=== PATIENT | male | born 1970 | race Two or more races ===

== ENCOUNTER 2020-08-19 10:55 | Outpatient (REF) | payer MEDICAID, SELFPAY ==
--- NOTE | 2020-08-19 | US_ITS ---
EXAMINATION: US VENOUS ULTRASOUND WITH DOPPLER LOWER EXTREMITY, LEFT CLINICAL INFORMATION: Edema and pain left lower extremity COMPARISON: None TECHNIQUE: Ultrasound of the deep veins is performed from the hip to the calf with compression sonography and color and pulse Doppler assessment. Spectral analysis with color-flow imaging is performed. FINDINGS: There is normal venous compression and respiratory variation and augmented flow. The visualized common femoral vein, superficial femoral vein, profunda femoral vein, popliteal vein, and the trifurcation region shows no evidence of deep venous thrombosis. There is no significant popliteal fossa cyst. No popliteal artery aneurysm. Patent varicosities are seen about the level of the knee and proximal calf. If the patient's symptoms persist, followup ultrasound in 5 days 7 days might be of value to exclude proximal propagation from a non-visualized calf vein. IMPRESSION: No acute DVT demonstrated in the left lower extremity. Varicose veins without evidence of thrombophlebitis.
== END 2020-08-19 10:56 | disposition home or self-care (01) ==
LOC: HO.US 10:55
PROVIDERS: Visit Provider Family Medicine
DX: R60.0 Localized edema (principal); M79.89 Other specified soft tissue disorders
CPT/HCPCS: 93971

== ENCOUNTER 2020-09-28 10:18 | Outpatient (REF) | payer MEDICAID, SELFPAY ==
[2020-09-28 11:58] LABS: MANUAL DIFF FLAG NO
[2020-09-28 12:01] LABS: Basophils Percent Auto 0.4 % (0-2); Eosinophils Absolute Auto 0.1 X10*3/uL (0.0-0.4); Eosinophils Percent Auto 1.4 % (0-4); Hematocrit 44.9 % (42-52); Hemoglobin 15.5 g/dl (14.0-18.0); Imm Gran Abs Auto 0.01 X10*3/uL (0.00-0.03); Imm Gran Pct Auto 0.2 % (0.0-0.4); Lymphocytes Absolute Auto 0.8 X10*3/uL (1.2-4.9); Lymphocytes Percent Auto 14.7 % (20-40); Mean Corpuscular HGB Conc 34.5 g/dl (31.0-36.0); Mean Corpuscular Hemoglobin 29.9 pg (27.0-33.0); Mean Corpuscular Volume 86.5 fL (80-98); Mean Platelet Volume 10.2 fL (9.4-12.4); Monocytes Absolute Auto 0.5 X10*3/uL (0.1-1.2); Neutrophils Absolute Auto 4.3 X10*3/uL (2.0-8.3); Neutrophils Percent Auto 75.3 % (45-73); Platelet Count 231 X10*3/uL (160-400); Red Blood Count 5.19 X10*6/uL (4.60-5.80); White Blood Count 5.7 X10*3/uL (4.8-10.8)
[2020-09-28 12:24] LABS: Alanine Aminotransferase 16 U/L (0-40); Albumin Level 4.9 g/dL (3.5-5.0); Alkaline Phosphatase 71 U/L (39-117); Anion Gap 14 (12-20); Aspartate Amino Transferase 12 U/L (5-37); Bilirubin Total 0.9 mg/dL (0.0-1.0); Blood Urea Nitrogen 15 mg/dL (9-16); C Reactive Protein 0.07 mg/dL (< or = 0.50); Calcium 10.1 mg/dL (8.4-10.2); Carbon Dioxide 33 mmol/L (22-29); Chloride 101 mmol/L (96-108); Estimated Glomerular Filt Rate > 60; Glucose Random 62 mg/dL (60-115); Potassium 4.2 mmol/l (3.3-5.1); Sodium 144 mmol/L (135-145); Total Protein 7.6 g/dL (6.5-8.0)
[2020-09-28 12:56] LABS: Erythrocyte Sedimentation Rate 3 MM/HR (0-15)
== END 2020-09-28 10:19 | disposition home or self-care (01) ==
LOC: HO.LAB 10:18
PROVIDERS: Visit Provider Student in an Organized Health Care Education/Training Program
DX: L40.50 Arthropathic psoriasis, unspecified (principal); L40.9 Psoriasis, unspecified; Z79.899 Other long term (current) drug therapy
CPT/HCPCS: 36415; 80053; 85025; 85652; 86140

== ENCOUNTER → 2020-09-29 10:03 | Outpatient (BNVA) | payer MEDICAID, SELFPAY | PROVIDERS: PCP Emergency Medicine; Referring Provider Emergency Medicine; Visit Provider Student in an Organized Health Care Education/Training Program | DX: Z76.89 Persons encountering health services in other specified circumstances (principal) ==

== ENCOUNTER 2020-10-16 16:43 | Outpatient (REF) | payer MEDICAID, SELFPAY | END 2020-10-16 16:44 | disposition home or self-care (01) | LOC: HO.LAB 16:43 | PROVIDERS: Visit Provider Internal Medicine | DX: Z20.828 Contact with and (suspected) exposure to other viral communicable diseases (principal) | CPT/HCPCS: C9803; U0003 ==

== ENCOUNTER 2021-02-04 14:37 | Outpatient (REF) | payer MEDICAID, SELFPAY ==
[2021-02-04 15:49] LABS: MANUAL DIFF FLAG NO
[2021-02-04 15:58] LABS: Basophils Percent Auto 0.4 % (0-2); Eosinophils Absolute Auto 0.1 X10*3/uL (0.0-0.4); Eosinophils Percent Auto 0.9 % (0-4); Hematocrit 44.3 % (42-52); Hemoglobin 15.7 g/dl (14.0-18.0); Imm Gran Abs Auto 0.02 X10*3/uL (0.00-0.03); Imm Gran Pct Auto 0.3 % (0.0-0.4); Lymphocytes Absolute Auto 0.9 X10*3/uL (1.2-4.9); Lymphocytes Percent Auto 11.6 % (20-40); Mean Corpuscular HGB Conc 35.4 g/dl (31.0-36.0); Mean Corpuscular Hemoglobin 30.2 pg (27.0-33.0); Mean Corpuscular Volume 85.2 fL (80-98); Mean Platelet Volume 9.8 fL (9.4-12.4); Monocytes Absolute Auto 0.6 X10*3/uL (0.1-1.2); Monocytes Percent Auto 8.5 % (2-11); Neutrophils Absolute Auto 5.8 X10*3/uL (2.0-8.3); Neutrophils Percent Auto 78.3 % (45-73); Platelet Count 241 X10*3/uL (160-400); White Blood Count 7.4 X10*3/uL (4.8-10.8)
[2021-02-04 16:24] LABS: Alanine Aminotransferase 24 U/L (0-40); Albumin Level 4.8 g/dL (3.5-5.0); Alkaline Phosphatase 69 U/L (39-117); Anion Gap 12 (12-20); Aspartate Amino Transferase 15 U/L (5-37); Blood Urea Nitrogen 14 mg/dL (9-16); C Reactive Protein 0.05 mg/dL (< or = 0.50); Calcium 9.9 mg/dL (8.4-10.2); Carbon Dioxide 33 mmol/L (22-29); Chloride 101 mmol/L (96-108); Estimated Glomerular Filt Rate > 60; Glucose Random 192 mg/dL (60-115); Potassium 4.6 mmol/L (3.3-5.1); Sodium 141 mmol/L (135-145); Total Protein 7.5 g/dL (6.5-8.0)
[2021-02-04 16:43] LABS: Erythrocyte Sedimentation Rate 4 MM/HR (0-15)
[2021-02-05 04:31] LABS: Hepatitis B Core Antibody Nonreactive (Nonreactive); ~HepC Num1 0.09 S/CO (0.00-0.79); ~Hepatitis A Antibody IgM Nonreactive (Nonreactive); ~Hepatitis C Antibody Nonreactive (Nonreactive)
[2021-02-05 04:57] LABS: HBS Num1 2.56 mIU/mL (0-7.99); HBsAGNum1 0.35 S/CO (0.00-0.99); Hepatitis B Surface Antigen Negative (Negative); ~Hepatitis B Surface Antibody NONREACTIVE (Nonreactive)
[2021-02-08 10:52] LABS: TS Negative Control Passed; TS Panel A 0; TS Panel B 0; TS Positive Control Passed; TSpotTB Negative (SeeBelow)
== END 2021-02-04 14:38 | disposition home or self-care (01) ==
LOC: HO.LAB 14:37
PROVIDERS: PCP Internal Medicine; Visit Provider Student in an Organized Health Care Education/Training Program
DX: L40.50 Arthropathic psoriasis, unspecified (principal); L40.9 Psoriasis, unspecified; Z79.899 Other long term (current) drug therapy
CPT/HCPCS: 36415; 80053; 85025; 85652; 86140; 86481; 86704; 86706; 86709; 86803; 87340; 99212

== ENCOUNTER 2021-11-16 09:00 | Outpatient (REF) | payer MEDICAID, SELFPAY ==
[2021-11-16 09:39] LABS: COVID-19 Test Negative (Negative)
== END 2021-11-16 09:01 | disposition home or self-care (01) ==
LOC: HO.LAB 09:00
PROVIDERS: Visit Provider Internal Medicine
DX: Z20.822 Contact with and (suspected) exposure to COVID-19 (principal)
CPT/HCPCS: 87635; C9803

== ENCOUNTER 2022-02-21 09:10 | Outpatient (REF) | payer MEDICAID, SELFPAY ==
--- NOTE | ~2022-02-21 | XR_ITS ---
EXAMINATION: XR SHOULDER, RIGHT CLINICAL INFORMATION: Pain COMPARISON: None TECHNIQUE: AP external rotation, Grashey, scapular Y, and axillary views of the right shoulder. FINDINGS: Bone alignment is normal. No fracture or dislocation is seen. The joint spaces are normal. There are small acromial osteophytes. Soft tissues are unremarkable. XR/XR shoulder RT min 2V IMPRESSION: Small acromial osteophyte otherwise unremarkable exam.
== END 2022-02-21 09:11 | disposition home or self-care (01) ==
LOC: HO.XRAY 09:10
PROVIDERS: PCP Nurse Practitioner; Visit Provider Nurse Practitioner
DX: M25.511 Pain in right shoulder (principal)
CPT/HCPCS: 73030

== ENCOUNTER 2022-05-21 08:12 | Emergency (ER) | payer MEDICAID, SELFPAY ==
[2022-05-21 08:14] VITALS: BP 147/71; PULSE 73; RESP 16; TEMP 36.3; O2SAT 98; BMI 32.3
--- NOTE | 2022-05-21 11:41 | ED.LOWEXIN ---
HPI - Extremity Injury (Lower) General Chief Complaint: Extremity Injury, Lower Stated Complaint: Abscess on bottom of R/L foot Time Seen by Provider: 05/21/22 10:43 Source: patient and family History of Present Illness HPI Narrative: 52-year-old male who is diabetic states that he when outside 2 days ago and stepped onto hot pavement and then noted that he developed blistering to the bottoms of bilateral feet and denies any fevers or chills. Related Data Home Medications Medication Instructions Recorded Confirmed aspirin 81 mg tablet,delayed 81 mg PO DAILY 02/04/21 02/04/21 release dulaglutide 3 mg/0.5 mL 3 mg subcut QWEEK 02/04/21 02/04/21 subcutaneous pen injector (Trulicity) furosemide 40 mg tablet (Lasix) 40 mg PO DAILY 02/04/21 02/04/21 lisinopril 20 1 tab PO DAILY 02/04/21 02/04/21 mg-hydrochlorothiazide 25 mg tablet Previous Rx's Medication Instructions Recorded folic acid 1 mg tablet 1 mg PO DAILY #30 tabs 02/04/21 methotrexate sodium 2.5 mg tablet 15 mg PO QWEEK #24 tabs 02/04/21 etanercept 50 mg/mL (1 mL) 50 mg subcut QWEEK #4 mL 02/09/21 subcutaneous pen injector (Enbrel SureClick) cephalexin 500 mg capsule 500 mg PO Q12H 5 days #10 caps 05/21/22 Allergies Allergy/AdvReac Type Severity Reaction Status Date / Time No Known Allergies Allergy Verified 05/21/22 08:20 Review of Systems Review of Systems: Pertinent positives and negatives as stated in HPI 10 point review of systems is otherwise negative. [facility] Past Medical History Source: nursing notes reviewed Medical History Diabetes Elev transaminase/LDH Hypercholesteremia Lumbago with sciatica, right side Neuropathy Psoriasis Psoriasis Psoriatic arthritis Family History Family History Father Diabetes HTN (hypertension) Mother Diabetes Social History Social History Alcohol intake: former Advance Directives: No Advance Directives Information Provided: Yes Physical Exam Vital Signs: Vital Signs: Last Vital Signs Temp 97.4 F 05/21/22 08:14 Pulse 73 05/21/22 08:14 Resp 16 05/21/22 08:14 BP 147/71 H 05/21/22 08:14 Pulse Ox 98 05/21/22 08:14 O2 Del Method 05/21/22 08:14 BMI result Body Mass Index 32.3 VITAL SIGNS: Reviewed. GENERAL: Well developed, well nourished, in no acute distress. HEAD: Normocephalic/atraumatic EYES: PERRLA, EOMI EARS: Ext canals without abnormality OROPHARYNX: no oral lesions noted, posterior pharynx clear LUNGS: Normal breath sounds. No adventitious sounds or accessory muscle use. SpO2<98> CARDIOVASCULAR: Regular rate and rhythm without noted murmurs ABDOMEN: Soft, non-tender, non-distended with bowel sounds. MUSCULOSKELETAL: No tenderness, deformities, or effusions noted on gross inspection. EXTREMITIES: No cyanosis, clubbing or edema, 1st degree yee to the plantar surface of bilateral feet along the MTP without surrounding erythema or induration.. SKIN: Inspection of the skin reveals no rashes NEUROLOGIC: Alert and oriented x 4. Strength and sensation to light touch were grossly intact x 4. Course Course Course Narrative: 52-year-old male with history and clinical presentation consistent with first-degree yee to the plantar surface of bilateral feet without evidence of infection, the overlying blister skin was extensively debrided the area was irrigated, dried, application of bacitracin ointment and a nonstick gauze pad with Kerlix and Kain wraps applied. Patient was provided with with a referral to wound care and instructed follow-up with his primary care provider. Discharge Plan Discharge Clinical Impression: Burn of left foot, Burn of right foot Patient Disposition: Home, Self-Care Instructions: High Protein Diet (ED) Additional Instructions: 1. Reanudar todos los medicamentos caseros. 2. Mantenga aleksandra vendaje en chris pies cassandra las pr?ximas 24 horas, no moje el vendaje, luego ret?relo y limpie suavemente el ?geetha con agua y jab?n, s?quese leelee los pies, aplique garcia pomada antibi?lopez y vuelva a aplicar vendajes. 3. Se le perera proporcionado garcia remisi?n para laina la cl?aida de cuidado de heridas y debe llamarlos el lunes por la ma?lilibeth. 4. Llame a louis proveedor de atenci?n primaria el lunes por la ma?lilibeth. Regrese a la perlita de emergencias por cualquier empeoramiento eric de chris s?ntomas. Prescriptions: New cephalexin 500 mg capsule 500 mg PO Q12H 5 Days Qty: 10 0RF No Action Enbrel SureClick 50 mg/mL (1 mL) pen injector 50 mg subcut QWEEK Qty: 4 3RF Trulicity 3 mg/0.5 mL pen injector 3 mg subcut QWEEK lisinopril-hydrochlorothiazide 20-25 mg tablet 1 tab PO DAILY aspirin 81 mg tablet,delayed release (DR/EC) 81 mg PO DAILY furosemide [Lasix] 40 mg tablet 40 mg PO DAILY methotrexate sodium 2.5 mg tablet 15 mg PO QWEEK Qty: 24 3RF folic acid 1 mg tablet 1 mg PO DAILY Qty: 30 2RF Referrals: [facility] [place] W[facility] [Outside] (Patient has bilateral yee to the bottom of his feet, they were debrided and antibiotic ointment was applied.) Reva Pierce [Primary Care Provider] - Print Language: Kinyarwanda
[2022-05-21] MEDS: Bacitracin Oint 14 GM TUBE 1 APPL TOPICAL (11:50)
== END 2022-05-21 12:33 | disposition home or self-care (01) ==
PROVIDERS: Emergency Provider Student in an Organized Health Care Education/Training Program; PCP Nurse Practitioner
DX: T25.121A Burn of first degree of right foot, initial encounter (principal); T25.122A Burn of first degree of left foot, initial encounter; T31.0 Burns involving less than 10% of body surface; X19.XXXA Contact with other heat and hot substances, initial encounter; E11.9 Type 2 diabetes mellitus without complications; E78.00 Pure hypercholesterolemia, unspecified; Y93.01 Activity, walking, marching and hiking; Y92.480 Sidewalk as the place of occurrence of the external cause; Y99.8 Other external cause status; Z79.82 Long term (current) use of aspirin; Z79.899 Other long term (current) drug therapy; Z79.4 Long term (current) use of insulin
CPT/HCPCS: 99282; 99283

== ENCOUNTER 2022-06-02 12:51 | Outpatient (RCR) | payer MEDICAID, SELFPAY | END 2022-08-25 14:08 | disposition home or self-care (01) | LOC: HO.WCC 12:51 | PROVIDERS: PCP Nurse Practitioner; Visit Provider Surgery | DX: E11.621 Type 2 diabetes mellitus with foot ulcer (principal); L97.522 Non-pressure chronic ulcer of other part of left foot with fat layer exposed; L97.512 Non-pressure chronic ulcer of other part of right foot with fat layer exposed; E11.40 Type 2 diabetes mellitus with diabetic neuropathy, unspecified; L84 Corns and callosities; Z91.14 Patient's other noncompliance with medication regimen; Z87.891 Personal history of nicotine dependence | CPT/HCPCS: 11042; 16020; 97597; 99212 ==

== ENCOUNTER 2022-09-15 08:00 | Outpatient (RCR) | payer MEDICAID, SELFPAY | END 2022-10-18 12:02 | disposition home or self-care (01) | LOC: HO.WCC 08:00 | PROVIDERS: PCP Registered Nurse; Visit Provider Surgery | DX: Z09 Encounter for follow-up examination after completed treatment for conditions other than malignant neoplasm (principal); E11.40 Type 2 diabetes mellitus with diabetic neuropathy, unspecified; I10 Essential (primary) hypertension; Z87.891 Personal history of nicotine dependence; Z86.31 Personal history of diabetic foot ulcer | CPT/HCPCS: 11042; 99212 ==

== ENCOUNTER 2022-12-01 07:55 | Outpatient (REF) | payer MEDICAID, SELFPAY ==
--- NOTE | ~2022-12-01 | XR_ITS ---
EXAMINATION: XR SACROILIAC JOINTS CLINICAL INFORMATION: Low back pain COMPARISON: None TECHNIQUE: 3 views of the sacroiliac joints FINDINGS: Bones and soft tissues are normal. No fracture. Alignment is anatomic. Sacroiliac joint spaces are well-maintained without erosions or surrounding sclerosis. XR/XR sacroiliac joint min 3V IMPRESSION: Normal sacroiliac joints.
[2022-12-01 09:34] LABS: MANUAL DIFF FLAG NO
[2022-12-01 10:02] LABS: Basophils Percent Auto 0.5 % (0-2); Eosinophils Absolute Auto 0.1 X10*3/uL (0.0-0.4); Eosinophils Percent Auto 1.7 % (0-4); Hematocrit 40.4 % (42.0-52.0); Hemoglobin 13.6 g/dl (14.0-18.0); Imm Gran Abs Auto 0.02 X10*3/uL (0.00-0.03); Imm Gran Pct Auto 0.3 % (0.0-0.4); Lymphocytes Absolute Auto 0.8 X10*3/uL (1.2-4.9); Lymphocytes Percent Auto 12.4 % (20-40); Mean Corpuscular HGB Conc 33.7 g/dl (31.0-36.0); Mean Corpuscular Hemoglobin 28.9 pg (27.0-33.0); Mean Corpuscular Volume 85.8 fL (80.0-98.0); Mean Platelet Volume 10.3 fL (9.4-12.4); Monocytes Absolute Auto 0.6 X10*3/uL (0.1-1.2); Monocytes Percent Auto 8.6 % (2-11); Neutrophils Absolute Auto 4.9 x10*3/uL (2.0-8.3); Neutrophils Percent Auto 76.5 % (45-73); Platelet Count 243 X10*3/uL (160-400); Red Blood Count 4.71 X10*6/uL (4.60-5.80); Red Cell Distribution Width 12.4 % (11.0-16.0); White Blood Count 6.4 X10*3/uL (4.8-10.8)
[2022-12-01 10:39] LABS: Alanine Aminotransferase 17 U/L (0-40); Albumin Level 4.5 g/dL (3.5-5.0); Alkaline Phosphatase 98 U/L (39-117); Anion Gap 12 (12-20); Aspartate Amino Transferase 10 U/L (5-37); Bilirubin Total 1.2 mg/dL (0.0-1.0); Blood Urea Nitrogen 15 mg/dL (9-16); C Reactive Protein < 0.10 mg/dL (< or = 0.50); Calcium 10.1 mg/dL (8.4-10.2); Carbon Dioxide 32 mmol/L (22-29); Chloride 98 mmol/L (96-108); Estimated Glomerular Filt Rate > 60; Glucose Random 490 mg/dL (60-115); Potassium 4.5 mmol/L (3.3-5.1); Sodium 137 mmol/L (135-145); Total Protein 6.9 g/dL (6.5-8.0); Uric Acid 5.1 mg/dL (3.4-7.0)
[2022-12-01 10:40] LABS: Erythrocyte Sedimentation Rate 7 MM/HR (0-15)
[2022-12-02 09:11] LABS: HBc Num1 0.07 S/CO (0.00-0.79); HBsAGNum1 0.38 S/CO (0.00-0.99); Hepatitis A Antibody IgM 0.12 Index (0-0.79); Hepatitis B Core Antibody Nonreactive (Nonreactive); Hepatitis B Surface Antigen Negative (Negative); ~HepC Num1 0.06 S/CO (0.00-0.79); ~Hepatitis A Antibody IgM Nonreactive (Nonreactive); ~Hepatitis C Antibody Nonreactive (Nonreactive)
[2022-12-02 10:35] LABS: HBS Num1 2.35 mIU/mL (0-7.99); ~Hepatitis B Surface Antibody NONREACTIVE (Nonreactive)
[2022-12-03 19:49] LABS: TS Negative Control Passed; TS Panel A 0; TS Panel B 0; TS Positive Control Passed; TSpotTB Negative (Negative)
[2022-12-07 16:42] LABS: HLA B27 Negative (Negative)
== END 2022-12-01 07:56 | disposition home or self-care (01) ==
LOC: HO.XRAY 07:55
PROVIDERS: PCP Registered Nurse; Visit Provider Student in an Organized Health Care Education/Training Program
DX: Z11.7 Encounter for testing for latent tuberculosis infection (principal); Z11.59 Encounter for screening for other viral diseases; M54.50 Low back pain, unspecified; L40.50 Arthropathic psoriasis, unspecified
CPT/HCPCS: 36415; 72202; 80053; 84550; 85025; 85652; 86140; 86481; 86704; 86706; 86709; 86803; 86812; 87340; 99202

== ENCOUNTER → 2023-02-22 07:13 | Outpatient (BNVA) | payer MEDICAID, SELFPAY | PROVIDERS: PCP Registered Nurse; Visit Provider Student in an Organized Health Care Education/Training Program | DX: L40.50 Arthropathic psoriasis, unspecified (principal); M54.41 Lumbago with sciatica, right side; G89.29 Other chronic pain; Z79.899 Other long term (current) drug therapy | CPT/HCPCS: 99212 ==

== ENCOUNTER → 2023-03-17 11:08 | Outpatient (BNVA) | payer MEDICAID, SELFPAY | PROVIDERS: PCP Registered Nurse; Visit Provider Nurse Practitioner Family | DX: M54.16 Radiculopathy, lumbar region (principal); M47.816 Spondylosis without myelopathy or radiculopathy, lumbar region; M47.817 Spondylosis without myelopathy or radiculopathy, lumbosacral region | CPT/HCPCS: 99202 ==

== ENCOUNTER 2023-03-29 09:34 | Outpatient (REF) | payer OTHER, SELFPAY ==
--- NOTE | ~2023-03-29 | XR_ITS ---
EXAMINATION: XR CHEST CLINICAL INFORMATION: Left pleural effusion COMPARISON: Previous chest x-ray January 2010 TECHNIQUE: 2 views of the chest were obtained. FINDINGS: The cardiac silhouette is upper normal in size. Hilar and mediastinal contours are otherwise unremarkable. The lungs are clear. No pleural effusion or pneumothorax. Degenerative changes of the spine. XR/XR chest 2V IMPRESSION: Upper normal-size cardiac silhouette. No pleural effusion.
--- NOTE | ~2023-03-29 | XR_ITS ---
EXAMINATION: XR LUMBOSACRAL SPINE WITH OBLIQUES CLINICAL INFORMATION: Spondylosis without myelopathy COMPARISON: Previous x-ray from 2012 TECHNIQUE: 7 views of the spine including flexion-extension and bilateral oblique views FINDINGS: Bone alignment is normal. No fracture or dislocation. Mild degenerative spondylosis at L3-L4. Normal disc spaces. No instability on flexion-extension views. No pars defect. Normal paraspinal soft tissues. XR/XR lumbar spine 6V w bending IMPRESSION: Mild spondylosis at L3
== END 2023-03-29 09:35 | disposition home or self-care (01) ==
LOC: HO.XRAY 09:34
PROVIDERS: Absent Provider Registered Nurse; PCP Registered Nurse; Visit Provider Nurse Practitioner Family
DX: M47.816 Spondylosis without myelopathy or radiculopathy, lumbar region (principal); M47.817 Spondylosis without myelopathy or radiculopathy, lumbosacral region; J90 Pleural effusion, not elsewhere classified
CPT/HCPCS: 71046; 72114

== ENCOUNTER 2023-05-08 14:16 | Outpatient (REF) | payer OTHER, SELFPAY | END 2023-05-08 14:17 | disposition home or self-care (01) | LOC: HO.MRI 14:16 | PROVIDERS: PCP Registered Nurse; Visit Provider Nurse Practitioner Family | DX: M47.816 Spondylosis without myelopathy or radiculopathy, lumbar region (principal); M54.16 Radiculopathy, lumbar region | CPT/HCPCS: 72148 ==

== ENCOUNTER 2023-05-22 08:23 | Outpatient (REF) | payer OTHER, SELFPAY ==
[2023-05-22 09:07] LABS: Basophils Percent Auto 0.5 % (0-2); Hemoglobin 13.5 g/dl (14.0-18.0); Mean Corpuscular Hemoglobin 28.7 pg (27.0-33.0); PLT CLUMP 1; Red Blood Count 4.71 X10*6/uL (4.60-5.80); Red Cell Distribution Width 13.2 % (11.0-16.0); SCAN SMEAR FLAG 1
[2023-05-22 09:08] LABS: Eosinophils Absolute Auto 0.1 X10*3/uL (0.0-0.4); Eosinophils Percent Auto 1.9 % (0-4); Hematocrit 39.1 % (42.0-52.0); Imm Gran Abs Auto 0.02 X10*3/uL (0.00-0.03); Imm Gran Pct Auto 0.3 % (0.0-0.4); Lymphocytes Absolute Auto 0.9 X10*3/uL (1.2-4.9); MANUAL DIFF FLAG SCAN; Mean Corpuscular HGB Conc 34.5 g/dl (31.0-36.0); Mean Platelet Volume 10.7 fL (9.4-12.4); Monocytes Absolute Auto 0.4 X10*3/uL (0.1-1.2); Monocytes Percent Auto 7.5 % (2-11); Neutrophils Absolute Auto 4.3 x10*3/uL (2.0-8.3); Neutrophils Percent Auto 74.8 % (45-73)
[2023-05-22 09:23] LABS: Platelet Count 197 X10*3/uL (160-400); SLIDE REVIEW VERIFIED; White Blood Count 5.7 X10*3/uL (4.8-10.8)
[2023-05-22 09:28] LABS: Alanine Aminotransferase 12 U/L (0-40); Albumin Level 4.2 g/dL (3.5-5.0); Alkaline Phosphatase 78 U/L (39-117); Anion Gap 13 (12-20); Aspartate Amino Transferase 10 U/L (5-37); Bilirubin Total 0.9 mg/dL (0.0-1.0); Blood Urea Nitrogen 14 mg/dL (9-16); C Reactive Protein < 0.10 mg/dL (< or = 0.50); Calcium 9.6 mg/dL (8.4-10.2); Carbon Dioxide 30 mmol/L (22-29); Chloride 102 mmol/L (96-108); Estimated Glomerular Filt Rate > 60; Sodium 140 mmol/L (135-145)
[2023-05-22 09:31] LABS: Glucose Random 392 mg/dL (60-115)
[2023-05-22 09:49] LABS: Erythrocyte Sedimentation Rate 9 MM/HR (0-15)
== END 2023-05-22 08:24 | disposition home or self-care (01) ==
LOC: HO.LAB 08:23
PROVIDERS: Visit Provider Student in an Organized Health Care Education/Training Program
DX: Z79.899 Other long term (current) drug therapy (principal)
CPT/HCPCS: 36415; 80053; 85025; 85652; 86140

== ENCOUNTER 2023-05-24 07:13 | Outpatient (AMB) | payer OTHER, SELFPAY ==
[2023-05-24 07:36] VITALS: BP 142/76; PULSE 74; TEMP 36.4; BMI 31.1
--- NOTE | 2023-05-24 07:36 | MHC.OFFVIS ---
Intake Vital Signs 05/24/23 07:36 Height 6 ft Weight 229 lb 4.492 oz BMI 31.1 BP 142/76 H Blood Pressure Location Rt brachial Position Sitting Pulse 74 Pulse Source Palpation Temp 97.5 F Temp Source Temporal Artery Scan Intake Visit Reasons: PsA Airline Pilot Required: Yes Airline Pilot Name: Peyman [id number] Allergies No Known Allergies Allergy (Verified 03/17/23 11:13) Medication List - Last Reconciled 05/24/23 by Berkley Garcia MD acetaminophen 650 mg PO TID PRN amlodipine 10 mg PO QPM aspirin 81 mg PO DAILY atorvastatin 40 mg PO QPM benzonatate 100 mg PO TID PRN dulaglutide (Trulicity) 3 mg subcut QWEEK folic acid 1 mg PO DAILY furosemide (Lasix) 40 mg PO DAILY gabapentin 100 mg PO QPM lidocaine 5% 1 patch topically; 30 days lisinopril-hydrochlorothiazide 20-25 mg 1 tab PO DAILY meloxicam 7.5 mg PO DAILY PRN metformin ER 500 mg PO methotrexate sodium 20 mg (8 x 2.5 mg) PO QWEEK sulfamethoxazole-trimethoprim 800-160 mg 1 tab PO BID tamsulosin mg PO QPM HPI HPI Comments History of Present Illness Details 53-year-old male with psoriasis and psoriatic arthritis returns for follow-up. He has been on Enbrel for 3 months now. Compliant with methotrexate 20 mg once weekly. States that his joint pain in his hand wrist is improved. Today is complaining of pain in his right knee and right ankle. His psoriasis is a little bit improved but continues to have diffuse psoriasis on his abdomen, back, elbows, knees, legs. Initial history: This is a 52-year-old male with past medical history of hypertension, diabetes, dyslipidemia, psoriasis, psoriatic arthritis who presents for evaluation of psoriatic arthritis. Patient was on methotrexate and Enbrel and his psoriasis and psoriatic arthritis were relatively well controlled. He has not received Enbrel for 3 years. He previously failed Humira. His last dose of methotrexate was 8 months ago. He states that his psoriasis has come back over his body and is quite itchy. He also has chronic low back pain, mentions history of sciatica. He states that his back pain is almost all day. Is not always worse in the morning. He also has diffuse pain in his hands, wrists, ankles. He was admitted 2 months ago for a diabetic foot infection. 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 Review of Systems Musc Reports back pain, Reports arthralgias, Reports joint swelling, Reports stiffness and Reports tingling Skin/Breast Details: Diffuse psoriatic rash Neuro Reports tingling Aller/Immun Reports no additional complaints Physical Exam Const General: cooperative and healthy appearing Nutritional Appearance: obese Limitations: no limitations HEENT Head: Yes normocephalic and Yes atraumatic Resp Effort & Inspection: normal respiratory effort and able to speak in complete sentences Skin Other: Diffuse silvery psoriatic patches on the back of his scalp, behind his ears, on back & abdomen, chest, extensor surface of his hands, elbows, knees, legs Extrem Other: No wrist swelling. No pain with full flexion and full extension No swelling or tenderness of his hands or fingers Bilateral ankle swelling and tenderness Mild Right knee tenderness Patient has reduced sensation of his feet and toes. Diffuse nail pitting Assessment & Plan Assessment & Plan (1) Psoriatic arthritis: Code(s): L40.50 - Arthropathic psoriasis, unspecified Plan: This is a 53-year-old male with psoriasis & psoriatic arthritis returns for follow-up. Patient has been on Enbrel for 3 months with some improvement in his joint pain but no improvement in his psoriasis rash. Will need to change DMARDs. Will need to change mode of action. An IL 17 inhibitor should be helpful for his skin and joints. Patient denies any known family history of inflammatory bowel disease. Discussed risks and benefits of Cosentyx. , patient agreed to proceed. Will start prior authorization for Cosentyx. Taltz will also be a good option if covered by insurance Continue methotrexate to 20 mg once weekly split dose plus folic acid daily. Labs 3 months before next visit Infectious screening hepatitis panel and T spot -ve 2022 (2) USP methotrexate user: Code(s): Z79.899 - Other long wall mining machine tender (current) drug therapy Plan: Side effects of methotrexate were discussed with the patient in detail including oral ulcers, elevated LFTs, abdominal discomfort, and possible pancytopenia is. Will monitor patient for side effects with frequent lab work. Advised patient to take folic acid daily to prevent complications of methotrexate. (3) Low back pain, unspecified: Code(s): M54.50 - Low back pain, unspecified Qualifiers: Chronicity: chronic Back pain laterality: right Sciatica presence: with sciatica Sciatica laterality: sciatica of right side Qualified Code(s): M54.41 - Lumbago with sciatica, right side; G89.29 - Other chronic pain Plan: MRI L-spine shows multiple degenerative changes. Patient was evaluated by Pain Management and deemed not to be a candidate for procedures due to uncontrolled diabetes. Advised patient on the importance of controlling his diabetes. Plan I spent 29 minutes reviewing patient's chart, evaluating patient, ordering diagnostic workup, counseling patient and documenting in the chart Orders: Orders Comprehensive Met. Panel 3 Months L40.50 - Arthropathic psoriasis, unspecified C Reactive Protein 3 Months L40.50 - Arthropathic psoriasis, unspecified Complete Blood Count Auto Diff 3 Months L40.50 - Arthropathic psoriasis, unspecified Erythrocyte Sedimentation Rate 3 Months L40.50 - Arthropathic psoriasis, unspecified Medications: Refilled methotrexate sodium 20 mg (8 x 2.5 mg) PO QWEEK 96 tabs 1RF folic acid 1 mg PO DAILY 90 tabs 1RF Coding Level of Care Code Est Pt Level 4 (66990) Diagnoses Psoriatic arthritis L40.50 USP methotrexate user Z79.899 Low back pain, unspecified M54.41; G89.29 Chronicity: chronic Back pain laterality: right Sciatica presence: with sciatica Sciatica laterality: sciatica of right side
== END 2023-05-24 07:57 | disposition home or self-care (01) ==
PROVIDERS: PCP Registered Nurse; Visit Provider Student in an Organized Health Care Education/Training Program
DX: L40.50 Arthropathic psoriasis, unspecified (principal); Z79.899 Other long term (current) drug therapy; M54.41 Lumbago with sciatica, right side; G89.29 Other chronic pain
CPT/HCPCS: 99214

== ENCOUNTER → 2023-05-24 07:13 | Outpatient (BNVA) | payer SELFPAY | PROVIDERS: Visit Provider Student in an Organized Health Care Education/Training Program | DX: L40.50 Arthropathic psoriasis, unspecified (principal); Z79.899 Other long term (current) drug therapy; M54.41 Lumbago with sciatica, right side; G89.29 Other chronic pain | CPT/HCPCS: 99212 ==

== ENCOUNTER 2023-09-13 07:32 | Outpatient (REF) | payer OTHER, SELFPAY ==
[2023-09-13 07:54] LABS: MANUAL DIFF FLAG NO
[2023-09-13 08:40] LABS: Basophils Percent Auto 0.3 % (0-2); Eosinophils Absolute Auto 0.1 X10*3/uL (0.0-0.4); Eosinophils Percent Auto 1.7 % (0-4); Hematocrit 36.9 % (42.0-52.0); Hemoglobin 12.8 g/dl (14.0-18.0); Imm Gran Abs Auto 0.03 X10*3/uL (0.00-0.03); Imm Gran Pct Auto 0.5 % (0.0-0.4); Lymphocytes Absolute Auto 0.9 X10*3/uL (1.2-4.9); Lymphocytes Percent Auto 14.4 % (20-40); Mean Corpuscular HGB Conc 34.7 g/dl (31.0-36.0); Mean Corpuscular Hemoglobin 28.7 pg (27.0-33.0); Mean Corpuscular Volume 82.7 fL (80.0-98.0); Mean Platelet Volume 9.5 fL (9.4-12.4); Monocytes Absolute Auto 0.6 X10*3/uL (0.1-1.2); Monocytes Percent Auto 9.1 % (2-11); Neutrophils Absolute Auto 4.7 x10*3/uL (2.0-8.3); Platelet Count 202 X10*3/uL (160-400); Red Blood Count 4.46 X10*6/uL (4.60-5.80); Red Cell Distribution Width 12.3 % (11.0-16.0); White Blood Count 6.4 X10*3/uL (4.8-10.8)
[2023-09-13 09:31] LABS: Alanine Aminotransferase 12 U/L (0-40); Albumin Level 3.7 g/dL (3.5-5.0); Alkaline Phosphatase 69 U/L (39-117); Anion Gap 11 (12-20); Aspartate Amino Transferase 10 U/L (5-37); Bilirubin Total 0.5 mg/dL (0.0-1.0); Blood Urea Nitrogen 16 mg/dL (9-16); Calcium 9.5 mg/dL (8.4-10.2); Carbon Dioxide 32 mmol/L (22-29); Chloride 103 mmol/L (96-108); Cholesterol 149 mg/dL (<200); Estimated Glomerular Filt Rate > 60; Glucose Random 274 mg/dL (60-115); HDL Cholesterol 28 mg/dL (>40); LDL Cholesterol Calculated 97 mg/dL (<100); Sodium 142 mmol/L (135-145); Total Protein 6.5 g/dL (6.5-8.0); Triglycerides 122 mg/dL (<150)
[2023-09-13 09:48] LABS: Syphilis Screen Nonreactive (Nonreactive)
[2023-09-13 09:49] LABS: HIV AB/AG Nonreactive (Nonreactive); HIV Num 1 0.06 S/CO (0.00-0.99)
[2023-09-13 15:16] LABS: Creatinine Urine 168.66 mg/dL; Microalbum/Creatinine Ratio Ur 1185.8 ug/mg cr (<30); Microalbumin Urine > 2000.0 mg/L
[2023-09-13 15:39] LABS: CT PCR NOT DETECTED (Not Detect.); NG PCR NOT DETECTED (Not Detect.)
[2023-09-15 17:24] LABS: HCV Log PCR <1.18 NOT DETECTED Log IU/mL (NOT DETECTED); HepC Viral Load <15 NOT DETECTED IU/mL (NOT DETECTED)
== END 2023-09-13 07:33 | disposition home or self-care (01) ==
LOC: HO.LAB 07:32
PROVIDERS: PCP Registered Nurse; Visit Provider Registered Nurse
DX: Z00.00 Encounter for general adult medical examination without abnormal findings (principal)
CPT/HCPCS: 0353U; 80053; 80061; 82043; 82570; 85025; 86780; 87389; 87522

== ENCOUNTER 2023-12-25 09:46 | Outpatient (REF) | payer OTHER, SELFPAY ==
[2023-12-25 14:48] LABS: MANUAL DIFF FLAG NO
[2023-12-25 14:49] LABS: Basophils Percent Auto 0.3 % (0-2); Eosinophils Absolute Auto 0.1 X10*3/uL (0.0-0.4); Hematocrit 37.7 % (42.0-52.0); Hemoglobin 12.1 g/dl (14.0-18.0); Imm Gran Abs Auto 0.01 X10*3/uL (0.00-0.03); Imm Gran Pct Auto 0.2 % (0.0-0.4); Lymphocytes Absolute Auto 0.6 X10*3/uL (1.2-4.9); Lymphocytes Percent Auto 9.4 % (20-40); Mean Corpuscular HGB Conc 32.1 g/dl (31.0-36.0); Mean Corpuscular Hemoglobin 28.3 pg (27.0-33.0); Mean Corpuscular Volume 88.3 fL (80.0-98.0); Mean Platelet Volume 9.9 fL (9.4-12.4); Monocytes Absolute Auto 0.8 X10*3/uL (0.1-1.2); Monocytes Percent Auto 12.5 % (2-11); Neutrophils Absolute Auto 4.6 x10*3/uL (2.0-8.3); Neutrophils Percent Auto 75.6 % (45-73); Platelet Count 194 X10*3/uL (160-400); Red Blood Count 4.27 X10*6/uL (4.60-5.80); Red Cell Distribution Width 14.3 % (11.0-16.0); White Blood Count 6.1 X10*3/uL (4.8-10.8)
[2023-12-25 15:08] LABS: Alanine Aminotransferase 24 U/L (0-40); Alkaline Phosphatase 60 U/L (39-117); Anion Gap 11 (12-20); Aspartate Amino Transferase 16 U/L (5-37); Bilirubin Total 1.6 mg/dL (0.0-1.0); Blood Urea Nitrogen 21 mg/dL (9-16); Carbon Dioxide 30 mmol/L (22-29); Chloride 103 mmol/L (96-108); Estimated Glomerular Filt Rate > 60; Glucose Random 106 mg/dL (60-115); Sodium 140 mmol/L (135-145); Total Protein 6.6 g/dL (6.5-8.0)
[2023-12-25 15:47] LABS: Microalbum/Creatinine Ratio Ur 1233.8 ug/mg cr (<30); Microalbumin Urine > 2000.0 mg/L
[2023-12-25 16:08] LABS: Influenza A PCR NEGATIVE (Negative); Influenza B PCR NEGATIVE (Negative); Resp Syncy Virus RNA Qual PCR NEGATIVE (Negative); SARS COV2 PCR INHOUSE NEGATIVE (Negative)
== END 2023-12-25 09:47 | disposition home or self-care (01) ==
LOC: HO.CHCLDS 09:46
PROVIDERS: Visit Provider Registered Nurse
DX: Z11.52 Encounter for screening for COVID-19 (principal); Z20.822 Contact with and (suspected) exposure to COVID-19; E11.65 Type 2 diabetes mellitus with hyperglycemia; R68.83 Chills (without fever); Z79.4 Long term (current) use of insulin
CPT/HCPCS: 0241U; 36415; 80053; 82043; 82570; 85025

== ENCOUNTER 2024-01-12 08:36 | Outpatient (REF) | payer OTHER, SELFPAY ==
[2024-01-12 08:52] LABS: MANUAL DIFF FLAG NO
[2024-01-12 09:38] LABS: Basophils Percent Auto 0.2 % (0-2); Eosinophils Absolute Auto 0.1 X10*3/uL (0.0-0.4); Eosinophils Percent Auto 2.3 % (0-4); Hematocrit 38.5 % (42.0-52.0); Hemoglobin 12.3 g/dl (14.0-18.0); Imm Gran Abs Auto 0.02 X10*3/uL (0.00-0.03); Imm Gran Pct Auto 0.4 % (0.0-0.4); Lymphocytes Absolute Auto 0.4 X10*3/uL (1.2-4.9); Lymphocytes Percent Auto 9.1 % (20-40); Mean Corpuscular HGB Conc 31.9 g/dl (31.0-36.0); Mean Corpuscular Hemoglobin 28.1 pg (27.0-33.0); Mean Corpuscular Volume 87.9 fL (80.0-98.0); Mean Platelet Volume 9.6 fL (9.4-12.4); Monocytes Absolute Auto 0.4 X10*3/uL (0.1-1.2); Monocytes Percent Auto 8.1 % (2-11); Neutrophils Absolute Auto 3.9 x10*3/uL (2.0-8.3); Neutrophils Percent Auto 79.9 % (45-73); Platelet Count 207 X10*3/uL (160-400); Red Blood Count 4.38 X10*6/uL (4.60-5.80); Red Cell Distribution Width 14.2 % (11.0-16.0); White Blood Count 4.8 X10*3/uL (4.8-10.8)
[2024-01-12 10:11] LABS: Alanine Aminotransferase 22 U/L (0-40); Albumin Level 4.1 g/dL (3.5-5.0); Alkaline Phosphatase 77 U/L (39-117); Anion Gap 12 (12-20); Aspartate Amino Transferase 15 U/L (5-37); Bilirubin Total 1.3 mg/dL (0.0-1.0); Blood Urea Nitrogen 20 mg/dL (9-16); C Reactive Protein < 0.04 mg/dL (< or = 0.50); Calcium 9.7 mg/dL (8.4-10.2); Carbon Dioxide 31 mmol/L (22-29); Chloride 107 mmol/L (96-108); Estimated Glomerular Filt Rate > 60; Glucose Random 122 mg/dL (60-115); Potassium 4.5 mmol/L (3.3-5.1); Sodium 145 mmol/L (135-145); Total Protein 6.8 g/dL (6.5-8.0)
[2024-01-12 10:52] LABS: Erythrocyte Sedimentation Rate 7 MM/HR (0-15)
== END 2024-01-12 08:37 | disposition home or self-care (01) ==
LOC: HO.LAB 08:36
PROVIDERS: PCP Registered Nurse; Visit Provider Student in an Organized Health Care Education/Training Program
DX: L40.50 Arthropathic psoriasis, unspecified (principal)
CPT/HCPCS: 36415; 80053; 85025; 85652; 86140

== ENCOUNTER 2024-01-16 08:07 | Outpatient (AMB) | payer OTHER, SELFPAY ==
[2024-01-16 08:09] VITALS: BP 142/78; PULSE 83; O2SAT 93; BMI 32.6
--- NOTE | 2024-01-16 08:09 | MHC.OFFVIS ---
Intake Vital Signs 01/16/24 08:09 Height 6 ft Weight 240 lb 4.862 oz BMI 32.6 BP 142/78 H Blood Pressure Location Rt brachial Position Sitting Pulse 83 Pulse Source Pulse Oximeter Pulse Oximetry (%) 93 Oxygen Delivery Method Room Air Intake Visit Reasons: Follow Up Intake Note: Patient last seen 05/24/23 presents today for follow up and test results. Reports he was seen at [facility] a few months ago, he was retaining fluid Crochet Beader Required: Yes Crochet Beader Language: Hair Blender Name: [id number] Information Interpreted: clinical only Accompanied by: Spouse Allergies No Known Allergies Allergy (Verified 01/16/24 08:14) Medication List - Last Reconciled 01/16/24 by Berkley Garcia MD acetaminophen 650 mg PO TID PRN amlodipine 5 mg PO DAILY aspirin 81 mg PO DAILY atorvastatin 40 mg PO QPM benzonatate 100 mg PO TID PRN dulaglutide (Trulicity) mg subcut folic acid 1 mg PO DAILY furosemide (Lasix) 40 mg PO DAILY gabapentin 100 mg PO QPM insulin glargine (Lantus Solostar U-100 Insulin) 10 units subcut BEDTIME ixekizumab (Taltz Autoinjector) Inject 2 pens (160 mg) at weeks 0 then 1 pen at week 4 Then inject 1 pen every 4 weeks lidocaine 5% 1 patch topically; 30 days lisinopril-hydrochlorothiazide 20-25 mg 1 tab PO DAILY meloxicam 7.5 mg PO DAILY PRN metformin ER 500 mg PO methotrexate sodium 20 mg (8 x 2.5 mg) PO QWEEK tamsulosin mg PO QPM HPI HPI Comments History of Present Illness Details 53-year-old male with psoriasis and psoriatic arthritis returns for follow-up. He states that he never got Taltz. Stated that he was admitted to [facility] 2 months ago and was told that he was retaining fluid, his believes it was his heart he was advised to stay off the methotrexate. He continues to have psoriasis patches all over. Initial history: This is a 52-year-old male with past medical history of hypertension, diabetes, dyslipidemia, psoriasis, psoriatic arthritis who presents for evaluation of psoriatic arthritis. Patient was on methotrexate and Enbrel and his psoriasis and psoriatic arthritis were relatively well controlled. He has not received Enbrel for 3 years. He previously failed Humira. His last dose of methotrexate was 8 months ago. He states that his psoriasis has come back over his body and is quite itchy. He also has chronic low back pain, mentions history of sciatica. He states that his back pain is almost all day. Is not always worse in the morning. He also has diffuse pain in his hands, wrists, ankles. He was admitted 2 months ago for a diabetic foot infection. 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 Review of Systems [facility] [place] Reports back pain, Reports arthralgias and Reports stiffness Skin/Breast Details: Diffuse psoriatic rash Aller/Immun Reports no additional complaints Physical Exam Vital Signs: Last Vital Signs Pulse 83 01/16/24 08:09 BP 142/78 H 01/16/24 08:09 Pulse Ox 93 01/16/24 08:09 Oxygen Delivery Method Room Air 01/16/24 08:09 BMI result Body Mass Index 32.6 Const General: cooperative and healthy appearing Nutritional Appearance: obese Limitations: no limitations HEENT Head: Yes normocephalic and Yes atraumatic Resp Effort & Inspection: normal respiratory effort and able to speak in complete sentences Skin Other: Diffuse silvery psoriatic patches on the back of his scalp, behind his ears, on back & abdomen, chest, extensor surface of his hands, elbows, knees, legs Extrem Other: No wrist swelling. No pain with full flexion and full extension No swelling or tenderness of his hands or fingers Mild Right knee tenderness Patient has reduced sensation of his feet and toes. Diffuse nail pitting Results Reviewed Results Reviewed: XR SACROILIAC JOINTS 12/01/22 FINDINGS: Bones and soft tissues are normal. No fracture. Alignment is anatomic. Sacroiliac joint spaces are well-maintained without erosions or surrounding sclerosis. IMPRESSION: Normal sacroiliac joints. LUMBOSACRAL SPINE, THREE VIEWS 12/12/2011 HISTORY: BACK PAIN FINDINGS: There is normal alignment of the lumbosacral spine. No fractures are seen. There is L5-S1 facet arthropathy. IMPRESSION: No acute abnormality. Mild spondylosis. Assessment & Plan Assessment & Plan (1) Psoriatic arthritis: Code(s): L40.50 - Arthropathic psoriasis, unspecified Plan: This is a 53-year-old male with psoriasis & psoriatic arthritis returns for follow-up. After last visit, Taltz was apparently approved but patient did not receive it. He states that he was admitted to [facility] 2 months ago, his believes it was a problem with his heart he was advised to stay off methotrexate. Currently patient is not taking any DMARDs. Any has diffuse psoriasis patches all over. I will request records from [facility], in the meantime patient can hold methotrexate for now. 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
== END 2024-01-16 08:42 | disposition home or self-care (01) ==
PROVIDERS: PCP Registered Nurse; Visit Provider Student in an Organized Health Care Education/Training Program
DX: L40.50 Arthropathic psoriasis, unspecified (principal); Z79.899 Other long term (current) drug therapy
CPT/HCPCS: 99214

== ENCOUNTER → 2024-01-16 08:07 | Outpatient (BNVA) | payer OTHER, SELFPAY | PROVIDERS: PCP Registered Nurse; Visit Provider Student in an Organized Health Care Education/Training Program | DX: L40.9 Psoriasis, unspecified (principal); L40.50 Arthropathic psoriasis, unspecified; Z79.899 Other long term (current) drug therapy | CPT/HCPCS: 99212 ==

== ENCOUNTER 2024-04-16 08:01 | Outpatient (AMB) | payer OTHER, SELFPAY ==
[2024-04-16 08:05] VITALS: BP 156/82; PULSE 76; O2SAT 87; BMI 32.3
--- NOTE | 2024-04-16 08:05 | A.OFFVIS_ITS ---
Vital Signs 04/16/24 08:05 Height 6 ft Weight 238 lb 1.588 oz BMI 32.3 BP 156/82 H Blood Pressure Location Rt brachial Position Sitting Pulse 76 Pulse Source Pulse Oximeter Pulse Oximetry (%) 87 L Oxygen Delivery Method Room Air Intake Visit Reasons: PsA Intake Note: Pt reports feeling tired, dizzy Has not received Taltz Switchboard Operator Helper Required: Yes Switchboard Operator Helper Name: Ceasar [id number] Accompanied by: Allergies No Known Allergies Allergy (Verified 04/16/24 08:18) Medication List - Last Reconciled 04/16/24 by Berkley Garcia MD acetaminophen 650 mg PO TID PRN aspirin 81 mg PO DAILY atorvastatin 40 mg PO QPM benzonatate 100 mg PO TID PRN dulaglutide (Trulicity) mg subcut folic acid 1 mg PO DAILY furosemide (Lasix) 80 mg PO BID gabapentin 100 mg PO QPM insulin glargine (Lantus Solostar U-100 Insulin) 10 units subcut BEDTIME ixekizumab (Taltz Autoinjector) Inject 2 pens (160 mg) at weeks 0 then 1 pen at week 4 Then inject 1 pen every 4 weeks lidocaine 5% 1 patch topically; 30 days lisinopril-hydrochlorothiazide 20-25 mg 1 tab PO DAILY meloxicam 7.5 mg PO DAILY PRN metformin ER 500 mg PO tamsulosin mg PO QPM HPI Comments Details: 53-year-old male with psoriasis and psoriatic arthritis returns for follow-up. He states that he never got Taltz. States that he does not have any joint pain or swelling today. States that his psoriasis is about the same. He has not on any DMARDs. 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 Initial history: This is a 52-year-old male with past medical history of hypertension, diabetes, dyslipidemia, psoriasis, psoriatic arthritis who presents for evaluation of psoriatic arthritis. Patient was on methotrexate and Enbrel and his psoriasis and psoriatic arthritis were relatively well controlled. He has not received Enbrel for 3 years. He previously failed Humira. His last dose of methotrexate was 8 months ago. He states that his psoriasis has come back over his body and is quite itchy. He also has chronic low back pain, mentions history of sciatica. He states that his back pain is almost all day. Is not always worse in the morning. He also has diffuse pain in his hands, wrists, ankles. He was admitted 2 months ago for a diabetic foot infection. 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 Review of Systems Musc Denies arthralgias Skin/Breast Details: Diffuse psoriatic rash Reports rash Aller/Immun Reports no additional complaints Physical Exam Const General: cooperative and healthy appearing Nutritional Appearance: obese Limitations: no limitations HEENT Head: Yes normocephalic and Yes atraumatic Resp Effort & Inspection: normal respiratory effort and able to speak in complete sentences Auscultation: clear to auscultation bilaterally Cardio Rate: regular rate Skin Other: Diffuse silvery psoriatic patches on back & abdomen, extensor surface of his hands, elbows, knees, legs Extrem Other: No wrist swelling. No pain with full flexion and full extension No swelling or tenderness of his hands or fingers Mild Right knee tenderness Patient has reduced sensation of his feet and toes. Diffuse nail pitting Results Reviewed Results Reviewed: XR SACROILIAC JOINTS 12/01/22 FINDINGS: Bones and soft tissues are normal. No fracture. Alignment is anatomic. Sacroiliac joint spaces are well-maintained without erosions or surrounding sclerosis. IMPRESSION: Normal sacroiliac joints. LUMBOSACRAL SPINE, THREE VIEWS 12/12/2011 HISTORY: BACK PAIN FINDINGS: There is normal alignment of the lumbosacral spine. No fractures are seen. There is L5-S1 facet arthropathy. IMPRESSION: No acute abnormality. Mild spondylosis. Assessment & Plan Assessment & Plan (1) Psoriatic arthritis: Code(s): L40.50 - Arthropathic psoriasis, unspecified Category: Medical Plan: This is a 53-year-old male with psoriasis & psoriatic arthritis returns for follow-up. After last visit, Taltz was apparently approved but patient did not receive it. Since patient was admitted at [facility] for heart failure in early 2023 he was advised to stop methotrexate. He has not currently on any DMARDs. His psoriatic arthritis seems to be well controlled today but has diffuse psoriasis rash and needs to be started on a DMARD. We will check on Taltz authorization. Advised patient to start it as soon as possible Labs before next visit in 3 months Plan I spent 20 minutes reviewing patient's chart, evaluating patient, ordering diagnostic workup, counseling patient and documenting in the chart Orders: Orders Comprehensive Met. Panel 3 Months L40.50 - Arthropathic psoriasis, unspecified C Reactive Protein 3 Months L40.50 - Arthropathic psoriasis, unspecified Complete Blood Count Auto Diff 3 Months L40.50 - Arthropathic psoriasis, unspecified Erythrocyte Sedimentation Rate 3 Months L40.50 - Arthropathic psoriasis, unspecified Coding Level of Care Code Est Pt Level 3 (58098) Diagnoses Psoriatic arthritis L40.50
== END 2024-04-16 08:26 | disposition home or self-care (01) ==
PROVIDERS: PCP Registered Nurse; Visit Provider Student in an Organized Health Care Education/Training Program
DX: L40.50 Arthropathic psoriasis, unspecified (principal)
CPT/HCPCS: 99213

== ENCOUNTER → 2024-04-16 08:01 | Outpatient (BNVA) | payer OTHER, SELFPAY | PROVIDERS: PCP Registered Nurse; Visit Provider Student in an Organized Health Care Education/Training Program | DX: L40.50 Arthropathic psoriasis, unspecified (principal) | CPT/HCPCS: 99212 ==

== ENCOUNTER 2024-04-25 08:15 | Outpatient (REF) | payer OTHER, SELFPAY ==
[2024-04-25 08:26] LABS: MANUAL DIFF FLAG NO
[2024-04-25 08:57] LABS: Basophils Percent Auto 0.5 % (0-2); Eosinophils Absolute Auto 0.2 X10*3/uL (0.0-0.4); Eosinophils Percent Auto 3.1 % (0-4); Hematocrit 37.6 % (42.0-52.0); Hemoglobin 11.9 g/dl (14.0-18.0); Imm Gran Abs Auto 0.01 X10*3/uL (0.00-0.03); Imm Gran Pct Auto 0.2 % (0.0-0.4); Lymphocytes Absolute Auto 0.5 X10*3/uL (1.2-4.9); Lymphocytes Percent Auto 8.7 % (20-40); Mean Corpuscular HGB Conc 31.6 g/dl (31.0-36.0); Mean Corpuscular Hemoglobin 27.4 pg (27.0-33.0); Mean Corpuscular Volume 86.4 fL (80.0-98.0); Mean Platelet Volume 9.6 fL (9.4-12.4); Monocytes Absolute Auto 0.5 X10*3/uL (0.1-1.2); Monocytes Percent Auto 8.9 % (2-11); Neutrophils Absolute Auto 4.6 x10*3/uL (2.0-8.3); Neutrophils Percent Auto 78.6 % (45-73); Platelet Count 235 X10*3/uL (160-400); Red Blood Count 4.35 X10*6/uL (4.60-5.80); Red Cell Distribution Width 14.4 % (11.0-16.0); White Blood Count 5.9 X10*3/uL (4.8-10.8)
[2024-04-25 09:28] LABS: Alanine Aminotransferase 14 U/L (0-40); Albumin Level 3.6 g/dL (3.5-5.0); Alkaline Phosphatase 148 U/L (39-117); Anion Gap 13 (12-20); Aspartate Amino Transferase 13 U/L (5-37); Bilirubin Total 1.1 mg/dL (0.0-1.0); Blood Urea Nitrogen 23 mg/dL (9-16); C Reactive Protein 0.34 mg/dL (< or = 0.50); Calcium 9.7 mg/dL (8.4-10.2); Carbon Dioxide 30 mmol/L (22-29); Chloride 103 mmol/L (96-108); Estimated Glomerular Filt Rate > 60; Glucose Random 122 mg/dL (60-115); Sodium 142 mmol/L (135-145); Total Protein 6.7 g/dL (6.5-8.0)
[2024-04-25 09:37] LABS: Erythrocyte Sedimentation Rate 28 MM/HR (0-15)
== END 2024-04-25 08:16 | disposition home or self-care (01) ==
LOC: HO.LAB 08:15
PROVIDERS: PCP Registered Nurse; Visit Provider Student in an Organized Health Care Education/Training Program
DX: L40.50 Arthropathic psoriasis, unspecified (principal)
CPT/HCPCS: 36415; 80053; 85025; 85652; 86140

== ENCOUNTER 2024-06-25 07:33 | Outpatient (REF) | payer OTHER, SELFPAY ==
[2024-06-25 08:05] LABS: MANUAL DIFF FLAG NO
[2024-06-25 08:12] LABS: Basophils Percent Auto 0.4 % (0-2); Eosinophils Absolute Auto 0.1 X10*3/uL (0.0-0.4); Eosinophils Percent Auto 2.3 % (0-4); Hemoglobin 14.6 g/dl (14.0-18.0); Imm Gran Abs Auto 0.01 X10*3/uL (0.00-0.03); Imm Gran Pct Auto 0.2 % (0.0-0.4); Lymphocytes Absolute Auto 0.5 X10*3/uL (1.2-4.9); Lymphocytes Percent Auto 9.7 % (20-40); Mean Corpuscular Hemoglobin 27.8 pg (27.0-33.0); Mean Corpuscular Volume 81.9 fL (80.0-98.0); Mean Platelet Volume 9.2 fL (9.4-12.4); Monocytes Absolute Auto 0.4 X10*3/uL (0.1-1.2); Monocytes Percent Auto 7.2 % (2-11); Neutrophils Absolute Auto 4.5 x10*3/uL (2.0-8.3); Neutrophils Percent Auto 80.2 % (45-73); Platelet Count 151 X10*3/uL (160-400); Red Blood Count 5.25 X10*6/uL (4.60-5.80); Red Cell Distribution Width 14.2 % (11.0-16.0); White Blood Count 5.6 X10*3/uL (4.8-10.8)
[2024-06-25 08:38] LABS: Alanine Aminotransferase 33 U/L (0-40); Alkaline Phosphatase 86 U/L (39-117); Anion Gap 12 (12-20); Aspartate Amino Transferase 15 U/L (5-37); B Type Natriuretic Peptide 411 pg/mL (<100); Bilirubin Total 0.9 mg/dL (0.0-1.0); Blood Urea Nitrogen 17 mg/dL (9-16); C Reactive Protein < 0.10 mg/dL (< or = 0.50); Carbon Dioxide 32 mmol/L (22-29); Chloride 99 mmol/L (96-108); Cholesterol 138 mg/dL (<200); Estimated Glomerular Filt Rate > 60; Glucose Random 345 mg/dL (60-115); HDL Cholesterol 33 mg/dL (>40); LDL Cholesterol Calculated 83 mg/dL (<100); Potassium 4.1 mmol/L (3.3-5.1); Sodium 139 mmol/L (135-145); Total Protein 6.8 g/dL (6.5-8.0); Triglycerides 112 mg/dL (<150)
[2024-06-25 08:39] LABS: Anion Gap 13 (12-20); Blood Urea Nitrogen 17 mg/dL (9-16); Calcium 9.9 mg/dL (8.4-10.2); Carbon Dioxide 32 mmol/L (22-29); Chloride 99 mmol/L (96-108); Estimated Glomerular Filt Rate > 60; Glucose Random 344 mg/dL (60-115); Potassium 4.2 mmol/L (3.3-5.1); Sodium 140 mmol/L (135-145)
[2024-06-25 08:50] LABS: Appearance Urine Clear; Color Urine Yellow; Glucose Urine UA >=1000 mg/dL (Negative); Leukocyte Esterase Urine Negative (Negative); Nitrite Urine Negative (Negative); UMIC TRIGGER UA YES; Urine Blood Small (1+) (Negative); Urine Ketones Negative (Negative); Urine Protein 300 (3+) mg/dL (Neg-Trace)
[2024-06-25 09:18] LABS: Creatinine Urine 41.46 mg/dL; Total Protein Urine Random 199 mg/dL (<12)
[2024-06-25 09:35] LABS: Erythrocyte Sedimentation Rate 7 MM/HR (0-15)
[2024-06-25 09:53] LABS: Bacteria Urine None Seen (None Seen); RBC Urine 0-2 /HPF (0-2); Squamous Epithelial Cell Urine 0-2 /HPF (0-2); WBC Urine 0-5 /HPF (0-5)
[2024-06-26 22:54] LABS: Complement C3 67 mg/dL (82-185)
[2024-06-27 13:58] LABS: Kappa Light Chain, Free Serum 31.1 mg/L (3.3-19.4); Kappa/Lambda Lt Ch Free Ratio 2.53 (0.26-1.65); Lambda Light Chain, Free Serum 12.3 mg/L (5.7-26.3)
[2024-06-27 22:13] LABS: Prot Elec - Alpha1 0.2 g/dL (0.2-0.3); Prot Elec - Alpha2 0.7 g/dL (0.5-0.9); Prot Elec - Beta 1 0.4 g/dL (0.4-0.6); Prot Elec - Beta 2 0.4 g/dL (0.2-0.5); Prot Elec - Gamma 0.8 g/dL (0.8-1.7); Prot Elec - Total Protein 6.6 g/dL (6.1-8.1)
[2024-07-04 23:33] LABS: Phospholipase A2 IgG ELISA <4 RU/mL; Phospholipase A2 IgG IFA NEGATIVE (NEGATIVE)
== END 2024-06-25 07:34 | disposition home or self-care (01) ==
LOC: HO.LAB 07:33
PROVIDERS: Absent Provider Student in an Organized Health Care Education/Training Program; PCP Registered Nurse; Referring Provider Internal Medicine Cardiovascular Disease; Visit Provider Student in an Organized Health Care Education/Training Program
DX: R80.1 Persistent proteinuria, unspecified (principal); L40.50 Arthropathic psoriasis, unspecified
CPT/HCPCS: 36415; 80048; 80053; 80061; 81001; 82043; 82570; 83520; 83521; 83880; 84156; 84165; 85025; 85652; 86140; 86160; 86255

== ENCOUNTER 2025-01-27 11:30 | Outpatient (REF) | payer OTHER, SELFPAY ==
--- OUTSIDE RECORDS SUMMARY | 2025-01-27 13:09 | XMS_ITS | Encounter Summary ---
Author Organization [employer] Address [address] [facility] [address] [place] [address] Care Team Providers Care Battery Hand Name Role Phone Marilee Cordero COCONUT JELLY ROLLER Primary Care Provider [phone] Cristo Garcia MD Unavailable Doris Candelario Unavailable [phone] Yoselyn Lyons Unavailable Unavailable Balbir Don Unavailable Encounter Details Date Type Department Care Team (Late st Contact Info) Description 08/11/2023 Abstract [facility] [address] [place] [address] Gavino Lacey, DMD [address] [place] [address] Social History Tobacco Use Types Packs/Day Years Used Date Smoking Tobacco: Never Smokeless Tobacco: Never Alcohol Use Standard Drinks/Week Comments Never 0 (1 standard drink = 0.6 oz pur e alcohol) Depression Answer Date Recorded Patient Health Questionnaire-9 Score 1 10/17/2022 Housing Stability Answer Date Recorded What is your housing situation today? I have clayton sanchez 08/10/[address] you li ve. Do you have problems with any of the following? None of the above 08/10/2023 Food Insecurity Answer Date Recorded Within the past 12 months, y ou worried that your food would run out before you got money to buy more: Never True 08/10/2023 Within the past 12 months,th e food you bought just didn't last and you didn't have enough money to get more: Never True 09/2023 Transportation Answer Date Recorded In the past 12 months, has l ack of transportation kept you from medical appts, meetings, work or from getting things needed for daily living? No 08/10/2023 Utilities Answer Date Recorded In the past 12 months, has t he electric, gas, oil or water company threatened to shut off services in your home? No 08/10/2023 Depression Answer Date Recorded Patient Health Questionnaire-2 Score 0 10/17/2022 Sex and Gender Information Value Date Recorded Sex Assigned at Male 08/29/2022 10:18 AM EDT Legal Sex Male 10:18 AM EDT Gender Identity Male 08/29/2022 10:18 AM EDT Sexual Orientation Don't know 08/29/2022 10 :18 AM EDT documented as of this encounter Plan of Treatment Upcoming Encounters Date Type Department Care Team (Late st Contact Info) Description 04/28/2025 9:00 AM EDT Office Visit [facility] [address] [place] [address] Marilee Cordero FNP [address] [place] [address] documented as of this encounter Visit Diagnoses Not on filedocumented in this encounter Additional Health Concerns Assessment Noted Time PHQ-9 Depression Total Score: 1 10/17/20 22 10:05 AM EST documented as of this encounter Care Teams Battery Hand Relationship Specialty Start Date End Date Marilee Cordero FNP [address] [place] [address] PCP - General Family Medicine 03/23/23 Cristo Garcia MD [address] [place] [id number] Rheumatology 09/01/24 Doris Candelario [address] [place] [address] Cardiology 09/01/24 Yoselyn Lyons [address] [place] [address] Ophthalmology 09/01/24 Balbir Don [address] [facility] [address] [place] [address] Sleep Medicine 09/01/24 Dr. Ramirez [address] [place] [address] [address] [place] [address] Nephrology 09/01/24 documented as of this encounter
--- OUTSIDE RECORDS SUMMARY | 2025-01-27 13:09 | XMS_ITS | Encounter Summary ---
Author Organization [employer] Address [address] [facility] [address] [place] [address] Care Team Providers Care Speech And Drama Teacher Name Role Phone Marilee Cordero EMBEDDED SOFTWARE ENGINEER Primary Care Provider [phone] Cristo Garcia MD Unavailable Doris Candelario Unavailable [phone] Yoselyn Lyons Unavailable Unavailable Balbir Don Unavailable Encounter Details Date Type Department Care Team (Latest Contact Info) Description 01/27/2025 Travel Social History Tobacco Use Types Packs/Day Years Used Date Smoking Tobacco: Never Smokeless Tobacco: Never Alcohol Use Standard Drinks/Week Comments Never 0 (1 standard drink = 0.6 oz pur e alcohol) Depression Answer Date Recorded Patient Health Questionnaire-9 Score 13 01/27/2025 Patient Health Questionnaire-9 Score 13 01/27/2025 Last PHQ-9: Questionnaire Data Not on file 0 01/27/2025 Housing Stability Answer Date Recorded What is your housing situation today? I have clayton sanchez 08/30/[address] you li ve. Do you have problems with any of the following? None of the above 08/30/2024 Food Insecurity Answer Date Recorded Within the past 12 months, y ou worried that your food would run out before you got money to buy more: Never True 08/30/2024 Within the past 12 months,th e food you bought just didn't last and you didn't have enough money to get more: Never True 10/2023 Transportation Answer Date Recorded In the past 12 months, has l ack of transportation kept you from medical appts, meetings, work or from getting things needed for daily living? No 08/30/2024 Utilities Answer Date Recorded In the past 12 months, has t he electric, gas, oil or water company threatened to shut off services in your home? No 08/30/2024 Depression Answer Date Recorded Patient Health Questionnaire-2 Score 4 01/27/2025 Internet Access Answer Date Recorded Internet Access Q1 Yes 08/30/2024 Internet Access Q2 Not on file 08/30/2024 Sex and Gender Information Value Date Recorded Sex Assigned at Male 08/29/2022 10:18 AM EDT Legal Sex Male 10:18 AM EDT Gender Identity Male 08/29/2022 10:18 AM EDT Sexual Orientation Don't know 08/29/2022 10 :18 AM EDT documented as of this encounter Plan of Treatment Upcoming Encounters Date Type Department Care Team (Late st Contact Info) Description 04/28/2025 9:00 AM EDT Office Visit [facility] [address] [place] [address] Marilee Cordero FNP [address] [place] [address] documented as of this encounter Visit Diagnoses Not on filedocumented in this encounter Additional Health Concerns Assessment Noted Time PHQ-9 Depression Total Score: 13 025 8:59 AM EDT documented as of this encounter Care Teams Speech And Drama Teacher Relationship Specialty Start Date End Date Marilee Cordero FNP [address] [place] [address] PCP - General Family Medicine 03/23/23 Cristo Garcia MD [address] [place] [id number] Rheumatology 09/01/24 Doris Candelario [address] [place] [address] Cardiology 09/01/24 Yoselyn Lyons [address] [place] [address] Ophthalmology 09/01/24 Balbir Don [address] [facility] [address] [place] [address] Sleep Medicine 09/01/24 Dr. Ramirez [address] [place] [address] [address] [place] [address] Nephrology 09/01/24 documented as of this encounter
--- OUTSIDE RECORDS SUMMARY | 2025-01-27 13:10 | XMS_ITS | Clinical Summary ---
Author Organization [employer] Address [address] [place] [address] Care Team Providers Care Compressor Station Chief Engineer Name Role Phone Marilee Cordero BRANDEN Primary Care Provider [phone] Cristo Garcia MD Unavailable Doris Candelario Unavailable [phone] Yoselyn Lyons Unavailable Unavailable Balbir Don Unavailable Allergies No known active allergies Medications Blood Pressure kit Use daily Active Blood Glucose Monitoring Suppl (FreeStyle Pax Lite) w/Device kit 1 each by Other route in the morning and at bedtime. 09/19/20 22 Active TRUEplus Lancets 33G misc TEST BLOOD SUGAR THREE TIMES DAILY 100 each 6 02/25/20 23 Active Additional Information Patient not taking.Reported on 03/18/2024 FREESTYLE LITE test strip TEST BLOOD SUGAR THREE TIMES DAILY 100 strip 6 02/25/20 23 Active folic acid (Folvite) 1 MG tablet Take 1 tablet by mouth in the morning. 12/01/19 23 Active insulin pen needle 32G x 5 mm miscIndications :Type 2 diabetes mellitus with hyperglycemia, with long-term current use of insulin (CMS/[facility]) Subcutaneous once daily use with lantus pen 100 each 3 03/23/20 23 Active gabapentin (Neurontin) 100 MG capsuleIndicati ons:Peripheral nerve disease TAKE 1 CAPSULE BY MOUTH EVERY EVENING (for nerve pain) 90 capsule 1 04/26/20 23 Active Continuous Blood Gluc Ride Mechanic (FreeStyle Osmani 2 Cordova) deviceIndicatio ns:Type 2 diabetes mellitus with hyperglycemia, with long-term current use of insulin (CMS/HCC) Scan sensor every 8 hours 1 each 11/26/19 24 Active Continuous Blood Gluc Sensor (FreeStyle Osmani 2 Sensor) miscIndications :Type 2 diabetes mellitus with hyperglycemia, with long-term current use of insulin (CMS/[facility]) Apply 1 sensor every 14 days 2 each 3 11/26/19 24 Active aspirin (Aspirin Low Dose) 81 MG EC tabletIndicatio ns:Congestive heart failure, unspecified HF chronicity, unspecified heart failure type (CMS/HCC) Take 1 tablet (81 mg) by mouth in the morning. 90 tablet 1 02/09/20 24 Active metFORMIN XR (Glucophage-XR) 500 MG 24 hr tabletIndicatio ns:Type 2 diabetes mellitus with hyperglycemia, with long-term current use of insulin (CMS/[facility]) TAKE 1 TABLET BY MOUTH TWICE DAILY IN THE MORNING AND IN THE EVENING WITH MEALS 180 tablet 1 02/09/20 24 Active Lantus SoloStar 100 UNIT/ML penIndications: Type 2 diabetes mellitus with hyperglycemia, with long-term current use of insulin ([facility]) Inject 10 Units under the skin at bedtime. 15 mL 3 02/09/20 24 Active atorvastatin (Lipitor) 40 MG tabletIndicatio ns:Congestive heart failure, unspecified HF chronicity, unspecified heart failure type (CMS/HCC) Take 1 tablet (40 mg) by mouth at bedtime. 90 tablet 1 02/09/20 24 Active acetaminophen (Tylenol) 500 MG tablet Take 1 tablet (500 mg) by mouth every 6 (six) hours if needed for mild pain for up to 20 doses. 20 tablet 03/18/20 24 Active carvedilol (Coreg) 6.25 MG tablet Take 6.25 mg by mouth with breakfast and with evening meal. 05/21/20 24 Active Jardiance 10 MG Take 10 mg by mouth Once per day. Active Taltz 80 MG/ML injection 05/09/20 24 Active Entresto 24-26 MG tablet Take 1 tablet by mouth 2 times daily. 06/11/20 24 Active furosemide (Lasix) 40 MG tablet Take 40 mg by mouth 2 times daily. Renal: GILMAR BAZAN MD Active tamsulosin (Flomax) 0.4 MG 24 hr capsuleIndicati ons:Benign prostatic hyperplasia, unspecified whether lower urinary tract symptoms present TAKE 1 CAPSULE BY MOUTH EVERY EVENING (1/2 HOUR AFTER MEALS) 90 capsule 1 10/22/20 24 Active spironolactone (Aldactone) 25 MG tabletIndicatio ns:Hypertension Take 25 mg by mouth Once per day. Cards Active lisinopril-hydr oCHLOROthiazide 20-25 MG tabletIndicatio ns:Congestive heart failure, unspecified HF chronicity, unspecified heart failure type (CMS/HCC) Take 1 tablet by mouth in the morning. 90 tablet 1 02/09/20 24 025 Discontin ued(Thera py completed ) Active Problems Problem Noted Date Diagnosed Date Proteinuria 09/01/2024 Overview (09/01/2024): Followed by [facility] - Dr. James Roydiance 10mg daily Psoriatic arthritis 08/30/2024 Overview (08/30/2024): Followed by [facility] Rheum - Dr. Garcia Med therapy: DMARD, Taltz Previous tx: methotrexate and Enbrel (hx of failed Humira tx in Rheum note 02/04/21). Plan to hold methotrexate with hx cardiac conditions Assessment & Plan (09/01/2024 1:13 PM EST): Plan to start first dose on 09/01/24 Impacted third molar tooth 03/18/2024 Severe dental caries 03/18/2024 Non-restorable tooth 03/18/2024 Congestive heart failure 11/26/2023 Overview (01/27/2025): Following with [facility] Jul 2023: Nuclear stress test: Negative ECG portion of the stress test. Myocardial perfusion imaging is normal with no evidence or fixed or reversible perfusion defects. Moderately reduced global LV function? ? with resting left ventricular EF of 33%, and post stress LVEF 36%. LV size moderately dilated. No evidence of transient ischemic dilation. March 2024: EF 35-40% Hospitalization for CHF exacerbation: Oct 2023 at [facility] - Reviewed condition and concerning signs/symptoms - Cont med regimen below: Aspirin 81mg daily Atorvastatin 40mg nightly Furosemide 40mg BID (RX nephrology) Jardiance 10mg daily Carvedilol 6.25mg BID Entresto 24-26mg BID Spironolactone 25mg daily Assessment & Plan (01/27/2025 9:50 AM EDT): Cont current therapy, symptomatic SOB/BELL Referral to [facility] for further eval Assessment & Plan (09/01/2024 1:28 PM EST): Cont current therapy Assessment & Plan (03/03/2024 2:47 PM EDT): - Reviewed condition and concerning signs/symptoms - Cont med regimen below: Aspirin 81mg daily Atorvastatin 40mg nightly Lisinopril-hydrochlorothiazide 20-25mg daily Furosemide 40mg BID Assessment & Plan (02/12/2024 4:49 PM EDT): - Reviewed condition and concerning signs/symptoms - Suspect exacerbation of symptoms 2/2 lack of medications, however restarted furosemide x 2 days ago and notes feeling improvement. No increase in diuretic today. - Plan to re-start following cards meds: Aspirin 81mg daily Atorvastatin 40mg nightly Lisinopril-hydrochlorothiazide 20-25mg daily -Follow up 1-2 weeks, ED precautions reviewed Assessment & Plan (11/26/2023 3:43 PM EST): Basic education and handouts provided today, reviewed med changes. Discussed importance of following up with Cards and monitoring for any concerning signs/symptoms at home Repeat BMP ordered Mitral regurgitation 08/13/2023 Overview (08/13/2023): ? ? 08/03/23: DEV by Dr. Alvarez. Left ventricular size is normal. Moderate concentric left ventricular hypertrophy. LVSF low-normal with EF 50-55%. Grade 1 diastolic dysfunction with an impaired relaxation filling pattern. Left atrium moderately dilated. Mild-mod mitral regurgitation is present. Varicose veins of both lower extremities with pa in 11/21/2022 Overview (11/21/2022): Bilateral vein scan on 10/27/22 showed incompetent veins on left and right LE Type 2 diabetes mellitus wit h hyperglycemia, with long-term current use of insulin 10/17/2022 Overview (01/27/2025): Lab Results Component Value Date HGBA1C 10.9 (A) 01/27/2025 HGBA1C 12.7 (A) 08/30/2024 HGBA1C 6.8 (A) 02/26/2024 HGBA1C 10.2 (A) 11/24/2023 HGBA1C 13.5 (A) 08/11/2023 HGBA1C 7.4 (H) 04/27/2022 HGBA1C 12.0 (H) 01/26/2022 -CGM denied by insurance 2023 d/t not injecting insulin multiple times per day Med regimen: Continue Lantus 10 units at bedtime Continue metformin 500mg BID Jardiance 10mg daily (rx through [employer]) - Trulicity on hold at this time due to high cost. May consider SGLT2 as additional agent if needed -Denies red flag symptoms, ED precautions reviewed - Microalbumin: above normal limits, following with renal for proteinuria Assessment & Plan (01/27/2025 9:45 AM EDT): Declines adjustments in med regimen or CDTM referral today despite being above goal. Pt planning to make nutrition and lifestyle interventions. Reviewed risks/concerns of persistent hyperglycemia. Assessment & Plan (09/01/2024 1:27 PM EST): Declines adjustments in med regimen today despite being significantly over goal. Pt planning to make nutrition and lifestyle interventions. Reviewed risks/concerns of persistent hyperglycemia. Assessment & Plan (02/12/2024 4:52 PM EDT): Lab Results Component Value Date HGBA1C 10.2 (A) 11/24/2023 HGBA1C 13.5 (A) 08/11/2023 HGBA1C 12.5 (A) 03/23/2023 HGBA1C 7.4 (H) 04/27/2022 HGBA1C 12.0 (H) 01/26/2022 -CGM denied by insurance 2023 d/t not injecting insulin multiple times per day Med regimen: Continue Lantus 10 units at bedtime Continue metformin 500mg BID - Trulicity on hold at this time due to high cost. May consider SGLT2 as additional agent if needed -Denies red flag symptoms, ED precautions reviewed Assessment & Plan (12/25/2023 6:38 PM EST): Lab Results Component Value Date HGBA1C 10.2 (A) 11/24/2023 HGBA1C 13.5 (A) 08/11/2023 HGBA1C 12.5 (A) 03/23/2023 HGBA1C 7.4 (H) 04/27/2022 HGBA1C 12.0 (H) 01/26/2022 -Improvement noted from last visit, although continues to be poorly controlled. Pt declines any med changes at this time, but would be interested in CGM. Med regimen: Continue Lantus 20 units at bedtime Continue metformin 500mg BID Continue Trulicity 4.5mg subcutaneous weekly -Denies red flag symptoms, ED precautions reviewed -CGM ordered 11/26/23 for PA approval -Plan: reports improvement in BG readings with dietary changes and adherence to med regimen above. Cont with same regimen. Will check on status of CGM PA. Assessment & Plan (11/26/2023 3:15 PM EST): Lab Results Component Value Date HGBA1C 10.2 (A) 11/24/2023 HGBA1C 13.5 (A) 08/11/2023 HGBA1C 12.5 (A) 03/23/2023 HGBA1C 7.4 (H) 04/27/2022 HGBA1C 12.0 (H) 01/26/2022 -Improvement noted from last visit, although continues to be poorly controlled. Pt declines any med changes at this time, but would be interested in CGM. Med regimen: ?? Continue Lantus 20 units at bedtime ?? Continue metformin 500mg BID ?? Continue Trulicity 4.5mg subcutaneous weekly -Denies red flag symptoms, ED precautions reviewed -CGM ordered 11/26/23 for PA approval Assessment & Plan (08/28/2023 9:27 AM EDT): Lab Results Component Value Date HGBA1C 13.5 (A) 08/11/2023 -BG 391 in office, reports FBG 140s this AM -Improvement noted from last visit, although continues to not be well controlled. Pt declines any med changes at this time, would like to prioritize lifestyle interventions. Med regimen: ?? Continue Lantus 20 units at bedtime ?? Continue metformin 500mg BID ?? Continue Trulicity 4.5mg subcutaneous weekly -Denies red flag symptoms, ED precautions reviewed Assessment & Plan (08/13/2023 9:11 AM EDT): Lab Results Component Value Date HGBA1C 13.5 (A) 08/11/2023 -BG initially [facility] in office, continued to be [facility] s/p 10 units lispro subcutaneous. After 2nd admin of 10 units lispro, BG 437. UA neg for ketones -Not well controlled, although pt declines addition of new medication at this time. In agreement to increase lantus Med regimen: ?? Increase Lantus to 20 units at bedtime, reviewed med safety and SE ?? Continue metformin 500mg BID ?? Continue Trulicity 4.5mg subcutaneous weekly -Denies red flag symptoms, ED precautions reviewed Follow up in 2 weeks with medications from home and home BG log Assessment & Plan (04/12/2023 1:53 PM EDT): Lab Results Component Value Date HGBA1C 12.5 (A) 03/23/2023 -Reports improvement in BG values following re-start of lantus. Would like to continue with same regimen for now and work on lifestyle interventions. Continue with current med regimen: ?? Lantus 10 units at bedtime, reviewed med safety and SE ?? Continue metformin 500mg BID ?? Continue Trulicity 4.5mg subcutaneous weekly -Denies red flag symptoms, ED precautions reviewed Assessment & Plan (10/20/2022 9:22 AM EST): -A1c 11.3 on 09/06/22 -Pt reports improvement in BG values at home, now maximum post prandial value low 200s, denies episodes of hypoglycemia -As noting continued improvements in BG readings s/p infection, lifestyle modifications, and med adherence, shared decision making not to make med adjustments at this time -Continue lantus 15 units at bedtime, reviewed med safety and SE -Continue metformin 500mg BID -Continue Trulicity 3mg subcutaneous weekly -Denies red flag symptoms, ED precautions reviewed Routine health maintenance 10/17/2022 Overview (09/01/2024): Colon CA screening: no previous screening. Declines colonoscopy referral, but agrees to Cologuard. Order sent 08/11/23. Re-sent 08/30/24 Last PE: 08/11/23 Assessment & Plan (08/13/2023 9:01 AM EDT): Routine lab work including asymptomatic STI screening ordered today Diabetic foot ulcer 08/24/2022 Assessment & Plan (10/20/2022 9:12 AM EST): -Skin appears well healed, no further pus, drainage, or erythema -Foot X-ray previously ordered, pending Peripheral nerve disease 08/24/2022 Overview (05/02/2023): Sciatica Pain mgmt 03/17/23: Patient is not able to walk and stand on heels and tip toes due to bilateral foot pain due to chronic diabetic foot ulcers, numbness and psoriatic arthritis poor candidate for therapeutic injections given significantly elevated A1C >11. Diabetic macular edema 06/30/2022 Overview (09/01/2024): Followed by Manjula Lyons Proliferative diabetic retin opathy associated with type 2 diabetes mellitus 06/30/2022 Overview (09/01/2024): Followed by Manjula Lyons April 2024: eval for sudden vision loss and pain OS Plan: Avastin injections Benign prostatic hyperplasia 02/26/2015 Overview (08/13/2023): ?? Continues with tamsulosin 0.4mg daily ?? Reports symptoms well controlled Mixed anxiety and depressive disorder 03/13/2013 Hyperlipidemia 01/25/2013 Allergic rhinitis 08/14/2012 Asthma 08/14/2012 Gastroesophageal reflux disease 08/14/2012 Psoriasis 08/14/2012 Assessment & Plan (01/27/2025 9:46 AM EDT): -Previous tx with methotrexate and Enbrel (hx of failed Humira tx in Rheum note 02/04/21) -Re-established with [facility] Nov 2021, last consult appt December 2023 Plan to hold methotrexate with hx cardiac conditions Taltz injections through Rheum with notable improvement Assessment & Plan (03/03/2024 2:42 PM EDT): -Previous tx with methotrexate and Enbrel (hx of failed Humira tx in Rheum note 02/04/21) -Re-established with [facility] Rheum Nov 2021, last consult appt December 2023 Plan to hold methotrexate with hx cardiac conditions Authorization for Taltz is pending Assessment & Plan (08/11/2023 1:16 PM EDT): -Previous tx with methotrexate and Enbrel (hx of failed Humira tx in Rheum note 02/04/21) -Re-established with [facility] Rheum Nov 2021 ?? Says may have re-started on methotrexate but unsure. Will bring med list to next appt. -Pt was also referred to [facility] Derm Team, appt pending Assessment & Plan (04/12/2023 1:37 PM EDT): -Previous tx with methotrexate and Enbrel (hx of failed Humira tx in Rheum note 02/04/21) -Re-established with [facility] Rheum Nov 2021 ?? Says may have re-started on methotrexate but unsure. Will bring med list to next appt. -Pt was also referred to [facility] Derm Team, appt pending Assessment & Plan (10/20/2022 9:18 AM EST): -Previous tx with methotrexate and Enbrel (hx of failed Humira tx in Rheum note 02/04/21) -Reports has not been taking any meddications for psoriasis in > 6 month, interested in re-establishing with specialists -Upcoming appt with [facility] Rheum Nov 2021 -Pt was also referred to [facility] Derm Team, appt pending Hypertension 06/13/2012 Assessment & Plan (01/27/2025 9:45 AM EDT): -Reports home BP readings well controlled, f.up if above goal Assessment & Plan (03/03/2024 2:47 PM EDT): -Reports home BP readings well controlled, f.up if above goal Assessment & Plan (11/26/2023 3:45 PM EST): -Initial and repeat BP elevated in office, reports readings well controlled at home -Continue with amlodipine 5mg daily -Continue with lisinopril/HCTZ 20-25mg daily -Cont furosemide 40mg BID -Encourage lifestyle modifications such as low salt diet, fluid restriction, physical activity as able -Monitor home BP readings -ED precautions Assessment & Plan (08/28/2023 9:25 AM EDT): -Initial and repeat BP elevated in office, reports readings well controlled at home -Continue with amlodipine 10mg daily -Continue with lisinopril/HCTZ 20-25mg daily -Encourage lifestyle modifications such as low salt diet, maintaining healthy weight, and increasing activity with goal of 150 mins of aerobic exercise weekly -Bring in home readings next appt -ED precautions Assessment & Plan (08/13/2023 8:51 AM EDT): -Continue with amlodipine 10mg daily -Continue with lisinopril/HCTZ 20-25mg daily -Encourage lifestyle modifications such as low salt diet, maintaining healthy weight, and increasing activity with goal of 150 mins of aerobic exercise weekly -Bring in home readings next appt -ED precautions Assessment & Plan (04/10/2023 10:41 PM EDT): -Continue with amlodipine 10mg daily -Continue with lisinopril/HCTZ 20-25mg daily -Encourage lifestyle modifications such as low salt diet, maintaining healthy weight, and increasing activity with goal of 150 mins of aerobic exercise weekly Assessment & Plan (10/20/2022 9:17 AM EST): -Continue with amlodipine 10mg daily -Continue with lisinopril/HCTZ 20-25mg daily -Encourage lifestyle modifications such as low salt diet, maintaining healthy weight, and increasing activity with goal of 150 mins of aerobic exercise weekly Obstructive sleep apnea syndrome 06/13/2012 Overview (09/01/2024): [facility] - Dr. Balbir Don Cont w/ CPAP, need updated titration report (home sleep study ordered Jul 2024 per specialist) Assessment & Plan (08/13/2023 8:36 AM EDT): ?? Continues with CPAP nightly ?? Due for settings adjustment, and also reporting intermittent discomfort with mask ?? Referral to [facility] Sleep Medicine for further eval and management Resolved Problems Problem Noted Date Diagnosed Date Resolved Date Retention of urine 02/26/2015 3 Elevated levels of transamin ase & lactic acid dehydrogenase 08/14/2012 10/20/2022 Encounters Date Type Department Care Team Description 01/27/2025 9:00 AM EDT Office Visit [facility] [address] [place] [address] Marilee Cordero FNP Congestive heart failure, unspecified HF chronicity, unspecified heart failure type (CMS/HCC) (Primary Dx); Primary hypertension; Type 2 diabetes mellitus with hyperglycemia, with long-term current use of insulin (CMS/HCC); Routine health maintenance; Psoriatic arthritis (CMS/HCC); Hematuria, unspecified type; Psoriasis 01/27/2025 Travel 01/23/2025 Telephone [facility] [address] [place], [place] [phone] Marilee Cordero FNP Chart Prep 12/23/2024 Refill [facility] MEDICINE [address] [place], [place] [phone] Marilee Cordero FNP 11/26/[address] [facility] MED [facility] PED[facility] [address] [place], [place] [phone] Lindsay Nur, MorenitaD 11/19/2024 Telephone [facility] [address] [place], [place] [phone] Marilee Cordero FNP October recall from Last 3 Months Immunizations Name Administration Dates Next Due Hep A, ped/adol, 2 dose 09/27/2005,03/24/2005 Hep B, Adolescent or Pediatric 09/27/2005,2004,03/24/2005 Influenza injectable quadriv alent IIV4 with preservative 09/28/2016 Influenza injectable quadriv alent preservative free 08/11/2023,10/17/2022,09/17/2019 Influenza, IIV3, injectable 08/12/2014, 1 Influenza, Split (incl. shawna fied surface antigen) 07/09/2013,08/14/2012 Influenza, seasonal, injecta ble, preservative free 08/30/2024 Moderna Covid-19 Vaccine 12+ 01/14/2022,03/03/20 21,02/03/2021 Pneumococcal Conjugate PCV 13 06/28/2018 Pneumococcal Polysaccharide PPSV23 09/30/2008 TD (adult), 2 Lf tetanus tox oid, preservative free, adsorbed 05/26/2022,02/25/2005 Tdap 08/12/2014 Zoster, Recombinant 05/26/2022,03/25/2022 Family History Medical History Relation Name Comments Coronary artery disease Father Diabetes Father Hypertension Mother Asthma Sister Relation Name Status Comments Father Mother Sister Social History Tobacco Use Types Packs/Day Years Used Date Smoking Tobacco: Never Smokeless Tobacco: Never Tobacco Cessation:Counseling Given: Not Answered Alcohol Use Standard Drinks/Week Comments Never 0 (1 standard drink = 0.6 oz pur e alcohol) Depression Answer Date Recorded Patient Health Questionnaire-9 Score 13 01/27/2025 Patient Health Questionnaire-9 Score 13 01/27/2025 Last PHQ-9: Questionnaire Data Not on file 0 01/27/2025 Housing Stability Answer Date Recorded What is your housing situation today? I have claytonivan sanchez 08/30/[address] you [...] Don't know 08/29/2022 10 :18 AM EDT Last Filed Vital Signs Vital Sign Reading Time Taken Comments Blood Pressure 144/76 01/27/2025 8:59 AM EDT Pulse 68 01/27/2025 8:58 AM EDT Temperature 36.6 ??C (97.8 ??F) 01/27/2025 8:58 AM ED T Respiratory Rate 22 01/27/2025 8:58 AM EDT Oxygen Saturation 93% 01/27/2025 8:58 AM EDT Inhaled Oxygen Concentration - - Weight 108 kg (238 lb 6 oz) 01/27/2025 8:58 AM E DT Height 182.9 cm (6') 01/27/2025 8:58 AM EDT Body Mass Index 32.33 01/27/2025 8:58 AM EDT Plan of Treatment Upcoming Encounters Date Type Department Care Team (Late st Contact Info) Description 04/28/2025 9:00 AM EDT Office Visit [facility] MED [facility]EDS [address] [place] [address] Marilee Cordero FNP [address] [place] [address] Health Maintenance Due Date Last Done Comments CT Colonography 1970 Colonoscopy 1970 Colorectal Cancer Screening 1970 FIT DNA/Cologuard 1970 FIT 1970 FOBT 1970 Sigmoidoscopy 1970 Eye Exam 1980 Alcohol/Substance Use Screening 1982 Hepatitis B Vaccines (1 of 3 - 19+ 3-dose series) 1989 09/27/2005, 05/31/2005, 03/24/2005 Dental Prophylaxis 11/10/2012 05/09/2012, 0 12/13/2011, 07/22/2009 Dental Oral Exam 07/11/2014 01/07/2014 Pneumococcal Vaccine: 50+ Years (3 of 3 - PCV20 or PCV21) 06/28/2023 06/28/2018, 09/30/2008 Diabetes: Foot Exam 10/17/2023 10/17/2022, 10/17/2022, 10/17/2022, Additional history exists COVID-19 Vaccine (2023- season) 2024 01/14/2022, 03/03/2021, 02/03/2021 Dental X-Ray: Bitewings 08/12/2024 08/11/20 23, 01/07/2014, 10/01/2010, Additional history exists Lipid Panel 09/13/2024 09/13/2023, 03/31, 01/26/2022 Diabetes: Urine Protein Screening 12/25/2024 12/25/2023, 09/13/2023, 01/26/2022, Additional history exists Diabetes: Hemoglobin A1C 04/28/2025 025, 08/30/2024, 02/26/2024, Additional history exists Depression Monitoring (PHQ-9) 07/29/2025 01/27/2025, 01/27/2025 SDOH Screening 08/30/2025 08/30/2024 Depression Screening 01/27/2026 01/27/2025, 01/28/20 Tobacco Screening 01/27/2026 01/27/2025 Dental X-Ray: Full Mouth 03/19/2027 03/18/2024, 07/01 DTaP/Tdap/Td Vaccines (3 - Td or Tdap) 05/26/2032 05/26/2022, 08/12/2014, 02/25/2005 RSV Patients and Patients Aged 60 years or older (1 - 1-dose 75+ series) 2045 Hepatitis A Vaccines Aged Out 09/27/2005, 03/24/20 05 No longer eligible based on patient's age to complete this topic Zoster Vaccines Completed 05/26/2022, 03/25/2022 HIV Screening Completed 09/13/2023 Hepatitis C Screening Completed 09/13/2023, 023 Influenza Vaccine Completed 08/30/2024, , 10/17/2022, Additional history exists HIB Vaccines Aged Out No longer eligi ble based on patient's age to complete this topic HPV Vaccines Aged Out No longer eligi ble based on patient's age to complete this topic IPV Vaccines Aged Out No longer eligi ble based on patient's age to complete this topic Meningococcal Vaccine Aged Out No teresa ramon eligible based on patient's age to complete this topic RSV under 20 months Aged Out No longe r eligible based on patient's age to complete this topic Rotavirus Vaccines Aged Out No longer eligible based on patient's age to complete this topic Procedures Procedure Name Priority Date/Time Associated Diagnosis Comments POCT URINALYSIS DIPSTICK Routine 01/27/2025 9:17 AM EDT Type 2 diabetes mellitus with hyperglycemia, with long-term current use of insulin ([facility]) POCT GLYCATED HEMOGLOBIN, TOTAL Routine 01/27/2025 9:16 AM EDT Type 2 diabetes mellitus with hyperglycemia, with long-term current use of insulin ([facility]) POCT GLUCOSE Routine 01/27/2025 9:16 AM EDT Type 2 diabetes mellitus with hyperglycemia, with long-term current use of insulin ([facility]) PANORAMIC RADIOGRAPHIC IMAGE Routine 03/18/2024 9:00 AM EDT ALBUMIN, RANDOM URINE W/CREATININE Routine 12/25/2023 9:50 AM EST Type 2 diabetes mellitus with hyperglycemia, with long-term current use of insulin ([facility]) HEPATITIS C VIRAL RNA, QUANTITATIVE, REAL-TIME PCR Routine 09/13/2023 7:53 AM EST Physical exam HIV 1/2 ANTIGEN/ANTIBODY, FOURTH GENERATION W/RFL Routine 09/13/2023 7:53 AM EST Physical exam LIPID PANEL, STANDARD Routine 09/13/2023 7:53 AM EST Physical exam BITEWING - SINGLE RADIOGRAPHIC IMAGE Routine 08/11/2023 11:30 AM EDT PERIODIC ORAL EVALUATION - ESTABLISHED PATIENT Routine 01/07/2014 12:00 AM EDT PROPHYLAXIS - ADULT Routine 05/09/2012 1 2:00 AM EDT from Last 3 Months or Most Recently Relevant to Health Maintenance Results * (ABNORMAL) POCT Urinalysis (01/27/2025 9:17 AM EDT) Color, UA Light Yellow Clarity, UA Clear Glucose, UA 2+ 125++ Bilirubin, UA Negative Ketones, UA Negative Spec Grav, UA 1.020 Blood, UA Positive(A) Negative, None Detected Comment:trace-lysed pH, UA 6.0 Protein, UA 3+ 500+++ Urobilinogen, UA 0.2 Leukocytes, UA Negative Negative, Rare, Trace Nitrite, UA Negative Negative, None Detected Appearance, UA clear QC Media Lot # [id number] Lot# Expiration Date ,203,565 Urine 01/27/2025 9:17 AM EDT [employer] [facility] POINT OF CARE TEST ENTER/EDIT ORDERABLES Final Result * (ABNORMAL) POCT HGB A1C (01/27/2025 9:16 AM EDT) Hemoglobin A1C 10.9(A) 4.0 - 6.0 % QC Media Lot # [id number] Lot# Expiration Date ,994,657 Blood 01/27/2025 9:16 AM EDT [employer] [facility] POINT OF CARE TEST ENTER/EDIT ORDERABLES Final Result * (ABNORMAL) POCT Glucose (01/27/2025 9:16 AM EDT) Glucose Blood, POC 385(A) 60 - 200 mg/dL QC Media Lot # [id number] Lot# Expiration Date 026,192 Blood Capillary blood specimen / Unknown 01/27/2025 9:16 AM EDT us Marilee Cordero [employer] OPERATOR POINT OF CARE TEST ENTER/EDIT ORDERABLES Final Result * (ABNORMAL) Albumin, Random Urine W/Creatinine (12/25/2023 9:50 AM EST) Creatinine, Urine 162.10 mg/dL [facility] Microalbumin Urine >2,000.0 mg/L [facility] Microalbum Creatinine Ratio Ur 1,233.8(H ) <30 ug/mg cr [facility] Comment:Albumin/Creatinine R atio Reference Ranges: Normal: < 30 ug/mg creatinine Microalbuminuria: 30 - 300 ug/mg creatinineClinical Albuminuria: > 300 ug/mg creatinine Urine 12/25/2023 9:50 AM EST 12/25/2023 2:38 PM EST Marilee Cordero [facility] URINE ORDERABLES Final Res ult [facility] [address] [place] [phone] * Hepatitis C Viral RNA, Quantitative, Real-Time PCR (09/13/2023 7:53 AM EST) Hepatitis C Viral Load <15 NOT DETECTED NOT DETECTED IU/mL [facility] HCV Log PCR <1.18 NOT DETECTED NOT DETECTED Log IU/mL [facility] Comment:This test was perfor med using Real-Time Polymerase ChainReaction.Reportable Range: 15 IU/mL to 100,000,000 IU/mL(1.18 Log IU/mL to 8.00 Log IU/mL).The analytical performance characteristics of thisassay have been determined by [employer].The modifications have not been cleared or approved bythe FDA. This assay has been validated pursuant to theCLIA regulations and is used for clinical purposes.For more information on this test, go to:http://education.TickPick/faq/ILM64p4(This link is being provided for informational/educational purposes only.)THIS TEST WAS PERFORMED AT:[facility] [place] [phone] MCINTOSH MD Blood 09/13/2023 7:53 AM EST 09/13/2023 7:53 AM EST Marilee Cordero [facility] BLOOD ORDERABLES Final Res ult Performing Organization Address [facility]/ZIP Co de Phone Number [facility] [address] [place] [phone] * HIV-1/2 Antigen and Antibodies, Fourth Generation, with Reflexes (09/13/2023 7:53 AM EST) Pathologist [facility] HIV AB/AG Nonreactive Nonreactive [facility] Comment:HIV-1 p24 Ag and/or HIV-1/HIV-2 Ab not detected.A test result that is nonreactive does not exclude thepossibility of exposure to or infection with HIV-1 and/orHIV-2. Nonreactive results in this assay for individualswith prior exposure to HIV-1 and/or HIV-2 may be due toantigen and antibody levels that are below the limit ofdetection of this assay.The [employer] ([employer] HIV Ag/Ab Combo assay result andsupplemental assay results should be interpreted inconjunction with the patient's clinical presentation,history and other laboratory results. If the results areinconsistent with clinical evidence, additional testing issuggested to confirm the result. Blood Venous blood specimen / Unknown 09/13/2023 7:53 AM EST 09/13/2023 7:53 AM EST Marilee Cordero [facility] BLOOD ORDERABLES Final Res ult Performing Organization Address [facility]/ZIP Co de Phone Number [facility] [address] [place] [phone] [phone] * (ABNORMAL) Lipid Panel, Standard (09/13/2023 7:53 AM EST) Triglycerides 122 <150 mg/dL [facility] Comment:Desirable Triglyceri de: less than 150 mg/dLBorderline High Triglyceride 150-199 mg/dLHigh Triglyceride: 200-499 mg/dLVery High Triglyceride: greater than or equal to 5OO mg/dL Cholesterol 149 <200 mg/dL [facility] Comment:Desirable Cholestero l: less than 200 mg/dLBorderline High Cholesterol: 200-239 mg/dLHigh Cholesterol: greater than 239 mg/dL LDL Cholesterol Calculated 97 <100 mg/dL [facility] Comment:Desirable LDL: less than 100 mg/dLNear Optimal/Above Optimal LDL: 110- 129 mg/dLBorderline High LDL: 130-159 mg/dLHigh LDL: 160-189 mg/dLVery High LDL: greater than or equal to 190 mg/dL HDL Cholesterol 28(L) >40 mg/dL [facility] Comment:Desirable HDL: great er than 40 mg/dL Note: This HDL assay may give artificially low results in patients with liver disease. Blood Venous blood specimen / Unknown 09/13/2023 7:53 AM EST 09/13/2023 7:53 AM EST us Marilee Cordero [facility] BLOOD ORDERABLES Final Res ult [facility] [address] [place] [address] [phone] from Last 3 Months or Most Recently Relevant to Health Maintenance Insurance [facility] DENT[facility] - HSN PARTIAL (MEDICAID) Care Teams Compressor Station Chief Engineer Relationship Specialty Start Date End Date Marilee Cordero FNP [address] [place] [address] PCP - General Family Medicine 03/23/23 Cristo Garcia MD [address] [place] [address] [place] [phone] Rheumatology 09/01/24 Doris Candelario [address] [place] [address] Cardiology 09/01/24 Yoselyn Lyons [address] [place] [phone] Ophthalmology 09/01/24 Balbir Don [address] [facility] [address] [place] [address] Sleep Medicine 09/01/[address] Dr. B[address]an [address] [place] [address] [address] [place] [address] Nephrology 09/01/24
--- OUTSIDE RECORDS SUMMARY | 2025-01-27 13:11 | XMS_ITS | Encounter Summary ---
Author Organization [employer] Address [address] [facility] [address] [place] [address] Care Team Providers Care Roving Machine Operator Name Role Phone Marilee Cordero PARAOPTOMETRIC Primary Care Provider [phone] Cristo Garcia MD Unavailable Doris Candelario Unavailable [phone] Yoselyn Lyons Unavailable Unavailable Balbir Don Unavailable Reason for Visit * Reason Onset Date Comments Chart Prep 01/23/2025 Encounter Details Date Type Department Care Team ([facility] st Contact Info) Description 01/23/2025 Telephone [facility] [address] [place], [place] [phone] Marilee Cordero FNP [address] [place], [place] [phone] Chart Prep Social History Tobacco Use Types Packs/Day Years Used Date Smoking Tobacco: Never Smokeless Tobacco: Never Alcohol Use Standard Drinks/Week Comments Never 0 (1 standard drink = 0.6 oz pur e alcohol) Depression Answer Date Recorded Patient Health Questionnaire-9 Score 10 09/01/2024 Patient Health Questionnaire-9 Score 10 09/01/2024 Last PHQ-9: Questionnaire Data Not on file 1 11/01/2023 Housing Stability Answer Date Recorded What is [...] Answer Date Recorded Patient Health Questionnaire-2 Score 2 09/01/2024 Internet Access Answer Date Recorded Internet Access Q1 Yes 08/30/2024 Internet Access Q2 Not on file 08/30/2024 Sex and Gender Information Value Date Recorded Sex Assigned at Male 08/29/2022 10:18 AM EDT Legal Sex Male 10:18 AM EDT Gender Identity Male 08/29/2022 10:18 AM EDT Sexual Orientation Don't know 08/29/2022 10 :18 AM EDT documented as of this encounter Miscellaneous Notes * Telephone Encounter - Barak Duncan [place] - 01/23/2025 2:11 PM EDT Chart Prep Labs: done Images: done Vaccines due: yes Referrals: complete Screenings: Foot Exam, Urine Protein Overdue care gaps: A1C, Glucose, Sbirt, SDOH, PHQ-9 documented in this encounter Plan of Treatment Upcoming Encounters Date Type Department Care Team ([facility] st Contact Info) Description 04/28/2025 9:00 AM EDT Office Visit [facility] [address] [place] [address] Marilee Cordero FNP [address] [place] [address] documented as of this encounter Visit Diagnoses Not on filedocumented in this encounter Additional Health Concerns Assessment Noted Time PHQ-9 Depression Total Score: 10 024 1:06 PM EST documented as of this encounter Care Teams Roving Machine Operator Relationship Specialty Start Date End Date Marilee Cordero FNP [address] [place] [address] PCP - General Family Medicine 03/23/23 Cristo Garcia MD [address] [place] [address] Rheumatology 09/01/24 Doris Candelario [address] [place] [address] Cardiology 09/01/24 Yoselyn Lyons [address] [place] [address] Ophthalmology 09/01/24 Balbir Don 22 [facility] [address] [place] [address] Sleep Medicine 09/01/24 Dr. Ramirez [address] [facility] [address] [place] [address] Nephrology 09/01/24 documented as of this encounter
--- OUTSIDE RECORDS SUMMARY | 2025-01-27 13:11 | XMS_ITS | Continuity of Care Document ---
Author Organization [facility] Address [address] [place] [address] Phone Care Team Providers Care Transportation Specialist Name Role Phone Unavailable Unavailable Unavailable Procedures Procedure Date Psychotherapy, 30 Minutes With Patient S Psych Dx Eval Psychotherapy, 30 Minutes With Patient A Advance Directives Directive Yes / No Effective Date File Name No Information Encounters Encounter Description Practice Location Reason(s) For Visit Diagnoses Date Provider Providers Copied on Encounter Psychotherap y, 30 Minutes With Patient [facility], [address] [place] [address], tel:[phone] [facility] Behavioral Health Individual Therapy (chief complaint) Cannabis use, unspecified, uncomplicatedC ocaine use, unspecified, uncomplicatedM ajor depressive disorder, recurrent, mildPost-traum atic stress disorder, unspecified Sep-0 8 No Information Psych Dx Eval [facility], [address] [place] [address], [facility], tel:[phone] [facility] Behavioral Health Initial Assessment (chief complaint) Major depressive disorder, recurrent, mildPost-traum atic stress disorder, unspecifiedCoc norman use, unspecified, uncomplicatedC annabis use, unspecified, uncomplicated May- 8 No Information Psychotherap y, 30 Minutes With Patient [facility], [address] [place] [address], tel:[phone] [facility] Behavioral Health depression (chief complaint) Major depressive disorder, recurrent, mildPost-traum atic stress disorder, unspecified May-2 8 No Information Family History Family Member Type Diagnosis Age At Onset No Information Payers Payer name Insurance type Covered democrat ID Authoriza tiluiz(s) BRII Alonso [id number] Social History Type Description Quantity Date Captured [...]
--- OUTSIDE RECORDS SUMMARY | 2025-01-27 13:11 | XMS_ITS | Encounter Summary ---
Author Organization [employer] [facility] Address [address] [place] [address] 7[address] [place] [address] Care Team Providers Care Blankbook Forwarder Name Role Phone Marilee Cordero Primary Care Provider [phone] Cristo Garcia MD Unavailable Doris Candelario Unavailable [phone] Yoselyn Lyons Unavailable Unavailable Balbir Don Unavailable Reason for Referral * Consultation (Routine) - Pending Review Specialty Diagnoses / Procedures Referred By Jovanny t Referred To Contact Cardiology Diagnoses Primary hypertension Congestive heart failure, unspecified HF chronicity, unspecified heart failure type (CMS/HCC) Mairlee Cordero FNP [address] [place] [address] Phone: tel: fax: [facility] Referral ID Status Reason Start Date Expiration Date Visits Requested Visits Authorized [id number] Pending Review Specialty Services Required 01/27/2025 01/27/2026 1 1 * Consultation (Routine) - Pending Review Specialty Diagnoses / Procedures Referred By Jovanny orr Referred To Contact Urology Diagnoses Hematuria, unspecified type Marilee Cordero FNP [address] [place] [address] Phone: tel: fax: Referral ID Status Reason Start Date Expiration Date Visits Requested Visits Authorized [id number] Pending Review Specialty Services Required 01/27/2025 01/27/2026 1 1 Encounter Details Date Type Department Care Team (Late st Contact Info) Description 01/27/2025 9:00 AM EDT Office Visit [facility] CHC MED & PEDS [address] [place] [address] Marilee Cordero FNP [address] [place] [address] Congestive heart failure, unspecified HF chronicity, unspecified heart failure type (CMS/HCC) (Primary Dx); Primary hypertension; Type 2 diabetes mellitus with hyperglycemia, with long-term current use of insulin (CMS/HCC); Routine health maintenance; Psoriatic arthritis (CMS/[facility]); Hematuria, unspecified type; Psoriasis Social History Tobacco Use Types Packs/Day Years [...] AM EDT documented as of this encounter Last Filed Vital Signs Vital Sign Reading [...] Mass Index 32.33 01/27/2025 8:58 AM EDT documented in this encounter Patient Instructions * Patient Instructions* BRANDEN Patel - 01/27/2025 9:00 AM EDT Last Nephrology (Kidney Doctor) Visit was March 2024 from our records. Please call to schedule a follow up visit. Seg??n nuestros registros, louis ??ltima consulta de nefrolog??a (m??dico especialista en ri??ones) fue en 2023. Por favor llame para programar garcia kimmie de seguimiento. [facility] [address] [place] [address] documented in this encounter Progress Notes * BRANDEN Patel - 01/27/2025 9:00 AM EDT Subjective: Joesph Saldana is a 54 y.o. male with a history of T2DM w/ peripheral neuropathy, diabetic foot ulcers, HTN, CHF, sleep apnea, psoriasis, and psoriatic arthritis who presents to the office with hiswife for a follow up visit - chronic conditions Interim History: Last PCP visit: 08/30/24 10/14/24: [facility] - Dr. Damian Zheng. F/up cardiomyopathy. Plan: start spironolactone 25mg daily. Cardiac MRI w/ and w/o contrast ordered. Cont Entresto BID, Jardiance 10mg daily, carvedilol 6.25mg BID,furosemide 40mg BID. May consider referral to heart failure team at [facility]. RTC 3 mo. HPI: Psoriatic arthritis-initiated Taltz injection following last appointment. Reports significant improvement in psoriasis patches. Continues following with Rheum. CHF-continues with dyspnea on exertion. Only able to walk less than 100 feet before starts to experience shortness of breath. Reviewed med updates from cards. Would be interested in seeing [facility] cardiology CHF team. Referred today. [id number] with med adherence metformin, Jardiance, and Lantus. Has not been checking blood sugars consistently, but reports recent FBG reading in the 140s. Has made changes in nutrition and portion sizes to decrease carb intake. A1c has improved from 12.7 last appointment to 10.9% today. Declines any med adjustments at this time, would prefer to continue with nutrition and lifestyle interven tions. Did discuss referral to CDTM. Patient declines today, but may consider in the future. Deniesany polydipsia, polyuria, or polyphasia. Hematuria-has noted blood in the urine over the past month. Trace blood on UA today. Will refer to urology for further eval. Social History Living: lives with Substance use: no tobacco Mental health: denies SI/HI/thoughts of self harm No Known Allergies Review of Systems Constitutional: Negative for activity change, appetite change and fever. Eyes: Negative for visual disturbance. Respiratory: Positive for shortness of breath. Negative for cough and wheezing. Cardiovascular: Negative for chest pain and palpitations. Gastrointestinal: Negative for constipation, diarrhea and vomiting. Endocrine: Negative for polyuria. Genitourinary: Positive for hematuria. Negative for decreased urine volume and difficulty urinating. Visit Vitals BP (!) 144/76 (BP Location: Right arm, Patient Position: Sitting, BP Cuff Size: Large adult) Pulse 68 Temp 97.8 ??F (36.6 ??C) (Oral) Resp 22 Ht 6' (1.829 m) Wt 238 lb 6 oz (108 kg) SpO2 93% BMI 32.33 kg/m?? Smoking Status Never BSA 2.34 m?? Physical Exam Vitals reviewed. Constitutional: Appearance: Normal appearance. HENT: Head: Atraumatic. Cardiovascular: Rate and Rhythm: Normal rate and regular rhythm. Pulmonary: Effort: Pulmonary effort is normal. Breath sounds: Normal breath sounds. Neurological: Mental Status: He is alert and oriented to person, place, and time. Psychiatric: Mood and Affect: Mood normal. Behavior: Behavior normal. Problem List Items Addressed This Visit Circulatory Hypertension Current Assessment & Plan -Reports home BP readings well controlled, f.up if above goal Relevant Orders Referral to Cardiology Congestive heart failure ([facility]) - Primary Overview [facility]: Nuclear stress test: Negative ECG portion of the stress test. Myocardial perfusion imaging is normal with no evidence or fixed or reversible perfusion defects. Moderately reduced global LV function??? with resting left ventricular EF of 33%, and post stress LVEF 36%. LV size moderately dilated. No evidence of transient ischemic dilation. March 2024: EF 35-40% Hospitalization for CHF exacerbation: Oct 2023 at [facility] - Reviewed condition and concerning signs/symptoms - Cont med regimen below: Aspirin 81mg daily Atorvastatin 40mg nightly Furosemide 40mg BID (RX nephrology) Jardiance 10mg daily Carvedilol 6.25mg BID Entresto 24-26mg BID Spironolactone 25mg daily Current Assessment & Plan Cont current therapy, symptomatic SOB/BELL Referral to [facility] for further eval Relevant Orders Referral to Cardiology Musculoskeletal Psoriatic arthritis ([facility]) Overview Followed by [facility] Rheum - Dr. Garcia Med therapy: DMARD, Taltz Previous tx: methotrexate and Enbrel (hx of failed Humira tx in Rheum note 02/04/21). Plan to hold methotrexate with hx cardiac conditions Endocrine/Metabolic Type 2 diabetes mellitus with hyperglycemia, with long-term current use of insulin ([facility]) Overview Lab Results Component Value Date HGBA1C 10.9 [...] 500mg BID Jardiance 10mg daily (rx through Computed Tomography Technologist) - Trulicity on hold at this time due to high cost. May consider SGLT2 as additional agent if needed -Denies red flag symptoms, ED precautions reviewed - Microalbumin: above normal limits, following with renal for proteinuria Current Assessment & Plan Declines adjustments in med regimen or CDTM referral today despite being above goal. Pt planning tomake nutrition and lifestyle interventions. Reviewed risks/concerns of persistent hyperglycemia. Relevant Orders POCT Glucose (Completed) POCT HGB A1C (Completed) POCT Urinalysis (Completed) Other Psoriasis Current Assessment & Plan -Previous tx with methotrexate and Enbrel (hx of failed Humira tx in Rheum note 02/04/21) -Re-established with [facility] Nov 2021, last consult appt December 2023 Plan to hold methotrexate with hx cardiac conditions Taltz injections through Rheum with notable improvement Routine health maintenance Overview Colon CA screening: no previous screening. Declines colonoscopy referral, but agrees to Cologuard. Order sent 08/11/23. Re-sent 08/30/24 Last PE: 08/11/23 Other Visit Diagnoses Hematuria, unspecified type - Hx BPH, gross hematuria x 1 month - Referral to Urology for further eval Relevant Orders Referral to Urology Follow up: 3 months, sooner PRN documented in this encounter Miscellaneous Notes * Assessment & Plan Note - BRANDEN Patel - 01/27/2025 9:50 AM EDTAssociated Problem(s): Congestive heart failure (CMS/HCC) Cont current therapy, symptomatic SOB/BELL Referral to [facility] for further eval * Assessment & Plan Note - BRANDEN Patel - 01/27/2025 9:46 AM EDTAssociated Problem(s): Psoriasis -Previous tx with methotrexate and Enbrel (hx of failed Humira tx in Rheum note 02/04/21) -Re-established with [facility] Rheum Nov 2021, last consult appt December 2023 Plan to hold methotrexate with hx cardiac conditions Taltz injections through Rheum with notable improvement * Assessment & Plan Note - BRANDEN Patel - 01/27/2025 9:45 AM EDTAssociated Problem(s): Type 2 diabetes mellitus with hyperglycemia, with long-term current use of insulin ([facility]) Declines adjustments in med regimen or CDTM referral today despite being above goal. Pt planning tomake nutrition and lifestyle interventions. Reviewed risks/concerns of persistent hyperglycemia. * Assessment & Plan Note - BRANDEN Patel - 01/27/2025 9:45 AM EDTAssociated Problem(s): Hypertension -Reports home BP readings well controlled, f.up if above goal * Addendum Note - Jeni Duncan MA - 01/27/2025 9:00 AM EDTAddended by: JENI NAIK on: 01/27/2025 10:23 AM Modules accepted: Orders documented in this encounter Plan of Treatment Upcoming Encounters Date Type Department Care Team (Late st Contact Info) Description 04/28/2025 9:00 AM EDT Office Visit [facility] MED & PEDS [address] [place] [address] Marilee Cordero, BRIGADIER [address] [place] [address] Scheduled Orders Name Type Priority Associated Diagnoses Orde r Schedule Urinalysis, Complete, with Reflex to Culture Lab Routine Type 2 diabetes mellitus with hyperglycemia, with long-term current use of insulin ([facility]) Expected: 01/27/2025 (Approximate), Expires: 01/27/2026 Scheduled Referrals Name Type Priority Associated Diagnoses Orde r Schedule Referral to Urology Outpatient Referral Routine Hematuria, unspecified type Expected: 01/27/2025 (Approximate), Expires: 01/27/2026 Referral to Cardiology Outpatient Referral Routine Primary hypertension Congestive heart failure, unspecified HF chronicity, unspecified heart failure type ([facility]) Expected: 01/27/2025 (Approximate), Expires: 01/27/2026 documented as of this encounter Procedures Procedure Name Priority Date/Time Associated Diagnosis Comments POCT URINALYSIS DIPSTICK Routine 01/27/2025 9:17 AM EDT Type 2 diabetes mellitus with hyperglycemia, with long-term current use of insulin ([facility]) POCT GLYCATED HEMOGLOBIN, TOTAL Routine 01/27/2025 9:16 AM EDT Type 2 diabetes mellitus with hyperglycemia, with long-term current use of insulin ([facility]) POCT GLUCOSE Routine 01/27/2025 9:16 AM EDT Type 2 diabetes mellitus with hyperglycemia, with long-term current use of insulin ([facility]) documented in this encounter Results * (ABNORMAL) POCT Urinalysis (01/27/2025 9:17 [...] Media Lot # [id number] Lot# Expiration Date Urine 01/27/2025 9:17 AM EDT us Marilee OTERO POINT OF CARE TEST ENTER/EDIT ORDERABLES Final Result * (ABNORMAL) POCT HGB A1C (01/27/2025 9:16 AM EDT) Hemoglobin A1C 10.9(A) 4.0 - 6.0 % QC Media Lot # [id number] Lot# Expiration Date ,026 Blood 01/27/2025 9:16 AM EDT us Marilee LISAP POINT OF CARE TEST ENTER/EDIT ORDERABLES Final Result * (ABNORMAL) POCT Glucose (01/27/2025 9:16 AM EDT) Glucose Blood, POC 385(A) 60 - 200 mg/dL QC Media Lot # [id number] Lot# Expiration Date 73, Blood Capillary blood specimen / Unknown 01/27/2025 9:16 AM EDT us Marilee Cordero [facility] POINT OF CARE TEST ENTER/EDIT ORDERABLES Final Result documented in this encounter Visit Diagnoses Diagnosis Congestive heart failure, unspecified HF chronicity, unspecified heart failure type ([facility])- Primary Primary hypertension Unspecified essential hypertension Type 2 diabetes mellitus with hyperglycemia, with long-term current use of insulin ([facility]) Routine health maintenance Unspecified examination Psoriatic arthritis ([facility]) Psoriatic arthropathy Hematuria, unspecified type Psoriasis Other psoriasis documented in this encounter Additional Health Concerns Assessment Noted Time PHQ-9 Depression Total Score: 13 025 8:59 AM EDT documented as of this encounter Care Teams Blankbook Forwarder Relationship Specialty Start Date End Date Marilee Cordero FNP [address] [place] [address] PCP - General Family Medicine 03/23/23 Cristo Garcia MD [address] [place] [address] Rheumatology 09/01/24 Doris Candelario [address] [place], [place] Cardiology 09/01/24 Yoselyn Lyons [address] [place] [address] Ophthalmology 09/01/24 Balbir Don 22 [facility] [address] [place] [address] Sleep Medicine 09/01/24 Dr. Ramirez 100 [facility] [address] [place] [address] Nephrology 09/01/24 documented as of this encounter
--- OUTSIDE RECORDS SUMMARY | 2025-01-27 13:11 | XMS_ITS | Clinical Summary ---
Author Organization [facility] Address [address] [facility] [address] [place] [address] Phone Care Team Providers Care X Ray Equipment Tester Name Role Phone Marilee Cordero BRANDEN Primary Care Provider [phone] Allergies No known active allergies Medications amLODIPine (NORVASC) 5 MG tablet Take 5 mg by mouth at bed time Active atorvastatin (LIPITOR) 40 MG tablet Take 40 mg by mouth 1 (one) time each day 07/24/2023 Active gabapentin (NEURONTIN) 100 MG capsule Take 100 mg by mouth 1 (one) time each day Active metFORMIN XR (GLUCOPHAGE-XR) 500 MG 24 hr tablet Take 500 mg by mouth in the morning and 500 mg in the evening. 06/28/2023 Active tamsulosin (FLOMAX) 0.4 MG 24 hr capsule Take 0.4 mg by mouth 1 (one) time each day 03/13/2023 Active aspirin (ST JESS) 81 MG EC tablet Take 81 mg by mouth every morning 07/24/2023 Active Lantus SoloStar 100 UNIT/ML injection Inject 10 Units under the skin at bed time 03/23/2023 Active Empagliflozin (Jardiance) 10 MG tablet Take 10 mg by mouth 1 (one) time each day in the morning 30 tablet 3 04/03/2024 04/03/20 25 Active furosemide (LASIX) 40 MG tablet Take 1 tablet (40 mg total) by mouth in the morning and 1 tablet (40 mg total) in the evening. Take 80 mg oral BID until swelling goes down, then continue 40 mg oral BID. 180 tablet 3 04/03/2024 04/03/20 25 Active Active Problems Problem Noted Date Diagnosed Date Congestive heart failure 11/26/2023 Overview (04/03/2024): ?? Following with [facility] ?? Jul 2023: Nuclear stress test: Negative ECG portion of the stress test. Myocardial perfusion imaging is normal with no evidence or fixed or reversible perfusion defects. Moderately reduced global LV function? with resting left ventricular EF of 33%, and post stress LVEF 36%. LV size moderately dilated. No evidence of transient ischemic dilation. ?? Hospitalization for CHF exacerbation: Oct 2023 at [facility] Last Assessment & Plan: - Reviewed condition and concerning signs/symptoms - Cont med regimen below: Aspirin 81mg daily Atorvastatin 40mg nightly Lisinopril-hydrochlorothiazide 20-25mg daily Furosemide 40mg BID Benign prostatic hyperplasia 02/26/2015 Overview (04/03/2024): ?? Continues with tamsulosin 0.4mg daily ?? Reports symptoms well controlled Hyperlipidemia 01/25/2013 Allergic rhinitis 08/14/2012 Asthma 08/14/2012 Gastroesophageal reflux disease 08/14/2012 Immunizations Name Administration Dates Next Due Hep A, 2 Dose 09/27/2005,03/24/2005 Hep B, Adolescent or Pediatric 09/27/2005,2004,03/24/2005 Influenza Split 07/09/2013,08/14/2012 Influenza, Quadrivalent, Preservative Free 08/11,10/17/2022,09/17/2019 Influenza, Quadrivalent, With Preservative 09/28 Moderna SARS-COV-2 01/14/2022,03/03/2021, 021 Pneumococcal Conjugate 13-Valent 06/28/2018 Pneumococcal Polysaccharide 09/30/2008 Shingrix 05/26/2022,03/25/2022 Td 05/26/2022,02/25/2005 Tdap 08/12/2014 Family History Medical History Relation Comments Heart failure Father Throat cancer Maternal Grandmother Diabetes Mother Cancer Sister Diabetes Sister Relation Status Comments Father Maternal Grandmother Mother Sister Social History Tobacco Use Types Packs/Day Years Used Date Smoking Tobacco: Never Smokeless Tobacco: Never Tobacco Cessation:Counseling Given: No Alcohol Use Standard Drinks/Week Comments Never 0 (1 standard drink = 0.6 oz pur e alcohol) Sex and Gender Information Value Date Recorded Sex Assigned at Not on file Legal Sex Male 3:07 PM EDT Gender Identity Not on file Sexual Orientation Not on file Last Filed Vital Signs Vital Sign Reading Time Taken Comments Blood Pressure 138/80 04/03/2024 2:03 PM EDT Pulse 69 04/03/2024 2:03 PM EDT Temperature - - Respiratory Rate - - Oxygen Saturation 95% 04/03/2024 2:03 PM EDT Inhaled Oxygen Concentration - - Weight 110 kg (243 lb) 04/03/2024 2:03 PM EDT Height - - Body Mass Index - - Plan of Treatment Health Maintenance Due Date Last Done Comments Hepatitis B Vaccine (1 of 3 - 19+ 3-dose series) 1989 09/27/2005, 05/31/2005, 03/24/2005 Pneumococcal Vaccine: Pediat rics (0 to 5 Years) and At-Risk Patients (6 to 64 Years) (3 of 3 - PPSV23 or PCV20) 08/23/2018 06/28/2018, 09/30/2008 Colorectal Cancer Screening: Annual FOBT 2019 Colorectal Cancer Screening: Colonoscopy 2019 Colorectal Cancer Screening: Sigmoidoscopy 2019 Diabetes: Ophthalmology Exam 01/10/2024 Diabetes: Pedal Pulse Checked 01/10/2024 Diabetes: Sensory Foot Exam 01/10/2024 Diabetes: Visual Foot Exam 01/10/2024 Diabetes: Hemoglobin A1C 11/30/2024 024, 02/26/2024, 11/24/2023 Influenza Vaccine Completed 08/30/2024, , 10/17/2022, Additional history exists Insurance [employer] [facility] ([id number]) [place] [address] PLAN ([id number]) Care Teams X Ray Equipment Tester Relationship Specialty Start Date End Date Marilee Cordero FNP [address] [place] [address] PCP - General 01/08/24
--- OUTSIDE RECORDS SUMMARY | 2025-01-27 13:11 | XMS_ITS | Encounter Summary ---
Author Organization [facility] Address [address] [place] [address] [address] [place] [address] Care Team Providers Care Human Relations Manager Name Role Phone Marilee Cordero Primary Care Provider [phone] Cristo Garcia MD Unavailable Doris Candelario Unavailable [phone] Yoselyn Lyons Unavailable Unavailable Balbir Don Unavailable Reason for Visit * Reason Comments Med Refill Encounter Details Date Type Department Care Team (Late st Contact Info) Description 07/23/2023 Refill [facility] MEDICINE [address] [place] [address] Donavan Mcgee AGNP Social History Tobacco Use Types Packs/Day Years Used Date Smoking Tobacco: Never Smokeless Tobacco: Never Alcohol Use Standard Drinks/Week Comments Never 0 (1 standard drink = 0.6 oz pur e alcohol) Depression Answer Date Recorded Patient Health Questionnaire-9 Score 1 10/17/2022 Depression Answer Date Recorded Patient Health Questionnaire-2 Score 0 10/17/2022 Sex and Gender Information Value Date Recorded Sex Assigned at Male 08/29/2022 10:18 AM EDT Legal Sex Male 10:18 AM EDT Gender Identity Male 08/29/2022 10:18 AM EDT Sexual Orientation Don't know 08/29/2022 10 :18 AM EDT documented as of this encounter Plan of Treatment Upcoming Encounters Date Type Department Care Team (Late Contact Info) Description 04/28/2025 9:00 AM EDT Office Visit [facility] CHC MED & PEDS [address] [place], [place] [id number] Marilee Cordero FNP [address] [place], [place] [phone] documented as of this encounter Visit Diagnoses Not on filedocumented in this encounter Additional Health Concerns Assessment Noted Time PHQ-9 Depression Total Score: 1 10/17/20 22 10:05 AM EST documented as of this encounter Care Teams Human Relations Manager Relationship Specialty Start Date End Date Marilee Cordero FNP [address] [place] [address] PCP - General Family Medicine 03/23/23 Cristo Garcia MD [address] [place] [address] [address] [place] [address] Rheumatology 09/01/24 Doris Candelario [address] [place] [address] Cardiology 09/01/24 Yoselyn Lyons [address] [place] [address] Ophthalmology 09/01/24 Balbir Don 22 [facility] [address] [place] [address] Sleep Medicine 09/01/24 Dr. Ramirez 100 [facility] [address] [place] [address] Nephrology 09/01/24 documented as of this encounter
--- OUTSIDE RECORDS SUMMARY | 2025-01-27 13:11 | XMS_ITS | Clinical Summary ---
Author Organization [facility] Address [address] [place] [address] Phone Care Team Providers Care Supervisor Bakery Sanitation Name Role Phone Christin Leslie COBBLER MCKAY Primary Care Provider [phone] Allergies No known active allergies Surgical History Surgery Date Site/Laterality Comments OTHER SURGICAL HISTORY 07/03/2002 PROCEDURE: HISTORY OTHER; COMMENT: nasal septal reconstruction with laser turbinectomy Medical History Medical History Date Comments HTN (hypertension) 06/04/2012 DX:HTN (hyper tension) DM2 (diabetes mellitus, type 2) ([facility]) 06/04/2012 DX:DM2 (diabetes mellitus, t ype 2) ([facility]) Obstructive sleep apnea 06/04/2012 DX:Obstr uctive sleep apnea Psoriatic arthritis ([facility]) 06/04/2012 DX :Psoriatic arthritis ([facility]) Hyperlipidemia 06/04/2012 DX:Hyperlipidemi a; COMMENT: IMO update Anxiety and depression 06/20/2017 DX:Anxiet y and depression Allergic rhinitis 06/20/2017 DX:Allergic rh initis GERD (gastroesophageal reflux disease) 06/20/2017 DX:GERD (gastroesophageal reflux disease) Asthma 06/20/2017 DX:Asthma BPH (benign prostatic hypertrophy) 06/20/2017 DX:BPH (benign prostatic hypertrophy) Transaminitis 06/20/2017 DX:Transaminitis Family History Medical History Relation Name Comments Heart attack Aunt fatal CABG Father DM Other cancer Grandparent site not specif ied Hypertension Mother Heart attack Other cousins with fa [place]'s 40's Asthma Sister Relation Name Status Comments Aunt Father Grandparent Mother Other Sister Social History Tobacco Use Types Packs/Day Years Used Date Smoking Tobacco: Never Smokeless Tobacco: Never Alcohol Use Standard Drinks/Week Comments Not Asked 0 (1 standard drink = 0.6 oz pur e alcohol) Sex and Gender Information Value Date Recorded Sex Assigned at Not on file Legal Sex Male 6:15 PM EST Gender Identity Not on file Sexual Orientation Not on file Obstetrics History Last Filed Vital Signs Vital Sign Reading Time Taken Comments Blood Pressure 118/69 09/02/2024 5:19 PM EST Pulse 65 09/02/2024 5:19 PM EST Temperature 36.8 ??C (98.2 ??F) 09/02/2024 5:19 PM ES T Respiratory Rate 18 09/02/2024 5:19 PM EST Oxygen Saturation 95% 09/02/2024 5:19 PM EST Inhaled Oxygen Concentration - - Weight 108 kg (238 lb) 09/02/2024 12:28 PM EST Height 182.9 cm (6') 09/02/2024 12:28 PM EST Body Mass Index 32.28 09/02/2024 12:28 PM EST Plan of Treatment Health Maintenance Due Date Last Done Comments Diabetes: Annual Foot Exam 1980 Diabetes: Annual Retina Eye Exam 1980 Hepatitis B Vaccines (1 of 3 - 19+ 3-dose series) 1989 09/27/2005, 05/31/2005, 03/24/2005 Colorectal Cancer Screening: Colonoscopy 10/12/2022 Diabetes: Annual Urine Albumin-Creatinine Ratio (uACR) 10/12/2022 Hepatitis C Screening 10/12/2022 Social Influencers of Health Screening 10/12/2022 Pneumococcal Vaccine: 50+ Years (3 of 3 - PCV20 or PCV21) 06/28/2023 06/28/2018, 09/30/2008 Pneumococcal Vaccine: Pediatrics (0 to 5 Years) and At-Risk Patients (6 to 64 Years) (3 of 3 - PCV20 or PCV21) 06/28/2023 06/28/2018, 09/30/2008 COVID-19 Vaccine ( season) 2024 01/14/2022, 03/03/2021, 02/03/2021 Diabetes: Blood Sugar Control Test (HGBA1C) 02/27/2025 08/30/2024 Depression Screening 09/01/2025 09/01/2024 Diabetes: Annual GFR (Glomerular Filtration Rate) 09/02/2025 09/02/2024 Hypertension/CHF/CAD Annual BMP Blood Test 09/02/2025 09/02/2024 Cholesterol Screening (Lipid Panel) 09/13/2028 09/13/2023 DTaP,Tdap,and Td Vaccines (4 - Td or Tdap) 05/26/2032 05/26/2022, 08/12/2014, 02/25/2005 Hepatitis A Vaccines Aged Out 09/27/2005, 03/24/20 05 No longer eligible based on patient's age to complete this topic Zoster Vaccines Completed 05/26/2022, 03/25/2022 HIV Screening Completed 09/13/2023 Influenza Vaccine Completed 08/30/2024, , 10/17/2022, Additional history exists HIB Vaccines Aged Out No longer eligi ble based on patient's age to complete this topic HPV Vaccines Aged Out No longer eligi ble based on patient's age to complete this topic IPV Vaccines Aged Out No longer eligi ble based on patient's age to complete this topic MMR Vaccines Aged Out No longer eligi ble based on patient's age to complete this topic Meningococcal ACWY Vaccine Aged Out N o longer eligible based on patient's age to complete this topic Meningococcal B Vacine Aged Out No lo nger eligible based on patient's age to complete this topic RSV Immunization Patients Under 20 months Aged Out No longer eligible based on patient's age to complete this topic Varicella Vaccines Aged Out No longer eligible based on patient's age to complete this topic Procedures Procedure Name Priority Date/Time Associated Diagnosis Comments COMPREHENSIVE METABOLIC PANEL STAT 09/02/2024 12:59 PM EST from Last 3 Months or Most Recently Relevant to Health Maintenance Results * (ABNORMAL) Comprehensive metabolic panel (09/02/2024 12:59 PM EST) Sodium 134 133 - 145 mmol/L LAB CHEMISTRY METHOD 09/02/2024 2:00 PM EST [facility] Potassium 4.9 3.5 - 5.5 mmol/L LAB CHEMISTRY METHOD 09/02/2024 2:00 PM EST [facility] Chloride 97 96 - 110 mmol/L LAB CHEMISTRY METHOD 09/02/2024 2:00 PM EST [facility] CO2 34(H) 21 - 32 mmol/L LAB CHEMISTRY METHOD 09/02/2024 2:00 PM [facility] Anion Gap 3 3 - 11 LAB CHEMISTRY METHOD 09/02/2024 2:00 PM [facility] Glucose 441(HH) 70 - 100 mg/dL LAB CHEMISTRY METHOD 09/02/2024 2:00 PM [facility] BUN 14 5 - 25 mg/dL LAB CHEMISTRY METHOD 09/02/2024 2:00 PM [facility] Creatinine 1.11 0.70 - 1.30 mg/dL LAB CHEMISTRY METHOD 09/02/2024 2:00 PM [facility] eGFR 79 >=60 mL/min/1. 73m2 LAB CHEMISTRY METHOD 09/02/2024 2:00 PM [facility] Comment:Calculation based on the??Chronic Kidney Disease Epidemiology Collaboration (CKD-EPI) equation refit??without adjustment for race. BUN/Creatinine Ratio 12.6 LAB CHEMISTRY METHOD 09/02/2024 2:00 PM [facility] Calcium 9.6 8.5 - 10.5 mg/dL LAB CHEMISTRY METHOD 09/02/2024 2:00 PM [facility] AST (SGOT) 16 10 - 42 unit/L LAB CHEMISTRY METHOD 09/02/2024 2:00 PM [facility] ALT (SGPT) 20 10 - 60 unit/L LAB CHEMISTRY METHOD 09/02/2024 2:00 PM [facility] Alkaline Phosphatase 144(H) 42 - 121 unit/L LAB CHEMISTRY METHOD 09/02/2024 2:00 PM [facility] Total Protein 7.0 6.0 - 8.0 g/dL LAB CHEMISTRY METHOD 09/02/2024 2:00 PM [facility] Albumin 3.6 3.2 - 5.0 g/dL LAB CHEMISTRY METHOD 09/02/2024 2:00 PM [facility] Total Bilirubin 1.0 0.0 - 1.4 mg/dL LAB CHEMISTRY METHOD 09/02/2024 2:00 PM EST [facility] Blood Venous blood specimen / Unknown Venipuncture / Unknown 09/02/2024 12:59 PM EST 09/02/2024 1:03 PM EST us Michael Xavier MD LAB BLOOD ORDERABLES Final Re sult [facility] [address] [place] [address], [place] [phone] from Last 3 Months or Most Recently Relevant to Health Maintenance Insurance [facility] PUBLIC [employer] Care Teams Supervisor Bakery Sanitation Relationship Specialty Start Date End Date Christin Leslie FNP PCP - General 07/29/11
--- OUTSIDE RECORDS SUMMARY | 2025-01-27 13:11 | XMS_ITS | Encounter Summary ---
Author Organization [employer] Address [address] [place] [address] Care Team Providers Care Blasting Entryman Name Role Phone Marilee Cordero Primary Care Provider Cristo Garcia MD Unavailable Doris Candelario Unavailable [phone] Yoselyn Lyons Unavailable Unavailable Balbir Don Unavailable Reason for Referral * Consultation (Routine) - Closed Specialty Diagnoses / Procedures Referred By Contzena t Referred To Contact Nephrology Diagnoses Albuminuria Marilee Cordero FNP [address] [place] [address] Phone: tel: fax: Bayron Marshall MD [address] [facility] [address] [place] [address] Phone: tel: fax: Referral ID Status Reason Start Date Expiration Date V isits Requested Visits Authorized [id number] Closed Specialty Services Required 12/29/2023 12/28/2024 1 1 Encounter Details Date Type Department Care Team (Late st Contact Info) Description 12/29/2023 Orders Only [facility] [address] [place], [place] [id number] Marilee Cordero FNP [address] [place], [place] [id number] Albuminuria (Primary Dx) Social History Tobacco Use Types Packs/Day Years Used Date Smoking Tobacco: Never Smokeless Tobacco: Never Alcohol Use Standard Drinks/Week Comments Never 0 (1 standard drink = 0.6 oz pur e alcohol) Depression Answer Date Recorded Patient Health Questionnaire-9 Score 1 10/17/2022 Housing Stability Answer Date Recorded What is your housing situation today? I have clayton sanchez 08/16/[address] you li ve. Do you have problems with any of the following? None of the above 08/16/2023 Food Insecurity Answer Date Recorded Within the past 12 months, y ou worried that your food would run out before you got money to buy more: Never True 08/16/2023 Within the past 12 months,th e food you bought just didn't last and you didn't have enough money to get more: Never True Transportation Answer Date Recorded In the past 12 months, has l ack of transportation kept you from medical appts, meetings, work or from getting things needed for daily living? No 08/16/2023 Utilities Answer Date Recorded In the past 12 months, has t he electric, gas, oil or water company threatened to shut off services in your home? No 08/16/2023 Depression Answer Date Recorded Patient Health Questionnaire-2 Score 0 10/17/2022 Sex and Gender Information Value Date Recorded Sex Assigned at Male 08/29/2022 10:18 AM EDT Legal Sex Male 10:18 AM EDT Gender Identity Male 08/29/2022 10:18 AM EDT Sexual Orientation Don't know 08/29/2022 10 :18 AM EDT documented as of this encounter Plan of Treatment Upcoming Encounters Date Type Department Care Team ([facility] Contact Info) Description 04/28/2025 9:00 AM EDT Office Visit [facility] MED & PEDS [address] [place] [address] Marilee Cordero FNP [address] [place] [address] documented as of this encounter Procedures Procedure Name Priority Date/Time Associated Diagnosis Comments AMB REFERRAL TO NEPHROLOGY Routine 04/03/2004 Albuminuria documented in this encounter Results * Referral to Nephrology (04/03/2004) us Marilee OTERO OUTPATIENT REFERRAL ORDERABLES Final Result documented in this encounter Visit Diagnoses Diagnosis Albuminuria- Primary Proteinuria documented in this encounter Additional Health Concerns Assessment Noted Time PHQ-9 Depression Total Score: 1 10/17/20 22 10:05 AM EST documented as of this encounter Care Teams Blasting Entryman Relationship Specialty Start Date End Date Marilee Cordero FNP [address] [place] [address] PCP - General Family Medicine 03/23/23 Cristo Garcia MD [address] [place] [address] [address] [place] [address] Rheumatology 09/01/24 Doris Candelario [address] [place] [address] Cardiology 09/01/24 Yoselyn Lyons [address] [place] [address] Ophthalmology 09/01/24 Balbir Don [address] [facility] [address] [place] [address] Sleep Medicine 09/01/24 Dr. Ramirez [address] [facility] [address] [place] [address] Nephrology 09/01/24 documented as of this encounter
[2025-01-27 15:12] LABS: Appearance Urine Clear; Color Urine Yellow; Glucose Urine UA >=1000 mg/dL (Negative); Leukocyte Esterase Urine Negative (Negative); Nitrite Urine Negative (Negative); UMIC TRIGGER UACC YES; Urine Blood Trace (Negative); Urine Ketones Negative (Negative); Urine Protein 300 (3+) mg/dL (Neg-Trace)
[2025-01-27 15:15] LABS: Bacteria Urine None Seen (None Seen); Hyaline Casts Urine 0-2 /LPF (0-2); RBC Urine 0-2 /HPF (0-2); Squamous Epithelial Cell Urine 0-2 /HPF (0-2); WBC Urine 0-5 /HPF (0-5)
== END 2025-01-27 11:31 | disposition home or self-care (01) ==
LOC: HO.CHCLNP 11:30
PROVIDERS: Visit Provider Registered Nurse
DX: E11.65 Type 2 diabetes mellitus with hyperglycemia (principal); Z79.4 Long term (current) use of insulin
CPT/HCPCS: 81001

== ENCOUNTER 2025-02-26 07:10 | Outpatient (REF) | payer OTHER, SELFPAY ==
--- OUTSIDE RECORDS SUMMARY | 2025-02-26 07:14 | XMS_ITS | Clinical Summary ---
Author Organization [facility] Address [address] [place] [phone] Phone Care Team Providers Care Fitness Teacher Name Role Phone Unavailable Primary Care Provider Unavailabl e Allergies No known active allergies Medications aspirin 81 mg EC tablet Take 1 tablet (81 mg total) by mouth 1 (one) time each day. 07/24/2023 Active atorvastatin (LIPITOR) 40 mg tablet Take 1 tablet (40 mg total) by mouth at bedtime. 02/09/2024 Active carvediloL (COREG) 6.25 mg tablet Take 1 tablet (6.25 mg total) by mouth 2 (two) times a day with meals. 05/21/2024 Active Jardiance 10 mg tablet Take 1 tablet (10 mg total) by mouth daily. 04/03/2024 Active furosemide (LASIX) 40 mg tablet 2 tablets (80 mg total) 2 (two) times a day. Active metFORMIN (GLUCOPHAGE) 500 mg tablet Take 1 tablet (500 mg total) by mouth 2 (two) times a day with meals. 05/01/2024 Active Entresto 24-26 mg per tablet Take 1 tablet by mouth 2 times daily. 06/11/2024 Active tamsulosin (FLOMAX) 0.4 mg 24 hr capsule Take 1 capsule (0.4 mg total) by mouth 1 (one) time each day with dinner. 03/13/2023 Active Active Problems Problem Noted Date Diagnosed Date Hypoxia 02/15/2025 Encounters Date Type Department Care Team Description 02/15/2025 12:00 PM EDT - 02/19/2025 5:05 PM EDT Hospital Encounter [facility] [address] [place] [address] Saavedra, TinDO Yasmin Chang Carlos M, MD Kokosadze, Estate, MD Rasul, Yar M, MD Edema, unspecified type (Primary Dx); Acute midline low back pain with right-sided sciatica; Proteinuria, unspecified type; Respiratory failure, unspecified chronicity, unspecified whether with hypoxia or hypercapnia ([facility] V24, [facility] V28); Acute pulmonary edema ([facility] V24, [facility] V28); Hypoxia Discharge Disposition: Home or Self Care from Last 3 Months Surgical History Surgery Date Site/Laterality Comments OTHER SURGICAL HISTORY 07/03/2002 PROCEDURE: HISTORY OTHER; COMMENT: nasal septal reconstruction with laser turbinectomy Medical History Medical History Date Comments HTN (hypertension) 06/04/2012 DX:HTN (hyper tension) DM2 (diabetes mellitus, type 2) ([facility] V24, [facility] V28) 06/04/2012 DX:DM2 (diabetes mellitus, t ype 2) ([facility]) Obstructive sleep apnea 06/04/2012 DX:Obstr uctive sleep apnea Psoriatic arthritis ([facility] V24, [facility] V28) 06/04/2012 DX:Psoriatic arthritis ([facility]) Hyperlipidemia 06/04/2012 DX:Hyperlipidemi a; COMMENT: IMO update [...] Heart attack Other cousins with fa charlotte ID's 40's Asthma Sister Relation Name Status Comments Aunt Father Grandparent Mother Other Sister Social History Tobacco Use Types Packs/Day Years Used Date Smoking Tobacco: Never Smokeless Tobacco: Never Alcohol Use Standard Drinks/Week Comments Not Asked 0 (1 standard drink = 0.6 oz pur e alcohol) Interpersonal Safety Answer Date Record ed Physical Abuse 02/15/2025 Verbal Abuse 02/15/2025 Sex and Gender Information Value Date Recorded Sex Assigned at Not on file Legal Sex Male 6:15 PM EST Gender Identity Not on file Sexual Orientation Not on file Obstetrics History Last Filed Vital Signs Vital Sign Reading Time Taken Comments Blood Pressure 131/62 02/19/2025 11:21 AM EDT Pulse 58 02/19/2025 11:21 AM EDT Temperature 36.3 ??C (97.4 ??F) 02/19/2025 11:21 AM E DT Respiratory Rate 16 02/19/2025 11:21 AM EDT Oxygen Saturation 92% 02/19/2025 11:21 AM EDT Inhaled Oxygen Concentration - - Weight 109 kg (241 lb) 02/19/2025 6:00 AM EDT Height 182.9 cm (6') 02/18/2025 8:10 AM EDT Body Mass Index 32.69 02/18/2025 8:10 AM EDT Plan of Treatment Health Maintenance Due Date Last Done Comments Diabetes: Annual Foot Exam 1980 Diabetes: Annual Retina Eye Exam 1980 Hepatitis B Vaccines (1 of 3 - 19+ 3-dose series) 1989 09/27/2005, 05/31/2005, 03/24/2005 Pneumococcal Vaccine: 50+ Years (3 of 3 - PPSV23, PCV20 or PCV21) 08/23/2018 06/28/2018, 09/30/2008 Pneumococcal Vaccine: Pediatrics (0 to 5 Years) and At-Risk Patients (6 to 64 Years) (3 of 3 - PPSV23, PCV20 or PCV21) 08/23/2018 06/28/2018, 09/30/2008 Colorectal Cancer Screening: Colonoscopy 10/12/2022 Diabetes: Annual Urine Albumin-Creatinine Ratio (uACR) 10/12/2022 Social Influencers of Health Screening 10/12/2022 COVID-19 Vaccine ( season) 2024 01/14/2022, 03/03/2021, 02/03/2021 Diabetes: Blood Sugar Control Test (HGBA1C) 07/29/2025 01/27/2025, 08/30/2024 Depression Screening 01/27/2026 01/27/2025 Diabetes: Annual GFR (Glomerular Filtration Rate) 02/19/2026 02/19/2025, 02/18/2025, 02/17/2025, Additional history exists Hypertension/CHF/CAD Annual BMP Blood Test 02/19/2026 02/19/2025, 02/18/2025, 02/17/2025, Additional history exists Cholesterol Screening (Lipid Panel) 09/13/2028 09/13/2023 DTaP,Tdap,and Td Vaccines (4 - Td or Tdap) 05/26/2032 05/26/2022, 08/12/2014, 02/25/2005 Hepatitis A Vaccines Aged Out 09/27/2005, 03/24/20 05 No longer eligible based on patient's age to complete this topic Zoster Vaccines Completed 05/26/2022, 03/25/2022 HIV Screening Completed 09/13/2023 Influenza Vaccine Completed 08/30/2024, , 10/17/2022, Additional history exists Hepatitis C Screening Completed 02/16/2025 HIB Vaccines Aged Out No longer eligi [...] age to complete this topic Meningococcal B Vaccine Aged Out No l onger eligible based on patient's age to complete this topic RSV Immunization Patients Under 20 months Aged Out No longer eligible based on patient's age to complete this topic Varicella Vaccines Aged Out No longer eligible based on patient's age to complete this topic Procedures Procedure Name Priority Date/Time Associated Diagnosis Comments ECG ANNOTATED 02/20/2025 POCT GLUCOSE BLOOD Routine 02/19/2025 3: 18 PM EDT POCT GLUCOSE BLOOD Routine 02/19/2025 11 :21 AM EDT OXYGEN THERAPY, ADULT Routine 02/19/2025 10:05 AM EDT POCT GLUCOSE BLOOD Routine 02/19/2025 8: 00 AM EDT CBC WITH AUTO DIFFERENTIAL Timed 02/19/2025 6:01 AM EDT BASIC METABOLIC PANEL Timed 02/19/2025 6:01 AM EDT CBC AND DIFFERENTIAL Timed 02/19/2025 6:01 AM EDT POCT GLUCOSE BLOOD Routine 02/18/2025 7: 38 PM EDT POCT GLUCOSE BLOOD Routine 02/18/2025 3: 23 PM EDT POCT GLUCOSE BLOOD Routine 02/18/2025 11 :18 AM EDT MRSA PCR Routine 02/18/2025 10:18 AM EDT TRANSTHORACIC ECHOCARDIOGRAM (TTE) COMPLETE W/ CONTRAST Routine 02/18/2025 8:38 AM EDT Edema, unspecified type POCT GLUCOSE BLOOD Routine 02/18/2025 7: 43 AM EDT BASIC METABOLIC PANEL Timed 02/18/2025 6:01 AM EDT CBC WITH AUTO DIFFERENTIAL Timed 02/18/2025 6:00 AM EDT CBC AND DIFFERENTIAL Timed 02/18/2025 6:[address] LOWER EXTREMITY W CONTRAST BILAT STAT 02/18/2025 1:05 AM EDT POCT GLUCOSE BLOOD Routine 02/17/2025 8: 25 PM EDT PROTHROMBIN TIME WITH INR Routine 02/17/2025 5:45 PM EDT HEMOGLOBIN AND HEMATOCRIT Routine 02/17/2025 5:45 PM EDT POCT GLUCOSE BLOOD Routine 02/17/2025 3: 26 PM EDT PROTEIN AND CREATININE WITH RATIO, URINE Routine 02/17/2025 12:45 PM EDT PROTEIN, URINE, RANDOM Routine 12:45 PM EDT YELLOW URINE NO ADDITIVE Routine 02/17/2025 12:42 PM EDT EXTRA TUBES Routine 02/17/2025 12:42 PM EDT POCT GLUCOSE BLOOD Routine 02/17/2025 11 :53 AM EDT HEPARIN ANTI XA Timed 02/17/2025 9:57 AM EDT B-TYPE NATRIURETIC PEPTIDE Routine 02/17/2025 9:56 AM EDT POCT GLUCOSE BLOOD Routine 02/17/2025 7: 42 AM EDT HEPARIN ANTI XA Timed 02/17/2025 4:07 AM EDT CBC WITH AUTO DIFFERENTIAL Routine 02/17/2025 4:07 AM EDT CBC AND DIFFERENTIAL Routine 02/17/2025 4:07 AM EDT BASIC METABOLIC PANEL Routine 02/17/2025 4:07 AM EDT HEPARIN ANTI XA Timed 02/17/2025 2:01 AM EDT HEPARIN ANTI XA Timed 02/16/2025 8:13 PM EDT POCT GLUCOSE BLOOD Routine 02/16/2025 7: 44 PM EDT POCT GLUCOSE BLOOD Routine 02/16/2025 3: 49 PM EDT KAPPA-LAMBDA QUANTITATIVE FREE LIGHT CHAINS Routine 02/16/2025 2:01 PM EDT MI PROTEIN ELECTROPHORETIC FRACTIONATION & QUANTITATION SERUM Routine 02/16/2025 2:00 PM EDT PROTEIN, TOTAL Routine 02/16/2025 2:00 PM EDT PROTEIN ELECTROPHORESIS, SERUM Routine 02/16/2025 2:00 PM EDT HEPATITIS C ANTIBODY Routine 02/16/2025 2:00 PM EDT HEPATITIS B SURFACE ANTIGEN WITH CONFIRMATION Routine 02/16/2025 2:00 PM EDT C4 COMPLEMENT Routine 02/16/2025 2:00 PM EDT C3 COMPLEMENT Routine 02/16/2025 2:00 PM EDT ANTI-NEUTROPHILIC CYTOPLASMIC ANTIBODY Routine 02/16/2025 2:00 PM EDT MR ANGIO ABDOMEN WO AND W CONTRAST Routine 02/16/2025 1:37 PM EDT POCT GLUCOSE BLOOD Routine 02/16/2025 12 :16 PM EDT HEPARIN ANTI XA Timed 02/16/2025 8:53 AM EDT POCT GLUCOSE BLOOD Routine 02/16/2025 8: 37 AM EDT CBC WITH AUTO DIFFERENTIAL Routine 02/16/2025 3:05 AM EDT COMPLETE BLOOD COUNT Timed 02/16/2025 3:05 AM EDT CBC AND DIFFERENTIAL Routine 02/16/2025 3:05 AM EDT MAGNESIUM Routine 02/16/2025 3:05 AM EDT BASIC METABOLIC PANEL Routine 02/16/2025 3:05 AM EDT HEPARIN ANTI XA Timed 02/16/2025 3:05 AM EDT POCT GLUCOSE BLOOD Routine 02/15/2025 9: 43 PM EDT HEPARIN ANTI XA STAT Add-on 02/15/2025 7:48 PM EDT ACTIVATED PARTIAL THROMBOPLASTIN TIME STAT Add-on 02/15/2025 7:48 PM EDT PROTHROMBIN TIME WITH INR STAT Add-on 02/15/2025 7:48 PM EDT D-DIMER Routine 02/15/2025 7:48 PM EDT POCT GLUCOSE BLOOD Routine 02/15/2025 5: [address] ANGIO CHEST/ABDOMEN/PELVIS WO AND/OR W CONTRAST STAT 02/15/2025 2:13 PM EDT Acute midline low back pain with right-sided sciatica POCT GLUCOSE BLOOD Routine 02/15/2025 2: 01 PM EDT XR CHEST 2 VIEWS STAT 02/15/2025 1:53 PM EDT XR LUMBAR SPINE 2-3 VIEWS STAT 02/15/2025 1:53 PM EDT VAS US DUPLEX LOWER EXT VENOUS RIGHT STAT 02/15/2025 1:39 PM EDT Edema, unspecified type LACTATE STAT 02/15/2025 1:00 PM EDT CULTURE BLOOD STAT 02/15/2025 12:59 PM EDT CULTURE BLOOD STAT 02/15/2025 12:59 PM EDT TROPONIN I HIGH SENSITIVITY STAT 02/15/2025 12:51 PM EDT ECG 12-LEAD STAT 02/15/2025 12:38 PM EDT MORENO URINE CULTURE TUBE STAT 02/15/2025 12:35 PM EDT URINALYSIS WITH REFLEX MICROSCOPIC AND CULTURE STAT 02/15/2025 12:35 PM EDT URINALYSIS WITH REFLEX MICROSCOPIC AND CULTURE STAT 02/15/2025 12:35 PM EDT RESPIRATORY VIRUS PANEL MOLECULAR STUDY STAT 02/15/2025 12:35 PM EDT CREATINE KINASE Add-On 02/15/2025 12:23 PM EDT HEPATIC FUNCTION PANEL STAT Add-on 12:23 PM EDT CBC WITH AUTO DIFFERENTIAL STAT 02/15/2025 12:23 PM EDT TROPONIN I HIGH SENSITIVITY STAT 02/15/2025 12:23 PM EDT MAGNESIUM STAT 02/15/2025 12:23 PM EDT BASIC METABOLIC PANEL STAT 02/15/2025 12:23 PM EDT CBC AND DIFFERENTIAL STAT 02/15/2025 12:23 PM EDT from Last 3 Months Results * ECG-Annotated (02/20/2025) us Provider Onbase MD ECG ORDERABLES Final Result * (ABNORMAL) POCT Glucose, blood (02/19/2025 3:18 PM EDT) Only the most recent of18 resultswithin the time period is included. [facility] Signature Glucose POCT 260(H) 70 - 100 mg/dL 02/19/2025 3:18 PM EDT [facility] ([facility]) [facility] Blood Capillary blood specimen / Unknown 02/19/2025 3:18 PM EDT 02/19/2025 3:19 PM EDT us Torres Sanchez MD LAB POINT OF CARE TE ST DOCKED DEVICE UNSOLICITED RESULTS Final Result [facility] [address] [place] [address], * (ABNORMAL) CBC auto differential (02/19/2025 6:01 AM EDT) Only the most recent of5 resultswithin the time period is included. WBC 8.8 4.8 - 10.8 K/mcL LAB HEMETOLOGY METHOD 02/19/2025 6:48 AM EDT [facility] RBC 4.00(L) 4.50 - 5.50 M/mcL LAB HEMETOLOGY METHOD 02/19/2025 6:48 AM EDT [facility] Hemoglobin 11.2(L) 13.5 - 17.5 g/dL LAB HEMETOLOGY METHOD 02/19/2025 6:48 AM EDT [facility] Hematocrit 34.1(L) 42.0 - 54.0 % LAB HEMETOLOGY METHOD 02/19/2025 6:48 AM EDT [facility] MCV 85.0 79.0 - 98.0 FL LAB HEMETOLOGY METHOD 02/19/2025 6:48 AM EDT [facility] MCH 27.9 27.0 - 32.0 pcg LAB HEMETOLOGY METHOD 02/19/2025 6:48 AM EDT [facility] MCHC 32.8 32.0 - 37.0 g/dL LAB HEMETOLOGY METHOD 02/19/2025 6:48 AM EDT [facility] RDW 12.8 11.0 - 15.0 % LAB HEMETOLOGY METHOD 02/19/2025 6:48 AM EDT [facility] Platelets 281 130 - 400 K/mcL LAB HEMETOLOGY METHOD 02/19/2025 6:48 AM EDT [facility] MPV 9.6 7.0 - 11.0 FL LAB HEMETOLOGY METHOD 02/19/2025 6:48 AM [facility] NRBC 0.0 <1.0 % LAB HEMETOLOGY METHOD 02/19/2025 6:48 AM [facility] NRBC Absolute 0.00 <0.10 K/mcL LAB HEMETOLOGY METHOD 02/19/2025 6:48 AM [facility] Neutrophils Relative 79.4 % LAB HEMETOLOGY METHOD 02/19/2025 6:48 AM [facility] Lymphocytes Relative 7.8 % LAB HEMETOLOGY METHOD 02/19/2025 6:48 AM [facility] Monocytes Relative 9.1 % LAB HEMETOLOGY METHOD 02/19/2025 6:48 AM [facility] Eosinophils Relative 2.9 % LAB HEMETOLOGY METHOD 02/19/2025 6:48 AM [facility] Basophils Relative 0.2 % LAB HEMETOLOGY METHOD 02/19/2025 6:48 AM [facility] Immature Granulocytes Relative 0.6 % LAB HEMETOLOGY METHOD 02/19/2025 6:48 AM [facility] Neutrophils Absolute 6.96 1.50 - 7.00 K/mcL LAB HEMETOLOGY METHOD 02/19/2025 6:48 AM [facility] Lymphocytes Absolute 0.68(L) 1.00 - 5.00 K/mcL LAB HEMETOLOGY METHOD 02/19/2025 6:48 AM [facility] Monocytes Absolute 0.80 0.20 - 1.00 K/mcL LAB HEMETOLOGY METHOD 02/19/2025 6:48 AM [facility] Eosinophils Absolute 0.25 0.00 - 0.50 K/mcL LAB HEMETOLOGY METHOD 02/19/2025 6:48 AM [facility] Basophils Absolute 0.02 0.00 - 0.20 K/mcL LAB HEMETOLOGY METHOD 02/19/2025 6:48 AM EDT [facility] Immature Granulocytes Absolute 0.05(H) 0.00 - 0.03 K/mcL LAB HEMETOLOGY METHOD 02/19/2025 6:48 AM EDT [facility] Blood Venous blood specimen / Unknown Venipuncture / Unknown 02/19/2025 6:01 AM EDT 02/19/2025 6:18 AM EDT us Torres Sanchez MD LAB BLOOD ORDERABLES Final Resul t [facility] [address] [place] [address], [place] [phone] * (ABNORMAL) Basic metabolic panel (02/19/2025 6:01 AM EDT) Only the most recent of5 resultswithin the time period is included. Sodium 136 133 - 145 mmol/L LAB CHEMISTRY METHOD 02/19/2025 7:13 AM [facility] Potassium 3.6 3.5 - 5.5 mmol/L LAB CHEMISTRY METHOD 02/19/2025 7:13 AM [facility] Chloride 98 96 - 110 mmol/L LAB CHEMISTRY METHOD 02/19/2025 7:13 AM [facility] CO2 35(H) 21 - 32 mmol/L LAB CHEMISTRY METHOD 02/19/2025 7:13 AM [facility] Anion Gap 3 3 - 11 LAB CHEMISTRY METHOD 02/19/2025 7:13 AM [facility] Glucose 258(H) 70 - 100 mg/dL LAB CHEMISTRY METHOD 02/19/2025 7:13 AM [facility] BUN 19 5 - 25 mg/dL LAB CHEMISTRY METHOD 02/19/2025 7:13 AM EDT [facility] Creatinine 1.08 0.70 - 1.30 mg/dL LAB CHEMISTRY METHOD 02/19/2025 7:13 AM EDT [facility] eGFR 82 >=60 mL/min/1. 73m2 LAB CHEMISTRY METHOD 02/19/2025 7:13 AM EDT [facility] Comment:Calculation based on the??Chronic Kidney Disease Epidemiology Collaboration (CKD-EPI) equation refit??without adjustment for race. BUN/Creatinine Ratio 17.6 LAB CHEMISTRY METHOD 02/19/2025 7:13 AM EDT [facility] Calcium 8.2(L) 8.5 - 10.5 mg/dL LAB CHEMISTRY METHOD 02/19/2025 7:13 AM EDT [facility] Blood Venous blood specimen / Unknown Venipuncture / Unknown 02/19/2025 6:01 AM EDT 02/19/2025 6:17 AM EDT us Torres Sanchez MD LAB BLOOD ORDERABLES Final Resul t Performing Organization Address City/[facility]/ZIP Co de Phone Number [facility] [address] [place] [address], [place] [phone] * (ABNORMAL) MRSA molecular study (02/18/2025 10:18 AM EDT) MRSA Screen PCR Detected (A) Not Detected LAB MICROBIOLOGY METHOD 02/18/2025 11:35 AM EDT [facility] Swab Both anterior nares / Unknown Non-blood Collection / Unknown 02/18/2025 10:18 AM EDT 02/18/2025 10:22 AM EDT us Torres Sanchez MD LAB MICROBIOLOGY - GENERAL ORDER HAN Final Result Performing Organization Address [facility]/ZIP Co de Phone Number [facility] [address] [place] [address], [place] [phone] * (ABNORMAL) TRANSTHORACIC ECHOCARDIOGRAM (TTE) COMPLETE W/ CONTRAST (02/18/2025 8:38 AM EDT) LV EDV (A2C) 218 mL CV PACS LV EDV (A4C) 202 mL CV PACS LV Diastolic Volume (BP) 210(A) 62 - 150 mL CV PACS LV ESV (A2C) 90 mL CV PACS LV ESV (A4C) 99 mL CV PACS LV Systolic Volume (BP) 95(A) 21 - 61 mL CV PACS IVSD 1.4(A) 0.6 - 1.0 cm CV PACS LVIDD 5.7 4.2 - 5.8 cm CV PACS LVIDS 4.7(A) 2.5 - 4.0 cm CV PACS LVOT Diameter 2.2 cm CV PACS LVPWD 1.4(A) 0.6 - 1.0 cm CV PACS MV E' Tissue Velocity Lateral 8 cm/s CV PACS MV E' Tissue Velocity Septal 6 cm/s CV PACS Ejection Fraction (A2C) 59 % CV PACS Ejection Fraction (A4C) 51 % CV PACS Ejection Fraction (BP) 55 % CV PACS LVOT Area 3.8 cm2 CV PACS Left Atrium Minor Boone 5.8 cm CV PACS Left Atrium Major Boone 6.3 cm CV PACS LA Area Sys (A2C) 25 cm2 CV PACS LA Area Sys (A4C) 30 cm2 CV PACS LA Volume (BP) 103 mL CV PACS RA Area 18.8 cm2 CV PACS RA 2D Volume 51 mL CV PACS Aortic Sinus Valsalva 3.5 cm CV PACS Ascending Aorta 3.6 cm CV PACS E Wave Deceleration Time 155 119 - 242 ms CV PACS MV Peak A Charles 0.41 m/s CV PACS MV Peak E Charles 0.79 m/s CV PACS RV Diastolic Basal Dimension 4.7(A) 2.5 - 4.1 cm CV PACS RV S' 13 cm/s CV PACS TAPSE 28 mm CV PACS TR Peak Velocity 2.95 m/s CV PACS TR Peak Gradient 35 mmHg CV PACS LV ESV Index (A4C) 43 mL/m2 CV PACS LV EDV Index (A4C) 87 mL/m2 CV PACS E/E' Ratio Septal 13 CV PACS E/E' Ratio Averaged 12 CV PACS Relative Wall Thickness ratio 0.49 CV PACS FS 18 % CV PACS LV Mass 2D 357 g CV PACS Ascending Aorta Index 1.56 cm/m2 CV PACS RA 2D Volume Index 22 mL/m2 CV PACS LVIDD Index 2.47 cm/m2 CV PACS LVIDS Index 2.03 cm/m2 CV PACS E/A Ratio 1.9 CV PACS E/E' Ratio Lateral 10 CV PACS LV Systolic Volume Index (BP) 41 mL/m2 CV PACS LV Diastolic Volume Index (BP) 91 mL/m2 CV PACS LA Volume Index (BP) 45 mL/m2 CV PACS LV Mass Index 2D 155 g/m2 CV PACS LV EDV Index (A2C) 94 mL/m2 CV PACS LV ESV Index (A2C) 39 mL/m2 CV PACS BSA 2.36 m2 CV PACS Right Ventricular Peak Systolic Pressure 43 mmHg CV PACS Est. RA Pressure 8 mmHg CV PACS GLS -13.7 % CV PACS GLS -13.6 % CV PACS GLS -20.0 % CV PACS GLS -15.8 % CV PACS Anatomical Region Laterality Modality Ultrasound Narrative 02/18/2025 10:19 AM EDT ?Left ventricle cavity size is normal. Left ventricle mild hypertrophy.No regional LV wall motion abnormalities noted.Left ventricular systolic function is low normal with an ejection fraction of 50-55%.Left??Ventricle: There is Grade II (moderate) diastolic dysfunction. Abnormal strain with relatively preserved strain pattern at apex. ?Left ventricle moderate concentric hypertrophy. ?Right ventricle cavity is mildly enlarged. Right ventricular systolic function is normal. ?Tricuspid??Valve: Estimated RA pressure is 8 mmHg. The RVSP is estimated at 43 mmHg. ?The left atrium is moderately dilated. ?No hemodynamically significant valve disease. ?Given the LVH, and relatively low voltage for the degree of hypertrophy and relative apical sparring on strain imaging would consider outpatient amyloid evaluation. Left Ventricle Left ventricle cavity size is normal. There is moderate concentric hypertrophy. Systolic function is low normal with an ejection fraction of 50-55%. There are no regional LV wall motion abnormalities. There is Grade II (moderate) diastolic dysfunction. Right Ventricle Right ventricle cavity is mildly dilated. Systolic function is normal. Left Atrium Left atrium cavity is moderately dilated. Right Atrium Right atrium cavity is normal. IVC/SVC Inferior vena cava is dilated. Mitral Valve The leaflets are mildly thickened. There is trace regurgitation. There is no evidence of mitral valve stenosis. Tricuspid Valve The leaflets exhibit normal excursion. There is trace regurgitation. There is no evidence of tricuspid valve stenosis. Estimated RA pressure is 8 mmHg. The RVSP is estimated at 43 mmHg. Aortic Valve The aortic valve is trileaflet. There is no regurgitation or stenosis. Pulmonic Valve Visualized portions of the pulmonic valve appear normal. There is no regurgitation or stenosis. Ascending Aorta The aorta appears normal in size. Pericardium Pericardium appears normal. There is no pericardial effusion. Study Details Overall the study quality was technically difficult. Definity contrast was given to enhance imaging. us Torres Sanchez MD CV ECHO PROCEDURES Final Result * CT Lower Extremity w Contrast bilat (02/18/2025 1:05 AM EDT) Anatomical Region Laterality Modality Lower Extremities Bilateral Computed Tomog gosia 02/18/2025 1:35 AM EDT Impressions 02/18/2025 1:35 AM EDT Impression: Subcutaneous edema throughout both lower extremities, right greater than left. No abscess, soft tissue gas or evidence of osteomyelitis. This document has been electronically signed by: Essence Balbuena MD on 02/18/2025 01:35:32 Narrative 02/18/2025 1:35 AM EDT INDICATION: Soft tissue infection suspected, lower leg, no prior imaging CT bilateral lower extremities with intravenous contrast Comparison: None Findings: Images were obtained from the knees through the feet. Partially visualized small bilateral suprapatellar effusions. Subcutaneous edema throughout both lower extremities, right greater than left. No abscess or soft tissue gas. No acute fracture or dislocation. No evidence of osteomyelitis. Vascular calcifications. Procedure Note Essence Balbuena MD - 02/18/2025 INDICATION: Soft tissue infection suspected, lower leg, no prior imaging CT bilateral lower extremities with intravenous contrast Comparison: None Findings: Images were obtained from the knees through the feet. Partially visualized small bilateral suprapatellar effusions. Subcutaneous edema throughout both lower extremities, right greater than left. No abscess or soft tissue gas. No acute fracture or dislocation. No evidence of osteomyelitis. Vascular calcifications. IMPRESSION: Impression: Subcutaneous edema throughout both lower extremities, right greater than left. No abscess, soft tissue gas or evidence of osteomyelitis. This document has been electronically signed by: Essence Balbuena MD on 02/18/2025 01:35:32 Torres Sanchez MD IMG CT PROCEDURES Final Result * (ABNORMAL) Hemoglobin and hematocrit (02/17/2025 5:45 PM EDT) Hemoglobin 12.1(L) 13.5 - 17.5 g/dL LAB HEMETOLOGY METHOD 02/17/2025 6:15 PM EDT [facility] Hematocrit 36.9(L) 42.0 - 54.0 % LAB HEMETOLOGY METHOD 02/17/2025 6:15 PM EDT [facility] Blood Venous blood specimen / Unknown Venipuncture / Unknown 02/17/2025 5:45 PM EDT 02/17/2025 5:56 PM EDT Torres Sanchez MD LAB BLOOD ORDERABLES Final Resul t [facility] [address] [place] [address], [place] [phone] * (ABNORMAL) Prothrombin time with INR (02/17/2025 5:45 PM EDT) Only the most recent of2 resultswithin the time period is included. Protime 16.7(H) 10.6 - 13.9 sec LAB COAGULATION METHOD 02/17/2025 6:05 PM EDT [facility] INR 1.3 LAB COAGULATION METHOD 02/17/2025 6:05 PM EDT [facility] Blood Venous blood specimen / Unknown Venipuncture / Unknown 02/17/2025 5:45 PM EDT 02/17/2025 5:56 PM EDT Torres Sanchez MD LAB BLOOD ORDERABLES Final Resul t [facility] [address] [place] [address], [place] [phone] * (ABNORMAL) Protein and creatinine with ratio, urine (02/17/2025 12:45 PM EDT) Protein, Urine 141 mg/dL LAB CHEMISTRY METHOD 02/18/2025 7:21 AM EDT [facility] Prot/Creat, Ur 6.41(H) <=0.20 mg/mg creat LAB CHEMISTRY METHOD 02/18/2025 7:21 AM EDT [facility] Creatinine, Urine 22.0 mg/dL LAB CHEMISTRY METHOD 02/18/2025 7:21 AM EDT [facility] Urine Urine specimen from urethra / Unknown Non-blood Collection / Unknown 02/17/2025 12:45 PM EDT 02/18/2025 7:02 AM EDT Ish David MD LAB URINE ORDERABLES Final Res ult Performing Organization Address City/[facility]/ZIP Co de Phone Number [facility] [address] [place] [address], [place] [phone] * Protein, urine, random (02/17/2025 12:45 PM EDT) Protein, Urine 144 mg/dL LAB CHEMISTRY METHOD 02/17/2025 2:48 PM EDT [facility] Urine Urine specimen obtained by clean catch procedure / Unknown Non-blood Collection / Unknown 02/17/2025 12:45 PM EDT 02/17/2025 1:36 PM EDT Felicia Morrell NP LAB URINE ORDERABLES Final Res ult Performing Organization Address City/[facility]/ZIP Co de Phone Number [facility] [address] [place] [address], [place] [phone] * Yellow urine no additive (02/17/2025 12:42 PM EDT) Extra Tube Hold for add-ons. 02/17/2025 3:01 PM EDT [facility] Comment:Auto resulted. Urine Urine specimen obtained by clean catch procedure / Unknown 02/17/2025 12:42 PM EDT 02/17/2025 1:38 PM EDT Torres Sanchez MD LAB URINE ORDERABLES Final Resul t Performing Organization Address [facility] Co de Phone Number [facility] [address] [place] [address], [place] [phone] * (ABNORMAL) Anti-Xa - Every 6 Hours (02/17/2025 9:57 AM EDT) Only the most recent of7 resultswithin the time period is included. Heparin Anti-Xa <0.04(L) 0.30 - 0.70 I Unit/mL LAB COAGULATION METHOD 02/17/2025 10:28 AM EDT [facility] Blood Venous blood specimen / Unknown Venipuncture / Unknown 02/17/2025 9:57 AM EDT 02/17/2025 10:04 AM EDT Narrative [facility] - 02/17/2025 10:28 AM EDT Therapeutic range listed is for Unfractionated Heparin. LMW Heparin therapeutic range: 0.50-1.20 IU/mL Elizabeth Lora MD LAB BLOOD ORDERABLES Final R esult Performing Organization Address [facility]/ZIP Co de Phone Number [facility] [address] [place] [address], [place] [phone] * (ABNORMAL) B-type natriuretic peptide (02/17/2025 9:56 AM EDT) BNP 656(H) <=100 pcg/mL LAB CHEMISTRY METHOD 02/17/2025 10:42 AM EDT [facility] Blood Venous blood specimen / Unknown Venipuncture / Unknown 02/17/2025 9:56 AM EDT 02/17/2025 10:04 AM EDT us Torres Sanchez MD LAB BLOOD ORDERABLES Final Resul t [facility] [address] [place] [address], [place] [phone] * (ABNORMAL) [place]-lambda free light chains, quantitative (02/16/2025 2:01 PM EDT) Pathologist [facility] [place] Free Light Chain 6.10(H) 0.33 - 1.94 mg/dL 02/19/2025 10:46 AM EDT [facility] Lambda Free Light Chain 3.64(H) 0.57 - 2.63 mg/dL 02/19/2025 10:46 AM EDT [facility] [place]/Lambda FLC Ratio 1.68(H) 0.26 - 1.65 02/19/2025 10:46 AM EDT [facility] Comment: Test performed at [facility], [address] , [place], [place] ??[address] ? [phone] Sarah Gregg MD, PhD - [employer] Blood Venous blood specimen / Unknown Venipuncture / Unknown 02/16/2025 2:01 PM EDT 02/16/2025 2:05 PM EDT us Ish David MD LAB BLOOD ORDERABLES Final Res ult [facility] [address] [place] [address] * Hepatitis C antibody (02/16/2025 2:00 PM EDT) Hepatitis C Antibody Negative Negative LAB CHEMISTRY METHOD 02/16/2025 5:37 PM EDT [facility] Blood Venous blood specimen / Unknown Venipuncture / Unknown 02/16/2025 2:00 PM EDT 02/16/2025 2:05 PM EDT Ish David MD LAB BLOOD ORDERABLES Final Res ult Performing Organization Address [facility]/ZIP Co de Phone Number [facility] [address] [place] [address], [place] [phone] * Hepatitis B surface antigen with reflex to confirmation (02/16/2025 2:00 PM EDT) Pathologist [facility] Hepatitis B Surface Ag Negative Negative LAB CHEMISTRY METHOD 02/16/2025 5:34 PM EDT [facility] Blood Venous blood specimen / Unknown Venipuncture / Unknown 02/16/2025 2:00 PM EDT 02/16/2025 2:05 PM EDT Narrative [facility] - 02/16/2025 5:34 PM EDT Over the counter supplements containing high doses of biotin may interfere with this assay. ??If interference is suspected, patients shoud be retested after refraining from biotin supplements for 72 hours. us Ish David MD LAB BLOOD ORDERABLES Final Res ult [facility] [address] [place] [address], [place] [phone] * PATHOLOGIST REVIEW PROTEIN ELECTROPHORESIS (02/16/2025 2:00 PM EDT) Pathologist Interpretation 02/18/2025 5:34 PM EDT [facility] Blood Venous blood specimen / Unknown Venipuncture / Unknown 02/16/2025 2:00 PM EDT 02/16/2025 2:05 PM EDT us Ish David MD LAB BLOOD ORDERABLES Final Res ult Performing Organization Address [facility] de Phone Number [facility] [address] [place] [address], [place] [phone] * Anti-neutrophilic cytoplasmic antibody (02/16/2025 2:00 PM EDT) Pathologist [facility] Myeloperoxidase Ab Negative Negative LAB CHEMISTRY METHOD 02/19/2025 12:50 PM EDT [facility] Myeloperoxidase Ab, Quant 2 <=20 units LAB CHEMISTRY METHOD 02/19/2025 12:50 PM EDT [facility] Proteinase-3 Ab Negative Negative LAB CHEMISTRY METHOD 02/19/2025 12:50 PM EDT [facility] Proteinase-3 Ab Quant 3 <=20 units LAB CHEMISTRY METHOD 02/19/2025 12:50 PM EDT [facility] Blood Venous blood specimen / Unknown Venipuncture / Unknown 02/16/2025 2:00 PM EDT 02/16/2025 2:05 PM EDT us Ish David MD LAB BLOOD ORDERABLES Final Res ult Performing Organization Address [facility]/ZIP Co de Phone Number [facility] [address] [place] [address], [place] [phone] * C3 complement (02/16/2025 2:00 PM EDT) C3 Complement 158 88 - 201 mg/dL LAB CHEMISTRY METHOD 02/16/2025 2:36 PM EDT [facility] Blood Venous blood specimen / Unknown Venipuncture / Unknown 02/16/2025 2:00 PM EDT 02/16/2025 2:05 PM EDT sIh David MD LAB BLOOD ORDERABLES Final Res ult Performing Organization Address [facility]/ZIP Co de Phone Number [facility] [address] [place] [address], [place] [phone] * C4 complement (02/16/2025 2:00 PM EDT) [facility] C4 Complement 28 16 - 47 mg/dL LAB CHEMISTRY METHOD 02/16/2025 2:36 PM EDT [facility] Blood Venous blood specimen / Unknown Venipuncture / Unknown 02/16/2025 2:00 PM EDT 02/16/2025 2:05 PM EDT Ish David MD LAB BLOOD ORDERABLES Final Res ult Performing Organization Address [facility]/ZIP Co de Phone Number [facility] [address] [place] [address], [place] [phone] * (ABNORMAL) Protein electrophoresis, serum (02/16/2025 2:00 PM EDT) [facility] Total Protein 5.8(L) 6.0 - 8.0 g/dL LAB CHEMISTRY METHOD 02/18/2025 5:34 PM EDT [facility] Albumin, Serum 2.4(L) 2.9 - 4.1 g/dL LAB CHEMISTRY METHOD 02/18/2025 5:34 PM EDT [facility] Alpha 1 Globulin (g/dL) 0.5 0.1 - 0.5 g/dL LAB CHEMISTRY METHOD 02/18/2025 5:34 PM EDT [facility] Alpha 2 Globulin (g/dL) 1.1 0.7 - 1.5 g/dL LAB CHEMISTRY METHOD 02/18/2025 5:34 PM EDT [facility] Beta (g/dL) 1.0 0.7 - 1.5 g/dL LAB CHEMISTRY METHOD 02/18/2025 5:34 PM EDT [facility] Gamma Globulin (g/dL) 0.7 0.7 - 1.9 g/dL LAB CHEMISTRY METHOD 02/18/2025 5:34 PM EDT [facility] SPEP Interpretation No M-Abdiaziz seen. Hypoalbuminem ia, suggestive of malnutrition, decreased hepatic synthesis or renal/GI loss ? LAB CHEMISTRY METHOD 02/18/2025 5:34 PM EDT [facility] Blood Venous blood specimen / Unknown Venipuncture / Unknown 02/16/2025 2:00 PM EDT 02/16/2025 2:05 PM EDT us Ish David MD LAB BLOOD ORDERABLES Final Res ult Performing Organization Address [facility]/ZIP Co de Phone Number [facility] [address] [place] [address], [place] [phone] * (ABNORMAL) Protein, total (02/16/2025 2:00 PM EDT) Total Protein 5.8(L) 6.0 - 8.0 g/dL LAB CHEMISTRY METHOD 02/16/2025 2:37 PM EDT [facility] Blood Venous blood specimen / Unknown Venipuncture / Unknown 02/16/2025 2:00 PM EDT 02/16/2025 2:05 PM EDT us Ish David MD LAB BLOOD ORDERABLES Final Res ult [facility] [address] [place] [address], [place] [phone] * MR Angio Abdomen wo and w Contrast (02/16/2025 1:37 PM EDT) Anatomical Region Laterality Modality Abdomen, Body Magnetic Resonan ce 02/16/2025 3:27 PM EDT Impressions 02/16/2025 3:27 PM EDT Impression: No vascular pathology. No renal artery thrombus. This document has been electronically signed by: Poppy Felix MD on 02/16/2025 15:27:47 Narrative 02/16/2025 3:27 PM EDT INDICATION: pain. concern R renal thrombosis. MR angio abdomen with and without contrast Comparison: None Findings: No filling defect, aneurysm, significant stenosis or occlusion. Attention to the renal artery; patent vessels. Unremarkable gallbladder. No intrahepatic or extrahepatic biliary ductal dilatation. Hepatomegaly, measuring 21.6 cm in craniocaudal dimension. Splenomegaly, measuring 14.1 cm in craniocaudal dimension. No hydronephrosis. There is bilateral perinephric stranding, nonspecific. Unremarkable limited evaluation of the bowel. Procedure Note Poppy Driver MD - 02/16/2025 INDICATION: pain. concern R renal thrombosis. MR angio abdomen with and without contrast Comparison: None Findings: No filling defect, aneurysm, significant stenosis or occlusion.Attention to the renal artery; patent vessels. Unremarkable gallbladder. No intrahepatic or extrahepatic biliary ductal dilatation. Hepatomegaly, measuring 21.6 cm in craniocaudal dimension. Splenomegaly, measuring 14.1 cm in craniocaudal dimension. No hydronephrosis. There is bilateral perinephric stranding, nonspecific. Unremarkable limited evaluation of the bowel. IMPRESSION: Impression: No vascular pathology. No renal artery thrombus. This document has been electronically signed by: Poppy Felix MD on 02/16/2025 15:27:47 [facility] [place] PROCEDURES Final Res ult * (ABNORMAL) CBC - Every 3 Days (02/16/2025 3:05 AM EDT) WBC 12.3(H) 4.8 - 10.8 K/mcL LAB HEMETOLOGY METHOD 02/16/2025 3:15 AM EDT [facility] RBC 3.80(L) 4.50 - 5.50 M/mcL LAB HEMETOLOGY METHOD 02/16/2025 3:15 AM EDT [facility] Hemoglobin 11.0(L) 13.5 - 17.5 g/dL LAB HEMETOLOGY METHOD 02/16/2025 3:15 AM EDT [facility] Hematocrit 32.3(L) 42.0 - 54.0 % LAB HEMETOLOGY METHOD 02/16/2025 3:15 AM EDT [facility] MCV 84.1 79.0 - 98.0 FL LAB HEMETOLOGY METHOD 02/16/2025 3:15 AM EDT [facility] MCH 28.6 27.0 - 32.0 pcg LAB HEMETOLOGY METHOD 02/16/2025 3:15 AM EDT [facility] MCHC 34.1 32.0 - 37.0 g/dL LAB HEMETOLOGY METHOD 02/16/2025 3:15 AM T [facility] RDW 12.8 11.0 - 15.0 % LAB HEMETOLOGY METHOD 02/16/2025 3:15 AM EDT [facility] Platelets 239 130 - 400 K/mcL LAB HEMETOLOGY METHOD 02/16/2025 3:15 AM EDT [facility] MPV 9.6 7.0 - 11.0 FL LAB HEMETOLOGY METHOD 02/16/2025 3:15 AM EDT [facility] NRBC 0.0 <1.0 % LAB HEMETOLOGY METHOD 02/16/2025 3:15 AM EDT [facility] NRBC Absolute 0.00 <0.10 K/mcL LAB HEMETOLOGY METHOD 02/16/2025 3:15 AM EDT [facility] Blood Venous blood specimen / Unknown Venipuncture / Unknown 02/16/2025 3:05 AM EDT 02/16/2025 3:11 AM EDT us Sunitha DORSEY LAB BLOOD ORDERABLES Final Resul t [facility] [address] [place] [address], [place] [phone] * Magnesium (02/16/2025 3:05 AM EDT) Only the most recent of2 resultswithin the time period is included. Pathologist [facility] Magnesium 2.2 1.9 - 2.6 mg/dL LAB CHEMISTRY METHOD 02/16/2025 3:46 AM EDT [facility] Blood Venous blood specimen / Unknown Venipuncture / Unknown 02/16/2025 3:05 AM EDT 02/16/2025 3:11 AM EDT Neo Hoffman MD LAB BLOOD ORDERABLES Final Re sult [facility] [address] [place] [address], * Activated Partial Thromboplastin Time - STAT (02/15/2025 7:48 PM EDT) [facility] aPTT 30.4 24.1 - 39.3 sec LAB COAGULATION METHOD 02/15/2025 9:32 PM EDT [facility] Blood Venous blood specimen / Unknown Venipuncture / Unknown 02/15/2025 7:48 PM EDT 02/15/2025 8:05 PM EDT Sunitha DORSEY LAB BLOOD ORDERABLES Final Resul t [facility] [address] [place] [address], * (ABNORMAL) D-Dimer (02/15/2025 7:48 PM EDT) [facility] D-Dimer, Quant (D-DU) 525(H) <=230 ng/mL DDU LAB COAGULATION METHOD 02/15/2025 8:23 PM EDT [facility] Blood Venous blood specimen / Unknown Venipuncture / Unknown 02/15/2025 7:48 PM EDT 02/15/2025 8:05 PM EDT Narrative [facility] - 02/15/2025 8:23 PM EDT D-Dimer <230 ng/mL (D-Dimer units) is the threshold for exclusion of DVT/PE. D-Dimer may be elevated in: Critically ill, severely infected, trauma patients, DIC, acute CVA, acute ID, unstable angina, AF, old age, , and smoking. D-Dimer may be decreased with: Initiation of heparin therapy and oral anticoagulants. us Felicia Morrell ENV[employer]ONMENTAL CONFLICT MANAGER LAB BLOOD ORDERABLES Final Res ult [facility] [address] [place] [address], [place] [phone] * CT Angio Chest/Abdomen/Pelvis wo and/or w Contrast (02/15/2025 2:13 PM EDT) Anatomical Region Laterality Modality Body Computed Tomogra phy 02/15/2025 2:47 PM EDT Impressions 02/15/2025 3:01 PM EDT Impression: 1. No evidence of aortic aneurysm or dissection. 2. No evidence of pulmonary thromboembolism to the segmental level. 3. Congestive heart failure with small bilateral pleural effusions and mild interstitial alveolar pulmonary edema. 4. Trace ascites. 5. Mild splenomegaly. 6. Mild mediastinal, pelvic retroperitoneal and bilateral inguinal lymphadenopathy, nonspecific. Telerad WILLIAN ([id number]) -------- FINAL REPORT -------- Dictated By: Parris Gardner Dictated Date: 02/15/2025 14:47 ET Assigned Physician: Parris Gardner Reviewed and Electronically Signed By: Parris Gardner Signed Date: 02/15/2025 15:01 ET Workstation ID: [id number] Transcribed By: Self Edit Transcribed Date: 02/15/2025 14:47 ET Narrative 02/15/2025 3:01 PM EDT History: Acute midline abdominal pain. Low back pain. Clinical concern for aortic dissection. Comparison: Thoracic CTA 11/10/23 Technique: Helical volumetric imaging of the chest, abdomen, and pelvis was performed during the rapid, uneventful intravenous administration of 90 cc's Isovue-370, using the CT angiography protocol tailored for evaluation of the aorta. Coronal and sagittal reformatted images and maximum intensity pixel images were reviewed. Precontrast images through the thorax were obtained. DLP: 2436.00 mGy/cm [employer] VCT Iterative reconstruction technique Findings: Precontrast images through the thorax show no evidence of an acute mediastinal hematoma. The aorta is normal in caliber throughout its course, with minimal mural calcification noted at the level of the arch and at the bifurcation. No aortic dissection is identified. A four-vessel aortic arch branching pattern is demonstrated, with the left vertebral artery representing the additional vessel, an anatomic variant. The celiac, superior mesenteric and inferior mesenteric arteries are widely patent. The bilateral renal arteries are widely patent. The central pulmonary arteries are well-opacified to the segmental level. No intraluminal filling defects are seen to suggest pulmonary thromboembolism. Moderate cardiomegaly is seen. Ancillary findings: Chest: Small bilateral pleural effusions layer dependently. There are borderline enlarged mediastinal and right hilar lymph nodes, not a significant change from the previous study. The trachea and central bronchial tree are patent. Smooth bronchial wall thickening is noted bilaterally. There is smooth intralobular septal thickening bilaterally and confluent areas of groundglass opacity are present in both lungs. A 3 mm solid, noncalcified juxtapleural nodule in the right upper lobe is unchanged (image 103 series 5). A similar 4 mm juxtapleural nodule is present in the right lower lobe (image 107), not seen previously but potentially obscured by dependent atelectasis on that study. No specific follow-up is recommended in the low-risk setting. Calcified nodules in both lungs are consistent with old granulomatous disease. Abdomen/pelvis: The liver is normal in size and configuration. No masses are identified. There is mild splenomegaly, the spleen approximately 15 cm in maximum diameter. The pancreas and adrenal glands are unremarkable. The kidneys are normal in position and size, with symmetric, intact nephrograms and no evidence of hydronephrosis. No suspicious solid renal mass is seen. A trace amount of ascites is present the prostate, seminal vesicles and urinary bladder are unremarkable. No evidence of bowel obstruction is seen. The appendix is normal in caliber in the right lower quadrant. No abnormal perienteric or pericolonic fat stranding is seen. A mildly enlarged right external iliac lymph node measures 12 mm short axis and there is mild bilateral inguinal lymphadenopathy. There are small, subcentimeter periaortic and common iliac lymph nodes. No mesenteric lymphadenopathy is seen.. Musculoskeletal: No significant osseous abnormality is seen. Procedure Note Parris Gardner MD - 02/15/2025 History: Acute midline abdominal pain. Low back pain. Clinical concern foraortic dissection. Comparison: Thoracic CTA 11/10/23 Technique: Helical volumetric imaging of the chest, abdomen, and pelviswas performed during the rapid, uneventful intravenous administration of90 cc's Isovue-370, using the CT angiography protocol tailored forevaluation of the aorta. Coronal and sagittal reformatted images andmaximum intensity pixel images were reviewed. Precontrast images throughthe thorax were obtained. DLP: 2436.00 mGy/cm [employer] VCT Iterative reconstruction technique Findings: Precontrast images through the thorax show no evidence of an acutemediastinal hematoma. The aorta is normal in caliber throughout its course, with minimal muralcalcification noted at the level of the arch and at the bifurcation. Noaortic dissection is identified. A four-vessel aortic arch branching pattern is demonstrated, with the leftvertebral artery representing the additional vessel, an anatomic variant.The celiac, superior mesenteric and inferior mesenteric arteries arewidely patent. The bilateral renal arteries are widely patent. The central pulmonary arteries are well-opacified to the segmental level.No intraluminal filling defects are seen to suggest pulmonarythromboembolism. Moderate cardiomegaly is seen. Ancillary findings: Chest: Small bilateral pleural effusions layer dependently. There are borderlineenlarged mediastinal and right hilar lymph nodes, not a significant changefrom the previous study. The trachea and central bronchial tree are patent. Smooth bronchial wallthickening is noted bilaterally. There is smooth intralobular septalthickening bilaterally and confluent areas of groundglass opacity arepresent in both lungs. A 3 mm solid, noncalcified juxtapleural nodule in the right upper lobe isunchanged (image 103 series 5). A similar 4 mm juxtapleural nodule ispresent in the right lower lobe (image 107), not seen previously butpotentially obscured by dependent atelectasis on that study. No specificfollow-up is recommended in the low-risk setting. Calcified nodules inboth lungs are consistent with old granulomatous disease. Abdomen/pelvis: The liver is normal in size and configuration. No masses are identified.There is mild splenomegaly, the spleen approximately 15 cm in maximumdiameter. The pancreas and adrenal glands are unremarkable. The kidneys are normal in position and size, with symmetric, intactnephrograms and no evidence of hydronephrosis. No suspicious solid renalmass is seen. A trace amount of ascites is present the prostate, seminal vesicles andurinary bladder are unremarkable. No evidence of bowel obstruction is seen. The appendix is normal incaliber in the right lower quadrant. No abnormal perienteric orpericolonic fat stranding is seen. A mildly enlarged right external iliac lymph node measures 12 mm shortaxis and there is mild bilateral inguinal lymphadenopathy. There aresmall, subcentimeter periaortic and common iliac lymph nodes. Nomesenteric lymphadenopathy is seen.. Musculoskeletal: No significant osseous abnormality is seen. IMPRESSION: Impression: 1. No evidence of aortic aneurysm or dissection. 2. No evidence of pulmonary thromboembolism to the segmental level. 3. Congestive heart failure with small bilateral pleural effusions andmild interstitial alveolar pulmonary edema. 4. Trace ascites. 5. Mild splenomegaly. 6. Mild mediastinal, pelvic retroperitoneal and bilateral inguinallymphadenopathy, nonspecific. Telerad WILLIAN ([id number]) -------- FINAL REPORT -------- Dictated By: Parris Gardner Dictated Date: 02/15/2025 14:47 ET Assigned Physician: Parris Gardner Reviewed and Electronically Signed By: Parris Gardner Signed Date: 02/15/2025 15:01 ET Workstation ID: [id number] Transcribed By: Self Edit Transcribed Date: 02/15/2025 14:47 ET us Zaida Saavedra DO IMG CT PROCEDURES Final R esult * XR Lumbar Spine 2-3 Views (02/15/2025 1:53 PM EDT) Anatomical Region Laterality Modality Spine, L-spine Radiographic Aleida ging 02/15/2025 1:55 PM EDT Impressions 02/15/2025 1:56 PM EDT Impression: No evidence of lumbar spine fracture or subluxation. Telerad PA ([id number]) -------- FINAL REPORT -------- Dictated By: Parris Gardner Dictated Date: 02/15/2025 13:55 ET Assigned Physician: Parris Gardner Reviewed and Electronically Signed By: Parris Gardner Signed Date: 02/15/2025 13:56 ET Workstation ID: [id number] Transcribed By: Self Edit Transcribed Date: 02/15/2025 13:55 ET Narrative 02/15/2025 1:56 PM EDT History: Low back pain since fall one week ago. Comparison: No comparison imaging at this institution. Findings: AP, lateral and coned lateral views. Vertebral alignment is normal. The vertebral bodies maintain normal height and the disc spaces are preserved. Minimal anterior vertebral endplate spurring is seen. The apophyseal joints are intact. The sacroiliac joints are intact. Atherosclerotic vascular calcifications present. Procedure Note Parris Gardner MD - 02/15/2025 History: Low back pain since fall one week ago. Comparison: No comparison imaging at this institution. Findings: AP, lateral and coned lateral views. Vertebral alignment is normal. Thevertebral bodies maintain normal height and the disc spaces are preserved.Minimal anterior vertebral endplate spurring is seen. The apophysealjoints are intact. The sacroiliac joints are intact. Atherosclerotic vascular calcifications present. IMPRESSION: Impression: No evidence of lumbar spine fracture or subluxation. Telerad PA ([id number]) -------- FINAL REPORT -------- Dictated By: Parris Gardner Dictated Date: 02/15/2025 13:55 ET Assigned Physician: Parris Gardner Reviewed and Electronically Signed By: Parris Gardner Signed Date: 02/15/2025 13:56 ET Workstation ID: [id number] Transcribed By: Self Edit Transcribed Date: 02/15/2025 13:55 ET Zaida Saavedra DO IMG XR PROCEDURES Final R esult * XR Chest 2 Views (02/15/2025 1:53 PM EDT) Anatomical Region Laterality Modality Body Radiographic Aleida ging 02/15/2025 1:57 PM EDT Impressions 02/15/2025 1:58 PM EDT Impression: Congestive heart failure. Telerad WILLIAN ([id number]) -------- FINAL REPORT -------- Dictated By: Parris Gardner Dictated Date: 02/15/2025 13:57 ET Assigned Physician: Parris Gardner Reviewed and Electronically Signed By: Parris Gardner Signed Date: 02/15/2025 13:58 ET Workstation ID: [id number] Transcribed By: Self Edit Transcribed Date: 02/15/2025 13:57 ET Narrative 02/15/2025 1:58 PM EDT History: Dyspnea. Comparison: 11/10/23, 03/12/23 Findings: Upright AP and lateral views of the chest. Moderate enlargement of the cardiac silhouette is again noted. The pulmonary vessels are engorged. Smooth bronchial wall thickening is present and a mild interstitial pattern is seen. No airspace consolidations are identified. The costophrenic angles are minimally blunted posteriorly, consistent with trace pleural effusions. Procedure Note Parris Gardner MD - 02/15/2025 History: Dyspnea. Comparison: 11/10/23, 03/12/23 Findings: Upright AP and lateral views of the chest. Moderate enlargement of thecardiac silhouette is again noted. The pulmonary vessels are engorged.Smooth bronchial wall thickening is present and a mild interstitialpattern is seen. No airspace consolidations are identified. Thecostophrenic angles are minimally blunted posteriorly, consistent withtrace pleural effusions. IMPRESSION: Impression: Congestive heart failure. Teleliz DORSEY ([id number]) -------- FINAL REPORT -------- Dictated By: Parris Gardner Dictated Date: 02/15/2025 13:57 ET Assigned Physician: Parris Gardner Reviewed and Electronically Signed By: Parris Gardner Signed Date: 02/15/2025 13:58 ET Workstation ID: [id number] Transcribed By: Self Edit Transcribed Date: 02/15/2025 13:57 ET us Zaida Saavedra DO IMG XR PROCEDURES Final R esult * Vascular US Duplex Lower Extremity Venous Right (02/15/2025 1:39 PM EDT) Anatomical Region Laterality Modality Vascular, Abdomen Ultrasound 02/15/2025 1:41 PM EDT Impressions 02/15/2025 1:42 PM EDT Impression: No evidence of deep vein thrombosis in the right femoral-popliteal venous segment. Telerad WILLIAN ([id number]) -------- FINAL REPORT -------- Dictated By: Parris Gardner Dictated Date: 02/15/2025 13:41 ET Assigned Physician: Parris Gardner Reviewed and Electronically Signed By: Parris Gardner Signed Date: 02/15/2025 13:42 ET Workstation ID: [id number] Transcribed By: Self Edit Transcribed Date: 02/15/2025 13:41 ET Narrative 02/15/2025 1:42 PM EDT History: Right lower extremity swelling. Findings: Duplex and color Doppler imaging of the deep venous system of the right lower extremity was performed from the inguinal ligament to the popliteal fossa. The common femoral, femoral and popliteal veins are patent and compress completely. Normal spontaneous and phasic venous flow is demonstrated with Doppler. Normal flow augmentation with calf compression is demonstrated. The deep calf veins, as visualized, are compressible. Procedure Note Parris Gardner MD - 02/15/2025 History: Right lower extremity swelling. Findings: Duplex and color Doppler imaging of the deep venous system of the rightlower extremity was performed from the inguinal ligament to the poplitealfossa. The common femoral, femoral and popliteal veins are patent andcompress completely. Normal spontaneous and phasic venous flow isdemonstrated with Doppler. Normal flow augmentation with calf compressionis demonstrated. The deep calf veins, as visualized, are compressible. IMPRESSION: Impression: No evidence of deep vein thrombosis in the right femoral-popliteal venoussegment. Telerad WILLIAN ([id number]) -------- FINAL REPORT -------- Dictated By: Parris Gardner Dictated Date: 02/15/2025 13:41 ET Assigned Physician: Parris Gardner Reviewed and Electronically Signed By: Parris Gardner Signed Date: 02/15/2025 13:42 ET Workstation ID: [id number] Transcribed By: Self Edit Transcribed Date: 02/15/2025 13:41 ET Zaida Saavedra DO CV VASCULAR PROCEDURES Fi nal Result * Lactate (02/15/2025 1:00 PM EDT) [facility] Lactate 1.6 0.4 - 2.0 mmol/L LAB CHEMISTRY METHOD 02/15/2025 2:05 PM EDT [facility] Blood Venous blood specimen / Unknown Venipuncture / Unknown 02/15/2025 1:00 PM EDT 02/15/2025 1:24 PM EDT Zaida HerBabyShower Leonard Saavedra LAB BLOOD ORDERABLES Hillary l Result Performing Organization Address [facility]/ZIP Co de Phone Number [facility] [address] [place] [address], [place] [phone] * Blood culture (02/15/2025 12:59 PM EDT) Only the most recent of2 resultswithin the time period is included. [facility] Culture, Blood No growth at 5 days 02/20/2025 2:01 PM EDT [facility] Blood Venous blood specimen / Unknown Venipuncture / Unknown 02/15/2025 12:59 PM EDT 02/15/2025 1:24 PM EDT Zaida HerBabyShower Leonard Saavedra LAB MICROBIOLOGY - GENERA L ORDERABLES Final Result Performing Organization Address [facility]/ZIP Co de Phone Number [facility] [address] [place] [address], [place] [phone] * Troponin I high sensitivity (02/15/2025 12:51 PM EDT) Only the most recent of2 resultswithin the time period is included. [facility] High Sensitivity Troponin I 48 <=79 ng/L LAB CHEMISTRY METHOD 02/15/2025 2:59 PM EDT [facility] Blood Venous blood specimen / Unknown 02/15/2025 12:51 PM EDT 02/15/2025 2:45 PM EDT Narrative [facility] - 02/15/2025 2:59 PM EDT High levels of biotin in samples may falsely decrease hsTroponin values. ??Use caution when interpreting hsTroponin results in patients taking biotin who exhibit renal impairment (eGFR <60) or in patients taking more than 20 mg/day of biotin. Zaida Saavedra DO LAB BLOOD ORDERABLES Hillary l Result [facility] [address] [place] [address], [place] [phone] * ECG 12 lead (02/15/2025 12:38 PM EDT) [facility] Ventricular Rate ECG 87 BPM GEMUSE Atrial Rate 87 BPM GEMUSE P-R Interval 144 ms GEMUSE QRS Duration 86 ms GEMUSE Q-T Interval 382 ms GEMUSE QTc 459 ms GEMUSE P Wave [place] 48 degrees GEMUSE R [place] 24 degrees GEMUSE T [place] 66 degrees GEMUSE ECG Interpretation Normal sinus rhythm Poor R wave progression When compared with ECG of 12-MAR-2023 16:53, No significant change was found Confirmed by Kal LINK YUFENG ([id number]) on 02/15/2025 5:37:35 PM GEMUSE 02/15/2025 12:3 8 PM EDT 02/15/2025 5:37 PM EDT us Zaida Saavedra DO ECG ORDERABLES Final Res ult GEMUSE * (ABNORMAL) Urinalysis with reflex microscopic and culture (02/15/2025 12:35 PM EDT) Specific [place] Urine 1.032(H) 1.003 - 1.030 LAB URINALYSIS - AUTOMATED METHOD 02/15/2025 1:10 PM [facility] pH, Urine 5.5 5.0 - 8.0 pH LAB URINALYSIS - AUTOMATED METHOD 02/15/2025 1:10 PM [facility] Leukocytes, Urine Negative Negative LAB URINALYSIS - AUTOMATED METHOD 02/15/2025 1:10 PM [facility] Nitrite, Urine Negative Negative LAB URINALYSIS - AUTOMATED METHOD 02/15/2025 1:10 PM [facility] Protein, Urine >=1000(A) <=Trace mg/dL LAB URINALYSIS - AUTOMATED METHOD 02/15/2025 1:10 PM [facility] Glucose, Urine >=1000(A) Negative mg/dL LAB URINALYSIS - AUTOMATED METHOD 02/15/2025 1:10 PM [facility] Ketones, Urine Trace(A) Negative mg/dL LAB URINALYSIS - AUTOMATED METHOD 02/15/2025 1:10 PM [facility] Urobilinogen , Urine 1.0 0.2 - 1.0 mg/dL LAB URINALYSIS - AUTOMATED METHOD 02/15/2025 1:10 PM [facility] Bilirubin, Urine Small(A) Negative LAB URINALYSIS - AUTOMATED METHOD 02/15/2025 1:10 PM [facility] Blood, Urine Moderate(A) Negative LAB URINALYSIS - AUTOMATED METHOD 02/15/2025 1:10 PM [facility] RBC, Urine 13.2(H) 0 - 4 /HPF LAB URINALYSIS - AUTOMATED METHOD 02/15/2025 1:10 PM EDT [facility] WBC, Urine 3.2 0 - 4 /HPF LAB URINALYSIS - AUTOMATED METHOD 02/15/2025 1:10 PM EDT [facility] Squamous Epithelial, Urine 30 0 - 60 /LPF LAB URINALYSIS - AUTOMATED METHOD 02/15/2025 1:10 PM EDT [facility] Bacteria, Urine Negative Negative /HPF LAB URINALYSIS - AUTOMATED METHOD 02/15/2025 1:10 PM EDT [facility] Hyaline Casts, Urine 26.5(H) 0 - 3 /LPF LAB URINALYSIS - AUTOMATED METHOD 02/15/2025 1:10 PM EDT [facility] Urine Urine specimen obtained by clean catch procedure / Unknown Non-blood Collection / Unknown 02/15/2025 12:35 PM EDT 02/15/2025 12:53 PM EDT us [facility] Maxime Saavedra DO LAB URINE ORDERABLES Hillary l Result [facility] [address] [place] [address], * Respiratory virus panel molecular study (02/15/2025 12:35 PM EDT) Pathologist [facility] Adenovirus Detection by PCR Not Detected Not Detected LAB MICROBIOLOGY METHOD 02/15/2025 1:44 PM EDT [facility] Influenza A PCR Not Detected Not Detected LAB MICROBIOLOGY METHOD 02/15/2025 1:44 PM EDT [facility] Influenza B PCR Not Detected Not Detected LAB MICROBIOLOGY METHOD 02/15/2025 1:44 PM EDT [facility] Coronavirus 229E Not Detected Not Detected LAB MICROBIOLOGY METHOD 02/15/2025 1:44 PM EDT [facility] Coronavirus HKU1 Not Detected Not Detected LAB MICROBIOLOGY METHOD 02/15/2025 1:44 PM EDT [facility] Coronavirus OC43 Not Detected Not Detected LAB MICROBIOLOGY METHOD 02/15/2025 1:44 PM EDT [facility] Coronavirus NL63 Not Detected Not Detected LAB MICROBIOLOGY METHOD 02/15/2025 1:44 PM EDT [facility] Parainfluenza Virus 1 Not Detected Not Detected LAB MICROBIOLOGY METHOD 02/15/2025 1:44 PM EDT [facility] Parainfluenza Virus 2 Not Detected Not Detected LAB MICROBIOLOGY METHOD 02/15/2025 1:44 PM EDT [facility] Parainfluenza Virus 3 Not Detected Not Detected LAB MICROBIOLOGY METHOD 02/15/2025 1:44 PM EDT [facility] Parainfluenza Virus 4 Not Detected Not Detected LAB MICROBIOLOGY METHOD 02/15/2025 1:44 PM EDT [facility] RSV PCR Not Detected Not Detected LAB MICROBIOLOGY METHOD 02/15/2025 1:44 PM EDT [facility] Human Metapneumovirus A and B Not Detected Not Detected LAB MICROBIOLOGY METHOD 02/15/2025 1:44 PM EDT [facility] Rhinovirus/Entero virus Not Detected Not Detected LAB MICROBIOLOGY METHOD 02/15/2025 1:44 PM EDT [facility] Bordetella pertussis Not Detected Not Detected LAB MICROBIOLOGY METHOD 02/15/2025 1:44 PM EDT [facility] Bordetella parapertussis Not Detected Not Detected LAB MICROBIOLOGY METHOD 02/15/2025 1:44 PM EDT [facility] Mycoplasma pneumo by PCR Not Detected Not Detected LAB MICROBIOLOGY METHOD 02/15/2025 1:44 PM EDT [facility] Chlamydia pneumoniae Not Detected Not Detected LAB MICROBIOLOGY METHOD 02/15/2025 1:44 PM EDT [facility] SARS COV-2 Not Detected Not Detected LAB MICROBIOLOGY METHOD 02/15/2025 1:44 PM EDT [facility] Swab Nasopharyngeal structure / Unknown Non-blood Collection / Unknown 02/15/2025 12:35 PM EDT 02/15/2025 12:53 PM EDT Narrative [facility] - 02/15/2025 1:44 PM EDT Testing was performed using the [employer] Respiratory Pathogen PCR Assay. All results must be correlated with the clinical findings. Results should not be used as the sole basis for diagnosis. False Negative results may occur from the presence of sequence variants in the region targeted by the assay or the presence of inhibitors. Results may be affected by concurrent antiviral/antimicrobial therapy or levels of organisms that are below the limit of detection. [facility] LAB MICROBIOLOGY - GENERA L ORDERABLES Final Result Performing Organization Address [facility]/ZIP Co de Phone Number [facility] [address] [place] [address], [place] [phone] * Moreno urine culture tube (02/15/2025 12:35 PM EDT) Pathologist [facility] Extra Tube Hold for add-ons. 02/15/2025 2:01 PM EDT [facility] Comment:Auto resulted. Urine Urine specimen obtained by clean catch procedure / Unknown Non-blood Collection / Unknown 02/15/2025 12:35 PM EDT 02/15/2025 12:53 PM EDT [facility] Leonard Saavedra LAB URINE ORDERABLES Hillary l Result [facility] [address] [place] [address], [place] [phone] * Creatine kinase (02/15/2025 12:23 PM EDT) Total CK 169 22 - 269 unit/L LAB CHEMISTRY METHOD 02/15/2025 2:28 PM EDT [facility] Blood Venous blood specimen / Unknown Venipuncture / Unknown 02/15/2025 12:23 PM EDT 02/15/2025 12:54 PM EDT Zaida Saavedra DO LAB BLOOD ORDERABLES Hillary l Result [facility] [address] [place] [address], [place] [phone] * (ABNORMAL) Hepatic function panel (02/15/2025 12:23 PM EDT) Total Protein 5.7(L) 6.0 - 8.0 g/dL LAB CHEMISTRY METHOD 02/15/2025 1:50 PM EDT [facility] Albumin 1.9(L) 3.2 - 5.0 g/dL LAB CHEMISTRY METHOD 02/15/2025 1:50 PM EDT [facility] Total Bilirubin 1.3 0.0 - 1.4 mg/dL LAB CHEMISTRY METHOD 02/15/2025 1:50 PM EDT [facility] Bilirubin, Direct 0.2 0.0 - 0.3 mg/dL LAB CHEMISTRY METHOD 02/15/2025 1:50 PM EDT [facility] Comment:Hemolysis present Bilirubin, Indirect 1.1 0.0 - 1.1 mg/dL LAB CHEMISTRY METHOD 02/15/2025 1:50 PM EDT [facility] ALT (SGPT) 18 10 - 60 unit/L LAB CHEMISTRY METHOD 02/15/2025 1:50 PM T [facility] AST (SGOT) 33 10 - 42 unit/L LAB CHEMISTRY METHOD 02/15/2025 1:50 PM EDT [facility] Comment:Hemolysis present Alkaline Phosphatase 130(H) 42 - 121 unit/L LAB CHEMISTRY METHOD 02/15/2025 1:50 PM EDT [facility] Blood Venous blood specimen / Unknown Venipuncture / Unknown 02/15/2025 12:23 PM EDT 02/15/2025 12:54 PM EDT Zaida Saavedra DO LAB BLOOD ORDERABLES Hillary thomas Result [facility] ([facility] [address] [place] [address], [place] [phone] from Last 3 Months Additional Health Concerns Infection Onset Date Last Indicated MRSA 02/18/2025 02/18/2025 Insurance [facility] [employer] PL[employer] Advance Directives * Full Code - Default (Latest Code Status on File) Date Activated Date Inactivated Comments 02/15/2025 5:57 PM 02/19/2025 7:05 PM This is orde r is used when code status has not been discussed with the patient, or code status is otherwise unknown/unconfirmed To update the patient's code status, place a code status order. Do not modify or discontinue any currently active code status orders.
--- OUTSIDE RECORDS SUMMARY | 2025-02-26 07:14 | XMS_ITS | Clinical Summary ---
Author Organization [facility] Address [address] [address] Phone Care Team Providers Care Commercial Fisher Name Role Phone Marilee Cordero BRANDEN Primary Care Provider [phone] Allergies No known active allergies Medications amLODIPine [...] Hospitalization for CHF exacerbation: Oct 2023 at [facility] Last Assessment & Plan: - Reviewed condition and concerning signs/symptoms - Cont med regimen below: Aspirin 81mg daily Atorvastatin 40mg nightly Lisinopril-hydrochlorothiazide 20-25mg daily Furosemide 40mg BID Benign prostatic hyperplasia 02/26/2015 Overview (04/03/2024): ?? Continues with tamsulosin 0.4mg daily ?? Reports symptoms well controlled Hyperlipidemia 01/25/2013 Allergic rhinitis 08/14/2012 Asthma 08/14/2012 Gastroesophageal reflux disease 08/14/2012 Immunizations Immunization Administration Dates Next Due Hep A, 2 [...] Mass Index - - Plan of Treatment Upcoming Encounters Date Type Department Care Team (Late st Contact Info) Description 03/28/2025 9:45 AM EDT Office Visit [facility] [address] [phone] Jostin Ronquillo MD [address] [address] Health Maintenance Due Date Last Done Comments Hepatitis B Vaccine (1 of 3 - 19+ 3-dose series) 1989 09/27/2005, 05/31/2005, 03/24/2005 Pneumococcal Vaccine: 50+ Ye ars (3 of 3 - PPSV23, PCV20 or PCV21) 08/23/2018 06/28/2018, 09/30/2008 Colorectal Cancer Screening: Annual FOBT 2019 Colorectal Cancer Screening: Colonoscopy 2019 Colorectal Cancer Screening: Sigmoidoscopy 2019 Diabetes: Ophthalmology Exam 01/10/2024 Diabetes: Pedal Pulse Checked 01/10/2024 Diabetes: Sensory Foot Exam 01/10/2024 Diabetes: Visual Foot Exam 01/10/2024 Diabetes: Hemoglobin A1C 04/28/2025 025, 08/30/2024, 02/26/2024, Additional history exists Pneumococcal Vaccine: Peds ( 0 to 5 Years) and At-Risk Patients (6 to 49 Years) Discontinued 06/28/2018, 09/30/2008 Influenza Vaccine Completed 08/30/2024, , 10/17/2022, Additional history exists Insurance [employer] [facility] ([id number]) Receptor Plan ([id number]) Care Teams Commercial Fisher Relationship Specialty Start Date End Date Marilee Cordero FNP [address] [place] [id number] PCP - General 01/08/24
[2025-02-26 07:33] LABS: MANUAL DIFF FLAG NO
[2025-02-26 07:48] LABS: Basophils Percent Auto 0.5 % (0-2); Eosinophils Absolute Auto 0.2 X10*3/uL (0.0-0.4); Hematocrit 34.8 % (42.0-52.0); Hemoglobin 11.6 g/dl (14.0-18.0); Imm Gran Abs Auto 0.07 X10*3/uL (0.00-0.03); Imm Gran Pct Auto 0.9 % (0.0-0.4); Lymphocytes Absolute Auto 0.8 X10*3/uL (1.2-4.9); Lymphocytes Percent Auto 11.3 % (20-40); Mean Corpuscular HGB Conc 33.3 g/dl (31.0-36.0); Mean Corpuscular Hemoglobin 28.1 pg (27.0-33.0); Mean Corpuscular Volume 84.3 fL (80.0-98.0); Mean Platelet Volume 8.7 fL (9.4-12.4); Monocytes Absolute Auto 0.4 X10*3/uL (0.1-1.2); Monocytes Percent Auto 5.3 % (2-11); Neutrophils Absolute Auto 5.9 x10*3/uL (2.0-8.3); Platelet Count 338 X10*3/uL (160-400); Red Blood Count 4.13 X10*6/uL (4.60-5.80); Red Cell Distribution Width 13.2 % (11.0-16.0); White Blood Count 7.4 X10*3/uL (4.8-10.8)
[2025-02-26 08:18] LABS: Alanine Aminotransferase 16 U/L (0-40); Albumin Level 3.2 g/dL (3.5-5.0); Alkaline Phosphatase 102 U/L (39-117); Anion Gap 14 (12-20); Aspartate Amino Transferase 16 U/L (5-37); Bilirubin Total 0.5 mg/dL (0.0-1.0); Blood Urea Nitrogen 27 mg/dL (9-16); C Reactive Protein 0.49 mg/dL (< or = 0.50); Calcium 9.1 mg/dL (8.4-10.2); Carbon Dioxide 28 mmol/L (22-29); Chloride 103 mmol/L (96-108); Estimated Glomerular Filt Rate > 60; Glucose Random 273 mg/dL (60-115); Potassium 4.2 mmol/L (3.3-5.1); Sodium 141 mmol/L (135-145); Total Protein 6.7 g/dL (6.5-8.0)
[2025-02-26 08:24] LABS: Erythrocyte Sedimentation Rate 87 MM/HR (0-15)
[2025-02-26 08:54] LABS: HBS Num1 2.23 mIU/mL (0-7.99); HBc Num1 0.06 S/CO (0.00-0.79); HBsAGNum1 0.29 S/CO (0.00-0.99); Hepatitis B Core Antibody Nonreactive (Nonreactive); Hepatitis B Surface Antigen Negative (Negative); ~HepC Num1 0.07 S/CO (0.00-0.79); ~Hepatitis B Surface Antibody NONREACTIVE (Nonreactive); ~Hepatitis C Antibody Nonreactive (Nonreactive)
[2025-02-27 08:20] LABS: Hepatitis A Antibody IgM 0.16 Index (0-0.79); ~Hepatitis A Antibody IgM Nonreactive (Nonreactive)
[2025-03-01 11:13] LABS: TS Negative Control Passed; TS Panel A 0; TS Panel B 0; TS Positive Control Passed; TSpotTB Negative (Negative)
== END 2025-02-26 07:11 | disposition home or self-care (01) ==
LOC: HO.LAB 07:10
PROVIDERS: PCP Registered Nurse; Visit Provider Student in an Organized Health Care Education/Training Program
DX: L40.50 Arthropathic psoriasis, unspecified (principal)
CPT/HCPCS: 36415; 80053; 85025; 85652; 86140; 86481; 86704; 86706; 86709; 86803; 87340

== ENCOUNTER 2025-03-04 08:55 | Outpatient (AMB) | payer OTHER, SELFPAY ==
--- NOTE | 2025-03-04 08:58 | MHC.OFFVIS ---
Vital Signs 03/04/25 09:03 Height 6 ft Weight 226 lb 3.108 oz BMI 30.7 BP 130/70 Blood Pressure Location Rt brachial Position Sitting Pulse 94 Pulse Source Pulse Oximeter Pulse Oximetry (%) 98 Oxygen Delivery Method Room Air Intake Visit Reasons: PsA/ req sooner appt Intake Note: Patient presents for PsA. Customs Compliance Analyst Required: Yes Customs Compliance Analyst Language: Chemical Processing Laborer Services: Customs Compliance Analyst Present Customs Compliance Analyst Name: Madelyn [id number] Information Interpreted: non-clinical & clinical Allergies No Known Allergies Allergy (Verified 03/04/25 09:03) Medication List - Last Reconciled 03/04/25 by Jeanie Patel MD acetaminophen 650 mg PO TID PRN aspirin 81 mg PO DAILY atorvastatin 40 mg PO QPM benzonatate 100 mg PO TID PRN dulaglutide (Trulicity) mg subcut folic acid 1 mg PO DAILY furosemide (Lasix) 80 mg PO BID gabapentin 100 mg PO QPM insulin glargine (Lantus Solostar U-100 Insulin) 10 units subcut BEDTIME ixekizumab (Taltz Autoinjector) 80 mg subcut Q4W lidocaine 5% 1 patch topically; 30 days lisinopril-hydrochlorothiazide 20-25 mg 1 tab PO DAILY meloxicam 7.5 mg PO DAILY PRN metformin ER 500 mg PO tamsulosin mg PO QPM HPI Comments Details: Patient is a 54-year-old male with hyperlipidemia, diabetes, hypertension c/b HFrEF, 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 Garcia. At that time he was following up for his psoriasis and psoriatic arthritis. He was not on any DMARDs because he did not receive his Taltz medication. His psoriatic arthritis was controlled but his psoriasis was diffuse and he was started on Taltz. He started the dose of Taltz back in March however ran out and had not followed up with a provider. Has been having health issues including heart issues. Recently hospitalized at [facility] for HF exacerbation Patient currently not on any DMARD medications Denies prolonged AM stiffness but has significant psoriatic plaques Rheumatologic History: Methotrexate - failed Enbrel - failed Humira - failed Taltz - effective but lost to follow up Initial history: This is a 52-year-old male with past medical history of hypertension, diabetes, dyslipidemia, psoriasis, psoriatic arthritis who presents for evaluation of psoriatic arthritis. Patient was on methotrexate and Enbrel and his psoriasis and psoriatic arthritis were relatively well controlled. He has not received Enbrel for 3 years. He previously failed Humira. His last dose of methotrexate was 8 months ago. He states that his psoriasis has come back over his body and is quite itchy. He also has chronic low back pain, mentions history of sciatica. He states that his back pain is almost all day. Is not always worse in the morning. He also has diffuse pain in his hands, wrists, ankles. He was admitted 2 months ago for a diabetic foot infection. 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 Review of Systems Const Details: Review of Systems Constitutional: Denies fever, chills, weight loss ENT: Denies vision changes, eye pain or eye redness, dental caries, dry mouth GI: Denies nausea, vomiting, diarrhea, abdominal pain, change in BM Pulm: Denies SOB, BELL, hemoptysis, wheezing Cards: Denies chest pain, palpitations Skin: Denies Raynaud's, nail changes, photosensitivity, ADVERTISING DIRECTOR: Denies headaches, weakness, paresthesias, recurrent falls MSK: as per HPI All other systems reviewed and are unremarkable except noted above Physical Exam Vital Signs: Last Vital Signs Pulse 94 03/04/25 09:03 BP 130/70 03/04/25 09:03 Pulse Ox 98 03/04/25 09:03 Oxygen Delivery Method Room Air 03/04/25 09:03 BMI result Body Mass Index 30.7 Vital signs reviewed Physical Examination CONSTITUITIONAL Patient alert and cooperative. Well appearing and in no apparent painful distress HEENT Conjunctiva and sclera clear. ?Pupils equal round and reactive to light. ?No lymphadenopathy. ? CHEST/RESPIRATORY SYSTEM Normal respiratory effort and able to speak in complete sentences. ?Clear to auscultation bilaterally. ?No crackles, rales, rhonchi, wheezes heard. CARDIAC SYSTEM Regular rate and rhythm. ?S1 and S2 heard no murmurs. ?Radial pulses intact bilaterally MSK Hands: ?Able to make a fist. No synovitis noted to the MCPs, PIPs or DIPs. ?No tenderness to palpation of these joints. No deformities noted. ? Wrists: ?Full range of motion at the wrists without pain. ?No tenderness to palpation or synovitis noted to the wrists. Elbows: Full range of motion without pain. No tenderness, weakness, swelling, increased warmth or erythema. Shoulders: Full range of active range of motion without pain. No tenderness, weakness, swelling, increased warmth or erythema. Knees: ?Full range of motion. ?No tenderness, swelling, increased warmth or erythema.?No effusion or crepitations Ankles: Full range of motion. ?No tenderness, swelling, increased warmth or erythema.? Pitting edema up to mid miller bilaterally Feet: ?Negative squeeze test. ?No tenderness to palpation or swelling of the MTPs. Tender points:?No tenderness to palpation of the bilateral trapezius, supraspinatus, greater trochanters, anterior costochondral junctions, bilateral gluteal areas, bilateral suboccipital muscle insertions SKIN Patient has several areas of psoriatic plaques: bilateral extensor surface of elbows, bilateral extensor surface of knees and lower extremities, Mid back, hands, gluteal cleft and abdomen Results Reviewed Results Reviewed: Laboratory Tests 02/26/25 07:32 WBC 7.4 RBC 4.13 L D Hgb 11.6 L D Hct 34.8 L Plt Count 338 D ESR 87 H Sodium 141 Potassium 4.2 Chloride 103 Carbon Dioxide 28 BUN 27 H Creatinine 1.06 AST 16 ALT 16 Alkaline Phosphatase 102 C-Reactive Protein 0.49 Infectious serologies 02/26/25 07:32 Hepatitis A IgM Ab Nonreactive Hep Bs Antigen Negative Hep Bs Antibody NONREACTIVE Hep B Core Total Ab Nonreactive Hepatitis C Ab (EIA) Nonreactive TB Test (T-Spot) Com Negative Assessment & Plan Assessment & Plan (1) Psoriatic arthritis: Comment: Methotrexate - failed Enbrel - failed Humira - failed Taltz - effective but lost to follow up Code(s): L40.50 - Arthropathic psoriasis, unspecified Category: Medical Plan: #PsO/PsA Patient is a 54-year-old male with psoriasis complicated by psoriatic arthritis here today for follow up. Patient is having a horrible flare of his psoriasis with significant patches covering about 20% of his body surface area. Thankfully his psoriatic arthritis is stable. 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 ?Risks include infections, injection site reactions, activation of inflammatory bowel disease. Benefits include improved disease activity. Discussed with patient that if she is feeling sick or having flu-like symptoms she is to hold the medication that week and resolved the following week. Plan I spent 42 minutes reviewing the record and labs, taking a history, examining the patient, discussing the treatment plan, ordering diagnostic work up and documenting in the medical record Orders: Orders Complete Blood Count Auto Diff 4 Months L40.50 - Arthropathic psoriasis, unspecified Comprehensive Met. Panel 4 Months L40.50 - Arthropathic psoriasis, unspecified C Reactive Protein 4 Months L40.50 - Arthropathic psoriasis, unspecified Erythrocyte Sedimentation Rate 4 Months L40.50 - Arthropathic psoriasis, unspecified Medications: Changed From ixekizumab (Taltz Autoinjector) 80 mg subcut Q4W 1 mL 4RF L40.50 - Arthropathic psoriasis, unspecified, L40.9 - Psoriasis, unspecified To ixekizumab (Taltz Autoinjector) 80 mg subcutaneously; 160 mg once, followed by 80 mg at weeks 2, 4, 6, 8, 10, and 12, and then 80 mg every 4 weeks 2 mL 6RF L40.50 - Arthropathic psoriasis, unspecified, L40.9 - Psoriasis, unspecified Coding Level of Care Code Est Pt Level 5 (14373) Complex EM visit Add On G2211 Diagnoses Psoriatic arthritis L40.50 Long-term current use of ixekizumab Z79.620
[2025-03-04 09:03] VITALS: BP 130/70; PULSE 94; O2SAT 98; BMI 30.7
--- OUTSIDE RECORDS SUMMARY | 2025-03-04 09:32 | XMS_ITS | Encounter Summary ---
Author Organization [employer] Address [address] [place] [address] [address] [place] [address] Care Team Providers Care Coil Taper Name Role Phone Marilee Cordero PEST CONTROLLER Primary Care Provider [phone] Cristo Garcia MD Unavailable Doris Candelario Unavailable [phone] Yoselyn Lyons Unavailable Unavailable Balbir Don Unavailable Reason for Visit * Reason Comments Med Refill Encounter Details Date Type Department Care Team (Late Contact Info) Description 07/23/2023 Refill [facility] [address] [place] [address] Donavan Mcgee AGNP Social History Tobacco Use [...] Department Care Team (Late Contact Info) Description 03/04/2025 1:00 PM EDT Office Visit [facility] PEDS [address] [place], [place] [phone] Abi Aden MD [address] [place], [place] [phone] 04/28/2025 9:00 AM EDT Office Visit [facility] [address] [place] [address] Marilee Cordero FNP [address] [place] [address] documented as of this encounter Visit Diagnoses Not on filedocumented in this encounter Additional Health Concerns Assessment Noted Time PHQ-9 Depression Total Score: 1 10/17/20 22 10:05 AM EST documented as of this encounter Care Teams Coil Taper Relationship Specialty Start Date End Date Marilee Cordero FNP [address] [place] [address] PCP - General Family Medicine 03/23/23 Cristo Garcia MD [address] [place] [address] [address] [place] [address] Rheumatology 09/01/24 Doris Candelario [address] [place] [address] Cardiology 09/01/24 Yoselyn Lyons [address] [place] [address] Ophthalmology 09/01/24 Balbir Don 22 [facility] [address] [place] [address] Sleep Medicine 09/01/[address] Dr[address] [facility] [address] [place] [address] Nephrology 09/01/24 documented as of this encounter
--- OUTSIDE RECORDS SUMMARY | 2025-03-04 09:32 | XMS_ITS | Continuity of Care Document ---
Author Organization [employer] Address [address] [place] [address] Phone Care Team Providers Care Supply Chain Technician Name Role Phone Raul Bailey LPC Unavailable Unavailable Allergies, Adverse Reactions, Alerts Substance Reaction Status Criticality No Known Allergies Active No Inform ation Medications Medication Instructions Dosage Effective Dates (start - stop) Status Comments chlorpromazine 50 mg tablet Take one tablet daily by mouth daily in the evening. - Active clonidine HCl 0.2 mg tablet Take one tablet daily in the evening. - Active sertraline 50 mg tablet Take one tablet daily by mouth. - Active Please deliver all medications to this client amlodipine 5 mg tablet Take 1 tablet daily - Active metformin 500 mg tablet Take 1 tablet twice a day - Active pantoprazole 20 mg tablet,delayed release Take 1 tablet daily - Active diclofenac 1 % topical gel - Active Procedures Procedure Date Alcohol and/or drug services Advance Directives Directive Yes / No Effective Date File Name No Information Encounters Encounter Description Practice Location Reason(s) For Visit Diagnoses Date Provider [facility], [address] [place] [address], [address], tel:[phone] [facility] [address] Leo Carter. [address] [place] [id number], . tel:[phone] [facility], [address] [place], [address], tel:[phone] MAT [facility]Brit [address] [place]. [address] [place] [address], [id number], [place]. tel:[phone] [facility], [address] [place] [address], [address], tel:[phone] No Information Margarito Sher. [address] [place] [address], [id number], [place]. tel:[phone] [facility], [address] [place] [address], [facility], [place] tel:[phone] CM MAT [facility]Brit [address] [place]. [address] [place] [address], [address] [place] [address], [place]. tel:[phone] [employer] [facility], [address] [place] [address], [facility], tel:[phone] [address] Montez Moss. [address] [place] [address], [address] [place] [address], [place]. tel:[phone] [employer] [facility], [address] [place] [address], [facility], [place] tel:[phone] OP A [address] Anay Blair. [address] [place] [address], [address] [place] [address], [place]. tel:+[phone] [employer] [facility], [address] [place] [address], [facility], [place] tel:[phone] [address] EOC ([facility] ent of care) (chief complaint)e stablish care (chief complaint) Body mass index (BMI) 32.0-32.9, adultEssential (primary) hypertensionType 2 diabetes mellitus without complicationsGERD w/o esophagitisPerson encountering health serviceDietary counseling and surveillanceExercise counseling Grabiel Rasmussen. [address] [place] [address], [address] [place] [address], [place]. tel:[phone] [employer] [facility], [address] [place] [address], [address], [place] tel:[phone] CM MAT [facility]Brit [address] Archibald. [address] [facility], [place], [place], [id number], [place]. tel:[phone] As per patient privacy policy some of the clinical information may not be visible. Family History Family Member Type Diagnosis Age At Onset No Information Immunizations Vaccine Date Status Comments HepA/B (TWINRIX) administered Source: [place] Registry HepA/B ([place]) administered Source: [place] er Registry COVID-19 Vector-NR (JSN) administered Alaina rce: Other Registry Payers Payer name Insurance type Covered libertarian ID Authorantony rodriguez(s) Devi Alonso [id number] Social History Type Description Quantity Date Captured Comments Alcohol Use Details Unknown Caffeine Use Details Unknown Tobacco Use Status Moderate cigarette s moker (10-19 cigs/day) Smoking Status Heavy tobacco smoker Sex Male Sexual Orientation Don't Know Gender Identity Male Chief Complaint And Reason For Visit No Information Plan Of Treatment Date Type Action Status Goal ASCVD 10 year risk. Due on due Goal Hep B (2nd) due Goal Lipid panel. Due on due Goal Dilated eye exam. Due on February due Goal GFR. Due on due Goal Hep B (3rd). Due on 023 due Goal Dental exam. Due on 025 due Goal Influenza vaccine. Due on due Goal Hep B (1st) due Goal Pneumococcal vac cine. Due on due Goal Foot exam. Due on due Goal Influenza vaccine. Due on Ap due Goal Hep B (1st) due Goal Pneumococcal vac cine. Due on due Goal ASCVD 10 year risk. Due on A due Goal Foot exam. Due on due Goal Dental exam. Due on due Goal Hep B (3rd). Due on 023 due Goal GFR. Due on due Goal Dilated eye exam. Due on Jan due Goal Hep B () due Goal Lipid panel. Due on due Goal ASCVD 10 year risk. Due on due Goal Pneumococcal vac cine. Due on due Goal Foot exam. Due on due Goal GFR. Due on due Goal Dental exam. Due on due Goal Influenza vaccine. Due on due Goal Dilated eye exam. Due on Nov due Goal Hep B (1st). Due on due Goal Lipid panel. Due on due Goal Influenza vaccine. Due on due Goal Lipid panel. Due on due Goal GFR. Due on due Goal Pneumococcal vac cine. Due on due Goal Dilated eye exam. Due on Nov due Goal Dental exam. Due on 025 due Goal Foot exam. Due on due Goal Hep B (1st). Due on 025 due Goal ASCVD 10 year risk. Due on due Goal Tobacco cessation counseling completed Goal Lifestyle education regardin g diet completed Appointment Les, Joesph BOOKED Appointment Les, Joesph BOOKED Appointment Les, Joesph BOOKED Appointment Les, Joesph BOOKED Appointment Les, Joesph BOOKED Appointment Les, Joesph BOOKED Appointment Les, Joesph BOOKED Appointment Les, Joesph BOOKED Appointment Les, Joesph BOOKED Appointment Les, Joesph BOOKED Appointment Les, Joesph BOOKED Appointment Les, Joesph BOOKED Appointment Les, Joesph BOOKED Appointment Les, Joesph BOOKED Appointment Les, Joesph BOOKED Appointment Les, Joesph BOOKED Appointment Les, Joesph BOOKED Appointment Les, Joesph BOOKED Appointment Les, Joesph BOOKED Appointment Les, Joesph BOOKED Appointment Les, Joesph BOOKED Appointment Les, Joesph BOOKED Appointment Les, Joesph BOOKED Appointment Les, Joesph BOOKED Appointment Les, Joesph BOOKED Appointment Les, Joesph BOOKED Appointment Les, Joesph BOOKED Appointment Les, Joesph BOOKED Appointment Les, Joesph BOOKED Appointment Les, Joesph BOOKED Appointment Les, Joesph BOOKED Appointment Les, Joesph BOOKED Appointment Les, Joesph BOOKED Appointment Les, Joesph BOOKED Appointment Les, Joesph BOOKED Appointment Les, Joesph BOOKED Appointment Les, Joesph BOOKED Appointment Les, Joesph BOOKED Appointment Les, Joesph BOOKED Appointment Les, Joesph BOOKED Appointment Les, Joesph BOOKED Appointment Les, Joesph BOOKED Appointment Les, Joesph BOOKED Appointment Les, Joesph BOOKED Appointment Les, Joesph BOOKED Appointment Les, Joesph BOOKED Appointment Les, Joesph BOOKED Appointment Les, Joesph BOOKED Future Order: Lab Order CBC (INC LUDES DIFF/PLT) ([id number]), Sent on: Sent Future Order: Lab Order COMPREHE NSIVE METABOLIC PANEL ([id number]), Sent on: Sent Future Order: Lab Order HEMOGLOB IN A1C (496), Sent on: Sent Future Order: Lab Order CHLAMYDI A/NEISSERIA GONORRHOEAE RNA, TMA UROGENITAL ([id number]), Sent on: Sent Future Order: Lab Order HIV 1/2 ANTIGEN/ANTIBODY, FOURTH GEN W/ REFLEX ([id number]), Sent on: Sent Future Order: Lab Order HEPATITI S PANEL, ACUTE W/REFLEX ([id number]), Sent on: Sent Future Order: Lab Order LIPID PA NEHEMIAH ([id number]), Sent on: Sent Future Order: Lab Order RPR (DX) W/REFL TITER AND CONFIRMATORY TESTING ([id number]), Sent on: Sent Future Order: Lab Order MICROALB UMIN, RANDOM URINE (W/CREATININE) ([id number]), Sent on: Sent History Of Present Illness Encounter Date Complaint History Of Prese nt Illness establish care Here for establi sh of care for PCP. Last had a PCP in 2019. PMHx: HTN, GERD, T2DM, anxiety, depression, PTSDPSHx: reports laparoscopy as infantNo family history of colon cancer, prostate cancer Social: - group home house- smoking cigarettes 0.5ppd started in 20s - does not drink alcohol - used to smoking THC, also smoked crack cocaine - last purposeful use 2023- has family in area - brother, parents, has 3 daughters Had c-scope in 2023 - reports normal results EOC (establishment of care) Instructions Date Instruction Additional Infor serenity Welcomed to clinicBr benjamin discussed clinic policies and services availableReviewed medical, surgical, family and social history in detail Labs ordered Related to Person encountering health service refilled ppi Related to GERD w/o esophagitis Labs ordered for aba luation including A1c, lipids, cmp, microalbumin. Continue metformin bid for now. Last A1c: orderedEye Exam: discuss next visitFoot Exam: discuss next visit microalbumin: orderedStatin: not taking LUIS/ARB: not taking Related to Type 2 diabetes mellitus without complications At goal continue aml odipine 5mg daily labs orderedf/u 4-6 weeks Related to Essential (primary) hypertension Giving encouragement to exercise Related to Body mass index [BMI] 32.0-32.9, adult Lifestyle education regarding di et Related to Body mass index [BMI] 32.0-32.9, adult As per patient privacy policy some of the clinical information may not be visible. Assessments Type Assessment Date No Information As per patient privacy policy some of the clinical information may not be visible.
--- OUTSIDE RECORDS SUMMARY | 2025-03-04 09:32 | XMS_ITS | Encounter Summary ---
Author Organization [employer] Address [address] [facility] [address] [place] [address] Care Team Providers Care General Farm Hand Name Role Phone Marilee Cordero GOLF CLUB ASSEMBLER Primary Care Provider Cristo Garcia MD Unavailable Doris Candelario Unavailable [phone] Yoselyn Lyons Unavailable Unavailable Balbir Don Unavailable Encounter Details Date Type Department Care Team (Late st Contact Info) Description 08/11/2023 Abstract [facility] ADULT DENTAL [address] [place] [address] Gavino Lacey, DMD [address] [place] [address] Social History Tobacco Use Types Packs/Day Years [...] Care Team (Late st Contact Info) Description 03/04/2025 1:00 PM EDT Office Visit [facility] [address] [place] [address] Abi Aden MD [address] [place] [address] 04/28/2025 9:00 AM EDT Office Visit [facility] [address] [place] [address] Marilee Cordero FNP [address] [place] [address] documented as of this encounter Visit Diagnoses Not on filedocumented in this encounter Additional Health Concerns Assessment Noted Time PHQ-9 Depression Total Score: 1 10/17/20 22 10:05 AM EST documented as of this encounter Care Teams General Farm Hand Relationship Specialty Start Date End Date Marilee Cordero FNP [address] [place] [address] PCP - General Family Medicine 03/23/23 Cristo Garcia MD [address] [address] Rheumatology 09/01/24 Doris Candelario [address] [place] [address] Cardiology 09/01/24 Yoselyn Lyons [address] [place] [address] Ophthalmology 09/01/24 Balbir Don 22 [facility] [address] [place] [address] Sleep Medicine 09/01/24 Dr. Ramirez 100 [facility] [address] [place] [address] Nephrology 09/01/24 documented as of this encounter
--- OUTSIDE RECORDS SUMMARY | 2025-03-04 09:32 | XMS_ITS | Clinical Summary ---
Author Organization [employer] Address [address] [facility] [address] [place] [address] Care Team Providers Care Smt Machine Operator Name Role Phone Marilee Cordero BRANDEN Primary Care Provider [phone] Cristo Garcia MD Unavailable Doris Candelario Unavailable [phone] Yoselyn Lyons Unavailable Unavailable Balbir Don Unavailable Allergies No known active allergies Medications Blood Pressure kit Use daily Active Blood Glucose Monitoring Suppl (FreeStyle Arbon Lite) w/Device kit 1 each by Other [...] insulin pen needle 32G x 5 mm miscIndication s:Type 2 diabetes mellitus with hyperglycemia, with long-term current use of insulin (CMS/[facility]) Subcutaneous once daily use with lantus pen 100 each 3 03/23/20 23 Active gabapentin (Neurontin) 100 MG capsuleIndicat ions:Periphera l nerve disease TAKE 1 CAPSULE BY MOUTH EVERY EVENING (for nerve pain) 90 capsule 1 04/26/20 23 Active Continuous Blood Gluc [employer] Director (FreeStyle Osmani 2 Holly) deviceIndicati ons:Type 2 diabetes mellitus with hyperglycemia, with long-term current use of insulin (CMS/HCC) Scan sensor every 8 hours 1 each 11/26/19 24 Active Continuous Blood Gluc Sensor (FreeStyle Osmani 2 Sensor) miscIndication s:Type 2 diabetes mellitus with hyperglycemia, with long-term current use of insulin (CMS/[facility]) Apply 1 sensor every 14 days 2 each 3 11/26/19 24 Active metFORMIN XR (Glucophage-XR ) 500 MG 24 hr tabletIndicati ons:Type 2 diabetes mellitus with hyperglycemia, with long-term current use of insulin (CMS/HCC) TAKE 1 TABLET BY MOUTH TWICE DAILY IN THE MORNING AND IN THE EVENING WITH MEALS 180 tablet 1 02/09/20 24 Active Lantus SoloStar 100 UNIT/ML penIndications :Type 2 diabetes mellitus with hyperglycemia, with long-term current use of insulin ([facility]) Inject 10 Units under the skin at bedtime. 15 mL 3 02/09/20 24 Active atorvastatin (Lipitor) 40 MG tabletIndicati ons:Congestive heart failure, unspecified HF chronicity, unspecified heart [...] Taltz 80 MG/ML injection 05/09/20 24 Active furosemide (Lasix) 40 MG tablet Take 2 tablets by mouth 2 times daily. Active tamsulosin (Flomax) 0.4 MG 24 hr capsuleIndicat ions:Benign prostatic hyperplasia, unspecified whether lower urinary tract symptoms present TAKE 1 CAPSULE BY MOUTH EVERY EVENING (1/2 HOUR AFTER MEALS) 90 capsule 1 10/22/20 24 Active spironolactone (Aldactone) 25 MG tabletIndicati ons:Hypertensi on Take 25 mg by mouth Once per day. Cards Active Aspirin EC Adult Low Dose 81 MG EC tabletIndicati ons:Congestive heart failure, unspecified HF chronicity, unspecified heart failure type (CMS/HCC) TAKE 1 TABLET BY MOUTH EVERY MORNING 90 tablet 1 02/26/20 25 Active Entresto 49-51 MG tablet Take 1 tablet by mouth 2 times daily. 02/21/20 25 Active aspirin (Aspirin Low Dose) 81 MG EC tabletIndicati ons:Congestive heart failure, unspecified HF chronicity, unspecified heart failure type (CMS/HCC) Take 1 tablet (81 mg) by mouth in the morning. 90 tablet 1 02/09/20 24 2024 Discontinued Entresto 24-26 MG tablet Take 1 tablet by mouth 2 times daily. 06/11/20 24 2024 Discontinued(M ed list cleanup (will not trigger notification to Pharmacy)) Active Problems Problem Noted Date Diagnosed Date Proteinuria 09/01/2024 Overview (09/01/2024): Followed by [facility] - Dr. Ramirez Jardiance 10mg daily Psoriatic arthritis 08/30/2024 Overview (08/30/2024): Followed by [facility] Rheum - Dr. Garcia Med therapy: DMARD, Derik Previous tx: methotrexate and Enbrel (hx of failed Humira tx in Rheum note 02/04/21). Plan to hold methotrexate with hx cardiac conditions Assessment & Plan (09/01/2024 1:13 PM EST): Plan to start first dose on 09/01/24 Impacted third molar tooth 03/18/2024 Severe dental caries 03/18/2024 Non-restorable tooth 03/18/2024 Congestive heart failure 11/26/2023 Overview (01/27/2025): Following with [facility] Jul 2023: Nuclear stress test: Negative ECG [...] Hospitalization for CHF exacerbation: Oct 2023 at [facility] - Reviewed condition and concerning signs/symptoms - Cont med regimen below: Aspirin 81mg daily Atorvastatin 40mg nightly Furosemide 40mg BID (RX nephrology) Jardiance 10mg daily Carvedilol 6.25mg BID Entresto 24-26mg BID Spironolactone 25mg daily Assessment & Plan (01/27/2025 9:50 AM EDT): Cont current therapy, symptomatic SOB/BELL Referral to [facility] for further eval Assessment & Plan [...] 500mg BID Jardiance 10mg daily (rx through Material Control Analyst) - Trulicity on hold at this time [...] Date HGBA1C 13.5 (A) 08/11/2023 -BG initially [facility] in office, continued to be [facility] s/p 10 units lispro subcutaneous. After 2nd [...] tx in Rheum note 02/04/21) -Re-established with [facility] Rheum Nov 2021, last consult appt December 2023 Plan to hold methotrexate with hx cardiac conditions Taltz injections through Rheum with notable improvement Assessment & Plan (03/03/2024 2:42 PM EDT): -Previous tx with methotrexate and Enbrel (hx of failed Humira tx in Rheum note 02/04/21) -Re-established with [facility] Rheum Nov 2021, last consult appt December 2023 Plan to hold methotrexate with hx cardiac conditions Authorization for Taltz is pending Assessment & Plan (08/11/2023 1:16 PM EDT): -Previous tx with methotrexate and Enbrel (hx of failed Humira tx in Rheum note 02/04/21) -Re-established with [facility] Rheum Nov 2021 ?? Says may have re-started on methotrexate but unsure. Will bring med list to next appt. -Pt was also referred to [facility] Derm Team, appt pending Assessment & Plan (04/12/2023 1:37 PM EDT): -Previous tx with methotrexate and Enbrel (hx of failed Humira tx in Rheum note 02/04/21) -Re-established with [facility] Rheum Nov 2021 ?? Says may have re-started on methotrexate but unsure. Will bring med list to next appt. -Pt was also referred to [facility] Derm Team, appt pending Assessment & Plan (10/20/2022 9:18 AM EST): -Previous tx with methotrexate and Enbrel (hx of failed Humira tx in Rheum note 02/04/21) -Reports has not been taking any meddications for psoriasis in > 6 month, interested in re-establishing with specialists -Upcoming appt with [facility] Rheum Nov 2021 -Pt was also referred to [facility] Derm Team, appt pending Hypertension 06/13/2012 Assessment [...] apnea syndrome 06/13/2012 Overview (09/01/2024): Following with [facility] - Dr. Balbir Don Cont w/ CPAP, need updated titration report (home sleep study ordered Jul 2024 per specialist) Assessment & Plan (08/13/2023 8:36 AM EDT): ?? Continues with CPAP nightly ?? Due for settings adjustment, and also reporting intermittent discomfort with mask ?? Referral to [facility] Sleep Medicine for further eval and management Resolved Problems Problem Noted Date Diagnosed Date Resolved Date Retention of urine 02/26/2015 3 Elevated levels of transamin ase & lactic acid dehydrogenase 08/14/2012 10/20/2022 Encounters Date Type Department Care Team Description 02/26/2025 Orders Only GENERIC EXTERNAL DATA DEPARTMENT Provider, Generic External Data 02/21/2025 Patient Outreach [facility] [address] [place], [place] [phone] Marilee Cordero FNP Discharge request 02/20/2025 Patient Outreach [facility] [address] [place], [place] [phone] Marilee Cordero FNP Transition Of Care (Tcm) (HDF scheduled.) 02/20/2025 Telephone [facility] [address] [place] [address] [phone] Marilee Cordero FNP Hospital Follow-up 02/20/2025 Refill [facility] [address] [place], [place] [phone] Marilee Cordero FNP Congestive heart failure, unspecified HF chronicity, unspecified heart failure type (CMS/HCC) 02/13/2025 Telephone [facility] [address] [place], [place] [phone] Marilee Cordero FNP May recall 01/28/2025 Telephone [facility] [address] [place], [place] [phone] Marilee Cordero FNP 01/27/2025 9:00 AM EDT Office Visit [facility] [address] [place] [address] Marilee Cordero FNP Congestive heart failure, unspecified HF chronicity, unspecified heart failure type ([facility]) (Primary Dx); Primary hypertension; Type 2 diabetes mellitus with hyperglycemia, with long-term current use of insulin ([facility]); Routine health maintenance; Psoriatic arthritis ([facility]); Hematuria, unspecified type; Psoriasis 01/27/2025 Travel 01/23/2025 Telephone [facility] [address] [place] [address] Marilee Cordero FNP Chart Prep 12/23/2024 Refill [facility] [address] [place] [address] Marilee Cordero FNP from Last 3 Months Immunizations Name Administration [...] your housing situation today? I have clayton laura 08/30/[address] you li [...] Description 03/04/2025 1:00 PM EDT Office Visit [facility] [address] [place] [address] Abi Aden MD [address] [place] [address] 04/28/2025 9:00 AM EDT Office Visit [facility] [address] [place] [address] Marilee Cordero FNP [address] [place] [address] Health Maintenance Due Date Last Done Comments [...] 10/17/2022, 10/17/2022, Additional history exists COVID-19 Vaccine ( season) 2024 01/14/2022, 03/03/2021, 02/03/2021 Dental X-Ray: Bitewings 08/12/2024 08/11/20 23, 01/07/2014, 10/01/2010, Additional history exists Lipid Panel 09/13/2024 09/13/2023, 03/31, 01/26/2022 Diabetes: Urine Protein Screening 12/25/2024 12/25/2023, 09/13/2023, 01/26/2022, Additional history exists Diabetes: Hemoglobin A1C 04/28/2025 025, 08/30/2024, 02/26/2024, Additional history exists SDOH Screening 08/30/2025 08/30/2024 Depression Screening 01/27/2026 [...] Additional history exists Hepatitis C Screening Completed 02/26/2025 , 09/13/2023, 12/01/2022 HIB Vaccines Aged Out No longer eligi [...] Procedure Name Priority Date/Time Associated Diagnosis Comments T-SPOT(R).TB Routine 02/26/2025 7:32 AM EDT HEPATITIS PANEL, GENERAL Routine 02/26/2025 7:32 AM EDT SED RATE BY MODIFIED WESTERGREN Routine 02/26/2025 7:32 AM EDT C-REACTIVE PROTEIN Routine 02/26/2025 7: 32 AM EDT COMPREHENSIVE METABOLIC PANEL Routine 02/26/2025 7:32 AM EDT CBC WITH AUTO DIFFERENTIAL Routine 02/26/2025 7:32 AM EDT POCT URINALYSIS DIPSTICK Routine 01/27/2025 9:17 AM EDT Type 2 diabetes mellitus with hyperglycemia, with long-term current use of insulin (CMS/HCC) POCT GLYCATED HEMOGLOBIN, TOTAL Routine 01/27/2025 9:16 AM EDT Type 2 diabetes mellitus with hyperglycemia, with long-term current use of insulin (CMS/HCC) POCT GLUCOSE Routine 01/27/2025 9:16 AM EDT Type 2 diabetes mellitus with hyperglycemia, with long-term current use of insulin (CMS/HCC) URINALYSIS, COMPLETE, WITH REFLEX TO CULTURE Routine 01/27/2025 9:00 AM EDT Type 2 diabetes mellitus with hyperglycemia, with long-term current use of insulin (CMS/HCC) PANORAMIC RADIOGRAPHIC IMAGE Routine 03/18/2024 9:00 AM EDT ALBUMIN, RANDOM URINE W/CREATININE Routine 12/25/2023 9:50 AM EST Type 2 diabetes mellitus with hyperglycemia, with long-term current use of insulin (CMS/HCC) HIV 1/2 ANTIGEN/ANTIBODY, FOURTH GENERATION W/RFL Routine [...] Recently Relevant to Health Maintenance Results * T-SPOT??.TB (02/26/2025 7:32 AM EDT) [facility] T Spot TB Negative Negative [facility] Comment:A negative test resu lt does not exclude the possibilityof exposure to or infection with Mycobacteriumtuberculosis (M. tuberculosis). Patients with recentexposure to TB infected individuals exhibiting anegative T-SPOT.TB result should be considered forretesting within 6 weeks or if other relevant clinicalsymptoms indicate. Results from T-SPOT.TB testing mustbe used in conjunction with each individual'sepidemiological history, current medical status,and results of other diagnostic evaluations.The T-SPOT.TB test is qualitative and results arereported as positive, borderline, or negative, giventhat the test controls perform as expected. In linewith the Centers for Disease Control and Prevention's2010 recommendation to report quantitative measurementsalongside the qualitative result, the laboratoryprovides spot counts for informational purposes only.The T-SPOT.TB test should not be interpreted as aquantitative test. TS PANEL A 0 [facility] TS PANEL B 0 [facility] Negative Control Passed [facility] Positive Control Passed [facility] Comment:For additional infor matmary, please refer [email or web address]/[email or web address](This link is being provided for informational/educational purposes only.)REPORT COMMENT:REC IN Q/CHYTHIS TEST WAS PERFORMED AT:[employer] [id number] [place] [id number] RANDHAWA MD,PHD 02/26/2025 7:32 AM EDT 02/26/2025 7:32 AM EDT us Generic External Data Provider LAB BLOOD ORDERAB LES Final Result Performing Organization Address [facility] Co de Phone Number [facility] [address] [place] [phone] * Hepatitis Panel, General (02/26/2025 7:32 AM EDT) Pathologist [facility] Hepatitis A IgM Nonreactive Nonreactive [facility] Comment:IgM antibodies to GIBSON V not detected; does not exclude earlyacute or recovered HAV infection. ~Hepatitis B Surface Antibody NONREACTIVE Nonreactive [facility] Comment:Nonreactive: < 8.00 mIU/mL Hepatitis B Core Antibody Nonreactive Nonreactive [facility] Hepatitis C Antibody Nonreactive Nonreactive [facility] Comment:Antibodies to HCV no t detected; does not exclude early acuteHCV infection. Hepatitis B Surface Ag Negative Negative [facility] 02/26/2025 7:32 AM EDT 02/26/2025 7:32 AM EDT Generic External Data Provider LAB BLOOD ORDERAB LES Final Result Performing Organization Address [facility] Co de Phone Number [facility] [address] [place] [phone] * (ABNORMAL) CBC auto differential (02/26/2025 7:32 AM EDT) Pathologist [facility] White Blood Count 7.4 4.8 - 10.8 X10*3/uL [facility] Red Blood Count 4.13(L) 4.60 - 5.80 X10*6/uL [facility] Hemoglobin 11.6(L) 14.0 - 18.0 g/dl [facility] Hematocrit 34.8(L) 42.0 - 52.0 % [facility] Mean Corpuscular Volume 84.3 80.0 - 98.0 fL [facility] Mean Corpuscular Hemoglobin 28.1 27.0 - 33.0 pg [facility] Mean Corpuscular HGB Conc 33.3 31.0 - 36.0 g/dl [facility] Red Cell Distribution Width 13.2 11.0 - 16.0 % [facility] Platelet Count 338 160 - 400 X10*3/uL [facility] Mean Platelet Volume 8.7(L) 9.4 - 12.4 fL [facility] Neutrophils Percent Auto 80.0(H) 45 - 73 % [facility] Imm Gran Pct Auto 0.9(H) 0.0 - 0.4 % [facility] Lymphocytes Percent Auto 11.3(L) 20 - 40 % [facility] Monocytes Percent Auto 5.3 2 - 11 % [facility] Eosinophils Percent Auto 2.0 0 - 4 % [facility] Basophils Percent Auto 0.5 0 - 2 % [facility] NRBC Pct Auto 0.0 0.0 - 0.2 /100WBC [facility] Neutrophils Absolute Auto 5.9 2.0 - 8.3 x10*3/uL [facility] Imm Gran Abs Auto 0.07(H) 0.00 - 0.03 X10*3/uL [facility] Lymphocytes Absolute Auto 0.8(L) 1.2 - 4.9 X10*3/uL [facility] Monocytes Absolute Auto 0.4 0.1 - 1.2 X10*3/uL [facility] Eosinophils Absolute Auto 0.2 0.0 - 0.4 X10*3/uL [facility] Basophils Absolute Auto 0.0 0.0 - 0.2 X10*3/uL [facility] NRBC Abs Auto 0.000 0.0 - 0.012 X10*3/uL [facility] 02/26/2025 7:32 AM EDT 02/26/2025 7:32 AM EDT us Generic External Data Provider LAB BLOOD ORDERAB LES Final Result [facility] [address] [place], [place] [phone] * (ABNORMAL) Sed Rate by Modified Westergren (02/26/2025 7:32 AM EDT) Pathologist [facility] Erythrocyte Sedimentation Rate 87(H) 0 - 15 MM/HR [facility] Comment:Patients with polycy themia and many hemoglobin abnormalitiesmay have depressed sed rates whereas patients with anemiamay have elevated sed rates. 02/26/2025 7:32 AM EDT 02/26/2025 7:32 AM EDT Generic External Data Provider LAB BLOOD ORDERAB LES Final Result Performing Organization Address [facility]/ZIP Co de Phone Number [facility] [address] [place] [phone] * C-reactive Protein (02/26/2025 7:32 AM EDT) [facility] C Reactive Protein 0.49 < or = 0.50 mg/dL [facility] 02/26/2025 7:3 2 AM EDT 02/26/2025 7:32 AM EDT Generic External Data Provider LAB BLOOD ORDERAB LES Final Result Performing Organization Address [facility] Co de Phone Number [facility] [address] [place] [phone] * (ABNORMAL) Comprehensive Metabolic Panel (02/26/2025 7:32 AM EDT) Pathologist [facility] Sodium 141 135 - 145 mmol/L [facility] Potassium 4.2 3.3 - 5.1 mmol/L [facility] Chloride 103 96 - 108 mmol/L [facility] Carbon Dioxide 28 22 - 29 mmol/L [facility] Anion Gap 14 12 - 20 [facility] Urea Nitrogen (BUN) 27(H) 9 - 16 mg/dL [facility] Creatinine, Serum 1.06 0.5 - 1.4 mg/dL [facility] Estimated Glomerular Filt Rate >60 [facility] Comment:Chronic Kidney Disea se: Estimated GFR < 60 mL/min/1.08u5Cikhra Kidney Disease: Estimated GFR < 15 mL/min/1.73m2 Glucose 273(H) 60 - 115 mg/dL [facility] Calcium 9.1 8.4 - 10.2 mg/dL [facility] Bilirubin, Total 0.5 0.0 - 1.0 mg/dL [facility] Aspartate Amino Transferase 16 5 - 37 U/L [facility] Alanine Aminotransferase 16 0 - 40 U/L [facility] Total Protein 6.7 6.5 - 8.0 g/dL [facility] Albumin Level 3.2(L) 3.5 - 5.0 g/dL [facility] Alkaline Phosphatase 102 39 - 117 U/L [facility] 02/26/2025 7:32 AM EDT 02/26/2025 7:32 AM EDT us Generic External Data Provider LAB BLOOD ORDERAB LES Final Result [facility] [address] [place] [address] [phone] * (ABNORMAL) POCT Urinalysis (01/27/2025 9:17 AM [...] Urine 01/27/2025 9:17 AM EDT us Marilee Cordero [employer]NATIONAL [employer] MANAGER POINT OF CARE TEST ENTER/EDIT ORDERABLES Final Result * (ABNORMAL) POCT HGB A1C (01/27/2025 9:16 AM EDT) Hemoglobin A1C 10.9(A) 4.0 - 6.0 % QC Media Lot # [id number] Lot# Expiration Date Blood 01/27/2025 9:16 AM EDT [facility]ilee [facility] POINT OF CARE TEST ENTER/EDIT ORDERABLES Final Result * (ABNORMAL) POCT Glucose (01/27/2025 9:16 AM EDT) Glucose Blood, POC 385(A) 60 - 200 mg/dL QC Media Lot # [id number] Lot# Expiration Date Blood Capillary blood specimen / Unknown 01/27/2025 9:16 AM EDT Marilee [facility] POINT OF CARE TEST ENTER/EDIT ORDERABLES Final Result * (ABNORMAL) Urinalysis, Complete, with Reflex to Culture (01/27/2025 9:00 AM EDT) Color Urine Yellow [facility] Appearance Urine Clear [facility] PH 6.0 5.0 - 9.0 [facility] Glucose Urine UA >=1000(A) Negative mg/dL [facility] Urine Blood Trace(A) Negative [facility] Specific [place] - Urine 1.020 1.005 - 1.025 [facility] Urine Protein 300 (3+)(A) Neg-Trace mg/dL [facility] Urine Ketones Negative Negative mg/dL [facility] Nitrite Urine Negative Negative [facility] Leukocyte Esterase Urine Negative Negative [facility] RBC Urine 0-2 0 - 2 /HPF [facility] Urine WBC 0-5 0 - 5 /HPF [facility] Urine Squamous Epithelial Cell 0-2 0 - 2 /HPF [facility] Urine Bacteria None Seen None Seen [facility] Hyaline Casts, Urine 0-2 0 - 2 /LPF [facility] Urine 01/27/2025 9:00 AM EDT 01/27/2025 2:58 PM EDT Narrative [facility] - 01/27/2025 3:18 PM EDT [id number], Clean Catch Marilee Cordero [facility] URINE ORDERABLES Final Res ult Performing Organization Address [facility] Co de Phone Number [facility] [address] [place] [phone] * (ABNORMAL) Albumin, Random Urine W/Creatinine (12/25/2023 9:50 AM EST) Creatinine, Urine 162.10 mg/dL [facility] Microalbumin Urine >2,000.0 mg/L [facility] Microalbum Creatinine Ratio Ur 1,233.8(H ) <30 ug/mg cr [facility] Comment:Albumin/Creatinine R atio Reference Ranges: Normal: < 30 ug/mg creatinine Microalbuminuria: 30 - 300 ug/mg creatinineClinical Albuminuria: > 300 ug/mg creatinine Urine 12/25/2023 9:50 AM EST 12/25/2023 2:38 PM EST Marilee Cordero [facility] URINE ORDERABLES Final Res ult Performing Organization Address [facility] Phone Number [facility] [address] [place] [address] [phone] * HIV-1/2 Antigen and Antibodies, Fourth Generation, with Reflexes (09/13/2023 7:53 AM EST) HIV AB/AG Nonreactive Nonreactive [facility] Comment:HIV-1 p24 Ag and/or HIV-1/HIV-2 Ab not detected.A test result that is nonreactive does not exclude thepossibility of exposure to or infection with HIV-1 and/orHIV-2. Nonreactive results in this assay for individualswith prior exposure to HIV-1 and/or HIV-2 may be due toantigen and antibody levels that are below the limit ofdetection of this assay.[employer] HIV Ag/Ab Combo assay result andsupplemental assay results should be interpreted inconjunction with the patient's clinical presentation,history and other laboratory results. If the results areinconsistent with clinical evidence, additional testing issuggested to confirm the result. Blood Venous blood specimen / Unknown 09/13/2023 7:53 AM EST 09/13/2023 7:53 AM EST us Marilee Gil INTERNATIONAL TAX MANAGER LAB BLOOD ORDERABLES Final Res ult [facility] [address] [place] [address] [phone] * (ABNORMAL) Lipid Panel, Standard (09/13/2023 7:53 AM EST) Triglycerides 122 <150 mg/dL [facility] Comment:Desirable Triglyceri de: less than 150 mg/dLBorderline High Triglyceride 150-199 mg/dLHigh Triglyceride: 200-499 mg/dLVery High Triglyceride: greater than or equal to 5OO mg/dL Cholesterol 149 <200 mg/dL [facility] Comment:Desirable Cholestero l: less than 200 mg/dLBorderline High Cholesterol: 200-239 mg/dLHigh Cholesterol: greater than 239 mg/dL LDL Cholesterol Calculated 97 <100 mg/dL [facility] Comment:Desirable LDL: less than 100 mg/dLNear Optimal/Above Optimal LDL: 110- 129 mg/dLBorderline High LDL: 130-159 mg/dLHigh LDL: 160-189 mg/dLVery High LDL: greater than or equal to 190 mg/dL HDL Cholesterol 28(L) >40 mg/dL [facility] Comment:Desirable HDL: great er than 40 mg/dL Note: This HDL assay may give artificially low results in patients with liver disease. Blood Venous blood specimen / Unknown 09/13/2023 7:53 AM EST 09/13/2023 7:53 AM EST us Marilee Cordero INTERNATIONAL TAX MANAGER LAB BLOOD ORDERABLES Final Res ult [facility] [address] [place] [phone] from Last 3 Months or Most Recently Relevant to Health Maintenance Insurance [facility] D[facility] - HSN PARTIAL (MEDICAID) Care Teams Smt Machine Operator Relationship Specialty Start Date End Date Marilee Cordero FNP [address] [place] [address] PCP - General Family Medicine 03/23/23 Cristo Garcia MD [address] [place] [address] Rheumatology 09/01/24 Doris Candelario [address] [place] [address] Cardiology 09/01/24 Yoselyn Lyons [address] [place] [address] Ophthalmology 09/01/24 Balbir Don 22 [facility] 301 [place] [address] Sleep Medicine 09/01/24 Dr. Ramirez 100 [facility] 200 [place] [address] Nephrology 09/01/24
--- OUTSIDE RECORDS SUMMARY | 2025-03-04 09:33 | XMS_ITS | Clinical Summary ---
Author Organization [facility] Address [address] [address] Phone Care Team Providers Care Pipe Crew Foreman Name Role Phone Marilee Cordero BRANDEN Primary Care Provider [phone] Allergies No known active allergies Medications amLODIPine [...] Hospitalization for CHF exacerbation: Oct 2023 at [facility] Last Assessment & Plan: - Reviewed condition [...] Office Visit [facility] [address] [address] Jostin Ronquillo MD [address] [address] Health Maintenance Due Date Last Done Comments [...] 08/30/2024, , 10/17/2022, Additional history exists Insurance [email or web address] [place] [facility] ([id number]) [employer] Plan ([id number]) Care Teams Pipe Crew Foreman Relationship Specialty Start Date End Date Marilee Cordero FNP [address] [place] [id number] PCP - General 01/08/24
--- OUTSIDE RECORDS SUMMARY | 2025-03-04 09:33 | XMS_ITS | Encounter Summary ---
Author Organization [employer] Address [address] [facility] [address] [place] [address] Care Team Providers Care Hazardous Materials Handler Name Role Phone Marilee Cordero Primary Care Provider [phone] Cristo Garcia MD Unavailable Doris Candelario Unavailable [phone] Yoselyn Lyons Unavailable Unavailable Balbir Don Unavailable Reason for Referral * Consultation (Routine) - Closed Specialty Diagnoses / Procedures Referred By Contzena t Referred To Contact Nephrology Diagnoses Albuminuria Marilee Cordero FNP [address] [place] [address] Phone: tel: fax: Bayron Marshall MD 100 [facility] 200 [place] [address] Phone: tel: fax: Referral ID Status Reason Start Date Expiration Date V isits Requested Visits Authorized [id number] Closed Specialty Services Required 12/29/2023 12/28/2024 1 1 Encounter Details Date Type Department Care Team (Late st Contact Info) Description 12/29/[address] [facility] [address] [place], [place] [phone] Marilee Cordero FNP [address] [place], [place] [phone] Albuminuria (Primary Dx) Social History Tobacco Use [...] Description 03/04/2025 1:00 PM EDT Office Visit [facility] [address] [place] [address] Abi Aden MD [address] [place] [address] 04/28/2025 9:00 AM EDT Office Visit [facility] [address] [place] [address] Marilee Cordero FNP [address] [place] [address] documented as of this encounter Procedures Procedure Name Priority Date/Time Associated Diagnosis Comments AMB REFERRAL TO NEPHROLOGY Routine 04/03/2004 Albuminuria documented in this encounter Results * Referral to Nephrology (04/03/2004) Marilee OTERO OUTPATIENT REFERRAL ORDERABLES Final Result documented in this encounter Visit Diagnoses Diagnosis Albuminuria- Primary Proteinuria documented in this encounter Additional Health Concerns Assessment Noted Time PHQ-9 Depression Total Score: 1 10/17/20 22 10:05 AM EST documented as of this encounter Care Teams Hazardous Materials Handler Relationship Specialty Start Date End Date Marilee Cordero FNP [address] [place] [address] PCP - General Family Medicine 03/23/23 Cristo Garcia MD [address] [place] [address] [address] [place] [address] Rheumatology 09/01/24 Doris Candelario [address] [place] [address] Cardiology 09/01/24 Yoselyn Lyons [address] [place] [address] Ophthalmology 09/01/24 Balbir Don 22 [facility] [address] [place] [address] Sleep Medicine 09/01/24 Dr. Ramirez 100 [facility] 200 [place] [address] Nephrology 09/01/24 documented as of this encounter
--- OUTSIDE RECORDS SUMMARY | 2025-03-04 09:33 | XMS_ITS | Clinical Summary ---
Author Organization [facility] Address [address] [place] [id number] Phone Care Team Providers Care Reception Specialist Name Role Phone Unavailable Primary Care Provider [...] - 02/19/2025 5:05 PM EDT Hospital Encounter [facility] [address] [place] [address] Saavedra, TinDO Yasmin Chang Carlos M, MD Kokosadze, Estate, MD Rasul, Yar M, MD Edema, unspecified type (Primary Dx); Acute midline low back pain with right-sided sciatica; Proteinuria, unspecified type; Respiratory failure, unspecified chronicity, unspecified whether with hypoxia or hypercapnia ([facility] [place], [facility]28[place] Acute pulmonary edema ([facility] [place], [facility]); Hypoxia Discharge Disposition: Home or Self Care from Last 3 Months Surgical History Surgery Date Site/Laterality Comments OTHER SURGICAL HISTORY 07/03/2002 PROCEDURE: HISTORY OTHER; COMMENT: nasal septal reconstruction with laser turbinectomy Medical History Medical History Date Comments HTN (hypertension) 06/04/2012 DX:HTN (hyper tension) DM2 (diabetes mellitus, type 2) ([facility] [place], [facility] V28) 06/04/2012 DX:DM2 (diabetes mellitus, t ype 2) ([facility] Obstructive sleep apnea 06/04/2012 DX:Obstr uctive sleep apnea Psoriatic arthritis ([facility] [place]24, [facility] V28) 06/04/2012 DX:Psoriatic arthritis ([facility]) Hyperlipidemia 06/04/2012 DX:Hyperlipidemi a; COMMENT: IMO [...] Heart attack Other cousins with fa [place]'s 40's Asthma Sister Relation Name Status Comments [...] LIGHT CHAINS Routine 02/16/2025 2:01 PM EDT [place] PROTEIN ELECTROPHORETIC FRACTIONATION & QUANTITATION SERUM Routine [...] of18 resultswithin the time period is included. [facility] Signature Glucose POCT 260(H) 70 - 100 mg/dL 02/19/2025 3:18 PM EDT [facility] Blood Capillary blood specimen / Unknown 02/19/2025 3:18 PM EDT 02/19/2025 3:19 PM EDT us Torres Sanchez MD LAB POINT OF CARE TE ST DOCKED DEVICE UNSOLICITED RESULTS Final Result [facility] [address] [place] [address], * (ABNORMAL) CBC auto differential (02/19/2025 6:01 AM EDT) Only the most recent of5 resultswithin the time period is included. WBC 8.8 4.8 - 10.8 K/mcL LAB HEMETOLOGY METHOD 02/19/2025 6:48 AM EDT [facility] RBC 4.00(L) 4.50 - 5.50 M/mcL LAB HEMETOLOGY METHOD 02/19/2025 6:48 AM EDT [facility] Hemoglobin 11.2(L) 13.5 - 17.5 g/dL LAB HEMETOLOGY METHOD 02/19/2025 6:48 AM EDT [facility] Hematocrit 34.1(L) 42.0 - 54.0 % LAB HEMETOLOGY METHOD 02/19/2025 6:48 AM EDT [facility] MCV 85.0 79.0 - 98.0 FL LAB HEMETOLOGY METHOD 02/19/2025 6:48 AM EDT [facility] MCH 27.9 27.0 - 32.0 pcg LAB HEMETOLOGY METHOD 02/19/2025 6:48 AM EDT [facility] MCHC 32.8 32.0 - 37.0 g/dL LAB HEMETOLOGY METHOD 02/19/2025 6:48 AM EDT [facility] RDW 12.8 11.0 - 15.0 % LAB HEMETOLOGY METHOD 02/19/2025 6:48 AM EDT [facility] Platelets 281 130 - 400 K/mcL LAB HEMETOLOGY METHOD 02/19/2025 6:48 AM EDT [facility] MPV 9.6 7.0 - 11.0 FL LAB HEMETOLOGY METHOD 02/19/2025 6:48 AM [facility] NRBC 0.0 <1.0 % LAB HEMETOLOGY METHOD 02/19/2025 6:48 AM [facility] NRBC Absolute 0.00 <0.10 K/mcL LAB HEMETOLOGY METHOD 02/19/2025 6:48 AM [facility] Neutrophils Relative 79.4 % LAB HEMETOLOGY METHOD 02/19/2025 6:48 AM [facility] Lymphocytes Relative 7.8 % LAB HEMETOLOGY METHOD 02/19/2025 6:48 AM [facility] Monocytes Relative 9.1 % LAB HEMETOLOGY METHOD 02/19/2025 6:48 AM [facility] Eosinophils Relative 2.9 % LAB HEMETOLOGY METHOD 02/19/2025 6:48 AM [facility] Basophils Relative 0.2 % LAB HEMETOLOGY METHOD 02/19/2025 6:48 AM [facility] Immature Granulocytes Relative 0.6 % LAB HEMETOLOGY METHOD 02/19/2025 6:48 AM [facility] Neutrophils Absolute 6.96 1.50 - 7.00 K/mcL LAB HEMETOLOGY METHOD 02/19/2025 6:48 AM [facility] Lymphocytes Absolute 0.68(L) 1.00 - 5.00 K/mcL LAB HEMETOLOGY METHOD 02/19/2025 6:48 AM [facility] Monocytes Absolute 0.80 0.20 - 1.00 K/mcL LAB HEMETOLOGY METHOD 02/19/2025 6:48 AM [facility] Eosinophils Absolute 0.25 0.00 - 0.50 K/mcL LAB HEMETOLOGY METHOD 02/19/2025 6:48 AM [facility] Basophils Absolute 0.02 0.00 - 0.20 K/mcL LAB HEMETOLOGY METHOD 02/19/2025 6:48 AM EDT [facility] Immature Granulocytes Absolute 0.05(H) 0.00 - 0.03 K/mcL LAB HEMETOLOGY METHOD 02/19/2025 6:48 AM EDT [facility] Blood Venous blood specimen / Unknown Venipuncture / Unknown 02/19/2025 6:01 AM EDT 02/19/2025 6:18 AM EDT us Torres Sanchez MD LAB BLOOD ORDERABLES Final Resul t [facility] [address] [place] [address], [place] [phone] * (ABNORMAL) Basic metabolic panel (02/19/2025 6:01 AM EDT) Only the most recent of5 resultswithin the time period is included. Sodium 136 133 - 145 mmol/L LAB CHEMISTRY METHOD 02/19/2025 7:13 AM [facility] Potassium 3.6 3.5 - 5.5 mmol/L LAB CHEMISTRY METHOD 02/19/2025 7:13 AM [facility] Chloride 98 96 - 110 mmol/L LAB CHEMISTRY METHOD 02/19/2025 7:13 AM [facility] CO2 35(H) 21 - 32 mmol/L LAB CHEMISTRY METHOD 02/19/2025 7:13 AM [facility] Anion Gap 3 3 - 11 LAB CHEMISTRY METHOD 02/19/2025 7:13 AM [facility] Glucose 258(H) 70 - 100 mg/dL LAB CHEMISTRY METHOD 02/19/2025 7:13 AM [facility] BUN 19 5 - 25 mg/dL LAB CHEMISTRY METHOD 02/19/2025 7:13 AM EDT [facility] Creatinine 1.08 0.70 - 1.30 mg/dL LAB CHEMISTRY METHOD 02/19/2025 7:13 AM EDT [facility] eGFR 82 >=60 mL/min/1. 73m2 LAB CHEMISTRY METHOD 02/19/2025 7:13 AM EDT [facility] Comment:Calculation based on the??Chronic Kidney Disease Epidemiology Collaboration (CKD-EPI) equation refit??without adjustment for race. BUN/Creatinine Ratio 17.6 LAB CHEMISTRY METHOD 02/19/2025 7:13 AM EDT [facility] Calcium 8.2(L) 8.5 - 10.5 mg/dL LAB CHEMISTRY METHOD 02/19/2025 7:13 AM EDT [facility] Blood Venous blood specimen / Unknown Venipuncture / Unknown 02/19/2025 6:01 AM EDT 02/19/2025 6:17 AM EDT us Torres Sanchez MD LAB BLOOD ORDERABLES Final Resul t Performing Organization Address City/[facility]/ZIP Co de Phone Number [facility] [address] [place] [address], [place] [phone] * (ABNORMAL) MRSA molecular study (02/18/2025 10:18 AM EDT) MRSA Screen PCR Detected (A) Not Detected LAB MICROBIOLOGY METHOD 02/18/2025 11:35 AM EDT [facility] Swab Both anterior nares / Unknown Non-blood Collection / Unknown 02/18/2025 10:18 AM EDT 02/18/2025 10:22 AM EDT us Torres Sanchez MD LAB MICROBIOLOGY - GENERAL ORDER HAN Final Result Performing Organization Address [facility]/ZIP Co de Phone Number [facility] [address] [place] [address], [place] [phone] * (ABNORMAL) TRANSTHORACIC ECHOCARDIOGRAM (TTE) COMPLETE W/ [...] 3.8 cm2 CV PACS Left Atrium Minor [place] 5.8 cm CV PACS Left Atrium Major [place] 6.3 cm CV PACS LA Area Sys [...] LAB HEMETOLOGY METHOD 02/17/2025 6:15 PM EDT [facility] Hematocrit 36.9(L) 42.0 - 54.0 % LAB HEMETOLOGY METHOD 02/17/2025 6:15 PM EDT [facility] Blood Venous blood specimen / Unknown Venipuncture / Unknown 02/17/2025 5:45 PM EDT 02/17/2025 5:56 PM EDT Torres Sanchez MD LAB BLOOD ORDERABLES Final Resul t [facility] [address] [place] [address], [place] [phone] * (ABNORMAL) Prothrombin time with INR (02/17/2025 5:45 PM EDT) Only the most recent of2 resultswithin the time period is included. Protime 16.7(H) 10.6 - 13.9 sec LAB COAGULATION METHOD 02/17/2025 6:05 PM EDT [facility] INR 1.3 LAB COAGULATION METHOD 02/17/2025 6:05 PM EDT [facility] Blood Venous blood specimen / Unknown Venipuncture / Unknown 02/17/2025 5:45 PM EDT 02/17/2025 5:56 PM EDT Torres Sanchez MD LAB BLOOD ORDERABLES Final Resul t [facility] [address] [place] [address], [place] [phone] * (ABNORMAL) Protein and creatinine with ratio, urine (02/17/2025 12:45 PM EDT) Protein, Urine 141 mg/dL LAB CHEMISTRY METHOD 02/18/2025 7:21 AM EDT [facility] Prot/Creat, Ur 6.41(H) <=0.20 mg/mg creat LAB CHEMISTRY METHOD 02/18/2025 7:21 AM EDT [facility] Creatinine, Urine 22.0 mg/dL LAB CHEMISTRY METHOD 02/18/2025 7:21 AM EDT [facility] Urine Urine specimen from urethra / Unknown Non-blood Collection / Unknown 02/17/2025 12:45 PM EDT 02/18/2025 7:02 AM EDT Ish David MD LAB URINE ORDERABLES Final Res ult Performing Organization Address City/[facility]/ZIP Co de Phone Number [facility] [address] [place] [address], [place] [phone] * Protein, urine, random (02/17/2025 12:45 PM EDT) Protein, Urine 144 mg/dL LAB CHEMISTRY METHOD 02/17/2025 2:48 PM EDT [facility] Urine Urine specimen obtained by clean catch procedure / Unknown Non-blood Collection / Unknown 02/17/2025 12:45 PM EDT 02/17/2025 1:36 PM EDT Felicia Morrell NP LAB URINE ORDERABLES Final Res ult Performing Organization Address City/[facility]/ZIP Co de Phone Number [facility] [address] [place] [address], [place] [phone] * Yellow urine no additive (02/17/2025 12:42 PM EDT) Extra Tube Hold for add-ons. 02/17/2025 3:01 PM EDT [facility] Comment:Auto resulted. Urine Urine specimen obtained by clean catch procedure / Unknown 02/17/2025 12:42 PM EDT 02/17/2025 1:38 PM EDT Torres Sanchez MD LAB URINE ORDERABLES Final Resul t Performing Organization Address [facility] Co de Phone Number [facility] [address] [place] [address], [place] [phone] * (ABNORMAL) Anti-Xa - Every 6 Hours (02/17/2025 9:57 AM EDT) Only the most recent of7 resultswithin the time period is included. Heparin Anti-Xa <0.04(L) 0.30 - 0.70 I Unit/mL LAB COAGULATION METHOD 02/17/2025 10:28 AM EDT [facility] Blood Venous blood specimen / Unknown Venipuncture / Unknown 02/17/2025 9:57 AM EDT 02/17/2025 10:04 AM EDT Narrative [facility] - 02/17/2025 10:28 AM EDT Therapeutic range listed is for Unfractionated Heparin. LMW Heparin therapeutic range: 0.50-1.20 IU/mL Elizabeth Lora MD LAB BLOOD ORDERABLES Final R esult Performing Organization Address City/[facility]/ZIP Co de Phone Number [facility] [address] [place] [address], [place] [phone] * (ABNORMAL) B-type natriuretic peptide (02/17/2025 9:56 AM EDT) BNP 656(H) <=100 pcg/mL LAB CHEMISTRY METHOD 02/17/2025 10:42 AM EDT [facility] Blood Venous blood specimen / Unknown Venipuncture / Unknown 02/17/2025 9:56 AM EDT 02/17/2025 10:04 AM EDT us Torres Sanchez MD LAB BLOOD ORDERABLES Final Resul t [facility]) [facility] [address] [place] [address], [place] [phone] * (ABNORMAL) Chicken-lambda free light chains, quantitative (02/16/2025 2:01 PM EDT) Pathologist [facility] Chicken Free Light Chain 6.10(H) 0.33 - 1.94 mg/dL 02/19/2025 10:46 AM EDT [facility] Lambda Free Light Chain 3.64(H) 0.57 - 2.63 mg/dL 02/19/2025 10:46 AM EDT [facility] Chicken/Lambda FLC Ratio 1.68(H) 0.26 - 1.65 02/19/2025 10:46 AM EDT [facility] Comment: Test performed at [facility], [email or web address] , [place], [place] ??[address] ? [phone] Sarah Gregg MD, PhD - Metallurgical Or Materials Technician Blood Venous blood specimen / Unknown Venipuncture / Unknown 02/16/2025 2:01 PM EDT 02/16/2025 2:05 PM EDT us Ish David MD LAB BLOOD ORDERABLES Final Res ult [facility] [address] [email or web address] [address] * Hepatitis C antibody (02/16/2025 2:00 PM EDT) Hepatitis C Antibody Negative Negative LAB CHEMISTRY METHOD 02/16/2025 5:37 PM EDT [facility] Blood Venous blood specimen / Unknown Venipuncture / Unknown 02/16/2025 2:00 PM EDT 02/16/2025 2:05 PM EDT Ish David MD LAB BLOOD ORDERABLES Final Res ult Performing Organization Address [facility]/ZIP Co de Phone Number [facility] [address] [place] [address], [place] [phone] * Hepatitis B surface antigen with reflex to confirmation (02/16/2025 2:00 PM EDT) Pathologist [facility] Hepatitis B Surface Ag Negative Negative LAB CHEMISTRY METHOD 02/16/2025 5:34 PM EDT [facility] Blood Venous blood specimen / Unknown Venipuncture / Unknown 02/16/2025 2:00 PM EDT 02/16/2025 2:05 PM EDT Narrative [facility] - 02/16/2025 5:34 PM EDT Over the counter supplements containing high doses of biotin may interfere with this assay. ??If interference is suspected, patients shoud be retested after refraining from biotin supplements for 72 hours. us Ish David MD LAB BLOOD ORDERABLES Final Res ult [facility] [address] [place] [address], [place] [phone] * PATHOLOGIST REVIEW PROTEIN ELECTROPHORESIS (02/16/2025 2:00 PM EDT) Pathologist Interpretation 02/18/2025 5:34 PM EDT [facility] Blood Venous blood specimen / Unknown Venipuncture / Unknown 02/16/2025 2:00 PM EDT 02/16/2025 2:05 PM EDT us Ish David MD LAB BLOOD ORDERABLES Final Res ult Performing Organization Address [facility] de Phone Number [facility] [address] [place] [address], [place] [phone] * Anti-neutrophilic cytoplasmic antibody (02/16/2025 2:00 PM EDT) Pathologist [facility] Myeloperoxidase Ab Negative Negative LAB CHEMISTRY METHOD 02/19/2025 12:50 PM EDT [facility] Myeloperoxidase Ab, Quant 2 <=20 units LAB CHEMISTRY METHOD 02/19/2025 12:50 PM EDT [facility] Proteinase-3 Ab Negative Negative LAB CHEMISTRY METHOD 02/19/2025 12:50 PM EDT [facility] Proteinase-3 Ab Quant 3 <=20 units LAB CHEMISTRY METHOD 02/19/2025 12:50 PM EDT [facility] Blood Venous blood specimen / Unknown Venipuncture / Unknown 02/16/2025 2:00 PM EDT 02/16/2025 2:05 PM EDT us Ish David MD LAB BLOOD ORDERABLES Final Res ult Performing Organization Address [facility]/ZIP Co de Phone Number [facility] [address] [place] [address], [place] [phone] * C3 complement (02/16/2025 2:00 PM EDT) C3 Complement 158 88 - 201 mg/dL LAB CHEMISTRY METHOD 02/16/2025 2:36 PM EDT [facility] Blood Venous blood specimen / Unknown Venipuncture / Unknown 02/16/2025 2:00 PM EDT 02/16/2025 2:05 PM EDT Ish David MD LAB BLOOD ORDERABLES Final Res ult Performing Organization Address City/[facility]/ZIP Co de Phone Number [facility] [address] [place] [address], [place] [phone] * C4 complement (02/16/2025 2:00 PM EDT) [facility] C4 Complement 28 16 - 47 mg/dL LAB CHEMISTRY METHOD 02/16/2025 2:36 PM EDT [facility] Blood Venous blood specimen / Unknown Venipuncture / Unknown 02/16/2025 2:00 PM EDT 02/16/2025 2:05 PM EDT Ish David MD LAB BLOOD ORDERABLES Final Res ult Performing Organization Address [facility]/ZIP Co de Phone Number [facility] [address] [place] [address], [place] [phone] * (ABNORMAL) Protein electrophoresis, serum (02/16/2025 2:00 PM EDT) [facility] Total Protein 5.8(L) 6.0 - 8.0 g/dL LAB CHEMISTRY METHOD 02/18/2025 5:34 PM EDT [facility] Albumin, Serum 2.4(L) 2.9 - 4.1 g/dL LAB CHEMISTRY METHOD 02/18/2025 5:34 PM EDT [facility] Alpha 1 Globulin (g/dL) 0.5 0.1 - 0.5 g/dL LAB CHEMISTRY METHOD 02/18/2025 5:34 PM EDT [facility] Alpha 2 Globulin (g/dL) 1.1 0.7 - 1.5 g/dL LAB CHEMISTRY METHOD 02/18/2025 5:34 PM EDT [facility] Beta (g/dL) 1.0 0.7 - 1.5 g/dL LAB CHEMISTRY METHOD 02/18/2025 5:34 PM EDT [facility] Gamma Globulin (g/dL) 0.7 0.7 - 1.9 g/dL LAB CHEMISTRY METHOD 02/18/2025 5:34 PM EDT [facility] SPEP Interpretation No M-Abdiaziz seen. Hypoalbuminem ia, suggestive of malnutrition, decreased hepatic synthesis or renal/GI loss ? LAB CHEMISTRY METHOD 02/18/2025 5:34 PM EDT [facility] Blood Venous blood specimen / Unknown Venipuncture / Unknown 02/16/2025 2:00 PM EDT 02/16/2025 2:05 PM EDT us Ish David MD LAB BLOOD ORDERABLES Final Res ult Performing Organization Address [facility]/ZIP Co de Phone Number [facility] [address] [place] [address], [place] [phone] * (ABNORMAL) Protein, total (02/16/2025 2:00 PM EDT) Total Protein 5.8(L) 6.0 - 8.0 g/dL LAB CHEMISTRY METHOD 02/16/2025 2:37 PM EDT [facility] Blood Venous blood specimen / Unknown Venipuncture / Unknown 02/16/2025 2:00 PM EDT 02/16/2025 2:05 PM EDT us Ish David MD LAB BLOOD ORDERABLES Final Res ult [facility] [address] [place] [address], [place] [phone] * MR Angio Abdomen wo and w [...] by: Poppy Felix MD on 02/16/2025 15:27:47 [facility] PROCEDURES Final Res ult * (ABNORMAL) CBC - Every 3 Days (02/16/2025 3:05 AM EDT) WBC 12.3(H) 4.8 - 10.8 K/mcL LAB HEMETOLOGY METHOD 02/16/2025 3:15 AM EDT [facility] RBC 3.80(L) 4.50 - 5.50 M/mcL LAB HEMETOLOGY METHOD 02/16/2025 3:15 AM EDT [facility] Hemoglobin 11.0(L) 13.5 - 17.5 g/dL LAB HEMETOLOGY METHOD 02/16/2025 3:15 AM EDT [facility] Hematocrit 32.3(L) 42.0 - 54.0 % LAB HEMETOLOGY METHOD 02/16/2025 3:15 AM EDT [facility] MCV 84.1 79.0 - 98.0 FL LAB HEMETOLOGY METHOD 02/16/2025 3:15 AM EDT [facility] MCH 28.6 27.0 - 32.0 pcg LAB HEMETOLOGY METHOD 02/16/2025 3:15 AM EDT [facility] MCHC 34.1 32.0 - 37.0 g/dL LAB HEMETOLOGY METHOD 02/16/2025 3:15 AM T [facility] RDW 12.8 11.0 - 15.0 % LAB HEMETOLOGY METHOD 02/16/2025 3:15 AM EDT [facility] Platelets 239 130 - 400 K/mcL LAB HEMETOLOGY METHOD 02/16/2025 3:15 AM EDT [facility] MPV 9.6 7.0 - 11.0 FL LAB HEMETOLOGY METHOD 02/16/2025 3:15 AM EDT [facility] NRBC 0.0 <1.0 % LAB HEMETOLOGY METHOD 02/16/2025 3:15 AM EDT [facility] NRBC Absolute 0.00 <0.10 K/mcL LAB HEMETOLOGY METHOD 02/16/2025 3:15 AM EDT [facility] Blood Venous blood specimen / Unknown Venipuncture / Unknown 02/16/2025 3:05 AM EDT 02/16/2025 3:11 AM EDT us Sunitha DORSEY LAB BLOOD ORDERABLES Final Resul t [facility] [address] [place] [address], [place] [phone] * Magnesium (02/16/2025 3:05 AM EDT) Only the most recent of2 resultswithin the time period is included. Pathologist [facility] Magnesium 2.2 1.9 - 2.6 mg/dL LAB CHEMISTRY METHOD 02/16/2025 3:46 AM EDT [facility] Blood Venous blood specimen / Unknown Venipuncture / Unknown 02/16/2025 3:05 AM EDT 02/16/2025 3:11 AM EDT Neo Hoffman MD LAB BLOOD ORDERABLES Final Re sult [facility] [address] [place] [address], * Activated Partial Thromboplastin Time - STAT (02/15/2025 7:48 PM EDT) [facility] aPTT 30.4 24.1 - 39.3 sec LAB COAGULATION METHOD 02/15/2025 9:32 PM EDT [facility] Blood Venous blood specimen / Unknown Venipuncture / Unknown 02/15/2025 7:48 PM EDT 02/15/2025 8:05 PM EDT Sunitha DORSEY LAB BLOOD ORDERABLES Final Resul t [facility] [address] [place] [address], * (ABNORMAL) D-Dimer (02/15/2025 7:48 PM EDT) [facility] D-Dimer, Quant (D-DU) 525(H) <=230 ng/mL DDU LAB COAGULATION METHOD 02/15/2025 8:23 PM EDT [facility] Blood Venous blood specimen / Unknown Venipuncture / Unknown 02/15/2025 7:48 PM EDT 02/15/2025 8:05 PM EDT Narrative [facility] - 02/15/2025 8:23 PM EDT D-Dimer <230 ng/mL (D-Dimer units) is the threshold for exclusion of DVT/PE. D-Dimer may be elevated in: Critically ill, severely infected, trauma patients, DIC, acute CVA, acute ME, unstable angina, AF, old age, , and smoking. D-Dimer may be decreased with: Initiation of heparin therapy and oral anticoagulants. us Felicia Morrell SQE LAB BLOOD ORDERABLES Final Res ult [facility] [address] [place] [address], [place] [phone] * CT Angio Chest/Abdomen/Pelvis wo and/or w [...] and bilateral inguinal lymphadenopathy, nonspecific. Telerad WILLIAN ([id number]) -------- FINAL REPORT -------- Dictated By: Parris Gardner Dictated Date: 02/15/2025 14:47 ET Assigned Physician: Parris Gardner Reviewed and Electronically Signed By: Parris Gardner Signed Date: 02/15/2025 15:01 ET Workstation ID: [id number] Transcribed By: Self Edit Transcribed Date: 02/15/2025 [...] the thorax were obtained. DLP: 2436.00 mGy/cm [employer] VCT Iterative reconstruction technique Findings: Precontrast images [...] throughthe thorax were obtained. DLP: 2436.00 mGy/cm [employer] VCT Iterative reconstruction technique Findings: Precontrast images [...] retroperitoneal and bilateral inguinallymphadenopathy, nonspecific. Telerad WILLIAN ([id number]) -------- FINAL REPORT -------- Dictated By: Parris Gardner Dictated Date: 02/15/2025 14:47 ET Assigned Physician: Parris Gardner Reviewed and Electronically Signed By: Parris Gardner Signed Date: 02/15/2025 15:01 ET Workstation ID: [id number] Transcribed By: Self Edit Transcribed Date: 02/15/2025 14:47 ET us Zaida Saavedra DO IMG CT PROCEDURES Final R esult * XR Lumbar Spine 2-3 Views (02/15/2025 1:53 PM EDT) Anatomical Region Laterality Modality Spine, L-spine Radiographic Aleida ging 02/15/2025 1:55 PM EDT Impressions 02/15/2025 1:56 PM EDT Impression: No evidence of lumbar spine fracture or subluxation. Telerad PA ([id number]) -------- FINAL REPORT -------- Dictated By: Parris Gardner Dictated Date: 02/15/2025 13:55 ET Assigned Physician: Parris Gardner Reviewed and Electronically Signed By: Parris Gardner Signed Date: 02/15/2025 13:56 ET Workstation ID: [id number] Transcribed By: Self Edit Transcribed Date: 02/15/2025 [...] lumbar spine fracture or subluxation. Telerad PA ([id number]) -------- FINAL REPORT -------- Dictated By: Parris Gardner Dictated Date: 02/15/2025 13:55 ET Assigned Physician: Parris Gardner Reviewed and Electronically Signed By: Parris Gardner Signed Date: 02/15/2025 13:56 ET Workstation ID: [id number] Transcribed By: Self Edit Transcribed Date: 02/15/2025 13:55 ET Zaida Saavedra DO IMG XR PROCEDURES Final R esult * XR Chest 2 Views (02/15/2025 1:53 PM EDT) Anatomical Region Laterality Modality Body Radiographic Aleida ging 02/15/2025 1:57 PM EDT Impressions 02/15/2025 1:58 PM EDT Impression: Congestive heart failure. Telerad WILLIAN ([id number]) -------- FINAL REPORT -------- Dictated By: Parris Gardner Dictated Date: 02/15/2025 13:57 ET Assigned Physician: Parris Gardner Reviewed and Electronically Signed By: Parris Gardner Signed Date: 02/15/2025 13:58 ET Workstation ID: [id number] Transcribed By: Self Edit Transcribed Date: 02/15/2025 [...] IMPRESSION: Impression: Congestive heart failure. Teleliz DORSEY ([id number]) -------- FINAL REPORT -------- Dictated By: Parris Gardner Dictated Date: 02/15/2025 13:57 ET Assigned Physician: Parris Gardner Reviewed and Electronically Signed By: Parris Gardner Signed Date: 02/15/2025 13:58 ET Workstation ID: [id number] Transcribed By: Self Edit Transcribed Date: 02/15/2025 13:57 ET us Zaida Saavedra DO IMG XR PROCEDURES Final R esult * Vascular US Duplex Lower Extremity Venous Right (02/15/2025 1:39 PM EDT) Anatomical Region Laterality Modality Vascular, Abdomen Ultrasound 02/15/2025 1:41 PM EDT Impressions 02/15/2025 1:42 PM EDT Impression: No evidence of deep vein thrombosis in the right femoral-popliteal venous segment. [employer] WILLIAN ([id number]) -------- FINAL REPORT -------- Dictated By: Parris Gardner Dictated Date: 02/15/2025 13:41 ET Assigned Physician: Parris Gardner Reviewed and Electronically Signed By: Parris Gardner Signed Date: 02/15/2025 13:42 ET Workstation ID: [id number] Transcribed By: Self Edit Transcribed Date: 02/15/2025 [...] in the right femoral-popliteal venoussegment. [employer] WILLIAN ([id number]) -------- FINAL REPORT -------- Dictated By: Parris Gardner Dictated Date: 02/15/2025 13:41 ET Assigned Physician: Parris Gardner Reviewed and Electronically Signed By: Parris Gardner Signed Date: 02/15/2025 13:42 ET Workstation ID: [id number] Transcribed By: Self Edit Transcribed Date: 02/15/2025 13:41 ET Zaida Saavedra DO CV VASCULAR PROCEDURES Fi nal Result * Lactate (02/15/2025 1:00 PM EDT) [facility] Lactate 1.6 0.4 - 2.0 mmol/L LAB CHEMISTRY METHOD 02/15/2025 2:05 PM EDT [facility] Blood Venous blood specimen / Unknown Venipuncture / Unknown 02/15/2025 1:00 PM EDT 02/15/2025 1:24 PM EDT [employer] Leonard Saavedra LAB BLOOD ORDERABLES Hillary l Result Performing Organization Address [facility]/ZIP Co de Phone Number [facility] [address] [place] [id number], [place] [phone] * Blood culture (02/15/2025 12:59 PM EDT) Only the most recent of2 resultswithin the time period is included. [facility] Culture, Blood No growth at 5 days 02/20/2025 2:01 PM EDT [facility] Blood Venous blood specimen / Unknown Venipuncture / Unknown 02/15/2025 12:59 PM EDT 02/15/2025 1:24 PM EDT [employer] Leonard Saavedra LAB MICROBIOLOGY - GENERA L ORDERABLES Final Result Performing Organization Address City/[facility]/ZIP Co de Phone Number [facility] [address] [place] [address], [place] [phone] * Troponin I high sensitivity (02/15/2025 12:51 PM EDT) Only the most recent of2 resultswithin the time period is included. [facility] High Sensitivity Troponin I 48 <=79 ng/L LAB CHEMISTRY METHOD 02/15/2025 2:59 PM EDT [facility] Blood Venous blood specimen / Unknown 02/15/2025 12:51 PM EDT 02/15/2025 2:45 PM EDT Narrative [facility] - 02/15/2025 2:59 PM EDT High levels of biotin in samples may falsely decrease hsTroponin values. ??Use caution when interpreting hsTroponin results in patients taking biotin who exhibit renal impairment (eGFR <60) or in patients taking more than 20 mg/day of biotin. Zaida Saavedra DO LAB BLOOD ORDERABLES Hillary l Result [facility] [address] [place] [address], [place] [phone] * ECG 12 lead (02/15/2025 12:38 PM EDT) [facility] Ventricular Rate ECG 87 BPM GEMUSE Atrial Rate 87 BPM GEMUSE P-R Interval 144 ms GEMUSE QRS Duration 86 ms GEMUSE Q-T Interval 382 ms GEMUSE QTc 459 ms GEMUSE P Wave [place] 48 degrees GEMUSE R [place] 24 degrees GEMUSE T [place] 66 degrees GEMUSE ECG Interpretation Normal sinus [...] and culture (02/15/2025 12:35 PM EDT) Specific [place] Urine 1.032(H) 1.003 - 1.030 LAB URINALYSIS - AUTOMATED METHOD 02/15/2025 1:10 PM [facility] pH, Urine 5.5 5.0 - 8.0 pH LAB URINALYSIS - AUTOMATED METHOD 02/15/2025 1:10 PM [facility] Leukocytes, Urine Negative Negative LAB URINALYSIS - AUTOMATED METHOD 02/15/2025 1:10 PM [facility] Nitrite, Urine Negative Negative LAB URINALYSIS - AUTOMATED METHOD 02/15/2025 1:10 PM [facility] Protein, Urine >=1000(A) <=Trace mg/dL LAB URINALYSIS - AUTOMATED METHOD 02/15/2025 1:10 PM [facility] Glucose, Urine >=1000(A) Negative mg/dL LAB URINALYSIS - AUTOMATED METHOD 02/15/2025 1:10 PM [facility] Ketones, Urine Trace(A) Negative mg/dL LAB URINALYSIS - AUTOMATED METHOD 02/15/2025 1:10 PM [facility] Urobilinogen , Urine 1.0 0.2 - 1.0 mg/dL LAB URINALYSIS - AUTOMATED METHOD 02/15/2025 1:10 PM [facility] Bilirubin, Urine Small(A) Negative LAB URINALYSIS - AUTOMATED METHOD 02/15/2025 1:10 PM [facility] Blood, Urine Moderate(A) Negative LAB URINALYSIS - AUTOMATED METHOD 02/15/2025 1:10 PM [facility] RBC, Urine 13.2(H) 0 - 4 /HPF LAB URINALYSIS - AUTOMATED METHOD 02/15/2025 1:10 PM EDT [facility] WBC, Urine 3.2 0 - 4 /HPF LAB URINALYSIS - AUTOMATED METHOD 02/15/2025 1:10 PM EDT [facility] Squamous Epithelial, Urine 30 0 - 60 /LPF LAB URINALYSIS - AUTOMATED METHOD 02/15/2025 1:10 PM EDT [facility] Bacteria, Urine Negative Negative /HPF LAB URINALYSIS - AUTOMATED METHOD 02/15/2025 1:10 PM EDT [facility] Hyaline Casts, Urine 26.5(H) 0 - 3 /LPF LAB URINALYSIS - AUTOMATED METHOD 02/15/2025 1:10 PM EDT [facility] Urine Urine specimen obtained by clean catch procedure / Unknown Non-blood Collection / Unknown 02/15/2025 12:35 PM EDT 02/15/2025 12:53 PM EDT us [facility] Maxime Saavedra DO LAB URINE ORDERABLES Hillary l Result [facility] [address] [place] [address], * Respiratory virus panel molecular study (02/15/2025 12:35 PM EDT) Pathologist [facility] Adenovirus Detection by PCR Not Detected Not Detected LAB MICROBIOLOGY METHOD 02/15/2025 1:44 PM EDT [facility] Influenza A PCR Not Detected Not Detected LAB MICROBIOLOGY METHOD 02/15/2025 1:44 PM EDT [facility] Influenza B PCR Not Detected Not Detected LAB MICROBIOLOGY METHOD 02/15/2025 1:44 PM EDT [facility] Coronavirus 229E Not Detected Not Detected LAB MICROBIOLOGY METHOD 02/15/2025 1:44 PM EDT [facility] Coronavirus HKU1 Not Detected Not Detected LAB MICROBIOLOGY METHOD 02/15/2025 1:44 PM EDT [facility] Coronavirus OC43 Not Detected Not Detected LAB MICROBIOLOGY METHOD 02/15/2025 1:44 PM EDT [facility] Coronavirus NL63 Not Detected Not Detected LAB MICROBIOLOGY METHOD 02/15/2025 1:44 PM EDT [facility] Parainfluenza Virus 1 Not Detected Not Detected LAB MICROBIOLOGY METHOD 02/15/2025 1:44 PM EDT [facility] Parainfluenza Virus 2 Not Detected Not Detected LAB MICROBIOLOGY METHOD 02/15/2025 1:44 PM EDT [facility] Parainfluenza Virus 3 Not Detected Not Detected LAB MICROBIOLOGY METHOD 02/15/2025 1:44 PM EDT [facility] Parainfluenza Virus 4 Not Detected Not Detected LAB MICROBIOLOGY METHOD 02/15/2025 1:44 PM EDT [facility] RSV PCR Not Detected Not Detected LAB MICROBIOLOGY METHOD 02/15/2025 1:44 PM EDT [facility] Human Metapneumovirus A and B Not Detected Not Detected LAB MICROBIOLOGY METHOD 02/15/2025 1:44 PM EDT [facility] Rhinovirus/Entero virus Not Detected Not Detected LAB MICROBIOLOGY METHOD 02/15/2025 1:44 PM EDT [facility] Bordetella pertussis Not Detected Not Detected LAB MICROBIOLOGY METHOD 02/15/2025 1:44 PM EDT [facility] Bordetella parapertussis Not Detected Not Detected LAB MICROBIOLOGY METHOD 02/15/2025 1:44 PM EDT [facility] Mycoplasma pneumo by PCR Not Detected Not Detected LAB MICROBIOLOGY METHOD 02/15/2025 1:44 PM EDT [facility] Chlamydia pneumoniae Not Detected Not Detected LAB MICROBIOLOGY METHOD 02/15/2025 1:44 PM EDT [facility] SARS COV-2 Not Detected Not Detected LAB MICROBIOLOGY METHOD 02/15/2025 1:44 PM EDT [facility] Swab Nasopharyngeal structure / Unknown Non-blood Collection / Unknown 02/15/2025 12:35 PM EDT 02/15/2025 12:53 PM EDT Narrative [facility] - 02/15/2025 1:44 PM EDT Testing was performed using the [employer] Respiratory Pathogen PCR Assay. All results must [...] that are below the limit of detection. [facility] MICROBIOLOGY - GENERA L ORDERABLES Final Result Performing Organization Address [facility]/ZIP Co de Phone Number [facility] [address] [place] [address], [place] [phone] * Moreno urine culture tube (02/15/2025 12:35 PM EDT) Pathologist [facility] Extra Tube Hold for add-ons. 02/15/2025 2:01 PM EDT [facility] Comment:Auto resulted. Urine Urine specimen obtained by clean catch procedure / Unknown Non-blood Collection / Unknown 02/15/2025 12:35 PM EDT 02/15/2025 12:53 PM EDT [facility] Leonard Saavedra LAB URINE ORDERABLES Hillary l Result [facility] [address] [place] [address], [place] [phone] * Creatine kinase (02/15/2025 12:23 PM EDT) Total CK 169 22 - 269 unit/L LAB CHEMISTRY METHOD 02/15/2025 2:28 PM EDT [facility] Blood Venous blood specimen / Unknown Venipuncture / Unknown 02/15/2025 12:23 PM EDT 02/15/2025 12:54 PM EDT Zaida Saavedra DO LAB BLOOD ORDERABLES Hillary l Result [facility] [address] [place] [address], [place] [phone] * (ABNORMAL) Hepatic function panel (02/15/2025 12:23 PM EDT) Total Protein 5.7(L) 6.0 - 8.0 g/dL LAB CHEMISTRY METHOD 02/15/2025 1:50 PM EDT [facility] Albumin 1.9(L) 3.2 - 5.0 g/dL LAB CHEMISTRY METHOD 02/15/2025 1:50 PM EDT [facility] Total Bilirubin 1.3 0.0 - 1.4 mg/dL LAB CHEMISTRY METHOD 02/15/2025 1:50 PM EDT [facility] Bilirubin, Direct 0.2 0.0 - 0.3 mg/dL LAB CHEMISTRY METHOD 02/15/2025 1:50 PM EDT [facility] Comment:Hemolysis present Bilirubin, Indirect 1.1 0.0 - 1.1 mg/dL LAB CHEMISTRY METHOD 02/15/2025 1:50 PM EDT [facility] ALT (SGPT) 18 10 - 60 unit/L LAB CHEMISTRY METHOD 02/15/2025 1:50 PM T [facility] AST (SGOT) 33 10 - 42 unit/L LAB CHEMISTRY METHOD 02/15/2025 1:50 PM EDT [facility] Comment:Hemolysis present Alkaline Phosphatase 130(H) 42 - 121 unit/L LAB CHEMISTRY METHOD 02/15/2025 1:50 PM EDT [facility] Blood Venous blood specimen / Unknown Venipuncture / Unknown 02/15/2025 12:23 PM EDT 02/15/2025 12:54 PM EDT Zaida Saavedra DO LAB BLOOD ORDERABLES Hillary thomas Result [facility] [address] [place] [address], [place] [phone] from Last 3 Months Additional Health Concerns Infection Onset Date Last Indicated MRSA 02/18/2025 02/18/2025 Insurance [facility] [employer] PLANS Advance Directives * Full Code - [...]
--- OUTSIDE RECORDS SUMMARY | 2025-03-04 09:33 | XMS_ITS | Continuity of Care Document ---
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 Role Phone Unavailable Unavailable Unavailable Procedures Procedure Date Psychotherapy, 30 Minutes With Patient S Psych Dx Eval Psychotherapy, 30 Minutes With Patient A Advance Directives Directive Yes / No Effective Date File Name No Information Encounters Encounter Description Practice Location Reason(s) For Visit Diagnoses Date Provider Providers Copied on Encounter Psychotherap y, 30 Minutes With Patient [facility], [address] [place] [address], tel:[phone] [facility] Behavioral Health Individual Therapy (chief complaint) Cannabis use, unspecified, uncomplicatedC ocaine use, unspecified, uncomplicatedM ajor depressive disorder, recurrent, mildPost-traum atic stress disorder, unspecified Sep-0 8 No Information Psych Dx Eval [facility], [address] [place] [address], [facility], tel:[phone] [facility] Behavioral Health Initial Assessment (chief complaint) Major depressive disorder, recurrent, mildPost-traum atic stress disorder, unspecifiedCoc norman use, unspecified, uncomplicatedC annabis use, unspecified, uncomplicated May- 8 No Information Psychotherap y, 30 Minutes With Patient [facility], [address] [place] [address], tel:[phone] [facility] Behavioral Health depression (chief complaint) Major depressive disorder, recurrent, mildPost-traum atic stress disorder, unspecified May-2 2 8 No Information Family History Family Member Type Diagnosis Age At Onset No Information Payers Payer name Insurance type Covered republican ID Authoriza michael(s) BRII Alonso [id number] Social History Type Description Quantity Date Captured [...]
== END 2025-03-04 09:50 | disposition home or self-care (01) ==
LOC: HO.RHE 08:56
PROVIDERS: PCP Registered Nurse; Visit Provider Student in an Organized Health Care Education/Training Program
DX: L40.50 Arthropathic psoriasis, unspecified (principal); Z79.620 Long term (current) use of immunosuppressive biologic
CPT/HCPCS: 99215; G2211

== ENCOUNTER → 2025-03-04 08:55 | Outpatient (BNVA) | payer OTHER, SELFPAY | PROVIDERS: PCP Registered Nurse; Visit Provider Student in an Organized Health Care Education/Training Program | DX: L40.50 Arthropathic psoriasis, unspecified (principal); Z79.620 Long term (current) use of immunosuppressive biologic | CPT/HCPCS: 99212 ==

== ENCOUNTER 2025-03-11 15:43 | Inpatient (IN) | payer OTHER, SELFPAY ==
[2025-03-11] VITALS (7 sets, daily range): BP systolic 140–158; BP diastolic 63–91; PULSE 69–98; RESP 18–22; TEMP 37.1–38.1; O2SAT 85–98; BMI 32.5
--- NOTE | ~2025-03-11 | MR_ITS ---
CLINICAL HISTORY: diabetic leg infection, psoriasis, r o deep space MR right tibia/fibula with and without contrast Comparison: None Findings: No bone marrow edema or abnormal enhancement. The musculature is mildly atrophic and is edematous. Edema is seen in each compartment, most prominent distally. The tendons are intact. Unremarkable vessels and nerves. There is a rim enhancing fluid collection measuring 3.5 x 2.2 x 9.9 cm within the subcutaneous fat at the posterolateral aspect of the distal lower extremity. There is skin thickening, edema and enhancement in the subcutaneous fat. Impression: No osteomyelitis. Cellulitis with myositis. Abscess measuring 9.9 cm. This document has been electronically signed by: Poppy Felix MD on 03/12/2025 18:03:37
--- NOTE | ~2025-03-11 | XR_ITS ---
EXAMINATION: XR CHEST CLINICAL INFORMATION: dyspnea COMPARISON: Chest x-ray 03/29/2023 TECHNIQUE: 2 views of the chest were obtained. FINDINGS: The lungs are hypoexpanded but clear acute pneumonic process. Heart size is borderline enlarged. Pulmonary vascularity is increased. No gross bony abnormality seen. There is mild spondylosis dorsal spine. No aggressive lytic or sclerotic process. XR/XR chest 2V IMPRESSION: Mild increased pulmonary vascularity question congestion. Heart size is borderline enlarged. No acute pneumonic process or pleural effusion. Electronically signed by: Lorne Palm MD 03/11/2025 04:54 PM EDT
--- NOTE | ~2025-03-11 | US_ITS ---
EXAMINATION: US LOWER EXTREMITY VEINS BILATERAL HISTORY: pain RLE, swelling Bilaterally COMPARISON: Comparison is made with the prior examination dated 08/19/2020. TECHNIQUE: Duplex and color Doppler sonographic examination of the deep venous system of the bilateral lower extremities was performed. FINDINGS: The right common femoral, superficial femoral, and popliteal veins are patent demonstrating normal compressibility, spontaneous flow, and augmentation. There is a normal color and spectral Doppler waveform appearance of the visualized deep venous system above the knee. The posterior tibial and peroneal veins are patent. There is a prominent lymph node in the right groin measuring 3.7 x 1.4 x 4.4 cm. The left common femoral, superficial femoral, and popliteal veins are patent demonstrating normal compressibility, spontaneous flow, and augmentation. There is a normal color and spectral Doppler waveform appearance of the visualized deep venous system above the knee. The posterior tibial and peroneal veins are patent. US/US venous duplex LE BI IMPRESSION: No evidence of acute DVT in the bilateral lower extremities. Electronically signed by: Balbir Locke MD 03/12/2025 12:33 PM EDT
--- NOTE | 2025-03-11 16:08 | ED.GENADULT ---
HPI - General Adult General Chief complaint: Dyspnea Stated complaint: right leg pain comes up to back SOB Time Seen by Provider: 03/11/25 18:08 Source: patient Limitations: language barrier History of Present Illness ED Provider: Zabrina Doyle PA-C HPI narrative: 54-year-old male with a history of morbid obesity, psoriasis with psoriatic arthritis, hyperlipidemia, hypertension, diabetes, heart failure with no known echo here at [facility] who presents with multiple complaints. Patient states he has ulcerations over right lower extremity, he was seen at [facility] 3 weeks ago, they gave him an ointment and told him to follow up with the wound care. Patient states the wounds have become swollen and now he has purulent discharge from the site. New overlying redness of right lower extremity. Denies known fever. Patient also states he developed dyspnea on exertion since this afternoon. Denies chest pain. No recent cough or cold symptoms. Unknown if he has a unintentional weight gain. Related Data Home Medications ?Medication ?Instructions ?Recorded ?Confirmed aspirin 81 mg tablet,delayed 81 mg PO DAILY 02/04/21 03/04/25 release lisinopril 20 1 tab PO DAILY 02/04/21 03/04/25 mg-hydrochlorothiazide 25 mg tablet acetaminophen 325 mg tablet 650 mg PO TID PRN fever 03/17/23 03/04/25 atorvastatin 40 mg tablet 40 mg PO QPM 03/17/23 03/04/25 benzonatate 100 mg capsule 100 mg PO TID PRN cough 03/17/23 03/04/25 gabapentin 100 mg capsule 100 mg PO QPM neuropathic pain 03/17/23 03/04/25 metformin 500 mg tablet,extended 500 mg PO 03/17/23 03/04/25 release 24 hr tamsulosin 0.4 mg capsule mg PO QPM 03/17/23 03/04/25 dulaglutide 4.5 mg/0.5 mL mg subcut 01/16/24 03/04/25 subcutaneous pen injector (Trulicity) insulin glargine 100 unit/mL (3 10 unit subcut BEDTIME 01/16/24 03/04/25 mL) subcutaneous pen (Lantus Solostar U-100 Insulin) furosemide 40 mg tablet (Lasix) 80 mg PO BID 04/16/24 03/04/25 Previous Rx's ?Medication ?Instructions ?Recorded meloxicam 7.5 mg tablet 7.5 mg PO DAILY PRN paih #30 tabs 12/01/22 lidocaine 5 % topical patch 1 patch topical .COMPLEX pain 30 03/17/23 days #30 ea folic acid 1 mg tablet 1 mg PO DAILY #90 tabs 05/24/23 ixekizumab 80 mg/mL subcutaneous 80 mg subcut .COMPLEX #2 mL 03/04/25 auto-injector (F[employer] Autoinjector) Allergies Allergy/AdvReac Type Severity Reaction Status Date / Time No Known Allergies Allergy Verified 03/11/25 16:10 Review of Systems Review of Systems: Yes all other systems are reviewed and are negative Constitutional: Constitutional: Denies fatigue and Denies fever(s) Cardiovascular: Cardiovascular: Denies chest pain and Reports dyspnea on exertion Respiratory: Respiratory: Denies chest congestion, Denies cough and Reports dyspnea on exertion Gastrointestinal: Gastrointestinal: Denies abdominal pain Musculoskeletal: Musculoskeletal: Reports arthralgias Integumentary/Breasts: Skin/Breast: Reports erythema and Reports wounds Endocrine: Endocrine: Denies fatigue PMFSH Past Medical History Attestation statement: The following information was validated with the patient. Medical History CHF (congestive heart failure) Psoriasis Psoriatic arthritis Hypercholesteremia Lumbago with sciatica, right side Elev transaminase/LDH Neuropathy Diabetes Psoriasis Family History Family History Father Diabetes HTN (hypertension) Mother Diabetes Social History Social History Alcohol intake: never Patient Tobacco Use Status: Never used Tobacco Smoked in Last 30 Days: No e-Cigarette/Vaping Use: Never Used Use of substances other than those prescribed or required for medical reasons: No Advance Directives: No Advance Directives Information Provided: No service: No Current occupational status: employed 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 Physical Exam ED Vital Signs: Vital Signs - 24 hr 03/11/25 16:07 03/11/25 19:10 03/11/25 19:42 Temperature 98.9 F 100.5 F H Pulse Rate 81 93 98 Respiratory Rate 20 21 H 18 Blood Pressure 158/63 H 142/91 H Pulse Oximetry 93 85 L 94 Oxygen Delivery Method Room Air Room Air Nasal Cannula Oxygen Flow Rate 2 03/11/25 20:47 Temperature 98.8 F Pulse Rate 77 Respiratory Rate 19 Blood Pressure 140/70 H Pulse Oximetry 96 Oxygen Delivery Method Nasal Cannula Oxygen Flow Rate 2 BMI result Body Mass Index 32.5 Const Other: Alert, appears older than stated age Orientation/consciousness: patient oriented x3 Resp Other: Somewhat tachypneic, faint crackles noted posterior kitchen Cardio Other: Pitting edema bilaterally Skin Other: Warm dry, numerous raised plaques that are dry with the overlying scale, prominent over extensor surfaces, consistent with psoriasis Neuro General: patient oriented x3, gait normal, no focal motor deficits and CN's II-XI intact bilaterally Extrem Other: Right lower extremity is erythematous , open ulcerations with purulent drainage noted lateral right lower extremity superior to the ankle Psych Other: Hostile Course Course Course Narrative: This is a rapid medical exam performed by Lisette Herrera NP: Additional HPI, ROS, PE not included below will be deferred to primary provider. Patient is a 54-year-old male presenting with complaint of right leg pain radiating to back, dyspnea since 1pm today. Recently admitted to [facility] for this dyspnea. Weeping wound to RLE, unable to visualize in triage. Plan: EKG, labs, CXR Reevaluation(s) Reevaluation #1: This is a sepsis focused exam performed at 7:55 p.m. on March 11, we will be adding blood cultures, lactic, starting antibiotics, giving a 500 mL bolus. The patient is also in concurrent heart failure, he is normotensive, he does not require weight based IV fluid, and furthermore he can not receive it. Time: 19:55 Medications Administered Discontinued Medications Generic Name Dose Route Start Last Admin Trade Name Freq PRN Reason Stop Dose Admin Acetaminophen 975 mg 03/11/25 19:56 03/11/25 20:07 Acetaminophen 325 Mg Tablet PO 03/11/25 19:57 975 mg ONCE ONE Administration Furosemide 80 mg 03/11/25 18:09 03/11/25 19:35 Furosemide 100 Mg/10 Ml Vial IVPUSH 03/11/25 18:10 80 mg ONCE ONE Administration Protocol Piperacillin Sod/Tazobactam 50 mls @ 100 mls/hr 03/11/25 19:09 03/11/25 20:40 Sod 3.375 gm/ Sodium Chloride IV 03/11/25 19:38 Infused ONCE ONE Infusion Sodium Chloride 500 mls @ 500 mls/hr 03/11/25 19:10 03/11/25 21:11 Ns IV 03/11/25 20:09 Infused .Q1H ONE Infusion Vancomycin HCl 2,000 mg in 500 mls @ 250 mls/hr 03/11/25 19:15 03/11/25 20:46 Vancomycin/Ns IV 03/11/25 21:14 250 mls/hr ONCE ONE Administration Procedures Procedure Narrative Procedure Narrative: Ultrasound-guided IV 18 gauge 1-3/4 inch IV placed in left upper extremity, adequate blood return, flushes well secured with Tegaderm Medical Decision Making Medical Decision Making MDM Narrative: 54-year-old male with a history of morbid obesity, psoriasis with psoriatic arthritis, hyperlipidemia, hypertension, diabetes, heart failure was no known echo here at [facility] who presents with multiple complaints. Patient states he has ulcerations over right lower extremity, he was seen at [facility] 3 weeks ago, they gave him an ointment and told him to follow up with the wound care. Patient states the wounds have become swollen and now he has purulent discharge from the site. New overlying redness of right lower extremity. Denies known fever. Patient also states he developed dyspnea on exertion since this afternoon. Denies chest pain. No recent cough or cold symptoms. Unknown if he has a unintentional weight gain. Problem: Obesity diabetes, psoriasis, heart failure History: Per patient I have considered the following differential diagnoses: Cellulitis, purulent cellulitis, heart failure exacerbation, sepsis Plan: Sepsis identified, in addition to screening labs adding on blood cultures and lactic, starting antibiotic therapy, we will be giving 500 mL bolus of fluid, the patient is also in concurrent heart failure, he can not have weight based IV fluid therapy for this reason, giving Tylenol for the fever. He has evidence of purulent cellulitis of right lower extremity. Heart failure exacerbation, as I have already said, was considered from triage, screening labs including troponin BNP EKG and chest x-ray obtained. He does have vascular congestion, he is hypoxic 85% on room air, we will load him with IV Lasix, he is not overtly hypertensive, holding on nitroglycerin for further vasodilation. Adding on a delta troponin. I have independently reviewed the following tests: Labs: No overall leukocytosis but left shift noted, not anemic, no electrolyte abnormality, blood sugar 389, lactic 0.9, troponin 40.9, delta troponin 39.6, C-reactive protein 3.41, BNP 714 EKG: Normal sinus rhythm, rate of 91, nonspecific T-wave abnormalities, QTC 450 no active ischemic changes Chest x-ray:FINDINGS: The lungs are hypoexpanded but clear acute pneumonic process. Heart size is borderline enlarged. Pulmonary vascularity is increased. No gross bony abnormality seen. There is mild spondylosis dorsal spine. No aggressive lytic or sclerotic process. XR/XR chest 2V IMPRESSION: Mild increased pulmonary vascularity question congestion. Heart size is borderline enlarged. No acute pneumonic process or pleural effusion. Lab Data 03/11/25 16:31 03/11/25 16:31 Labs: Lab Results 03/11/25 03/11/25 03/11/25 Range/Units 16:31 18:22 19:31 WBC 7.1 (4.8-10.8) X10*3/uL RBC 3.97 L (4.60-5.80) X10*6/uL Hgb 11.3 L (14.0-18.0) g/dl Hct 32.5 L (42.0-52.0) % MCV 81.9 (80.0-98.0) fL MCH 28.5 (27.0-33.0) pg MCHC 34.8 (31.0-36.0) g/dl RDW 13.8 (11.0-16.0) % Plt Count 173 D (160-400) X10*3/uL MPV 9.0 L (9.4-12.4) fL Immature Gran % (Auto) 0.3 (0.0-0.4) % Neut % (Auto) 83.9 H (45-73) % Lymph % (Auto) 6.5 L (20-40) % [place] % (Auto) 7.9 (2-11) % Eos % (Auto) 1.1 (0-4) % Baso % (Auto) 0.3 (0-2) % Lymph # (Auto) 0.5 L (1.2-4.9) X10*3/uL [place] # (Auto) 0.6 (0.1-1.2) X10*3/uL Eos # (Auto) 0.1 (0.0-0.4) X10*3/uL Baso # (Auto) 0.0 (0.0-0.2) X10*3/uL Abs Immat Gran (auto) 0.02 (0.00-0.03) X10*3/uL Absolute Neuts (auto) 5.9 (2.0-8.3) x10*3/uL Absolute Nucleated RBC 0.000 (0.0-0.012) X10*3/uL Nucleated RBC % (auto) 0.0 (0.0-0.2) /100WBC ESR 94 H (0-15) MM/HR Sodium 135 (135-145) mmol/L Potassium 4.2 (3.3-5.1) mmol/L Chloride 100 (96-108) mmol/L Carbon Dioxide 27 (22-29) mmol/L Anion Gap 12 (12-20) BUN 15 (9-16) mg/dL Creatinine 0.93 (0.5-1.4) mg/dL Estim Creat Clear Calc 115.7 Estimated GFR > 60 Random Glucose 389 H* (60-115) mg/dL Lactic Acid 0.9 (0.5-2.0) mmol/L Calcium 9.0 (8.4-10.2) mg/dL Magnesium 1.9 (1.6-2.6) mg/dL Total Bilirubin 0.8 (0.0-1.0) mg/dL AST 13 (5-37) U/L ALT 8 (0-40) U/L Alkaline Phosphatase 106 (39-117) U/L Troponin I High Sens 40.9 H 39.6 H (<3.5-35.0) ng/L C-Reactive Protein 3.41 H (< or = 0.50) mg/dL B-Natriuretic Peptide 714 H (<100) pg/mL Total Protein 6.5 (6.5-8.0) g/dL Albumin 3.1 L (3.5-5.0) g/dL Urine Color Urine Appearance Urine pH (5.0-9.0) Ur Specific [place] (1.005-1.025) Urine Protein (Neg-Trace) mg/dL Urine Glucose (UA) (Negative) mg/dL Urine Ketones (Negative) mg/dL Urine Blood (Negative) Urine Nitrite (Negative) Ur Leukocyte Esterase (Negative) Urine RBC (0-2) /HPF Urine WBC (0-5) /HPF Ur Squamous Epith Cells (0-2) /HPF Urine Bacteria (None Seen) Hyaline Casts (0-2) /LPF Influenza Type A (PCR) NEGATIVE (Negative) Influenza Type B (PCR) NEGATIVE (Negative) RSV RNA Qual (PCR) NEGATIVE (Negative) SARS-CoV-2 RNA (RT-PCR) NEGATIVE (Negative) 03/11/25 Range/Units 20:12 WBC (4.8-10.8) X10*3/uL RBC (4.60-5.80) X10*6/uL Hgb (14.0-18.0) g/dl Hct (42.0-52.0) % MCV (80.0-98.0) fL MCH (27.0-33.0) pg MCHC (31.0-36.0) g/dl RDW (11.0-16.0) % Plt Count (160-400) X10*3/uL MPV (9.4-12.4) fL Immature Gran % (Auto) (0.0-0.4) % Neut % (Auto) (45-73) % Lymph % (Auto) (20-40) % [place] % (Auto) (2-11) % Eos % (Auto) (0-4) % Baso % (Auto) (0-2) % Lymph # (Auto) (1.2-4.9) X10*3/uL [place] # (Auto) (0.1-1.2) X10*3/uL Eos # (Auto) (0.0-0.4) X10*3/uL Baso # (Auto) (0.0-0.2) X10*3/uL Abs Immat Gran (auto) (0.00-0.03) X10*3/uL Absolute Neuts (auto) (2.0-8.3) x10*3/uL Absolute Nucleated RBC (0.0-0.012) X10*3/uL Nucleated RBC % (auto) (0.0-0.2) /100WBC ESR (0-15) MM/HR Sodium (135-145) mmol/L Potassium (3.3-5.1) mmol/L Chloride (96-108) mmol/L Carbon Dioxide (22-29) mmol/L Anion Gap (12-20) BUN (9-16) mg/dL Creatinine (0.5-1.4) mg/dL Estim Creat Clear Calc Estimated GFR Random Glucose (60-115) mg/dL Lactic Acid (0.5-2.0) mmol/L Calcium (8.4-10.2) mg/dL Magnesium (1.6-2.6) mg/dL Total Bilirubin (0.0-1.0) mg/dL AST (5-37) U/L ALT (0-40) U/L Alkaline Phosphatase (39-117) U/L Troponin I High Sens (<3.5-35.0) ng/L C-Reactive Protein (< or = 0.50) mg/dL B-Natriuretic Peptide (<100) pg/mL Total Protein (6.5-8.0) g/dL Albumin (3.5-5.0) g/dL Urine Color Yellow Urine Appearance Clear Urine pH 6.0 (5.0-9.0) Ur Specific [place] 1.020 (1.005-1.025) Urine Protein >=1000 (4+) H (Neg-Trace) mg/dL Urine Glucose (UA) >=1000 H (Negative) mg/dL Urine Ketones Negative (Negative) mg/dL Urine Blood Moderate (2+) H (Negative) Urine Nitrite Negative (Negative) Ur Leukocyte Esterase Negative (Negative) Urine RBC 6-10 H (0-2) /HPF Urine WBC 0-5 (0-5) /HPF Ur Squamous Epith Cells 0-2 (0-2) /HPF Urine Bacteria None Seen (None Seen) Hyaline Casts 3-5 (0-2) /LPF Influenza Type A (PCR) (Negative) Influenza Type B (PCR) (Negative) RSV RNA Qual (PCR) (Negative) SARS-CoV-2 RNA (RT-PCR) (Negative) Discharge Plan Discharge Clinical Impression: Cellulitis of right lower extremity, Acute exacerbation of CHF (congestive heart failure), Hypoxia Patient Disposition: Admitted As Inpatient Prescriptions: No Action meloxicam 7.5 mg tablet 7.5 mg PO DAILY PRN (Reason: paih) Qty: 30 1RF lisinopril-hydrochlorothiazide 20-25 mg tablet 1 tab PO DAILY aspirin 81 mg tablet,delayed release (DR/EC) 81 mg PO DAILY furosemide [Lasix] 40 mg tablet 80 mg PO BID folic acid 1 mg tablet 1 mg PO DAILY Qty: 90 1RF benzonatate 100 mg capsule 100 mg PO TID PRN (Reason: cough) acetaminophen 325 mg tablet 650 mg PO TID PRN (Reason: fever) gabapentin 100 mg capsule 100 mg PO QPM atorvastatin 40 mg tablet 40 mg PO QPM metformin 500 mg tablet extended release 24 hr 500 mg PO tamsulosin 0.4 mg capsule PO QPM lidocaine 5 % adhesive patch,medicated 1 patch topical .COMPLEX 30 Days Qty: 30 0RF Rx Instructions: 1 patch topically; Trulicity 4.5 mg/0.5 mL pen injector subcut insulin glargine [Lantus Solostar U-100 Insulin] 100 unit/mL (3 mL) insulin pen 10 unit subcut BEDTIME [employer] Autoinjector 80 mg/mL auto-injector 80 mg subcut .COMPLEX Qty: 2 6RF Rx Instructions: 80 mg subcutaneously; 160 mg once, followed by 80 mg at weeks 2, 4, 6, 8, 10, and 12, and then 80 mg every 4 weeks Print Language: Bulgarian
--- NOTE | 2025-03-11 16:16 | ECG_ITS ---
Test Reason : DYSPNEA Blood Pressure : */* mmHG Vent. Rate : 91 BPM Atrial Rate : 91 BPM P-R Int : 136 ms QRS Dur : 86 ms QT Int : 366 ms P-R-T Axes : 33 -11 70 degrees QTcB Int : 450 ms Normal sinus rhythm Nonspecific T wave abnormality Abnormal ECG When compared with ECG of 06-Oct-2011 15:23, NST is now present Referred By: Rosemary Herrera Electronically Signed By: JERMAINE BYRD MD
[2025-03-11 16:37] LABS: MANUAL DIFF FLAG NO
[2025-03-11 16:41] LABS: Basophils Percent Auto 0.3 % (0-2); Eosinophils Absolute Auto 0.1 X10*3/uL (0.0-0.4); Eosinophils Percent Auto 1.1 % (0-4); Hematocrit 32.5 % (42.0-52.0); Hemoglobin 11.3 g/dl (14.0-18.0); Imm Gran Abs Auto 0.02 X10*3/uL (0.00-0.03); Imm Gran Pct Auto 0.3 % (0.0-0.4); Lymphocytes Absolute Auto 0.5 X10*3/uL (1.2-4.9); Lymphocytes Percent Auto 6.5 % (20-40); Mean Corpuscular HGB Conc 34.8 g/dl (31.0-36.0); Mean Corpuscular Hemoglobin 28.5 pg (27.0-33.0); Mean Corpuscular Volume 81.9 fL (80.0-98.0); Monocytes Absolute Auto 0.6 X10*3/uL (0.1-1.2); Monocytes Percent Auto 7.9 % (2-11); Neutrophils Absolute Auto 5.9 x10*3/uL (2.0-8.3); Neutrophils Percent Auto 83.9 % (45-73); Platelet Count 173 X10*3/uL (160-400); Red Blood Count 3.97 X10*6/uL (4.60-5.80); Red Cell Distribution Width 13.8 % (11.0-16.0); White Blood Count 7.1 X10*3/uL (4.8-10.8)
[2025-03-11 17:05] LABS: B Type Natriuretic Peptide 714 pg/mL (<100)
[2025-03-11 17:08] LABS: Alanine Aminotransferase 8 U/L (0-40); Albumin Level 3.1 g/dL (3.5-5.0); Anion Gap 12 (12-20); Aspartate Amino Transferase 13 U/L (5-37); Bilirubin Total 0.8 mg/dL (0.0-1.0); Blood Urea Nitrogen 15 mg/dL (9-16); C Reactive Protein 3.41 mg/dL (< or = 0.50); Carbon Dioxide 27 mmol/L (22-29); Chloride 100 mmol/L (96-108); Creatinine Clr Calc Pharmacy 115.7; Estimated Glomerular Filt Rate > 60; Glucose Random 389 mg/dL (60-115); Magnesium 1.9 mg/dL (1.6-2.6); Potassium 4.2 mmol/L (3.3-5.1); Sodium 135 mmol/L (135-145); Total Protein 6.5 g/dL (6.5-8.0)
[2025-03-11 17:10] LABS: Troponin-I High Sensitivity 40.9 ng/L (<3.5-35.0)
[2025-03-11 17:15] LABS: Influenza A PCR NEGATIVE (Negative); Influenza B PCR NEGATIVE (Negative); Resp Syncy Virus RNA Qual PCR NEGATIVE (Negative); SARS COV2 PCR INHOUSE NEGATIVE (Negative)
[2025-03-11 17:18] LABS: Erythrocyte Sedimentation Rate 94 MM/HR (0-15)
[2025-03-11 17:19] LABS: Alkaline Phosphatase 106 U/L (39-117)
--- OUTSIDE RECORDS SUMMARY | 2025-03-11 18:11 | XMS_ITS | Encounter Summary ---
Author Organization [employer] Address [address] [facility] [address] [place] [address] Care Team Providers Care Dental Assistant Name Role Phone Marilee Cordero Primary Care Provider [phone] Cristo Garcia MD Unavailable Doris Candelario Unavailable [phone] Yoselyn Lyons Unavailable Unavailable Balbir Don Unavailable Reason for Visit * Reason Comments Med Refill Encounter Details Date Type Department Care Team (Late Contact Info) Description 07/23/2023 Refill [facility] MEDICINE [address] [place] [address] Donavan Mcgee AGNP Social History Tobacco Use [...] Description 04/28/2025 9:00 AM EDT Office Visit [facility] MED & PEDS [address] [place], [place] [phone] Marilee Cordero FNP [address] [place], [place] [phone] documented as of this encounter Visit Diagnoses Not on filedocumented in this encounter Additional Health Concerns Assessment Noted Time PHQ-9 Depression Total Score: 1 10/17/20 22 10:05 AM EST documented as of this encounter Care Teams Dental Assistant Relationship Specialty Start Date End Date Marilee Cordero FNP [address] [place] [address] PCP - General Family Medicine 03/23/23 Cristo Garcia MD [address] [place] [address] [address] [place] [address] Rheumatology 09/01/24 Doris Candelario [address] [place] [address] Cardiology 09/01/24 Yoselyn Lyons [address] [place] [address] Ophthalmology 09/01/24 Balbir Don [address] [facility] [address] [place] [address] Sleep Medicine 09/01/24 Dr. Ramirez [address] [facility] [address] [place] [address] Nephrology 09/01/24 documented as of this encounter
--- OUTSIDE RECORDS SUMMARY | 2025-03-11 18:11 | XMS_ITS | Encounter Summary ---
Author Organization [employer] Address [address] [facility] [address] [place] [address] Care Team Providers Care Hotel Reservation Agent Name Role Phone Marilee Cordero Primary Care Provider [phone] Cristo Garcia MD Unavailable Doris Candelario Unavailable [phone] Yoselyn Lyons Unavailable Unavailable Balbir Don Unavailable Reason for Referral * Consultation (Routine) - Closed Specialty Diagnoses / Procedures Referred By Contzena t Referred To Contact Nephrology Diagnoses Albuminuria Marilee Cordero FNP [address] [place] [address] Phone: tel: fax: Bayron Marshall MD [address] [facility] [address] [place] [address] Phone: tel: fax: Referral ID Status Reason Start Date Expiration Date V isits Requested Visits Authorized [id number] Closed Specialty Services Required 12/29/2023 12/28/2024 1 1 Encounter Details Date Type Department Care Team (Late st Contact Info) Description 12/29/2023 Orders Only [facility] MED & PEDS [address] [place], [place] [phone] Marilee Cordero FNP [address] [place], [place] [phone] Albuminuria (Primary Dx) Social History Tobacco Use [...] Upcoming Encounters Date Type Department Care Team ([facility] st Contact Info) Description 04/28/2025 9:00 AM EDT Office Visit [facility] MED & PEDS [address] [place] [address] Marilee Cordero FNP [address] [place] [address] documented as of this encounter Procedures Procedure [...] documented as of this encounter Care Teams Hotel Reservation Agent Relationship Specialty Start Date End Date Marilee Cordero FNP [address] [place] [address] PCP - General Family Medicine 03/23/23 Cristo Garcia MD [address] [place] [address] [address] [place] [address] Rheumatology 09/01/24 Doris Candelario [address] [place] [address] Cardiology 09/01/24 Yoselyn Lyons [address] [place] [address] Ophthalmology 09/01/24 Balbir Don [address] [facility] [address] [place] [address] Sleep Medicine 09/01/24 Dr. Ramirez [address] [facility] 200 [place] [address] Nephrology 09/01/24 documented as of this encounter
--- OUTSIDE RECORDS SUMMARY | 2025-03-11 18:11 | XMS_ITS | Continuity of Care Document ---
Author Organization [employer] [facility] Address [address] [place] [id number] Phone Care Team Providers Care Floating Labor Gang Supervisor Name Role Phone Prasahnt Burgos LMSW Unavailable Unavailable Allergies, Adverse Reactions, Alerts Substance [...] diclofenac 1 % topical gel - Active Advance Directives Directive Yes / No Effective Date File Name No Information Encounters Encounter Description Practice Location Reason(s) For Visit Diagnoses Date Provider [facility], [address] [place] [address], [facility], tel:[phone] IOP A [facility] [address] Aub[address] Cerda. [address] [place] [address], [id number], [place]. tel:[phone] [employer] [facility], [address] [place] [address], [facility], tel:[phone] IOP A [facility] [address] Aubrey Cerda. [address] [place] [address], [id number], [place]. tel:[phone] [facility], [address] [place] [address], [id number], tel:[phone] IOP A [facility] [address] Leo Raul. [address] [place] [address], [id number], . tel:[phone] [place] [address], [address] [place] [address], [facility], tel:[phone] IOP A [facility] [address] Cerda. [address] [place] [address], [id number], [place]. tel:[phone] [facility], [address] [place] [address], [facility], tel:[phone] IOP A [facility] [address] Leo Carter. [address] [place] [address], [address] [place] [address], . tel:[phone], [address] [place] [address], [facility], tel:[phone] CM MAT [facility] [address] [place] Sinbindu. [address] [place] [address], [address] [place] [address], . tel:[phone] [facility], [address] [place] [address], [facility], tel:[phone] [address] No Information Margarito Sher. [address] [place] [address], [address] [place] [address], [place]. tel:[phone] [facility], [address] [place] [address], [facility], tel:[phone] [facility] [employer] [address] [place]. [address] [place] [address], [address] [place] [address], . tel:[phone], [address] [place] [address], [id number], tel:[phone] OP A [facility] [address] Monte[address] Moss. [address], [place], [id number], [place]. tel:[phone] [facility], [address] [place] [address], [facility], tel:[phone] OP A [facility] [address] Anay Blair. [address], [place], [id number], . tel:[phone] [facility], [address] [place] [address], [facility], tel:[phone] [facility] [address] EOC ([facility] ent of care) (chief complaint)e stablish care (chief complaint) Body mass index (BMI) 32.0-32.9, adultEssential (primary) hypertensionType 2 diabetes mellitus without complicationsGERD w/o esophagitisPerson encountering health serviceDietary counseling and surveillanceExercise counseling Grabiel Rasmussen. [address], [place], [id number], . tel:[phone] [facility], [address] [place] [address], [facility], tel:[phone] [facility] [address] Phuc Archibald. [address] [place] [address], [id number], . tel:[phone] As per patient privacy policy some of the clinical information may not be visible. Family History Family Member Type Diagnosis Age At Onset No Information Immunizations Vaccine Date Status Comments HepA/B (TWINRIX) administered Source: [facility] er Registry HepA/B (TWINRIX) administered Source: [facility] er Registry COVID-19 Vector-NR (JSN) administered Alaina rce: Other Registry Payers Payer name Insurance type Covered green party ID Authorjamesa michael(s) Devi Alonso [id number] Social History Type Description Quantity Date Captured Comments Alcohol Use Details Unknown Caffeine Use Details Unknown Tobacco Use Status Moderate cigarette s moker (10-19 cigs/day) Smoking Status Heavy tobacco smoker Sex Male Sexual Orientation Don't Know Gender Identity Male Chief Complaint And Reason For Visit No Information Plan Of Treatment Date Type Action Status Goal Hep B (3rd). Due on due Goal Dental exam. Due on due Goal Lipid panel. Due on due Goal Hep B (1st) due Goal Foot exam. Due on due Goal Influenza vaccine. Due on due Goal GFR. Due on due Goal Pneumococcal vac cine. Due on due Goal Dilated eye exam. Due on February due Goal Hep B (2nd) due Goal ASCVD 10 year risk. Due on due Goal Hep B (1st) due Goal Hep B (2nd) due Goal ASCVD 10 year risk. Due on due Goal Dental exam. Due on due Goal Influenza vaccine. Due on due Goal Foot exam. Due on due Goal Lipid panel. Due on due Goal Dilated eye exam. Due on February due Goal GFR. Due on due Goal Pneumococcal vac cine. Due on due Goal Hep B (3rd). Due on due Goal Dental exam. Due on due Goal Hep B (1st) due Goal Pneumococcal vac cine. Due on due Goal Influenza vaccine. Due on due Goal Lipid panel. Due on due Goal Hep B (3rd). Due on due Goal GFR. Due on due Goal Foot exam. Due on due Goal Dilated eye exam. Due on February due Goal Hep B (2nd) due Goal ASCVD 10 year risk. Due on due Goal Hep B (1st) due Goal Dilated eye exam. Due on February due Goal Lipid panel. Due on due Goal Hep B (3rd). Due on due Goal Foot exam. Due on due Goal GFR. Due on due Goal Influenza vaccine. Due on due Goal Pneumococcal vac cine. Due on due Goal ASCVD 10 year risk. Due on due Goal Hep B (2nd) due Goal Dental exam. Due on due Goal GFR. Due on due Goal Hep B (3rd). Due on due Goal Dental exam. Due on due Goal Influenza vaccine. Due on due Goal Hep B (1st) due Goal Pneumococcal vac cine. Due on due Goal Foot exam. Due on due Goal ASCVD 10 year risk. Due on M due Goal Hep B (2nd) due Goal Lipid panel. Due on due Goal Dilated eye exam. Due on February due Goal Foot exam. Due on due Goal Dental exam. Due on due Goal Hep B (3rd). Due on due Goal GFR. Due on due Goal Dilated eye exam. Due on Jan due Goal Hep B (2nd) due Goal Lipid panel. Due on due Goal ASCVD 10 year risk. Due on A due Goal Pneumococcal vac cine. Due on due Goal Hep B () due Goal Influenza vaccine. Due on Ap due Goal Dental exam. Due on due Goal GFR. Due on due Goal Foot exam. Due on due Goal Pneumococcal vac cine. Due on due Goal ASCVD 10 year risk. Due on due Goal Influenza vaccine. Due on due Goal Dilated eye exam. Due on Nov due Goal Hep B (). Due on due Goal Lipid panel. Due on due Goal ASCVD 10 year risk. Due on due Goal Hep B (1st). Due on due Goal Foot exam. Due on due Goal Dental exam. Due on due Goal Dilated eye exam. Due on Nov due Goal Pneumococcal vac cine. Due on due Goal GFR. Due on due Goal Lipid panel. Due on due Goal Influenza vaccine. Due on due Goal Tobacco cessation counseling completed Goal Lifestyle education regardin g diet completed Appointment Joesph Saldana BOOKED Appointment Joesph Saldana BOOKED Appointment Joesph Saldana BOOKED Appointment Joesph Saldana BOOKED Appointment Joesph Saldana BOOKED Appointment Joesph Saldana BOOKED Appointment Joesph Saldana BOOKED Appointment Joesph Saldana BOOKED Appointment Joesph Saldana BOOKED Appointment Joesph Saldana BOOKED Appointment Joesph Saldana BOOKED Appointment Joesph Saldana BOOKED Appointment Joesph Saldana BOOKED Appointment Joesph Saldana BOOKED Appointment Joesph Saldana BOOKED Appointment Joesph Saldana BOOKED Appointment Joesph Saldana BOOKED Appointment Joesph Saldana BOOKED Appointment Joesph Saldana BOOKED Appointment Joesph Saldana BOOKED Appointment Joesph Saldana BOOKED Appointment Joesph Saldana BOOKED Appointment Joesph Saldana BOOKED Appointment Joesph Saldana BOOKED Appointment Les, Joesph BOOKED Appointment Les, [...] Order: Lab Order COMPREHE NSIVE METABOLIC PANEL (97050), Sent on: Sent Future Order: Lab Order HEMOGLOB IN A1C (496), Sent on: Sent Future Order: Lab Order CHLAMYDI A/NEISSERIA GONORRHOEAE RNA, TMA UROGENITAL ([id number]), Sent on: Sent Future Order: Lab Order HIV 1/2 ANTIGEN/ANTIBODY, FOURTH GEN W/ REFLEX ([id number]), Sent on: Sent Future Order: Lab Order HEPATITI S PANEL, ACUTE W/REFLEX ([id number]), Sent on: Sent Future Order: Lab Order LIPID PA NEHEMIAH ([id number]), Sent on: Sent Future Order: Lab Order RPR (DX) W/REFL TITER AND CONFIRMATORY TESTING ([id number]), Sent on: Sent Future Order: Lab Order MICROALB UMIN, RANDOM URINE (W/CREATININE) ([id number]), Sent on: Sent History Of Present Illness Encounter Date Complaint History Of Prese nt Illness establish care Here for establi sh of care for PCP. Last had a PCP in 2019. PMHx: HTN, GERD, T2DM, anxiety, depression, PTSDPSHx: reports laparoscopy as infantNo family history of colon cancer, prostate cancer Social: - senior living house- smoking cigarettes 0.5ppd started in 20s [...] refilled ppi Related to GERD w/o esophagitis At goal continue aml odipine 5mg daily labs orderedf/u 4-6 weeks Related to Essential (primary) hypertension Labs ordered for aba luation including A1c, lipids, cmp, microalbumin. Continue metformin bid for now. Last A1c: orderedEye Exam: discuss next visitFoot Exam: discuss next visit microalbumin: orderedStatin: not taking LUIS/ARB: not taking Related to Type 2 diabetes mellitus without complications Giving encouragement to exercise Related to Body [...]
--- OUTSIDE RECORDS SUMMARY | 2025-03-11 18:11 | XMS_ITS | Clinical Summary ---
Author Organization [employer] Address [address] [place] [address] Care Team Providers Care Bilingual Medical Receptionist Name Role Phone Marilee Cordero BRANDEN Primary Care Provider [phone] Cristo Garcia MD Unavailable Doris Candelario Unavailable [phone] Yoselyn Lyons Unavailable Unavailable Balbir Don Unavailable Allergies No known active allergies Medications Blood Pressure kit Use daily Active Blood Glucose Monitoring Suppl (FreeStyle [place] Lite) w/Device kit 1 each by Other [...] hyperglycemia, with long-term current use of insulin (CMS/[facility]) Subcutaneous once daily use with lantus pen 100 each 3 03/23/20 23 Active gabapentin (Neurontin) 100 MG capsuleIndicat ions:Periphera l nerve disease TAKE 1 CAPSULE BY MOUTH EVERY EVENING (for nerve pain) 90 capsule 1 04/26/20 23 Active Continuous Blood Gluc Electric Organ Assembler (FreeStyle Osmani 2 [place]) deviceIndicati ons:Type 2 diabetes mellitus with hyperglycemia, with long-term current use of insulin (CMS/HCC) Scan sensor every 8 hours 1 each 11/26/19 24 Active Continuous Blood Gluc Sensor (FreeStyle Osmani 2 Sensor) miscIndication s:Type 2 diabetes mellitus with hyperglycemia, with long-term current use of insulin (CMS/[facility]) Apply 1 sensor every 14 days 2 [...] hyperglycemia, with long-term current use of insulin ([facility]) Inject 10 Units under the skin at [...] Followed by [facility] - Dr. Ramirez Jardiance 10mg daily Psoriatic arthritis 08/30/2024 Overview (08/30/2024): Followed by [facility] - Dr. Garcia Med therapy: DMARD, [...] heart failure 11/26/2023 Overview (01/27/2025): Following with [facility] Jul 2023: Nuclear stress test: Negative ECG [...] Hospitalization for CHF exacerbation: Oct 2023 at [facility] - Reviewed condition and concerning signs/symptoms - Cont med regimen below: Aspirin 81mg daily Atorvastatin 40mg nightly Furosemide 40mg BID (RX nephrology) Jardiance 10mg daily Carvedilol 6.25mg BID Entresto 24-26mg BID Spironolactone 25mg daily Assessment & Plan (01/27/2025 9:50 AM EDT): Cont current therapy, symptomatic SOB/BELL Referral to [facility] for further eval Assessment & Plan (09/01/2024 [...] 500mg BID Jardiance 10mg daily (rx through Base Draw Operator) - Trulicity on hold at this time [...] tx in Rheum note 02/04/21) -Re-established with [facility] Nov 2021, last consult appt December 2023 Plan to hold methotrexate with hx cardiac conditions Taltz injections through Rheum with notable improvement Assessment & Plan (03/03/2024 2:42 PM EDT): -Previous tx with methotrexate and Enbrel (hx of failed Humira tx in Rheum note 02/04/21) -Re-established with [facility] Nov 2021, last consult appt December 2023 Plan to hold methotrexate with hx cardiac conditions Authorization for Taltz is pending Assessment & Plan (08/11/2023 1:16 PM EDT): -Previous tx with methotrexate and Enbrel (hx of failed Humira tx in Rheum note 02/04/21) -Re-established with [facility] Nov 2021 ?? Says may have re-started on methotrexate but unsure. Will bring med list to next appt. -Pt was also referred to [facility] Derm Team, appt pending Assessment & Plan (04/12/2023 1:37 PM EDT): -Previous tx with methotrexate and Enbrel (hx of failed Humira tx in Rheum note 02/04/21) -Re-established with [facility] Nov 2021 ?? Says may have re-started on methotrexate but unsure. Will bring med list to next appt. -Pt was also referred to [facility] Derm Team, appt pending Assessment & Plan (10/20/2022 9:18 AM EST): -Previous tx with methotrexate and Enbrel (hx of failed Humira tx in Rheum note 02/04/21) -Reports has not been taking any meddications for psoriasis in > 6 month, interested in re-establishing with specialists -Upcoming appt with [facility] Nov 2021 -Pt was also referred to [facility] Derm Team, appt pending Hypertension 06/13/2012 [...] apnea syndrome 06/13/2012 Overview (09/01/2024): [facility] - Dr. Balbir Don Cont w/ CPAP, need updated titration report (home sleep study ordered Jul 2024 per specialist) Assessment & Plan (08/13/2023 8:36 AM EDT): ?? Continues with CPAP nightly ?? Due for settings adjustment, and also reporting intermittent discomfort with mask ?? Referral to [facility] for further eval and management Resolved Problems Problem Noted Date Diagnosed Date Resolved Date Retention of urine 02/26/2015 3 Elevated levels of transamin ase & lactic acid dehydrogenase 08/14/2012 10/20/2022 Encounters Date Type Department Care Team Description 03/11/2025 Orders Only GENERIC EXTERNAL DATA DEPARTMENT Provider, Generic External Data 03/04/2025 1:00 PM EDT Office Visit [facility] [address] [place] [address] Abi Aden MD Mixed anxiety and depressive disorder (Primary Dx); Type 2 diabetes mellitus with hyperglycemia, with long-term current use of insulin ([facility]); Congestive heart failure, unspecified HF chronicity, unspecified heart failure type ([facility]); Psoriatic arthritis ([facility]) 03/04/2025 Travel 02/26/2025 Orders Only GENERIC EXTERNAL DATA DEPARTMENT Provider, Generic External Data 02/21/2025 Patient Outreach [facility] [address] [place] [address] Marilee Cordero FNP Discharge request 02/20/2025 Patient Outreach [facility] [address] [place] [address] Marilee Cordero FNP Transition Of Care (Tcm) (HDF scheduled.) 02/20/2025 Telephone [facility] [address] [place] [address] Marilee Cordero FNP Hospital Follow-up 02/20/2025 Refill [facility] [address] [place] [address] Marilee Cordero FNP Congestive heart failure, unspecified HF chronicity, unspecified heart failure type (CMS/HCC) 02/13/2025 Telephone [facility] [address], [place] [phone] Marilee Cordero FNP May recall 01/28/2025 Telephone [facility] [address] [place], [place] [phone] Marilee Cordero FNP 01/27/2025 9:00 AM EDT Office Visit [facility] [address], [place] [phone] Marilee Cordero FNP Congestive heart failure, unspecified HF chronicity, unspecified heart failure type (CMS/HCC) (Primary Dx); Primary hypertension; Type 2 diabetes mellitus with hyperglycemia, with long-term current use of insulin (CMS/[facility]); Routine health maintenance; Psoriatic arthritis (CMS/[facility]); Hematuria, unspecified type; Psoriasis 01/27/2025 Travel 01/23/2025 Telephone [facility] [address], [place] [phone] Marilee Cordero FNP Chart Prep 12/23/2024 Refill [facility] [address] [place], [place] [phone] Marilee Cordero FNP from Last 3 Months [...] Sign Reading Time Taken Comments Blood Pressure 114/63 03/04/2025 1:05 PM EDT Pulse 69 03/04/2025 1:05 PM EDT Temperature 36.6 ??C (97.9 ??F) 03/04/2025 1:05 PM ED T Respiratory Rate 20 03/04/2025 1:05 PM EDT Oxygen Saturation 91% 03/04/2025 1:05 PM EDT Inhaled Oxygen Concentration - - Weight 104 kg (230 lb) 03/04/2025 1:05 PM EDT Height 182.9 cm (6') 03/04/2025 1:05 PM EDT Body Mass Index 31.19 03/04/2025 1:05 PM EDT Plan of Treatment Upcoming Encounters Date Type Department Care Team (Late st Contact Info) Description 04/28/2025 9:00 AM EDT Office Visit [facility] [address] [place] [address] Marilee Cordero, SIGNAL TESTER [address] [place] [address] Health Maintenance Due Date Last Done Comments [...] Depression Screening 01/27/2026 01/27/2025, 01/28/20 Tobacco Screening 03/05/2026 03/05/2025 Dental X-Ray: Full Mouth 03/19/2027 03/18/2024, 07/01 [...] Procedure Name Priority Date/Time Associated Diagnosis Comments XR CHEST 2 VIEWS Routine 03/11/2025 4:34 PM EDT CBC WITH AUTO DIFFERENTIAL Routine 03/11/2025 4:31 PM EDT SED RATE BY MODIFIED WESTERGREN Routine 03/11/2025 4:31 PM EDT HIGH SENSITIVITY TROPONIN I Routine 03/11/2025 4:31 PM EDT C-REACTIVE PROTEIN Routine 03/11/2025 4: 31 PM EDT MAGNESIUM Routine 03/11/2025 4:31 PM EDT COMPREHENSIVE METABOLIC PANEL Routine 03/11/2025 4:31 PM EDT B TYPE NATRIURETIC PEPTIDE (BNP) Routine 03/11/2025 4:31 PM EDT SARS COV2/INFLUENZA A/B AND RSV RNA QL NAAT Routine 03/11/2025 4:31 PM EDT POCT GLUCOSE Routine 03/04/2025 3:57 PM EDT Type 2 diabetes mellitus with hyperglycemia, with long-term current use of insulin ([facility]) T-SPOT(R).TB Routine 02/26/2025 7:32 AM EDT HEPATITIS [...] hyperglycemia, with long-term current use of insulin ([facility]) POCT GLYCATED HEMOGLOBIN, TOTAL Routine 01/27/2025 9:16 AM EDT Type 2 diabetes mellitus with hyperglycemia, with long-term current use of insulin ([facility]) POCT GLUCOSE Routine 01/27/2025 9:16 AM EDT Type 2 diabetes mellitus with hyperglycemia, with long-term current use of insulin ([facility]) URINALYSIS, COMPLETE, WITH REFLEX TO CULTURE Routine 01/27/2025 9:00 AM EDT Type 2 diabetes mellitus with hyperglycemia, with long-term current use of insulin ([facility]) PANORAMIC RADIOGRAPHIC IMAGE Routine 03/18/2024 9:00 AM EDT ALBUMIN, RANDOM URINE W/CREATININE Routine 12/25/2023 9:50 AM EST Type 2 diabetes mellitus with hyperglycemia, with long-term current use of insulin ([facility]) HIV 1/2 ANTIGEN/ANTIBODY, FOURTH GENERATION W/RFL Routine [...] Recently Relevant to Health Maintenance Results * XR Chest 2 Views (03/11/2025 4:34 PM EDT) Anatomical Region Laterality Modality Chest Radiographic Aleida ging 03/11/2025 4:34 PM EDT Narrative 03/11/2025 4:57 PM EDT ? [facility] ?[address] ?[place] [address] ?XRay Report ? Signed ? Patient: Les,Joesph L ?MR#: [id number] ?? [id number] ? : 1970 ?Acct:[id number] ? Age/Sex: 54 / M ?ADM Date: 03/11/25 ? Loc: HO.ED ? Attending Dr: ? Ordering Physician: Rosemary Herrera NP ?? Date of Service: 03/11/25 ?? Procedure(s): XR chest 2V ?? Accession Number(s): [id number] ? cc: Marilee Cordero SIGNAL TESTER; Rosemary Herrera NP ? EXAMINATION: ?? XR CHEST ? CLINICAL INFORMATION: ?? dyspnea ? COMPARISON: ?? Chest x-ray 03/29/2023 ? TECHNIQUE: ?? 2 views of the chest were obtained. ? FINDINGS: ?? The lungs are hypoexpanded but clear acute pneumonic process. Heart ?? size is borderline enlarged. ??Pulmonary vascularity is increased. No ?? gross bony abnormality seen. There is mild spondylosis dorsal spine. No ?? aggressive lytic or sclerotic process. ? XR/XR chest 2V ?? IMPRESSION: ?? Mild increased pulmonary vascularity question congestion. Heart size is ?? borderline enlarged. ? No acute pneumonic process or pleural effusion. ? Electronically signed by: ??Lorne Palm MD ??03/11/2025 04:54 PM EDT RP ? Dictated By: ?Arpita,Lorne S MD ? Signed By: ?<Electronically signed by Lorne S Arpita, MD in OV> ?03/11/25 1654 ? DD/ 1634 ? TD/TT: 03/11/25 1639 ? Mender Hand: MSM ? Procedure Note Carter Downing - 03/11/2025 [facility] [address] [place] [address] XRay Report Signed Patient: Joesph Saldana LMR#: [id number] : 1970Acct:[id number] Age/Sex: 54 / MADM Date: 03/11/25 Loc: HO.ED Attending Dr: Ordering Physician: Rosemary Herrera NP Date of Service: 03/11/25 Procedure(s): XR chest 2V Accession Number(s): [id number] cc: Marilee Cordero SIGNAL TESTER; Rosemary Herrera NP EXAMINATION: XR CHEST CLINICAL INFORMATION: dyspnea COMPARISON: Chest x-ray 03/29/2023 TECHNIQUE: 2 views of the chest were obtained. FINDINGS: The lungs are hypoexpanded but clear acute pneumonic process. Heart size is borderline enlarged. Pulmonary vascularity is increased. No gross bony abnormality seen. There is mild spondylosis dorsal spine. No aggressive lytic or sclerotic process. XR/XR chest 2V IMPRESSION: Mild increased pulmonary vascularity question congestion. Heart size is borderline enlarged. No acute pneumonic process or pleural effusion. Electronically signed by: Lorne Palm MD 03/11/2025 04:54 PM EDT Dictated By: Lorne Palm MD Signed By: <Electronically signed by Lorne Palm MD in OV> 03/11/25 1654 DD/ 1634 TD/TT: 03/11/25 1639 Mender Hand: [facility] External Provider IMG XR PROCEDURES Final Result * (ABNORMAL) High Sensitivity Troponin I (03/11/2025 4:31 PM EDT) TROPONIN I HIGH SENSITIVITY 40.9(H) <3.5 - 35.0 ng/L [facility] Comment:The [place] high sens itivity Troponin-I results should beused in conjunction with other diagnostic information suchas ECG, clinical observations and information, and patientsymptoms to aid in the diagnosis of LA. 03/11/2025 4:31 PM EDT 03/11/2025 4:35 PM EDT Generic External Data Provider LAB BLOOD ORDERAB LES Final Result Performing Organization Address City/[facility] Co de Phone Number [facility] [address] [place] [phone] * SARS-CoV-2 RNA, Influenza A/B, and RSV RNA, Ql NAAT (03/11/2025 4:31 PM EDT) Pathologist [facility] Influenza A PCR NEGATIVE Negative [facility] Influenza B PCR NEGATIVE Negative [facility] Resp Syncy Virus RNA Qual PCR NEGATIVE Negative [facility] SARS COV2 PCR NEGATIVE Negative [facility] Comment:All test results mus t be correlated with clinical findings.Negative results do not preclude SARS-CoV2, influenza Avirus, influenza B virus and/or RSV infectionand should not be used as the sole basis for treatment orother patient management decisions. Negative results must becombined with clinical observations, patient history, andepidemiological information.This test has not been evaluated for monitoring treatment ofinfection.This test has been authorized by the FDA under an EmergencyUse Authorization (EUA) for use by authorized laboratories.Testing performed on the [place] [employer] GeneXpert utilizingreal-time RT-PCR.All SARS CoV2 and positive influenza A/B results arereported to [facility]. 03/11/2025 4:31 PM EDT 03/11/2025 4:35 PM EDT us Generic External Data Provider LAB MICROBIOLOGY - GENERAL ORDERABLES Final Result Performing Organization Address [facility] Co de Phone Number [facility] [address] [place] [phone] * (ABNORMAL) CBC auto differential (03/11/2025 4:31 PM EDT) Only the most recent of2 resultswithin the time period is included. Pathologist [facility] White Blood Count 7.1 4.8 - 10.8 X10*3/uL [facility] Red Blood Count 3.97(L) 4.60 - 5.80 X10*6/uL [facility] Hemoglobin 11.3(L) 14.0 - 18.0 g/dl [facility] Hematocrit 32.5(L) 42.0 - 52.0 % [facility] Mean Corpuscular Volume 81.9 80.0 - 98.[address] [facility] Mean Corpuscular Hemoglobin 28.5 27.0 - 33.[address] [facility] Mean Corpuscular HGB Conc 34.8 31.0 - 36.0 g/dl [facility] Red Cell Distribution Width 13.8 11.0 - 16.0 % [facility] Platelet Count 173 160 - 400 X10*3/uL [facility] Mean Platelet Volume 9.0(L) 9.4 - 12.[address] [facility] Neutrophils Percent Auto 83.9(H) 45 - 73 % [facility] Imm Gran Pct Auto 0.3 0.0 - 0.4 % [facility] Lymphocytes Percent Auto 6.5(L) 20 - 40 % [facility] Monocytes Percent Auto 7.9 2 - 11 % [facility] Eosinophils Percent Auto 1.1 0 - 4 % [facility] Basophils Percent Auto 0.3 0 - 2 % [facility] NRBC Pct Auto 0.0 0.0 - 0.2 /100WBC [facility] Neutrophils Absolute Auto 5.9 2.0 - 8.3 x10*3/uL [facility] Imm Gran Abs Auto 0.02 0.00 - 0.03 X10*3/uL [facility] Lymphocytes Absolute Auto 0.5(L) 1.2 - 4.9 X10*3/uL [facility] Monocytes Absolute Auto 0.6 0.1 - 1.2 X10*3/uL [facility] Eosinophils Absolute Auto 0.1 0.0 - 0.4 X10*3/uL [facility] Basophils Absolute Auto 0.0 0.0 - 0.2 X10*3/uL [facility] NRBC Abs Auto 0.000 0.0 - 0.012 X10*3/uL [facility] 03/11/2025 4:31 PM EDT 03/11/2025 4:35 PM EDT Generic External Data Provider LAB BLOOD ORDERAB LES Final Result Performing Organization Address [facility] de Phone Number [facility] [address] [place] [address] [phone] * (ABNORMAL) Sed Rate by Modified Williamergren (03/11/2025 4:31 PM EDT) Only the most recent of2 resultswithin the time period is included. Erythrocyte Sedimentation Rate 94(H) 0 - 15 MM/HR [facility] Comment:Patients with polycy themia and many hemoglobin abnormalitiesmay have depressed sed rates whereas patients with anemiamay have elevated sed rates. 03/11/2025 4:31 PM EDT 03/11/2025 4:35 PM EDT Generic External Data Provider LAB BLOOD ORDERAB LES Final Result Performing Organization Address [facility] de Phone Number [facility] [address] [place] [address] [phone] * (ABNORMAL) C-reactive Protein (03/11/2025 4:31 PM EDT) Only the most recent of2 resultswithin the time period is included. Pathologist [facility] C Reactive Protein 3.41(H) < or = 0.50 mg/dL [facility] 03/11/2025 4:31 PM EDT 03/11/2025 4:35 PM EDT Generic External Data Provider LAB BLOOD ORDERAB LES Final Result Performing Organization Address [facility] de Phone Number [facility] [address] [place] [phone] * (ABNORMAL) B Type Natriuretic Peptide (BNP) (03/11/2025 4:31 PM EDT) B Type Natriuretic Peptide 714(H) <100 pg/mL [facility] 03/11/2025 4:31 PM EDT 03/11/2025 4:35 PM EDT us Generic External Data Provider LAB BLOOD ORDERAB LES Final Result Performing Organization Address City/[facility]/ZIP Co de Phone Number [facility] [address] [place] [phone] * Magnesium (03/11/2025 4:31 PM EDT) Magnesium 1.9 1.6 - 2.6 mg/dL [facility] 03/11/2025 4:31 PM EDT 03/11/2025 4:35 PM EDT us Generic External Data Provider LAB BLOOD ORDERAB LES Final Result Performing Organization Address [facility] Co de Phone Number [facility] [address] [place] [phone] * (ABNORMAL) Comprehensive Metabolic Panel (03/11/2025 4:31 PM EDT) Only the most recent of2 resultswithin the time period is included. Pathologist [facility] Sodium 135 135 - 145 mmol/L [facility] Potassium 4.2 3.3 - 5.1 mmol/L [facility] Chloride 100 96 - 108 mmol/L [facility] Carbon Dioxide 27 22 - 29 mmol/L [facility] Anion Gap 12 12 - [address] [facility] Urea Nitrogen (BUN) 15 9 - 16 mg/dL [facility] Creatinine, Serum 0.93 0.5 - 1.4 mg/dL [facility] Creatinine Clr Calc Pharmacy 115.[address] [facility] Comment:eGFR (calculated fro m the MDRD study equation) and eCrCl(calculated from the Cockcroft-Gault equation) are based ondifferent parameters and may not yield comparable results.If eCrCl result is absurd, please check patient'sheight/weight. Estimated Glomerular Filt Rate >60 [facility] Comment:Chronic Kidney Disea se: Estimated GFR < 60 mL/min/1.57y2Anoqvb Kidney Disease: Estimated GFR < 15 mL/min/1.73m2 Glucose 389(HH) 60 - 115 mg/dL [facility] Comment:Critical value for t est(s): GLUR Results called to and readback by: EDIS Person calling: FLEMINC Date: 03/11/25Time: 1708 Calcium 9.0 8.4 - 10.2 mg/dL [facility] Bilirubin, Total 0.8 0.0 - 1.0 mg/dL [facility] Aspartate Amino Transferase 13 5 - 37 U/L [facility] Alanine Aminotransferase 8 0 - 40 U/L [facility] Total Protein 6.5 6.5 - 8.0 g/dL [facility] Albumin Level 3.1(L) 3.5 - 5.0 g/dL [facility] Alkaline Phosphatase 106 39 - 117 U/L [facility] 03/11/2025 4:31 PM EDT 03/11/2025 4:35 PM EDT us Generic External Data Provider LAB BLOOD ORDERAB LES Final Result [facility] [address] [place] [address] [phone] * (ABNORMAL) POCT Glucose (03/04/2025 3:57 PM EDT) Only the most recent of2 resultswithin the time period is included. [facility] Glucose Blood, POC 500(A) 60 - 200 mg/dL QC Media Lot # [id number] Comment:[facility] Lot# Expiration Date [id number] Comment:RANDOM Blood Capillary blood specimen / Unknown 03/04/2025 3:57 PM EDT us Abi Aden MD POINT OF CARE TEST ENTER/ED IT ORDERABLES Final Result * T-SPOT??.TB (02/26/2025 7:32 AM EDT) T Spot TB Negative Negative [facility] Comment:A negative test resu lt [...] as aquantitative test. TS PANEL A [address] [facility] TS PANEL B [address] [facility] Negative Control Passed [facility] Positive Control Passed [facility] Comment:For additional infor serenity, please refer tohttp://education.Passpack/faq/GGI850(This link is being provided for informational/educational purposes only.)REPORT COMMENT:REC IN Q/CHYTHIS TEST WAS PERFORMED AT:[employer] [id number] [place] [id number] RANDHAWA MD,PHD 02/26/2025 7:32 AM EDT 02/26/2025 7:32 AM EDT us Generic External Data Provider LAB BLOOD ORDERAB LES Final Result [facility] [address] [place] [address] [phone] * Hepatitis Panel, General (02/26/2025 7:32 AM EDT) [facility] Hepatitis A IgM Nonreactive Nonreactive [facility] Comment:IgM antibodies to GIBSON V not detected; does not exclude earlyacute or recovered HAV infection. ~Hepatitis B Surface Antibody NONREACTIVE Nonreactive [facility] Comment:Nonreactive: < 8.00 mIU/mL Hepatitis B Core Antibody Nonreactive Nonreactive [facility] Hepatitis C Antibody Nonreactive Nonreactive [facility] Comment:Antibodies to HCV no t detected; does not exclude early acuteHCV infection. Hepatitis B Surface Ag Negative Negative [facility] 02/26/2025 7:32 AM EDT 02/26/2025 7:32 AM EDT us Generic External Data Provider LAB BLOOD ORDERAB LES Final Result [facility] [address] [place] [address] [phone] * (ABNORMAL) POCT Urinalysis (01/27/2025 9:17 [...] Media Lot # [id number] Lot# Expiration Date ,025 Urine 01/27/2025 9:17 AM EDT Marilee Cordero SIGNAL TESTER POINT OF CARE TEST ENTER/EDIT ORDERABLES Final Result * (ABNORMAL) POCT HGB A1C (01/27/2025 9:16 AM EDT) Hemoglobin A1C 10.9(A) 4.0 - 6.0 % QC Media Lot # [id number] Lot# Expiration Date ,026 Blood 01/27/2025 9:16 AM EDT Marilee Cordero [facility] POINT OF CARE TEST ENTER/EDIT ORDERABLES Final Result * (ABNORMAL) Urinalysis, Complete, with Reflex to Culture (01/27/2025 9:00 AM EDT) Color Urine Yellow [facility] Appearance Urine Clear [facility] PH 6.0 5.0 - 9.[address] [facility] Glucose Urine UA >=1000(A) Negative mg/dL [facility] Urine Blood Trace(A) Negative [facility] Specific [place] - Urine 1.020 1.005 - 1.[address] [facility] Urine Protein 300 (3+)(A) Neg-Trace mg/dL [facility] Urine Ketones Negative Negative mg/dL [facility] Nitrite Urine Negative Negative [facility] Leukocyte Esterase Urine Negative Negative [facility] RBC Urine 0-2 0 - 2 /HPF [facility] Urine WBC 0-5 0 - 5 /HPF [facility] Urine Squamous Epithelial Cell 0-2 0 - 2 /HPF [facility] Urine Bacteria None Seen None Seen [facility] Hyaline Casts, Urine 0-2 0 - 2 /LPF [facility] Urine 01/27/2025 9:00 AM EDT 01/27/2025 2:58 PM EDT Narrative [facility] - 01/27/2025 3:18 PM EDT [id number], Clean Catch Marilee Cordero [facility] URINE ORDERABLES Final Res ult [facility] [address] [place], [place] [phone] * (ABNORMAL) Albumin, Random Urine W/Creatinine (12/25/2023 9:50 AM EST) Creatinine, Urine 162.10 mg/dL [facility] Microalbumin Urine >2,000.0 mg/L [facility] Microalbum Creatinine Ratio Ur 1,233.8(H ) <30 ug/mg cr [facility] Comment:Albumin/Creatinine R atio Reference Ranges: Normal: < 30 ug/mg creatinine Microalbuminuria: 30 - 300 ug/mg creatinineClinical Albuminuria: > 300 ug/mg creatinine Urine 12/25/2023 9:50 AM EST 12/25/2023 2:38 PM EST Marilee Cordero [facility] URINE ORDERABLES Final Res ult Performing Organization Address [facility]/ZIP Co de Phone Number [facility] [address] [place] [phone] * HIV-1/2 Antigen and Antibodies, Fourth Generation, with Reflexes (09/13/2023 7:53 AM EST) [facility] HIV AB/AG Nonreactive Nonreactive [facility] Comment:HIV-1 p24 Ag and/or HIV-1/HIV-2 Ab not detected.A test result that is nonreactive does not exclude thepossibility of exposure to or infection with HIV-1 and/orHIV-2. Nonreactive results in this assay for individualswith prior exposure to HIV-1 and/or HIV-2 may be due toantigen and antibody levels that are below the limit ofdetection of this assay.The natue HIV Ag/Ab Combo assay result andsupplemental assay results should be interpreted inconjunction with the patient's clinical presentation,history and other laboratory results. If the results areinconsistent with clinical evidence, additional testing issuggested to confirm the result. Blood Venous blood specimen / Unknown 09/13/2023 7:53 AM EST 09/13/2023 7:53 AM EST Marilee Cordero [facility] BLOOD ORDERABLES Final Res ult Performing Organization Address [facility] Co de Phone Number [facility] [address] [place] [address] [phone] * (ABNORMAL) Lipid Panel, Standard (09/13/2023 7:53 AM EST) Triglycerides 122 <150 mg/dL [facility] Comment:Desirable Triglyceri de: less than 150 mg/dLBorderline High Triglyceride 150-199 mg/dLHigh Triglyceride: 200-499 mg/dLVery High Triglyceride: greater than or equal to 5OO mg/dL Cholesterol 149 <200 mg/dL [facility] Comment:Desirable Cholestero l: less than 200 mg/dLBorderline High Cholesterol: 200-239 mg/dLHigh Cholesterol: greater than 239 mg/dL LDL Cholesterol Calculated 97 <100 mg/dL [facility] Comment:Desirable LDL: less than 100 mg/dLNear Optimal/Above Optimal LDL: 110- 129 mg/dLBorderline High LDL: 130-159 mg/dLHigh LDL: 160-189 mg/dLVery High LDL: greater than or equal to 190 mg/dL HDL Cholesterol 28(L) >40 mg/dL [facility] Comment:Desirable HDL: great er than 40 mg/dL Note: This HDL assay may give artificially low results in patients with liver disease. Blood Venous blood specimen / Unknown 09/13/2023 7:53 AM EST 09/13/2023 7:53 AM EST Marilee Cordero [facility] LAB BLOOD ORDERABLES Final Res ult Performing Organization Address City/State/[facility] Co de Phone Number [facility] [address] [place] [phone] from Last 3 Months or Most Recently Relevant to Health Maintenance Insurance [facility] - HSN PARTIAL (MEDICAID) Care Teams Bilingual Medical Receptionist Relationship Specialty Start Date End Date Marilee Cordero FNP [address] [place] [phone] PCP - General Family Medicine 03/23/23 Cristo Garcia MD [address] [place] [phone] Rheumatology 09/01/24 Doris Candelario [address] [place] [address] Cardiology 09/01/24 Yoselyn Lyons [address] [place] [address] Ophthalmology 09/01/24 Balbir Don 22 [facility] [address] [place] [address] Sleep Medicine 09/01/24 Dr. Ramirez [address] [place] [address] [address] [place] [address] Nephrology 09/01/24
--- OUTSIDE RECORDS SUMMARY | 2025-03-11 18:11 | XMS_ITS | Clinical Summary ---
Author Organization [facility] Address [address] [phone] Phone Care Team Providers Care Photoengraver Name Role Phone Marilee Cordero BRANDEN Primary Care Provider [phone] Allergies No known active allergies Medications amLODIPine [...] Hospitalization for CHF exacerbation: Oct 2023 at [facility] Last Assessment & Plan: - [...] Office Visit [facility] [address] [phone] Jostin Ronquillo MD [address] [phone] Health Maintenance Due Date Last Done Comments [...] 08/30/2024, , 10/17/2022, Additional history exists Insurance [employer] [facility] ([id number]) [employer] Plan ([id number]) Care Teams Photoengraver Relationship Specialty Start Date End Date Marilee Cordero FNP [address] [place] [phone] PCP - General 01/08/24
--- OUTSIDE RECORDS SUMMARY | 2025-03-11 18:11 | XMS_ITS | Continuity of Care Document ---
Author Organization [facility] Address [address] [place] [address] Phone Care Team Providers Care Wind Turbine Engineer Name Role Phone Unavailable Unavailable Unavailable Procedures Procedure Date Psychotherapy, 30 Minutes With Patient S Psych Dx Eval Psychotherapy, 30 Minutes With Patient A Advance Directives Directive Yes / No Effective Date File Name No Information Encounters Encounter Description Practice Location Reason(s) For Visit Diagnoses Date Provider Providers Copied on Encounter Psychotherap y, 30 Minutes With Patient [facility], [address] [place] [address], tel:[phone] [facility] Behavioral Health Individual Therapy (chief complaint) Cannabis use, unspecified, uncomplicatedC ocaine use, unspecified, uncomplicatedM ajor depressive disorder, recurrent, mildPost-traum atic stress disorder, unspecified Sep-0 8 No Information Psych Dx Eval [facility], [address] [place] [address], [facility], tel:[phone] [facility] Behavioral Health Initial Assessment (chief complaint) Major depressive disorder, recurrent, mildPost-traum atic stress disorder, unspecifiedCoc norman use, unspecified, uncomplicatedC annabis use, unspecified, uncomplicated May- 8 No Information Psychotherap y, 30 Minutes With Patient [facility], [address] [place] [address], tel:[phone] [facility] Behavioral Health depression (chief complaint) Major depressive disorder, recurrent, mildPost-traum atic stress disorder, unspecified May-2 2 8 No Information Family History Family Member Type Diagnosis Age At Onset No Information Payers Payer name Insurance type Covered green party ID Authoriza tiluiz(s) BRII Alonso [id number] Social History Type Description Quantity Date Captured [...]
--- OUTSIDE RECORDS SUMMARY | 2025-03-11 18:11 | XMS_ITS | Encounter Summary ---
Author Organization [email or web address] Address [address] [facility] 7[address] [place] [address] Care Team Providers Care Employment Law Attorney Name Role Phone Marilee Cordero PAVING BLOCK CUTTER Primary Care Provider [phone] Cristo Garcia MD Unavailable Doris Candelario Unavailable [phone] Yoselyn Lyons Unavailable Unavailable Balbir Don Unavailable Encounter Details Date Type Department Care Team (Late st Contact Info) Description 03/11/2025 Orders Only GENERIC EXTERNAL DATA DEPARTMENT Provider, Generic External Data Social History Tobacco Use Types Packs/Day Years [...] Description 04/28/2025 9:00 AM EDT Office Visit [facility] [address] [place] [address] Marilee Cordero, BRANDEN [address] [place] [address] documented as of this encounter Procedures Procedure Name Priority Date/Time Associated Diagnosis Comments HIGH SENSITIVITY TROPONIN I Routine 03/11/2025 4:31 PM EDT SARS COV2/INFLUENZA A/B AND RSV RNA QL NAAT Routine 03/11/2025 4:31 PM EDT CBC WITH AUTO DIFFERENTIAL Routine 03/11/2025 4:31 PM EDT SED RATE BY MODIFIED WESTERGREN Routine 03/11/2025 4:31 PM EDT C-REACTIVE PROTEIN Routine 03/11/2025 4: 31 PM EDT B TYPE NATRIURETIC PEPTIDE (BNP) Routine 03/11/2025 4:31 PM EDT MAGNESIUM Routine 03/11/2025 4:31 PM EDT COMPREHENSIVE METABOLIC PANEL Routine 03/11/2025 4:31 PM EDT documented in this encounter Results * (ABNORMAL) CBC auto differential (03/11/2025 4:31 PM EDT) White Blood Count 7.1 4.8 - 10.8 X10*3/uL [facility] Red Blood Count 3.97(L) 4.60 - 5.80 X10*6/uL [facility] Hemoglobin 11.3(L) 14.0 - 18.0 g/dl [facility] Hematocrit 32.5(L) 42.0 - 52.0 % [facility] Mean Corpuscular Volume 81.9 80.0 - 98.0 fL [facility] Mean Corpuscular Hemoglobin 28.5 27.0 - 33.0 pg [facility] Mean Corpuscular HGB Conc 34.8 31.0 - 36.0 g/dl [facility] Red Cell Distribution Width 13.8 11.0 - 16.0 % [facility] Platelet Count 173 160 - 400 X10*3/uL [facility] Mean Platelet Volume 9.0(L) 9.4 - 12.4 fL [facility] Neutrophils Percent Auto 83.9(H) 45 - 73 % [facility] Imm Gran Pct Auto 0.3 0.0 - 0.4 % [facility] Lymphocytes Percent Auto 6.5(L) 20 - 40 % [facility] Monocytes Percent Auto 7.9 2 - 11 % [facility] Eosinophils Percent Auto 1.1 0 - 4 % [facility] Basophils Percent Auto 0.3 0 - 2 % [facility] NRBC Pct Auto 0.0 0.0 - 0.2 /100WBC [facility] Neutrophils Absolute Auto 5.9 2.0 - 8.3 x10*3/uL [facility] Imm Gran Abs Auto 0.02 0.00 - 0.03 X10*3/uL [facility] Lymphocytes Absolute Auto 0.5(L) 1.2 - 4.9 X10*3/uL [facility] Monocytes Absolute Auto 0.6 0.1 - 1.2 X10*3/uL [facility] Eosinophils Absolute Auto 0.1 0.0 - 0.4 X10*3/uL [facility] Basophils Absolute Auto 0.0 0.0 - 0.2 X10*3/uL [facility] NRBC Abs Auto 0.000 0.0 - 0.012 X10*3/uL [facility] 03/11/2025 4:31 PM EDT 03/11/2025 4:35 PM EDT us Generic External Data Provider LAB BLOOD ORDERAB LES Final Result Performing Organization Address City/[facility]/ZIP Co de Phone Number [facility] [address] [place] [address] [phone] * (ABNORMAL) Sed Rate by Modified Williamergren (03/11/2025 4:31 PM EDT) Erythrocyte Sedimentation Rate 94(H) 0 - 15 MM/HR [facility] Comment:Patients with polycy themia and many hemoglobin abnormalitiesmay have depressed sed rates whereas patients with anemiamay have elevated sed rates. 03/11/2025 4:31 PM EDT 03/11/2025 4:35 PM EDT us Generic External Data Provider LAB BLOOD ORDERAB LES Final Result Performing Organization Address City/[facility]/ZIP Co de Phone Number [facility] [address] [place] [phone] * SARS-CoV-2 RNA, Influenza A/B, and RSV RNA, Ql NAAT (03/11/2025 4:31 PM EDT) Pathologist [facility] Influenza A PCR NEGATIVE Negative [facility] Influenza B PCR NEGATIVE Negative [facility] Resp Syncy Virus RNA Qual PCR NEGATIVE Negative [facility] SARS COV2 PCR NEGATIVE Negative [facility] Comment:All test results mus t be [...] use by authorized laboratories.Testing performed on the [employer] GeneXpert utilizingreal-time RT-PCR.All SARS CoV2 and positive influenza A/B results arereported to [facility]. 03/11/2025 4:31 PM EDT 03/11/2025 4:35 PM EDT Generic External Data Provider LAB MICROBIOLOGY - GENERAL ORDERABLES Final Result Performing Organization Address [facility] de Phone Number [facility] [address] [place] [phone] * (ABNORMAL) High Sensitivity Troponin I (03/11/2025 4:31 PM EDT) TROPONIN I HIGH SENSITIVITY 40.9(H) <3.5 - 35.0 ng/L [facility] Comment:The [place] high sens itivity Troponin-I results should beused in conjunction with other diagnostic information suchas ECG, clinical observations and information, and patientsymptoms to aid in the diagnosis of [place]. 03/11/2025 4:31 PM EDT 03/11/2025 4:35 PM EDT Generic External Data Provider LAB BLOOD ORDERAB LES Final Result Performing Organization Address [facility] Co de Phone Number [facility] [address] [place] [phone] * (ABNORMAL) C-reactive Protein (03/11/2025 4:31 PM EDT) C Reactive Protein 3.41(H) < or = 0.50 mg/dL [facility] 03/11/2025 4:31 PM EDT 03/11/2025 4:35 PM EDT us Generic External Data Provider LAB BLOOD ORDERAB LES Final Result Performing Organization Address City/[facility]/ZIP Co de Phone Number [facility] [address] [place] [phone] * Magnesium (03/11/2025 4:31 PM EDT) Magnesium 1.9 1.6 - 2.6 mg/dL [facility] 03/11/2025 4:31 PM EDT 03/11/2025 4:35 PM EDT Generic External Data Provider LAB BLOOD ORDERAB LES Final Result Performing Organization Address [facility] Co de Phone Number [facility] [address] [place] [phone] * (ABNORMAL) Comprehensive Metabolic Panel (03/11/2025 4:31 PM EDT) Sodium 135 135 - 145 mmol/L [facility] Potassium 4.2 3.3 - 5.1 mmol/L [facility] Chloride 100 96 - 108 mmol/L [facility] Carbon Dioxide 27 22 - 29 mmol/L [facility] Anion Gap 12 12 - 20 [facility] Urea Nitrogen (BUN) 15 9 - 16 mg/dL [facility] Creatinine, Serum 0.93 0.5 - 1.4 mg/dL [facility] Creatinine Clr Calc Pharmacy 115.7 [facility] Comment:eGFR (calculated fro m the MDRD study equation) and eCrCl(calculated from the Cockcroft-Gault equation) are based ondifferent parameters and may not yield comparable results.If eCrCl result is absurd, please check patient'sheight/weight. Estimated Glomerular Filt Rate >60 [facility] Comment:Chronic Kidney Disea se: Estimated GFR < 60 mL/min/1.75s6Ovishn Kidney Disease: Estimated GFR < 15 mL/min/1.73m2 Glucose 389(HH) 60 - 115 mg/dL [facility] Comment:Critical value for t est(s): GLUR Results called to and readback by: EDIS Person calling: ARMANDOHODAN Date: 03/11/25Time: 1708 Calcium 9.0 8.4 - 10.2 mg/dL [facility] Bilirubin, Total 0.8 0.0 - 1.0 mg/dL [facility] Aspartate Amino Transferase 13 5 - 37 U/L [facility] Alanine Aminotransferase 8 0 - 40 U/L [facility] Total Protein 6.5 6.5 - 8.0 g/dL [facility] Albumin Level 3.1(L) 3.5 - 5.0 g/dL [facility] Alkaline Phosphatase 106 39 - 117 U/L [facility] 03/11/2025 4:31 PM EDT 03/11/2025 4:35 PM EDT us Generic External Data Provider LAB BLOOD ORDERAB LES Final Result Performing Organization Address [facility]/ZIP Co de Phone Number [facility] [address] [place] [address] [phone] * (ABNORMAL) B Type Natriuretic Peptide (BNP) (03/11/2025 4:31 PM EDT) B Type Natriuretic Peptide 714(H) <100 pg/mL [facility] 03/11/2025 4:31 PM EDT 03/11/2025 4:35 PM EDT us Generic External Data Provider LAB BLOOD ORDERAB LES Final Result Performing Organization Address [facility] Co de Phone Number [facility] [address] [place] [phone] documented in this encounter Visit Diagnoses Not on filedocumented in this encounter Additional Health Concerns Assessment Noted Time PHQ-9 Depression Total Score: 13 01/27/2 025 8:59 AM EDT documented as of this encounter Care Teams Employment Law Attorney Relationship Specialty Start Date End Date Marilee Cordero FNP [address] [place] [address] PCP - General Family Medicine 03/23/23 Cristo Garcia MD [address] [place] [address] Rheumatology 09/01/24 Doris Candelario [address] [place] [address] Cardiology 09/01/24 Yoselyn Lyons [address] [place] [address] Ophthalmology 09/01/24 Balbir Don 22 [facility] [address] [place] [address] Sleep Medicine 09/01/24 Dr. Ramirez 100 [facility] [address] [place] [address] Nephrology 09/01/24 documented as of this encounter
--- OUTSIDE RECORDS SUMMARY | 2025-03-11 18:12 | XMS_ITS | Clinical Summary ---
Author Organization [facility] Address [address] [place] [phone] Phone Care Team Providers Care Ship'S Electronic Warfare Officer Name Role Phone Unavailable Primary Care Provider [...] - 02/19/2025 5:05 PM EDT Hospital Encounter [facility] [address] [place] [address] Saavedra, TinDO Yasmin Chang Carlos M, MD Kokosadze, Estate, MD Rasul, Yar M, MD Edema, unspecified type (Primary Dx); Acute midline low back pain with right-sided sciatica; Proteinuria, unspecified type; Respiratory failure, unspecified chronicity, unspecified whether with hypoxia or hypercapnia ([facility] [place], [facility] V28); Acute pulmonary edema ([facility]24, [facility] V28); Hypoxia Discharge Disposition: Home or Self Care from Last 3 Months Surgical History Surgery Date Site/Laterality Comments OTHER SURGICAL HISTORY 07/03/2002 PROCEDURE: HISTORY OTHER; COMMENT: nasal septal reconstruction with laser turbinectomy Medical History Medical History Date Comments HTN (hypertension) 06/04/2012 DX:HTN (hyper tension) DM2 (diabetes mellitus, type 2) ([facility]24, [facility] V28) 06/04/2012 DX:DM2 (diabetes mellitus, t ype 2) ([facility]) Obstructive sleep apnea 06/04/2012 DX:Obstr uctive sleep apnea Psoriatic arthritis ([facility] V24, [facility] V28) 06/04/2012 DX:Psoriatic arthritis ([facility]) Hyperlipidemia 06/04/2012 DX:Hyperlipidemi a; COMMENT: IMO update [...] Heart attack Other cousins with fa [place] 40's Asthma Sister Relation Name Status Comments [...] LIGHT CHAINS Routine 02/16/2025 2:01 PM EDT OR PROTEIN ELECTROPHORETIC FRACTIONATION & QUANTITATION SERUM Routine [...] of18 resultswithin the time period is included. [facility] Signature Glucose POCT 260(H) 70 - 100 mg/dL 02/19/2025 3:18 PM EDT [facility] Blood Capillary blood specimen / Unknown 02/19/2025 3:18 PM EDT 02/19/2025 3:19 PM EDT us Torres Sanchez MD LAB POINT OF CARE TE ST DOCKED DEVICE UNSOLICITED RESULTS Final Result [facility] [address] [place] [address], * (ABNORMAL) CBC auto differential (02/19/2025 6:01 AM EDT) Only the most recent of5 resultswithin the time period is included. WBC 8.8 4.8 - 10.8 K/mcL LAB HEMETOLOGY METHOD 02/19/2025 6:48 AM EDT [facility] RBC 4.00(L) 4.50 - 5.50 M/mcL LAB HEMETOLOGY METHOD 02/19/2025 6:48 AM EDT [facility] Hemoglobin 11.2(L) 13.5 - 17.5 g/dL LAB HEMETOLOGY METHOD 02/19/2025 6:48 AM EDT [facility] Hematocrit 34.1(L) 42.0 - 54.0 % LAB HEMETOLOGY METHOD 02/19/2025 6:48 AM EDT [facility] MCV 85.0 79.0 - 98.0 FL LAB HEMETOLOGY METHOD 02/19/2025 6:48 AM EDT [facility] MCH 27.9 27.0 - 32.0 pcg LAB HEMETOLOGY METHOD 02/19/2025 6:48 AM EDT [facility] MCHC 32.8 32.0 - 37.0 g/dL LAB HEMETOLOGY METHOD 02/19/2025 6:48 AM EDT [facility] RDW 12.8 11.0 - 15.0 % LAB HEMETOLOGY METHOD 02/19/2025 6:48 AM EDT [facility] Platelets 281 130 - 400 K/mcL LAB HEMETOLOGY METHOD 02/19/2025 6:48 AM EDT [facility] MPV 9.6 7.0 - 11.0 FL LAB HEMETOLOGY METHOD 02/19/2025 6:48 AM [facility] NRBC 0.0 <1.0 % LAB HEMETOLOGY METHOD 02/19/2025 6:48 AM [facility] NRBC Absolute 0.00 <0.10 K/mcL LAB HEMETOLOGY METHOD 02/19/2025 6:48 AM [facility] Neutrophils Relative 79.4 % LAB HEMETOLOGY METHOD 02/19/2025 6:48 AM [facility] Lymphocytes Relative 7.8 % LAB HEMETOLOGY METHOD 02/19/2025 6:48 AM [facility] Monocytes Relative 9.1 % LAB HEMETOLOGY METHOD 02/19/2025 6:48 AM [facility] Eosinophils Relative 2.9 % LAB HEMETOLOGY METHOD 02/19/2025 6:48 AM [facility] Basophils Relative 0.2 % LAB HEMETOLOGY METHOD 02/19/2025 6:48 AM [facility] Immature Granulocytes Relative 0.6 % LAB HEMETOLOGY METHOD 02/19/2025 6:48 AM [facility] Neutrophils Absolute 6.96 1.50 - 7.00 K/mcL LAB HEMETOLOGY METHOD 02/19/2025 6:48 AM [facility] Lymphocytes Absolute 0.68(L) 1.00 - 5.00 K/mcL LAB HEMETOLOGY METHOD 02/19/2025 6:48 AM [facility] Monocytes Absolute 0.80 0.20 - 1.00 K/mcL LAB HEMETOLOGY METHOD 02/19/2025 6:48 AM [facility] Eosinophils Absolute 0.25 0.00 - 0.50 K/mcL LAB HEMETOLOGY METHOD 02/19/2025 6:48 AM [facility] Basophils Absolute 0.02 0.00 - 0.20 K/mcL LAB HEMETOLOGY METHOD 02/19/2025 6:48 AM EDT [facility] Immature Granulocytes Absolute 0.05(H) 0.00 - 0.03 K/mcL LAB HEMETOLOGY METHOD 02/19/2025 6:48 AM EDT [facility] Blood Venous blood specimen / Unknown Venipuncture / Unknown 02/19/2025 6:01 AM EDT 02/19/2025 6:18 AM EDT us Torres Sanchez MD LAB BLOOD ORDERABLES Final Resul t [facility] [address] [place] [address], [place] [phone] * (ABNORMAL) Basic metabolic panel (02/19/2025 6:01 AM EDT) Only the most recent of5 resultswithin the time period is included. Sodium 136 133 - 145 mmol/L LAB CHEMISTRY METHOD 02/19/2025 7:13 AM [facility] Potassium 3.6 3.5 - 5.5 mmol/L LAB CHEMISTRY METHOD 02/19/2025 7:13 AM [facility] Chloride 98 96 - 110 mmol/L LAB CHEMISTRY METHOD 02/19/2025 7:13 AM [facility] CO2 35(H) 21 - 32 mmol/L LAB CHEMISTRY METHOD 02/19/2025 7:13 AM [facility] Anion Gap 3 3 - 11 LAB CHEMISTRY METHOD 02/19/2025 7:13 AM [facility] Glucose 258(H) 70 - 100 mg/dL LAB CHEMISTRY METHOD 02/19/2025 7:13 AM [facility] BUN 19 5 - 25 mg/dL LAB CHEMISTRY METHOD 02/19/2025 7:13 AM EDT [facility] Creatinine 1.08 0.70 - 1.30 mg/dL LAB CHEMISTRY METHOD 02/19/2025 7:13 AM EDT [facility] eGFR 82 >=60 mL/min/1. 73m2 LAB CHEMISTRY METHOD 02/19/2025 7:13 AM EDT [facility] Comment:Calculation based on the??Chronic Kidney Disease Epidemiology Collaboration (CKD-EPI) equation refit??without adjustment for race. BUN/Creatinine Ratio 17.6 LAB CHEMISTRY METHOD 02/19/2025 7:13 AM EDT [facility] Calcium 8.2(L) 8.5 - 10.5 mg/dL LAB CHEMISTRY METHOD 02/19/2025 7:13 AM EDT [facility] Blood Venous blood specimen / Unknown Venipuncture / Unknown 02/19/2025 6:01 AM EDT 02/19/2025 6:17 AM EDT us Torres Sanchez MD LAB BLOOD ORDERABLES Final Resul t Performing Organization Address City/[facility]/ZIP Co de Phone Number [facility] [address] [place] [address], [place] [phone] * (ABNORMAL) MRSA molecular study (02/18/2025 10:18 AM EDT) MRSA Screen PCR Detected (A) Not Detected LAB MICROBIOLOGY METHOD 02/18/2025 11:35 AM EDT [facility] Swab Both anterior nares / Unknown Non-blood Collection / Unknown 02/18/2025 10:18 AM EDT 02/18/2025 10:22 AM EDT us Torres Sanchez MD LAB MICROBIOLOGY - GENERAL ORDER HAN Final Result Performing Organization Address [facility]/ZIP Co de Phone Number [facility] [address] [place] [address], [place] [phone] * (ABNORMAL) TRANSTHORACIC ECHOCARDIOGRAM (TTE) COMPLETE W/ [...] 3.8 cm2 CV PACS Left Atrium Minor [place] 5.8 cm CV PACS Left Atrium Major [place] 6.3 cm CV PACS LA Area Sys [...] LAB HEMETOLOGY METHOD 02/17/2025 6:15 PM EDT [facility] Hematocrit 36.9(L) 42.0 - 54.0 % LAB HEMETOLOGY METHOD 02/17/2025 6:15 PM EDT [facility] Blood Venous blood specimen / Unknown Venipuncture / Unknown 02/17/2025 5:45 PM EDT 02/17/2025 5:56 PM EDT Torres Sanchez MD LAB BLOOD ORDERABLES Final Resul t [facility] [address] [place] [address], [place] [phone] * (ABNORMAL) Prothrombin time with INR (02/17/2025 5:45 PM EDT) Only the most recent of2 resultswithin the time period is included. Protime 16.7(H) 10.6 - 13.9 sec LAB COAGULATION METHOD 02/17/2025 6:05 PM EDT [facility] INR 1.3 LAB COAGULATION METHOD 02/17/2025 6:05 PM EDT [facility] Blood Venous blood specimen / Unknown Venipuncture / Unknown 02/17/2025 5:45 PM EDT 02/17/2025 5:56 PM EDT Torres Sanchez MD LAB BLOOD ORDERABLES Final Resul t [facility] [address] [place] [address], [place] [phone] * (ABNORMAL) Protein and creatinine with ratio, urine (02/17/2025 12:45 PM EDT) Protein, Urine 141 mg/dL LAB CHEMISTRY METHOD 02/18/2025 7:21 AM EDT [facility] Prot/Creat, Ur 6.41(H) <=0.20 mg/mg creat LAB CHEMISTRY METHOD 02/18/2025 7:21 AM EDT [facility] Creatinine, Urine 22.0 mg/dL LAB CHEMISTRY METHOD 02/18/2025 7:21 AM EDT [facility] Urine Urine specimen from urethra / Unknown Non-blood Collection / Unknown 02/17/2025 12:45 PM EDT 02/18/2025 7:02 AM EDT Ish David MD LAB URINE ORDERABLES Final Res ult Performing Organization Address City/[facility]/ZIP Co de Phone Number [facility] [address] [place] [address], [place] [phone] * Protein, urine, random (02/17/2025 12:45 PM EDT) Protein, Urine 144 mg/dL LAB CHEMISTRY METHOD 02/17/2025 2:48 PM EDT [facility] Urine Urine specimen obtained by clean catch procedure / Unknown Non-blood Collection / Unknown 02/17/2025 12:45 PM EDT 02/17/2025 1:36 PM EDT Felicia Morrell NP LAB URINE ORDERABLES Final Res ult Performing Organization Address City/[facility]/ZIP Co de Phone Number [facility] [address] [place] [address], [place] [phone] * Yellow urine no additive (02/17/2025 12:42 PM EDT) Extra Tube Hold for add-ons. 02/17/2025 3:01 PM EDT [facility] Comment:Auto resulted. Urine Urine specimen obtained by clean catch procedure / Unknown 02/17/2025 12:42 PM EDT 02/17/2025 1:38 PM EDT Torres Sanchez MD LAB URINE ORDERABLES Final Resul t Performing Organization Address [facility] Co de Phone Number [facility] [address] [place] [address], [place] [phone] * (ABNORMAL) Anti-Xa - Every 6 Hours (02/17/2025 9:57 AM EDT) Only the most recent of7 resultswithin the time period is included. Heparin Anti-Xa <0.04(L) 0.30 - 0.70 I Unit/mL LAB COAGULATION METHOD 02/17/2025 10:28 AM EDT [facility] Blood Venous blood specimen / Unknown Venipuncture / Unknown 02/17/2025 9:57 AM EDT 02/17/2025 10:04 AM EDT Narrative [facility] - 02/17/2025 10:28 AM EDT Therapeutic range listed is for Unfractionated Heparin. LMW Heparin therapeutic range: 0.50-1.20 IU/mL Elizabeth Lora MD LAB BLOOD ORDERABLES Final R esult Performing Organization Address City/[facility]/ZIP Co de Phone Number [facility] [address] [place] [address], [place] [phone] * (ABNORMAL) B-type natriuretic peptide (02/17/2025 9:56 AM EDT) BNP 656(H) <=100 pcg/mL LAB CHEMISTRY METHOD 02/17/2025 10:42 AM EDT [facility] Blood Venous blood specimen / Unknown Venipuncture / Unknown 02/17/2025 9:56 AM EDT 02/17/2025 10:04 AM EDT us Torres Sanchez MD LAB BLOOD ORDERABLES Final Resul t [facility]) [facility] [address] [place] [address], [place] [phone] * (ABNORMAL) Whitney-lambda free light chains, quantitative (02/16/2025 2:01 PM EDT) Pathologist [facility] Whitney Free Light Chain 6.10(H) 0.33 - 1.94 mg/dL 02/19/2025 10:46 AM EDT [facility] Lambda Free Light Chain 3.64(H) 0.57 - 2.63 mg/dL 02/19/2025 10:46 AM EDT [facility] Whitney/Lambda FLC Ratio 1.68(H) 0.26 - 1.65 02/19/2025 10:46 AM EDT [facility] Comment: Test performed at [facility], [address] , [place], [place] ??[address] ? [phone] Sarah Gregg MD, PhD - Violin Tutor Blood Venous blood specimen / Unknown Venipuncture / Unknown 02/16/2025 2:01 PM EDT 02/16/2025 2:05 PM EDT us Ish David MD LAB BLOOD ORDERABLES Final Res ult [facility] [address] [place] [address] * Hepatitis C antibody (02/16/2025 2:00 PM EDT) Hepatitis C Antibody Negative Negative LAB CHEMISTRY METHOD 02/16/2025 5:37 PM EDT [facility] Blood Venous blood specimen / Unknown Venipuncture / Unknown 02/16/2025 2:00 PM EDT 02/16/2025 2:05 PM EDT Ish David MD LAB BLOOD ORDERABLES Final Res ult Performing Organization Address [facility]/ZIP Co de Phone Number [facility] [address] [place] [address], [place] [phone] * Hepatitis B surface antigen with reflex to confirmation (02/16/2025 2:00 PM EDT) Pathologist [facility] Hepatitis B Surface Ag Negative Negative LAB CHEMISTRY METHOD 02/16/2025 5:34 PM EDT [facility] Blood Venous blood specimen / Unknown Venipuncture / Unknown 02/16/2025 2:00 PM EDT 02/16/2025 2:05 PM EDT Narrative [facility] - 02/16/2025 5:34 PM EDT Over the counter supplements containing high doses of biotin may interfere with this assay. ??If interference is suspected, patients shoud be retested after refraining from biotin supplements for 72 hours. us Ish David MD LAB BLOOD ORDERABLES Final Res ult [facility] [address] [place] [address], [place] [phone] * PATHOLOGIST REVIEW PROTEIN ELECTROPHORESIS (02/16/2025 2:00 PM EDT) Pathologist Interpretation 02/18/2025 5:34 PM EDT [facility] Blood Venous blood specimen / Unknown Venipuncture / Unknown 02/16/2025 2:00 PM EDT 02/16/2025 2:05 PM EDT us Ish David MD LAB BLOOD ORDERABLES Final Res ult Performing Organization Address [facility] de Phone Number [facility] [address] [place] [address], [place] [phone] * Anti-neutrophilic cytoplasmic antibody (02/16/2025 2:00 PM EDT) Pathologist [facility] Myeloperoxidase Ab Negative Negative LAB CHEMISTRY METHOD 02/19/2025 12:50 PM EDT [facility] Myeloperoxidase Ab, Quant 2 <=20 units LAB CHEMISTRY METHOD 02/19/2025 12:50 PM EDT [facility] Proteinase-3 Ab Negative Negative LAB CHEMISTRY METHOD 02/19/2025 12:50 PM EDT [facility] Proteinase-3 Ab Quant 3 <=20 units LAB CHEMISTRY METHOD 02/19/2025 12:50 PM EDT [facility] Blood Venous blood specimen / Unknown Venipuncture / Unknown 02/16/2025 2:00 PM EDT 02/16/2025 2:05 PM EDT us Ish David MD LAB BLOOD ORDERABLES Final Res ult Performing Organization Address [facility]/ZIP Co de Phone Number [facility] [address] [place] [address], [place] [phone] * C3 complement (02/16/2025 2:00 PM EDT) C3 Complement 158 88 - 201 mg/dL LAB CHEMISTRY METHOD 02/16/2025 2:36 PM EDT [facility] Blood Venous blood specimen / Unknown Venipuncture / Unknown 02/16/2025 2:00 PM EDT 02/16/2025 2:05 PM EDT Ish David MD LAB BLOOD ORDERABLES Final Res ult Performing Organization Address City/[facility]/ZIP Co de Phone Number [facility] [address] [place] [address], [place] [phone] * C4 complement (02/16/2025 2:00 PM EDT) [facility] C4 Complement 28 16 - 47 mg/dL LAB CHEMISTRY METHOD 02/16/2025 2:36 PM EDT [facility] Blood Venous blood specimen / Unknown Venipuncture / Unknown 02/16/2025 2:00 PM EDT 02/16/2025 2:05 PM EDT Ish David MD LAB BLOOD ORDERABLES Final Res ult Performing Organization Address [facility]/ZIP Co de Phone Number [facility] [address] [place] [address], [place] [phone] * (ABNORMAL) Protein electrophoresis, serum (02/16/2025 2:00 PM EDT) [facility] Total Protein 5.8(L) 6.0 - 8.0 g/dL LAB CHEMISTRY METHOD 02/18/2025 5:34 PM EDT [facility] Albumin, Serum 2.4(L) 2.9 - 4.1 g/dL LAB CHEMISTRY METHOD 02/18/2025 5:34 PM EDT [facility] Alpha 1 Globulin (g/dL) 0.5 0.1 - 0.5 g/dL LAB CHEMISTRY METHOD 02/18/2025 5:34 PM EDT [facility] Alpha 2 Globulin (g/dL) 1.1 0.7 - 1.5 g/dL LAB CHEMISTRY METHOD 02/18/2025 5:34 PM EDT [facility] Beta (g/dL) 1.0 0.7 - 1.5 g/dL LAB CHEMISTRY METHOD 02/18/2025 5:34 PM EDT [facility] Gamma Globulin (g/dL) 0.7 0.7 - 1.9 g/dL LAB CHEMISTRY METHOD 02/18/2025 5:34 PM EDT [facility] SPEP Interpretation No M-Abdiaziz seen. Hypoalbuminem ia, suggestive of malnutrition, decreased hepatic synthesis or renal/GI loss ? LAB CHEMISTRY METHOD 02/18/2025 5:34 PM EDT [facility] Blood Venous blood specimen / Unknown Venipuncture / Unknown 02/16/2025 2:00 PM EDT 02/16/2025 2:05 PM EDT us Ish David MD LAB BLOOD ORDERABLES Final Res ult Performing Organization Address [facility]/ZIP Co de Phone Number [facility] [address] [place] [address], [place] [phone] * (ABNORMAL) Protein, total (02/16/2025 2:00 PM EDT) Total Protein 5.8(L) 6.0 - 8.0 g/dL LAB CHEMISTRY METHOD 02/16/2025 2:37 PM EDT [facility] Blood Venous blood specimen / Unknown Venipuncture / Unknown 02/16/2025 2:00 PM EDT 02/16/2025 2:05 PM EDT us Ish David MD LAB BLOOD ORDERABLES Final Res ult [facility] [address] [place] [address], [place] [phone] * MR Angio Abdomen wo and w [...] by: Poppy Felix MD on 02/16/2025 15:27:47 [facility] MRI PROCEDURES Final Res ult * (ABNORMAL) CBC - Every 3 Days (02/16/2025 3:05 AM EDT) WBC 12.3(H) 4.8 - 10.8 K/mcL LAB HEMETOLOGY METHOD 02/16/2025 3:15 AM EDT [facility] RBC 3.80(L) 4.50 - 5.50 M/mcL LAB HEMETOLOGY METHOD 02/16/2025 3:15 AM EDT [facility] Hemoglobin 11.0(L) 13.5 - 17.5 g/dL LAB HEMETOLOGY METHOD 02/16/2025 3:15 AM EDT [facility] Hematocrit 32.3(L) 42.0 - 54.0 % LAB HEMETOLOGY METHOD 02/16/2025 3:15 AM EDT [facility] MCV 84.1 79.0 - 98.0 FL LAB HEMETOLOGY METHOD 02/16/2025 3:15 AM EDT [facility] MCH 28.6 27.0 - 32.0 pcg LAB HEMETOLOGY METHOD 02/16/2025 3:15 AM EDT [facility] MCHC 34.1 32.0 - 37.0 g/dL LAB HEMETOLOGY METHOD 02/16/2025 3:15 AM T [facility] RDW 12.8 11.0 - 15.0 % LAB HEMETOLOGY METHOD 02/16/2025 3:15 AM EDT [facility] Platelets 239 130 - 400 K/mcL LAB HEMETOLOGY METHOD 02/16/2025 3:15 AM EDT [facility] MPV 9.6 7.0 - 11.0 FL LAB HEMETOLOGY METHOD 02/16/2025 3:15 AM EDT [facility] NRBC 0.0 <1.0 % LAB HEMETOLOGY METHOD 02/16/2025 3:15 AM EDT [facility] NRBC Absolute 0.00 <0.10 K/mcL LAB HEMETOLOGY METHOD 02/16/2025 3:15 AM EDT [facility] Blood Venous blood specimen / Unknown Venipuncture / Unknown 02/16/2025 3:05 AM EDT 02/16/2025 3:11 AM EDT us Sunitha DORSEY LAB BLOOD ORDERABLES Final Resul t [facility] [address] [place] [address], [place] [phone] * Magnesium (02/16/2025 3:05 AM EDT) Only the most recent of2 resultswithin the time period is included. Pathologist [facility] Magnesium 2.2 1.9 - 2.6 mg/dL LAB CHEMISTRY METHOD 02/16/2025 3:46 AM EDT [facility] Blood Venous blood specimen / Unknown Venipuncture / Unknown 02/16/2025 3:05 AM EDT 02/16/2025 3:11 AM EDT Neo Hoffman MD LAB BLOOD ORDERABLES Final Re sult [facility] [address] [place] [address], * Activated Partial Thromboplastin Time - STAT (02/15/2025 7:48 PM EDT) [facility] aPTT 30.4 24.1 - 39.3 sec LAB COAGULATION METHOD 02/15/2025 9:32 PM EDT [facility] Blood Venous blood specimen / Unknown Venipuncture / Unknown 02/15/2025 7:48 PM EDT 02/15/2025 8:05 PM EDT Sunitha DORSEY LAB BLOOD ORDERABLES Final Resul t [facility] [address] [place] [address], * (ABNORMAL) D-Dimer (02/15/2025 7:48 PM EDT) [facility] D-Dimer, Quant (D-DU) 525(H) <=230 ng/mL DDU LAB COAGULATION METHOD 02/15/2025 8:23 PM EDT [facility] Blood Venous blood specimen / Unknown Venipuncture / Unknown 02/15/2025 7:48 PM EDT 02/15/2025 8:05 PM EDT Narrative [facility] - 02/15/2025 8:23 PM EDT D-Dimer <230 ng/mL (D-Dimer units) is the threshold for exclusion of DVT/PE. D-Dimer may be elevated in: Critically ill, severely infected, trauma patients, DIC, acute CVA, acute [place], unstable angina, AF, old age, , and smoking. D-Dimer may be decreased with: Initiation of heparin therapy and oral anticoagulants. us Felicia Morrell DIRECTOR [employer]ERIN[employer] LAB BLOOD ORDERABLES Final Res ult [facility] [address] [place] [address], [place] [phone] * CT Angio Chest/Abdomen/Pelvis wo and/or w [...] and bilateral inguinal lymphadenopathy, nonspecific. Telerad WILLIAN ([id number]) -------- FINAL REPORT -------- Dictated By: Parris Gardner Dictated Date: 02/15/2025 14:47 ET Assigned Physician: Parris Gardner Reviewed and Electronically Signed By: Parris Gardner Signed Date: 02/15/2025 15:01 ET Workstation ID: [id number] Transcribed By: Self Edit Transcribed Date: 02/15/2025 [...] the thorax were obtained. DLP: 2436.00 mGy/cm [employer] VCT Iterative reconstruction technique Findings: Precontrast images [...] throughthe thorax were obtained. DLP: 2436.00 mGy/cm [employer] Wild[employer]PP[employer]ai VCT Iterative reconstruction technique Findings: Precontrast images [...] retroperitoneal and bilateral inguinallymphadenopathy, nonspecific. Telerad WILLIAN ([id number]) -------- FINAL REPORT -------- Dictated By: Parris Gardner Dictated Date: 02/15/2025 14:47 ET Assigned Physician: Parris Gardner Reviewed and Electronically Signed By: Parris Gardner Signed Date: 02/15/2025 15:01 ET Workstation ID: [id number] Transcribed By: Self Edit Transcribed Date: 02/15/2025 14:47 ET us Zaida Saavedra DO IMG CT PROCEDURES Final R esult * XR Lumbar Spine 2-3 Views (02/15/2025 1:53 PM EDT) Anatomical Region Laterality Modality Spine, L-spine Radiographic Aleida ging 02/15/2025 1:55 PM EDT Impressions 02/15/2025 1:56 PM EDT Impression: No evidence of lumbar spine fracture or subluxation. Telerad PA ([id number]) -------- FINAL REPORT -------- Dictated By: Parris Gardner Dictated Date: 02/15/2025 13:55 ET Assigned Physician: Parris aGrdner Reviewed and Electronically Signed By: Parris Gardner Signed Date: 02/15/2025 13:56 ET Workstation ID: [id number] Transcribed By: Self Edit Transcribed Date: 02/15/2025 [...] lumbar spine fracture or subluxation. Telerad PA ([id number]) -------- FINAL REPORT -------- Dictated By: Parris Gardner Dictated Date: 02/15/2025 13:55 ET Assigned Physician: Parris Gardner Reviewed and Electronically Signed By: Parris Gardner Signed Date: 02/15/2025 13:56 ET Workstation ID: [id number] Transcribed By: Self Edit Transcribed Date: 02/15/2025 13:55 ET Zaida Saavedra DO IMG XR PROCEDURES Final R esult * XR Chest 2 Views (02/15/2025 1:53 PM EDT) Anatomical Region Laterality Modality Body Radiographic Aleida ging 02/15/2025 1:57 PM EDT Impressions 02/15/2025 1:58 PM EDT Impression: Congestive heart failure. Telerad WILLIAN ([id number]) -------- FINAL REPORT -------- Dictated By: Parris Gardner Dictated Date: 02/15/2025 13:57 ET Assigned Physician: Parris Gardner Reviewed and Electronically Signed By: Parris Gardner Signed Date: 02/15/2025 13:58 ET Workstation ID: [id number] Transcribed By: Self Edit Transcribed Date: 02/15/2025 [...] IMPRESSION: Impression: Congestive heart failure. Teleliz DORSEY ([id number]) -------- FINAL REPORT -------- Dictated By: Parris Gardner Dictated Date: 02/15/2025 13:57 ET Assigned Physician: Parris Gardner Reviewed and Electronically Signed By: Parris Gardner Signed Date: 02/15/2025 13:58 ET Workstation ID: [id number] Transcribed By: Self Edit Transcribed Date: 02/15/2025 13:57 ET us Zaida Saavedra DO IMG XR PROCEDURES Final R esult * Vascular US Duplex Lower Extremity Venous Right (02/15/2025 1:39 PM EDT) Anatomical Region Laterality Modality Vascular, Abdomen Ultrasound 02/15/2025 1:41 PM EDT Impressions 02/15/2025 1:42 PM EDT Impression: No evidence of deep vein thrombosis in the right femoral-popliteal venous segment. Telerad WILLIAN ([id number]) -------- FINAL REPORT -------- Dictated By: Parris Gardner Dictated Date: 02/15/2025 13:41 ET Assigned Physician: Parris Gardner Reviewed and Electronically Signed By: Parris Gardner Signed Date: 02/15/2025 13:42 ET Workstation ID: [id number] Transcribed By: Self Edit Transcribed Date: 02/15/2025 [...] in the right femoral-popliteal venoussegment. Telerad WILLIAN ([id number]) -------- FINAL REPORT -------- Dictated By: Parris Gardner Dictated Date: 02/15/2025 13:41 ET Assigned Physician: Parris Gardner Reviewed and Electronically Signed By: Parris Gardner Signed Date: 02/15/2025 13:42 ET Workstation ID: [id number] Transcribed By: Self Edit Transcribed Date: 02/15/2025 13:41 ET Zaida Saavedra DO CV VASCULAR PROCEDURES Fi nal Result * Lactate (02/15/2025 1:00 PM EDT) [facility] Lactate 1.6 0.4 - 2.0 mmol/L LAB CHEMISTRY METHOD 02/15/2025 2:05 PM EDT [facility] Blood Venous blood specimen / Unknown Venipuncture / Unknown 02/15/2025 1:00 PM EDT 02/15/2025 1:24 PM EDT [facility] [employer] Leonard Saavedra LAB BLOOD ORDERABLES Hillary l Result Performing Organization Address [facility]/ZIP Co de Phone Number [facility] [address] [place] [address], [place] [phone] * Blood culture (02/15/2025 12:59 PM EDT) Only the most recent of2 resultswithin the time period is included. [facility] Culture, Blood No growth at 5 days 02/20/2025 2:01 PM EDT [facility] Blood Venous blood specimen / Unknown Venipuncture / Unknown 02/15/2025 12:59 PM EDT 02/15/2025 1:24 PM EDT [facility] [employer] Leonard Saavedra LAB MICROBIOLOGY - GENERA L ORDERABLES Final Result Performing Organization Address City/[facility]/ZIP Co de Phone Number [facility] [address] [place] [address], [place] [phone] * Troponin I high sensitivity (02/15/2025 12:51 PM EDT) Only the most recent of2 resultswithin the time period is included. [facility] High Sensitivity Troponin I 48 <=79 ng/L LAB CHEMISTRY METHOD 02/15/2025 2:59 PM EDT [facility] Blood Venous blood specimen / Unknown 02/15/2025 12:51 PM EDT 02/15/2025 2:45 PM EDT Narrative [facility] - 02/15/2025 2:59 PM EDT High levels of biotin in samples may falsely decrease hsTroponin values. ??Use caution when interpreting hsTroponin results in patients taking biotin who exhibit renal impairment (eGFR <60) or in patients taking more than 20 mg/day of biotin. Zaida Saavedra DO LAB BLOOD ORDERABLES Hillary l Result [facility] [address] [place] [address], [place] [phone] * ECG 12 lead (02/15/2025 12:38 PM EDT) [facility] Ventricular Rate ECG 87 BPM GEMUSE Atrial Rate 87 BPM GEMUSE P-R Interval 144 ms GEMUSE QRS Duration 86 ms GEMUSE Q-T Interval 382 ms GEMUSE QTc 459 ms GEMUSE P Wave [place] 48 degrees GEMUSE R [place] 24 degrees GEMUSE T [place] 66 degrees GEMUSE ECG Interpretation Normal sinus [...] and culture (02/15/2025 12:35 PM EDT) Specific [place] Urine 1.032(H) 1.003 - 1.030 LAB URINALYSIS - AUTOMATED METHOD 02/15/2025 1:10 PM [facility] pH, Urine 5.5 5.0 - 8.0 pH LAB URINALYSIS - AUTOMATED METHOD 02/15/2025 1:10 PM [facility] Leukocytes, Urine Negative Negative LAB URINALYSIS - AUTOMATED METHOD 02/15/2025 1:10 PM [facility] Nitrite, Urine Negative Negative LAB URINALYSIS - AUTOMATED METHOD 02/15/2025 1:10 PM [facility] Protein, Urine >=1000(A) <=Trace mg/dL LAB URINALYSIS - AUTOMATED METHOD 02/15/2025 1:10 PM [facility] Glucose, Urine >=1000(A) Negative mg/dL LAB URINALYSIS - AUTOMATED METHOD 02/15/2025 1:10 PM [facility] Ketones, Urine Trace(A) Negative mg/dL LAB URINALYSIS - AUTOMATED METHOD 02/15/2025 1:10 PM [facility] Urobilinogen , Urine 1.0 0.2 - 1.0 mg/dL LAB URINALYSIS - AUTOMATED METHOD 02/15/2025 1:10 PM [facility] Bilirubin, Urine Small(A) Negative LAB URINALYSIS - AUTOMATED METHOD 02/15/2025 1:10 PM [facility] Blood, Urine Moderate(A) Negative LAB URINALYSIS - AUTOMATED METHOD 02/15/2025 1:10 PM [facility] RBC, Urine 13.2(H) 0 - 4 /HPF LAB URINALYSIS - AUTOMATED METHOD 02/15/2025 1:10 PM EDT [facility] WBC, Urine 3.2 0 - 4 /HPF LAB URINALYSIS - AUTOMATED METHOD 02/15/2025 1:10 PM EDT [facility] Squamous Epithelial, Urine 30 0 - 60 /LPF LAB URINALYSIS - AUTOMATED METHOD 02/15/2025 1:10 PM EDT [facility] Bacteria, Urine Negative Negative /HPF LAB URINALYSIS - AUTOMATED METHOD 02/15/2025 1:10 PM EDT [facility] Hyaline Casts, Urine 26.5(H) 0 - 3 /LPF LAB URINALYSIS - AUTOMATED METHOD 02/15/2025 1:10 PM EDT [facility] Urine Urine specimen obtained by clean catch procedure / Unknown Non-blood Collection / Unknown 02/15/2025 12:35 PM EDT 02/15/2025 12:53 PM EDT us [facility] Maxime Saavedra DO LAB URINE ORDERABLES Hillary l Result [facility] [address] [place] [address], * Respiratory virus panel molecular study (02/15/2025 12:35 PM EDT) Pathologist [facility] Adenovirus Detection by PCR Not Detected Not Detected LAB MICROBIOLOGY METHOD 02/15/2025 1:44 PM EDT [facility] Influenza A PCR Not Detected Not Detected LAB MICROBIOLOGY METHOD 02/15/2025 1:44 PM EDT [facility] Influenza B PCR Not Detected Not Detected LAB MICROBIOLOGY METHOD 02/15/2025 1:44 PM EDT [facility] Coronavirus 229E Not Detected Not Detected LAB MICROBIOLOGY METHOD 02/15/2025 1:44 PM EDT [facility] Coronavirus HKU1 Not Detected Not Detected LAB MICROBIOLOGY METHOD 02/15/2025 1:44 PM EDT [facility] Coronavirus OC43 Not Detected Not Detected LAB MICROBIOLOGY METHOD 02/15/2025 1:44 PM EDT [facility] Coronavirus NL63 Not Detected Not Detected LAB MICROBIOLOGY METHOD 02/15/2025 1:44 PM EDT [facility] Parainfluenza Virus 1 Not Detected Not Detected LAB MICROBIOLOGY METHOD 02/15/2025 1:44 PM EDT [facility] Parainfluenza Virus 2 Not Detected Not Detected LAB MICROBIOLOGY METHOD 02/15/2025 1:44 PM EDT [facility] Parainfluenza Virus 3 Not Detected Not Detected LAB MICROBIOLOGY METHOD 02/15/2025 1:44 PM EDT [facility] Parainfluenza Virus 4 Not Detected Not Detected LAB MICROBIOLOGY METHOD 02/15/2025 1:44 PM EDT [facility] RSV PCR Not Detected Not Detected LAB MICROBIOLOGY METHOD 02/15/2025 1:44 PM EDT [facility] Human Metapneumovirus A and B Not Detected Not Detected LAB MICROBIOLOGY METHOD 02/15/2025 1:44 PM EDT [facility] Rhinovirus/Entero virus Not Detected Not Detected LAB MICROBIOLOGY METHOD 02/15/2025 1:44 PM EDT [facility] Bordetella pertussis Not Detected Not Detected LAB MICROBIOLOGY METHOD 02/15/2025 1:44 PM EDT [facility] Bordetella parapertussis Not Detected Not Detected LAB MICROBIOLOGY METHOD 02/15/2025 1:44 PM EDT [facility] Mycoplasma pneumo by PCR Not Detected Not Detected LAB MICROBIOLOGY METHOD 02/15/2025 1:44 PM EDT [facility] Chlamydia pneumoniae Not Detected Not Detected LAB MICROBIOLOGY METHOD 02/15/2025 1:44 PM EDT [facility] SARS COV-2 Not Detected Not Detected LAB MICROBIOLOGY METHOD 02/15/2025 1:44 PM EDT [facility] Swab Nasopharyngeal structure / Unknown Non-blood Collection / Unknown 02/15/2025 12:35 PM EDT 02/15/2025 12:53 PM EDT Narrative [facility] - 02/15/2025 1:44 PM EDT Testing was performed using the [employer] Respiratory Pathogen PCR Assay. All results must [...] that are below the limit of detection. [facility] MICROBIOLOGY - GENERA L ORDERABLES Final Result Performing Organization Address [facility]/ZIP Co de Phone Number [facility] [address] [place] [address], [place] [phone] * [place] urine culture tube (02/15/2025 12:35 PM EDT) Pathologist [facility] Extra Tube Hold for add-ons. 02/15/2025 2:01 PM EDT [facility] Comment:Auto resulted. Urine Urine specimen obtained by clean catch procedure / Unknown Non-blood Collection / Unknown 02/15/2025 12:35 PM EDT 02/15/2025 12:53 PM EDT [facility] Leonard Saavedra LAB URINE ORDERABLES Hillary l Result [facility] [address] [place] [address], [place] [phone] * Creatine kinase (02/15/2025 12:23 PM EDT) Total CK 169 22 - 269 unit/L LAB CHEMISTRY METHOD 02/15/2025 2:28 PM EDT [facility] Blood Venous blood specimen / Unknown Venipuncture / Unknown 02/15/2025 12:23 PM EDT 02/15/2025 12:54 PM EDT Zaida Saavedra DO LAB BLOOD ORDERABLES Hillary l Result [facility] [address] [place] [address], [place] [phone] * (ABNORMAL) Hepatic function panel (02/15/2025 12:23 PM EDT) Total Protein 5.7(L) 6.0 - 8.0 g/dL LAB CHEMISTRY METHOD 02/15/2025 1:50 PM EDT [facility] Albumin 1.9(L) 3.2 - 5.0 g/dL LAB CHEMISTRY METHOD 02/15/2025 1:50 PM EDT [facility] Total Bilirubin 1.3 0.0 - 1.4 mg/dL LAB CHEMISTRY METHOD 02/15/2025 1:50 PM EDT [facility] Bilirubin, Direct 0.2 0.0 - 0.3 mg/dL LAB CHEMISTRY METHOD 02/15/2025 1:50 PM EDT [facility] Comment:Hemolysis present Bilirubin, Indirect 1.1 0.0 - 1.1 mg/dL LAB CHEMISTRY METHOD 02/15/2025 1:50 PM EDT [facility] ALT (SGPT) 18 10 - 60 unit/L LAB CHEMISTRY METHOD 02/15/2025 1:50 PM T [facility] AST (SGOT) 33 10 - 42 unit/L LAB CHEMISTRY METHOD 02/15/2025 1:50 PM EDT [facility] Comment:Hemolysis present Alkaline Phosphatase 130(H) 42 - 121 unit/L LAB CHEMISTRY METHOD 02/15/2025 1:50 PM EDT [facility] Blood Venous blood specimen / Unknown Venipuncture / Unknown 02/15/2025 12:23 PM EDT 02/15/2025 12:54 PM EDT Zaida Saavedra DO LAB BLOOD ORDERABLES Hillary thomas Result [facility] [address] [place] [address], [place] [phone] from Last 3 Months Additional Health Concerns Infection Onset Date Last Indicated MRSA 02/18/2025 02/18/2025 Insurance [facility] [employer] Advance Directives * Full Code - [...]
[2025-03-11 18:48] LABS: Troponin-I High Sensitivity 39.6 ng/L (<3.5-35.0)
--- NOTE | 2025-03-11 19:11 | PC.NURSE ---
PA at bedside for U/S IV, 18g L upper arm
--- NOTE | 2025-03-11 19:18 | PC.NURSE ---
85 on RA, provider placed on 2L NC
[2025-03-11] MEDS: Furosemide 100 MG/10 ML VIAL 80 MG IVPUSH (19:35)
[2025-03-11] MEDS: 0.9 % Sodium Chloride 500 ML IV (19:44)
[2025-03-11] MEDS: Piperacillin Sodium/Tazobactam 3.375 GM in 0.9 % Sodium Chloride 50 ML IV (19:44)
[2025-03-11 19:50] LABS: Lactic Acid 0.9 mmol/L (0.5-2.0)
--- NOTE | 2025-03-11 19:57 | PC.NURSE ---
informed PA of pt's rectal temp. sepsis alert called at this time
[2025-03-11] MEDS: Acetaminophen 325 MG TABLET 975 MG PO (20:07)
[2025-03-11 20:36] LABS: Appearance Urine Clear; Color Urine Yellow; Glucose Urine UA >=1000 mg/dL (Negative); Leukocyte Esterase Urine Negative (Negative); Nitrite Urine Negative (Negative); UMIC TRIGGER UACC YES; Urine Blood Moderate (2+) (Negative); Urine Ketones Negative (Negative); Urine Protein >=1000 (4+) mg/dL (Neg-Trace)
[2025-03-11] MEDS: vancomycin/NS 2,000 MG/500 ML PLAST..BAG 250 MG IV (20:46)
[2025-03-11 21:04] LABS: Bacteria Urine None Seen (None Seen); Squamous Epithelial Cell Urine 0-2 /HPF (0-2); WBC Urine 0-5 /HPF (0-5)
--- NOTE | 2025-03-11 23:24 | PM.IMHP ---
History of Present Illness Date of Service: 03/11/25 <[facility] - Last Filed: 03/11/25 23:52> Attending physician on admission: Armando Jamison <[facility] - Last Filed: 03/11/25 23:52> Chief Complaint: Dyspnea <[facility] - Last Filed: 03/11/25 23:52> Patient is a 54-year-old Citizen Of The [place]-speaking male (preanalytics team lead was used) with past medical history hypertension, hyperlipidemia, insulin-dependent diabetes mellitus type 2, RAKAN not on CPAP, obesity, psoriasis, psoriatic arthritis, CHF, neuropathy, retinopathy with significant loss of vision but patient is not legally blind, BPH presents to the emergency department with complaints of dyspnea and increased fatigue over the last 12 hours. Patient states he was recently at [facility] with the same symptoms but in addition patient is now reporting some oozing and drainage from the right ankle area. ESR 94, CRP 3.4. Patient has chronic psoriatic plaques on both legs and on both elbows. Patient has been doing dressing care with his spouse as prescribed at [facility] and is not currently following with the Wound Care Clinic for these chronic psoriatic areas. Patient is reporting increasing pain in the right leg only. Patient currently does have full range of motion and denies any recent falls or injury involving the right lower extremity. 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 Patient does follow with a asphalt heater tender for his psoriasis but does not follow with the wound care clinic at this time. Patient follows with a civil drafter but there is no documentation that is through [facility]. Patient has no record of echocardiogram in the past here at [facility].. BNP 714. Patient initially hypoxic and now on 2 L and after 80 mg of IV Lasix, patient has stabilized. Patient does not use oxygen at home. Patient was also febrile and blood cultures are pending. Patient was started on vanco and Zosyn in the emergency department. UA negative for UTI. Chest x-ray noted for increased pulmonary congestion with borderline cardiomegaly. No evidence of pneumonia. Patient being admitted for acute hypoxic respiratory failure, CHF exacerbation and wound care issues with possible skin infection. <[facility] - Last Filed: 03/11/25 23:52> Review of Systems Review of Systems: Patient reports right lower extremity pain nonspecific, 3/10 with burning sensation. Patient denies any current chest pain, shortness of breath at rest or with exertion, abdominal pain, nausea or vomiting. Patient states appetite has been healthy. Patient denies any recent fever, chills or night sweats at home. Patient does follow with a asphalt heater tender for his psoriasis <JESSICA Serrano - Last Filed: 03/11/25 23:52> Yes all other systems are reviewed and are negative <[facility] Last Filed: 03/11/25 23:52> [facility] Medical History: Medical History CHF (congestive heart failure) Psoriasis Psoriatic arthritis Hypercholesteremia Lumbago with sciatica, right side Elev transaminase/LDH Neuropathy Diabetes Psoriasis <[place] JESSICA Uriarte - Last Filed: 03/11/25 23:52> Cognitive capacity: Alert and orientated x3 <[place] JESSICA Uriarte - Last Filed: 03/11/25 23:52> Functional capacity: uses cane/walker <[place] [facility] - Last Filed: 03/11/25 23:52> Family History: Family History Father Diabetes HTN (hypertension) Mother Diabetes <[facility] JESSICA Uriarte - Last Filed: 03/11/25 23:52> Social History: Social History Alcohol intake: never Patient Tobacco Use Status: Never used Tobacco Smoked in Last 30 Days: No e-Cigarette/Vaping Use: Never Used Use of substances other than those prescribed or required for medical reasons: No Advance Directives: No Advance Directives Information Provided: No service: No Current occupational status: employed 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 <[place] JESSICA Uriarte - Last Filed: 03/11/25 23:52> Ebola Risk: Travel/Contact With Anyone From Affected Area/s: No <JESSICA Serrano - Last Filed: 03/11/25 23:52> Has Patient Experienced Ebola Symptoms: No <[facility] - Last Filed: 03/11/25 23:52> Meds Allergies/Adverse reactions: Allergies Allergy/AdvReac Type Severity Reaction Status Date / Time No Known Allergies Allergy Verified 03/11/25 16:10 <[facility] - Last Filed: 03/11/25 23:52> Active Medications: Current Medications Acetaminophen (Acetaminophen 325 Mg Tablet) 650 mg PO Q6H PRN PRN Reason: Pain, Mild 1-3,fever,headache Albuterol/Ipratropium (Albuterol/Iprat 2.5/0.5mg 3 Ml Ampul.Neb) 3 ml INHALE Q4H PRN PRN Reason: Shortness of Breath/Wheezing Calcium Carbonate (Calcium Carbonate 750 Mg Tab.Chew) 750 mg PO Q4H PRN PRN Reason: Heartburn Dextrose (Dextrose 50 % 25 Gm/50 Ml Syringe) 25 gm IVPUSH Q15M PRN; Protocol PRN Reason: per Hypoglycemia Standing Ord. Enoxaparin Sodium (Enoxaparin Sodium 40 Mg/0.4 Ml Syringe) 40 mg SUBCUT Q24H DARIO Glucose (Glucose Gel 15 Gm Gel..Gram.) 15 gm PO Q15M PRN; Protocol PRN Reason: per Hypoglycemia Standing Ord. Piperacillin Sod/Tazobactam (Sod 4.5 gm/ Sodium Chloride) 100 mls @ 200 mls/hr IV Q6H DARIO Vancomycin HCl 1,250 mg/ (Sodium Chloride) 250 mls @ 166.667 mls/hr IV Q12H [facility] Insulin Human Lispro (Insulin Lispro 100 Unit/Ml 3 Ml Vial) 0 unit SUBCUT QIDACHS [facility]; Protocol Magnesium Hydroxide (Milk Of Magnesia 30 Ml Oral.Susp) 30 ml PO DAILY PRN PRN Reason: Constipation Melatonin (Melatonin 3 Mg Tablet) 6 mg PO BEDTIME PRN PRN Reason: Insomnia Pharmacy Consult (Consult Rx Vancomycin Dosing) 1 each MISCELLANE DAILY PRN PRN Reason: Consult order Senna (Sennosides 8.6 Mg Tablet) 17.2 mg PO BEDTIME DARIO Sodium Chloride (0.9 % Sodium Chloride Flush 3 Ml Syringe) 3 ml IVFLUSH QSHIFT DARIO <[facility] - Last Filed: 03/11/25 23:52> Home medications: Home Medications ?Medication ?Instructions ?Recorded ?Confirmed ?Last Taken ?Type aspirin 81 mg tablet,delayed 81 mg PO DAILY 02/04/21 03/04/25 Unknown History release lisinopril 20 1 tab PO DAILY 02/04/21 03/04/25 Unknown History mg-hydrochlorothiazide 25 mg tablet acetaminophen 325 mg tablet 650 mg PO TID PRN fever 03/17/23 03/04/25 Unknown History atorvastatin 40 mg tablet 40 mg PO QPM 03/17/23 03/04/25 Unknown History benzonatate 100 mg capsule 100 mg PO TID PRN cough 03/17/23 03/04/25 Unknown History gabapentin 100 mg capsule 100 mg PO QPM neuropathic pain 03/17/23 03/04/25 Unknown History metformin 500 mg tablet,extended 500 mg PO 03/17/23 03/04/25 Unknown History release 24 hr tamsulosin 0.4 mg capsule mg PO QPM 03/17/23 03/04/25 Unknown History dulaglutide 4.5 mg/0.5 mL mg subcut 01/16/24 03/04/25 Unknown History subcutaneous pen injector (Trulicity) insulin glargine 100 unit/mL (3 10 unit subcut BEDTIME 01/16/24 03/04/25 Unknown History mL) subcutaneous pen (Lantus Solostar U-100 Insulin) furosemide 40 mg tablet (Lasix) 80 mg PO BID 04/16/24 03/04/25 Unknown History <[facility] - Last Filed: 03/11/25 23:52> Physical Exam Vital Signs and Narrative: Vital Signs: Last Vital Signs Temp 98.7 F 03/11/25 21:54 Pulse 71 03/11/25 21:54 Resp 22 H 03/11/25 21:54 BP 154/73 H 03/11/25 21:54 Pulse Ox 97 03/11/25 21:54 O2 Del Method Nasal Cannula 03/11/25 21:54 O2 Flow Rate 2 03/11/25 21:54 BMI result Body Mass Index 32.5 <[facility] - Last Filed: 03/11/25 23:52> Alert and orientated X3, able to give good history. [employer] Supervisor used Neuro: CN II-X11 intact, no deficits, visual acuity intact EYES: PERRLA, EOM intact ENT: hearing intact, no issues with swallowing, uvula midline, lips moist, nares patent no epistaxis Cardiac: S1 S2 RRR, no murmur, no JVD, bilateral lower extremity edema moderate Pulmonary: lungs diminished bilaterally, no wheeze or rhonchi heard Abdominal: BS active in all 4 quadrants, no guarding, tenderness, rebounding, obese MSK: strength 4/5 upper and lower extremities : no CVA tenderness no bladder distension Extremities: Moderate edema in lower extremities, PT and DP pulses palpable +2 Psych: mood stable, judgement and insight good Skin: Multiple psoriatic silvery patches on both lower extremities and elbows. Right lower extremity with evidence of crusting and mild bloody drainage. No blisters, eschar or necrosis seen. Sensation intact. <[facility] - Last Filed: 03/11/25 23:52> Results Labs CBC and Chem 7: 03/11/25 16:31 03/11/25 16:31 <[facility] - Last Filed: 03/11/25 23:52> Labs: Laboratory Results - last 24 hr 03/11/25 03/11/25 03/11/25 16:31 19:31 20:12 MCV 81.9 MCH 28.5 MCHC 34.8 RDW 13.8 Plt Count 173 D MPV 9.0 L Immature Gran % (Auto) 0.3 Neut % (Auto) 83.9 H Lymph % (Auto) 6.5 L Coos % (Auto) 7.9 Eos % (Auto) 1.1 Baso % (Auto) 0.3 Lymph # (Auto) 0.5 L Coos # (Auto) 0.6 Eos # (Auto) 0.1 Baso # (Auto) 0.0 Abs Immat Gran (auto) 0.02 Absolute Neuts (auto) 5.9 Absolute Nucleated RBC 0.000 Nucleated RBC % (auto) 0.0 ESR 94 H Anion Gap 12 Estim Creat Clear Calc 115.7 Estimated GFR > 60 Random Glucose 389 H* Lactic Acid 0.9 Calcium 9.0 Magnesium 1.9 Total Bilirubin 0.8 AST 13 ALT 8 Alkaline Phosphatase 106 C-Reactive Protein 3.41 H B-Natriuretic Peptide 714 H Total Protein 6.5 Albumin 3.1 L Urine Color Yellow Urine Appearance Clear Urine pH 6.0 Ur Specific Walton 1.020 Urine Protein >=1000 (4+) H Urine Glucose (UA) >=1000 H Urine Ketones Negative Urine Blood Moderate (2+) H Urine Nitrite Negative Ur Leukocyte Esterase Negative Urine RBC 6-10 H Urine WBC 0-5 Ur Squamous Epith Cells 0-2 Urine Bacteria None Seen Hyaline Casts 3-5 Influenza Type A (PCR) NEGATIVE Influenza Type B (PCR) NEGATIVE RSV RNA Qual (PCR) NEGATIVE SARS-CoV-2 RNA (RT-PCR) NEGATIVE <[facility] Last Filed: 03/11/25 23:52> ECG Attestation: I personally reviewed and interpreted this ECG as follows: (Normal sinus rhythm, QTC 450) <[facility] Last Filed: 03/11/25 23:52> Prior ECG tracings: available for review <[facility] - Last Filed: 03/11/25 23:52> Imaging Radiologist's Impressions: Impressions Chest X-Ray 03/11/25 16:34 IMPRESSION: Mild increased pulmonary vascularity question congestion. Heart size is borderline enlarged. No acute pneumonic process or pleural effusion. Electronically signed by: Lorne Palm MD 03/11/2025 04:54 PM EDT RP <[facility] Last Filed: 03/11/25 23:52> Assessment and Plan (1) Acute hypoxic respiratory failure: Status: Acute <[facility] - Last Filed: 03/11/25 23:52> Patient is a 54-year-old Citizen [place]-speaking male (preanalytics team lead was used) with past medical history hypertension, hyperlipidemia, insulin-dependent diabetes mellitus type 2, RAKAN not on CPAP, obesity, psoriasis, psoriatic arthritis, CHF, neuropathy, retinopathy with significant loss of vision but patient is not legally blind, BPH is being admitted for the following: Acute hypoxic respiratory failure -after 80 mg of Lasix IV and 2 L nasal cannula, hypoxia is resolved -patient did not meet the criteria for sepsis at this time -duo nebs p.r.n. -steroids not indicated at this time -telemetry and continuous pulse ox -diurese Acute CHF exacerbation -patient received 80 mg of Lasix IV, we will continue 40 IV b.i.d., K stable -echo pending -Cardiology consult if indicated -BNP was 714, troponin flat -EKG without ischemic changes -daily weights -low-sodium diet, fluid allowance 1500 -oxygen via nasal cannula, supportive care Bilateral lower extremity cellulitis/ psoriatic plaques present -patient currently on vanco and Zosyn noting low-grade temp that is now resolved -wound cultures were not collected prior to antibiotics starting in the emergency department -wound care consult ordered -ID consult if indicated -blood cultures pending, fever has resolved -likely source are the psoriatic plaques along with increased edema from CHF exacerbation -patient recently at [facility] and was prescribed specific wound care but is not following with the Wound Care Clinic -patient does follow with Dermatology as an outpatient -Venous dopplers pending, noted pain RLE, edema -pain mgmt tylenol, one dose of toradol Hyperglycemia/ IDDM II -sliding scale insulin -diabetic diet -Lantus ordered Hypertension -blood pressure stable -await med rec completion and initiate patient's lisinopril/hydrochlorothiazide -low-sodium diet RAKAN -patient does not currently use CPAP, is scheduled for a repeat sleep study in the next month -patient deferred use of in-house CPAP for this admission Hyperlipidemia -continue statin BPH -continue tamsulosin -UA negative for UTI DVT prophylaxis: Lovenox PPI prophylaxis: Omeprazole Med rec pending Full code status <Shelli Uriarte [facility]- - Last Filed: 03/11/25 23:52> Patient is a 54-year-old Citizen [place]-speaking male (preanalytics team lead was used) with past medical history hypertension, hyperlipidemia, insulin-dependent diabetes mellitus type 2, RAKAN not on CPAP, obesity, psoriasis, psoriatic arthritis, CHF, neuropathy, retinopathy with significant loss of vision but patient is not legally blind, BPH is being admitted for the following: Acute hypoxic respiratory failure -after 80 mg of Lasix IV and 2 L nasal cannula, hypoxia is resolved -patient did not meet the criteria for sepsis at this time -duo nebs p.r.n. -steroids not indicated at this time -telemetry and continuous pulse ox -diurese Acute CHF exacerbation -patient received 80 mg of Lasix IV, we will continue 80 IV b.i.d., K stable -echo pending -Cardiology consult if indicated -BNP was 714, troponin flat -EKG without ischemic changes -daily weights -low-sodium diet, fluid allowance 1500 -oxygen via nasal cannula, supportive care Bilateral lower extremity cellulitis/ psoriatic plaques present -patient currently on vanco and Zosyn noting low-grade temp that is now resolved -wound cultures were not collected prior to antibiotics starting in the emergency department -wound care consult ordered -ID consult if indicated -blood cultures pending, fever has resolved -likely source are the psoriatic plaques along with increased edema from CHF exacerbation -patient recently at [facility] and was prescribed specific wound care but is not following with the Wound Care Clinic -patient does follow with Dermatology as an outpatient -Venous dopplers pending, noted pain RLE, edema -pain mgmt tylenol, one dose of toradol Hyperglycemia/ IDDM II -sliding scale insulin -diabetic diet -Lantus ordered Hypertension -blood pressure stable -await med rec completion and initiate patient's lisinopril/hydrochlorothiazide -low-sodium diet RAKAN -patient does not currently use CPAP, is scheduled for a repeat sleep study in the next month -patient deferred use of in-house CPAP for this admission Hyperlipidemia -continue statin BPH -continue tamsulosin -UA negative for UTI DVT prophylaxis: Lovenox PPI prophylaxis: Omeprazole Med rec pending Full code status <Armando Jamison MD - Last Filed: 03/12/25 00:43> Quality Stroke Does the patient have a stroke diagnosis?: No <JESSICA Serrano - Last Filed: 03/11/25 23:52> Reason for No Anti-thrombotic by Day Two: N/A - Med Ordered <JESSICA Serrano - Last Filed: 03/11/25 23:52> VTE Prior VTE?: No <JESSICA Serrano - Last Filed: 03/11/25 23:52> VTE Risk Level:: Medical - moderate - high <JESSICA Serrano - Last Filed: 03/11/25 23:52> VTE Device Contraindication: Treatment Not Tolerated <JESSICA Serrano - Last Filed: 03/11/25 23:52> VTE Drug Contraindication: N/A - Med Ordered <JESSICA Serrano - Last Filed: 03/11/25 23:52>
[2025-03-11] MEDS: Enoxaparin Sodium 40 MG/0.4 ML SYRINGE SUBCUT (23:38)
[2025-03-12] VITALS (8 sets, daily range): BP systolic 145–176; BP diastolic 69–85; PULSE 69–92; RESP 16–22; TEMP 36.2–37.4; O2SAT 94–99; BMI 33.3
--- NOTE | 2025-03-12 00:24 | MHC.EDTECH ---
This pct assumed care of Patient at 2300 ,vitals taken ,Patient awake ,Alert and Oriented ,no apparent distress noted ,Patient has a bed assignment on med surge ,waiting for report to be given ,Call hammonds within Pt reach .
[2025-03-12] MEDS: Insulin Glargine,Hum.rec.anlog 100 UNIT/ML 10 ML VIAL 10 UNIT SUBCUT (01:01)
[2025-03-12] MEDS: 0.9 % Sodium Chloride Flush 3 ML SYRINGE IVFLUSH ×4 (01:01→21:41)
[2025-03-12 01:06] LABS: Glucose, Whole Blood 303 mg/dL (60-115)
[2025-03-12] MEDS: Piperacillin Sodium/Tazobactam 4.5 GM in 0.9 % Sodium Chloride 100 ML IV ×4 (01:56→18:20)
[2025-03-12 05:26] LABS: MANUAL DIFF FLAG NO
[2025-03-12 05:28] LABS: Basophils Percent Auto 0.3 % (0-2); Eosinophils Absolute Auto 0.1 X10*3/uL (0.0-0.4); Eosinophils Percent Auto 1.9 % (0-4); Hematocrit 30.4 % (42.0-52.0); Hemoglobin 10.3 g/dl (14.0-18.0); Imm Gran Abs Auto 0.02 X10*3/uL (0.00-0.03); Imm Gran Pct Auto 0.3 % (0.0-0.4); Lymphocytes Absolute Auto 0.6 X10*3/uL (1.2-4.9); Lymphocytes Percent Auto 8.9 % (20-40); Mean Corpuscular HGB Conc 33.9 g/dl (31.0-36.0); Mean Corpuscular Hemoglobin 27.8 pg (27.0-33.0); Mean Corpuscular Volume 81.9 fL (80.0-98.0); Mean Platelet Volume 9.7 fL (9.4-12.4); Monocytes Absolute Auto 0.6 X10*3/uL (0.1-1.2); Monocytes Percent Auto 9.9 % (2-11); Neutrophils Percent Auto 78.7 % (45-73); Platelet Count 160 X10*3/uL (160-400); Red Blood Count 3.71 X10*6/uL (4.60-5.80); Red Cell Distribution Width 13.9 % (11.0-16.0); White Blood Count 6.4 X10*3/uL (4.8-10.8)
[2025-03-12 05:58] LABS: Calcium 8.5 mg/dL (8.4-10.2)
[2025-03-12 05:59] LABS: Alanine Aminotransferase < 6 U/L (0-40); Albumin Level 2.7 g/dL (3.5-5.0); Alkaline Phosphatase 92 U/L (39-117); Anion Gap 11 (12-20); Aspartate Amino Transferase 13 U/L (5-37); Blood Urea Nitrogen 14 mg/dL (9-16); Carbon Dioxide 27 mmol/L (22-29); Chloride 102 mmol/L (96-108); Estimated Glomerular Filt Rate > 60; Glucose Random 386 mg/dL (60-115); Potassium 3.7 mmol/L (3.3-5.1); Sodium 136 mmol/L (135-145); Total Protein 5.8 g/dL (6.5-8.0)
[2025-03-12] MEDS: Omeprazole 20 MG CAPSULE.DR PO (06:05)
--- NOTE | 2025-03-12 07:00 | CA_ITS ---
Transthoracic Echocardiogram Patient (Last, First, Middle): Joesph Saldana L Gender: Male Date of : 1970 Age: 54 Procedure Date: 03/12/2025 Procedure Type: Transthoracic Echocardiogram Location: S3E Height: 182.88 cm Weight: 111.13 kg BSA: 2.32 m2 Heart Rate: 83 bpm BP: 176 / 84 mmHg World Language Teacher: ABRIL Referring MD: Shelli Uriarte [facility] Senior Ui Ux Designer: Manan Wilkerson MD Symptoms: CHF exacerbation Study Quality: Adequate w contrast ECG Rhythm: Sinus Conclusions: - 1. Mildly reduced LV ejection fraction 45-50% with moderate LVH with pseudonormal filling pattern 2. Mildly dilated left atrium 3. Cardiac valvular Dopplers within normal limits 4. Mildly to moderately elevated right ventricular systolic pressure with mildly elevated right atrial pressures 5. No gross pericardial effusion Findings Procedure Information Contrast agent, definity, is being given per protocol without apparent complications. Left Ventricle Normal left ventricular cavity size. There is moderately increased left ventricular wall thickness. The left ventricular systolic function is mildly decreased. The visually estimated ejection fraction is between 45-50%. There is mild global hypokinesis. Spectral Doppler is indicative of a pseudonormal filling pattern. Right Ventricle The right ventricle was not well visualized. Atria The left atrium is mildly dilated. Interatrial shunt cannot be excluded. The right atrium is normal in size. Aortic Valve Normal aortic valve structure and function. There is no aortic valve stenosis. There is no aortic valve regurgitation. Mitral Valve Normal mitral valve structure and function. There is trace mitral valve regurgitation. There is no mitral valve stenosis. Pulmonic Valve The pulmonic valve was not well visualized. Tricuspid Valve Likely normal tricuspid valve structure and function. There is mild tricuspid valve regurgitation. Mildly elevated right atrial pressure. Mild to moderate pulmonary hypertension is present. Great Vessels All visible segments of the aorta are normal in size. The pulmonary artery was not well visualized. Venous The inferior vena cava is normal in size and collapses less than 50% with inspiration. Pericardium/Pleural There is no evidence of pericardial effusion. Prior Study Comparison no previous study in the last 5 years for comparison Measurements 2D Linear Measurements IVSd: 1.58 0.6-0.9/0.6-1.0 cm LVIDd: 5.60 3.9-5.3/4.2-5.9 cm LVIDd Index: 2.41 2.4-3.2/2.2-3.1 cm/m2 LVIDs: 4.11 2.0-3.6 cm LVPWd: 1.42 0.7-1.1 cm LA Diam: 4.30 2.7-3.8/3.0-4.0 cm LAIDs Index: 1.85 1.5-2.3 cm/m2 LV Mass: 478.86 67-162/88-224 g LV Mass Index: 206.40 43-95/49-115 g/m2 LVOT Diam: 2.50 3.0+(-)1.3 cm 2D Systolic Function EF 4C: 50.60 >55% EF 2C: 50.40 >55% EF BiP: 48.70 >55% Mitral Valve MV Pk E: 0.64 MV PK A: 0.50 MV Decel Time: 180.00 E/A: 1.30 E'Lateral: 6.20 E'Medial: 3.59 E/E' Med: 17.80 E/E' Lat: 10.30 PHT: 53.00 MVA PHT: 4.15 Decel [place]: 3.56 Aortic Valve AoV Pk Charles: 0.98 AoV Pk Grad: 4.00 SCARLETT: 3.50 LVOT LVOT Pk Charles: 0.70 LVOT Mn Charles: 0.49 LVOT VTI: 0.13 LVOT Pk Grad: 2.00 LVOT Mn Grad: 1.00 LVOT Diam: 2.50 LVOT Area: 4.91 Diastolic Function MV Pk E: 0.64 MV Pk A: 0.50 E/A: 1.30 E'Medial: 3.59 E/E' Med: 17.80 E' Laterial: 6.20 E/E' Lat: 10.30 Right Ventricle TAPSE (mm): 18.60 TVS' Charles: 9.36 Tricuspid Valve TR Pk Charles: 3.22 TR Pk Grad: 41.00 RA Press: 8.00 RVSP: 49.00 Great Vessels Aorta Sinus of Valsalva: 3.40 2.0-3.5 cm Ao Asc: 3.30 2.1-3.4 cm Pulmonary Veins Pulm Vein S/D 1.20 Pulmonary Valve PV Pk Charles: 0.79 Peak PV Grad: 3.00 Updated in Other Vendor System with Status of Final Manan Wilkerson MD electronically signed on 03/12/2025 1:37:50 PM with status of Final
[2025-03-12 07:25] LABS: Glucose, Whole Blood 358 mg/dL (60-115)
[2025-03-12] MEDS: Furosemide 40 MG/4 ML VIAL 80 MG IVPUSH ×2 (07:32→16:42)
[2025-03-12] MEDS: Insulin Lispro 100 UNIT/ML 3 ML VIAL SUBCUT ×4 (07:32→21:32)
[2025-03-12] MEDS: vancomycin HCL 1,250 MG in 0.9 % Sodium Chloride 250 ML 166.67 MG IV ×2 (08:09→21:43)
[2025-03-12 08:31] LABS: Glucose, Whole Blood 362 mg/dL (60-115)
--- NOTE | 2025-03-12 08:54 | PHA.MEDREC ---
Addendum entered by James Lopez 03/12/25 14:18: removed lisinopril-hctz as it hadn't been filled recently and they have been filling Entresto instead. Original Note: Pharmacy Consult ? Medication Reconciliation Pharmacy has completed the medication reconciliation. Spoke to patient and spouse over the phone with help from rag cutting machine tender services. He doesn't really know his medications and his knew most of them. States that he no longer takes trulicity, folic acid, gabapentin, lidocaine patches, or the meloxicam. He hasn't been able to get the Taltz (ixekizumab) injection for ~6 months. Also they aren't sure that he is taking his lantus anymore as neither of them recognized it. They are both unsure when he last took his medications, he says ~1 week.
[2025-03-12 09:38] LABS: Glucose, Whole Blood 321 mg/dL (60-115)
[2025-03-12 11:38] LABS: Glucose, Whole Blood 318 mg/dL (60-115)
--- NOTE | 2025-03-12 12:44 | MHC.CM.PN ---
PT LIVES AT [facility] WITH HIS HE HAD NO PREVIOUS SERVICES PT HAS TRANSPORT HOME AND DC PLAN IS FOR PT TO COME TO [facility]
--- NOTE | 2025-03-12 13:35 | HO.PM.IMPN ---
Subjective Subjective Date of Service: 03/12/25 Interval History: This history was taken in [place] from the patient. Febrile to 100.5 @ 1942 overnight R leg swollen Less short of breath Review of Systems Review of Systems: Yes all other systems are reviewed and are negative Physical Exam Vital Signs: Vital Signs: Last Vital Signs Temp 97.1 F 03/12/25 11:45 Pulse 80 03/12/25 11:45 Resp 16 03/12/25 11:45 BP 172/83 H 03/12/25 11:45 Pulse Ox 97 03/12/25 11:45 O2 Del Method Nasal Cannula 03/12/25 11:45 O2 Flow Rate 2 03/12/25 11:45 BMI result Body Mass Index 33.3 Gen: in no acute distress HEENT: sclera anicteric, moist mucus membranes Neck: supple Lungs: diminished air entry Heart: regular rate and rhythm, no murmurs Abd: soft, non-tender, non-distended Ext: bilateral leg edema Skin: warm/well-perfused, extensive psoriatic plaques on legs, R leg with crust and serosanguinous drainage Neuro: alert and oriented x3, no focal findings Psych: appropriate affect Objective Data Active Medications Acetaminophen (Acetaminophen 325 Mg Tablet) 650 mg PO Q6H PRN PRN Reason: Pain, Mild 1-3,fever,headache Albuterol/Ipratropium (Albuterol/Iprat 2.5/0.5mg 3 Ml Ampul.Neb) 3 ml INHALE Q4H PRN PRN Reason: Shortness of Breath/Wheezing Calcium Carbonate (Calcium Carbonate 750 Mg Tab.Chew) 750 mg PO Q4H PRN PRN Reason: Heartburn Dextrose (Dextrose 50 % 25 Gm/50 Ml Syringe) 25 gm IVPUSH Q15M PRN; Protocol PRN Reason: per Hypoglycemia Standing Ord. Enoxaparin Sodium (Enoxaparin Sodium 40 Mg/0.4 Ml Syringe) 40 mg SUBCUT Q24H COUNTS INCLUDE 234 BEDS AT THE [facility] Last Admin: 03/11/25 23:38 Dose: 40 mg Documented By: OTILIO Furosemide (Furosemide 40 Mg/4 Ml Vial) 80 mg IVPUSH BID@0800,1700 COUNTS INCLUDE 234 BEDS AT THE [facility]; Protocol Last Admin: 03/12/25 07:32 Dose: 80 mg Documented By: DELFINO Glucose (Glucose Gel 15 Gm Gel..Gram.) 15 gm PO Q15M PRN; Protocol PRN Reason: per Hypoglycemia Standing Ord. Piperacillin Sod/Tazobactam (Sod 4.5 gm/ Sodium Chloride) 100 mls @ 200 mls/hr IV Q6H COUNTS INCLUDE 234 BEDS AT THE [facility] Last Infusion: 03/12/25 13:24 Dose: Infused Documented By: DELFINO Vancomycin HCl 1,250 mg/ (Sodium Chloride) 250 mls @ 166.667 mls/hr IV Q12H COUNTS INCLUDE 234 BEDS AT THE [facility] Last Infusion: 03/12/25 09:41 Dose: Infused Documented By: DELFINO Insulin Glargine (Insulin Glargine,Hum.Rec.Anlog 100 Unit/Ml 10 Ml Vial) 12 unit SUBCUT BEDTIME COUNTS INCLUDE 234 BEDS AT THE [facility] Insulin Human Lispro (Insulin Lispro 100 Unit/Ml 3 Ml Vial) 0 unit SUBCUT QIDACHS COUNTS INCLUDE 234 BEDS AT THE [facility]; Protocol Last Admin: 03/12/25 11:55 Dose: 10 unit Documented By: DELFINO Ketorolac Tromethamine (Ketorolac Tromethamine 15 Mg/Ml Vial) 15 mg IVPUSH Q6H PRN PRN Reason: Pain, Severe (Pain Scale 7-10) Stop: 03/12/25 23:50 Magnesium Hydroxide (Milk Of Magnesia 30 Ml Oral.Susp) 30 ml PO DAILY PRN PRN Reason: Constipation Melatonin (Melatonin 3 Mg Tablet) 6 mg PO BEDTIME PRN PRN Reason: Insomnia Omeprazole (Omeprazole 20 Mg Capsule.Dr) 20 mg PO DAILY@0630 COUNTS INCLUDE 234 BEDS AT THE [facility] Last Admin: 03/12/25 06:05 Dose: 20 mg Documented By: POLINA Pharmacy Consult (Consult Rx Vancomycin Dosing) 1 each MISCELLANE DAILY PRN PRN Reason: Consult order Senna (Sennosides 8.6 Mg Tablet) 17.2 mg PO BEDTIME COUNTS INCLUDE 234 BEDS AT THE [facility] Sodium Chloride (0.9 % Sodium Chloride Flush 3 Ml Syringe) 3 ml IVFLUSH QSHIFT COUNTS INCLUDE 234 BEDS AT THE [facility] Last Admin: 03/12/25 07:38 Dose: 3 ml Documented By: DELFINO Labs 03/12/25 05:05 03/12/25 05:05 Labs: Laboratory Results - last 24 hr 03/11/25 03/11/25 03/11/25 16:31 19:31 20:12 MCV 81.9 MCH 28.5 MCHC 34.8 RDW 13.8 Plt Count 173 D MPV 9.0 L Immature Gran % (Auto) 0.3 Neut % (Auto) 83.9 H Lymph % (Auto) 6.5 L Towner % (Auto) 7.9 Eos % (Auto) 1.1 Baso % (Auto) 0.3 Lymph # (Auto) 0.5 L Towner # (Auto) 0.6 Eos # (Auto) 0.1 Baso # (Auto) 0.0 Abs Immat Gran (auto) 0.02 Absolute Neuts (auto) 5.9 Absolute Nucleated RBC 0.000 Nucleated RBC % (auto) 0.0 ESR 94 H Anion Gap 12 Estim Creat Clear Calc 115.7 Estimated GFR > 60 POC Glucose Random Glucose 389 H* Lactic Acid 0.9 Calcium 9.0 Magnesium 1.9 Total Bilirubin 0.8 AST 13 ALT 8 Alkaline Phosphatase 106 C-Reactive Protein 3.41 H B-Natriuretic Peptide 714 H Total Protein 6.5 Albumin 3.1 L Urine Color Yellow Urine Appearance Clear Urine pH 6.0 Ur Specific [place] 1.020 Urine Protein >=1000 (4+) H Urine Glucose (UA) >=1000 H Urine Ketones Negative Urine Blood Moderate (2+) H Urine Nitrite Negative Ur Leukocyte Esterase Negative Urine RBC 6-10 H Urine WBC 0-5 Ur Squamous Epith Cells 0-2 Urine Bacteria None Seen Hyaline Casts 3-5 Influenza Type A (PCR) NEGATIVE Influenza Type B (PCR) NEGATIVE RSV RNA Qual (PCR) NEGATIVE SARS-CoV-2 RNA (RT-PCR) NEGATIVE 03/12/25 03/12/25 03/12/25 01:01 05:05 07:20 MCV 81.9 MCH 27.8 MCHC 33.9 RDW 13.9 Plt Count 160 MPV 9.7 Immature Gran % (Auto) 0.3 Neut % (Auto) 78.7 H Lymph % (Auto) 8.9 L Towner % (Auto) 9.9 Eos % (Auto) 1.9 Baso % (Auto) 0.3 Lymph # (Auto) 0.6 L Towner # (Auto) 0.6 Eos # (Auto) 0.1 Baso # (Auto) 0.0 Abs Immat Gran (auto) 0.02 Absolute Neuts (auto) 5.0 Absolute Nucleated RBC 0.000 Nucleated RBC % (auto) 0.0 ESR Anion Gap 11 L Estim Creat Clear Calc 117.0 Estimated GFR > 60 POC Glucose 303 H 358 H* Random Glucose 386 H* Lactic Acid Calcium 8.5 Magnesium Total Bilirubin 1.0 AST 13 ALT < 6 Alkaline Phosphatase 92 C-Reactive Protein B-Natriuretic Peptide Total Protein 5.8 L Albumin 2.7 L Urine Color Urine Appearance Urine pH Ur Specific [place] Urine Protein Urine Glucose (UA) Urine Ketones Urine Blood Urine Nitrite Ur Leukocyte Esterase Urine RBC Urine WBC Ur Squamous Epith Cells Urine Bacteria Hyaline Casts Influenza Type A (PCR) Influenza Type B (PCR) RSV RNA Qual (PCR) SARS-CoV-2 RNA (RT-PCR) 03/12/25 03/12/25 03/12/25 08:28 09:32 11:30 MCV MCH MCHC RDW Plt Count MPV Immature Gran % (Auto) Neut % (Auto) Lymph % (Auto) Towner % (Auto) Eos % (Auto) Baso % (Auto) Lymph # (Auto) Towner # (Auto) Eos # (Auto) Baso # (Auto) Abs Immat Gran (auto) Absolute Neuts (auto) Absolute Nucleated RBC Nucleated RBC % (auto) ESR Anion Gap Estim Creat Clear Calc Estimated GFR POC Glucose 362 H* 321 H 318 H Random Glucose Lactic Acid Calcium Magnesium Total Bilirubin AST ALT Alkaline Phosphatase C-Reactive Protein B-Natriuretic Peptide Total Protein Albumin Urine Color Urine Appearance Urine pH Ur Specific [place] Urine Protein Urine Glucose (UA) Urine Ketones Urine Blood Urine Nitrite Ur Leukocyte Esterase Urine RBC Urine WBC Ur Squamous Epith Cells Urine Bacteria Hyaline Casts Influenza Type A (PCR) Influenza Type B (PCR) RSV RNA Qual (PCR) SARS-CoV-2 RNA (RT-PCR) Assessment and Plan (1) Acute exacerbation of CHF (congestive heart failure): Status: Acute (2) Cellulitis of right lower extremity: Status: Acute Plan d2 for 54yo M with HTN, HLD, DM2, RAKAN not on CPAP, obesity, psoriasis with arthritis, CHF, neuropathy, retinopathy, and BPH presenting with dyspnea + fatigue as well as drainage from R ankle acute-chronic HF unknown EF - continue IV furosemide, check TTE, montior lytes/BNP/I+O/weights - continue Entresto + empagliflozin acute hypoxic respiratory failure - due to CHF; wean O2 as tolerated RLE cellulitis - 03/11- vanco + piperacillin-tazobactam; follow BCx; Wound Care consult DM2 with hyperglycemia - increase basal-bolus insulin, continue empagliflozin HTN - continue Entresto; pt should NOT be on both lisinopril and Entresto; will d/c lisinopril RAKAN - scheduled for outpatient sleep study HLD - statin BPH - tamsulosin VTE ppx - enoxaparin dispo - TBD In my clinical judgment, the patient requires continued inpatient hospitalization for the following reasons: IV ABX, IV diuresis Total time managing care of this patient today: 35 minutes. Quality Stroke Does the patient have a stroke diagnosis?: No Reason for No Anti-thrombotic by Day Two: N/A - Med Ordered VTE Prior VTE?: No VTE Risk Level:: Medical - moderate - high VTE Device Contraindication: Treatment Not Tolerated VTE Drug Contraindication: N/A - Med Ordered
[2025-03-12] MEDS: Sacubitril/Valsartan 49/51 1 TAB TABLET PO ×2 (14:44→21:35)
[2025-03-12] MEDS: Empagliflozin 10 MG TABLET PO (14:44)
[2025-03-12] MEDS: Tamsulosin HCL 0.4 MG CAPSULE PO ×2 (14:44→21:35)
--- NOTE | 2025-03-12 14:54 | HO.WOUND ---
Wound Consult: Initial 54yr old? admitted to [facility] on 03/11/25- See progress notes and H&P for detailed history.? Uzbek Speaking patient - Accounts Specialist used throughout visit. Wound consult placed for Right Lower Leg wound.? Patient agreeable to assessment and photo documentation.? Patient reports he did not make it to wound clinic prior to wound worsening - he is agreeable to follow up outpt at time of d/c. Patient educated to contact wound clinic for outpt follow up. Patient reports he has Dermatology appt next month for new infusion to treat his psoriasis as his previous treatment was not working. He reports the sites at the current moment are not symptomatic. Bilateral lower legs, elbows, knees noted for thicken silvery, white flaking psoriatic sites. Left Leg Right Leg Right Lateral Leg / ankle Right Lower Lateral Leg / ankle Etiology: ?Cellulitits site ulceration ? Wound Bed: various sized wound bed 3 open areas Drainage / Odor: sanginous drainage noted on dressing Edges: ? irregular Rosa wound: Maceration, redness, swelling and central fluctuance and some warmth noted Pain: pain reported - report neuropathy to bilateral feet Goals of Treatment: ? Durafiber for moisture management and defer to provider to consult surgery and imaging. There is a central fluctance noted -given this area is open and draining likely not surgical intervention needed but will defer to provider to assess given the fluctuance. Recommendations: Right Lower Leg - Elevate on pillows - Cleanse with Ns moist gauze pat dry. Apply barrier cream to periwound. Cover wound bed with Durafiber Ag, dry gauze, ABD pad and gauze wrap. Complete with Kain Wrap. Recommend follow up out patient Wound Clinic at [address] [place] [id number] and to call for an appointment at time of discharge. [phone].? When applicable maintain blood glucose levels per Providers order. Patient should continue follow up with his Steel Manager for Psoriasis treatment. Re-consult wound care Nurse for wound deterioration or wound changes.
[2025-03-12 16:09] LABS: Glucose, Whole Blood 225 mg/dL (60-115)
[2025-03-12] MEDS: gadobutroL 10 ML VIAL IVPUSH (17:47)
[2025-03-12 19:27] LABS: Vancomycin Random 11.8 mcg/mL (15-20)
[2025-03-12 19:58] LABS: Glucose, Whole Blood 259 mg/dL (60-115)
[2025-03-12] MEDS: Insulin Glargine,Hum.rec.anlog 100 UNIT/ML 10 ML VIAL 12 UNIT SUBCUT (21:32)
[2025-03-12] MEDS: Sennosides 8.6 MG TABLET 17.2 MG PO (21:34)
[2025-03-12] MEDS: Enoxaparin Sodium 40 MG/0.4 ML SYRINGE SUBCUT (21:36)
[2025-03-13] VITALS (10 sets, daily range): BP systolic 106–166; BP diastolic 61–87; PULSE 70–84; RESP 16–18; TEMP 36.1–36.3; O2SAT 84–99
[2025-03-13] MEDS: Piperacillin Sodium/Tazobactam 4.5 GM in 0.9 % Sodium Chloride 100 ML IV ×4 (01:04→18:15)
[2025-03-13] MEDS: Omeprazole 20 MG CAPSULE.DR PO (06:27)
[2025-03-13 06:29] LABS: Anion Gap 14 (12-20); Blood Urea Nitrogen 17 mg/dL (9-16); Calcium 8.9 mg/dL (8.4-10.2); Carbon Dioxide 28 mmol/L (22-29); Chloride 102 mmol/L (96-108); Creatinine Clr Calc Pharmacy 104.6; Estimated Glomerular Filt Rate > 60; Glucose Random 239 mg/dL (60-115); Magnesium 1.8 mg/dL (1.6-2.6); Potassium 3.3 mmol/L (3.3-5.1); Sodium 141 mmol/L (135-145)
[2025-03-13 06:33] LABS: B Type Natriuretic Peptide 359 pg/mL (<100)
[2025-03-13 07:21] LABS: Glucose, Whole Blood 299 mg/dL (60-115)
[2025-03-13] MEDS: Insulin Lispro 100 UNIT/ML 3 ML VIAL SUBCUT ×4 (07:32→21:32)
--- NOTE | 2025-03-13 08:06 | PM.CNGS ---
History of Present Illness Consult details Consult date: 03/13/25 Reason for consult: wound care (right lower leg cellulitis ) Narrative: 54-year-old Mexican-speaking male with PMH of hypertension, hyperlipidemia, insulin-dependent diabetes mellitus type 2, RAKAN, psoriasis, psoriatic arthritis, CHF, neuropathy who initially presented to the ED with multiple complaints including shortness of breath, increased fatigue, and worsening of his right lower leg wound. Patient was found to be hypoxic in the ED and was admitted to the hospitalist service for further treatment of the acute hypoxic respiratory failure, CHF exacerbation and right lower leg cellulitis. He was started on IV zosyn and vancomycin. MRI of RLE yesterday was performed which showed cellulitis with myositis and abscess measuring 3.5 x 2.2 x 9.9 cm within the subcutaneous fat at the posterolateral aspect of the distal lower extremity with associated skin thickening, edema and enhancement in the subcutaneous fat. No osteomyelitis. Patient states he was seen at [facility] 3 weeks ago with the same symptoms. He reports he developed his RLE wound around that time. He denies trauma to the area. He has history of psoriasis of b/l lower legs. He reports they debrided the wound and prescribed antibiotics and he was told to follow up at wound care. His has been caring for the wounds in the mean time. He reports worsening of the right leg swelling and redness along with purulent drainage of the wound over the last few days. He denies fever or chills. He reports the pain, redness and swelling has been worsening over the past several months. Review of Systems Constitutional: Constitutional: Denies chills and Denies fever(s) Cardiovascular: Cardiovascular: Denies chest pain Respiratory: Respiratory: Reports as per HPI Gastrointestinal: Gastrointestinal: Denies nausea and Denies vomiting Integumentary/Breasts: Skin/Breast: Reports as per HPI [facility] Past Medical History Medical History CHF (congestive heart failure) Psoriasis Psoriatic arthritis Hypercholesteremia Lumbago with sciatica, right side Elev transaminase/LDH Neuropathy Diabetes Psoriasis Family History Family History Father Diabetes HTN (hypertension) Mother Diabetes Social History Social History (Reviewed 03/11/25 @ 23:37 by [facility]lli Uriarte [facility] Members: Spouse Housing: House Do you presently have visiting nurse or other home services: No Alcohol intake: never Patient Tobacco Use Status: Never used Tobacco e-Cigarette/Vaping Use: Never Used service: No Current occupational status: employed Current occupation: [employer] Travel History Ebola Risk: Travel/Contact With Anyone From Affected Area/s: No Has Patient Experienced Ebola Symptoms: No Meds Allergies Allergy/AdvReac Type Severity Reaction Status Date / Time No Known Allergies Allergy Verified 03/11/25 16:10 Active Medications: Current Medications Acetaminophen (Acetaminophen 325 Mg Tablet) 650 mg PO Q6H PRN PRN Reason: Pain, Mild 1-3,fever,headache Albuterol/Ipratropium (Albuterol/Iprat 2.5/0.5mg 3 Ml Ampul.Neb) 3 ml INHALE Q4H PRN PRN Reason: Shortness of Breath/Wheezing Aspirin (Aspirin Enteric Coated 81 Mg Tablet.Dr) 81 mg PO DAILY [facility] Calcium Carbonate (Calcium Carbonate 750 Mg Tab.Chew) 750 mg PO Q4H PRN PRN Reason: Heartburn Dextrose (Dextrose 50 % 25 Gm/50 Ml Syringe) 25 gm IVPUSH Q15M PRN; Protocol PRN Reason: per Hypoglycemia Standing Ord. Empagliflozin (Empagliflozin 10 Mg Tablet) 10 mg PO DAILY [facility] Last Admin: 03/12/25 14:44 Dose: 10 mg Enoxaparin Sodium (Enoxaparin Sodium 40 Mg/0.4 Ml Syringe) 40 mg SUBCUT Q24H [facility] Last Admin: 03/12/25 21:36 Dose: 40 mg Furosemide (Furosemide 40 Mg Tablet) 80 mg PO BID@0900,1800 [facility]; Protocol Glucose (Glucose Gel 15 Gm Gel..Gram.) 15 gm PO Q15M PRN; Protocol PRN Reason: per Hypoglycemia Standing Ord. Piperacillin Sod/Tazobactam (Sod 4.5 gm/ Sodium Chloride) 100 mls @ 200 mls/hr IV Q6H [facility] Last Infusion: 03/13/25 07:18 Dose: Infused Vancomycin HCl 1,250 mg/ (Sodium Chloride) 250 mls @ 166.667 mls/hr IV Q12H [facility] Last Infusion: 03/12/25 23:15 Dose: Infused Insulin Glargine (Insulin Glargine,Hum.Rec.Anlog 100 Unit/Ml 10 Ml Vial) 15 unit SUBCUT BEDTIME [facility] Insulin Human Lispro (Insulin Lispro 100 Unit/Ml 3 Ml Vial) 0 unit SUBCUT QIDACHS [facility]; Protocol Last Admin: 03/13/25 07:32 Dose: 8 unit Magnesium Hydroxide (Milk Of Magnesia 30 Ml Oral.Susp) 30 ml PO DAILY PRN PRN Reason: Constipation Melatonin (Melatonin 3 Mg Tablet) 6 mg PO BEDTIME PRN PRN Reason: Insomnia Omeprazole (Omeprazole 20 Mg Capsule.Dr) 20 mg PO DAILY@0630 [facility] Last Admin: 03/13/25 06:27 Dose: 20 mg Pharmacy Consult (Consult Rx Vancomycin Dosing) 1 each MISCELLANE DAILY PRN PRN Reason: Consult order Sacubitril/Valsartan (Sacubitril/Valsartan 49/51 1 Tab Tablet) 1 tab PO BID [facility]; Protocol Last Admin: 03/12/25 21:35 Dose: 1 tab Senna (Sennosides 8.6 Mg Tablet) 17.2 mg PO BEDTIME [facility] Last Admin: 03/12/25 21:34 Dose: 17.2 mg Sodium Chloride (0.9 % Sodium Chloride Flush 3 Ml Syringe) 3 ml IVFLUSH QSHIFT [facility] Last Admin: 03/12/25 21:41 Dose: 3 ml Tamsulosin HCl (Tamsulosin Hcl 0.4 Mg Capsule) 0.4 mg PO BEDTIME [facility] Last Admin: 03/12/25 21:35 Dose: 0.4 mg Home Medications ?Medication ?Instructions ?Recorded ?Confirmed ?Last Taken ?Type aspirin 81 mg tablet,delayed 81 mg PO DAILY 02/04/21 03/12/25 Unknown History release acetaminophen 325 mg tablet 650 mg PO TID PRN fever 03/17/23 03/12/25 Unknown History atorvastatin 40 mg tablet 40 mg PO BEDTIME 03/17/23 03/12/25 Unknown History benzonatate 100 mg capsule 100 mg PO TID PRN cough 03/17/23 03/12/25 Unknown History metformin 500 mg tablet,extended 500 mg PO BID 03/17/23 03/12/25 Unknown History release 24 hr tamsulosin 0.4 mg capsule 0.4 mg PO QPM 03/17/23 03/12/25 Unknown History furosemide 40 mg tablet (Lasix) 80 mg PO BID 04/16/24 03/12/25 Unknown History empagliflozin 10 mg tablet 10 mg PO DAILY 03/12/25 03/12/25 Unknown History (Jardiance) sacubitril 49 mg-valsartan 51 mg 1 tab PO BID 03/12/25 03/12/25 Unknown History tablet (Entresto) Physical Exam Vital Signs: Vital Signs: Last Vital Signs Temp 97.2 F 03/13/25 07:44 Pulse 84 03/13/25 07:44 Resp 18 03/13/25 07:44 BP 156/87 H 03/13/25 07:44 Pulse Ox 90 L 03/13/25 07:44 O2 Del Method Room Air 03/13/25 07:44 O2 Flow Rate 2 03/13/25 03:32 BMI result Body Mass Index 33.3 Const: General: comfortable, no acute distress and alert Orientation/consciousness: patient oriented x3 Resp: Effort & Inspection: normal respiratory effort Skin: Other: scaly patches throughout b/l lower extremities Neuro: General: patient oriented x3 and moves all extremities Extrem: Other: right lower leg- skin covered in scaly patches, erythema and edema extending from proximal fibula down to right foot, two circular open wounds measuring about 1cm each of posterior lateral lower leg, large amount of old clots, sanguineous output and purulence expressed, wounds probed with surrounding pocket identified circumferentially of distal wound and also extending towards each other, no further fluctuance palpated; palpable dorsalis pedis, good ROM of foot and knee Results Labs 03/12/25 05:05 03/13/25 05:27 Labs: Abnormal lab results 03/12/25 03/12/25 03/12/25 Range/Units 08:28 09:32 11:30 BUN (9-16) mg/dL POC Glucose 362 H* 321 H 318 H (60-115) mg/dL Random Glucose (60-115) mg/dL B-Natriuretic Peptide (<100) pg/mL Random Vancomycin (15-20) mcg/mL 03/12/25 03/12/25 03/12/25 Range/Units 16:06 19:01 19:54 BUN (9-16) mg/dL POC Glucose 225 H 259 H (60-115) mg/dL Random Glucose (60-115) mg/dL B-Natriuretic Peptide (<100) pg/mL Random Vancomycin 11.8 L (15-20) mcg/mL 03/13/25 03/13/25 Range/Units 05:27 07:16 BUN 17 H (9-16) mg/dL POC Glucose 299 H (60-115) mg/dL Random Glucose 239 H (60-115) mg/dL B-Natriuretic Peptide 359 H (<100) pg/mL Random Vancomycin (15-20) mcg/mL BMP 03/13/25 05:27 Sodium 141 Potassium 3.3 Chloride 102 Carbon Dioxide 28 BUN 17 H Creatinine 1.04 Calcium 8.9 Cardiac Enzymes 03/13/25 Range/Units 05:27 Total Creatine Kinase 45 (38-174) U/L Urine 03/11/25 Range/Units 20:12 Urine Color Yellow Urine Appearance Clear Urine pH 6.0 (5.0-9.0) Ur Specific [place] 1.020 (1.005-1.025) Urine Protein >=1000 (4+) H (Neg-Trace) mg/dL Urine Glucose (UA) >=1000 H (Negative) mg/dL All other labs normal. Imaging Additional studies: MRI right tib/fib image and report reviewed Assessment and Plan (1) Cellulitis of right lower extremity: Status: Acute Plan 54-year-old male with PMH of hypertension, hyperlipidemia, insulin-dependent diabetes mellitus type 2, RAKAN, psoriasis, psoriatic arthritis, CHF, neuropathy who presented with hypoxia and worsening of his RLE wound admitted for acute hypoxic respiratory failure, CHF exacerbation and right lower leg cellulitis. He is on IV vanco and zosyn. MRI was performed which showed cellulitis, abscess of posterolateral aspect of the distal lower extremity of subq tissue without evidence of osteomyelitis. He has two open wound overlying the area of abscess and large amount of old clots and purulent drainage expressed today without further significant collection identified. Culture obtained and sent. No further opening of the abscess is needed as it appears adequately draining at this time. The wounds were packed with 1/2in iodoform packing followed by fluffs, abd dressing, kerlix and shirley wrap. Right leg elevation encouraged to reduce edema. Cont IV abx. Patient comfortable with plan. Procedures Date of Service Date of Service: 03/13/25
[2025-03-13] MEDS: Aspirin Enteric Coated 81 MG TABLET.DR PO (08:07)
[2025-03-13] MEDS: Furosemide 40 MG TABLET 80 MG PO ×2 (08:07→18:15)
[2025-03-13] MEDS: Sacubitril/Valsartan 49/51 1 TAB TABLET PO ×2 (08:07→21:30)
[2025-03-13] MEDS: Empagliflozin 10 MG TABLET PO (08:07)
[2025-03-13] MEDS: vancomycin HCL 1,250 MG in 0.9 % Sodium Chloride 250 ML 166.67 MG IV (08:08)
[2025-03-13] MEDS: 0.9 % Sodium Chloride Flush 3 ML SYRINGE IVFLUSH ×3 (08:08→21:35)
--- NOTE | 2025-03-13 11:16 | P.PNIM_ITS ---
Subjective Subjective Date of Service: 03/13/25 Interval History: breathing improved no fever leg swelling improved purulence expressed at bedside from surgery team This history was taken in Arabic from the patient. Review of Systems Review of Systems: Yes all other systems are reviewed and are negative Physical Exam 2 Vital Signs: Vital Signs: Last Vital Signs Temp 97.2 F 03/13/25 07:44 Pulse 84 03/13/25 07:44 Resp 18 03/13/25 07:44 BP 156/87 H 03/13/25 07:44 Pulse Ox 95 03/13/25 11:03 O2 Del Method Nasal Cannula 03/13/25 11:03 O2 Flow Rate 1 03/13/25 11:03 BMI result Body Mass Index 33.3 Gen: in no acute distress HEENT: sclera anicteric, moist mucus membranes Neck: supple Lungs: clear Heart: regular rate and rhythm, no murmurs Abd: soft, non-tender, non-distended Ext: bilateral leg edema Skin: warm/well-perfused, extensive psoriatic plaques on legs, R leg with crust and serosanguinous drainage from open wounds on posterior aspect Neuro: alert and oriented x3, no focal findings Psych: appropriate affect Objective Data Active Medications Acetaminophen (Acetaminophen 325 Mg Tablet) 650 mg PO Q6H PRN PRN Reason: Pain, Mild 1-3,fever,headache Albuterol/Ipratropium (Albuterol/Iprat 2.5/0.5mg 3 Ml Ampul.Neb) 3 ml INHALE Q4H PRN PRN Reason: Shortness of Breath/Wheezing Aspirin (Aspirin Enteric Coated 81 Mg Tablet.) 81 mg PO DAILY [facility] Last Admin: 03/13/25 08:07 Dose: 81 mg Documented By: GOLDY Calcium Carbonate (Calcium Carbonate 750 Mg Tab.Chew) 750 mg PO Q4H PRN PRN Reason: Heartburn Dextrose (Dextrose 50 % 25 Gm/50 Ml Syringe) 25 gm IVPUSH Q15M PRN; Protocol PRN Reason: per Hypoglycemia Standing Ord. Empagliflozin (Empagliflozin 10 Mg Tablet) 10 mg PO DAILY [facility] Last Admin: 03/13/25 08:07 Dose: 10 mg Documented By: GOLDY Enoxaparin Sodium (Enoxaparin Sodium 40 Mg/0.4 Ml Syringe) 40 mg SUBCUT Q24H [facility] Last Admin: 03/12/25 21:36 Dose: 40 mg Documented By: IRMA Furosemide (Furosemide 40 Mg Tablet) 80 mg PO BID@0900,1800 [facility]; Protocol Last Admin: 03/13/25 08:07 Dose: 80 mg Documented By: GOLDY Glucose (Glucose Gel 15 Gm Gel..Gram.) 15 gm PO Q15M PRN; Protocol PRN Reason: per Hypoglycemia Standing Ord. Piperacillin Sod/Tazobactam (Sod 4.5 gm/ Sodium Chloride) 100 mls @ 200 mls/hr IV Q6H [facility] Last Infusion: 03/13/25 07:18 Dose: Infused Documented By: GOLDY Vancomycin HCl 1,250 mg/ (Sodium Chloride) 250 mls @ 166.667 mls/hr IV Q12H [facility] Last Infusion: 03/13/25 09:53 Dose: Infused Documented By: GOLDY Insulin Glargine (Insulin Glargine,Hum.Rec.Anlog 100 Unit/Ml 10 Ml Vial) 15 unit SUBCUT BEDTIME [facility] Insulin Human Lispro (Insulin Lispro 100 Unit/Ml 3 Ml Vial) 0 unit SUBCUT QIDACHS [facility]; Protocol Last Admin: 03/13/25 07:32 Dose: 8 unit Documented By: GOLDY Magnesium Hydroxide (Milk Of Magnesia 30 Ml Oral.Susp) 30 ml PO DAILY PRN PRN Reason: Constipation Melatonin (Melatonin 3 Mg Tablet) 6 mg PO BEDTIME PRN PRN Reason: Insomnia Omeprazole (Omeprazole 20 Mg Capsule.Dr) 20 mg PO DAILY@0630 [facility] Last Admin: 03/13/25 06:27 Dose: 20 mg Documented By: IRMA Pharmacy Consult (Consult Rx Vancomycin Dosing) 1 each MISCELLANE DAILY PRN PRN Reason: Consult order Sacubitril/Valsartan (Sacubitril/Valsartan 49/51 1 Tab Tablet) 1 tab PO BID [facility]; Protocol Last Admin: 03/13/25 08:07 Dose: 1 tab Documented By: GOLDY Senna (Sennosides 8.6 Mg Tablet) 17.2 mg PO BEDTIME [facility] Last Admin: 03/12/25 21:34 Dose: 17.2 mg Documented By: IRMA Sodium Chloride (0.9 % Sodium Chloride Flush 3 Ml Syringe) 3 ml IVFLUSH QSHIFT [facility] Last Admin: 03/13/25 08:08 Dose: 3 ml Documented By: GOLDY Tamsulosin HCl (Tamsulosin Hcl 0.4 Mg Capsule) 0.4 mg PO BEDTIME [facility] Last Admin: 03/12/25 21:35 Dose: 0.4 mg Documented By: IRMA Labs 03/12/25 05:05 03/13/25 05:27 Labs: Laboratory Results - last 24 hr 03/12/25 03/12/25 03/12/25 11:30 16:06 19:01 Anion Gap Estim Creat Clear Calc Estimated GFR POC Glucose 318 H 225 H Random Glucose Calcium Magnesium Total Creatine Kinase B-Natriuretic Peptide Random Vancomycin 11.8 L 03/12/25 03/13/25 03/13/25 19:54 05:27 07:16 Anion Gap 14 Estim Creat Clear Calc 104.6 Estimated GFR > 60 POC Glucose 259 H 299 H Random Glucose 239 H Calcium 8.9 Magnesium 1.8 Total Creatine Kinase 45 B-Natriuretic Peptide 359 H Random Vancomycin ITS Impressions Chest X-Ray 03/11/25 16:34 IMPRESSION: Mild increased pulmonary vascularity question congestion. Heart size is borderline enlarged. No acute pneumonic process or pleural effusion. Electronically signed by: Lorne Palm MD 03/11/2025 04:54 PM EDT RP Venous Duplex 03/12/25 11:31 IMPRESSION: No evidence of acute DVT in the bilateral lower extremities. Electronically signed by: Balbir Locke MD 03/12/2025 12:33 PM EDT RP MRI tib/fib 03/12/25 No osteomyelitis. Cellulitis with myositis. Abscess measuring 9.9 cm. Microbiology Microbiology Results: Microbiology 03/11/25 19:30 Blood Culture - Preliminary Blood - Venous No growth after 24 hours. 03/11/25 19:17 Blood Culture - Preliminary Blood - Venous No growth after 24 hours. Assessment and Plan (1) Acute exacerbation of CHF (congestive heart failure): Status: Acute (2) Cellulitis of right lower extremity: Status: Acute Plan d3 for 54yo M with HTN, HLD, DM2, RAKAN not on CPAP, obesity, psoriasis with arthritis, CHF, neuropathy, retinopathy, and BPH presenting with dyspnea + fatigue as well as drainage from R ankle acute-chronic HF with mildly reduced EF - TTE 03/12/25: 1. Mildly reduced LV ejection fraction 45-50% with moderate LVH with pseudonormal filling pattern 2. Mildly dilated left atrium 3. Cardiac valvular Dopplers within normal limits 4. Mildly to moderately elevated right ventricular systolic pressure with mildly elevated right atrial pressures 5. No gross pericardial effusion - appears euvolemic; change IV to PO furosemide - CHF education - continue Entresto + empagliflozin acute hypoxic respiratory failure - due to CHF; wean O2 as tolerated RLE cellulitis with abscess/myositis - 03/11- vanco + piperacillin-tazobactam; follow BCx; Wound Care + Gen Surg consulted;abscess adequately draining at this point and wound culture sent DM2 with hyperglycemia - increase basal-bolus insulin, continue empagliflozin HTN - continue Entresto; pt should NOT be on both lisinopril and Entresto; d/c'ed lisinopril RAKAN - scheduled for outpatient sleep study HLD - statin BPH - tamsulosin VTE ppx - enoxaparin dispo - TBD; PT consult In my clinical judgment, the patient requires continued inpatient hospitalization for the following reasons: IV ABX Total time managing care of this patient today: 35 minutes. Quality Stroke Does the patient have a stroke diagnosis?: No Reason for No Anti-thrombotic by Day Two: N/A - Med Ordered VTE Prior VTE?: No VTE Risk Level:: Medical - moderate - high VTE Device Contraindication: Treatment Not Tolerated VTE Drug Contraindication: N/A - Med Ordered
[2025-03-13 11:20] LABS: Glucose, Whole Blood 307 mg/dL (60-115)
[2025-03-13 16:17] LABS: Glucose, Whole Blood 162 mg/dL (60-115)
[2025-03-13 19:36] LABS: Vancomycin Trough 17.4 mcg/mL (10.0-20.0)
--- NOTE | 2025-03-13 19:47 | HE.PHANOTE ---
RE: VANCO DOSING Trough came back as 17.4 mg/L. Dose is decreased to 1000 mg q12h, next trough is scheduled for 03/14/25@1900.
[2025-03-13 20:13] LABS: Glucose, Whole Blood 286 mg/dL (60-115)
[2025-03-13] MEDS: Tamsulosin HCL 0.4 MG CAPSULE PO (21:30)
[2025-03-13] MEDS: Sennosides 8.6 MG TABLET 17.2 MG PO (21:30)
[2025-03-13] MEDS: Insulin Glargine,Hum.rec.anlog 100 UNIT/ML 10 ML VIAL 15 UNIT SUBCUT (21:32)
[2025-03-13] MEDS: Enoxaparin Sodium 40 MG/0.4 ML SYRINGE SUBCUT (21:33)
[2025-03-13] MEDS: vancomycin HCL 1,000 MG in 0.9 % Sodium Chloride 250 ML 270 MG IV (21:40)
[2025-03-14] VITALS (7 sets, daily range): BP systolic 121–174; BP diastolic 63–84; PULSE 64–77; RESP 16–20; TEMP 36–36.5; O2SAT 96–98
[2025-03-14] MEDS: Piperacillin Sodium/Tazobactam 4.5 GM in 0.9 % Sodium Chloride 100 ML IV ×2 (00:12→06:38)
--- NOTE | 2025-03-14 03:50 | PC.NURSE ---
BP elevated 173/84, hr 68. Checked manual bp 162/80, hr 66. Patient denying any pain or discomfort at this time. Dr. Jamison notified of elevated bp.
[2025-03-14] MEDS: Omeprazole 20 MG CAPSULE.DR PO (06:37)
[2025-03-14] MEDS: 0.9 % Sodium Chloride Flush 3 ML SYRINGE IVFLUSH ×2 (06:38→17:21)
[2025-03-14 07:12] LABS: Glucose, Whole Blood 190 mg/dL (60-115)
[2025-03-14] MEDS: Sacubitril/Valsartan 49/51 1 TAB TABLET PO ×2 (07:33→20:55)
[2025-03-14] MEDS: Empagliflozin 10 MG TABLET PO (07:33)
[2025-03-14] MEDS: Furosemide 40 MG TABLET 80 MG PO ×2 (07:33→17:20)
[2025-03-14] MEDS: Aspirin Enteric Coated 81 MG TABLET.DR PO (07:33)
[2025-03-14] MEDS: Insulin Lispro 100 UNIT/ML 3 ML VIAL SUBCUT ×4 (07:33→20:55)
--- NOTE | 2025-03-14 08:07 | PM.PNGS ---
Subjective Subjective Date of Service: 03/14/25 <Michael Tavarez PA-C - Last Filed: 03/14/25 08:46> 03/14/25 <Joshua Osman MD - Last Filed: 03/14/25 13:35> Interval history: Interpretation services used for encounter. Patient reports he is doing well today. He rates pain at the wound site as 1/10. Denies fever, chills. Denies warmth or swelling <Michael Tavarez PA-C - Last Filed: 03/14/25 08:46> Physical Exam Vital Signs: Vital Signs: Last Vital Signs Temp 97.2 F 03/14/25 07:49 Pulse 69 03/14/25 07:49 Resp 18 03/14/25 07:49 BP 174/81 H 03/14/25 07:49 Pulse Ox 97 03/14/25 07:49 O2 Del Method Room Air 03/14/25 07:49 O2 Flow Rate 1 03/14/25 03:23 BMI result Body Mass Index 33.3 <BENITO Villanueva Last Filed: 03/14/25 08:46> Const: General: comfortable and no acute distress <BENITO Villanueva Last Filed: 03/14/25 08:46> Orientation/consciousness: patient oriented x3 <BENITO Villanueva Last Filed: 03/14/25 08:46> Resp: Effort & Inspection: normal respiratory effort and able to speak in complete sentences <Michael Tavarez PA-C - Last Filed: 03/14/25 08:46> Neuro: General: patient oriented x3 <BENITO Villanueva Last Filed: 03/14/25 08:46> Extrem: Other: Edema improved, no palpable area of fluctuance. Inferior wound tracked about 2.5 cm inferiorly. Superior wound tracked about 1.5 cm inferiorly. Unable to appreciate surrounding erythema due to psoriatic changes in the area <BENITO Villanueva Last Filed: 03/14/25 08:46> Objective Data Active Medications Acetaminophen (Acetaminophen 325 Mg Tablet) 650 mg PO Q6H PRN PRN Reason: Pain, Mild 1-3,fever,headache Albuterol/Ipratropium (Albuterol/Iprat 2.5/0.5mg 3 Ml Ampul.Neb) 3 ml INHALE Q4H PRN PRN Reason: Shortness of Breath/Wheezing Aspirin (Aspirin Enteric Coated 81 Mg Tablet.Dr) 81 mg PO DAILY [facility] Last Admin: 03/14/25 07:33 Dose: 81 mg Documented By: FLORENCE Calcium Carbonate (Calcium Carbonate 750 Mg Tab.Chew) 750 mg PO Q4H PRN PRN Reason: Heartburn Dextrose (Dextrose 50 % 25 Gm/50 Ml Syringe) 25 gm IVPUSH Q15M PRN; Protocol PRN Reason: per Hypoglycemia Standing Ord. Empagliflozin (Empagliflozin 10 Mg Tablet) 10 mg PO DAILY [facility] Last Admin: 03/14/25 07:33 Dose: 10 mg Documented By: FLORENCE Enoxaparin Sodium (Enoxaparin Sodium 40 Mg/0.4 Ml Syringe) 40 mg SUBCUT Q24H [facility] Last Admin: 03/13/25 21:33 Dose: 40 mg Documented By: IRMA Furosemide (Furosemide 40 Mg Tablet) 80 mg PO BID@0900,1800 [facility]; Protocol Last Admin: 03/14/25 07:33 Dose: 80 mg Documented By: FLORENCE Glucose (Glucose Gel 15 Gm Gel..Gram.) 15 gm PO Q15M PRN; Protocol PRN Reason: per Hypoglycemia Standing Ord. Piperacillin Sod/Tazobactam (Sod 4.5 gm/ Sodium Chloride) 100 mls @ 200 mls/hr IV Q6H [facility] Last Infusion: 03/14/25 07:13 Dose: Infused Documented By: FLORENCE Vancomycin HCl 1,000 mg/ (Sodium Chloride) 270 mls @ 270 mls/hr IV Q12H [facility] Last Infusion: 03/13/25 22:48 Dose: Infused Documented By: IRMA Insulin Glargine (Insulin Glargine,Hum.Rec.Anlog 100 Unit/Ml 10 Ml Vial) 15 unit SUBCUT BEDTIME [facility] Last Admin: 03/13/25 21:32 Dose: 15 unit Documented By: IRMA Insulin Human Lispro (Insulin Lispro 100 Unit/Ml 3 Ml Vial) 0 unit SUBCUT QIDACHS [facility]; Protocol Last Admin: 03/14/25 07:33 Dose: 2 unit Documented By: FLORENCE Magnesium Hydroxide (Milk Of Magnesia 30 Ml Oral.Susp) 30 ml PO DAILY PRN PRN Reason: Constipation Melatonin (Melatonin 3 Mg Tablet) 6 mg PO BEDTIME PRN PRN Reason: Insomnia Omeprazole (Omeprazole 20 Mg Capsule.Dr) 20 mg PO DAILY@0630 [facility] Last Admin: 03/14/25 06:37 Dose: 20 mg Documented By: FLORENCE Pharmacy Consult (Consult Rx Vancomycin Dosing) 1 each MISCELLANE DAILY PRN PRN Reason: Consult order Sacubitril/Valsartan (Sacubitril/Valsartan 49/51 1 Tab Tablet) 1 tab PO BID [facility]; Protocol Last Admin: 03/14/25 07:33 Dose: 1 tab Documented By: FLORENCE Senna (Sennosides 8.6 Mg Tablet) 17.2 mg PO BEDTIME [facility] Last Admin: 03/13/25 21:30 Dose: 17.2 mg Documented By: IRMA Sodium Chloride (0.9 % Sodium Chloride Flush 3 Ml Syringe) [facility] Last Admin: 03/14/25 06:38 Dose: 3 ml Documented By: FLORENCE Tamsulosin HCl (Tamsulosin Hcl 0.4 Mg Capsule) 0.4 mg PO BEDTIME [facility] Last Admin: 03/13/25 21:30 Dose: 0.4 mg Documented By: IRMA <Michael Tavarez PA-C - Last Filed: 03/14/25 08:46> Labs CBC & Chem 7: 03/12/25 05:05 03/14/25 10:07 <Michael Tavarez PA-C - Last Filed: 03/14/25 08:46> Labs: Laboratory Results - last 24 hr 03/13/25 03/13/25 03/13/25 11:16 16:13 19:11 POC Glucose 307 H 162 H Vancomycin Trough 17.4 03/13/25 03/14/25 20:09 07:03 POC Glucose 286 H 190 H Vancomycin Trough <Michael Tavarez PA-C - Last Filed: 03/14/25 08:46> Microbiology Microbiology Results: Microbiology 03/11/25 19:30 Blood Culture - Preliminary Blood - Venous No growth after 48 hours. 03/11/25 19:17 Blood Culture - Preliminary Blood - Venous No growth after 48 hours. 03/13/25 09:00 Gram Stain - Final Leg Right <Michael Tavarez PA-C - Last Filed: 03/14/25 08:46> Procedures Date of Service Date of Service: 03/14/25 <Michael Tavarez PA-C - Last Filed: 03/14/25 08:46> 03/14/25 <Joshua Osman MD - Last Filed: 03/14/25 13:35> Progress Note: A&P Assessment and plan (1) Cellulitis of right lower extremity: Status: Acute <Michael Tavarez PA-C - Last Filed: 03/14/25 08:46> Assessment and Plan: 54-year-old male being followed for RLE cellulitis with open wounds. Patient improving today. pain is controlled. He is afebrile. Dressing was removed, image of wound above. Small amount of sanguenous fluid expressed. Noted improvement in edema. The wounds were repacked with 1/2 packing and redressed with gauze and wrapped. Gram stain of culture results significant for 3+ gram pos cocci. Culture remains pending. Continue IV ABX recommend elevation of extremity Recommend daily dressing changes <Michael Tavarez PA-C - Last Filed: 03/14/25 08:46> 54-year-old male being followed for RLE cellulitis with open wounds. Patient improving today. pain is controlled. He is afebrile. Dressing was removed, image of wound above. Small amount of sanguenous fluid expressed. Noted improvement in edema. The wounds were repacked with 1/2 packing and redressed with gauze and wrapped. Gram stain of culture results significant for 3+ gram pos cocci. Culture remains pending. Continue IV ABX recommend elevation of extremity Recommend daily dressing changes Patient seen and wounds examined. Agree with the above assessment and plan. Continue antibiotics, local wound care. <Joshua Osman MD - Last Filed: 03/14/25 13:35> Time Spent With Patient Time: Total time managing care of this patient today ____ minutes. <Michael Tavarez PA-C - Last Filed: 03/14/25 08:46> Quality Stroke Does the patient have a stroke diagnosis?: No <Michael Tavarez PA-C - Last Filed: 03/14/25 08:46> Reason for No Anti-thrombotic by Day Two: N/A - Med Ordered <Michael Tavarez PA-C - Last Filed: 03/14/25 08:46> VTE Prior VTE?: No <BENITO Villanueva Last Filed: 03/14/25 08:46> VTE Risk Level:: Medical - moderate - high <BENITO Villanueva Last Filed: 03/14/25 08:46> VTE Device Contraindication: Treatment Not Tolerated <Michael Tavarez PA-C - Last Filed: 03/14/25 08:46> VTE Drug Contraindication: N/A - Med Ordered <BENITO Villanueva Last Filed: 03/14/25 08:46>
[2025-03-14] MEDS: vancomycin HCL 1,000 MG in 0.9 % Sodium Chloride 250 ML 270 MG IV (08:42)
[2025-03-14 10:26] LABS: Creatinine Clr Calc Pharmacy 101.7; Estimated Glomerular Filt Rate > 60
--- NOTE | 2025-03-14 10:50 | HO.PM.IMPN ---
Subjective Subjective Date of Service: 03/14/25 Interval History: RLE less swollen no fever no dyspnea off O2 This history was taken in [place] from the patient. Review of Systems Review of Systems: Yes all other systems are reviewed and are negative Physical Exam Vital Signs: Vital Signs: Last Vital Signs Temp 97.2 F 03/14/25 07:49 Pulse 69 03/14/25 07:49 Resp 18 03/14/25 07:49 BP 174/81 H 03/14/25 07:49 Pulse Ox 97 03/14/25 07:49 O2 Del Method Room Air 03/14/25 07:49 O2 Flow Rate 1 03/14/25 03:23 BMI result Body Mass Index 33.3 Gen: in no acute distress HEENT: sclera anicteric, moist mucus membranes Neck: supple Lungs: clear Heart: regular rate and rhythm, no murmurs Abd: soft, non-tender, non-distended Ext: bilateral leg edema Skin: warm/well-perfused, extensive psoriatic plaques on legs, R leg 2 packed wounds with minimal erythema, no purulence or fluctuance Neuro: alert and oriented x3, no focal findings Psych: appropriate affect Objective Data Active Medications Acetaminophen (Acetaminophen 325 Mg Tablet) 650 mg PO Q6H PRN PRN Reason: Pain, Mild 1-3,fever,headache Albuterol/Ipratropium (Albuterol/Iprat 2.5/0.5mg 3 Ml Ampul.Neb) 3 ml INHALE Q4H PRN PRN Reason: Shortness of Breath/Wheezing Aspirin (Aspirin Enteric Coated 81 Mg Tablet.) 81 mg PO DAILY [facility] Last Admin: 03/14/25 07:33 Dose: 81 mg Documented By: FLORENCE Calcium Carbonate (Calcium Carbonate 750 Mg Tab.Chew) 750 mg PO Q4H PRN PRN Reason: Heartburn Dextrose (Dextrose 50 % 25 Gm/50 Ml Syringe) 25 gm IVPUSH Q15M PRN; Protocol PRN Reason: per Hypoglycemia Standing Ord. Empagliflozin (Empagliflozin 10 Mg Tablet) 10 mg PO DAILY [facility] Last Admin: 03/14/25 07:33 Dose: 10 mg Documented By: FLORENCE Enoxaparin Sodium (Enoxaparin Sodium 40 Mg/0.4 Ml Syringe) 40 mg SUBCUT Q24H [facility] Last Admin: 03/13/25 21:33 Dose: 40 mg Documented By: IRMA Furosemide (Furosemide 40 Mg Tablet) 80 mg PO BID@0900,1800 [facility]; Protocol Last Admin: 03/14/25 07:33 Dose: 80 mg Documented By: FLORENCE Glucose (Glucose Gel 15 Gm Gel..Gram.) 15 gm PO Q15M PRN; Protocol PRN Reason: per Hypoglycemia Standing Ord. Piperacillin Sod/Tazobactam (Sod 4.5 gm/ Sodium Chloride) 100 mls @ 200 mls/hr IV Q6H [facility] Last Infusion: 03/14/25 07:13 Dose: Infused Documented By: FLORENCE Vancomycin HCl 1,000 mg/ (Sodium Chloride) 270 mls @ 270 mls/hr IV Q12H [facility] Last Infusion: 03/14/25 09:45 Dose: Infused Documented By: FLORENCE Insulin Glargine (Insulin Glargine,Hum.Rec.Anlog 100 Unit/Ml 10 Ml Vial) 15 unit SUBCUT BEDTIME [facility] Last Admin: 03/13/25 21:32 Dose: 15 unit Documented By: IRMA Insulin Human Lispro (Insulin Lispro 100 Unit/Ml 3 Ml Vial) 0 unit SUBCUT QIDACHS [facility]; Protocol Last Admin: 03/14/25 07:33 Dose: 2 unit Documented By: FLORENCE Magnesium Hydroxide (Milk Of Magnesia 30 Ml Oral.Susp) 30 ml PO DAILY PRN PRN Reason: Constipation Melatonin (Melatonin 3 Mg Tablet) 6 mg PO BEDTIME PRN PRN Reason: Insomnia Omeprazole (Omeprazole 20 Mg Capsule.Dr) 20 mg PO DAILY@0630 [facility] Last Admin: 03/14/25 06:37 Dose: 20 mg Documented By: FLORENCE Pharmacy Consult (Consult Rx Vancomycin Dosing) 1 each MISCELLANE DAILY PRN PRN Reason: Consult order Sacubitril/Valsartan (Sacubitril/Valsartan 49/51 1 Tab Tablet) 1 tab PO BID [facility]; Protocol Last Admin: 03/14/25 07:33 Dose: 1 tab Documented By: FLORENCE Senna (Sennosides 8.6 Mg Tablet) 17.2 mg PO BEDTIME [facility] Last Admin: 03/13/25 21:30 Dose: 17.2 mg Documented By: IRMA Sodium Chloride (0.9 % Sodium Chloride Flush 3 Ml Syringe) 3 ml IVFLUSH QSHIFT [facility] Last Admin: 03/14/25 06:38 Dose: 3 ml Documented By: FLORENCE Tamsulosin HCl (Tamsulosin Hcl 0.4 Mg Capsule) 0.4 mg PO BEDTIME [facility] Last Admin: 03/13/25 21:30 Dose: 0.4 mg Documented By: IRMA Labs 03/12/25 05:05 03/14/25 10:07 Labs: Laboratory Results - last 24 hr 03/13/25 03/13/25 03/13/25 11:16 16:13 19:11 Estim Creat Clear Calc Estimated GFR POC Glucose 307 H 162 H Vancomycin Trough 17.4 03/13/25 03/14/25 03/14/25 20:09 07:03 10:07 Estim Creat Clear Calc 101.7 Estimated GFR > 60 POC Glucose 286 H 190 H Vancomycin Trough Microbiology Microbiology Results: Microbiology 03/13/25 09:00 Gram Stain - Final Leg Right Routine Culture - Preliminary Staphylococcus aureus 03/11/25 19:30 Blood Culture - Preliminary Blood - Venous No growth after 48 hours. 03/11/25 19:17 Blood Culture - Preliminary Blood - Venous No growth after 48 hours. Assessment and Plan (1) Acute exacerbation of CHF (congestive heart failure): Status: Acute (2) Cellulitis of right lower extremity: Status: Acute Plan d4 for 54yo M with HTN, HLD, DM2, RAKAN not on CPAP, obesity, psoriasis with arthritis, CHF, neuropathy, retinopathy, and BPH presenting with dyspnea + fatigue as well as drainage from R ankle acute-chronic HF with mildly reduced EF - TTE 03/12/25: 1. Mildly reduced LV ejection fraction 45-50% with moderate LVH with pseudonormal filling pattern 2. Mildly dilated left atrium 3. Cardiac valvular Dopplers within normal limits 4. Mildly to moderately elevated right ventricular systolic pressure with mildly elevated right atrial pressures 5. No gross pericardial effusion - changed IV to PO furosemide 03/13 - CHF education - continue Entresto + empagliflozin acute hypoxic respiratory failure - due to CHF; resolved RLE cellulitis with abscess/myositis - BCx negative; Wound Care + Gen Surg consulted; abscess adequately draining at this point and wound culture sent and growing Staphylococcus aureus, susceptibilities pending; continue vancomycin 03/11-, d/c piperacillin-tazobactam 03/11-03/14 DM2 with hyperglycemia - increase basal-bolus insulin, continue empagliflozin HTN - continue Entresto; pt should NOT be on both lisinopril and Entresto; d/c'ed lisinopril RAKAN - scheduled for outpatient sleep study HLD - statin BPH - tamsulosin VTE ppx - enoxaparin dispo - home with VNA In my clinical judgment, the patient requires continued inpatient hospitalization for the following reasons: IV ABX, wound culture pending Total time managing care of this patient today: 35 minutes. Quality Stroke Does the patient have a stroke diagnosis?: No Reason for No Anti-thrombotic by Day Two: N/A - Med Ordered VTE Prior VTE?: No VTE Risk Level:: Medical - moderate - high VTE Device Contraindication: Treatment Not Tolerated VTE Drug Contraindication: N/A - Med Ordered
[2025-03-14 11:16] LABS: Glucose, Whole Blood 231 mg/dL (60-115)
--- NOTE | 2025-03-14 15:59 | MHC.CM.PN ---
perrounds pt expected to dc tomorrow vna notified
[2025-03-14 17:14] LABS: Glucose, Whole Blood 177 mg/dL (60-115)
[2025-03-14 19:19] LABS: Vancomycin Random 16.3 mcg/mL (15-20)
[2025-03-14 19:27] LABS: Glucose, Whole Blood 209 mg/dL (60-115)
--- NOTE | 2025-03-14 19:27 | HE.PHANOTE ---
RE: VANCO DOSING Trough came back as 16.3 mg/L which is supratherapeutic for indication (skin infection). Dose is decreased to 750 mg q12h, next trough is scheduled for 03/15/25 @1900.
[2025-03-14] MEDS: Sennosides 8.6 MG TABLET 17.2 MG PO (20:55)
[2025-03-14] MEDS: Tamsulosin HCL 0.4 MG CAPSULE PO (20:55)
[2025-03-14] MEDS: Insulin Glargine,Hum.rec.anlog 100 UNIT/ML 10 ML VIAL 18 UNIT SUBCUT (20:56)
[2025-03-14] MEDS: vancomycin HCL 750 MG in 0.9 % Sodium Chloride 250 ML 265 MG IV (20:56)
[2025-03-14] MEDS: Enoxaparin Sodium 40 MG/0.4 ML SYRINGE SUBCUT (21:03)
[2025-03-15] MEDS: Acetaminophen 325 MG TABLET 650 MG PO
[2025-03-15 03:18] VITALS: BP 135/64; PULSE 64; RESP 16; TEMP 36.4; O2SAT 98
[2025-03-15] MEDS: Omeprazole 20 MG CAPSULE.DR PO (05:40)
[2025-03-15 06:50] LABS: Creatinine Clr Calc Pharmacy 119.6; Estimated Glomerular Filt Rate > 60
[2025-03-15 07:25] VITALS: BP 157/72; PULSE 64; RESP 16; TEMP 36.3; O2SAT 94
[2025-03-15 07:32] LABS: Glucose, Whole Blood 180 mg/dL (60-115)
[2025-03-15] MEDS: Furosemide 40 MG TABLET 80 MG PO (07:48)
[2025-03-15] MEDS: Empagliflozin 10 MG TABLET PO (07:49)
[2025-03-15] MEDS: Sacubitril/Valsartan 49/51 1 TAB TABLET PO (07:49)
[2025-03-15] MEDS: Aspirin Enteric Coated 81 MG TABLET.DR PO (07:49)
[2025-03-15] MEDS: Insulin Lispro 100 UNIT/ML 3 ML VIAL SUBCUT ×2 (07:49→12:12)
[2025-03-15] MEDS: 0.9 % Sodium Chloride Flush 3 ML SYRINGE IVFLUSH ×2 (07:52)
[2025-03-15] MEDS: vancomycin HCL 750 MG in 0.9 % Sodium Chloride 250 ML 265 MG IV (09:23)
--- NOTE | 2025-03-15 11:11 | P.F2F_ITS ---
Service Date Service Date: 03/15/25 Encounter Date of encounter: 03/15/25 Reasons for Services Signs and symptoms assessed: CHF, wound care Reason for long term: wound care, medication management, medication treatment and teach disease management Reason for physical therapy: home safety and mobility, therapeutic exercises, gait/transfer training, assess need for DME, ADL training and energy conservation MD Overseeing Care: Marilee Cordero Homebound: Leaving the home is medically contraindicated at this time without the asist of a device and/or another person due th the listed conditions above and below. Reason homebound: immunosuppression / infection risk and weakness related to hospital stay Homebound supporting statement: Topical Wound Care Recommendations: Right Lower Leg - Elevate on pillows - Cleanse with NS moist gauze pat dry. Apply barrier cream to periwound. Cover wound bed with Durafiber Ag, dry gauze, ABD pad and gauze wrap. Complete with Kain Wrap. Change every 2-3 days. May use compression stockings over dressing in place of kain wrap when available. Recommend follow up out patient Wound Clinic at [address] [place] [address] and to call for an appointment at time of discharge. [phone].? When applicable maintain blood glucose levels per Providers order. Patient should continue follow up with his [employer] for Psoriasis treatment. Certification: Based on the above findings, I certify that this patient is confined to the home and needs intermittent long term care, physical therapy and/or speech therapy, or continues to need occupational therapy. The patient is under my care, and I have initiated the establishment of the plan of care. The patient will be followed by a physician who will periodically review the plan of care. Time Spent With Patient Time: Total time managing care of this patient today ____ minutes.
--- NOTE | 2025-03-15 11:12 | PM.DS ---
DS: Providers Provider Date of Service: 03/15/25 Date of admission: 03/11/25 21:47 Date of discharge: 03/15/25 Primary care physician: BRANDEN Patel Consults: 03/11/25 23:44 Consult to Wound Care Routine Reason for consultation: Cellulitis/psoriatic plaques 03/12/25 14:56 Consult to General Surgery Routine Consulting Provider: [facility] Reason for consultation: cellulitis R leg with ?purlence DS: Diagnosis Discharge Diagnosis (1) Cellulitis of right lower extremity: Status: Acute (2) Cellulitis and abscess of right leg: Status: Acute (3) Acute on chronic heart failure with mildly reduced ejection fraction (HFmrEF, 41-49%): Status: Acute (4) Acute hypoxic respiratory failure: Status: Acute (5) Psoriasis: Status: Acute DS: Summary Hospital Course Hospital Course: From the history and physical by the admitting hospitalist, GALINDO Uriarte, 03/11/25: Patient is a 54-year-old Thai-speaking male (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 Patient states he was recently at [facility] with the same symptoms but in addition patient is now reporting some oozing and drainage from the right ankle area. ESR 94, CRP 3.4. Patient has chronic psoriatic plaques on both legs and on both elbows. Patient has been doing dressing care with his spouse as prescribed at [facility] and is not currently following with the Wound Care Clinic for these chronic psoriatic areas. Patient is reporting increasing pain in the right leg only. Patient currently does have full range of motion and denies any recent falls or injury involving the right lower extremity. 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 Patient does follow with a material mover for his psoriasis but does not follow with the wound care clinic at this time. Patient follows with a air route traffic controller but there is no documentation that is through [facility]. Patient has no record of echocardiogram in the past here at [facility].. BNP 714. Patient initially hypoxic and now on 2 L and after 80 mg of IV Lasix, patient has stabilized. Patient does not use oxygen at home. Patient was also febrile and blood cultures are pending. Patient was started on vanco and Zosyn in the emergency department. UA negative for UTI. Chest x-ray noted for increased pulmonary congestion with borderline cardiomegaly. No evidence of pneumonia. Patient being admitted for acute hypoxic respiratory failure, CHF exacerbation and wound care issues with possible skin infection. 54yo M with HTN, HLD, DM2, RAKAN not on CPAP, obesity, psoriasis with arthritis, CHF, neuropathy, retinopathy, and BPH presenting with dyspnea + fatigue as well as drainage from R leg. He was admitted to the medical-surgical unit. Hospital course by problem: acute-chronic HF with mildly reduced EF - TTE 03/12/25: 1. Mildly reduced LV ejection fraction 45-50% with moderate LVH with pseudonormal filling pattern 2. Mildly dilated left atrium 3. Cardiac valvular Dopplers within normal limits 4. Mildly to moderately elevated right ventricular systolic pressure with mildly elevated right atrial pressures 5. No gross pericardial effusion - diuresed briefly with IV furosemide and once euvolemic, changed back to usual PO furosemide dosing. Entresto and empagliflozin continued. Should follow up with his air route traffic controller within 2 weeks. acute hypoxic respiratory failure - due to CHF; resolved RLE cellulitis with abscess/myositis - on MRI, found to have abscess. Wound Care + Gen Surg consulted; abscess adequately draining spontaneously. Wound culture sent and grew MRSA. He was treated with IV piperacillin-tazobactam 03/11-03/14 and IV vancomycin 03/11-03/15, then discharged on clindamycin for 5 days. Outpatient wound care orders for visiting nurse: Right Lower Leg - Elevate on pillows - Cleanse with NS moist gauze pat dry. Apply barrier cream to periwound. Cover wound bed with Durafiber Ag, dry gauze, ABD pad and gauze wrap. Complete with Kain Wrap. Change every 2-3 days. May use compression stockings over dressing in place of kain wrap when available. Recommend follow up out patient Wound Clinic at [address] [place] [id number] and to call for an appointment at time of discharge. [phone].? When applicable maintain blood glucose levels per Providers order. Patient should continue follow up with his [employer] for Psoriasis treatment. He was discharged home with [facility] services for home PT, CHF teaching/monitoring, and wound care. Time Attestation Discharge Coordination Time (in mins): 45 Quality: Safe Use of Opioids Does Pt have an Active Cancer Diagnosis on the Problem List?: No Quality: Stroke Does the patient have a stroke diagnosis?: No Physical Exam Vital Signs: Vital Signs: Last Vital Signs Temp 97.3 F 03/15/25 07:25 Pulse 64 03/15/25 07:25 Resp 16 03/15/25 07:25 BP 157/72 H 03/15/25 07:25 Pulse Ox 94 03/15/25 07:25 O2 Del Method Room Air 03/15/25 07:25 O2 Flow Rate 1 03/15/25 03:18 BMI result Body Mass Index 33.3 Gen: in no acute distress HEENT: sclera anicteric, moist mucus membranes Neck: supple Lungs: clear Heart: regular rate and rhythm, no murmurs Abd: soft, non-tender, non-distended Ext: bilateral leg edema Skin: warm/well-perfused, extensive psoriatic plaques on legs, R leg drained wounds with minimal erythema, no purulence or fluctuance Neuro: alert and oriented x3, no focal findings Psych: appropriate affect DS: Data Data Completed and Pending Completed studies during hospitalization [Text1]: Laboratory Results WBC 6.4 X10*3/uL (4.8-10.8) 03/12/25 05:05 RBC 3.71 X10*6/uL (4.60-5.80) L 03/12/25 05:05 Hgb 10.3 g/dl (14.0-18.0) L 03/12/25 05:05 Hct 30.4 % (42.0-52.0) L 03/12/25 05:05 MCV 81.9 fL (80.0-98.0) 03/12/25 05:05 MCH 27.8 pg (27.0-33.0) 03/12/25 05:05 MCHC 33.9 g/dl (31.0-36.0) 03/12/25 05:05 RDW 13.9 % (11.0-16.0) 03/12/25 05:05 Plt Count 160 X10*3/uL (160-400) 03/12/25 05:05 MPV 9.7 fL (9.4-12.4) 03/12/25 05:05 Immature Gran % (Auto) 0.3 % (0.0-0.4) 03/12/25 05:05 Neut % (Auto) 78.7 % (45-73) H 03/12/25 05:05 Lymph % (Auto) 8.9 % (20-40) L 03/12/25 05:05 [place] % (Auto) 9.9 % (2-11) 03/12/25 05:05 Eos % (Auto) 1.9 % (0-4) 03/12/25 05:05 Baso % (Auto) 0.3 % (0-2) 03/12/25 05:05 Lymph # (Auto) 0.6 X10*3/uL (1.2-4.9) L 03/12/25 05:05 [place] # (Auto) 0.6 X10*3/uL (0.1-1.2) 03/12/25 05:05 Eos # (Auto) 0.1 X10*3/uL (0.0-0.4) 03/12/25 05:05 Baso # (Auto) 0.0 X10*3/uL (0.0-0.2) 03/12/25 05:05 Abs Immat Gran (auto) 0.02 X10*3/uL (0.00-0.03) 03/12/25 05:05 Absolute Neuts (auto) 5.0 x10*3/uL (2.0-8.3) 03/12/25 05:05 Absolute Nucleated RBC 0.000 X10*3/uL (0.0-0.012) 03/12/25 05:05 Nucleated RBC % (auto) 0.0 /100WBC (0.0-0.2) 03/12/25 05:05 ESR 94 MM/HR (0-15) H 03/11/25 16:31 Hold Purple Top SEE NOTE 03/15/25 06:06 Sodium 141 mmol/L (135-145) 03/13/25 05:27 Potassium 3.3 mmol/L (3.3-5.1) 03/13/25 05:27 Chloride 102 mmol/L (96-108) 05/15/25 05:27 Carbon Dioxide 28 mmol/L (22-29) 03/13/25 05:27 Anion Gap 14 (12-20) 03/13/25 05:27 BUN 17 mg/dL (9-16) H 03/13/25 05:27 Creatinine 0.91 mg/dL (0.5-1.4) 03/15/25 06:06 Estim Creat Clear Calc 119.6 03/15/25 06:06 Estimated GFR > 60 03/15/25 06:06 POC Glucose 180 mg/dL (60-115) H 03/15/25 07:28 Random Glucose 239 mg/dL (60-115) H 03/13/25 05:27 Lactic Acid 0.9 mmol/L (0.5-2.0) 03/11/25 19:31 Calcium 8.9 mg/dL (8.4-10.2) 03/13/25 05:27 Magnesium 1.8 mg/dL (1.6-2.6) 03/13/25 05:27 Total Bilirubin 1.0 mg/dL (0.0-1.0) 03/12/25 05:05 AST 13 U/L (5-37) 03/12/25 05:05 ALT < 6 U/L (0-40) 03/12/25 05:05 Alkaline Phosphatase 92 U/L (39-117) 03/12/25 05:05 Total Creatine Kinase 45 U/L (38-174) 03/13/25 05:27 Troponin I High Sens 39.6 ng/L (<3.5-35.0) H 03/11/25 18:22 C-Reactive Protein 3.41 mg/dL (< or = 0.50) H 03/11/25 16:31 B-Natriuretic Peptide 359 pg/mL (<100) H 03/13/25 05:27 Total Protein 5.8 g/dL (6.5-8.0) L 03/12/25 05:05 Albumin 2.7 g/dL (3.5-5.0) L 03/12/25 05:05 Hold Yellow Top See Note 03/15/25 06:06 Urine Color Yellow 03/11/25 20:12 Urine Appearance Clear 03/11/25 20:12 Urine pH 6.0 (5.0-9.0) 03/11/25 20:12 Ur Specific [place] 1.020 (1.005-1.025) 03/11/25 20:12 Urine Protein >=1000 (4+) mg/dL (Neg-Trace) H 03/11/25 20:12 Urine Glucose (UA) >=1000 mg/dL (Negative) H 03/11/25 20:12 Urine Ketones Negative mg/dL (Negative) 03/11/25 20:12 Urine Blood Moderate (2+) (Negative) H 03/11/25 20:12 Urine Nitrite Negative (Negative) 03/11/25 20:12 Ur Leukocyte Esterase Negative (Negative) 03/11/25 20:12 Urine RBC 6-10 /HPF (0-2) H 03/11/25 20:12 Urine WBC 0-5 /HPF (0-5) 03/11/25 20:12 Ur Squamous Epith Cells 0-2 /HPF (0-2) 03/11/25 20:12 Urine Bacteria None Seen (None Seen) 03/11/25 20:12 Hyaline Casts 3-5 /LPF (0-2) 03/11/25 20:12 Vancomycin Trough 17.4 mcg/mL (10.0-20.0) 03/13/25 19:11 Random Vancomycin 16.3 mcg/mL (15-20) 03/14/25 18:58 Influenza Type A (PCR) NEGATIVE (Negative) 03/11/25 16:31 Influenza Type B (PCR) NEGATIVE (Negative) 03/11/25 16:31 RSV RNA Qual (PCR) NEGATIVE (Negative) 03/11/25 16:31 SARS-CoV-2 RNA (RT-PCR) NEGATIVE (Negative) 03/11/25 16:31 Impressions Chest X-Ray 03/11/25 16:34 IMPRESSION: Mild increased pulmonary vascularity question congestion. Heart size is borderline enlarged. No acute pneumonic process or pleural effusion. Electronically signed by: Lorne Palm MD 03/11/2025 04:54 PM EDT RP Venous Duplex 03/12/25 11:31 IMPRESSION: No evidence of acute DVT in the bilateral lower extremities. Electronically signed by: Balbir Locke MD 03/12/2025 12:33 PM EDT RP Discharge Plan Discharge Anticipated Discharge Date/Time: 03/15/25 16:06 Patient Disposition: Home Health Service Discharge Diagnosis: right leg abscess/cellulitis CHF exacerbation Referrals: [facility] [Provider Group] - 1 Week Marilee Cordero FNP [Primary Care Provider] - 1 Week Discharge Medications: New clindamycin HCl 300 mg capsule 300 mg PO TID Qty: 15 0RF Continued Jardiance 10 mg tablet 10 mg PO DAILY Entresto 49-51 mg tablet 1 tab PO BID aspirin 81 mg tablet,delayed release (DR/EC) 81 mg PO DAILY furosemide [Lasix] 40 mg tablet 80 mg PO BID benzonatate 100 mg capsule 100 mg PO TID PRN (Reason: cough) acetaminophen 325 mg tablet 650 mg PO TID PRN (Reason: fever) atorvastatin 40 mg tablet 40 mg PO BEDTIME metformin 500 mg tablet extended release 24 hr 500 mg PO BID tamsulosin 0.4 mg capsule 0.4 mg PO QPM Discharge Orders: Discharge Order (Routine); Ordered 03/15/25 Ordered By: Sena Neff Diet: Diabetic diet Activity on Discharge: As tolerated Stand Alone Forms: Patient Portal Discharge page Print Language: Thai Activity Restrictions/Additional Instructions: Topical Wound Care Recommendations: Right Lower Leg - Elevate on pillows - Cleanse with NS moist gauze pat dry. Apply barrier cream to periwound. Cover wound bed with Durafiber Ag, dry gauze, ABD pad and gauze wrap. Complete with Kain Wrap. Change every 2-3 days. May use compression stockings over dressing in place of kain wrap when available. Recommend follow up out patient Wound Clinic at [address] [place] [id number] and to call for an appointment at time of discharge. [phone].? When applicable maintain blood glucose levels per Providers order. Patient should continue follow up with his [employer] for Psoriasis treatment. Care Plan Goals: cure of wounds Health Concerns: right leg abscess/cellulitis CHF exacerbation Plan of Treatment: take clindamycin 300 mg 3x a day for 5 days wound care as above follow up with [facility] in 1 week follow up with your material mover as well Low-sodium diet: less than 2000 mg of sodium daily. Weigh yourself daily and call your doctor if your weight goes up by more than 3 lb/day or 5 lb/week. Continue furosemide [Lasix] and Entresto; follow up with your air route traffic controller in 2 weeks Please follow up with your primary care doctor within 1 week. Return to the hospital if you experience recurrent or worsening symptoms. Assessment: See Discharge Summary.
[2025-03-15 11:34] LABS: Glucose, Whole Blood 257 mg/dL (60-115)
--- NOTE | 2025-03-15 11:40 | MHC.CM.PN ---
PT WILL DC HOME TODAY WITH [facility] FOLLOW UP FAMILY TO TRANSPORT
[2025-03-15 11:54] VITALS: BP 146/68; PULSE 64; RESP 16; TEMP 36.2; O2SAT 93
[2025-03-15 14:58] VITALS: BP 106/54; PULSE 69; RESP 16; TEMP 36.3; O2SAT 93
== END 2025-03-15 15:48 | disposition home health service (06) | DRG 383 ==
LOC: HO.ED 21:56 → HO.EDOVER 22:37 → HO.S3 23:52
PROVIDERS: Nurse Practitioner Family; Physician Assistant Medical; Registered Nurse Emergency; Admitting Provider Student in an Organized Health Care Education/Training Program; Emergency Provider Emergency Medicine; PCP Registered Nurse; Visit Provider Family Medicine
DX: L03.115 Cellulitis of right lower limb (principal); J96.01 Acute respiratory failure with hypoxia; I50.23 Acute on chronic systolic (congestive) heart failure; L40.50 Arthropathic psoriasis, unspecified; E11.40 Type 2 diabetes mellitus with diabetic neuropathy, unspecified; E11.65 Type 2 diabetes mellitus with hyperglycemia; B95.62 Methicillin resistant Staphylococcus aureus infection as the cause of diseases classified elsewhere; G47.33 Obstructive sleep apnea (adult) (pediatric); M60.9 Myositis, unspecified; L02.415 Cutaneous abscess of right lower limb; E78.5 Hyperlipidemia, unspecified; N40.0 Benign prostatic hyperplasia without lower urinary tract symptoms; E66.9 Obesity, unspecified; Z68.33 Body mass index [BMI] 33.0-33.9, adult; I11.0 Hypertensive heart disease with heart failure; Z20.822 Contact with and (suspected) exposure to COVID-19; Z79.82 Long term (current) use of aspirin; Z79.84 Long term (current) use of oral hypoglycemic drugs; Z79.899 Other long term (current) drug therapy
CPT/HCPCS: 0241U; 36415; 71046; 73720; 80048; 80053; 80202; 81001; 82550; 82565; 82947; 83605; 83735; 83880; 84484; 85025; 85652; 86140; 87040; 87070; 87077; 87186; 87205; 93005; 93306; 93970; 97162; 99285; A9585; J1650; J1938; J2543; J3370; J3371; Q9957

== ENCOUNTER → 2025-03-11 16:16 | Outpatient (BNV) | payer OTHER, SELFPAY | PROVIDERS: PCP Registered Nurse; Visit Provider Radiology Diagnostic Radiology | DX: R06.00 Dyspnea, unspecified (principal) | CPT/HCPCS: 71046 ==

== ENCOUNTER → 2025-03-11 16:16 | Outpatient (BNV) | payer OTHER, SELFPAY | PROVIDERS: Admitting Provider Student in an Organized Health Care Education/Training Program; Emergency Provider Emergency Medicine; PCP Registered Nurse; Visit Provider Internal Medicine Cardiovascular Disease | DX: R94.31 Abnormal electrocardiogram [ECG] [EKG] (principal); R06.00 Dyspnea, unspecified | CPT/HCPCS: 93010 ==

== ENCOUNTER 2025-03-11 21:47 | Outpatient (BNV) | payer OTHER, SELFPAY | END 2025-03-12 11:31 | PROVIDERS: Admitting Provider Student in an Organized Health Care Education/Training Program; Emergency Provider Emergency Medicine; PCP Registered Nurse; Visit Provider Radiology Diagnostic Radiology | DX: M60.061 Infective myositis, right lower leg (principal); R59.0 Localized enlarged lymph nodes | CPT/HCPCS: 73720; 93970 ==

== ENCOUNTER 2025-03-11 21:47 | Outpatient (BNV) | payer OTHER, SELFPAY | END 2025-03-12 07:00 | PROVIDERS: Admitting Provider Student in an Organized Health Care Education/Training Program; Emergency Provider Emergency Medicine; PCP Registered Nurse; Visit Provider Internal Medicine Cardiovascular Disease | DX: I34.0 Nonrheumatic mitral (valve) insufficiency (principal) | CPT/HCPCS: 93306 ==

== ENCOUNTER → 2025-03-11 21:47 | Outpatient (BNV) | payer OTHER, SELFPAY | PROVIDERS: Admitting Provider Student in an Organized Health Care Education/Training Program; Emergency Provider Emergency Medicine; PCP Registered Nurse; Visit Provider Physician Assistant Surgical | DX: L03.115 Cellulitis of right lower limb (principal) | CPT/HCPCS: 99222 ==

== ENCOUNTER → 2025-03-11 21:47 | Outpatient (BNV) | payer OTHER, SELFPAY | PROVIDERS: Admitting Provider Student in an Organized Health Care Education/Training Program; Emergency Provider Emergency Medicine; PCP Registered Nurse; Visit Provider Nurse Practitioner Family | DX: I50.9 Heart failure, unspecified (principal); L03.115 Cellulitis of right lower limb; J96.01 Acute respiratory failure with hypoxia | CPT/HCPCS: 99223; 99232 ==

== ENCOUNTER 2025-04-28 14:36 | Outpatient (AMB) | payer OTHER, SELFPAY ==
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
--- NOTE | 2025-04-28 14:50 | A.OFFVIS_ITS ---
Intake Visit Reasons: hematuria/hx BPH Intake Note: New patient presents today for initial visit for hematuria Urology Medication:Tamsulosin Blood Thinner:Aspirin Antibiotic Allergies:None PVR:0ml District Superintendent Required: Yes District Superintendent Name: jessy Information Interpreted: non-clinical & clinical Allergies No Known Allergies Allergy (Verified 04/28/25 15:06) HPI Comments Details: 04/28/25 History of Present Illness - The patient is a 54-year-old male presenting with hematuria. - Hematuria was first noted two months ago and persisted for an entire day. - The episode resolved spontaneously without medical intervention. - The patient denies any associated dysuria during the episode. - There is a history of nephrolithiasis, with the last occurrence approximately ten years ago. - The patient is currently on metformin for diabetes mellitus and denies any history of tobacco use. Results - Urinalysis: 3+ protein, 1+ blood Discussion Notes I discussed with the patient the potential causes of hematuria, including nephrolithiasis and benign prostatic hyperplasia, urinary tract cancer. We also reviewed the need for further evaluation of the urinary tract, including imaging and a PSA test. I explained the procedure of cystoscopy and its role in evaluating the bladder. 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 Review of Systems Const All systems reviewed & are unremarkable except as noted in HPI and below Reports no additional complaints Eyes Reports no additional complaints ENT Reports no additional complaints Card Reports no additional complaints Resp Reports no additional complaints GI Reports no additional complaints Reports as per HPI Musc Reports no additional complaints Skin/Breast Reports system reviewed and no additional complaints, except as documented Neuro Reports no additional complaints Psych Reports no additional complaints Endo Reports no additional complaints Faustino/Lymph Reports no additional complaints Aller/Immun Reports no additional complaints Physical Exam Const General: healthy appearing, no acute distress and well developed Orientation/consciousness: patient oriented x3 HEENT Head: Yes normocephalic and Yes atraumatic Eyes Conjunctivae: conjunctivae normal Neck Neck: Yes normal visual inspection Chest Chest palpation & inspection: normal inspection of the chest Resp Effort & Inspection: normal respiratory effort GI Inspection: Yes normal to inspection Neuro General: patient oriented x3 Psych Appearance: grossly normal Affect: normal affect Assessment & Plan Assessment & Plan (1) BPH loc w urin obs/LUTS: Code(s): N40.1 - Benign prostatic hyperplasia with lower urinary tract symptoms Category: Medical Plan Plan - Order PSA testing. - Schedule a CT Urogram - Plan for cystoscopy to directly visualize the bladder and urethra. Orders: Orders CT urogram Today R31.0 - Gross hematuria Creatinine Today R31.0 - Gross hematuria PSA,Total (Free>4and<10) Today Z12.5 - Encounter for screening for malignant neoplasm of prostate Blood Urea Nitrogen Today R31.0 - Gross hematuria Patient Instructions: The patient had an opportunity to ask questions regarding treatment plan. The patient expressed understanding and agreement with the above treatment plan. The patient is aware they should contact our office by phone for worsening of their current condition or the appearance of new symptoms. Compliance is encouraged with any medications and followup testing that is ordered. It is a privilege to be allowed the opportunity to participate in the urologic care of your patient. If you have any questions or concerns regarding treatment for the above conditions please do not hesitate to contact me. The office telephone contact is [phone]. This note is constructed in part using voice recognition software. While every effort has been made to ensure accuracy purchasing associate errors may have been included. Yours sincerely, Malvin Cramer MD Scribe Plan - Not visible on output: Patient was informed and verbally consented to the use of an ambient scribe for clinic note documentation during this visit. Coding Level of Care Code New Pt Level 4 (68273) Diagnoses BPH loc w urin obs/LUTS N40.1
--- OUTSIDE RECORDS SUMMARY | 2025-04-28 15:07 | XMS_ITS | Clinical Summary ---
Author Organization [facility] Address [address] [address] Phone Care Team Providers Care Community Organizer Name Role Phone Marilee Cordero BRANDEN Primary Care Provider [phone] Allergies No known active allergies Medications amLODIPine (NORVASC) 5 MG tablet Take 5 mg by mouth at bed time Active atorvastatin (LIPITOR) 40 MG tablet Take 40 mg by mouth 1 (one) time each day 3 Active gabapentin (NEURONTIN) 100 MG capsule Take 100 mg by mouth 1 (one) time each day Active metFORMIN XR (GLUCOPHAGE-XR) 500 MG 24 hr tablet Take 500 mg by mouth in the morning and 500 mg in the evening. 3 Active tamsulosin (FLOMAX) 0.4 MG 24 hr capsule Take 0.4 mg by mouth 1 (one) time each day 3 Active aspirin (ST JESS) 81 MG EC tablet Take 81 mg by mouth every morning 3 Active Lantus SoloStar 100 UNIT/ML injection Inject 10 Units under the skin at bed time 3 Active furosemide (LASIX) 40 MG tablet Take 1 tablet (40 mg total) by mouth in the morning and 1 tablet (40 mg total) in the evening. Take 80 mg oral BID until swelling goes down, then continue 40 mg oral BID. 180 tablet 3 4 Active Empagliflozin (Jardiance) 10 MG tablet Take 10 mg by mouth 1 (one) time each day in the morning 30 tablet 3 4 04/03/20 25 Active Problems Problem Noted Date Diagnosed Date Obese class I 03/26/2025 Proteinuria 09/01/2024 Overview (03/26/2025): Followed by [facility] - Dr. James Hogan 10mg daily Congestive heart failure 11/26/2023 Overview (04/03/2024): [facility]: Nuclear stress test: Negative ECG portion of the stress test. Myocardial perfusion imaging is normal with no evidence or fixed or reversible perfusion defects. Moderately reduced global LV function? with resting left ventricular EF of 33%, and post stress LVEF 36%. LV size moderately dilated. No evidence of transient ischemic dilation. Hospitalization for CHF exacerbation: Oct 2023 at [facility] Last Assessment & Plan: - Reviewed condition and concerning signs/symptoms - Cont med regimen below: Aspirin 81mg daily Atorvastatin 40mg nightly Lisinopril-hydrochlorothiazide 20-25mg daily Furosemide 40mg BID Peripheral neuropathy 08/24/2022 Overview (03/26/2025): Sciatica Pain mgmt 03/17/23: Patient is not able to walk and stand on heels and tip toes due to bilateral foot pain due to chronic diabetic foot ulcers, numbness and psoriatic arthritis poor candidate for therapeutic injections given significantly elevated A1C >11. Benign prostatic hyperplasia 02/26/2015 Overview (04/03/2024): Continues with tamsulosin 0.4mg daily Reports symptoms well controlled Mixed anxiety and depressive disorder 03/13/2013 Hyperlipidemia 01/25/2013 Allergic rhinitis 08/14/2012 Asthma 08/14/2012 Gastroesophageal reflux disease 08/14/2012 Type 2 diabetes mellitus 06/04/2012 Psoriatic arthritis 06/04/2012 Overview (03/26/2025): Followed by [facility] Rheum - Dr. Garcia Med therapy: DMARD, Taltz Previous tx: methotrexate and Enbrel (hx of failed Humira tx in Rheum note 02/04/21). Plan to hold methotrexate with hx cardiac conditions Obstructive sleep apnea syndrome 06/04/2012 Overview (03/26/2025): Following with [facility] - Dr. Balbir Don Cont w/ CPAP, need updated titration report (home sleep study ordered Jul 2024 per specialist) Immunizations Immunization Administration Dates Next Due Hep A, 2 Dose 09/27/2005,03/24/2005 Hep B, Adolescent or Pediatric 09/27/2005,2004,03/24/2005 Influenza (IM) Preservative Free 08/30/2024 Influenza Split 07/09/2013,08/14/2012 Influenza, Quadrivalent, Preservative Free [...] 50+ Ye ars (3 of 3 - PCV20 or PCV21) 08/23/2018 06/28/2018, 09/30/2008 Colorectal [...] 08/30/2024, , 10/17/2022, Additional history exists Insurance [facility] ([id number]) [facility] ([id number]) Care Teams Community Organizer Relationship Specialty Start Date End Date Marilee Cordero FNP [address] [place] [id number] PCP - General 01/08/24
--- OUTSIDE RECORDS SUMMARY | 2025-04-28 15:07 | XMS_ITS | Encounter Summary ---
Author Organization [employer] Address [address] [facility] 7t [place] [address] Care Team Providers Care Truckload Owner Operator Name Role Phone Marilee Cordero BRANDEN Primary Care Provider [phone] Cristo Garcia MD Unavailable Doris Canedlario Unavailable [phone] Yoselyn Lyons Unavailable Unavailable Balbir Don Unavailable Encounter Details Date Type Department Care Team (Late st Contact Info) Description 08/11/[address] [facility] [address] [place] [address] Gavino Lacey, DMD [address] [place] [address] Social History Tobacco Use Types Packs/Day Years [...] Care Team (Late st Contact Info) Description 07/04/2025 8:30 AM EDT Office Visit [facility] [address] [place] [address] Marilee Cordero FNP [address] [place] [address] documented as of this encounter Visit Diagnoses Not on filedocumented in this encounter Additional Health Concerns Assessment Noted Time PHQ-9 Depression Total Score: 1 10/17/20 22 10:05 AM EST documented as of this encounter Care Teams Truckload Owner Operator Relationship Specialty Start Date End Date Marilee Cordero FNP [address] [place] [address] PCP - General Family Medicine 03/23/23 Cristo Garcia MD [address] [place] [address] [place] [address] Rheumatology 09/01/24 Doris Candelario [address] [place] [address] Cardiology 09/01/24 Yoselyn Lyons [address] [place] [address] Ophthalmology 09/01/[address] [facility] [address] [place] [address] Sleep Medicine 09/01/24 Dr. Ramirez 100 [facility] [address] [place] [address] Nephrology 09/01/24 Noman LEWISA 03/18/25 documented as of this encounter
--- OUTSIDE RECORDS SUMMARY | 2025-04-28 15:07 | XMS_ITS | Clinical Summary ---
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 Phone Unavailable Primary Care Provider [...] - 02/19/2025 5:05 PM EDT Hospital Encounter [facility] [address] [place] [address] Saavedra, TinDO Yasmin Chang Carlos M, MD Kokosadze, Estate, MD Rasul, Yar M, MD Edema, unspecified type (Primary Dx); Acute midline low back pain with right-sided sciatica; Proteinuria, unspecified type; Respiratory failure, unspecified chronicity, unspecified whether with hypoxia or hypercapnia ([facility] V24, [facility] V28); Acute pulmonary edema ([facility] V24, [facility] V28); Hypoxia Discharge Disposition: Home or Self Care from Last 3 Months Surgical History Surgery Date Site/Laterality Comments OTHER SURGICAL HISTORY 07/03/2002 PROCEDURE: HISTORY OTHER; COMMENT: nasal septal reconstruction with laser turbinectomy Medical History Medical History Date Comments HTN (hypertension) 06/04/2012 DX:HTN (hyper tension) DM2 (diabetes mellitus, type 2) ([facility] V24, [facility] V28) 06/04/2012 DX:DM2 (diabetes mellitus, t ype 2) ([facility]) Obstructive sleep apnea 06/04/2012 DX:Obstr uctive sleep apnea Psoriatic arthritis ([facility] V24, [facility] V28) 06/04/2012 DX:Psoriatic arthritis ([facility]) Hyperlipidemia 06/04/2012 DX:Hyperlipidemi a; COMMENT: IMO update [...] Heart attack Other cousins with fa [place] CA's 40's Asthma Sister Relation Name Status Comments [...] 58 02/19/2025 11:21 AM EDT Temperature 36.3 C (97.4 F) 02/19/2025 11:21 AM EDT Respiratory Rate 16 02/19/2025 11:21 AM EDT [...] Routine 02/17/2025 11 :53 AM EDT HEPARIN AND LOW MOLECULAR WEIGHT ANTI XA LEVEL Timed 02/17/2025 9:57 AM EDT B-TYPE NATRIURETIC PEPTIDE Routine 02/17/2025 9:56 AM EDT POCT GLUCOSE BLOOD Routine 02/17/2025 7: 42 AM EDT HEPARIN AND LOW MOLECULAR WEIGHT ANTI XA LEVEL Timed 02/17/2025 4:07 AM EDT CBC WITH AUTO DIFFERENTIAL Routine 02/17/2025 4:07 AM EDT CBC AND DIFFERENTIAL Routine 02/17/2025 4:07 AM EDT BASIC METABOLIC PANEL Routine 02/17/2025 4:07 AM EDT HEPARIN AND LOW MOLECULAR WEIGHT ANTI XA LEVEL Timed 02/17/2025 2:01 AM EDT HEPARIN AND LOW MOLECULAR WEIGHT ANTI XA LEVEL Timed 02/16/2025 8:13 PM EDT POCT GLUCOSE BLOOD Routine 02/16/2025 7: 44 PM EDT POCT GLUCOSE BLOOD Routine 02/16/2025 3: 49 PM EDT [place] QUANTITATIVE FREE LIGHT CHAINS Routine 02/16/2025 2:01 PM EDT [place] PROTEIN ELECTROPHORETIC FRACTIONATION & QUANTITATION SERUM Routine [...] Routine 02/16/2025 12 :16 PM EDT HEPARIN AND LOW MOLECULAR WEIGHT ANTI XA LEVEL Timed 02/16/2025 8:53 AM EDT POCT GLUCOSE BLOOD Routine 02/16/2025 8: 37 AM EDT CBC WITH AUTO DIFFERENTIAL Routine 02/16/2025 3:05 AM EDT COMPLETE BLOOD COUNT Timed 02/16/2025 3:05 AM EDT CBC AND DIFFERENTIAL Routine 02/16/2025 3:05 AM EDT MAGNESIUM Routine 02/16/2025 3:05 AM EDT BASIC METABOLIC PANEL Routine 02/16/2025 3:05 AM EDT HEPARIN AND LOW MOLECULAR WEIGHT ANTI XA LEVEL Timed 02/16/2025 3:05 AM EDT POCT GLUCOSE BLOOD Routine 02/15/2025 9: 43 PM EDT HEPARIN AND LOW MOLECULAR WEIGHT ANTI XA LEVEL STAT Add-on 02/15/2025 7:48 PM EDT ACTIVATED [...] of18 resultswithin the time period is included. Glucose POCT 260(H) 70 - 100 mg/dL 02/19/2025 3:18 PM EDT [facility] Blood Capillary blood specimen / Unknown 02/19/2025 3:18 PM EDT 02/19/2025 3:19 PM EDT us Torres Sanchez MD LAB POINT OF CARE TE ST DOCKED DEVICE UNSOLICITED RESULTS Final Result [facility] [address] [place] [address], [place] [phone] * (ABNORMAL) CBC auto differential (02/19/2025 6:01 AM EDT) Only the most recent of5 resultswithin the time period is included. [facility] WBC 8.8 4.8 - 10.8 K/mcL LAB HEMETOLOGY METHOD 02/19/2025 6:48 AM EDT [facility] RBC 4.00(L) 4.50 - 5.50 M/mcL LAB HEMETOLOGY METHOD 02/19/2025 6:[facility] Hemoglobin 11.2(L) 13.5 - 17.5 g/dL LAB HEMETOLOGY METHOD 02/19/2025 6:48 AM EDT [facility] Hematocrit 34.1(L) 42.0 - 54.0 % LAB HEMETOLOGY METHOD 02/19/2025 6:48 AM EDT [facility] MCV 85.0 79.0 - 98.0 FL LAB HEMETOLOGY METHOD 02/19/2025 6:48 AM EDT [facility] MCH 27.9 27.0 - 32.0 pcg LAB HEMETOLOGY METHOD 02/19/2025 6:48 AM EDT [facility] MCHC 32.8 32.0 - 37.0 g/dL LAB HEMETOLOGY METHOD 02/19/2025 6:48 [facility] RDW 12.8 11.0 - 15.0 % LAB HEMETOLOGY METHOD 02/19/2025 6:48 AM [facility] Platelets 281 130 - 400 K/mcL LAB HEMETOLOGY METHOD 02/19/2025 6:48 AM [facility] MPV 9.6 7.0 - 11.0 FL LAB HEMETOLOGY METHOD 02/19/2025 6:48 AM [facility] NRBC 0.0 <1.0 % LAB HEMETOLOGY METHOD 02/19/2025 6:48 AM [facility] NRBC Absolute 0.00 <0.10 K/mcL LAB HEMETOLOGY METHOD 02/19/2025 6:48 AM [facility] Neutrophils Relative 79.4 % LAB HEMETOLOGY METHOD 02/19/2025 6:48 AM [facility] Lymphocytes Relative 7.8 % LAB HEMETOLOGY METHOD 02/19/2025 6:48 AM [facility] Monocytes Relative 9.1 % LAB HEMETOLOGY METHOD 02/19/2025 6:48 AM [facility] Eosinophils Relative 2.9 % LAB HEMETOLOGY METHOD 02/19/2025 6:48 AM [facility] Basophils Relative 0.2 % LAB HEMETOLOGY METHOD 02/19/2025 6:48 AM [facility] Immature Granulocytes Relative 0.6 % LAB HEMETOLOGY METHOD 02/19/2025 6:48 AM [facility] Neutrophils Absolute 6.96 1.50 - 7.00 K/mcL LAB HEMETOLOGY METHOD 02/19/2025 6:48 AM [facility] Lymphocytes Absolute 0.68(L) 1.00 - 5.00 K/mcL LAB HEMETOLOGY METHOD 02/19/2025 6:48 AM [facility] Monocytes Absolute 0.80 0.20 - 1.00 K/mcL LAB HEMETOLOGY METHOD 02/19/2025 6:48 AM [facility] Eosinophils Absolute 0.25 0.00 - 0.50 K/[facility] LAB HEMETOLOGY METHOD 02/19/2025 6:48 AM EDT [facility] Basophils Absolute 0.02 0.00 - 0.20 K/[facility] LAB HEMETOLOGY METHOD 02/19/2025 6:48 AM EDT [facility] Immature Granulocytes Absolute 0.05(H) 0.00 - 0.03 K/[facility] LAB HEMETOLOGY METHOD 02/19/2025 6:48 AM EDT [facility] Blood Venous blood specimen / Unknown Venipuncture / Unknown 02/19/2025 6:01 AM EDT 02/19/2025 6:18 AM EDT us Torres Sanchez MD LAB BLOOD ORDERABLES Final Resul t [facility] [address] [place] [address], [place] [phone] * (ABNORMAL) Basic metabolic panel (02/19/2025 6:01 AM EDT) Only the most recent of5 resultswithin the time period is included. Sodium 136 133 - 145 mmol/L LAB CHEMISTRY METHOD 02/19/2025 7:13 AM [facility] Potassium 3.6 3.5 - 5.5 mmol/L LAB CHEMISTRY METHOD 02/19/2025 7:13 AM [facility] Chloride 98 96 - 110 mmol/L LAB CHEMISTRY METHOD 02/19/2025 7:13 AM [facility] CO2 35(H) 21 - 32 mmol/L LAB CHEMISTRY METHOD 02/19/2025 7:13 AM [facility] Anion Gap 3 3 - 11 LAB CHEMISTRY METHOD 02/19/2025 7:13 AM [facility] Glucose 258(H) 70 - 100 mg/dL LAB CHEMISTRY METHOD 02/19/2025 7:13 AM EDT [facility] BUN 19 5 - 25 mg/dL LAB CHEMISTRY METHOD 02/19/2025 7:13 AM EDT [facility] Creatinine 1.08 0.70 - 1.30 mg/dL LAB CHEMISTRY METHOD 02/19/2025 7:13 AM EDT [facility] eGFR 82 >=60 mL/min/1. 73m2 LAB CHEMISTRY METHOD 02/19/2025 7:13 AM EDT [facility] Comment:Calculation based on the Chronic Kidney Disease Epidemiology Collaboration (CKD-EPI) equation refit without adjustment for race. BUN/Creatinine Ratio 17.6 LAB CHEMISTRY METHOD 02/19/2025 7:13 AM EDT [facility] Calcium 8.2(L) 8.5 - 10.5 mg/dL LAB CHEMISTRY METHOD 02/19/2025 7:13 AM [facility] Blood Venous blood specimen / Unknown Venipuncture / Unknown 02/19/2025 6:01 AM EDT 02/19/2025 6:17 AM EDT us Torres Sanchez MD LAB BLOOD ORDERABLES Final Resul t Performing Organization Address City/[facility]/ZIP Co de Phone Number [facility] [address] [place] [address], * (ABNORMAL) MRSA molecular study (02/18/2025 10:18 AM EDT) MRSA Screen PCR Detected (A) Not Detected LAB MICROBIOLOGY METHOD 02/18/2025 11:35 AM EDT [facility] Swab Both anterior nares / Unknown Non-blood Collection / Unknown 02/18/2025 10:18 AM EDT 02/18/2025 10:22 AM EDT us Torres Sanchez MD LAB MICROBIOLOGY - GENERAL ORDER HAN Final Result [facility] [address] [place] [address], [place] [phone] * (ABNORMAL) TRANSTHORACIC ECHOCARDIOGRAM (TTE) COMPLETE W/ [...] 3.8 cm2 CV PACS Left Atrium Minor [place] 5.8 cm CV PACS Left Atrium Major [place] 6.3 cm CV PACS LA Area Sys [...] Modality Ultrasound Narrative 02/18/2025 10:19 AM EDT Left ventricle cavity size is normal. Left ventricle mild hypertrophy.No regional LV wall motion abnormalities noted.Left ventricular systolic function is low normal with an ejection fraction of 50-55%.Left Ventricle: There is Grade II (moderate) diastolic dysfunction. Abnormal strain with relatively preserved strain pattern at apex. Left ventricle moderate concentric hypertrophy. Right ventricle cavity is mildly enlarged. Right ventricular systolic function is normal. Tricuspid Valve: Estimated RA pressure is 8 mmHg. The RVSP is estimated at 43 mmHg. The left atrium is moderately dilated. No hemodynamically significant valve disease. Given the LVH, and relatively low voltage for [...] by: Essence Balbuena MD on 02/18/2025 01:35:32 us Torres Sanchez MD IMG CT PROCEDURES Final Result * (ABNORMAL) Hemoglobin and hematocrit (02/17/2025 5:45 PM EDT) Hemoglobin 12.1(L) 13.5 - 17.5 g/dL LAB HEMETOLOGY METHOD 02/17/2025 6:15 PM EDT [facility] Hematocrit 36.9(L) 42.0 - 54.0 % LAB HEMETOLOGY METHOD 02/17/2025 6:15 PM EDT [facility] Blood Venous blood specimen / Unknown Venipuncture / Unknown 02/17/2025 5:45 PM EDT 02/17/2025 5:56 PM EDT us Torres Sanchez MD LAB BLOOD ORDERABLES Final Resul t [facility] [address] [place] [address], [place] [phone] * (ABNORMAL) Prothrombin time with INR (02/17/2025 5:45 PM EDT) Only the most recent of2 resultswithin the time period is included. Protime 16.7(H) 10.6 - 13.9 sec LAB COAGULATION METHOD 02/17/2025 6:05 PM EDT [facility] INR 1.3 LAB COAGULATION METHOD 02/17/2025 6:05 PM EDT [facility] Blood Venous blood specimen / Unknown Venipuncture / Unknown 02/17/2025 5:45 PM EDT 02/17/2025 5:56 PM EDT Torres Sanchez MD LAB BLOOD ORDERABLES Final Resul t [facility] [address] [place] [address], [place] [phone] * (ABNORMAL) Protein and creatinine with ratio, urine (02/17/2025 12:45 PM EDT) Protein, Urine 141 mg/dL LAB CHEMISTRY METHOD 02/18/2025 7:21 AM EDT [facility] Prot/Creat, Ur 6.41(H) <=0.20 mg/mg creat LAB CHEMISTRY METHOD 02/18/2025 7:21 AM EDT [facility] Creatinine, Urine 22.0 mg/dL LAB CHEMISTRY METHOD 02/18/2025 7:21 AM EDT [facility] Urine Urine specimen from urethra / Unknown Non-blood Collection / Unknown 02/17/2025 12:45 PM EDT 02/18/2025 7:02 AM EDT Ish David MD LAB URINE ORDERABLES Final Res ult Performing Organization Address City/[facility]/ZIP Co de Phone Number [facility] [address] [place] [address], [place] [phone] * Protein, urine, random (02/17/2025 12:45 PM EDT) Protein, Urine 144 mg/dL LAB CHEMISTRY METHOD 02/17/2025 2:48 PM EDT [facility] Urine Urine specimen obtained by clean catch procedure / Unknown Non-blood Collection / Unknown 02/17/2025 12:45 PM EDT 02/17/2025 1:36 PM EDT Felicia Morrell NP LAB URINE ORDERABLES Final Res ult Performing Organization Address [facility]/ZIP Co de Phone Number [facility] [address] [place] [address], [place] [phone] * Yellow urine no additive (02/17/2025 12:42 PM EDT) Extra Tube Hold for add-ons. 02/17/2025 3:01 PM EDT [facility] Comment:Auto resulted. Urine Urine specimen obtained by clean catch procedure / Unknown 02/17/2025 12:42 PM EDT 02/17/2025 1:38 PM EDT Torres Sanchez MD LAB URINE ORDERABLES Final Resul t Performing Organization Address [facility] de Phone Number [facility] [address] [place] [address], [place] [phone] * (ABNORMAL) Anti-Xa - Every 6 Hours (02/17/2025 9:57 AM EDT) Only the most recent of7 resultswithin the time period is included. Heparin Anti-Xa <0.04(L) 0.30 - 0.70 I Unit/mL LAB COAGULATION METHOD 02/17/2025 10:28 AM EDT [facility] Blood Venous blood specimen / Unknown Venipuncture / Unknown 02/17/2025 9:57 AM EDT 02/17/2025 10:04 AM EDT Narrative [facility] - 02/17/2025 10:28 AM EDT Therapeutic range listed is for Unfractionated Heparin. LMW Heparin therapeutic range: 0.50-1.20 IU/mL Elizabeth Lora MD LAB BLOOD ORDERABLES Final R esult Performing Organization Address [facility]/ZIP Co de Phone Number [facility] [address] [place] [address], [place] [phone] * (ABNORMAL) B-type natriuretic peptide (02/17/2025 9:56 AM EDT) BNP 656(H) <=100 pcg/mL LAB CHEMISTRY METHOD 02/17/2025 10:42 AM EDT [facility] Blood Venous blood specimen / Unknown Venipuncture / Unknown 02/17/2025 9:56 AM EDT 02/17/2025 10:04 AM EDT us Torres Sanchez MD LAB BLOOD ORDERABLES Final Resul t [facility] [address] [place] [address], [place] [phone] * (ABNORMAL) [place]-lambda free light chains, quantitative (02/16/2025 2:01 PM EDT) [place] Free Light Chain 6.10(H) 0.33 - 1.94 mg/dL 02/19/2025 10:46 AM EDT [facility] Lambda Free Light Chain 3.64(H) 0.57 - 2.63 mg/dL 02/19/2025 10:46 AM EDT [facility] [place]/Lambda FLC Ratio 1.68(H) 0.26 - 1.65 02/19/2025 10:46 AM EDT [facility] Comment: Test performed at [facility], [address], [place] [address] Sarah Gregg MD, PhD - User Interface Artist Blood Venous blood specimen / Unknown Venipuncture / Unknown 02/16/2025 2:01 PM EDT 02/16/2025 2:05 PM EDT us Ish David MD LAB BLOOD ORDERABLES Final Res ult [facility] [address] [place] [address] * Hepatitis C antibody (02/16/2025 2:00 PM EDT) Hepatitis C Antibody Negative Negative LAB CHEMISTRY METHOD 02/16/2025 5:37 PM EDT [facility] Blood Venous blood specimen / Unknown Venipuncture / Unknown 02/16/2025 2:00 PM EDT 02/16/2025 2:05 PM EDT Ish David MD LAB BLOOD ORDERABLES Final Res ult [facility] [address] [place] [address], [place] [phone] * Hepatitis B surface antigen with reflex to confirmation (02/16/2025 2:00 PM EDT) Pathologist [facility] Hepatitis B Surface Ag Negative Negative LAB CHEMISTRY METHOD 02/16/2025 5:34 PM EDT [facility] Blood Venous blood specimen / Unknown Venipuncture / Unknown 02/16/2025 2:00 PM EDT 02/16/2025 2:05 PM EDT Narrative [facility] - 02/16/2025 5:34 PM EDT Over the counter supplements containing high doses of biotin may interfere with this assay. If interference is suspected, patients shoud be retested after refraining from biotin supplements for 72 hours. Ish David MD LAB BLOOD ORDERABLES Final Res ult [facility] [address] [place] [address], [place] [phone] * PATHOLOGIST REVIEW PROTEIN ELECTROPHORESIS (02/16/2025 2:00 PM EDT) Pathologist Interpretation 02/18/2025 5:34 PM EDT [facility] Blood Venous blood specimen / Unknown Venipuncture / Unknown 02/16/2025 2:00 PM EDT 02/16/2025 2:05 PM EDT us Ish David MD LAB BLOOD ORDERABLES Final Res ult Performing Organization Address [facility]/ZIP Co de Phone Number [facility] [address] [place] [address], [place] [phone] * Anti-neutrophilic cytoplasmic antibody (02/16/2025 2:00 PM EDT) Myeloperoxidase Ab Negative Negative LAB CHEMISTRY METHOD 02/19/2025 12:50 PM EDT [facility] Myeloperoxidase Ab, Quant 2 <=20 units LAB CHEMISTRY METHOD 02/19/2025 12:50 PM EDT [facility] Proteinase-3 Ab Negative Negative LAB CHEMISTRY METHOD 02/19/2025 12:50 PM EDT [facility] Proteinase-3 Ab Quant 3 <=20 units LAB CHEMISTRY METHOD 02/19/2025 12:50 PM EDT [facility] Blood Venous blood specimen / Unknown Venipuncture / Unknown 02/16/2025 2:00 PM EDT 02/16/2025 2:05 PM EDT us Ish David MD LAB BLOOD ORDERABLES Final Res ult Performing Organization Address [facility]/ZIP Co de Phone Number [facility] [address] [place] [address], [place] [phone] * C3 complement (02/16/2025 2:00 PM EDT) C3 Complement 158 88 - 201 mg/dL LAB CHEMISTRY METHOD 02/16/2025 2:36 PM EDT [facility] Blood Venous blood specimen / Unknown Venipuncture / Unknown 02/16/2025 2:00 PM EDT 02/16/2025 2:05 PM EDT Ish David MD LAB BLOOD ORDERABLES Final Res ult [facility] [address] [place] [address], [place] [phone] * C4 complement (02/16/2025 2:00 PM EDT) C4 Complement 28 16 - 47 mg/dL LAB CHEMISTRY METHOD 02/16/2025 2:36 PM EDT [facility] Blood Venous blood specimen / Unknown Venipuncture / Unknown 02/16/2025 2:00 PM EDT 02/16/2025 2:05 PM EDT us Ish David MD LAB BLOOD ORDERABLES Final Res ult Performing Organization Address [facility]/ZIP Co de Phone Number [facility] [address] [place] [address], [place] [phone] * (ABNORMAL) Protein electrophoresis, serum (02/16/2025 2:00 PM EDT) Pathologist [facility] Total Protein 5.8(L) 6.0 - 8.0 g/dL LAB CHEMISTRY METHOD 02/18/2025 5:34 PM EDT [facility] Albumin, Serum 2.4(L) 2.9 - 4.1 g/dL LAB CHEMISTRY METHOD 02/18/2025 5:34 PM EDT [facility] Alpha 1 Globulin (g/dL) 0.5 0.1 - 0.5 g/dL LAB CHEMISTRY METHOD 02/18/2025 5:34 PM EDT [facility] Alpha 2 Globulin (g/dL) 1.1 0.7 - 1.5 g/dL LAB CHEMISTRY METHOD 02/18/2025 5:34 PM EDT [facility] Beta (g/dL) 1.0 0.7 - 1.5 g/dL LAB CHEMISTRY METHOD 02/18/2025 5:34 PM EDT [facility] Gamma Globulin (g/dL) 0.7 0.7 - 1.9 g/dL LAB CHEMISTRY METHOD 02/18/2025 5:34 PM EDT [facility] SPEP Interpretation No M-Abdiaziz seen. Hypoalbuminem ia, suggestive of malnutrition, decreased hepatic synthesis or renal/GI loss LAB CHEMISTRY METHOD 02/18/2025 5:34 PM EDT [facility] Blood Venous blood specimen / Unknown Venipuncture / Unknown 02/16/2025 2:00 PM EDT 02/16/2025 2:05 PM EDT us Ish David MD LAB BLOOD ORDERABLES Final Res ult Performing Organization Address [facility]/ZIP Co de Phone Number [facility] [address] [place] [address], [place] [phone] * (ABNORMAL) Protein, total (02/16/2025 2:00 PM EDT) Total Protein 5.8(L) 6.0 - 8.0 g/dL LAB CHEMISTRY METHOD 02/16/2025 2:37 PM EDT [facility] Blood Venous blood specimen / Unknown Venipuncture / Unknown 02/16/2025 2:00 PM EDT 02/16/2025 2:05 PM EDT us Ish David MD LAB BLOOD ORDERABLES Final Res ult Performing Organization Address [facility]/ZIP Co de Phone Number [facility] [address] [place] [address], [place] [phone] * MR Angio Abdomen wo and w [...] by: Poppy Felix MD on 02/16/2025 15:27:47 [facility] VEE IMG MRI PROCEDURES Final Res ult * (ABNORMAL) CBC - Every 3 Days (02/16/2025 3:05 AM EDT) WBC 12.3(H) 4.8 - 10.8 K/mcL LAB HEMETOLOGY METHOD 02/16/2025 3:15 AM EDT [facility] RBC 3.80(L) 4.50 - 5.50 M/mcL LAB HEMETOLOGY METHOD 02/16/2025 3:15 AM EDT [facility] Hemoglobin 11.0(L) 13.5 - 17.5 g/dL LAB HEMETOLOGY METHOD 02/16/2025 3:15 AM EDT [facility] Hematocrit 32.3(L) 42.0 - 54.0 % LAB HEMETOLOGY METHOD 02/16/2025 3:15 AM EDT [facility] MCV 84.1 79.0 - 98.0 FL LAB HEMETOLOGY METHOD 02/16/2025 3:15 AM EDT [facility] MCH 28.6 27.0 - 32.0 pcg LAB HEMETOLOGY METHOD 02/16/2025 3:15 AM EDT [facility] MCHC 34.1 32.0 - 37.0 g/dL LAB HEMETOLOGY METHOD 02/16/2025 3:15 AM EDT [facility] RDW 12.8 11.0 - 15.0 % LAB HEMETOLOGY METHOD 02/16/2025 3:15 AM EDT [facility] Platelets 239 130 - 400 K/mcL LAB HEMETOLOGY METHOD 02/16/2025 3:15 AM EDT [facility] MPV 9.6 7.0 - 11.0 FL LAB HEMETOLOGY METHOD 02/16/2025 3:15 AM T [facility] NRBC 0.0 <1.0 % LAB HEMETOLOGY METHOD 02/16/2025 3:15 AM EDT [facility] NRBC Absolute 0.00 <0.10 K/mcL LAB HEMETOLOGY METHOD 02/16/2025 3:15 AM T [facility] Blood Venous blood specimen / Unknown Venipuncture / Unknown 02/16/2025 3:05 AM EDT 02/16/2025 3:11 AM EDT us Sunitha DORSEY LAB BLOOD ORDERABLES Final Resul t [facility] [address] [place] [address], * Magnesium (02/16/2025 3:05 AM EDT) Only the most recent of2 resultswithin the time period is included. [facility] Magnesium 2.2 1.9 - 2.6 mg/dL LAB CHEMISTRY METHOD 02/16/2025 3:46 AM EDT [facility] Blood Venous blood specimen / Unknown Venipuncture / Unknown 02/16/2025 3:05 AM EDT 02/16/2025 3:11 AM EDT Neo Hoffman MD LAB BLOOD ORDERABLES Final Re sult Performing Organization Address [facility]/ZIP Co de Phone Number [facility] [address] [place] [address], * Activated Partial Thromboplastin Time - STAT (02/15/2025 7:48 PM EDT) [facility] aPTT 30.4 24.1 - 39.3 sec LAB COAGULATION METHOD 02/15/2025 9:32 PM EDT [facility] Blood Venous blood specimen / Unknown Venipuncture / Unknown 02/15/2025 7:48 PM EDT 02/15/2025 8:05 PM EDT Sunitha DORSEY LAB BLOOD ORDERABLES Final Resul t [facility] [address] [place] [address], [place] [phone] * (ABNORMAL) D-Dimer (02/15/2025 7:48 PM EDT) [facility] D-Dimer, Quant (D-DU) 525(H) <=230 ng/mL DDU LAB COAGULATION METHOD 02/15/2025 8:23 PM EDT [facility] Blood Venous blood specimen / Unknown Venipuncture / Unknown 02/15/2025 7:48 PM EDT 02/15/2025 8:05 PM EDT Narrative [facility] - 02/15/2025 8:23 PM EDT D-Dimer <230 ng/mL (D-Dimer units) is the threshold for exclusion of DVT/PE. D-Dimer may be elevated in: Critically ill, severely infected, trauma patients, DIC, acute CVA, acute CA, unstable angina, AF, old age, , and smoking. D-Dimer may be decreased with: Initiation of heparin therapy and oral anticoagulants. us Felicia Morrell [facility] BLOOD ORDERABLES Final Res ult [facility] [address] [place] [address], [place] [phone] * CT Angio Chest/Abdomen/Pelvis wo and/or w [...] retroperitoneal and bilateral inguinal lymphadenopathy, [place]pecific[place] ([id number]) -------- FINAL REPORT -------- Dictated By: Parris Gardner Dictated Date: 02/15/2025 14:47 ET Assigned Physician: Parris Gardner Reviewed and Electronically Signed By: Parris Gardner Signed Date: 02/15/2025 15:01 ET Workstation ID: [id number] Transcribed By: Self Edit Transcribed Date: 02/15/2025 [...] the thorax were obtained. DLP: 2436.00 mGy/cm [email or web address] VCT Iterative reconstruction technique Findings: Precontrast images [...] throughthe thorax were obtained. DLP: 2436.00 mGy/cm [email or web address] VCT Iterative reconstruction technique Findings: Precontrast images [...] mediastinal, pelvic retroperitoneal and bilateral inguinallymphadenopathy, nonspecific. Digital Lifeboatliz DORSEY ([id number]) -------- FINAL REPORT -------- Dictated By: Parris Gardner Dictated Date: 02/15/2025 14:47 ET Assigned Physician: Parris Gardner Reviewed and Electronically Signed By: Parris Gardner Signed Date: 02/15/2025 15:01 ET Workstation ID: [id number] Transcribed By: Self Edit Transcribed Date: 02/15/2025 14:47 ET us Zaida Saavedra DO IMG CT PROCEDURES Final R esult * XR Lumbar Spine 2-3 Views (02/15/2025 1:53 PM EDT) Anatomical Region Laterality Modality Spine, L-spine Radiographic Aleida ging 02/15/2025 1:55 PM EDT Impressions 02/15/2025 1:56 PM EDT Impression: No evidence of lumbar spine fracture or subluxation. Telerad PA ([id number]) -------- FINAL REPORT -------- Dictated By: Parris Gardner Dictated Date: 02/15/2025 13:55 ET Assigned Physician: Parris Gardner Reviewed and Electronically Signed By: Parris Gardner Signed Date: 02/15/2025 13:56 ET Workstation ID: [id number] Transcribed By: Self Edit Transcribed Date: 02/15/2025 [...] lumbar spine fracture or subluxation. Telerad PA ([id number]) -------- FINAL REPORT -------- Dictated By: Parris Gardner Dictated Date: 02/15/2025 13:55 ET Assigned Physician: Parris Gardner Reviewed and Electronically Signed By: Parris Gardner Signed Date: 02/15/2025 13:56 ET Workstation ID: [id number] Transcribed By: Self Edit Transcribed Date: 02/15/2025 13:55 ET us Zaida Saavedra DO IMG XR PROCEDURES Final R esult * XR Chest 2 Views (02/15/2025 1:53 PM EDT) Anatomical Region Laterality Modality Body Radiographic Aleida ging 02/15/2025 1:57 PM EDT Impressions 02/15/2025 1:58 PM EDT Impression: Congestive heart failure. Telerad WILLIAN ([id number]) -------- FINAL REPORT -------- Dictated By: Parris Gardner Dictated Date: 02/15/2025 13:57 ET Assigned Physician: Parris Gardner Reviewed and Electronically Signed By: Parris Gardner Signed Date: 02/15/2025 13:58 ET Workstation ID: [id number] Transcribed By: Self Edit Transcribed Date: 02/15/2025 [...] IMPRESSION: Impression: Congestive heart failure. Teleliz DORSEY ([id number]) -------- FINAL REPORT -------- Dictated By: Parris Gardner Dictated Date: 02/15/2025 13:57 ET Assigned Physician: Parris Gardner Reviewed and Electronically Signed By: Parris Gardner Signed Date: 02/15/2025 13:58 ET Workstation ID: [id number] Transcribed By: Self Edit Transcribed Date: 02/15/2025 13:57 ET us Zaida Saavedra DO IMG XR PROCEDURES Final R esult * Vascular US Duplex Lower Extremity Venous Right (02/15/2025 1:39 PM EDT) Anatomical Region Laterality Modality Vascular, Abdomen Ultrasound 02/15/2025 1:41 PM EDT Impressions 02/15/2025 1:42 PM EDT Impression: No evidence of deep vein thrombosis in the right femoral-popliteal venous segment. Telerad PA ([id number]) -------- FINAL REPORT -------- Dictated By: Parris Gardner Dictated Date: 02/15/2025 13:41 ET Assigned Physician: Parris Gardner Reviewed and Electronically Signed By: Parris Gardner Signed Date: 02/15/2025 13:42 ET Workstation ID: [id number] Transcribed By: Self Edit Transcribed Date: 02/15/2025 [...] thrombosis in the right femoral-popliteal venoussegment. Telerad PA ([id number]) -------- FINAL REPORT -------- Dictated By: Parris Gardner Dictated Date: 02/15/2025 13:41 ET Assigned Physician: Parris Gardner Reviewed and Electronically Signed By: Parris Gardner Signed Date: 02/15/2025 13:42 ET Workstation ID: [id number] Transcribed By: Self Edit Transcribed Date: 02/15/2025 13:41 ET us Zaida griddig Leonard Saavedra DO CV VASCULAR PROCEDURES Fi nal Result * Lactate (02/15/2025 1:00 PM EDT) Lactate 1.6 0.4 - 2.0 mmol/L LAB CHEMISTRY METHOD 02/15/2025 2:05 PM EDT [facility] Blood Venous blood specimen / Unknown Venipuncture / Unknown 02/15/2025 1:00 PM EDT 02/15/2025 1:24 PM EDT 9SLIDESsoy griddig Leonard Saavedra LAB BLOOD ORDERABLES Hillray l Result Performing Organization Address City/[facility]/ZIP Co de Phone Number [facility] [address] [place] [address], [place] [phone] * Blood culture (02/15/2025 12:59 PM EDT) Only the most recent of2 resultswithin the time period is included. Culture, Blood No growth at 5 days 02/20/2025 2:01 PM EDT [facility] Blood Venous blood specimen / Unknown Venipuncture / Unknown 02/15/2025 12:59 PM EDT 02/15/2025 1:24 PM EDT 9SLIDES griddig LeonardVdolg LAB MICROBIOLOGY - GENERA L ORDERABLES Final Result [facility] [address] [place] [address], [place] [phone] * Troponin I high sensitivity (02/15/2025 12:51 PM EDT) Only the most recent of2 resultswithin the time period is included. [facility] High Sensitivity Troponin I 48 <=79 ng/L LAB CHEMISTRY METHOD 02/15/2025 2:59 PM EDT [facility] Blood Venous blood specimen / Unknown 02/15/2025 12:51 PM EDT 02/15/2025 2:45 PM EDT Narrative [facility] - 02/15/2025 2:59 PM EDT High levels of biotin in samples may falsely decrease hsTroponin values. Use caution when interpreting hsTroponin results in patients taking biotin who exhibit renal impairment (eGFR <60) or in patients taking more than 20 mg/day of biotin. Fantom Zaida Saavedra DO LAB BLOOD ORDERABLES Hillary l Result [facility] [address] [place] [address], [place] [phone] * ECG 12 lead (02/15/2025 12:38 PM EDT) [facility] Ventricular Rate ECG 87 BPM GEMUSE Atrial Rate 87 BPM GEMUSE P-R Interval 144 ms GEMUSE QRS Duration 86 ms GEMUSE Q-T Interval 382 ms GEMUSE QTc 459 ms GEMUSE P Wave [place] 48 degrees GEMUSE R [place] 24 degrees GEMUSE T [place] 66 degrees GEMUSE ECG Interpretation Normal sinus rhythm Poor R wave progression When compared with ECG of 12-MAR-2023 16:53, No significant change was found Confirmed by Kal LINK, YEISON ([id number]) on 02/15/2025 5:37:35 PM GEMUSE 02/15/2025 12:3 8 PM EDT 02/15/2025 5:37 PM EDT Digicompanionsoy griddig Leonard Saavedra DO ECG ORDERABLES Final Res ult GEMUSE * (ABNORMAL) Urinalysis with reflex microscopic and culture (02/15/2025 12:35 PM EDT) Specific [place] Urine 1.032(H) 1.003 - 1.030 LAB URINALYSIS - AUTOMATED METHOD 02/15/2025 1:10 PM [facility] pH, Urine 5.5 5.0 - 8.0 pH LAB URINALYSIS - AUTOMATED METHOD 02/15/2025 1:10 PM [facility] Leukocytes, Urine Negative Negative LAB URINALYSIS - AUTOMATED METHOD 02/15/2025 1:10 PM [facility] Nitrite, Urine Negative Negative LAB URINALYSIS - AUTOMATED METHOD 02/15/2025 1:10 PM [facility] Protein, Urine >=1000(A) <=Trace mg/dL LAB URINALYSIS - AUTOMATED METHOD 02/15/2025 1:10 PM [facility] Glucose, Urine >=1000(A) Negative mg/dL LAB URINALYSIS - AUTOMATED METHOD 02/15/2025 1:10 PM [facility] Ketones, Urine Trace(A) Negative mg/dL LAB URINALYSIS - AUTOMATED METHOD 02/15/2025 1:10 PM [facility] Urobilinogen , Urine 1.0 0.2 - 1.0 mg/dL LAB URINALYSIS - AUTOMATED METHOD 02/15/2025 1:10 PM [facility] Bilirubin, Urine Small(A) Negative LAB URINALYSIS - AUTOMATED METHOD 02/15/2025 1:10 PM [facility] Blood, Urine Moderate(A) Negative LAB URINALYSIS - AUTOMATED METHOD 02/15/2025 1:10 PM [facility] RBC, Urine 13.2(H) 0 - 4 /HPF LAB URINALYSIS - AUTOMATED METHOD 02/15/2025 1:10 PM EDT [facility] WBC, Urine 3.2 0 - 4 /HPF LAB URINALYSIS - AUTOMATED METHOD 02/15/2025 1:10 PM EDT [facility] Squamous Epithelial, Urine 30 0 - 60 /LPF LAB URINALYSIS - AUTOMATED METHOD 02/15/2025 1:10 PM EDT [facility] Bacteria, Urine Negative Negative /HPF LAB URINALYSIS - AUTOMATED METHOD 02/15/2025 1:10 PM EDT [facility] Hyaline Casts, Urine 26.5(H) 0 - 3 /LPF LAB URINALYSIS - AUTOMATED METHOD 02/15/2025 1:10 PM EDT [facility] Urine Urine specimen obtained by clean catch procedure / Unknown Non-blood Collection / Unknown 02/15/2025 12:35 PM EDT 02/15/2025 12:53 PM EDT [facility] Leonard Saavedra DO LAB URINE ORDERABLES Hillary l Result [facility] [address] [place] [address], * Respiratory virus panel molecular study (02/15/2025 12:35 PM EDT) Adenovirus Detection by PCR Not Detected Not Detected LAB MICROBIOLOGY METHOD 02/15/2025 1:44 PM EDT [facility] Influenza A PCR Not Detected Not Detected LAB MICROBIOLOGY METHOD 02/15/2025 1:44 PM EDT [facility] Influenza B PCR Not Detected Not Detected LAB MICROBIOLOGY METHOD 02/15/2025 1:44 PM EDT [facility] Coronavirus 229E Not Detected Not Detected LAB MICROBIOLOGY METHOD 02/15/2025 1:44 PM EDT [facility] Coronavirus HKU1 Not Detected Not Detected LAB MICROBIOLOGY METHOD 02/15/2025 1:44 PM EDT [facility] Coronavirus OC43 Not Detected Not Detected LAB MICROBIOLOGY METHOD 02/15/2025 1:44 PM EDT [facility] Coronavirus NL63 Not Detected Not Detected LAB MICROBIOLOGY METHOD 02/15/2025 1:44 PM EDT [facility] Parainfluenza Virus 1 Not Detected Not Detected LAB MICROBIOLOGY METHOD 02/15/2025 1:44 PM EDT [facility] Parainfluenza Virus 2 Not Detected Not Detected LAB MICROBIOLOGY METHOD 02/15/2025 1:44 PM EDT [facility] Parainfluenza Virus 3 Not Detected Not Detected LAB MICROBIOLOGY METHOD 02/15/2025 1:44 PM EDT [facility] Parainfluenza Virus 4 Not Detected Not Detected LAB MICROBIOLOGY METHOD 02/15/2025 1:44 PM EDT [facility] RSV PCR Not Detected Not Detected LAB MICROBIOLOGY METHOD 02/15/2025 1:44 PM EDT [facility] Human Metapneumovirus A and B Not Detected Not Detected LAB MICROBIOLOGY METHOD 02/15/2025 1:44 PM EDT [facility] Rhinovirus/Entero virus Not Detected Not Detected LAB MICROBIOLOGY METHOD 02/15/2025 1:44 PM EDT [facility] Bordetella pertussis Not Detected Not Detected LAB MICROBIOLOGY METHOD 02/15/2025 1:44 PM EDT [facility] Bordetella parapertussis Not Detected Not Detected LAB MICROBIOLOGY METHOD 02/15/2025 1:44 PM EDT [facility] Mycoplasma pneumo by PCR Not Detected Not Detected LAB MICROBIOLOGY METHOD 02/15/2025 1:44 PM EDT [facility] Chlamydia pneumoniae Not Detected Not Detected LAB MICROBIOLOGY METHOD 02/15/2025 1:44 PM EDT [facility] SARS COV-2 Not Detected Not Detected LAB MICROBIOLOGY METHOD 02/15/2025 1:44 PM EDT [facility] Swab Nasopharyngeal structure / Unknown Non-blood Collection / Unknown 02/15/2025 12:35 PM EDT 02/15/2025 12:53 PM EDT Narrative [facility] - 02/15/2025 1:44 PM EDT Testing was performed using the tu.nr Respiratory Pathogen PCR Assay. All results must [...] that are below the limit of detection. Zaida griddig Leonard Saavedra LAB MICROBIOLOGY - GENERA L ORDERABLES Final Result Performing Organization Address [facility]/ZIP Co de Phone Number [facility] [address] [place] [address], [place] [phone] * Moreno urine culture tube (02/15/2025 12:35 PM EDT) Pathologist [facility] Extra Tube Hold for add-ons. 02/15/2025 2:01 PM EDT [facility] Comment:Auto resulted. Urine Urine specimen obtained by clean catch procedure / Unknown Non-blood Collection / Unknown 02/15/2025 12:35 PM EDT 02/15/2025 12:53 PM EDT [facility] Leonard Saavedra LAB URINE ORDERABLES Hillary l Result [facility] [address] [place] [address], [place] [phone] * Creatine kinase (02/15/2025 12:23 PM EDT) Pathologist [facility] Total CK 169 22 - 269 unit/L LAB CHEMISTRY METHOD 02/15/2025 2:28 PM EDT [facility] Blood Venous blood specimen / Unknown Venipuncture / Unknown 02/15/2025 12:23 PM EDT 02/15/2025 12:54 PM EDT us Zaida Saavedra DO LAB BLOOD ORDERABLES Hillary l Result [facility] [address] [place] [address], [place] [phone] * (ABNORMAL) Hepatic function panel (02/15/2025 12:23 PM EDT) Total Protein 5.7(L) 6.0 - 8.0 g/dL LAB CHEMISTRY METHOD 02/15/2025 1:50 PM EDT [facility] Albumin 1.9(L) 3.2 - 5.0 g/dL LAB CHEMISTRY METHOD 02/15/2025 1:50 PM EDT [facility] Total Bilirubin 1.3 0.0 - 1.4 mg/dL LAB CHEMISTRY METHOD 02/15/2025 1:50 PM EDT [facility] Bilirubin, Direct 0.2 0.0 - 0.3 mg/dL LAB CHEMISTRY METHOD 02/15/2025 1:50 PM EDT [facility] Comment:Hemolysis present Bilirubin, Indirect 1.1 0.0 - 1.1 mg/dL LAB CHEMISTRY METHOD 02/15/2025 1:50 PM EDT [facility] ALT (SGPT) 18 10 - 60 unit/L LAB CHEMISTRY METHOD 02/15/2025 1:50 PM EDT [facility] AST (SGOT) 33 10 - 42 unit/L LAB CHEMISTRY METHOD 02/15/2025 1:50 PM EDT [facility] Comment:Hemolysis present Alkaline Phosphatase 130(H) 42 - 121 unit/L LAB CHEMISTRY METHOD 02/15/2025 1:50 PM EDT [facility] Blood Venous blood specimen / Unknown Venipuncture / Unknown 02/15/2025 12:23 PM EDT 02/15/2025 12:54 PM EDT us Zaida Saavedra DO LAB BLOOD ORDERABLES Hillary thomas Result [facility] [address] [place] [address], [place] [phone] from Last 3 Months Additional Health Concerns Infection Onset Date Last Indicated MRSA 02/18/2025 02/18/2025 Insurance [facility] PUBLIC PLANS Advance Directives * Full Code - [...]
== END 2025-04-28 15:29 | disposition home or self-care (01) ==
LOC: HO.HUSH 14:36
PROVIDERS: PCP Registered Nurse; Visit Provider Urology
DX: Z13.9 Encounter for screening, unspecified (principal); N40.1 Benign prostatic hyperplasia with lower urinary tract symptoms
CPT/HCPCS: 99204

== ENCOUNTER 2025-04-28 14:36 | Outpatient (REF) | payer OTHER, SELFPAY ==
[2025-04-28 16:23] LABS: Urine Cytology See Pathology rpt
[2025-04-28 18:06] LABS: Appearance Urine Clear; Color Urine Yellow; Glucose Urine UA >=1000 mg/dL (Negative); Leukocyte Esterase Urine Negative (Negative); Nitrite Urine Negative (Negative); PH 5.5 (5.0-9.0); UMIC TRIGGER UA YES; Urine Blood Small (1+) (Negative); Urine Ketones Negative (Negative); Urine Protein 300 (3+) mg/dL (Neg-Trace)
[2025-04-28 18:21] LABS: Bacteria Urine None Seen (None Seen); Granular Casts Urine Present; Squamous Epithelial Cell Urine 0-2 /HPF (0-2); WBC Urine 0-5 /HPF (0-5)
== END 2025-04-28 14:37 | disposition home or self-care (01) ==
LOC: HO.LAB 14:36
PROVIDERS: PCP Registered Nurse; Visit Provider Urology
DX: R31.0 Gross hematuria (principal); R31.9 Hematuria, unspecified; N40.1 Benign prostatic hyperplasia with lower urinary tract symptoms
CPT/HCPCS: 81001; 81003; 88112; 99202

== ENCOUNTER 2025-05-08 09:00 | Outpatient (RCR) | payer OTHER, SELFPAY | END 2025-05-30 16:19 | disposition home or self-care (01) | LOC: HO.WCC 09:00 | PROVIDERS: PCP Registered Nurse; Visit Provider Surgery | DX: E11.622 Type 2 diabetes mellitus with other skin ulcer (principal); L97.212 Non-pressure chronic ulcer of right calf with fat layer exposed; S91.114A Laceration without foreign body of right lesser toe(s) without damage to nail, initial encounter; L85.3 Xerosis cutis; L40.0 Psoriasis vulgaris; W19.XXXA Unspecified fall, initial encounter; Y93.9 Activity, unspecified; Y92.9 Unspecified place or not applicable; Y99.9 Unspecified external cause status | CPT/HCPCS: 11042; 97597; 99212; 99213 ==

== ENCOUNTER 2025-05-22 08:30 | Outpatient (AMB) | payer OTHER, SELFPAY ==
--- NOTE | 2025-05-22 08:35 | MHC.OFFVIS ---
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 phalen/chf,htn Ceramics Technician Required: Yes Ceramics Technician Name: BRADLEY [id number] Allergies No Known Allergies Allergy (Verified 04/28/25 15:06) Medication List - Last Reconciled 05/22/25 by Meño Butcher MD acetaminophen 650 mg PO TID PRN aspirin 81 mg PO DAILY atorvastatin 40 mg PO BEDTIME carvedilol 6.25 mg PO BID empagliflozin (Jardiance) 10 mg PO DAILY furosemide (Lasix) 80 mg PO BID ixekizumab (Taltz Autoinjector) mg subcut metformin ER 500 mg PO BID sacubitril-valsartan 49-51 mg (Entresto) 1 tab PO BID spironolactone 25 mg PO DAILY tamsulosin 0.4 mg PO QPM HPI Comments Details: Joesph is here for consultation regarding cardiomyopathy. 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 It seems that he was getting care at [facility] but would like to switch his care to [place]. He states that with activity, he just gets tired. However, denies any clear-cut shortness of breath. No exertional angina. Many comorbidities including obesity, type 2 diabetes, hypertension, dyslipidemia, untreated sleep apnea. [facility] Medical History (Updated 05/22/25 @ 08:59 by Meño Butcher MD) RAKAN (obstructive sleep apnea) CHF (congestive heart failure) Psoriasis Psoriatic arthritis Hypercholesteremia Lumbago with sciatica, right side Elev transaminase/LDH Neuropathy Diabetes Psoriasis Family History Father Diabetes HTN (hypertension) Mother Diabetes Social History Household Members: Spouse Housing: House Do you presently have visiting nurse or other home services: No Alcohol intake: never Patient Tobacco Use Status: Never used Tobacco e-Cigarette/Vaping Use: Never Used service: No Current occupational status: employed 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 Review of Systems Const Denies weakness ENT Reports dizziness Card Denies chest pain, Denies chest pain with activity, Denies syncope, Denies rapid heart rate, Denies pedal edema, Denies edema, Denies leg edema, Denies lightheadedness, Denies palpitations, Reports dyspnea, Reports dyspnea on exertion and Reports orthopnea Resp Denies cough, Reports dyspnea and Reports dyspnea on exertion GI Denies hematochezia and Denies change in stool character Musc Denies abnormal gait, Denies muscle cramps, Denies muscle weakness, Denies numbness, Denies radiating pain into limb and Denies tingling Neuro Denies abnormal gait, Reports dizziness, Denies syncope, Denies numbness, Denies tingling and Denies weakness Endo Denies palpitations Physical Exam Vital Signs: Last Vital Signs Pulse 69 05/22/25 08:36 BP 140/70 H 05/22/25 08:36 BMI result Body Mass Index 32.0 Const General: comfortable and no acute distress Orientation/consciousness: patient oriented x3 HEENT Other: Unremarkable Head: Yes normal to inspection Neck Neck: Yes normal visual inspection Chest Chest palpation & inspection: normal inspection of the chest Resp Auscultation: clear to auscultation bilaterally Cardio Palpation: normal PMI Heart sounds: S1 normal heart sound present, S2 normal heart sound present, no gallops, no murmurs and no rubs GI Palpation (GI): Soft to palpation Back/Spine/Pelvis Other: unremarkable Skin General skin exam: no rashes or lesions noted Neuro General: patient oriented x3 Extrem Other: 1+ edema General: Yes normal to inspection Psych Mental Status: mental status grossly normal Office Procedures EKG Details: Not performed 56481-Vkzlejzjjtrexrkeh, Complete Assessment & Plan Assessment & Plan (1) Chronic combined systolic and diastolic CHF (congestive heart failure): Code(s): I50.42 - Chronic combined systolic (congestive) and diastolic (congestive) heart failure Category: Medical Plan Cardiac catheterization from 2023-proximal LAD 30% stenosis. Distal LAD 50% stenosis. Minimal to mild disease elsewhere. Per cath report, LVEF of 35-40%. In the more recent echocardiogram from February 2025, LVEF 45-50% with moderate diastolic dysfunction. Fyic-pw-[id number] pulmonary hypertension. With regard to medications, he is on carvedilol, Entresto. Also on Jardiance. We will add spironolactone. Follow-up labs for creatinine potassium. Continue the current dose of diuretic. Advised to seek care from pulmonology regarding obstructive sleep apnea and its implications on heart failure. Follow up in 2 months. Discussed using professor of biblical studies. Discussion Notes I discussed with the patient the addition of a new medication to support heart function, emphasizing the importance of adherence to the prescribed regimen. We also talked about the need for follow-up blood work in two weeks and a subsequent appointment in two months to evaluate treatment progress. I advised the patient on the necessity of repairing or replacing the CPAP machine to manage sleep apnea effectively, as it could affect his heart condition. Patient was informed and verbally consented to the use of an ambient scribe for clinic note documentation during this visit. Orders: Orders Basic Metabolic Panel 2 Weeks I50.9 - Heart failure, unspecified Medications: New spironolactone 25 mg PO DAILY 90 tabs 1RF Patient Instructions: - Take all prescribed medications as directed. - Schedule and complete blood work in two weeks. - Attend follow-up appointment in two months. - Repair or replace CPAP machine to manage sleep apnea. Coding Level of Care Code New Pt Level 4 (34143) Complex EM visit Add On G2211 Diagnoses Chronic combined systolic and diastolic CHF (congestive heart failure) I50.42 CPT Codes EKG - CPT: 66021-Nimaueyzvlgsndide, Complete ([id number])
[2025-05-22 08:36] VITALS: BP 140/70; PULSE 69; BMI 32.0
--- OUTSIDE RECORDS SUMMARY | 2025-05-22 08:51 | XMS_ITS | Encounter Summary ---
Author Organization [employer] Address [address] [place] [address] Care Team Providers Care Life Sciences Instructor Name Role Phone Marilee Cordero BRANDEN Primary Care Provider [phone] Cristo Garcia MD Unavailable Doris Candelario Unavailable [phone] Yoselyn Lyons Unavailable Unavailable Balbir Don Unavailable Encounter Details Date Type Department Care Team (Late st Contact Info) Description 08/11/2023 Abstract [facility] [address] [place] [address] Gavino Lacey, DMD [address] [place] [address] Social History Tobacco Use Types Packs/Day Years [...] Care Team (Late st Contact Info) Description 05/29/2025 1:00 PM EDT Medication Management [facility] [address] [place] [address] Lindsay Nur PharmD [address] [place] [address] 07/04/2025 8:30 AM EDT Office Visit [facility] [address] [place] [address] Marilee Cordero FNP [address] [place] [address] documented as of this encounter Visit Diagnoses Not on filedocumented in this encounter Additional Health Concerns Assessment Noted Time PHQ-9 Depression Total Score: 1 10/17/20 22 10:05 AM EST documented as of this encounter Care Teams Life Sciences Instructor Relationship Specialty Start Date End Date Marilee Cordero FNP [address] [place] [address] PCP - General Family Medicine 03/23/23 Cristo Garcia MD [address] [place] [address] [place] [address] Rheumatology 09/01/24 Doris Candelario [address] [place] [address] Cardiology 09/01/24 Yoselyn Lyons [address] [place] [address] Ophthalmology 09/01/24 Balbir Don [address] [facility] [address] [place] [address] Sleep Medicine 09/01/24 Dr. Ramirez [address] [facility] [address] [place] [address] Nephrology 09/01/24 Noman LAWRENCE 03/18/25 05/04/25 documented as of this encounter
--- OUTSIDE RECORDS SUMMARY | 2025-05-22 08:53 | XMS_ITS | Clinical Summary ---
Author Organization [facility] Address [address] [address] Phone Care Team Providers Care Bench Grinder Name Role Phone Marilee Cordero BRANDEN Primary Care Provider Allergies No known active allergies Medications amLODIPine [...] the skin at bed time 03/23/2023 Active furosemide (LASIX) 40 MG tablet Take 1 tablet (40 mg total) by mouth in the morning and 1 tablet (40 mg total) in the evening. Take 80 mg oral BID until swelling goes down, then continue 40 mg oral BID. 180 tablet 3 04/03/2024 Active Active Problems Problem Noted Date Diagnosed Date Obese class I 03/26/2025 Proteinuria 09/01/2024 Overview (03/26/2025): Followed by [facility] - Dr. Maturostrakul Jardiance 10mg daily Congestive heart failure 11/26/2023 Overview (04/03/2024): [facility]: Nuclear stress test: Negative ECG portion of the stress test. Myocardial perfusion imaging is normal with no evidence or fixed or reversible perfusion defects. Moderately reduced global LV function? with resting left ventricular EF of 33%, and post stress LVEF 36%. LV size moderately dilated. No evidence of transient ischemic dilation. Hospitalization for CHF exacerbation: Oct 2023 at [facility] Last Assessment & Plan: - Reviewed [...] Psoriatic arthritis 06/04/2012 Overview (03/26/2025): Followed by [facility] - Dr. Garcia Med therapy: DMARD, Derik Previous tx: methotrexate and Enbrel (hx of failed Humira tx in Rheum note 02/04/21). Plan to hold methotrexate with hx cardiac conditions Obstructive sleep apnea syndrome 06/04/2012 Overview (03/26/2025): Following with [facility] - Dr. Balbir Don Cont w/ CPAP, [...] 04/28/2025 025, 08/30/2024, 02/26/2024, Additional history exists Influenza Vaccine (#1) 2025 , 08/11/2023, 10/17/2022, Additional history exists Pneumococcal Vaccine: Peds ( 0 to 5 Years) and At-Risk Patients (6 to 49 Years) Discontinued 06/28/2018, 09/30/2008 Insurance [facility] ([id number]) [facility] ([id number]) Care Teams Bench Grinder Relationship Specialty Start Date End Date Marilee Cordero FNP [address] [place] [address] PCP - General 01/08/24
--- OUTSIDE RECORDS SUMMARY | 2025-05-22 08:53 | XMS_ITS | Clinical Summary ---
Author Organization [facility] [place] [address] Phone Care Team Providers Care Galley Hand Name Role Phone Physician, Pcp Unknown Primary Care Provider Ana Laura vailable Allergies No known active allergies Medications aspirin [...] Problem Noted Date Diagnosed Date Hypoxia 02/15/2025 Surgical History Surgery Date Site/Laterality Comments OTHER SURGICAL HISTORY 07/03/2002 PROCEDURE: HISTORY OTHER; COMMENT: nasal septal reconstruction with laser turbinectomy Medical History Medical History Date Comments HTN (hypertension) 06/04/2012 DX:HTN (hyper tension) DM2 (diabetes mellitus, type 2) ([facility] V24, [facility] V28) 06/04/2012 DX:DM2 (diabetes mellitus, t ype 2) ([facility]) Obstructive sleep apnea 06/04/2012 DX:Obstr uctive sleep apnea Psoriatic arthritis ([facility] V24, [facility] V28) 06/04/2012 DX:Psoriatic arthritis ([facility]) Hyperlipidemia 06/04/2012 DX:Hyperlipidemi a; COMMENT: IMO [...] Heart attack Other cousins with fa [place]'s 40's Asthma Sister Relation Name Status Comments [...] Vaccine ( season) 2024 01/14/2022, 03/03/2021, 02/03/2021 Depression Screening 10/30/2024 Influenza Vaccine (#1) 2025 , 08/11/2023, 10/17/2022, Additional history exists Diabetes: Blood Sugar Control Test (HGBA1C) 07/29/2025 01/27/2025, 08/30/2024 Diabetes: Annual GFR (Glomerular Filtration Rate) 02/19/2026 [...] Screening Completed 09/13/2023 Hepatitis C Screening Completed 02/16/2025 HIB Vaccines [...] Date/Time Associated Diagnosis Comments ECG ANNOTATED 02/20/2025 BASIC METABOLIC PANEL Timed 02/19/2025 6:01 AM EDT HEPATITIS C ANTIBODY Routine 02/16/2025 2:00 PM EDT from Last 3 Months or Most Recently Relevant to Health Maintenance Results * ECG-Annotated (02/20/2025) us Provider Onbase MD ECG ORDERABLES Final Result * (ABNORMAL) Basic metabolic panel (02/19/2025 6:01 AM EDT) Sodium 136 133 - 145 mmol/L LAB CHEMISTRY METHOD 02/19/2025 7:13 AM [facility] Potassium 3.6 3.5 - 5.5 mmol/L LAB CHEMISTRY METHOD 02/19/2025 7:13 AM [facility] Chloride 98 96 - 110 mmol/L LAB CHEMISTRY METHOD 02/19/2025 7:13 AM [facility] CO2 35(H) 21 - 32 mmol/L LAB CHEMISTRY METHOD 02/19/2025 7:13 AM [facility] Anion Gap 3 3 - 11 LAB CHEMISTRY METHOD 02/19/2025 7:13 AM [facility] Glucose 258(H) 70 - 100 mg/dL LAB CHEMISTRY METHOD 02/19/2025 7:13 AM EDT [facility] BUN 19 5 - 25 mg/dL LAB CHEMISTRY METHOD 02/19/2025 7:13 AM EDT [facility] Creatinine 1.08 0.70 - 1.30 mg/dL LAB CHEMISTRY METHOD 02/19/2025 7:13 AM EDT [facility] eGFR 82 >=60 mL/min/1. 73m2 LAB CHEMISTRY METHOD 02/19/2025 7:13 AM EDT [facility] Comment:Calculation based on the [...] ORDERABLES Final Resul t Performing Organization Address City/[facility]/ZIP Co de Phone Number [facility] [address] [place] [address], * Hepatitis C antibody (02/16/2025 2:00 PM EDT) Hepatitis C Antibody Negative Negative LAB CHEMISTRY METHOD 02/16/2025 5:37 PM EDT [facility] Blood Venous blood specimen / Unknown Venipuncture / Unknown 02/16/2025 2:00 PM EDT 02/16/2025 2:05 PM EDT us Ish David MD LAB BLOOD ORDERABLES Final Res ult [facility] [address] [place] [address], from Last 3 Months or Most Recently Relevant to Health Maintenance Additional Health Concerns Infection Onset Date Last Indicated MRSA 02/18/2025 02/18/2025 Insurance [facility] [employer] Advance Directives * Full Code - [...] discontinue any currently active code status orders. Care Teams Galley Hand Relationship Specialty Start Date End Date Physician, Pcp Unknown PCP - General 05/01/25
== END 2025-05-22 09:13 | disposition home or self-care (01) ==
LOC: HO.HCS 08:30
PROVIDERS: PCP Registered Nurse; Visit Provider Internal Medicine
DX: I50.42 Chronic combined systolic (congestive) and diastolic (congestive) heart failure (principal)
CPT/HCPCS: 93010; 99204

== ENCOUNTER → 2025-05-22 08:30 | Outpatient (BNVA) | payer OTHER, SELFPAY | PROVIDERS: PCP Registered Nurse; Visit Provider Internal Medicine | DX: I11.0 Hypertensive heart disease with heart failure (principal); I50.42 Chronic combined systolic (congestive) and diastolic (congestive) heart failure | CPT/HCPCS: 93005; 99202 ==

== ENCOUNTER 2025-07-04 10:03 | Outpatient (REF) | payer OTHER, SELFPAY ==
--- OUTSIDE RECORDS SUMMARY | 2018-07-03 09:45 | XMS_ITS | Continuity of Care Document ---
Author Organization [facility] vices Address [address] [place] [address] Phone Care Team Providers Care Psych Np Name Role Phone Unavailable Unavailable Unavailable Procedures Procedure Date Psychotherapy, 30 Minutes With Patient S Psych Dx Eval Psychotherapy, 30 Minutes With Patient A Advance Directives Directive Yes / No Effective Date File Name No Information Encounters Encounter Description Practice Location Reason(s) For Visit Diagnoses Date Provider Providers Copied on Encounter Psychotherap y, 30 Minutes With Patient [facility], [address] [place] [address], tel:[phone] [facility] Behavioral Health Individual Therapy (chief complaint) Cannabis use, unspecified, uncomplicatedC ocaine use, unspecified, uncomplicatedM ajor depressive disorder, recurrent, mildPost-traum atic stress disorder, unspecified Sep-0 8 No Information Psych Dx Eval [facility], [address] [place] [address], [facility], tel:[phone] [facility] Behavioral Health Initial Assessment (chief complaint) Major depressive disorder, recurrent, mildPost-traum atic stress disorder, unspecifiedCoc norman use, unspecified, uncomplicatedC annabis use, unspecified, uncomplicated May- 8 No Information Psychotherap y, 30 Minutes With Patient [facility], [address] [place] [address], tel:[phone] [facility] Behavioral Health depression (chief complaint) Major depressive disorder, recurrent, mildPost-traum atic stress disorder, unspecified May-2 8 No Information Family History Family Member Type Diagnosis Age At Onset No Information Payers Payer name Insurance type Covered alliance party ID Authoriza tiluiz(s) BRII Alonso [id number] Social History Type Description Quantity Date Captured [...]
--- OUTSIDE RECORDS SUMMARY | 2025-07-03 12:20 | XMS_ITS | Continuity of Care Document ---
Author Organization [facility] Address [address] [place] [id number] Phone Care Team Providers Care Unit Control Clerk Name Role Phone Jonny Snow MD Unavailable [...] LT 130 MM HG POS MACROALBUMINURIA REV Results Test Name Date and Time Measure Units Reference Range Abnormal Flag Status Commen ts Panel Description: Hemoglobin A1c/Hemoglobin.tot al in Blood Final Hemoglobin A1c 5.9 % 5.7 - 6.4 Final Advance Directives Directive Yes / No Effective Date File Name No Information Encounters Encounter Description Practice Location Reason(s) For Visit Diagnoses Date Provider OFFICE/OUTPAT IENT VISIT, EST [facility], [address] [place] [address], [id number], tel:[phone] [facility] [address] [place] diabetes (follow up) (chief complaint)E D Follow Up (chief complaint) Essential (primary) hypertensionType 2 diabetes mellitus without complicationsHemoptysis Sep-0 5 Snow Jonny. [address] [place] [address], [id number], . tel:[phone] [employer] [facility], [address] [place] [address], [id number], tel:[phone] CM MAT [facility] [address] [place] May-2 0 5 Phuc S[place]il[place]. [address] [place] [address], [id number], [place]. tel:[phone] [employer] [facility], [address] [place] [address], [facility], tel:[phone] OP A [facility] [address] [place] Medication Management (chief complaint)P sychiatric (chief complaint) Apr-3 5 Choi Luna. [address] [place] [address], [id number], [place]. tel:[phone] [employer] [facility], [address] [place] [address], [facility], tel:[phone] CM MAT [facility] [address] Apr-0 9 5 Phuc [place]. [address] [place] [address], [id number], [place]. tel:[phone] [facility] [employer], [address] [place] [address], [facility], [place] tel:[phone] CM MAT [facility] [address] Apr-0 2 5 Phuc [place]. [address] [place] [address], [id number], [place]. tel:[phone] [employer] [facility], [address] [place] [address], [id number], [place] tel:[phone] CM MAT [facility] [address] February- 8 5 Phuc [place]. [address] [place] [address], [id number], [place]. tel:[phone] [facility], [address] [place] [address], [id number], tel:[phone] No Information 5 Markel Galarza. [address] [place] [address], [address] [place] [address], [place]. tel:[phone] [facility], [address] [place] [address], [facility], tel:[phone] OP A [address] Medication Management (chief complaint)P sychiatric (chief complaint) Body mass index (BMI) 33.0-33.9, adult 5 Almaskey Audrey. [address] [place] [address], [address] [place] [address], [place]. tel:[phone] [facility], [address] [place] [address], [facility], tel:[phone] [facility] [address] Medication Refill (chief complaint)C hest congestion (chief complaint) Type 2 diabetes mellitus without complicationsGERD w/o esophagitisCoughEssential (primary) hypertensionBody mass index (BMI) 32.0-32.9, adultDietary counseling and surveillanceExercise counseling 5 Edy Fuller. [address] [place] [address], [address] [place] [address], [place]. tel:[phone] [facility], [address] [place] [address], [facility], tel:[phone] IOP A [address] 5 Aubrey Cerda. [address] [place] [address], [id number], [place]. tel:[phone] [facility], [address] [place] [address], [facility], [place] tel:[phone] IOP A [facility] [address] [place] 5 Aubrey Cerda. [address] [place] [address], [address] [place] [address], [place]. tel:[phone] [facility], [address] [place] [address], [address], [place] tel:[phone] IOP A [facility] [address] [place] 5 Leo Raul. [address] [place] [address], [id number], [place]. tel:[phone] [facility], [address] [place] [address], [id number], [place] tel:[phone] IOP A [facility] [address] [place] 0 6-202 5 Aubrey Cerda. [address] [place] [address], [id number], [place]. tel:[phone] [facility], [address] [place] [address], [address], [place] tel:[phone] IOP A [facility] [address] [place] 0 2- 5 Leo Raul. [address] [place] [address], [id number], [place]. tel:[phone] [facility], [address] [place] [address], [id number], tel:[phone] CM MAT [facility] [address] Jan-3 0 5 [place]. [address] [place] [address], [id number], [place]. tel:[phone] [facility], [address] [place] [address], [id number], [place] tel:[phone] [facility] [address] [place] No Information Dec-3 5 Margarito Sher. [address] [place] [address], [id number], [place]. tel:[phone] [facility], [address] [place] [address], [address], [place] tel:[phone] CM MAT [facility] [address] Nov-2 5 Phuc [place]. [address] [place] [address], [id number], [place]. tel:[phone] [facility], [address] [place] [address], [id number], [place] tel:[phone] OP A [facility] [address] [place] 8 5 Pedra Isa. [address] [place] [address], [id number], [place]. tel:[phone] [facility], [address] [place] [address], [facility], tel:[phone] OP A [facility] [address] [place] 5 Cueva Rossy. [address] [place] [address], [address] [place] [address], [place]. tel:[phone] [employer], [address] [place] [address], [facility], tel:[phone] [facility] [address] [place] EOC ([facility] ent of care) (chief complaint)e stablish care (chief complaint) Body mass index (BMI) 32.0-32.9, adultEssential (primary) hypertensionType 2 diabetes mellitus without complicationsGERD w/o esophagitisPerson encountering health serviceDietary counseling and surveillanceExercise counseling 5 Grabiel Rasmussen. [address] [place] [address], [id number], [place]. tel:[phone] [facility] [employer] [facility], [address] [place] [address], [facility], tel:[phone] CM MAT [facility] [address] 5 Phuc [place]. [address] [place] [address], [id number], [place]. tel:[phone] As per patient privacy policy some of the clinical information may not be visible. Family History Family Member Type Diagnosis Age At Onset No Information Immunizations Vaccine Date Status Comments HepA/B (TWIN[place]) administered Source: Oth er Registry HepA/B ([place]) administered Source: Ot er Registry COVID-19 Vector-NR (JSN) administered Alaina rce: Other Registry Payers Payer name Insurance type Covered constitution party ID Authorantony rodriguez(s) Devi Alonso [id number] Social History Type Description Quantity Date Captured [...] Dental exam. Due on 025 due Goal Dilated eye exam. Due on Jun due Goal Hep B (1st) due Goal ASCVD 10 year risk. Due on due Goal Lipid panel. Due on 025 due Goal Hep B (3rd). Due on 023 due Goal Pneumococcal vac cine. Due on due Goal Hemoglobin A1C. Due on due Goal Influenza vaccine. Due on due Goal Influenza vaccine. Due on Au due Goal ASCVD 10 year risk. Due [...] Goal Hemoglobin A1C. Due on due Goal GFR. Due on [...] due Goal GFR. Due on due Goal Hemoglobin A1C. Due on due Goal Hep B (2nd) due Goal Influenza vaccine. Due on due Goal Dental exam. Due on 025 due Goal Hep B (3rd). Due on 023 due Goal Hep B (1st) due Goal [...] on due Goal Influenza vaccine. Due on Fl due Goal Pneumococcal vac cine. Due on due Goal Hep B (1st) due Goal Lipid panel. Due on due Goal GFR. Due on due Goal Foot exam. Due on due Goal Hep B (3rd). Due on due Goal Dental exam. Due on due Goal Lifestyle education regardin [...] regardin g diet completed Goal Hep B (1st) due Goal Foot exam. Due on due Goal Influenza vaccine. Due on Fl due Goal GFR. Due on due Goal Pneumococcal vac cine. Due on due Goal Dilated eye exam. Due on February due Goal Hep B (2nd) due Goal ASCVD 10 year risk. Due on due Goal Hep B (3rd). [...] A1C. Due on due Goal Hep B (3rd). [...] year risk. Due on M due Goal Foot exam. Due on due Goal Pneumococcal vac cine. Due on due Goal Hep B (1st) due Goal Influenza vaccine. Due on Ma due Goal Dental exam. Due on due [...] Influenza vaccine. Due on Ap due Goal Lipid panel. Due on due [...] Goal Dental exam. Due on due Goal ASCVD 10 [...] Lifestyle education regardin g diet completed Goal Tobacco cessation counseling completed Referral Ordered: CT THORAX W/O DYE ordered Appointment Joesph Saldana BOOKED Appointment Joesph Saldana BOOKED Appointment Joesph Saldana BOOKED Future Order: Lab Order COMPREHE NSIVE METABOLIC PANEL ([id number]), Sent on: Sent Future Order: Lab Order HIV 1/2 ANTIGEN/ANTIBODY, FOURTH GEN W/ REFLEX ([id number]), Sent on: Sent Future Order: Lab Order MICROALB UMIN, RANDOM URINE (W/CREATININE) ([id number]), Sent on: Sent Future Order: Lab Order LIPID PA NEHEMIAH ([id number]), Sent on: Sent Future Order: Lab Order HEPATITI S C AB W/RFL RNA, PCR W/RFL GENOTYPE,LIPA ([id number]), Sent on: Sent Future Order: Lab Order CBC (INC LUDES DIFF/PLT) ([id number]), Sent on: Sent Future Order: Lab Order COMPREHE NSIVE METABOLIC PANEL ([id number]), Sent on: Sent Future Order: Lab Order HEMOGLOB IN A1C (496), Sent on: Sent Future Order: Lab Order CHLAMYDI A/NEISSERIA GONORRHOEAE RNA, TMA UROGENITAL ([id number]), Sent on: Sent Future Order: Lab Order HIV 1/2 ANTIGEN/ANTIBODY, FOURTH GEN W/ REFLEX ([id number]), Sent on: Sent Future Order: Lab Order HEPATITI S PANEL, ACUTE W/REFLEX ([id number]), Sent on: Sent Future Order: Lab Order LIPID PA NEHEMIAH ([id number]), Sent on: Sent Future Order: Lab Order RPR (DX) W/REFL TITER AND CONFIRMATORY TESTING ([id number]), Sent on: Sent Future Order: Lab Order [...] 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 He reports feeling tired due to the new work schedule, but is glad to be back working and having this structure and a paycheck. He recently had to move [facility] d/t an altercation with staff where a staff member felt threatened by Joesph prompting the move. He reports new house is fine, he has lived there previously, but is looking forward to providing PO his first paycheck which will allow him to move to transitional housing with private room.Joesph admits to inconsistent medication use, stating at previous [facility] they were more lenient about medications and so he stopped taking them at some time in February. He expresses some reluctance about taking medications regularly, but does not cite a specific reason other than disdain towards reliance on them- denies any concerning side effects. He does reflect that perhaps being off his medications contributed [facility] He denies any other anger [...] 1 month, sooner if necessary, by calling [facility] at [phone]. Chest congestion - Summary : Mr. Saldana presents for a follow-up visit to discuss diabetes management and new respiratory symptoms.- Chief Complaint (CC) : Persistent cough with sputum production following [place] [facility].- History of Present Illness : Mr. Saldana is a male patient with a history of diabetes who recently returned from [facility]. He reports developing an illness while incarcerated, which has led to persistent respiratory symptoms. The patient describes ongoing congestion and frequent sputum production throughout the day. He denies wheezing but confirms that he is a current smoker. The cough and sputum production have been continuous since his illness in [facility], causing concern about possible pneumonia. Mr. Saldana mentions that an x-ray was performed while he was in [facility], which reportedly showed no significant findings. The patient is currently residing in a senior care house. Medication Refill establish care Here for establi sh of care for PCP. Last had a PCP in 2019. PMHx: HTN, GERD, T2DM, anxiety, depression, PTSDPSHx: reports laparoscopy as infantNo family history of colon cancer, prostate cancer Social: - senior care house- smoking cigarettes 0.5ppd started in 20s - does not drink alcohol - used to smoking THC, also smoked crack cocaine - last purposeful use 2023- has family in area - brother, parents, has 3 daughters Had c-scope in 2023 - reports normal results EOC (establishment of care) Instructions Date Instruction Reynaldo benton Continue Chlorpromaz ine 50mg for impulsivity and [...]
--- OUTSIDE RECORDS SUMMARY | 2025-07-04 08:30 | XMS_ITS | Encounter Summary ---
Author Organization [employer] Address [address] [facility] [address] [place] [address] Care Team Providers Care Coverage Specialist Name Role Phone Marilee Cordero PHARMACEUTICAL ANALYST Primary Care Provider [phone] Cristo Garcia MD Unavailable Doris Candelario Unavailable [phone] Yoselyn Lyons Unavailable Unavailable Balbir Don Unavailable Lindsay NurD Unavailable [phone] Encounter Details Date Type Department Care Team (Late st Contact Info) Description 07/04/2025 8:30 AM EDT Office Visit [facility] [address], [place] [phone] Marilee Cordero FNP [address] [place], [place] [phone] Type 2 diabetes mellitus with hyperglycemia, with long-term current use of insulin ([facility]) (Primary Dx) Social History Tobacco Use Types [...] the past 12 months, has t he [employer], gas, oil or water company threatened to [...] Sign Reading Time Taken Comments Blood Pressure 164/84 07/04/2025 8:49 AM EDT Pulse 72 07/04/2025 8:49 AM EDT Temperature 36.4 C (97.6 F) 07/04/2025 8:49 AM EDT Respiratory Rate 20 07/04/2025 8:49 AM EDT Oxygen Saturation 97% 07/04/2025 8:49 AM EDT Inhaled Oxygen Concentration - - Weight 106 kg (232 lb 12.8 oz) 07/04/2025 8:49 A M EDT Height 182.9 cm (6') 07/04/2025 8:49 AM EDT Body Mass Index 31.57 07/04/2025 8:49 AM EDT documented in this encounter Patient Instructions * Patient Instructions* BRANDEN Patel - 07/04/2025 8:30 AM EDT Centralized Scheduling: para la conduccion de los nervios Lab Results Component Value Date HGBA1C 10.8 (A) 06/26/2025 documented in this encounter Plan of Treatment Upcoming Encounters Date Type Department Care Team (Late st Contact Info) Description 08/14/2025 1:30 PM EDT Medication Management [facility] [address] [place] [address] Lindsay Nur PharmD [address] [place] [address] Scheduled Orders Name Type Priority Associated Diagnoses Order Schedule POCT Glucose Point of Care Testing Routine Type 2 diabetes mellitus with hyperglycemia, with long-term current use of insulin (CMS/[facility]) Ordered: 07/04/2025 Lipid Panel, Standard Lab Routine Type 2 diabetes mellitus with hyperglycemia, with long-term current use of insulin (CMS/HCC) Expected: 07/04/2025 (Approximate), Expires: 07/04/2026 Albumin, Random Urine W/Creatinine Lab Routine Type 2 diabetes mellitus with hyperglycemia, with long-term current use of insulin (CMS/HCC) Expected: 07/04/2025 (Approximate), Expires: 07/04/2026 Methylmalonic Acid Lab Routine Type 2 diabetes mellitus with hyperglycemia, with long-term current use of insulin (CMS/HCC) Expected: 07/04/2025 (Approximate), Expires: 07/04/2026 Vitamin B12/Folate, Serum Panel Lab Routine Type 2 diabetes mellitus with hyperglycemia, with long-term current use of insulin (CMS/HCC) Expected: 07/04/2025, Expires: 07/04/2026 documented as of this encounter Visit Diagnoses Diagnosis Type 2 diabetes mellitus with hyperglycemia, with long-term current use of insulin (CMS/HCC)- Primary documented in this encounter Additional Health Concerns Assessment Noted Time PHQ-9 Depression Total Score: 13 03/2 025 8:59 AM EDT documented as of this encounter Care Teams Coverage Specialist Relationship Specialty Start Date End Date Marilee Cordero FNP [address] [place] [address] PCP - General Family Medicine 03/23/23 Cristo Garcia MD [address] [place] [address] [address] [place] [address] Rheumatology 09/01/24 Doris Candelario [address] [place] [address] Cardiology 09/01/24 Yoselyn Lyons [address] [place] [address] Ophthalmology 09/01/24 Balbir Don [address] [facility] [address] [place] [address] Sleep Medicine 09/01/24 Lindsay Nur PharmD [address] [place] [address] Pharmacist Pharmacy 05/29/25 Dr. Ramirez [address] [phone] Nephrology 09/01/24 documented as of this encounter
--- OUTSIDE RECORDS SUMMARY | 2025-07-04 10:58 | XMS_ITS | Clinical Summary ---
Author Organization [employer] Address [address] [place] [address] Care Team Providers Care Manufacturing Systems Engineer Name Role Phone Marilee Cordero BRANDEN Primary Care Provider [phone] Cristo Garcia MD Unavailable Doris Candelario Unavailable [phone] Yoselyn Lyons Unavailable Unavailable Balbir Don Unavailable Lindsay Nur PharmD Unavailable [phone] Allergies No known active allergies Medications Blood Pressure kit Use daily Active Blood Glucose Monitoring Suppl (FreeStyle [place] Lite) w/Device kit 1 each by Other route in the morning and at bedtime. 2 Active TRUEplus Lancets 33G misc TEST BLOOD SUGAR THREE TIMES DAILY 100 each 6 3 Active Additional Information Patient not taking.Reported on 03/18/2024 FREESTYLE LITE test strip TEST BLOOD SUGAR THREE TIMES DAILY 100 strip 6 3 Active folic acid (Folvite) 1 MG tablet Take 1 tablet by mouth in the morning. 3 Active insulin pen needle 32G x 5 mm miscIndications :Type 2 diabetes mellitus with hyperglycemia, with long-term current use of insulin ([facility]) Subcutaneous once daily use with lantus pen 100 each 3 3 Active gabapentin (Neurontin) 100 MG capsuleIndicati ons:Peripheral nerve disease TAKE 1 CAPSULE BY MOUTH EVERY EVENING (for nerve pain) 90 capsule 1 3 Active metFORMIN XR (Glucophage-XR) 500 MG 24 hr tabletIndicatio ns:Type 2 diabetes mellitus with hyperglycemia, with long-term current use of insulin (CMS/HCC) TAKE 1 TABLET BY MOUTH TWICE DAILY IN THE MORNING AND IN THE EVENING WITH MEALS 180 tablet 1 4 Active Lantus SoloStar 100 UNIT/ML penIndications: Type 2 diabetes mellitus with hyperglycemia, with long-term current use of insulin (CMS/HCC) Inject 10 Units under the skin at bedtime. 15 mL 3 4 Active atorvastatin (Lipitor) 40 MG tabletIndicatio ns:Congestive heart failure, unspecified HF chronicity, unspecified heart failure type (CMS/HCC) Take 1 tablet (40 mg) by mouth at bedtime. 90 tablet 1 4 Active acetaminophen (Tylenol) 500 MG tablet Take 1 tablet (500 mg) by mouth every 6 (six) hours if needed for mild pain for up to 20 doses. 20 tablet 4 Active carvedilol (Coreg) 6.25 MG tablet Take 6.25 mg by mouth with breakfast and with evening meal. 4 Active Taltz 80 MG/ML injection 4 Active furosemide (Lasix) 40 MG tablet Take 2 tablets by mouth 2 times daily. Active tamsulosin (Flomax) 0.4 MG 24 hr capsuleIndicati ons:Benign prostatic hyperplasia, unspecified whether lower urinary tract symptoms present TAKE 1 CAPSULE BY MOUTH EVERY EVENING (1/2 HOUR AFTER MEALS) 90 capsule 1 4 Active Aspirin EC Adult Low Dose 81 MG EC tabletIndicatio ns:Congestive heart failure, unspecified HF chronicity, unspecified heart failure type (CMS/HCC) TAKE 1 TABLET BY MOUTH EVERY MORNING 90 tablet 1 5 Active Entresto 49-51 MG tablet Take 1 tablet by mouth 2 times daily. 5 Active Dulaglutide (Trulicity) 1.5 MG/0.5ML solution auto-injector Inject 1.5 mg under the skin 1 (one) time per week. 2 mL 1 5 Active empagliflozin (Jardiance) 25 MG Take 1 tablet (25 mg) by mouth Once per day. 90 tablet 3 5 Active spironolactone (Aldactone) 25 MG tablet 5 Active Active Problems Problem Noted Date Diagnosed Date Hematuria 04/29/2025 Assessment & Plan (04/29/2025 8:42 AM EDT): Hematuria noted on point of care UA, confirmed with send out Following with [facility] Urology Diabetic polyneuropathy asso ciated with type 2 diabetes mellitus 04/29/2025 Assessment & Plan (04/29/2025 8:52 AM EDT): Decreased sensation from mid-calf BLE distally Monofilament exam March 2025: sensation at 0/7 sites tested bilaterally Cont gabapentin 100mg daily, plan to likely inc dose in future Referral to podiatry placed 04/29/25 No NCS/EMG on file, pt denies completing in the past. NCS/EMG order placed for BLE Proteinuria 09/01/2024 Overview (09/01/2024): Followed by [facility] - Dr. James Hogan 10mg daily Psoriatic arthritis 08/30/2024 Overview (04/01/2025): Followed by [facility] Rheum - Dr. Garcia Med therapy: DMARD ([place]) Previous tx: methotrexate and Enbrel (hx of failed Humira tx in Rheum note 02/04/21). Plan to hold methotrexate with hx cardiac conditions Assessment & Plan (09/01/2024 1:13 PM EST): Plan to start first dose on 09/01/24 Impacted third molar tooth 03/18/2024 Severe dental caries 03/18/2024 Non-restorable tooth 03/18/2024 Congestive heart failure 11/26/2023 Overview (04/01/2025): Previously following with [facility], although interested in seeking consult at [facility]. Jul 2023: Nuclear stress test: Negative ECG portion of the stress test. Myocardial perfusion imaging is normal with no evidence or fixed or reversible perfusion defects. Moderately reduced global LV function with resting left ventricular EF of 33%, and post stress LVEF 36%. LV size moderately dilated. No evidence of transient ischemic dilation. March 2024: EF 35-40% TTE 03/12/2025 during hospitalization: EF 45-50% Hospitalization for CHF exacerbation: Oct 2023 at [facility] - Reviewed condition and concerning signs/symptoms - Cont med regimen below: Aspirin 81mg daily Atorvastatin 40mg nightly Furosemide 40mg BID (RX nephrology) Jardiance 10mg daily Carvedilol 6.25mg BID Entresto 24-26mg BID Assessment & Plan (04/01/2025 7:07 PM EDT): Follow-up with [facility] as scheduled in April 2025. Reports they are already on wait list in case anything sooner becomes available. Assessment & Plan (01/27/2025 9:50 AM EDT): Cont current therapy, symptomatic SOB/BELL Referral to [facility] for further eval Assessment & Plan (09/01/2024 [...] BMP ordered Mitral regurgitation 08/13/2023 Overview (08/13/2023): 08/03/23: DEV by Dr. Alvarez. Left ventricular [...] long-term current use of insulin 10/17/2022 Overview (07/04/2025): Lab Results Component Value Date HGBA1C 10.8 (A) 06/26/2025 HGBA1C 10.8 (A) 03/31/2025 HGBA1C 10.9 (A) 01/27/2025 HGBA1C 12.7 (A) 08/30/2024 HGBA1C 6.8 (A) 02/26/2024 HGBA1C 7.4 (H) 04/27/2022 HGBA1C 12.0 (H) [...] normal limits, following with renal for proteinuria -[facility] CDTM referral on 04/29/25 Assessment & Plan (04/01/2025 7:01 PM EDT): - Initial BG reading HH. Repeat value [facility] s/p 10 units lispro. Re-check #3 resulted 436 s/p second dose of 10 units insulin lispro. Pt unable to void for UA. Discussed ED precautions. - Previous rx of Jardiance 10mg daily (rx through [facility] - unclear if currently taking) - No recent home readings for review - I strongly recommended CDTM referral, but he declined - Agrees to increase to lantus 12 units nightly. Encouraged to record home BG readings and bring to follow up. Target values reviewed. ED precautions reviewed. Assessment & Plan (01/27/2025 9:45 AM EDT): [...] like to prioritize lifestyle interventions. Med regimen: Continue Lantus 20 units at bedtime Continue metformin 500mg BID Continue Trulicity 4.5mg subcutaneous weekly -Denies red flag symptoms, ED precautions reviewed Assessment & Plan (08/13/2023 9:11 AM EDT): Lab Results Component Value Date HGBA1C 13.5 (A) 08/11/2023 -BG initially [facility] in office, continued to be [facility] s/p 10 units lispro subcutaneous. After 2nd admin of 10 units lispro, BG 437. UA neg for ketones -Not well controlled, although pt declines addition of new medication at this time. In agreement to increase lantus Med regimen: Increase Lantus to 20 units at bedtime, reviewed med safety and SE Continue metformin 500mg BID Continue Trulicity 4.5mg [...] lifestyle interventions. Continue with current med regimen: Lantus 10 units at bedtime, reviewed med safety and SE Continue metformin 500mg BID Continue Trulicity 4.5mg [...] edema 06/30/2022 Overview (09/01/2024): Followed by [facility] Proliferative diabetic retin opathy associated with type 2 diabetes mellitus 06/30/2022 Overview (09/01/2024): Followed by [facility] April 2024: eval for sudden vision loss and pain OS Plan: Avastin injections Benign prostatic hyperplasia 02/26/2015 Overview (08/13/2023): Continues with tamsulosin 0.4mg daily Reports symptoms well controlled Mixed anxiety and depressive disorder 03/13/2013 Hyperlipidemia 01/25/2013 Allergic rhinitis 08/14/2012 Asthma 08/14/2012 Gastroesophageal reflux disease 08/14/2012 Psoriasis 08/14/2012 Assessment & Plan (01/27/2025 9:46 AM EDT): -Previous tx with methotrexate and Enbrel (hx of failed Humira tx in Rheum note 02/04/21) -Re-established with [facility] Rheum Nov 2021, last consult appt December 2023 Plan to hold methotrexate with hx cardiac conditions Taltz injections through Rheum with notable improvement Assessment & Plan (03/03/2024 2:42 PM EDT): -Previous tx with methotrexate and Enbrel (hx of failed Humira tx in Rheum note 02/04/21) -Re-established with [facility] Rheum Nov 2021, last consult appt December 2023 Plan to hold methotrexate with hx cardiac conditions Authorization for Taltz is pending Assessment & Plan (08/11/2023 1:16 PM EDT): -Previous tx with methotrexate and Enbrel (hx of failed Humira tx in Rheum note 02/04/21) -Re-established with [facility] Rheum Nov 2021 Says may have re-started on methotrexate but unsure. Will bring med list to next appt. -Pt was also referred to [facility] Derm Team, appt pending Assessment & Plan (04/12/2023 1:37 PM EDT): -Previous tx with methotrexate and Enbrel (hx of failed Humira tx in Rheum note 02/04/21) -Re-established with [facility] Rheum Nov 2021 Says may have re-started on methotrexate but unsure. Will bring med list to next appt. -Pt was also referred to [facility] Derm Team, appt pending Assessment & Plan (10/20/2022 9:18 AM EST): -Previous tx with methotrexate and Enbrel (hx of failed Humira tx in Rheum note 02/04/21) -Reports has not been taking any meddications for psoriasis in > 6 month, interested in re-establishing with specialists -Upcoming appt with [facility] Rheum Nov 2021 -Pt was also referred to [facility] Derm Team, appt pending Hypertension 06/13/2012 [...] apnea syndrome 06/13/2012 Overview (09/01/2024): Following with [facility] - Dr. Balbir Don Cont w/ CPAP, need updated titration report (home sleep study ordered Jul 2024 per specialist) Assessment & Plan (08/13/2023 8:36 AM EDT): Continues with CPAP nightly Due for settings adjustment, and also reporting intermittent discomfort with mask Referral to [facility] Sleep Medicine for further eval and management Resolved Problems Problem Noted Date Diagnosed Date Resolved Date Retention of urine 02/26/2015 3 Elevated levels of transamin ase & lactic acid dehydrogenase 08/14/2012 10/20/2022 Encounters Date Type Department Care Team Description 07/04/2025 8:30 AM EDT Office Visit [facility] MED & PEDS [address] [place] [address] Marilee Cordero, BRANDEN Type 2 diabetes mellitus with hyperglycemia, with long-term current use of insulin ([facility]) (Primary Dx) 07/04/2025 Travel 07/03/2025 Telephone [facility] MED & PEDS [address] [place] [address] Marilee Cordero FNP chart prep 06/26/2025 Travel 05/29/2025 Travel 04/30/2025 Telephone [facility] MEDICINE [address] [place] [phone] Marilee Cordero FNP Call Back Request 04/29/2025 Telephone [facility] MEDICINE [address] [place] [address] Marilee Cordero FNP 04/29/2025 Telephone [facility] MED & PEDS [address] [place], [place] [phone] Marilee Cordero FNP DME: COLIN DYE 04/28/2025 9:00 AM EDT Office Visit [facility] MED & PEDS [address] [place] [address] Marilee Cordero FNP Type 2 diabetes mellitus with hyperglycemia, with long-term current use of insulin (CMS/HCC) (Primary Dx); Hematuria, unspecified type; Peripheral nerve disease; Diabetic polyneuropathy associated with type 2 diabetes mellitus (CMS/HCC); Numbness and tingling of right arm; Onychauxis; Abscess of right lower extremity; Bilateral foot-drop 04/28/2025 Orders Only GENERIC EXTERNAL DATA DEPARTMENT Provider, Generic External Data 04/28/2025 Travel from Last 3 Months Immunizations Immunization Administration Dates Next Due Hep A, ped/adol, 2 dose 09/27/2005,03/24/2005 Hep B, Adolescent or Pediatric 09/27/2005,2004,03/24/2005 Influenza injectable quadriv alent IIV4 with preservative 09/28/2016 Influenza injectable quadriv alent preservative free 08/11/2023,10/17/2022,09/17/2019 Influenza, IIV3, injectable 08/12/2014, 1 Influenza, Split (incl. shawna fied surface antigen) 07/09/2013,08/14/2012 Influenza, seasonal, injecta ble, preservative free 08/30/2024 Moderna Covid-19 Vaccine 12+ 01/14/2022,03/03/20 21,02/03/2021 Pneumococcal Conjugate PCV 13 06/28/2018 Pneumococcal Conjugate PCV 20 03/31/2025 Pneumococcal Polysaccharide PPSV23 09/30/2008 TD (adult), 2 [...] Mass Index 31.57 07/04/2025 8:49 AM EDT Plan of Treatment Upcoming Encounters Date Type Department Care Team (Late st Contact Info) Description 08/14/2025 1:30 PM EDT Medication Management [facility] MED & PEDS [address] [place] [address] Lindsay Nur, PharmD [address] [place] [address] Health Maintenance Due Date Last Done Comments CT Colonography 1970 Colonoscopy 1970 Colorectal Cancer Screening 1970 FIT DNA/Cologuard 1970 FIT 1970 FOBT 1970 Sigmoidoscopy 1970 Eye Exam 1980 Hepatitis B Vaccines (1 of 3 - 19+ 3-dose series) 1989 09/27/2005, 05/31/2005, 03/24/2005 Dental Prophylaxis 11/10/2012 05/09/2012, 0 12/13/2011, 07/22/2009 Dental Oral Exam 07/11/2014 01/07/2014 Dental X-Ray: Bitewings 08/12/2024 08/11/20, 01/07/2014, 10/01/2010, Additional history exists Lipid Panel 09/13/2024 09/13/2023, 03/31, 01/26/2022 Diabetes: Urine Protein Screening 12/25/2024 12/25/2023, 09/13/2023, 01/26/2022, Additional history exists COVID-19 Vaccine ( season) 2025 01/14/2022, 03/03/2021, 02/03/2021 Influenza Vaccine (#1) 2025 , 08/11/2023, 10/17/2022, Additional history exists Depression Monitoring 07/29/2025 01/27/2025, 025 SDOH Screening 08/30/2025 08/30/2024 Diabetes: Hemoglobin A1C 09/26/2025 025, 03/31/2025, 01/27/2025, Additional history exists Tobacco Screening 03/05/2026 03/05/2025 Alcohol/Substance Use Screening 04/28/2026 04/28/2025 Disability Screening 04/28/2026 04/28/2025 Diabetes: Foot Exam 07/04/2026 07/04/2025, 07/04/2025, 04/28/2025, Additional history exists Dental X-Ray: Full Mouth 03/19/2027 03/18/2024, 07/01 [...] Screening Completed 09/13/2023 Hepatitis C Screening Completed 02/26/2025 , 09/13/2023, 12/01/2022 Pneumococcal Vaccine: 50+ Years Completed 03/31/2025, 06/28/2018, 09/30/2008 HIB Vaccines Aged Out No longer eligi [...] Name Priority Date/Time Associated Diagnosis Comments POCT GLYCATED HEMOGLOBIN, TOTAL Routine 06/26/2025 1:35 PM EDT Type 2 diabetes mellitus with hyperglycemia, with long-term current use of insulin ([facility]) CYTOPATH-CELL ENHANCED Routine 04/28/2025 3:00 PM EDT URINALYSIS, COMPLETE Routine 04/28/2025 10:10 AM EDT Hematuria, unspecified type POCT URINALYSIS DIPSTICK Routine 04/28/2025 9:45 AM EDT Type 2 diabetes mellitus with hyperglycemia, with long-term current use of insulin ([facility]/HCC) POCT GLUCOSE Routine 04/28/2025 9:32 AM EDT Type 2 diabetes mellitus with hyperglycemia, with long-term current use of insulin (CMS/[facility]) HEPATITIS PANEL, GENERAL Routine 02/26/2025 7:32 AM EDT PANORAMIC RADIOGRAPHIC IMAGE Routine 03/18/2024 9:00 AM EDT ALBUMIN, RANDOM URINE W/CREATININE Routine 12/25/2023 9:50 AM EST Type 2 diabetes mellitus with hyperglycemia, with long-term current use of insulin ([facility]/H[facility]) HIV 1/2 ANTIGEN/ANTIBODY, FOURTH GENERATION W/RFL Routine [...] to Health Maintenance Results * (ABNORMAL) POCT A1c (06/26/2025 1:35 PM EDT) Hemoglobin A1C 10.8(A) 4.0 - 5.7 % QC Media Lot # [id number] Lot# Expiration Date ,799,200 Blood 06/26/2025 1:35 PM EDT Marilee Hortensianew BENDING ROLL OPERATOR POINT OF CARE TEST ENTER/EDIT ORDERABLES Final Result * Cytopath-cell enhanced (04/28/2025 3:00 PM EDT) 04/28/2025 3:00 PM EDT 04/29/2025 8:40 AM EDT Narrative LABS - 04/29/2025 1:59 PM EDT ----- ------- Name: Joesph Saldana Age/Sex: 54/M : 1970 Unit#: [id number] Attend Dr: Malvin Cramer MD Re04/28/25 Status: DEP REF Location: .LAB Disch: ----- ------- SPEC : [id number] RECD: 04/29/25 STATUS: JANET POWELL NUM: [id number] JUDITH: 04/28/25-[address]: Malvin Cramer MD ENTERED: 04/29/25 SP TYPE: Cytology OTHR DR: Marilee Cordero ORDERED: Cyto-enhanced Diagnosis Urine: Negative for high-grade urothelial carcinoma. See comment. COMMENT: Paucicellular specimen consisting of a few small groups of urothelial cells, which are small/medium in size and have variable chromatin. The background has single urothelial cells with degenerative changes, red blood cells and chronic inflammatory cells. The differential diagnosis for these types of groups of urothelial cells includes infection, trauma (e.g. stones) and other types of urothelial neoplasms. Clinical History Gross hematuria Material Received Urine Gross Description Received is 60 cc of clear yellow fluid from which a ThinPrep slide is prepared. IHC S/NG Disclaimer NOTE: Unless otherwise stated, all tissue is formalin-fixed and paraffin-embedded. Some or all of the immunohistochemical tests reported herein may have been developed and their performance characteristics determined by [facility]. They have not been cleared or approved by the U.S. Food and Drug Administration (FDA). However, the FDA has determined that such clearance or approval is not necessary. This laboratory is certified under the Clinical Laboratory Improvement Amendments of 1988 (CLIA) as qualified to perform high complexity clinical laboratory testing. Copies To: Malvin Cramer MD [facility] Urology Services [address] [place] [address] Dr. Lin [address] [place], [place] [id number] [email or web address] Marilee Cordero [address] [place] [address] CONTINUED ON NEXT PAGE ----- ------- Name: Joesph Saldana Age/Sex: 54/M : 1970 Unit#: [id number] Attend Dr: Malvin Cramer MD Re04/28/25 Status: DEP REF Location: [facility] Disch: ----- ------- SPEC : [id number] RECD: 04/29/25 STATUS: JANET POWELL NUM: [id number] JUDITH: 04/28/25-[address] [facility] [address]: Malvin Cramer MD ENTERED: 04/29/25 SP TYPE: Cytology OTHR DR: Marilee Cordero ORDERED: Cyto-enhanced ----- ------- Signed (signature on file) Bradly See MD 04/29/25 1359 ----- ------- END OF REPORT Generic External Data Provider LAB CYTOLOGY YAZ JUAREZ Final Result Performing Organization Address [facility]/ZIP Co de Phone Number LABS [address] [place], [place] [phone] * (ABNORMAL) Urinalysis Complete (04/28/2025 10:10 AM EDT) Color Urine Yellow LABS Appearance Urine Clear LABS PH 5.5 5.0 - 9.0 LABS Glucose Urine UA >=1000(A) Negative mg/dL LABS Urine Blood Small (1+)(A) Negative LABS Specific [place] - Urine 1.020 1.005 - 1.025 LABS Urine Protein 300 (3+)(A) Neg-Trace mg/dL LABS Urine Ketones Negative Negative mg/dL LABS Nitrite Urine Negative Negative [facility] Leukocyte Esterase Urine Negative Negative LABS RBC Urine 3-5(A) 0 - 2 /HPF LABS Urine WBC 0-5 0 - 5 /HPF LABS Urine Squamous Epithelial Cell 0-2 0 - 2 /HPF LABS Urine Bacteria None Seen None Seen [facility] LABS Hyaline Casts, Urine 3-5 0 - 2 /LPF LABS GRANULAR CASTS (#/HPF) IN URINE Present LABS Urine (Urine, Random) 04/28/2025 10:10 AM EDT 04/28/2025 5:57 PM EDT us Marilee Cordero BENDING ROLL OPERATOR LAB URINE ORDERABLES Final Res ult Performing Organization Address [facility] Co de Phone Number LABS [address] [place], [place] [phone] * (ABNORMAL) POCT Urinalysis (04/28/2025 9:45 [...] # [phone],[id number] Urine 04/28/2025 9:45 AM EDT Marilee [facility] POINT OF CARE TEST ENTER/EDIT ORDERABLES Final Result * (ABNORMAL) POCT Glucose (04/28/2025 9:32 AM EDT) Glucose Blood, POC 384(A) 60 - 200 mg/dL Blood Capillary blood specimen / Unknown 04/28/2025 9:32 AM EDT Critical access hospital POINT OF CARE TEST ENTER/EDIT ORDERABLES Final Result * Hepatitis Panel, General (02/26/2025 7:32 AM EDT) Pathologist [facility] Hepatitis A IgM Nonreactive Nonreactive LABS Comment:IgM antibodies to GIBSON V not detected; does not exclude earlyacute or recovered HAV infection. ~Hepatitis B Surface Antibody NONREACTIVE Nonreactive LABS Comment:Nonreactive: < 8.00 mIU/mL Hepatitis B Core Antibody Nonreactive Nonreactive LABS Hepatitis C Antibody Nonreactive Nonreactive LABS Comment:Antibodies to HCV no t detected; does not exclude early acuteHCV infection. Hepatitis B Surface Ag Negative Negative LABS 02/26/2025 7:32 AM EDT 02/26/2025 7:32 AM EDT Generic External Data Provider LAB BLOOD ORDERAB LES Final Result LABS [address] [place] [phone] * (ABNORMAL) Albumin, Random Urine W/Creatinine (12/25/2023 9:50 AM EST) Creatinine, Urine 162.10 mg/dL [facility] LABS Microalbumin Urine >2,000.0 mg/L H [facility] LABS Microalbum Creatinine Ratio Ur 1,233.8(H ) <30 ug/mg cr LABS Comment:Albumin/Creatinine R atio Reference Ranges: Normal: < 30 ug/mg creatinine Microalbuminuria: 30 - 300 ug/mg creatinineClinical Albuminuria: > 300 ug/mg creatinine Urine 12/25/2023 9:50 AM EST 12/25/2023 2:38 PM EST Marilee Cordero [facility] LAB URINE ORDERABLES Final Res ult LABS [address] [place] [phone] * HIV-1/2 Antigen and Antibodies, Fourth Generation, with Reflexes (09/13/2023 7:53 AM EST) HIV AB/AG Nonreactive Nonreactive [facility] LABS Comment:HIV-1 p24 Ag and/or HIV-1/HIV-2 Ab not detected.A test result that is nonreactive does not exclude thepossibility of exposure to or infection with HIV-1 and/orHIV-2. Nonreactive results in this assay for individualswith prior exposure to HIV-1 and/or HIV-2 may be due toantigen and antibody levels that are below the limit ofdetection of this assay.The AfterSteps HIV Ag/Ab Combo assay result andsupplemental assay results should be interpreted inconjunction with the patient's clinical presentation,history and other laboratory results. If the results areinconsistent with clinical evidence, additional testing issuggested to confirm the result. Blood Venous blood specimen / Unknown 09/13/2023 7:53 AM EST 09/13/2023 7:53 AM EST us Marilee Cordero [facility] LAB BLOOD ORDERABLES Final Res ult Performing Organization Address [facility] Co de Phone Number LABS [address] [place] [address] [phone] * (ABNORMAL) Lipid Panel, Standard (09/13/2023 7:53 AM EST) Triglycerides 122 <150 mg/dL [facility] LABS Comment:Desirable Triglyceri de: less than 150 mg/dLBorderline High Triglyceride 150-199 mg/dLHigh Triglyceride: 200-499 mg/dLVery High Triglyceride: greater than or equal to 5OO mg/dL Cholesterol 149 <200 mg/dL LABS Comment:Desirable Cholestero l: less than 200 mg/dLBorderline High Cholesterol: 200-239 mg/dLHigh Cholesterol: greater than 239 mg/dL LDL Cholesterol Calculated 97 <100 mg/dL LABS Comment:Desirable LDL: less than 100 mg/dLNear Optimal/Above Optimal LDL: 110- 129 mg/dLBorderline High LDL: 130-159 mg/dLHigh LDL: 160-189 mg/dLVery High LDL: greater than or equal to 190 mg/dL HDL Cholesterol 28(L) >40 mg/dL [facility] LAB[facility] Comment:Desirable HDL: great er than 40 mg/dL Note: This HDL assay may give artificially low results in patients with liver disease. Blood Venous blood specimen / Unknown 09/13/2023 7:53 AM EST 09/13/2023 7:53 AM EST Marilee Cordero [facility] BLOOD ORDERABLES Final Res ult Performing Organization Address [facility] Co de Phone Number LABS [address] [place] [address] [phone] from Last 3 Months or Most Recently Relevant to Health Maintenance Insurance [facility] DENTAL - HSN PARTIAL (MEDICAID) Care Teams Manufacturing Systems Engineer Relationship Specialty Start Date End Date Marilee Cordero FNP [address] [place] [address] PCP - General Family Medicine 03/23/23 Cristo Garcia MD [address] [place] [address] Rheumatology 09/01/24 Doris Candelario [address] [place] [address] Cardiology 09/01/24 Yoselyn Lyons [address] [place] [address] Ophthalmology 09/01/24 Balbir Don [address] [address] Sleep Medicine 09/01/24 Lindsay Nur, Charisse [address] [place] [address] Pharmacist Pharmacy 05/29/25 Dr. Ramirez [address] [place] [id number] Nephrology 09/01/24
--- OUTSIDE RECORDS SUMMARY | 2025-07-04 10:58 | XMS_ITS | Encounter Summary ---
Author Organization [employer] Address [address] [facility] 7t [place] [address] Care Team Providers Care Optical Sales Associate Name Role Phone Marilee Cordero SOLUTIONS ARCHITECT CONSULTANT Primary Care Provider [phone] Cristo Garcia MD Unavailable Doris Candelario Unavailable [phone] Yoselyn Lyons Unavailable Unavailable Balbir Don Unavailable Lindsay NurD Unavailable [phone] Encounter Details Date Type Department Care Team (Latest Contact Info) Description 07/04/2025 Travel Social History Tobacco Use Types Packs/Day [...] SYSTEM - [facility] [address] [place] [address] Lindsay Nur PharmD [address] [place] [address] documented as of this encounter Visit Diagnoses Not on filedocumented in this encounter Additional Health Concerns Assessment Noted Time PHQ-9 Depression Total Score: 13 025 8:59 AM EDT documented as of this encounter Care Teams Optical Sales Associate Relationship Specialty Start Date End Date Marilee Cordero FNP [address] [place] [address] PCP - General Family Medicine 03/23/23 Cristo Garcia MD [address] [place] [address] [place] [address] Rheumatology 09/01/24 Doris Candelario [address] [place] [address] Cardiology 09/01/24 Yoselyn Lyons [address] [place] [address] Ophthalmology 09/01/24 Balbir Don 22 [facility] [address] [place] [address] Sleep Medicine 09/01/24 Lindsay Nur, Charisse [address] [place] [address] Pharmacist Pharmacy 05/29/25 Dr. Ramirez [address] [place] [address] [address] [place] [address] Nephrology 09/01/24 documented as of this encounter
--- OUTSIDE RECORDS SUMMARY | 2025-07-04 10:58 | XMS_ITS | Encounter Summary ---
Author Organization [employer] Address 75 [facility] 7t [place] [address] Care Team Providers Care Chief Of Anesthesiology Name Role Phone Marilee Cordero TELEPHONE APPOINTMENT CLERK Primary Care Provider Cristo Garcia MD Unavailable Doris Candelario Unavailable [phone] Yoselyn Lyons Unavailable Unavailable Balbir Don Unavailable Lindsay NurD Unavailable [phone] Encounter Details Date Type Department Care Team (Late st Contact Info) Description 08/11/2023 Abstract [facility] [address] [place], [place] [phone] Gavino Lacey, DIANA [address] [place], [place] [phone] Social History Tobacco Use Types Packs/Day Years [...] Description 08/14/2025 1:30 PM EDT Medication Management [facility] [address] [place] [address] Lindsay Nur PharmD [address] [place] [address] documented as of this encounter Visit Diagnoses Not on filedocumented in this encounter Additional Health Concerns Assessment Noted Time PHQ-9 Depression Total Score: 1 10/17/20 22 10:05 AM EST documented as of this encounter Care Teams Chief Of Anesthesiology Relationship Specialty Start Date End Date Marilee Cordero FNP [address] [place] [address] PCP - General Family Medicine 03/23/23 Cristo Garcia MD [address] [place] [address] [place] [address] Rheumatology 09/01/24 Doris Candelario [address] [place] [address] Cardiology 09/01/24 Yoselyn Lyons [address] [place] [address] Ophthalmology 09/01/24 Balbir Don 22 [facility] 301 [place] [address] Sleep Medicine 09/01/24 Lindsay Nur, Charisse [address] [place] [address] Pharmacist Pharmacy 05/29/25 Dr. Ramirez 100 [facility] [address] [place] [address] Nephrology 09/01/24 [facility] 03/18/25 05/04/25 documented as of this encounter
--- OUTSIDE RECORDS SUMMARY | 2025-07-04 10:59 | XMS_ITS | Clinical Summary ---
Author Organization [facility] Address [address] [address] Phone Care Team Providers Care Business School Dean Name Role Phone Marilee Cordero BRANDEN Primary Care Provider [phone] Allergies No known active allergies Medications amLODIPine [...] Followed by [facility] - Dr. Maturostrakul Jardiance 10mg daily Congestive heart failure 11/26/2023 Overview (04/03/2024): Following with [facility] Jul 2023: Nuclear stress test: Negative ECG portion of the stress test. Myocardial perfusion imaging is normal with no evidence or fixed or reversible perfusion defects. Moderately reduced global LV function? with resting left ventricular EF of 33%, and post stress LVEF 36%. LV size moderately dilated. No evidence of transient ischemic dilation. Hospitalization for CHF exacerbation: Oct 2023 at [facility] Last Assessment & Plan: - [...] Psoriatic arthritis 06/04/2012 Overview (03/26/2025): Followed by [facility] Rheum - Dr. Garcia Med therapy: DMARD, Derik Previous tx: methotrexate and Enbrel (hx of failed Humira tx in Rheum note 02/04/21). Plan to hold methotrexate with hx cardiac conditions Obstructive sleep apnea syndrome 06/04/2012 Overview (03/26/2025): [facility] - Dr. Balbir Don Cont w/ CPAP, [...] to 49 Years) Discontinued 06/28/2018, 09/30/2008 Insurance [employer] [facility] ([id number]) [employer] [facility] ([id number]) Care Teams Business School Dean Relationship Specialty Start Date End Date Marilee Cordero FNP [address] [place] [address] PCP - General 01/08/24
--- OUTSIDE RECORDS SUMMARY | 2025-07-04 10:59 | XMS_ITS | Encounter Summary ---
Author Organization [facility] Address [address] [place] [address] [address] [place] [address] Care Team Providers Care Information Assurance Engineer Name Role Phone Marilee Cordero Primary Care Provider [phone] Cristo Garcia MD Unavailable Doris Candelario Unavailable [phone] Yoselyn Lyons Unavailable Unavailable Balbir Don Unavailable Lindsay Nur PharmD Unavailable [phone] Reason for Referral * Consultation (Routine) - Closed Specialty Diagnoses / Procedures Referred By Contac t Referred To Contact Nephrology Diagnoses Albuminuria Marilee Cordero FNP [address] [place] [address] Phone: tel: fax: Bayron Marshall MD 100 [facility] 200 [place] [address] Phone: tel: fax: Referral ID Status Reason Start Date Expiration Date V isits Requested Visits Authorized [id number] Closed Specialty Services Required 12/29/2023 12/28/2024 1 1 Encounter Details Date Type Department Care Team (Late st Contact Info) Description 12/29/2023 Orders Only [facility] [address] [place], [place] [phone] Marilee Cordero FNP [address] [place], [place] [phone] Albuminuria (Primary Dx) Social History Tobacco Use [...] Description 08/14/2025 1:30 PM EDT Medication Management [facility] [address] [place] [address] Lindsay Nur, PharmD [address] [place], [place] [phone] documented as of this encounter Procedures Procedure [...] documented as of this encounter Care Teams Information Assurance Engineer Relationship Specialty Start Date End Date Marilee Cordero FNP [address] [place] [address] PCP - General Family Medicine 03/23/23 Cristo Garcia MD [address] [place] [address] [address] [place] [address] Rheumatology 09/01/24 Doris Candelario [address] [place] [address] Cardiology 09/01/24 Yoselyn Lyons [address] [place] [address] Ophthalmology 09/01/24 Balbir Don 22 [facility] 301 [place] [address] Sleep Medicine 09/01/24 Lindsay Nur PharmD [address] [place] [address] Pharmacist Pharmacy 05/29/25 Dr. Ramirez 100 [facility] 200 [place] [address] Nephrology 09/01/24 [facility] 03/18/25 05/04/25 documented as of this encounter
--- OUTSIDE RECORDS SUMMARY | 2025-07-04 10:59 | XMS_ITS | Clinical Summary ---
Author Organization [facility] [place] [address] Phone Care Team Providers Care Planning Analyst Name Role Phone Physician, Pcp Unknown Primary Care Provider Ana Laura vailable Allergies No known active allergies Medications aspirin 81 mg EC tablet Take 1 tablet (81 mg total) by mouth 1 (one) time each day. 3 Active carvediloL (COREG) 6.25 mg tablet Take 1 tablet (6.25 mg total) by mouth 2 (two) times a day with meals. 4 Active Jardiance 10 mg tablet Take 2.5 tablets (25 mg total) by mouth daily. 4 Active furosemide (LASIX) 40 mg tablet 2 tablets (80 mg total) 2 (two) times a day. Active metFORMIN (GLUCOPHAGE) 500 mg tablet Take 1 tablet (500 mg total) by mouth 2 (two) times a day with meals. 4 Active Entresto 49-51 mg per tablet Take 1 tablet by mouth 2 times daily. 5 Active spironolactone (ALDACTONE) 25 mg tablet Take 1 tablet (25 mg total) by mouth 1 (one) time each day. 5 Active insulin glargine (Lantus U-100 Insulin) 100 unit/mL injection Inject 25 Units under the skin at bedtime. 4 Active atorvastatin (LIPITOR) 40 mg tablet Take 1 tablet (40 mg total) by mouth at bedtime. 4 06/06/20 25 Discontinued Entresto 24-26 mg per tablet Take 1 tablet by mouth 2 times daily. 4 06/06/20 25 Discontinued tamsulosin (FLOMAX) 0.4 mg 24 hr capsule Take 1 capsule (0.4 mg total) by mouth 1 (one) time each day with dinner. 3 06/06/20 25 Discontinued Active Problems Problem Noted Date Diagnosed Date Acute respiratory failure wi th hypoxia ([facility] V24, [facility] V28) 06/06/2025 Hypoxia 02/15/2025 Encounters Date Type Department Care Team Description 06/06/2025 9:52 AM EDT - 06/07/2025 2:36 PM EDT Hospital Encounter [facility] [address] [place] [address] Bayron Hester MD Shapiro, Benjamin, DO Kela, Kashyap Devendrabhai, MD Dyspnea, unspecified type (Primary Dx) Discharge Disposition: Home or Self Care from [...] 06/04/2012 DX:DM2 (diabetes mellitus, t ype 2) ([facility]) Obstructive sleep apnea 06/04/2012 DX:Obstr uctive sleep apnea Psoriatic arthritis ([facility] V24, [facility] V28) 06/04/2012 DX:Psoriatic arthritis ([facility]) Hyperlipidemia 06/04/2012 DX:Hyperlipidemi a; COMMENT: IMO update [...] Heart attack Other cousins with fa [place] 40's Asthma Sister Relation Name Status Comments Aunt Father Grandparent Mother Other Sister Social History Tobacco Use Types Packs/Day Years Used Date Smoking Tobacco: Never Smokeless Tobacco: Never Alcohol Use Standard Drinks/Week Comments Never 0 (1 standard drink = 0.6 oz pur e alcohol) Interpersonal Safety Answer Date Record ed Physical Abuse 06/06/2025 Verbal Abuse 06/06/2025 Sex and Gender Information Value Date Recorded Sex Assigned at Not on file Legal Sex Male 6:15 PM EST Gender Identity Not on file Sexual Orientation Not on file Obstetrics History Last Filed Vital Signs Vital Sign Reading Time Taken Comments Blood Pressure 110/73 06/07/2025 11:42 AM EDT Pulse 63 06/07/2025 11:42 AM EDT Temperature 36.4 C (97.5 F) 06/07/2025 11:42 AM EDT Respiratory Rate 18 06/07/2025 11:42 AM EDT Oxygen Saturation 94% 06/07/2025 11:42 AM EDT Inhaled Oxygen Concentration - - Weight 100 kg (221 lb 8 oz) 06/07/2025 4:14 AM E DT Height 182.9 cm (6') 06/06/2025 9:58 AM EDT Body Mass Index 30.04 06/06/2025 9:58 AM EDT Plan of Treatment Health Maintenance Due Date Last Done Comments Diabetes: Annual Foot Exam 1980 Diabetes: Annual Retina Eye Exam 1980 Hepatitis B Vaccines (1 of 3 - 19+ 3-dose series) 1989 09/27/2005, 05/31/2005, 03/24/2005 Colorectal Cancer Screening: Colonoscopy 10/12/2022 Diabetes: Annual Urine Albumin-Creatinine Ratio (uACR) 10/12/2022 Social Influencers of Health Screening 10/12/2022 Depression Screening 10/30/2024 COVID-19 Vaccine ( season) 2025 01/14/2022, 03/03/2021, 02/03/2021 Influenza Vaccine (#1) 2025 , 08/11/2023, 10/17/2022, Additional history exists Diabetes: Blood Sugar Control Test (HGBA1C) 09/30/2025 03/31/2025, 01/27/2025, 08/30/2024 Diabetes: Annual GFR (Glomerular Filtration Rate) 06/07/2026 06/07/2025, 06/06/2025, 03/11/2025, Additional history exists Hypertension/CHF/CAD Annual BMP Blood Test 06/07/2026 06/07/2025, 06/06/2025, 03/11/2025, Additional history exists Cholesterol Screening (Lipid Panel) 09/13/2028 09/13/2023 DTaP,Tdap,and Td Vaccines (4 - Td or Tdap) 05/26/2032 05/26/2022, 08/12/2014, 02/25/2005 Hepatitis A Vaccines Aged Out 09/27/2005, 03/24/20 05 No longer eligible based on patient's age to complete this topic Zoster Vaccines Completed 05/26/2022, 03/25/2022 HIV Screening Completed 09/13/2023 Hepatitis C Screening Completed 02/16/2025 Pneumococcal Vaccine: 50+ Years Completed 03/31/2025, 06/28/2018, [...] Priority Date/Time Associated Diagnosis Comments ECG ANNOTATED 06/09/2025 POCT GLUCOSE BLOOD Routine 06/07/2025 11 :44 AM EDT POCT GLUCOSE BLOOD Routine 06/07/2025 8: 12 AM EDT TROPONIN I HIGH SENSITIVITY Routine 06/07/2025 5:51 AM EDT COMPLETE BLOOD COUNT Routine 06/07/2025 5:51 AM EDT MAGNESIUM Routine 06/07/2025 5:51 AM EDT BASIC METABOLIC PANEL Routine 06/07/2025 5:51 AM EDT CPAP NIV Routine 06/06/2025 8:53 PM EDT POCT GLUCOSE BLOOD Routine 06/06/2025 7: 55 PM EDT SST - GOLD Routine 06/06/2025 7:06 PM EDT LT BLUE - NA CITRATE Routine 06/06/2025 7:06 PM EDT EXTRA TUBES Routine 06/06/2025 7:06 PM EDT TROPONIN I HIGH SENSITIVITY Routine 06/06/2025 7:06 PM EDT RESPIRATORY VIRUS PANEL MOLECULAR STUDY Routine 06/06/2025 3:52 PM EDT POCT GLUCOSE BLOOD Routine 06/06/2025 3: [address] ANGIO CHEST WO AND/OR W CONTRAST STAT 06/06/2025 2:42 PM EDT Dyspnea, unspecified type D-DIMER STAT 06/06/2025 11:48 AM EDT TROPONIN I HIGH SENSITIVITY Timed 06/06/2025 11:48 AM EDT XR CHEST 1 VIEW STAT 06/06/2025 11:04 AM EDT ECG 12-LEAD STAT 06/06/2025 10:54 AM EDT ALBUMIN Add-On 06/06/2025 10:42 AM EDT CBC WITH AUTO DIFFERENTIAL STAT 06/06/2025 10:42 AM EDT TROPONIN I HIGH SENSITIVITY Timed 06/06/2025 10:42 AM EDT B-TYPE NATRIURETIC PEPTIDE STAT 06/06/2025 10:42 AM EDT BASIC METABOLIC PANEL STAT 06/06/2025 10:42 AM EDT CBC AND DIFFERENTIAL STAT 06/06/2025 10:42 AM EDT HEPATITIS C ANTIBODY Routine 02/16/2025 2:00 PM EDT from Last 3 Months or Most Recently Relevant to Health Maintenance Results * ECG-Annotated (06/09/2025) us Provider Onbase ECG ORDERABLES Final Result * (ABNORMAL) POCT Glucose, blood (06/07/2025 11:44 AM EDT) Only the most recent of4 resultswithin the time period is included. [facility] Glucose POCT 271(H) 70 - 100 mg/dL 06/07/2025 11:[address] [facility] Blood Capillary blood specimen / Unknown 06/07/2025 11:44 AM EDT 06/07/2025 11:45 AM EDT Corey Willingham MD LAB POINT O F CARE TEST DOCKED DEVICE UNSOLICITED RESULTS Final Result [facility] [address] [place] [address], [place] [phone] * Troponin I high sensitivity (06/07/2025 5:51 AM EDT) Only the most recent of4 resultswithin the time period is included. [facility] High Sensitivity Troponin I 38 <=79 ng/L LAB CHEMISTRY METHOD 06/07/2025 6:58 AM EDT [facility] Blood Venous blood specimen / Unknown Venipuncture / Unknown 06/07/2025 5:51 AM EDT 06/07/2025 6:22 AM EDT [facility] - 06/07/2025 6:58 AM EDT High levels of biotin in samples may falsely decrease hsTroponin values. Use caution when interpreting hsTroponin results in patients taking biotin who exhibit renal impairment (eGFR <60) or in patients taking more than 20 mg/day of biotin. us Hyacinth DORSEY LAB BLOOD ORDERABLES Final R esult [facility] [address] [place] [address], * (ABNORMAL) Complete blood count (06/07/2025 5:51 AM EDT) WBC 5.7 4.8 - 10.8 K/mcL LAB HEMETOLOGY [facility]07[facility] RBC 5.00 4.50 - 5.50 M/[facility] LAB HEMETOLOGY METHOD 06/07/2025 [facility] Hemoglobin 13.6 13.5 - 17.5 g/dL LAB HEMETOLOGY METHOD 06/07/2025 8[facility] Hematocrit 41.7(L) 42.0 - 54.0 % LAB HEMETOLOGY METHOD 06/07/2025 8:[facility] MCV 84.2 79.0 - 98.0 FL LAB HEMETOLOGY METHOD 06/07/2025 8:[facility] MCH 27.5 27.0 - 32.0 pcg LAB HEMETOLOGY METHOD 06/07/2025 8:[facility] MCHC 32.6 32.0 - 37.0 g/dL LAB HEMETOLOGY METHOD 06/07/2025 8:[address] [facility] RDW 13.6 11.0 - 15.0 % LAB HEMETOLOGY METHOD 06/07/2025 8:[address] [facility] Platelets 243 130 - 400 K/mcL LAB HEMETOLOGY METHOD 06/07/2025 8:[address] [facility] MPV 9.7 7.0 - 11.0 FL LAB HEMETOLOGY METHOD 06/07/2025 8:[address] [facility] NRBC 0.0 <1.0 % LAB HEMETOLOGY METHOD 06/07/2025 8:[address] [facility] NRBC Absolute 0.00 <0.10 K/mcL LAB HEMETOLOGY METHOD 06/07/2025 8:[address] [facility] Blood Venous blood specimen / Unknown Venipuncture / Unknown 06/07/2025 5:51 AM EDT 06/07/2025 6:23 AM EDT us Hyacinth DORSEY LAB BLOOD ORDERABLES Final R esult [facility] [address] [place] [address], * (ABNORMAL) Magnesium (06/07/2025 5:51 AM EDT) Magnesium 2.7(H) 1.9 - 2.6 mg/dL LAB CHEMISTRY METHOD 06/07/2025 6:[address] [facility] Blood Venous blood specimen / Unknown Venipuncture / Unknown 06/07/2025 5:51 AM EDT 06/07/2025 6:23 AM EDT Hyacinth DORSEY LAB BLOOD ORDERABLES Final R esult [facility] [address] [place] [address], * (ABNORMAL) Basic metabolic panel (06/07/2025 5:51 AM EDT) Only the most recent of2 resultswithin the time period is included. Sodium 139 133 - 145 mmol/L LAB CHEMISTRY METHOD 06/07/2025 6:[address] [facility] Potassium 3.6 3.5 - 5.5 mmol/L LAB CHEMISTRY METHOD 06/07/2025 6:[address] [facility] Chloride 99 96 - 110 mmol/L LAB CHEMISTRY METHOD 06/07/2025 6:58 AM [facility] CO2 35(H) 21 - 32 mmol/L LAB CHEMISTRY METHOD 06/07/2025 6:58 AM [facility] Anion Gap 5 3 - 11 LAB CHEMISTRY METHOD 06/07/2025 6:58 AM [facility] Glucose 200(H) 70 - 100 mg/dL LAB CHEMISTRY METHOD 06/07/2025 6:58 AM [facility] BUN 29(H) 5 - 25 mg/dL LAB CHEMISTRY METHOD 06/07/2025 6:58 AM [facility] Creatinine 1.20 0.70 - 1.30 mg/dL LAB CHEMISTRY METHOD 06/07/2025 6:[address] [facility] eGFR 71 >=60 mL/min/1. 73m2 LAB CHEMISTRY METHOD 06/07/2025 6:58 AM [facility] Comment:Calculation based on the Chronic Kidney Disease Epidemiology Collaboration (CKD-EPI) equation refit without adjustment for race. BUN/Creatinine Ratio 24.2 LAB CHEMISTRY METHOD 06/07/2025 6:58 AM [facility] Calcium 9.2 8.5 - 10.5 mg/dL LAB CHEMISTRY METHOD 06/07/2025 6:[address] [facility] Blood Venous blood specimen / Unknown Venipuncture / Unknown 06/07/2025 5:51 AM EDT 06/07/2025 6:23 AM EDT us Hyacinth Gupta PA LAB BLOOD ORDERABLES Final R esult Performing Organization Address City/[facility]/ZIP Co de Phone Number [facility] [address] [place] [address], [place] [phone] * SST tube (06/06/2025 7:06 PM EDT) Extra Tube Hold for add-ons. 06/06/2025 9:[address] [facility] Comment:Auto resulted. Blood Venous blood specimen / Unknown 06/06/2025 7:06 PM EDT 06/06/2025 7:26 PM EDT us Danny Larose DO LAB BLOOD ORDERABLES Final R esult Performing Organization Address [facility]/ZIP Co de Phone Number [facility] [address] [place] [address], [place] [phone] * Light blue tube (06/06/2025 7:06 PM EDT) Extra Tube Hold for add-ons. 06/06/2025 9:[address] [facility] Comment:Auto resulted. Blood Venous blood specimen / Unknown 06/06/2025 7:06 PM EDT 06/06/2025 7:26 PM EDT us Danny Larose DO LAB BLOOD ORDERABLES Final R esult [facility] [address] [place] [address], [place] [phone] * Respiratory virus panel molecular study (06/06/2025 3:52 PM EDT) [facility] Adenovirus Detection by PCR Not Detected Not Detected LAB MICROBIOLOGY METHOD 06/06/2025 5:[address] [facility] Influenza A PCR Not Detected Not Detected LAB MICROBIOLOGY METHOD 06/06/2025 5:[address] [facility] Influenza B PCR Not Detected Not Detected LAB MICROBIOLOGY METHOD 06/06/2025 5:[address] [facility] Coronavirus 229E Not Detected Not Detected LAB MICROBIOLOGY METHOD 06/06/2025 5:[address] [facility] Coronavirus HKU1 Not Detected Not Detected LAB MICROBIOLOGY METHOD 06/06/2025 5:[address] [facility] Coronavirus OC43 Not Detected Not Detected LAB MICROBIOLOGY METHOD 06/06/2025 5:[address] [facility] Coronavirus NL63 Not Detected Not Detected LAB MICROBIOLOGY METHOD 06/06/2025 5:[address] [facility] Parainfluenza Virus 1 Not Detected Not Detected LAB MICROBIOLOGY METHOD 06/06/2025 5:[address] [facility] Parainfluenza Virus 2 Not Detected Not Detected LAB MICROBIOLOGY METHOD 06/06/2025 5:[address] [facility] Parainfluenza Virus 3 Not Detected Not Detected LAB MICROBIOLOGY METHOD 06/06/2025 5:[address] [facility] Parainfluenza Virus 4 Not Detected Not Detected LAB MICROBIOLOGY METHOD 06/06/2025 5:[address] [facility] RSV PCR Not Detected Not Detected LAB MICROBIOLOGY METHOD 06/06/2025 5:[address] [facility] Human Metapneumovirus A and B Not Detected Not Detected LAB MICROBIOLOGY METHOD 06/06/2025 5:[address] [facility] Rhinovirus/Entero virus Not Detected Not Detected LAB MICROBIOLOGY METHOD 06/06/2025 5:[address] [facility] Bordetella pertussis Not Detected Not Detected LAB MICROBIOLOGY METHOD 06/06/2025 5:[address] [facility] Bordetella parapertussis Not Detected Not Detected LAB MICROBIOLOGY METHOD 06/06/2025 5:[address] [facility] Mycoplasma pneumo by PCR Not Detected Not Detected LAB MICROBIOLOGY METHOD 06/06/2025 5:[address] [facility] Chlamydia pneumoniae Not Detected Not Detected LAB MICROBIOLOGY METHOD 06/06/2025 5:[address] [facility] SARS COV-2 Not Detected Not Detected LAB MICROBIOLOGY METHOD 06/06/2025 5:[address] [facility] Swab Both anterior nares / Unknown Non-blood Collection / Unknown 06/06/2025 3:52 PM EDT 06/06/2025 4:[address] [facility] - 06/06/2025 5:19 PM EDT Testing was performed using the [employer] Respiratory Pathogen PCR Assay. All results must [...] that are below the limit of detection. Hyacinth DORSEY LAB MICROBIOLOGY - GENERAL O RDERABLES Final Result [facility] [address] [place] [address], * CT Angio Chest wo and/or w Contrast (06/06/2025 2:42 PM EDT) Anatomical Region Laterality Modality Body Computed Tomogra phy 06/06/2025 3:12 PM EDT Impressions 06/06/2025 3:19 PM EDT No acute pulmonary embolism. -------- FINAL REPORT -------- Dictated By: Ambreen Huang Dictated Date: 06/06/2025 15:12 ET Assigned Physician: Ambreen Huang Reviewed and Electronically Signed By: Ambreen Huang Signed Date: 06/06/2025 15:19 ET Workstation ID: [id number] Transcribed By: Self Edit Transcribed Date: 06/06/2025 15:12 ET Narrative 06/06/2025 3:19 PM EDT PROCEDURE: CT ANGIO CHEST INDICATION: Chest pain, nonspecific COMPARISON: None. TECHNIQUE: CT pulmonary angiogram performed following uneventful IV administration of ISOVUE contrast material with bolus timing technique from the thoracic inlet through the lung bases. 3-D multiplanar reformations were obtained by the technologist on an independent workstation. [employer]ed VCT dose reduction utilizing iterative reconstruction. Total exam DLP 594 (mGy-cm) FINDINGS: Mosaic attenuation throughout the lungs. Calcified granuloma at the medial right lower lobe. The heart is within normal limits in size. There is no pericardial effusion. Coronary artery calcifications. The thoracic aorta is normal in caliber. There is no evidence for mediastinal or hilar lymphadenopathy. No acute pulmonary embolism. There are no pleural effusions. The visualized portion of the upper abdomen demonstrates no acute findings however technique was not optimized for evaluation for more subtle lesions. Thickening of the distal esophagus. The included skeletal structures are within normal limits for technique. Procedure Note Ambreen Huang MD - 06/06/2025 PROCEDURE: CT ANGIO CHEST INDICATION: Chest pain, nonspecific COMPARISON: None. TECHNIQUE: CT pulmonary angiogram performed following uneventful IVadministration of ISOVUE contrast material with bolus timing techniquefrom the thoracic inlet through the lung bases. 3-D multiplanar reformations were obtained by the technologist on anindependent workstation. [employer] VCT dose reduction utilizing iterative reconstruction. Total exam DLP 594 (mGy-cm) FINDINGS: Mosaic attenuation throughout the lungs. Calcified granuloma at themedial right lower lobe. The heart is within normal limits in size. There is no pericardialeffusion. Coronary artery calcifications. The thoracic aorta is normalin caliber. There is no evidence for mediastinal or hilar lymphadenopathy. No acute pulmonary embolism. There are no pleural effusions. The visualized portion of the upper abdomen demonstrates no acute findingshowever technique was not optimized for evaluation for more subtlelesions. Thickening of the distal esophagus. The included skeletal structures are within normal limits for technique. IMPRESSION: No acute pulmonary embolism. -------- FINAL REPORT -------- Dictated By: Ambreen Huang Dictated Date: 06/06/2025 15:12 ET Assigned Physician: Ambreen Huang Reviewed and Electronically Signed By: Ambreen Huang Signed Date: 06/06/2025 15:19 ET Workstation ID: [id number] Transcribed By: Self Edit Transcribed Date: 06/06/2025 15:12 ET Bayron Hester MD IMG CT PROCEDURES Final Res ult * D-dimer, quantitative (06/06/2025 11:48 AM EDT) D-Dimer, Quant (D-DU) 191 <=230 ng/mL DDU LAB COAGULATION METHOD 06/06/2025 12:[address] [facility] Blood Venous blood specimen / Unknown Venipuncture / Unknown 06/06/2025 11:48 AM EDT 06/06/2025 12:[address] [facility] - 06/06/2025 12:27 PM EDT D-Dimer <230 ng/mL (D-Dimer units) is the threshold for exclusion of DVT/PE. D-Dimer may be elevated in: Critically ill, severely infected, trauma patients, DIC, acute CVA, acute UT, unstable angina, AF, old age, , and smoking. D-Dimer may be decreased with: Initiation of heparin therapy and oral anticoagulants. Bayron Hester MD LAB BLOOD ORDERABLES Final Result [facility] [address] [place] [address], * XR Chest 1 View (06/06/2025 11:04 AM EDT) Anatomical Region Laterality Modality Body Radiographic Aleida ging 06/06/2025 11:0 7 AM EDT Impressions 06/06/2025 11:08 AM EDT No acute pulmonary disease. Pulmonary vascular congestion consistent with congestive heart failure has resolved since 02/15/2025. Cardiomegaly is stable. Code 73101 -------- FINAL REPORT -------- Dictated By: Ceasar Lopez Dictated Date: 06/06/2025 11:07 ET Assigned Physician: Ceasar Lopez Reviewed and Electronically Signed By: Ceasar Lopez Signed Date: 06/06/2025 11:08 ET Workstation ID: [id number] Transcribed By: Self Edit Transcribed Date: 06/06/2025 11:07 ET Narrative 06/06/2025 11:08 AM EDT HISTORY: The patient is a 55-year-old male with dyspnea. FINDINGS: Sitting AP portable radiograph of the chest demonstrates degenerative changes of the thoracic spine as also seen on the prior study performed 02/15/2025. The cardiac silhouette is again seen to be enlarged. The mediastinal contour is within normal limits. The lungs and costophrenic angles are clear. Pulmonary vascular congestion has resolved since the prior study. Procedure Note Ceasar Lopez MD - 06/06/2025 HISTORY: The patient is a 55-year-old male with dyspnea. FINDINGS: Sitting AP portable radiograph of the chest demonstratesdegenerative changes of the thoracic spine as also seen on the prior studyperformed 02/15/2025. The cardiac silhouette is again seen to be enlarged.The mediastinal contour is within normal limits. The lungs andcostophrenic angles are clear. Pulmonary vascular congestion has resolvedsince the prior study. IMPRESSION: No acute pulmonary disease. Pulmonary vascular congestion consistent withcongestive heart failure has resolved since 02/15/2025. Cardiomegaly isstable. Code 24717 -------- FINAL REPORT -------- Dictated By: Ceasar Lopez Dictated Date: 06/06/2025 11:07 ET Assigned Physician: Ceasar Lopez Reviewed and Electronically Signed By: Ceasar Lopez Signed Date: 06/06/2025 11:08 ET Workstation ID: [id number] Transcribed By: Self Edit Transcribed Date: 06/06/2025 11:07 ET Bayron Hester MD IMG XR PROCEDURES Final Res ult * ECG 12 lead (06/06/2025 10:54 AM EDT) [facility] Ventricular Rate ECG 65 BPM GEMUSE Atrial Rate 65 BPM GEMUSE P-R Interval 144 ms GEMUSE QRS Duration 78 ms GEMUSE Q-T Interval 438 ms GEMUSE QTc 455 ms GEMUSE P Wave Arnett 26 degrees GEMUSE R Arnett 4 degrees GEMUSE T Arnett 116 degrees GEMUSE ECG Interpretation Normal sinus rhythm ST and T wave abnormality, consider lateral ischemia When compared with ECG of 15-FEB-2025 12:38, T wave inversion now evident in Lateral leads Confirmed by ABDIRAHMAN HALEY ([id number]) on 06/08/2025 11:47:41 PM GEMUSE 06/06/2025 10:5 4 AM EDT 06/08/2025 11:47 PM EDT Bayron Hester MD ECG ORDERABLES Final Resul t GEMUSE * (ABNORMAL) CBC auto differential (06/06/2025 10:42 AM EDT) [facility] WBC 6.9 4.8 - 10.8 K/mcL LAB HEMETOLOGY METHOD 06/06/2025 10:[address] [facility] RBC 5.40 4.50 - 5.50 M/[facility] LAB HEMETOLOGY METHOD 06/06/2025 10:[address] [facility] Hemoglobin 15.3 13.5 - 17.5 g/dL LAB HEMETOLOGY METHOD 06/06/2025 10:[address] [facility] Hematocrit 44.2 42.0 - 54.0 % LAB HEMETOLOGY METHOD 06/06/2025 10:[address] [facility] MCV 81.4 79.0 - 98.0 FL LAB HEMETOLOGY METHOD 06/06/2025 10:58 AM [facility] MCH 28.2 27.0 - 32.0 pcg LAB HEMETOLOGY METHOD 06/06/2025 10:58 AM [facility] MCHC 34.6 32.0 - 37.0 g/dL LAB HEMETOLOGY METHOD 06/06/2025 10:58 AM [facility] RDW 13.2 11.0 - 15.0 % LAB HEMETOLOGY METHOD 06/06/2025 10:58 AM [facility] Platelets 230 130 - 400 K/mcL LAB HEMETOLOGY METHOD 06/06/2025 10:58 AM [facility] MPV 9.7 7.0 - 11.0 FL LAB HEMETOLOGY METHOD 06/06/2025 10:58 AM [facility] NRBC 0.0 <1.0 % LAB HEMETOLOGY METHOD 06/06/2025 10:58 AM [facility] NRBC Absolute 0.00 <0.10 K/mcL LAB HEMETOLOGY METHOD 06/06/2025 10:58 AM [facility] Neutrophils Relative 80.0 % LAB HEMETOLOGY METHOD 06/06/2025 10:58 AM [facility] Lymphocytes Relative 10.3 % LAB HEMETOLOGY METHOD 06/06/2025 10:58 AM [facility] Monocytes Relative 7.7 % LAB HEMETOLOGY METHOD 06/06/2025 10:58 AM [facility] Eosinophils Relative 1.2 % LAB HEMETOLOGY METHOD 06/06/2025 10:58 AM [facility] Basophils Relative 0.4 % LAB HEMETOLOGY METHOD 06/06/2025 10:58 AM [facility] Immature Granulocytes Relative 0.4 % LAB HEMETOLOGY METHOD 06/06/2025 10:[address] [facility] Neutrophils Absolute 5.54 1.50 - 7.00 K/mcL LAB HEMETOLOGY METHOD 06/06/2025 10:[address] [facility] Lymphocytes Absolute 0.71(L) 1.00 - 5.00 K/mcL LAB HEMETOLOGY METHOD 06/06/2025 10:[address] [facility] Monocytes Absolute 0.53 0.20 - 1.00 K/mcL LAB HEMETOLOGY METHOD 06/06/2025 10:[address] [facility] Eosinophils Absolute 0.08 0.00 - 0.50 K/mcL LAB HEMETOLOGY METHOD 06/06/2025 10:[address] [facility] Basophils Absolute 0.03 0.00 - 0.20 K/mcL LAB HEMETOLOGY METHOD 06/06/2025 10:[address] [facility] Immature Granulocytes Absolute 0.03 0.00 - 0.03 K/mcL LAB HEMETOLOGY METHOD 06/06/2025 10:[address] [facility] Blood Venous blood specimen / Unknown Venipuncture / Unknown 06/06/2025 10:42 AM EDT 06/06/2025 10:50 AM EDT Bayron Hester MD LAB BLOOD ORDERABLES Final Result [facility] [address] [place] [address], * B-type natriuretic peptide (06/06/2025 10:42 AM EDT) BNP 92 <=100 pcg/mL LAB CHEMISTRY METHOD 06/06/2025 11:[address] [facility] Blood Venous blood specimen / Unknown Venipuncture / Unknown 06/06/2025 10:42 AM EDT 06/06/2025 10:50 AM EDT us Bayron Hester MD LAB BLOOD ORDERABLES Final Result Performing Organization Address [facility]/ZIP Co de Phone Number [facility] [address] [place] [address], [place] [phone] * Serum albumin (06/06/2025 10:42 AM EDT) [facility] Albumin 3.2 3.2 - 5.0 g/dL LAB CHEMISTRY METHOD 06/06/2025 2:[address] [facility] Blood Venous blood specimen / Unknown Venipuncture / Unknown 06/06/2025 10:42 AM EDT 06/06/2025 10:50 AM EDT us Hyacinth DORSEY LAB BLOOD ORDERABLES Final R esult Performing Organization Address [facility]/ZIP Co de Phone Number [facility] [address] [place] [address], [place] [phone] * Hepatitis C antibody (02/16/2025 2:00 PM EDT) [facility] Hepatitis C Antibody Negative Negative LAB CHEMISTRY METHOD 02/16/2025 5:[address] [facility] Blood Venous blood specimen / Unknown Venipuncture / Unknown 02/16/2025 2:00 PM EDT 02/16/2025 2:05 PM EDT us Ish David MD LAB BLOOD ORDERABLES Final Res ult Performing Organization Address City/[facility]/ZIP Co de Phone Number [facility] [address] [place] [address], [place] [phone] from Last 3 Months or Most Recently Relevant to Health Maintenance Insurance [facility] PUBLIC PLANS Advance Directives * Full Code - Confirmed (Latest Code Status on File) Date Activated Date Inactivated Comments 06/06/2025 2:20 PM 06/07/2025 4:41 PM This code stat us was ascertained in the following way: Code status discussion: discussion with patient To update the patient's code status, place a code status order. Do not modify or discontinue any currently active code status orders. * Full Code - Default Date Activated Date Inactivated Comments 02/15/2025 5:57 PM 02/19/2025 7:05 PM This is orde r is used when code status has not been discussed with the patient, or code status is otherwise unknown/unconfirmed To update the patient's code status, place a code status order. Do not modify or discontinue any currently active code status orders. Care Teams Planning Analyst Relationship Specialty Start Date End Date Physician, Pcp Unknown PCP - General 05/01/25
--- OUTSIDE RECORDS SUMMARY | 2025-07-04 10:59 | XMS_ITS | Encounter Summary ---
Author Organization [employer] Address [address] [facility] 7t [place] [address] Care Team Providers Care Fire Extinguisher Repairer Inspector Name Role Phone Marilee Cordero Primary Care Provider [phone] Cristo Garcia MD Unavailable Doris Candelario Unavailable [phone] Yoselyn Lyons Unavailable Unavailable Balbir Don Unavailable Lindsay Nur PharmD Unavailable Reason for Visit * Reason Onset Date Comments Hospital Follow-up 03/17/2025 Encounter Details Date Type Department Care Team (Late st Contact Info) Description 03/17/2025 Telephone [facility] [address] [place] [address] Marilee Cordero FNP [address] [place], [place] [id number] Hospital Follow-up Social History Tobacco Use Types Packs/Day Years [...] encounter Miscellaneous Notes * Telephone Encounter - Janel Hunt - 03/17/2025 9:12 AM EDT Tc from pt requesting a F appt. Hospital: [facility] Date of admission: 03/11/25 Discharge date: 03/15/25 Diagnosed: Leg pain and goes up to back *Send message to [place] Clinical Care Coordinators documented in this encounter Plan of Treatment Upcoming Encounters Date Type Department Care Team (Late st Contact Info) Description 08/14/2025 1:30 PM EDT Medication Management [facility] [address] [place] [address] Lindsay Nur, PharmD [address] [place] [address] documented as of this encounter Visit Diagnoses Not on filedocumented in this encounter Additional Health Concerns Assessment Noted Time PHQ-9 Depression Total Score: 13 025 8:59 AM EDT documented as of this encounter Care Teams Fire Extinguisher Repairer Inspector Relationship Specialty Start Date End Date Marilee Cordero FNP [address] [place] [address] PCP - General Family Medicine 03/23/23 Cristo Garcia MD [address] [place] [address] Rheumatology 09/01/24 Doris Candelario [address] [place] [address] Cardiology 09/01/24 Yoselyn Lyons [address] [place] [address] Ophthalmology 09/01/24 Balbir Don 22 [facility] 301 [place] [address] Sleep Medicine 09/01/24 Lindsay Nur PharmD 230 [place] [address] Pharmacist Pharmacy 05/29/25 Dr. Ramirez 100 [facility] 200 [place] [address] Nephrology 09/01/24 [facility] 03/18/25 05/04/25 documented as of this encounter
--- OUTSIDE RECORDS SUMMARY | 2025-07-04 10:59 | XMS_ITS | Encounter Summary ---
Author Organization [employer] Address [address] [facility] 7t [place] [address] Care Team Providers Care Mechanic Senior Name Role Phone Marilee Cordero Primary Care Provider [phone] Cristo Garcia MD Unavailable Doris Candelario Unavailable [phone] Yoselyn Lyons Unavailable Unavailable Balbir Don Unavailable Lindsay NurD Unavailable [phone] Reason for Visit * Reason Onset Date Comments chart prep 07/03/2025 Encounter Details Date Type Department Care Team ([facility] st Contact Info) Description 07/03/2025 Telephone [facility] [address] [place], [place] [phone] Marilee Cordero FNP [address] [place] [address] chart prep Social History Tobacco Use Types Packs/Day Years [...] encounter Miscellaneous Notes * Telephone Encounter - Kayla Walls [place] - 07/03/2025 1:37 PM EDT Chart Prep Labs: done Images: done Referrals: appointment pending Vaccines due: Covid, Flu, and Hep B Screenings: colonoscopy Overdue care gaps: Glucose documented in this encounter Plan of Treatment Upcoming Encounters Date Type Department Care Team (Late st Contact Info) Description 08/14/2025 1:30 PM EDT Medication Management [facility] & PEDS [address] [place] [address] Lindsay Nur, PharmD [address] [place], [place] [phone] documented as of this encounter Visit Diagnoses Not on filedocumented in this encounter Additional Health Concerns Assessment Noted Time PHQ-9 Depression Total Score: 13 025 8:59 AM EDT documented as of this encounter Care Teams Mechanic Senior Relationship Specialty Start Date End Date Marilee Cordero FNP [address] [place] [address] PCP - General Family Medicine 03/23/23 Cristo Garcia MD [address] [place] [address] Rheumatology 09/01/24 Doris Candelario [address] [place] [address] Cardiology 09/01/24 Yoselyn Lyons 180 [place] [address] Ophthalmology 09/01/24 Balbir Don 22 [facility] 301 [place] [address] Sleep Medicine 09/01/24 Lindsay Nur PharmD 230 [place] [address] Pharmacist Pharmacy 05/29/25 Dr. Ramirez [address] [place] [phone] Nephrology 09/01/24 documented as of this encounter
--- OUTSIDE RECORDS SUMMARY | 2025-07-04 10:59 | XMS_ITS | Encounter Summary ---
Author Organization [employer] Address [address] [facility] 7t [place] [address] Care Team Providers Care Service Now Developer Name Role Phone Marilee Cordero RN NEUROLOGY Primary Care Provider [phone] Cristo Garcia MD Unavailable Doris Candelario Unavailable [phone] Yoselyn Lyons Unavailable Unavailable Balbir Don Unavailable Lindsay Nur PharmD Unavailable [phone] Reason for Visit * Reason Comments Med Refill Encounter Details Date Type Department Care Team (Late st Contact Info) Description 07/23/2023 Refill [facility] [address] [place], [place] [phone] Donavan Mcgee AGNP Social History Tobacco Use [...] Department Care Team (Late Contact Info) Description 08/14/2025 1:30 PM EDT Medication Management [facility] [address] [place] [address] NurLindsay PharmD 230 [place] [address] documented as of this encounter Visit Diagnoses Not on filedocumented in this encounter Additional Health Concerns Assessment Noted Time PHQ-9 Depression Total Score: 1 10/17/20 22 10:05 AM EST documented as of this encounter Care Teams Service Now Developer Relationship Specialty Start Date End Date Marilee Cordero FNP [address] [place] [address] PCP - General Family Medicine 03/23/23 Cristo Garcia MD [address] [place] [address] 402 [place] [address] Rheumatology 09/01/24 Doris Candelario [address] [place] [address] Cardiology 09/01/24 Yoselyn Lyons 180 [place] [address] Ophthalmology 09/01/24 Balbir Don 22 [facility] 301 [place] [address] Sleep Medicine 09/01/24 Lindsay Nur PharmD 230 [place] [address] Pharmacist Pharmacy 05/29/25 Dr. Ramirez 100 [facility] 200 [place] [phone] Nephrology 09/01/24 [facility] 03/18/25 05/04/25 documented as of this encounter
[2025-07-04 11:51] LABS: MANUAL DIFF FLAG NO
[2025-07-04 11:57] LABS: Hematocrit 39.5 % (42.0-52.0); Hemoglobin 13.7 g/dl (14.0-18.0); Imm Gran Abs Auto 0.02 X10*3/uL (0.00-0.03); Imm Gran Pct Auto 0.3 % (0.0-0.4); Lymphocytes Absolute Auto 0.5 X10*3/uL (1.2-4.9); Mean Corpuscular HGB Conc 34.7 g/dl (31.0-36.0); Mean Corpuscular Hemoglobin 28.9 pg (27.0-33.0); Mean Corpuscular Volume 83.3 fL (80.0-98.0); NRBC Abs Auto 0.000 X10*3/uL (0.0-0.012); NRBC Pct Auto 0.0 /100WBC (0.0-0.2); Platelet Count 186 X10*3/uL (160-400); Red Blood Count 4.74 X10*6/uL (4.60-5.80); White Blood Count 6.5 X10*3/uL (4.8-10.8)
[2025-07-04 12:08] LABS: Alanine Aminotransferase 27 U/L (0-40); Albumin Level 3.8 g/dL (3.5-5.0); Alkaline Phosphatase 60 U/L (39-117); Anion Gap 11 (12-20); Aspartate Amino Transferase 25 U/L (5-37); Blood Urea Nitrogen 23 mg/dL (9-16); Calcium 9.2 mg/dL (8.4-10.2); Carbon Dioxide 28 mmol/L (22-29); Chloride 109 mmol/L (96-108); Cholesterol 158 mg/dL (<200); Estimated Glomerular Filt Rate > 60; HDL Cholesterol 29 mg/dL (>40); Potassium 4.6 mmol/L (3.3-5.1); Sodium 143 mmol/L (135-145); Total Protein 6.4 g/dL (6.5-8.0); Triglycerides 129 mg/dL (<150)
[2025-07-04 12:41] LABS: Folate 9.4 ng/mL (> or = 4.0); Vitamin B12 237 pg/mL (200-900)
== END 2025-07-04 10:04 | disposition home or self-care (01) ==
LOC: HO.CHCLDS 10:03
PROVIDERS: PCP Registered Nurse; Referring Provider Student in an Organized Health Care Education/Training Program; Visit Provider Registered Nurse
DX: E11.65 Type 2 diabetes mellitus with hyperglycemia (principal); L40.50 Arthropathic psoriasis, unspecified; Z79.4 Long term (current) use of insulin
CPT/HCPCS: 36415; 80053; 80061; 82607; 82746; 83921; 85025; 85652; 86140

== ENCOUNTER 2025-07-10 11:07 | Outpatient (AMB) | payer OTHER, SELFPAY ==
--- OUTSIDE RECORDS SUMMARY | 2025-04-28 09:00 | XMS_ITS | Encounter Summary ---
Author Organization [employer] Address [address] [facility] [address] [place] [address] Care Team Providers Care Grain Merchandising Manager Name Role Phone Marilee Cordero Primary Care Provider [phone] Cristo Garcia MD Unavailable Doris Candelario Unavailable [phone] Yoselyn Lyons Unavailable Unavailable Balbir Don Unavailable Lindsay Nur PharmD Unavailable [phone] Meño Butcher MD Unavailable [phone] Reason for Referral * Consultation (Routine) - Authorized Specialty Diagnoses / Procedures Referred By Jovanny orr Referred To Contact Pharmacy Diagnoses Type 2 diabetes mellitus with hyperglycemia, with long-term current use of insulin (CMS/HCC) Marilee Cordero FNP [address] [place] [address] Phone: tel: fax: Referral ID Status Reason Start Date Expiration Date Visits Requested Visits Authorized [id number] Authorized Consult and Treat 04/29/2025 04/29/2026 6 6 * Consultation (Routine) - Authorized Specialty Diagnoses / Procedures Referred By Jovanny orr Referred To Contact Podiatry Diagnoses Type 2 diabetes mellitus with hyperglycemia, with long-term current use of insulin (CMS/HCC) Diabetic polyneuropathy associated with type 2 diabetes mellitus (CMS/HCC) Onychauxis Marilee Cordero FNP [address] [place] [address] Phone: tel: fax: Handy Ochoa DPM [address] [place] [address] Phone: tel: fax: Referral ID Status Reason Start Date Expiration Date Visits Requested Visits Authorized [id number] Authorized Specialty Services Required 04/29/2025 04/29/2026 1 1 Encounter Details Date Type Department Care Team (Latest Contact Info) Description 04/28/2025 9:00 AM EDT Office Visit [facility] [address] [place] [address] Marilee Cordero FNP [address] [place] [address] Type 2 diabetes mellitus with hyperglycemia, with long-term current use of insulin (CMS/HCC) (Primary Dx); Hematuria, unspecified type; Peripheral nerve disease; Diabetic polyneuropathy associated with type 2 diabetes mellitus (CMS/HCC); Numbness and tingling of right arm; Onychauxis; Abscess of right lower extremity; Bilateral foot-drop Social History Tobacco Use Types Packs/Day Years [...] Sign Reading Time Taken Comments Blood Pressure 127/73 04/28/2025 9:31 AM EDT Pulse 65 04/28/2025 9:31 AM EDT Temperature 36.3 C (97.3 F) 04/28/2025 9:31 AM EDT Respiratory Rate 20 04/28/2025 9:31 AM EDT Oxygen Saturation - - Inhaled Oxygen Concentration - - Weight 104 kg (229 lb) 04/28/2025 9:31 AM EDT Height 182.9 cm (6') 04/28/2025 9:31 AM EDT Body Mass Index 31.06 04/28/2025 9:31 AM EDT documented in this encounter Progress Notes * BRANDEN Patel - 04/28/2025 9:00 AM EDT Subjective: Joesph Saldana is a 54 y.o. male with a history of T2DM w/ peripheral neuropathy, diabetic foot ulcers, HTN, CHF, sleep apnea, psoriasis, and psoriatic arthritis who presents to the office with hiswife for a follow up visit. HPI: - Last PCP visit: 03/31/25 for HDF Referral to [facility] - reports has not yet heard from office. PCP called [facility] on 04/29/25. They confirmed receipt of referral and will plan to contact pt shortly to schedule - Abscess RLE: improved, no longer with bandage. Reports final appt with [facility] later this week. - Peripheral neuropathy BLE: longstanding numbness/tingling BLE. Able to feel until about midway down miller. Subsequent distal portion of extremities with limited sensation and (+) numbness/tingling. Rx gabapentin 100mg daily. - RUE numbness/tinglin months of decreased sensation and numbness/tingling right hand/fingers. Associated with slight decrease in information clerk brokerage strength compared to left hand. Right hand dominant. No known neck injury or significant pain. No know injury or trauma. Will plan for EMG/NCS of RUE and BLE - T2DM: increased to lantus 12 units nightly last appt. Continues with metformin BID. Previously rxGLP1, although DC d/t co-pay and limited availability. Denies any med SE. FBG readings 200s. Discussed inc lantus vs re-initiation GLP1. Shared decision making to start Trulicity 0.75mg subcutaneous weekly. In agreement today with CDTM referral for further titration of medications. - AFO brace: last appt home physical therapist requested bilateral AFOs to address weakness in ankle dorsiflexion. This has been chronic for patient and likely secondary to peripheral nerve disease, chronic diabetic foot ulcers, and psoriatic arthritis. Pt reports went for fitting, but [employer] wanted more specific information related to type of AFO. PCP called [facility] on 04/29/25. LVM, Willrequest assistance from team Rns to follow up. Problem List[1] Review of Systems Constitutional: Negative for chills and fever. Respiratory: Negative for cough, chest tightness and wheezing. Cardiovascular: Negative for chest pain and palpitations. Gastrointestinal: Negative for diarrhea, nausea and vomiting. Neurological: Positive for numbness. Psychiatric/Behavioral: Negative for suicidal ideas. Visit Vitals BP 127/73 (BP Location: Left arm, Patient Position: Sitting, BP Cuff Size: Adult) Pulse 65 Temp 97.3 ??F (36.3 ??C) (Oral) Resp 20 Ht 6' (1.829 m) Wt 229 lb (104 kg) BMI 31.06 kg/m?? Smoking Status Never BSA 2.3 m?? Physical Exam Vitals reviewed. Constitutional: Appearance: Normal appearance. HENT: Head: Atraumatic. Right Ear: External ear normal. Left Ear: External ear normal. Cardiovascular: Rate and Rhythm: Normal rate and regular rhythm. Pulmonary: Effort: Pulmonary effort is normal. Breath sounds: Normal breath sounds. No wheezing or rhonchi. Musculoskeletal: Right foot: Foot drop present. Left foot: Foot drop present. Feet: Right foot: Protective Sensation: 0 sites tested. 7 sites sensed. Toenail Condition: Right toenails are abnormally thick. Left foot: Protective Sensation: 7 sites tested. 0 sites sensed. Toenail Condition: Left toenails are abnormally thick. Comments: RLE: lateral lower extremity proximal to lateral malleolus with improvement of wound appearance. Dry, scabbed over. No surrounding erythema, discharge, or tenderness. Neurological: Mental Status: He is alert and oriented to person, place, and time. Psychiatric: Mood and Affect: Mood normal. Behavior: Behavior normal. Problem List Items Addressed This Visit Endocrine and Metabolic Type 2 diabetes mellitus with hyperglycemia, with long-term current use of insulin ([facility]) - Primary Overview Lab Results Component Value Date HGBA1C 10.8 (A) 03/31/2025 HGBA1C 10.9 (A) 01/27/2025 HGBA1C 12.7 (A) 08/30/2024 HGBA1C 6.8 (A) 02/26/2024 HGBA1C 10.2 (A) 11/24/2023 HGBA1C 7.4 (H) 04/27/2022 HGBA1C 12.0 (H) 01/26/2022 -CGM denied by insurance 2023 d/t not injecting insulin multiple times per day Med regimen: Cont Lantus 12 units at bedtime Cont metformin 500mg BID Re-start Trulicity 0.75mg subcutaneous weekly SGLT2 possible rx by renal, if not, may be good addition in future -Denies red flag symptoms, ED precautions reviewed -Microalbumin: above normal limits, following with renal for proteinuria -[facility] referral on 04/29/25 Relevant Medications Dulaglutide (Trulicity) 0.75 MG/0.5ML solution auto-injector Other Relevant Orders POCT Glucose (Completed) POCT Urinalysis (Completed) Referral to Podiatry Referral to Pharmacy CD[facility] Genitourinary and Reproductive Hematuria Current Assessment & Plan Hematuria noted on point of care UA, confirmed with send out Following with [facility] Relevant Orders Urinalysis Complete (Completed) Neuro Peripheral nerve disease Overview Sciatica Pain mgmt 03/17/23: Patient is not able to walk and stand on heels and tip toes due to bilateral foot pain due to chronic diabetic foot ulcers, numbness and psoriatic arthritis poor candidate for therapeutic injections given significantly elevated A1C >11. Relevant Orders EMG Nerve conduction test Diabetic polyneuropathy associated with type 2 diabetes mellitus (CMS/HCC) Current Assessment & Plan Decreased sensation from mid-calf BLE distally Monofilament exam March 2025: sensation at 0/7 sites tested bilaterally Cont gabapentin 100mg daily, plan to likely inc dose in future Referral to podiatry placed 04/29/25 No NCS/EMG on file, pt denies completing in the past. NCS/EMG order placed for BLE Relevant Orders EMG Nerve conduction test Referral to Podiatry Other Visit Diagnoses Numbness and tingling of right arm -Initial eval with EMG/NCS Relevant Orders EMG Nerve conduction test Onychauxis Relevant Orders Referral to Podiatry Abscess of right lower extremity - Improved/resolved Bilateral foot-drop - AFO braces bilat rx March 2025 following PT rec Follow up: 3 months extended, sooner as needed. [1] Patient Active Problem List Diagnosis Allergic rhinitis Asthma Benign prostatic hyperplasia Diabetic foot ulcer (CMS/HCC) Diabetic macular edema (CMS/HCC) Gastroesophageal reflux disease Hyperlipidemia Hypertension Mixed anxiety and depressive disorder Obstructive sleep apnea syndrome Peripheral nerve disease Proliferative diabetic retinopathy associated with type 2 diabetes mellitus (CMS/HCC) Psoriasis Type 2 diabetes mellitus with hyperglycemia, with long-term current use of insulin (CMS/HCC) Routine health maintenance Varicose veins of both lower extremities with pain Mitral regurgitation Congestive heart failure (CMS/HCC) Impacted third molar tooth Severe dental caries Non-restorable tooth Psoriatic arthritis (CMS/HCC) Proteinuria Hematuria Diabetic polyneuropathy associated with type 2 diabetes mellitus (CMS/HCC) documented in this encounter Miscellaneous Notes * Assessment & Plan Note - BRANDEN Patel - 04/29/2025 8:44 AM EDTAssociated Problem(s): Diabetic polyneuropathy associated with type 2 diabetes mellitus (CMS/HCC) Decreased sensation from mid-calf BLE distally Monofilament exam March 2025: sensation at 0/7 sites tested bilaterally Cont gabapentin 100mg daily, plan to likely inc dose in future Referral to podiatry placed 04/29/25 No NCS/EMG on file, pt denies completing in the past. NCS/EMG order placed for BLE * Assessment & Plan Note - BRANDEN Patel - 04/29/2025 8:42 AM EDTAssociated Problem(s): Hematuria Hematuria noted on point of care UA, confirmed with send out Following with [facility] * Addendum Note - BRANDEN Patel - 04/28/2025 9:00 AM EDTAddended by: MARILEE CORDERO on: 07/06/2025 06:10 PM Modules accepted: Orders documented in this encounter Plan of Treatment Upcoming Encounters Date Type Department Care Team (Late st Contact Info) Description 08/14/2025 1:30 PM EDT Medication Management [facility] [address] [place] [address] Lindsay Nur, PharmD [address] [place] [address] Scheduled Referrals Name Type Priority Associated Diagnoses Orde r Schedule Referral to Podiatry Outpatient Referral Routine Type 2 diabetes mellitus with hyperglycemia, with long-term current use of insulin ([facility]) Diabetic polyneuropathy associated with type 2 diabetes mellitus (CMS/[facility]) Onychauxis Expected: 04/29/2025 (Approximate), Expires: 04/29/2026 Referral to Pharmacy CDTM Outpatient Referral Routine Type 2 diabetes mellitus with hyperglycemia, with long-term current use of insulin ([facility]) Ordered: 04/29/2025 documented as of this encounter Procedures Procedure Name Priority Date/Time Associated Diagnosis Comments URINALYSIS, COMPLETE Routine 04/28/2025 10:10 AM EDT Hematuria, unspecified type POCT URINALYSIS DIPSTICK Routine 04/28/2025 9:45 AM EDT Type 2 diabetes mellitus with hyperglycemia, with long-term current use of insulin ([facility]) POCT GLUCOSE Routine 04/28/2025 9:32 AM EDT Type 2 diabetes mellitus with hyperglycemia, with long-term current use of insulin ([facility]) documented in this encounter Results * (ABNORMAL) Urinalysis Complete (04/28/2025 10:10 AM EDT) Color Urine Yellow [facility] Appearance Urine Clear [facility] PH 5.5 5.0 - 9.0 [facility] Glucose Urine UA >=1000(A) Negative mg/dL [facility] Urine Blood Small (1+)(A) Negative [facility] Specific [place] - Urine 1.020 1.005 - 1.025 [facility] Urine Protein 300 (3+)(A) Neg-Trace mg/dL [facility] Urine Ketones Negative Negative mg/dL [facility] Nitrite Urine Negative Negative [facility] Leukocyte Esterase Urine Negative Negative [facility] RBC Urine 3-5(A) 0 - 2 /HPF [facility] Urine WBC 0-5 0 - 5 /HPF [facility] Urine Squamous Epithelial Cell 0-2 0 - 2 /HPF [facility] Urine Bacteria None Seen None Seen [facility] Hyaline Casts, Urine 3-5 0 - 2 /LPF [facility] GRANULAR CASTS (#/HPF) IN URINE Present [facility] Urine (Urine, Random) 04/28/2025 10:10 AM EDT 04/28/2025 5:57 PM EDT Marilee Cordero WOODWIND INSTRUMENTS INSPECTOR LAB URINE ORDERABLES Final Res ult [facility] [address] [place] [address] [phone] * (ABNORMAL) POCT Urinalysis (04/28/2025 9:45 AM EDT) Color, UA Yellow Clarity, UA Clear Glucose, UA 3+ 500+++ Comment:500mg/dL Bilirubin, UA Negative Ketones, UA Negative Spec Grav, UA 1.025 Blood, UA Positive(A) Negative, None Detected Comment:small pH, UA 5.5 Protein, UA Many Comment:300mg/dL Urobilinogen, UA 0.2 Leukocytes, UA Negative Negative, Rare, Trace Nitrite, UA Negative Negative, None Detected Appearance, UA 403,038 QC Media Lot # [id number] Urine 04/28/2025 9:45 AM EDT us Marilee OTERO POINT OF CARE TEST ENTER/EDIT ORDERABLES Final Result * (ABNORMAL) POCT Glucose (04/28/2025 9:32 AM EDT) Glucose Blood, POC 384(A) 60 - 200 mg/dL Blood Capillary blood specimen / Unknown 04/28/2025 9:32 AM EDT us Marilee OTERO POINT OF CARE TEST ENTER/EDIT ORDERABLES Final Result documented in this encounter Visit Diagnoses Diagnosis Type 2 diabetes mellitus with hyperglycemia, with long-term current use of insulin ([facility])- Primary Hematuria, unspecified type Peripheral nerve disease Mononeuritis of unspecified site Diabetic polyneuropathy associated with type 2 diabetes mellitus ([facility]) Numbness and tingling of right arm Onychauxis Other specified disease of nail Abscess of right lower extremity Bilateral foot-drop Other acquired deformity of ankle and foot documented in this encounter Additional Health Concerns Assessment Noted Time PHQ-9 Depression Total Score: 13 01/27/ 025 8:59 AM EDT documented as of this encounter Care Teams Grain Merchandising Manager Relationship Specialty Start Date End Date Marilee Cordero FNP [address] [place] [address] PCP - General Family Medicine 03/23/23 Cristo Garcia MD [address] [place] [address] [address] [place] [address] Rheumatology 09/01/24 Doris Candelario [address] [place] [address] Cardiology 09/01/24 07/05/25 Yoselyn Lyons [address] [place] [address] Ophthalmology 09/01/24 Balbir Don [address] [facility] [address] [place] [address] Sleep Medicine 09/01/24 Lindsay Nur PharmD [address] [place] [address] Pharmacist Pharmacy 05/29/25 Meño Butcher MD [address] [place] [address] 3rd [place] [address] Cardiology 07/06/25 Dr. Ramirez [address] [facility] [address] [place] [phone] Nephrology 09/01/24 Dania [facility] 03/18/25 05/04/25 documented as of this encounter
[2025-07-10 11:09] VITALS: BP 138/80; PULSE 67; O2SAT 97; BMI 30.9
--- NOTE | 2025-07-10 11:09 | A.OFFVIS_ITS ---
Vital Signs 07/10/25 11:09 Height 6 ft Weight 228 lb BMI 30.9 BP 138/80 Blood Pressure Location Lt brachial Position Sitting Pulse 67 Pulse Source Pulse Oximeter Pulse Oximetry (%) 97 Oxygen Delivery Method Room Air Intake Visit Reasons: Dyspnea on Exertion Intake Note: Patient is here as a new patient for BELL. Patient stated he also has RAKAN. Vehicle Assembly Inspector Required: Yes Vehicle Assembly Inspector Name: Edwina Gilbert Roberts Allergies No Known Allergies Allergy (Verified 07/10/25 11:48) Medication List - Last Reconciled 07/10/25 by Doris Simmons MD acetaminophen 650 mg PO TID PRN aspirin 81 mg PO DAILY atorvastatin 40 mg PO BEDTIME carvedilol 6.25 mg PO BID empagliflozin (Jardiance) 10 mg PO DAILY furosemide (Lasix) 80 mg PO BID ixekizumab (Taltz Autoinjector) 80 mg subcut Q4W metformin ER 500 mg PO BID sacubitril-valsartan 49-51 mg (Entresto) 1 tab PO BID spironolactone 25 mg PO DAILY tamsulosin 0.4 mg PO QPM Do you need a note to return to daycare/school/sports/work: No HPI HPI Dyspnea on Exertion: Details: This 55 years old, Indonesian-speaking gentleman is being seen by me for the 1st time for pulmonary evaluation, and management. His chief complaint is shortness of breath on exertion like walking more than 1 block or climbing stairs . It is all the times, and at night he gets short of breath if he lies flat so he usually sleeps in a propped up position. This has been going on for about 4 years. He denies having attacks of cough or wheezing. He has been in and out of the hospital mostly at [facility] and 1 time at [facility], He claims that he has been treated for congestive heart failure, Denies chest pain, has had a nuclear stress test performed but he does not know the exact report. In the past he has been followed up by [facility] Cardiology team but currently has been seen by Dr. Simon. HE GIVES HISTORY OF BEING TREATED FOR SLEEP APNEA SINCE ABOUT 80 YEARS AGO, HAD THE POLYSOMNOGRAM STUDY AT [facility], AND I WAS ABLE TO TRACE THAT STUDY REPORT. HE WAS TREATED WITH CPAP, WHICH HE USE FOR A FEW YEARS, CURRENTLY FOR THE LAST 4 YEARS OR SO HE IS NOT USING IT, THE MACHINE IS QUITE OLD. ACCORDING TO HIS HE DOES SNORE HEAVY AT NIGHT, WAKES UP A FEW TIMES DURING THE NIGHT, HE REMAINS TIRED AND SLEEPY DURING THE DAY. ECHOCARDIOGRAM PERFORMED ON 03/11/25 . I HAVE REVIEWED THE REPORT STATING LVEF 45-50 AND RVSP 49 ( MODERATE PULMONARY HYPERTENSION ) PATIENT DENIES SMOKING AND ALSO DENIES ALCOHOL ABUSE. [facility] Medical History (Updated 07/10/25 @ 12:10 by Doris Simmons MD) Dyspnea on minimal exertion Pulmonary hypertension Dyspnea on exhalation RAKAN (obstructive sleep apnea) CHF (congestive heart failure) Psoriasis Psoriatic arthritis Hypercholesteremia Lumbago with sciatica, right side Elev transaminase/LDH Neuropathy Diabetes Psoriasis Family History Father Diabetes HTN (hypertension) Mother Diabetes Social History Household Members: Spouse Housing: House Do you presently have visiting nurse or other home services: No Alcohol intake: never Patient Tobacco Use Status: Never used Tobacco e-Cigarette/Vaping Use: Never Used service: No Current occupational status: employed Current occupation: [employer] Review of Systems Const All systems reviewed & are unremarkable except as noted in HPI and below Eyes Reports no additional complaints ENT Reports no additional complaints Card Denies chest pain, Denies irregular heart rhythm, Reports dyspnea on exertion and Reports orthopnea Resp Reports as per HPI and Reports dyspnea on exertion GI Reports no additional complaints Reports nocturia Musc Reports muscle weakness (General muscular weakness) Skin/Breast Reports other (Changes of stasis dermatitis over the legs) Neuro Reports no additional complaints Psych Reports no additional complaints Endo Reports other (Being treated for diabetes mellitus) Faustino/Lymph Reports no additional complaints Aller/Immun Reports no additional complaints Physical Exam Vital Signs: Last Vital Signs Pulse 67 07/10/25 11:09 BP 138/80 07/10/25 11:09 Pulse Ox 97 07/10/25 11:09 Oxygen Delivery Method Room Air 07/10/25 11:09 BMI result Body Mass Index 30.9 Const General: comfortable, no acute distress, alert and awake Orientation/consciousness: patient oriented x3 HEENT Head: Yes normal to inspection General nose exam: No nasal polyps present and No nasal discharge present Face and sinus: Yes sinuses nontender Mouth: oropharynx abnormals (Narrow and crowded Mallampati scale 4) Throat: Yes posterior oropharynx normal Eyes General: appearance normal, both eyes and all related structures Neck Neck: Yes normal visual inspection, Yes no lymphadenopathy, Yes trachea midline and Yes no JVD Thyroid: Thyroid normal Chest Chest palpation & inspection: normal inspection of the chest, normal palpation of entire chest wall and no tenderness Resp Effort & Inspection: normal respiratory effort Auscultation: clear to auscultation bilaterally, no crackles and no wheezes Cardio Palpation: normal PMI Rate: regular rate Rhythm: regular rhythm Heart sounds: no gallops and no murmurs Peripheral pulses: Peripheral pulses 2+ throughout GI Palpation (GI): Soft to palpation, nontender, No hepatosplenomegaly present and no masses Auscultation: normal bowel sounds Back/Spine/Pelvis Thoracic/Lumbar Spine: thoracic and lumbar spine normal to inspection Skin General skin exam: other (Stasis dermatitis lesions over the legs) Neuro General: patient oriented x3 and no focal motor deficits Cranial nerves: Yes CN's II-XII intact bilaterally Extrem General: Yes normal to inspection, Yes no clubbing, cyanosis or edema, Yes no calf tenderness and Yes venous stasis dermatitis (Both legs worse on the left side) Psych Appearance: grossly normal and well kempt Speech and movement: Normal speech and movement present Results Reviewed Results Reviewed: chest xray 03/11/2024 cardiomegaly is noted , lung volumes are small, with prominent bronchovascular marking. Echocardiogram 03/11/2024 LVEF 45-50 RVSP 49 POLYSOMNOGRAM STUDY 2017 OBSTRUCTIVE SLEEP APNEA MODERATELY SEVERE, TREATED WITH FULLFACE MASK Assessment & Plan Assessment & Plan (1) RAKAN (obstructive sleep apnea): Comment: THIS GENTLEMAN DOES HAVE SYMPTOMS AND HISTORY C/W OBSTRUCTIVE SLEEP APNEA, WHICH WAS CONFIRMED BY POLYSOMNOGRAM STUDY IN 2017. HE HAS HISTORY OF USING CPAP FOR SOME YEARS IN THE PAST BUT STOPPED USING UTERUS AGO BECAUSE THE CPAP MACHINE IS TOO OLD. THIS UN TREATED SLEEP APNEA , MAY BE CONTRIBUTING TO HIS PULMONARY HYPERTENSION. Code(s): G47.33 - Obstructive sleep apnea (adult) (pediatric) Category: Medical Plan: PATIENT NEEDS A NEW POLYSOMNOGRAM STUDY, IN HIS SLEEP LAB, BECAUSE HE MAY NEED CPAP TITRATION. DISCUSSED WITH THE PATIENT AND HIS AND EDUCATED THEM ABOUT THE RELATIONSHIP BETWEEN PULMONARY HYPERTENSION, AND CONGESTIVE HEART FAILURE. (2) Pulmonary hypertension: Comment: PATIENT EDUCATED ABOUT PULMONARY HYPERTENSION, THIS SEEMS TO BE PRIMARILY OF CARDIAC ORIGIN. HE IS BEING TREATED FOR CHRONIC CONGESTIVE HEART FAILURE, AFTER DOING THE POLYSOMNOGRAM STUDY HE WILL NEED CPAP THERAPY. Code(s): I27.20 - Pulmonary hypertension, unspecified Category: Medical Plan: DESCRIBED ABOVE WE ARE PROCEEDING WITH POLYSOMNOGRAM STUDY AND WILL BE RESTARTING HIM ON CPAP THERAPY (3) Chronic combined systolic and diastolic CHF (congestive heart failure): Comment: PATIENT IS BEING FOLLOWED BY CARDIOLOGY SERVICE. HE HAS COMBINED SYSTOLIC WELL DIASTOLIC CONGESTIVE HEART FAILURE. Code(s): I50.42 - Chronic combined systolic (congestive) and diastolic (congestive) heart failure Category: Medical Plan: PATIENT IS ADVISED THAT HE NEEDS TO CONTINUE FOLLOWING UP WITH THE CARDIOLOGY SERVICE VERY CLOSELY. (4) Dyspnea on minimal exertion: Comment: HIS MAIN COMPLAINT TODAY WAS DYSPNEA ON EXERTION. HE ALSO HAS MILD ORTHOPNEA AND HAS TO SLEEP WITH PROPPED UP HAD SIDE. . DYSPNEA IS MAINLY OF CARDIAC ORIGIN, BUT WE NEED TO CHECK HIM FOR ANY PULMONARY DISEASE SUCH COPD Code(s): R06.09 - Other forms of dyspnea Category: Medical Plan: PLANNING TO DO COMPLETE PULMONARY FUNCTION TEST, HAS BEEN EXPLAINED TO THE PATIENT AND HIS . Orders: Orders RT PSG in-lab sleep study Today G47.33 - Obstructive sleep apnea (adult) (pediatric), I27.20 - Pulmonary hypertension, unspecified, R06.09 - Other forms of dyspnea PFT pulmonary function test Today I27.20 - Pulmonary hypertension, unspecified, R06.09 - Other forms of dyspnea Coding Level of Care Code New Pt Level 4 (84569) Diagnoses RAKAN (obstructive sleep apnea) G47.33 Pulmonary hypertension I27.20 Chronic combined systolic and diastolic CHF (congestive heart failure) I50.42 Dyspnea on minimal exertion R06.09
--- OUTSIDE RECORDS SUMMARY | 2025-07-10 15:24 | XMS_ITS | Encounter Summary ---
Author Organization [employer] Address [address] [facility] 7t [place] [address] Care Team Providers Care Straw Baler Name Role Phone Marilee Cordero GRAPHICS MANAGER Primary Care Provider [phone] Cristo Garcia MD Unavailable Doris Candelario Unavailable [phone] Yoselyn Lyons Unavailable Unavailable Balbir Don Unavailable Lindsay NurD Unavailable [phone] Meoñ Butcher MD Unavailable [phone] Reason for Visit * Reason Comments Med Refill Encounter Details Date Type Department Care Team (Late st Contact Info) Description 07/23/2023 Refill [facility] [address] [place] [address] Donavan Mcgee AGNP Social History Tobacco Use [...] Description 08/14/2025 1:30 PM EDT Medication Management [facility] [address] [place] [address] Lindsay Nur PharmD [address] [place] [address] documented as of this encounter Visit Diagnoses Not on filedocumented in this encounter Additional Health Concerns Assessment Noted Time PHQ-9 Depression Total Score: 1 10/17/20 22 10:05 AM EST documented as of this encounter Care Teams Straw Baler Relationship Specialty Start Date End Date Marilee Cordero FNP [address] [place] [address] PCP - General Family Medicine 03/23/23 Cristo Garcia MD [address] [place] [address] Rheumatology 09/01/24 Doris Candelario [address] [place] [address] Cardiology 09/01/24 07/05/25 Yoselyn Lyons 180 [place] [address] Ophthalmology 09/01/24 Balbir Don 22 [facility] 301 [place] [address] Sleep Medicine 09/01/24 Lindsay Nur, PharmD 230 [place] [address] Pharmacist Pharmacy 05/29/25 Meño Butcher MD [address] [place] [address] 3rd [place] [address] Cardiology 07/06/25 Dr. Ramirez [address] [address] Nephrology 09/01/24 [facility] 03/18/25 05/04/25 documented as of this encounter
--- OUTSIDE RECORDS SUMMARY | 2025-07-10 15:24 | XMS_ITS | Encounter Summary ---
Author Organization [employer] Address [address] [place] [address] 7t [place] [address] Care Team Providers Care Hydraulic Pile Hammer Operator Name Role Phone Marilee Cordero Primary Care Provider [phone] Cristo Garcia MD Unavailable Doris Candelario Unavailable [phone] Yoselyn Lyons Unavailable Unavailable Balbir Don Unavailable Lindsay Nur PharmD Unavailable [phone] Meño Butcher MD Unavailable [phone] Reason for Referral * Consultation (Routine) - Closed Specialty Diagnoses / Procedures Referred By Contzena t Referred To Contact Nephrology Diagnoses Albuminuria Marilee Cordero FNP [address] [place] [address] Phone: tel: fax: Bayron Marshall MD [facility] [address] [place] [address] Phone: tel: fax: Referral ID Status Reason Start Date Expiration Date V isits Requested Visits Authorized [id number] Closed Specialty Services Required 12/29/2023 12/28/2024 1 1 Encounter Details Date Type Department Care Team (Late st Contact Info) Description 12/29/2023 Orders Only [facility] [address] [place], [place] [phone] Marilee Cordero FNP 505 [place], [place] [phone] Albuminuria (Primary Dx) Social History Tobacco Use [...] Description 08/14/2025 1:30 PM EDT Medication Management [facility] [address] [place] [address] Lindsay Nur, PharmD 230 [place] [address] documented as of this encounter Procedures Procedure [...] documented as of this encounter Care Teams Hydraulic Pile Hammer Operator Relationship Specialty Start Date End Date Marilee Cordero FNP [address] [place] [address] PCP - General Family Medicine 03/23/23 Cristo Garcia MD [address] [place] [address] Rheumatology 09/01/24 Doris Candelario [address] [place] [address] Cardiology 09/01/24 07/05/25 Yoselyn Lyons 180 [place] [address] Ophthalmology 09/01/24 Balbir Don 22 [facility] 301 [place] [address] Sleep Medicine 09/01/24 Lindsay Nur PharmD 230 [place] [address] Pharmacist Pharmacy 05/29/25 Meño Butcher MD [address] [place] [address] 3rd [place] [address] Cardiology 07/06/25 Dr. Ramirez [facility] [address] [place] [address] Nephrology 09/01/24 Noman LAWRENCE 03/18/25 05/04/25 documented as of this encounter
--- OUTSIDE RECORDS SUMMARY | 2025-07-10 15:24 | XMS_ITS | Encounter Summary ---
Author Organization [employer] Address [address] [facility] 7t [place] [address] Care Team Providers Care Superintendent Seed Mill Name Role Phone Marilee Cordero STORE RECEIVING CLERK Primary Care Provider [phone] Cristo Garcia MD Unavailable Doris Candelario Unavailable [phone] Yoselyn Lyons Unavailable Unavailable Balbir Don Unavailable Lindsay NurD Unavailable [phone] Meño Butcher MD Unavailable [phone] Encounter Details Date Type Department Care Team (Late st Contact Info) Description 08/11/2023 Abstract [facility] [address] [place], [place] [phone] Gavino Lacey, DIANA [address] [place], [place] [id number] Social History Tobacco Use Types Packs/Day Years Used Date Smoking Tobacco: Never Smokeless Tobacco: Never Alcohol Use Standard Drinks/Week Comments Never 0 (1 standard drink = 0.6 oz pur e alcohol) Depression Answer Date Recorded Patient Health Questionnaire-9 Score 1 10/17/2022 Housing Stability Answer Date Recorded What is your housing situation today? I have claytonivan sanchez 08/10/[address] you [...] Description 08/14/2025 1:30 PM EDT Medication Management [facility] [address] [place] [address] Lindsay Nur PharmD [address] [place] [address] documented as of this encounter Visit Diagnoses Not on filedocumented in this encounter Additional Health Concerns Assessment Noted Time PHQ-9 Depression Total Score: 1 10/17/20 22 10:05 AM EST documented as of this encounter Care Teams Superintendent Seed Mill Relationship Specialty Start Date End Date Marilee Cordero FNP [address] [place] [address] PCP - General Family Medicine 03/23/23 Cristo Garcia MD [address] [place] [address] [place] [address] Rheumatology 09/01/24 Doris Candelario [address] [place] [address] Cardiology 09/01/24 07/05/25 Yoselyn Lyons [address] [place] [address] Ophthalmology 09/01/24 Balbir Don [address] [facility] [address] [place] [address] Sleep Medicine 09/01/24 Lindsay Nur PharmD [address] [place] [address] Pharmacist Pharmacy 05/29/25 Meño Butcher MD [address] [place] [address] 3rd [place] [address] Cardiology 07/06/25 Dr. Ramirez 100 [facility] 200 [place] [address] Nephrology 09/01/24 [facility] 03/18/25 05/04/25 documented as of this encounter
--- OUTSIDE RECORDS SUMMARY | 2025-07-10 15:24 | XMS_ITS | Encounter Summary ---
Author Organization [employer] Address 75 [facility] 7t [place] [address] Care Team Providers Care Metal Products Viewer Name Role Phone Marilee Cordero Primary Care Provider [phone] Cristo Garcia MD Unavailable Yoselyn Lyons Unavailable Unavailable Balbir Don Unavailable Lindsay Nur PharmD Unavailable [phone] Meño Butcher MD Unavailable [phone] Encounter Details Date Type Department Care Team (Late st Contact Info) Description 07/08/2025 Results Follow-Up [facility] [address] [place], [place] [phone] Marilee Cordero FNP [address] [place], [place] [phone] Lipid Panel, Standard, Vitamin B12/Folate, Serum Panel Social History Tobacco Use Types Packs/Day Years [...] Description 08/14/2025 1:30 PM EDT Medication Management [facility] [address] [place] [address] Lindsay Nur, PharmD [address] [place] [address] documented as of this encounter Visit Diagnoses Not on filedocumented in this encounter Additional Health Concerns Assessment Noted Time PHQ-9 Depression Total Score: 13 025 8:59 AM EDT documented as of this encounter Care Teams Metal Products Viewer Relationship Specialty Start Date End Date Marilee Cordero FNP [address] [place] [address] PCP - General Family Medicine 03/23/23 Cristo Garcia MD [address] [place] [address] Rheumatology 09/01/24 Yoselyn Lyons [address] [place] [address] Ophthalmology 09/01/24 Balbir Don 22 [facility] [address] [place] [address] Sleep Medicine 09/01/24 Lindsay Nur PharmD [address] [place] [address] Pharmacist Pharmacy 05/29/25 Meño Butcher MD [address] [place] [address] 3rd [place] [address] Cardiology 07/06/25 Dr. Ramirez 100 [facility] 200 [place] [address] Nephrology 09/01/24 documented as of this encounter
--- OUTSIDE RECORDS SUMMARY | 2025-07-10 15:24 | XMS_ITS | Encounter Summary ---
Author Organization [employer] Address 75 [facility] 7t [place] [address] Care Team Providers Care Data Compiler Name Role Phone Marilee Cordero Primary Care Provider [phone] Cristo Garcia MD Unavailable Doris Candelario Unavailable [phone] Yoselyn Lyons Unavailable Unavailable Balbir Don Unavailable Lindsay NurD Unavailable [phone] Meño Butcher MD Unavailable [phone] Reason for Visit * Reason Onset Date Comments Hospital Follow-up 03/17/2025 Encounter Details Date Type Department Care Team (Late st Contact Info) Description 03/17/2025 Telephone [facility] MEDIC[facility] [address] [place] [address] Marilee Cordero FNP [address] [place], [place] [phone] Hospital Follow-up Social History Tobacco Use Types [...] AM EDT Tc from pt requesting a HDF appt. [place] [facility] [place]: 03/11/25 Discharge date: 03/15/25 Diagnosed: Leg pain and goes up to back *Send message to [facility] Clinical Care Coordinators documented in this encounter Plan of Treatment Upcoming Encounters Date Type Department Care Team (Late st Contact Info) Description 08/14/2025 1:30 PM EDT Medication Management [facility] [address] [place] [address] Lindsay Nur, PharmD [address] [place] [address] documented as of this encounter Visit Diagnoses Not on filedocumented in this encounter Additional Health Concerns Assessment Noted Time PHQ-9 Depression Total Score: 13 03/31/2 025 8:59 AM EDT documented as of this encounter Care Teams Data Compiler Relationship Specialty Start Date End Date Marilee Cordero FNP [address] [place] [address] PCP - General Family Medicine 03/23/23 Cristo Garcia MD [address] [place] [address] [address] [place] [address] Rheumatology 09/01/24 Dorsi Candelario [address] [place] [address] Cardiology 09/01/24 07/05/25 Yoselyn Lyons 180 [place] [address] Ophthalmology 09/01/24 Balbir Don 22 [facility] 301 [place] [address] Sleep Medicine 09/01/24 Lindsay Nur PharmD [address] [place] [address] Pharmacist Pharmacy 05/29/25 Meño Butcher MD [address] [place] [address] 3rd [place] [address] Cardiology 07/06/25 Dr. Ramirez 100 [facility] 200 [place] [address] Nephrology 09/01/24 [facility] 03/18/25 05/04/25 documented as of this encounter
--- OUTSIDE RECORDS SUMMARY | 2025-07-10 15:24 | XMS_ITS | Clinical Summary ---
Author Organization [employer] Address [address] [place] [address] Care Team Providers Care Evaporator Supervisor Name Role Phone Marilee Cordero BRANDEN Primary Care Provider [phone] Cristo Garcia MD Unavailable Yoselyn Lyons Unavailable Unavailable Balbir Don Unavailable Lindsay Nur PharmD Unavailable [phone] Meño Butcher MD Unavailable [phone] Allergies No known active allergies Medications Blood Pressure kit Use daily Active Blood Glucose Monitoring Suppl (FreeStyle [place] Lite) w/Device kit 1 each by Other [...] hyperglycemia, with long-term current use of insulin ([facility]) Subcutaneous once daily use with lantus pen 100 each 3 3 Active gabapentin (Neurontin) 100 MG capsuleIndicati ons:Peripheral nerve disease TAKE 1 CAPSULE BY MOUTH EVERY EVENING (for nerve pain) 90 capsule 1 3 Active metFORMIN XR (Glucophage-XR) 500 MG 24 hr tabletIndicatio ns:Type 2 diabetes mellitus with hyperglycemia, with long-term current use of insulin ([facility]/HCC) TAKE 1 TABLET BY MOUTH TWICE DAILY [...] Problem Noted Date Diagnosed Date Hematuria 04/29/2025 Overview (07/06/2025): Following with [facility] - Dr. Cramer Assessment & Plan (07/06/2025 6:01 PM EDT): - Consult March 2025: Possible causes including nephrolithiasis, BPH, UTI, cancer. - Urine cytopath negative for high-grade urothelial carcinoma - Plan: PSA. Schedule a CT urogram. Plan for cystoscopy to directly visualize the bladder and urethra. Assessment & Plan (04/29/2025 8:42 AM EDT): Hematuria noted on point of care UA, confirmed with send out Following with [facility] Diabetic polyneuropathy asso ciated with type 2 diabetes mellitus 04/29/2025 Assessment & Plan (07/06/2025 6:03 PM EDT): Decreased sensation from mid-calf BLE distally Monofilament exam March 2025: sensation at 0/7 sites tested bilaterally Cont gabapentin 100mg daily, plan to likely inc dose in future Referral to podiatry placed 04/29/25 No NCS/EMG on file, pt denies completing in the past. NCS/EMG order placed for BLE Assessment & Plan (04/29/2025 8:52 AM EDT): [...] Followed by [facility] - Dr. James Hogan 10mg daily Psoriatic arthritis 08/30/2024 Overview (04/01/2025): Followed by [facility] - Dr. Garcia Med therapy: DMARD (Derik) Previous tx: methotrexate and Enbrel (hx of failed Humira tx in Rheum note 02/04/21). Plan to hold methotrexate with hx cardiac conditions Assessment & Plan (07/06/2025 6:03 PM EDT): Much improved with Taltz therapy Assessment & Plan (09/01/2024 1:13 PM EST): Plan to start first dose on 09/01/24 Impacted third molar tooth 03/18/2024 Severe dental caries 03/18/2024 Non-restorable tooth 03/18/2024 Congestive heart failure 11/26/2023 Overview (07/06/2025): [facility], established with [facility] - Dr. Butcher April: Nuclear stress test: Negative ECG portion of [...] Hospitalization for CHF exacerbation: Oct 2023 at [facility] - Reviewed condition and concerning signs/symptoms Pharmacotherapy: Aspirin 81mg daily Atorvastatin 40mg nightly Furosemide 40mg BID (RX nephrology) Spironolactone 25mg daily (RX cards) Jardiance 25mg daily Carvedilol 6.25mg BID Entresto 24-26mg BID Assessment & Plan (04/01/2025 7:07 PM EDT): Follow-up with [facility] cards as scheduled in April 2025. Reports they are already on wait list in case anything sooner becomes available. Assessment & Plan (01/27/2025 9:50 AM EDT): Cont current therapy, symptomatic SOB/BELL Referral to [facility] for further eval Assessment & Plan [...] long-term current use of insulin 10/17/2022 Overview (07/06/2025): Lab Results Component Value Date HGBA1C 10.8 (A) 06/26/2025 HGBA1C 10.8 (A) 03/31/2025 HGBA1C 10.9 (A) 01/27/2025 HGBA1C 12.7 (A) 08/30/2024 HGBA1C 6.8 (A) 02/26/2024 HGBA1C 7.4 (H) 04/27/2022 HGBA1C 12.0 (H) 01/26/2022 -CGM denied by insurance 2023 d/t not injecting insulin multiple times per day Med regimen: Cont Lantus 10 units at bedtime Cont metformin 500mg BID Trulicity 1.5mg subcutaneous weekly Jardiance 25mg daily -Denies red flag symptoms, ED precautions reviewed -Microalbumin: above normal limits, following with renal for proteinuria -Established with [facility] CDTM Assessment & Plan (04/01/2025 7:01 PM EDT): - Initial BG reading [facility]. Repeat value [facility] s/p 10 units lispro. Re-check #3 resulted 436 s/p second dose of 10 units insulin lispro. Pt unable to void for UA. Discussed ED precautions. - Previous rx of Jardiance 10mg daily (rx through [facility] - unclear if currently taking) - No [...] tx in Rheum note 02/04/21) -Re-established with [facility] Nov 2021, last consult appt December 2023 Plan to hold methotrexate with hx cardiac conditions Taltz injections through Rheum with notable improvement Assessment & Plan (03/03/2024 2:42 PM EDT): -Previous tx with methotrexate and Enbrel (hx of failed Humira tx in Rheum note 02/04/21) -Re-established with [facility] Nov 2021, last consult appt December 2023 Plan to hold methotrexate with hx cardiac conditions Authorization for Taltz is pending Assessment & Plan (08/11/2023 1:16 PM EDT): -Previous tx with methotrexate and Enbrel (hx of failed Humira tx in Rheum note 02/04/21) -Re-established with [facility] Nov 2021 Says may have re-started on methotrexate but unsure. Will bring med list to next appt. -Pt was also referred to [facility] Derm Team, appt pending Assessment & Plan (04/12/2023 1:37 PM EDT): -Previous tx with methotrexate and Enbrel (hx of failed Humira tx in Rheum note 02/04/21) -Re-established with [facility] Nov 2021 Says may have re-started on methotrexate but unsure. Will bring med list to next appt. -Pt was also referred to [facility] Derm Team, appt pending Assessment & Plan (10/20/2022 9:18 AM EST): -Previous tx with methotrexate and Enbrel (hx of failed Humira tx in Rheum note 02/04/21) -Reports has not been taking any meddications for psoriasis in > 6 month, interested in re-establishing with specialists -Upcoming appt with [facility] Nov 2021 -Pt was also referred to [facility] Derm Team, appt pending Hypertension 06/13/2012 [...] apnea syndrome 06/13/2012 Overview (09/01/2024): [facility] with [facility] - Dr. Balbir Don Cont w/ CPAP, need updated titration report (home sleep study ordered Jul 2024 per specialist) Assessment & Plan (08/13/2023 8:36 AM EDT): Continues with CPAP nightly Due for settings adjustment, and also reporting intermittent discomfort with mask Referral to [facility] for further eval and management Resolved Problems Problem Noted Date Diagnosed Date Resolved Date Retention of urine 02/26/2015 3 Elevated levels of transamin ase & lactic acid dehydrogenase 08/14/2012 10/20/2022 Encounters Date Type Department Care Team Description 07/08/2025 Results Follow-Up [facility] [address] [place] [address] Marilee Cordero FNP Lipid Panel, Standard, Vitamin B12/Folate, Serum Panel 07/04/2025 8:30 AM EDT Office Visit [facility] [address] [place] [phone] Marilee Cordero FNP Type 2 diabetes mellitus with hyperglycemia, with long-term current use of insulin ([facility]) (Primary Dx); Dietary counseling; Exercise counseling; Hematuria, unspecified type; Psoriatic arthritis (CMS/HCC); Diabetic polyneuropathy associated with type 2 diabetes mellitus (CMS/HCC); Congestive heart failure, unspecified HF chronicity, unspecified heart failure type (CMS/HCC); Numbness and tingling in both hands 07/04/2025 Orders Only GENERIC EXTERNAL DATA DEPARTMENT Provider, Generic External Data 07/04/2025 Travel 07/03/2025 Telephone [facility] [address] [place] [address] Marilee Cordero FNP chart prep 06/26/2025 Travel 05/29/2025 Travel 04/30/2025 Telephone [facility] MEDICINE [address] [place], [place] [phone] Marilee Cordero FNP Call Back Request 04/29/2025 Telephone [facility] MED[facility] [address] [place] [address] Marilee Cordero FNP 04/29/2025 Telephone [facility] PEDS [address], [place] [phone] Marilee Cordero FNP DME: COLIN DYE 04/28/2025 9:00 AM EDT Office Visit [facility] [address], [place] [phone] Marilee Cordero FNP Type 2 diabetes mellitus with hyperglycemia, with long-term current use of insulin ([facility]) (Primary Dx); Hematuria, unspecified type; Peripheral nerve disease; Diabetic polyneuropathy associated with type 2 diabetes mellitus ([facility]); Numbness and tingling of right arm; Onychauxis; [...] Description 08/14/2025 1:30 PM EDT Medication Management [facility] [address] [place] [address] Lindsay Nur, PharmD [address], [place] [phone] Health Maintenance Due Date Last Done Comments CT Colonography 1970 Colonoscopy 1970 Colorectal Cancer Screening 1970 FIT DNA/Cologuard 1970 FIT 1970 FOBT 1970 Sigmoidoscopy 1970 Eye Exam 1980 Hepatitis B Vaccines (1 of 3 - 19+ 3-dose series) 1989 09/27/2005, 05/31/2005, 03/24/2005 Dental Prophylaxis 11/10/2012 05/09/2012, 0 12/13/2011, 07/22/2009 Dental Oral Exam 07/11/2014 01/07/2014 Dental X-Ray: Bitewings 08/12/2024 08/11/20 23, 01/07/2014, 10/01/2010, Additional history exists Diabetes: Urine Protein Screening 12/25/2024 12/25/2023, 09/13/2023, 01/26/2022, Additional history exists COVID-19 Vaccine ( season) 2025 01/14/2022, 03/03/2021, 02/03/2021 Influenza Vaccine (#1) 2025 , 08/11/2023, 10/17/2022, Additional history exists Depression Monitoring 07/29/2025 01/27/2025, 025 SDOH Screening 08/30/2025 08/30/2024 Diabetes: Hemoglobin A1C 09/26/2025 025, 03/31/2025, 01/27/2025, Additional history exists Tobacco Screening 03/05/2026 03/05/2025 Alcohol/Substance Use Screening 04/28/2026 04/28/2025 Diabetes: Foot Exam 04/28/2026 04/28/2025, 04/28/2025, 10/17/2022, Additional history exists Disability Screening 04/28/2026 04/28/2025 Lipid Panel 07/04/2026 07/04/2025, 08/30, 04/27/2022, Additional history exists Dental X-Ray: Full Mouth [...] Procedure Name Priority Date/Time Associated Diagnosis Comments SED RATE BY MODIFIED WESTERGREN Routine 07/04/2025 10:07 AM EDT C-REACTIVE PROTEIN Routine 07/04/2025 10 :07 AM EDT COMPREHENSIVE METABOLIC PANEL Routine 07/04/2025 10:07 AM EDT CBC WITH AUTO DIFFERENTIAL Routine 07/04/2025 10:07 AM EDT VITAMIN B12/FOLATE, SERUM PANEL Routine 07/04/2025 10:07 AM EDT Type 2 diabetes mellitus with hyperglycemia, with long-term current use of insulin (CMS/HCC) METHYLMALONIC ACID Routine 07/04/2025 10 :07 AM EDT Type 2 diabetes mellitus with hyperglycemia, with long-term current use of insulin (CMS/HCC) LIPID PANEL, STANDARD Routine 07/04/2025 10:07 AM EDT Type 2 diabetes mellitus with hyperglycemia, with long-term current use of insulin (CMS/HCC) POCT GLYCATED HEMOGLOBIN, TOTAL Routine 06/26/2025 1:35 PM EDT Type 2 diabetes mellitus with hyperglycemia, with long-term current use of insulin (CMS/HCC) CYTOPATH-CELL ENHANCED Routine 3:00 PM EDT URINALYSIS, COMPLETE Routine 04/28/2025 10:10 AM EDT Hematuria, unspecified type POCT URINALYSIS DIPSTICK Routine 04/28/2025 9:45 AM EDT Type 2 diabetes mellitus with hyperglycemia, with long-term current use of insulin (CMS/HCC) POCT GLUCOSE Routine 04/28/2025 9:32 AM EDT Type 2 diabetes mellitus with hyperglycemia, with long-term current use of insulin (CMS/HCC) HEPATITIS PANEL, GENERAL Routine 02/26/2025 7:32 AM EDT PANORAMIC RADIOGRAPHIC IMAGE Routine 03/18/2024 9:00 AM EDT ALBUMIN, RANDOM URINE W/CREATININE Routine 12/25/2023 9:50 AM EST Type 2 diabetes mellitus with hyperglycemia, with long-term current use of insulin ([facility]) HIV 1/2 ANTIGEN/ANTIBODY, FOURTH GENERATION W/RFL Routine 09/13/2023 7:53 AM EST Physical exam BITEWING - SINGLE RADIOGRAPHIC IMAGE Routine 08/11/2023 11:30 AM EDT PERIODIC ORAL EVALUATION - ESTABLISHED PATIENT Routine 01/07/2014 12:00 AM EDT PROPHYLAXIS - ADULT Routine 05/09/2012 1 2:00 AM EDT from Last 3 Months or Most Recently Relevant to Health Maintenance Results * Vitamin B12/Folate, Serum Panel (07/04/2025 10:07 AM EDT) Vitamin B12 237 200 - 900 pg/mL [facility] Comment:NORMAL 200-900 PG/ML INDETERMINATE 160-199 PG/ML DEFICIENT < 160 PG/ML Folate 9.4 > or = 4.0 ng/mL [facility] Comment:Reference Values:> o r = 4.0 ng/mL< 4.0 ng/mL suggests folate deficiency Methotrexate, aminopterin and folinic acid(leucovorin) are chemotherapeutic agents whose molecularstructures are similar to folate; therefore, the Architectfolate assay cannot be used for patients using these drugs. Blood Venous blood specimen / Unknown 07/04/2025 10:07 AM EDT 07/04/2025 11:47 AM EDT us Marilee Cordero [employer]MENT INTER[employer] LAB BLOOD ORDERABLES Final Res ult [facility] [address] [place] [phone] * (ABNORMAL) CBC auto differential (07/04/2025 10:07 AM EDT) White Blood Count 6.5 4.8 - 10.8 X10*3/uL [facility] Red Blood Count 4.74 4.60 - 5.80 X10*6/uL [facility] Hemoglobin 13.7(L) 14.0 - 18.0 g/dl [facility] Hematocrit 39.5(L) 42.0 - 52.0 % [facility] Mean Corpuscular Volume 83.3 80.0 - 98.0 fL [facility] Mean Corpuscular Hemoglobin 28.9 27.0 - 33.0 pg [facility] Mean Corpuscular HGB Conc 34.7 31.0 - 36.0 g/dl [facility] Red Cell Distribution Width 12.9 11.0 - 16.0 % [facility] Platelet Count 186 160 - 400 X10*3/uL [facility] Mean Platelet Volume 9.4 9.4 - 12.4 fL [facility] Neutrophils Percent Auto 80.1(H) 45 - 73 % [facility] Imm Gran Pct Auto 0.3 0.0 - 0.4 % [facility] Lymphocytes Percent Auto 7.8(L) 20 - 40 % [facility] Monocytes Percent Auto 9.5 2 - 11 % [facility] Eosinophils Percent Auto 1.8 0 - 4 % [facility] Basophils Percent Auto 0.5 0 - 2 % [facility] NRBC Pct Auto 0.0 0.0 - 0.2 /100WBC [facility] Neutrophils Absolute Auto 5.2 2.0 - 8.3 x10*3/uL [facility] Imm Gran Abs Auto 0.02 0.00 - 0.03 X10*3/uL [facility] Lymphocytes Absolute Auto 0.5(L) 1.2 - 4.9 X10*3/uL [facility] Monocytes Absolute Auto 0.6 0.1 - 1.2 X10*3/uL [facility] Eosinophils Absolute Auto 0.1 0.0 - 0.4 X10*3/uL [facility] Basophils Absolute Auto 0.0 0.0 - 0.2 X10*3/uL [facility] NRBC Abs Auto 0.000 0.0 - 0.012 X10*3/uL [facility] 07/04/2025 10:0 7 AM EDT 07/04/2025 11:47 AM EDT us Generic External Data Provider LAB BLOOD ORDERAB LES Final Result [facility] [address] [place] [phone] * Methylmalonic Acid (07/04/2025 10:07 AM EDT) Methylmalonic Acid 225 55 - 335 nmol/L [facility] Comment: Serum methylmalonic acid (MMA) levels are used todiagnose and monitor several rare inborn errors ofmetabolism, including methylmalonic aciduria. Theenzymatic conversion of MMA to succinic acid requiresvitamin B12 (adenosyl-cobalamin) as a cofactor. SerumMMA levels are also used for assessing functionalvitamin B12 deficiency. Vitamin B12 is essential forfetal neurodevelopment, particularly early inpregnancy. Undiagnosed maternal vitamin B12 deficiencymay be associated with adverse / outcomes,such as neural tube defects and intrauterine growthrestriction.[employer] utilized Multi-Modal Decomposition(MMD) analysis to establish first and second trimester-specific MMA reference intervals in , as givenbelow:MMA, First trimester (<13 wks gestation): 58-167 nmol/LMMA, Second trimester (13-23 wks gestation):63-241 nmol/LThis test was developed and its analytical performancecharacteristics have been determined by [employer]. It has not been cleared or approved by theFDA. This assay has been validated pursuant to the CLIAregulations and is used for clinical purposes.THIS TEST WAS PERFORMED AT:[id number] [place] [address]ABRAZBBEDWIN RANDHAWA MD,PHD Blood Venous blood specimen / Unknown 07/04/2025 10:07 AM EDT 07/04/2025 11:47 AM EDT us Marilee Cordero [employer] LAB BLOOD ORDERABLES Final Res ult Performing Organization Address [facility] Co de Phone Number [facility] [address] [place] [phone] * (ABNORMAL) Sed Rate by Modified Wilbur (07/04/2025 10:07 AM EDT) Erythrocyte Sedimentation Rate 28(H) 0 - 15 MM/HR [facility] Comment:Patients with polycy themia and many hemoglobin abnormalitiesmay have depressed sed rates whereas patients with anemiamay have elevated sed rates. 07/04/2025 10:0 7 AM EDT 07/04/2025 11:47 AM EDT us Generic External Data Provider LAB BLOOD ORDERAB LES Final Result Performing Organization Address [facility] Co de Phone Number [facility] [address] [place] [phone] * C-reactive Protein (07/04/2025 10:07 AM EDT) Pathologist [facility] C Reactive Protein 0.10 < or = 0.50 mg/dL [facility] 07/04/2025 10:0 7 AM EDT 07/04/2025 11:47 AM EDT us Generic External Data Provider LAB BLOOD ORDERAB LES Final Result Performing Organization Address [facility] Co de Phone Number [facility] [address] [place] [phone] * (ABNORMAL) Lipid Panel, Standard (07/04/2025 10:07 AM EDT) Triglycerides 129 <150 mg/dL [facility] Comment:Desirable Triglyceri de: less than 150 mg/dLBorderline High Triglyceride 150-199 mg/dLHigh Triglyceride: 200-499 mg/dLVery High Triglyceride: greater than or equal to 5OO mg/dL Cholesterol 158 <200 mg/dL [facility] Comment:Desirable Cholestero l: less than 200 mg/dLBorderline High Cholesterol: 200-239 mg/dLHigh Cholesterol: greater than 239 mg/dL LDL Cholesterol Calculated 104(H) <100 mg/dL [facility] Comment:Desirable LDL: less than 100 mg/dLNear Optimal/Above Optimal LDL: 110- 129 mg/dLBorderline High LDL: 130-159 mg/dLHigh LDL: 160-189 mg/dLVery High LDL: greater than or equal to 190 mg/dL HDL Cholesterol 29(L) >40 mg/dL [facility] Comment:Desirable HDL: great er than 40 mg/dL Note: This HDL assay may give artificially low results in patients with liver disease. Blood Venous blood specimen / Unknown 07/04/2025 10:07 AM EDT 07/04/2025 11:47 AM EDT Marilee Cordero [employer] LAB BLOOD ORDERABLES Final Res ult [facility] [address] [place] [phone] * (ABNORMAL) Comprehensive Metabolic Panel (07/04/2025 10:07 AM EDT) Sodium 143 135 - 145 mmol/L [facility] Potassium 4.6 3.3 - 5.1 mmol/L [facility] Chloride 109(H) 96 - 108 mmol/L [facility] Carbon Dioxide 28 22 - 29 mmol/L [facility] Anion Gap 11(L) 12 - 20 [facility] Urea Nitrogen (BUN) 23(H) 9 - 16 mg/dL [facility] Creatinine, Serum 0.96 0.5 - 1.4 mg/dL [facility] Estimated Glomerular Filt Rate >60 [facility] Comment:Chronic Kidney Disea se: Estimated GFR < 60 mL/min/[id number] Kidney Disease: Estimated GFR < 15 mL/min/1.73m2 Glucose 135(H) 60 - 115 mg/dL [facility] Calcium 9.2 8.4 - 10.2 mg/dL [facility] Bilirubin, Total 0.8 0.0 - 1.0 mg/dL [facility] Aspartate Amino Transferase 25 5 - 37 U/L [facility] Alanine Aminotransferase 27 0 - 40 U/L [facility] Total Protein 6.4(L) 6.5 - 8.0 g/dL [facility] Albumin Level 3.8 3.5 - 5.0 g/dL [facility] Alkaline Phosphatase 60 39 - 117 U/L [facility] 07/04/2025 10:0 7 AM EDT 07/04/2025 11:47 AM EDT Generic External Data Provider LAB BLOOD ORDERAB LES Final Result [facility] [address] [place] [phone] * (ABNORMAL) POCT A1c (06/26/2025 1:35 PM EDT) Hemoglobin A1C 10.8(A) 4.0 - 5.7 % QC Media Lot # [id number] Lot# Expiration Date Blood 06/26/2025 1:35 PM EDT Marilee OTERO POINT OF CARE TEST ENTER/EDIT ORDERABLES Final Result * Cytopath-cell enhanced (04/28/2025 3:00 PM EDT) 04/28/2025 3:00 PM EDT 04/29/2025 8:40 AM EDT Narrative [facility] - 04/29/2025 1:59 PM EDT ----- ------- Name: Joesph Saldana Age/Sex: 54/M : 1970 Unit#: [id number] Attend Dr: Malvin Cramer MD Re04/28/25 Status: [facility] Disch: ----- ------- SPEC : [id number] RECD: 04/29/25 STATUS: JANET FLORENCE NUM: [id number] JUDITH: 04/28/25-[address] [facility] DR: Malvin Cramer MD ENTERED: 04/29/25 SP TYPE: Cytology OT DR: Marilee Cordero [employer] ORDERED: Cyto-enhanced Diagnosis Urine: Negative for high-grade [...] developed and their performance characteristics determined by [facility]. They have not been cleared or approved by the U.S. Food and Drug Administration (FDA). However, the FDA has determined that such clearance or approval is not necessary. This laboratory is certified under the Clinical Laboratory Improvement Amendments of 1988 (CLIA) as qualified to perform high complexity clinical laboratory testing. Copies To: Malvin Cramer MD [facility] [address] [place] [address] [address] [place], [place] [phone] [email or web address] Marilee Cordero [address] [place] [address], [place] [phone] CONTINUED ON NEXT PAGE ----- ------- Name: Joesph Saldana Age/Sex: 54/M : 1970 Unit#: [id number] Attend Dr: Malvin Cramer MD Re04/28/25 Status: DEP REF Location: .LAB Disch: ----- ------- SPEC : [id number] RECD: 04/29/25 STATUS: JANET POWELL NUM: [id number] JUDITH: 04/28/25-[address] [facility] DR: Malvin Cramer MD ENTERED: 04/29/25 SP TYPE: Cytology OTHR : Marilee Codrero ORDERED: Cyto-enhanced ----- ------- Signed (signature on file) Bradly See MD 04/29/25 1359 ----- ------- END OF REPORT us Generic External Data Provider LAB CYTOLOGY YAZ JUAREZ Final Result [facility] [address] [place] [phone] * (ABNORMAL) Urinalysis Complete (04/28/2025 10:10 AM EDT) Color Urine Yellow [facility] Appearance Urine Clear [facility] PH 5.5 5.0 - 9.0 [facility] Glucose Urine UA >=1000(A) Negative mg/dL [facility] Urine Blood Small (1+)(A) Negative [facility] [facility] Specific [place] - Urine 1.020 1.005 - 1.025 [facility] Urine Protein 300 (3+)(A) Neg-Trace mg/dL [facility] Urine Ketones Negative Negative mg/dL [facility] Nitrite Urine Negative Negative [facility] Leukocyte Esterase Urine Negative Negative [facility] RBC Urine 3-5(A) 0 - 2 /HPF [facility] Urine WBC 0-5 0 - 5 /HPF [facility] Urine Squamous Epithelial Cell 0-2 0 - 2 /HPF [facility] Urine Bacteria None Seen None Seen [facility] Hyaline Casts, Urine 3-5 0 - 2 /LPF [facility] GRANULAR CASTS (#/HPF) IN URINE Present [facility] Urine (Urine, Random) 04/28/2025 10:10 AM EDT 04/28/2025 5:57 PM EDT Marilee Bazannew [facility] URINE ORDERABLES Final Res ult [facility] [address] [place] [phone] * (ABNORMAL) POCT Urinalysis (04/28/2025 9:45 AM EDT) Pathologist [facility] Color, UA Yellow Clarity, UA Clear Glucose, [...] 93,025 Urine 04/28/2025 9:45 AM EDT Marilee [facility] POINT OF CARE TEST ENTER/EDIT ORDERABLES Final Result * (ABNORMAL) POCT Glucose (04/28/2025 9:32 AM EDT) [facility] Glucose Blood, POC 384(A) 60 - 200 mg/dL Blood Capillary blood specimen / Unknown 04/28/2025 9:32 AM EDT Marilee [facility] POINT OF CARE TEST ENTER/EDIT ORDERABLES Final Result * Hepatitis Panel, General (02/26/2025 7:32 AM EDT) Pathologist [facility] Hepatitis A IgM Nonreactive Nonreactive [facility] Comment:IgM antibodies to GIBSON V not detected; does not exclude earlyacute or recovered HAV infection. ~Hepatitis B Surface Antibody NONREACTIVE Nonreactive [facility] Comment:Nonreactive: < 8.00 mIU/mL Hepatitis B Core Antibody Nonreactive Nonreactive [facility] Hepatitis C Antibody Nonreactive Nonreactive [facility] Comment:Antibodies to HCV no t detected; does not exclude early acuteHCV infection. Hepatitis B Surface Ag Negative Negative [facility] 02/26/2025 7:32 AM EDT 02/26/2025 7:32 AM EDT us Generic External Data Provider LAB BLOOD ORDERAB LES Final Result Performing Organization Address [facility] de Phone Number [facility] [address] [place] [phone] * (ABNORMAL) Albumin, Random Urine W/Creatinine (12/25/2023 9:50 AM EST) Creatinine, Urine 162.10 mg/dL [facility] Microalbumin Urine >2,000.0 mg/L H [facility] Microalbum Creatinine Ratio Ur 1,233.8(H ) <30 ug/mg cr [facility] Comment:Albumin/Creatinine R atio Reference Ranges: Normal: < 30 ug/mg creatinine Microalbuminuria: 30 - 300 ug/mg creatinineClinical Albuminuria: > 300 ug/mg creatinine Urine 12/25/2023 9:50 AM EST 12/25/2023 2:38 PM EST Marilee [facility] URINE ORDERABLES Final Res ult Performing Organization Address [facility] de Phone Number [facility] [address] [place] [phone] * HIV-1/2 Antigen and Antibodies, Fourth Generation, with Reflexes (09/13/2023 7:53 AM EST) HIV AB/AG Nonreactive Nonreactive [facility] Comment:HIV-1 p24 Ag and/or HIV-1/HIV-2 Ab not detected.A test result that is nonreactive does not exclude thepossibility of exposure to or infection with HIV-1 and/orHIV-2. Nonreactive results in this assay for individualswith prior exposure to HIV-1 and/or HIV-2 may be due toantigen and antibody levels that are below the limit ofdetection of this assay.The [employer] HIV Ag/Ab Combo assay result andsupplemental assay results should be interpreted inconjunction with the patient's clinical presentation,history and other laboratory results. If the results areinconsistent with clinical evidence, additional testing issuggested to confirm the result. Blood Venous blood specimen / Unknown 09/13/2023 7:53 AM EST 09/13/2023 7:53 AM EST us Marilee Cordero [facility] BLOOD ORDERABLES Final Res ult [facility] [address] [place] [phone] from Last 3 Months or Most Recently Relevant to Health Maintenance Insurance [facility] H[facility] PARTIAL (MEDICAID) Care Teams Evaporator Supervisor Relationship Specialty Start Date End Date Marilee Cordero FNP [address] [place] [address] PCP - General Family Medicine 03/23/23 Cristo Garcia MD [address] [place] [phone] Rheumatology 09/01/24 Yoselyn Lyons [address] [place] [address] Ophthalmology 09/01/24 Balbir Don 22 [facility] [address] [place] [address] Sleep Medicine 09/01/24 Lindsay Nur PharmD [address] [place] [address] Pharmacist Pharmacy 05/29/25 Meño Butcher MD [address] [place] [address] [address] [place] [address] Cardiology 07/06/25 Dr. Ramirez [address] [place] [phone] Nephrology 09/01/24
--- OUTSIDE RECORDS SUMMARY | 2025-07-10 15:25 | XMS_ITS | Clinical Summary ---
Author Organization [facility] [place] [address] Phone Care Team Providers Care Digital Measurement Advisor Name Role Phone Physician, Pcp Unknown Primary Care Provider Ana Laura vailable Allergies No known active allergies Medications aspirin 81 mg EC tablet Take 1 tablet (81 mg total) by mouth 1 (one) time each day. 07/24/2023 Active carvediloL (COREG) 6.25 mg tablet Take 1 tablet (6.25 mg total) by mouth 2 (two) times a day with meals. 05/21/2024 Active Jardiance 10 mg tablet Take 2.5 tablets (25 mg total) by mouth daily. 04/03/2024 Active furosemide (LASIX) 40 mg tablet 2 tablets (80 mg total) 2 (two) times a day. Active metFORMIN (GLUCOPHAGE) 500 mg tablet Take 1 tablet (500 mg total) by mouth 2 (two) times a day with meals. 05/01/2024 Active Entresto 49-51 mg per tablet Take 1 tablet by mouth 2 times daily. 02/20/2025 Active spironolactone (ALDACTONE) 25 mg tablet Take 1 tablet (25 mg total) by mouth 1 (one) time each day. 05/22/2025 Active insulin glargine (Lantus U-100 Insulin) 100 unit/mL injection Inject 25 Units under the skin at bedtime. 05/01/2024 Active Active Problems Problem Noted Date Diagnosed Date Acute respiratory failure wi th hypoxia (CMS/HCC V24, CMS/HCC V28) 06/06/2025 Hypoxia 02/15/2025 Encounters Date Type Department Care Team Description 06/06/2025 9:52 AM EDT - 06/07/2025 2:36 PM EDT Hospital Encounter [facility] [address] [place] [address] Bayron Hester MD Shapiro, Benjamin, [...] (hyper tension) DM2 (diabetes mellitus, type 2) [place] [place] [facility] [place] 06/04/2012 DX:DM2 (diabetes mellitus, t ype 2) ([facility]) Obstructive sleep apnea 06/04/2012 DX:Obstr uctive sleep apnea Psoriatic arthritis [place] [place] [facility] [place] 06/04/2012 DX:Psoriatic arthritis ([facility]) Hyperlipidemia 06/04/2012 DX:Hyperlipidemi a; COMMENT: IMO update [...] Heart attack Other cousins with fa [place]'s 40's Asthma Sister Relation Name Status Comments [...] to Health Maintenance Results * ECG-Annotated (06/09/2025) Provider Onbase MD ECG ORDERABLES Final Result * (ABNORMAL) POCT Glucose, blood (06/07/2025 11:44 AM EDT) Only the most recent of4 resultswithin the time period is included. [facility] Glucose POCT 271(H) 70 - 100 mg/dL 06/07/2025 11:44 AM EDT [facility] Blood Capillary blood specimen / Unknown 06/07/2025 11:44 AM EDT 06/07/2025 11:45 AM EDT Corey Willingham MD LAB POINT O F CARE TEST DOCKED DEVICE UNSOLICITED RESULTS Final Result [facility] [address] [place] [address], * Troponin I high sensitivity (06/07/2025 5:51 AM EDT) Only the most recent of4 resultswithin the time period is included. [facility] High Sensitivity Troponin I 38 <=79 ng/L LAB CHEMISTRY METHOD 06/07/2025 6:58 AM EDT [facility] Blood Venous blood specimen / Unknown Venipuncture / Unknown 06/07/2025 5:51 AM EDT 06/07/2025 6:22 AM EDT Narrative [facility] - 06/07/2025 6:58 AM EDT High levels of biotin in samples may falsely decrease hsTroponin values. Use caution when interpreting hsTroponin results in patients taking biotin who exhibit renal impairment (eGFR <60) or in patients taking more than 20 mg/day of biotin. us Hyacinth DORSEY LAB BLOOD ORDERABLES Final R esult [facility] [address] [place] [address], [place] [phone] * (ABNORMAL) Complete blood count (06/07/2025 5:51 AM EDT) WBC 5.7 4.8 - 10.8 K/mcL LAB HEMETOLOGY METHOD 06/07/2025 8:00 AM [facility] RBC 5.00 4.50 - 5.50 M/mcL LAB HEMETOLOGY METHOD 06/07/2025 8:00 AM [facility] Hemoglobin 13.6 13.5 - 17.5 g/dL LAB HEMETOLOGY METHOD 06/07/2025 8:00 AM [facility] Hematocrit 41.7(L) 42.0 - 54.0 % LAB HEMETOLOGY METHOD 06/07/2025 8:00 AM [facility] MCV 84.2 79.0 - 98.0 FL LAB HEMETOLOGY METHOD 06/07/2025 8:00 AM [facility] MCH 27.5 27.0 - 32.0 pcg LAB HEMETOLOGY METHOD 06/07/2025 8:00 AM [facility] MCHC 32.6 32.0 - 37.0 g/dL LAB HEMETOLOGY METHOD 06/07/2025 8:00 AM [facility] RDW 13.6 11.0 - 15.0 % LAB HEMETOLOGY METHOD 06/07/2025 8:00 AM [facility] Platelets 243 130 - 400 K/mcL LAB HEMETOLOGY METHOD 06/07/2025 8:00 AM [facility] MPV 9.7 7.0 - 11.0 FL LAB HEMETOLOGY METHOD 06/07/2025 8:00 AM EDT [facility] NRBC 0.0 <1.0 % LAB HEMETOLOGY METHOD 06/07/2025 8:00 AM EDT [facility] NRBC Absolute 0.00 <0.10 K/mcL LAB HEMETOLOGY METHOD 06/07/2025 8:00 AM EDT [facility] Blood Venous blood specimen / Unknown Venipuncture / Unknown 06/07/2025 5:51 AM EDT 06/07/2025 6:23 AM EDT Hyacinth DORSEY LAB BLOOD ORDERABLES Final R esult Performing Organization Address [facility]/ZIP Co de Phone Number [facility] [address] [place] [address], [place] [phone] * (ABNORMAL) Magnesium (06/07/2025 5:51 AM EDT) Magnesium 2.7(H) 1.9 - 2.6 mg/dL LAB CHEMISTRY METHOD 06/07/2025 6:58 AM EDT [facility] Blood Venous blood specimen / Unknown Venipuncture / Unknown 06/07/2025 5:51 AM EDT 06/07/2025 6:23 AM EDT Hyacinth DORSEY LAB BLOOD ORDERABLES Final R esult Performing Organization Address City/[facility]/ZIP Co de Phone Number [facility] [address] [place] [address], [place] [phone] * (ABNORMAL) Basic metabolic panel (06/07/2025 5:51 AM EDT) Only the most recent of2 resultswithin the time period is included. Sodium 139 133 - 145 mmol/L LAB CHEMISTRY METHOD 06/07/2025 6:58 AM EDT [facility] Potassium 3.6 3.5 - 5.5 mmol/L LAB CHEMISTRY METHOD 06/07/2025 6:58 AM [facility] Chloride 99 96 - 110 mmol/L LAB CHEMISTRY METHOD 06/07/2025 6:58 AM [facility] CO2 35(H) 21 - 32 mmol/L LAB CHEMISTRY METHOD 06/07/2025 6:58 AM [facility] Anion Gap 5 3 - 11 LAB CHEMISTRY METHOD 06/07/2025 6:58 AM [facility] Glucose 200(H) 70 - 100 mg/dL LAB CHEMISTRY METHOD 06/07/2025 6:58 AM [facility] BUN 29(H) 5 - 25 mg/dL LAB CHEMISTRY METHOD 06/07/2025 6:58 AM [facility] Creatinine 1.20 0.70 - 1.30 mg/dL LAB CHEMISTRY METHOD 06/07/2025 6:58 AM [facility] eGFR 71 >=60 mL/min/1. 73m2 LAB CHEMISTRY METHOD 06/07/2025 6:58 AM [facility] Comment:Calculation based on the Chronic Kidney Disease Epidemiology Collaboration (CKD-EPI) equation refit without adjustment for race. BUN/Creatinine Ratio 24.2 LAB CHEMISTRY METHOD 06/07/2025 6:58 AM [facility] Calcium 9.2 8.5 - 10.5 mg/dL LAB CHEMISTRY METHOD 06/07/2025 6:58 AM [facility] Blood Venous blood specimen / Unknown Venipuncture / Unknown 06/07/2025 5:51 AM EDT 06/07/2025 6:23 AM EDT us Hyacinth DORSEY LAB BLOOD ORDERABLES Final R esult [facility] [address] [place] [address], [place] [phone] * SST tube (06/06/2025 7:06 PM EDT) Extra Tube Hold for add-ons. 06/06/2025 9:01 PM EDT [facility] Comment:Auto resulted. Blood Venous blood specimen / Unknown 06/06/2025 7:06 PM EDT 06/06/2025 7:26 PM EDT us Danny Larose DO LAB BLOOD ORDERABLES Final R esult Performing Organization Address City/[facility]/ZIP Co de Phone Number [facility] [address] [place] [address], [place] [phone] * Light blue tube (06/06/2025 7:06 PM EDT) Pathologist [facility] Extra Tube Hold for add-ons. 06/06/2025 9:01 PM EDT [facility] Comment:Auto resulted. Blood Venous blood specimen / Unknown 06/06/2025 7:06 PM EDT 06/06/2025 7:26 PM EDT us Danny Larose DO LAB BLOOD ORDERABLES Final R esult Performing Organization Address City/[facility]/ZIP Co de Phone Number [facility] [address] [place] [address], [place] [phone] * Respiratory virus panel molecular study (06/06/2025 3:52 PM EDT) Pathologist [facility] Adenovirus Detection by PCR Not Detected Not Detected LAB MICROBIOLOGY METHOD 06/06/2025 5:19 PM EDT [facility] Influenza A PCR Not Detected Not Detected LAB MICROBIOLOGY METHOD 06/06/2025 5:19 PM EDT [facility] Influenza B PCR Not Detected Not Detected LAB MICROBIOLOGY METHOD 06/06/2025 5:19 PM EDT [facility] Coronavirus 229E Not Detected Not Detected LAB MICROBIOLOGY METHOD 06/06/2025 5:19 PM EDT [facility] Coronavirus HKU1 Not Detected Not Detected LAB MICROBIOLOGY METHOD 06/06/2025 5:19 PM EDT [facility] Coronavirus OC43 Not Detected Not Detected LAB MICROBIOLOGY METHOD 06/06/2025 5:19 PM EDT [facility] Coronavirus NL63 Not Detected Not Detected LAB MICROBIOLOGY METHOD 06/06/2025 5:19 PM EDT [facility] Parainfluenza Virus 1 Not Detected Not Detected LAB MICROBIOLOGY METHOD 06/06/2025 5:19 PM EDT [facility] Parainfluenza Virus 2 Not Detected Not Detected LAB MICROBIOLOGY METHOD 06/06/2025 5:19 PM EDT [facility] Parainfluenza Virus 3 Not Detected Not Detected LAB MICROBIOLOGY METHOD 06/06/2025 5:19 PM EDT [facility] Parainfluenza Virus 4 Not Detected Not Detected LAB MICROBIOLOGY METHOD 06/06/2025 5:19 PM EDT [facility] RSV PCR Not Detected Not Detected LAB MICROBIOLOGY METHOD 06/06/2025 5:19 PM EDT [facility] Human Metapneumovirus A and B Not Detected Not Detected LAB MICROBIOLOGY METHOD 06/06/2025 5:19 PM EDT [facility] Rhinovirus/Entero virus Not Detected Not Detected LAB MICROBIOLOGY METHOD 06/06/2025 5:19 PM EDT [facility] Bordetella pertussis Not Detected Not Detected LAB MICROBIOLOGY METHOD 06/06/2025 5:19 PM EDT [facility] Bordetella parapertussis Not Detected Not Detected LAB MICROBIOLOGY METHOD 06/06/2025 5:19 PM EDT [facility] Mycoplasma pneumo by PCR Not Detected Not Detected LAB MICROBIOLOGY METHOD 06/06/2025 5:19 PM EDT [facility] Chlamydia pneumoniae Not Detected Not Detected LAB MICROBIOLOGY METHOD 06/06/2025 5:19 PM EDT [facility] SARS COV-2 Not Detected Not Detected LAB MICROBIOLOGY METHOD 06/06/2025 5:19 PM EDT [facility] Swab Both anterior nares / Unknown Non-blood Collection / Unknown 06/06/2025 3:52 PM EDT 06/06/2025 4:14 PM EDT Narrative [facility] - 06/06/2025 5:19 PM EDT Testing was performed using the [employer] Respiratory Pathogen PCR Assay. All results must [...] MICROBIOLOGY - GENERAL O RDERABLES Final Result [facility] [address] [place] [address], [place] [phone] * CT Angio Chest wo and/or w [...] Signed Date: 06/06/2025 15:19 ET Workstation ID: [id number] Transcribed By: Self Edit Transcribed Date: 06/06/2025 15:12 ET Narrative 06/06/2025 3:19 PM EDT PROCEDURE: CT ANGIO CHEST INDICATION: Chest pain, nonspecific COMPARISON: None. TECHNIQUE: CT pulmonary angiogram performed following uneventful IV administration of ISOVUE contrast material with bolus timing technique from the thoracic inlet through the lung bases. 3-D multiplanar reformations were obtained by the technologist on an independent workstation. GE Lightspeed VCT dose reduction utilizing iterative reconstruction. Total [...] by the technologist on anindependent workstation. GE Lightspeed VCT dose reduction utilizing iterative reconstruction. Total [...] Signed Date: 06/06/2025 15:19 ET Workstation ID: [id number] Transcribed By: Self Edit Transcribed Date: 06/06/2025 15:12 ET Bayron Hester MD IMG CT PROCEDURES Final Res ult * D-dimer, quantitative (06/06/2025 11:48 AM EDT) D-Dimer, Quant (D-DU) 191 <=230 ng/mL DDU LAB COAGULATION METHOD 06/06/2025 12:27 PM EDT [facility] Blood Venous blood specimen / Unknown Venipuncture / Unknown 06/06/2025 11:48 AM EDT 06/06/2025 12:15 PM EDT Narrative [facility] - 06/06/2025 12:27 PM EDT D-Dimer <230 ng/mL (D-Dimer units) is the threshold for exclusion of DVT/PE. D-Dimer may be elevated in: Critically ill, severely infected, trauma patients, DIC, acute CVA, acute NM, unstable angina, AF, old age, , and smoking. D-Dimer may be decreased with: Initiation of heparin therapy and oral anticoagulants. Bayron Hester MD LAB BLOOD ORDERABLES Final Result [facility] [address] [place] [address], [place] [phone] * XR Chest 1 View (06/06/2025 11:04 AM EDT) Anatomical Region Laterality Modality Body Radiographic Aleida ging 06/06/2025 11:0 7 AM EDT Impressions 06/06/2025 11:08 AM EDT No acute pulmonary disease. Pulmonary vascular congestion consistent with congestive heart failure has resolved since 02/15/2025. Cardiomegaly is stable. Code 82337 -------- FINAL REPORT -------- Dictated By: Ceasar Lopez Dictated Date: 06/06/2025 11:07 ET Assigned Physician: Ceasar Lopez Reviewed and Electronically Signed By: Ceasar Lopez Signed Date: 06/06/2025 11:08 ET Workstation ID: [id number] Transcribed By: Self Edit Transcribed Date: 06/06/2025 [...] has resolved since 02/15/2025. Cardiomegaly isstable. Code 60809 -------- FINAL REPORT -------- Dictated By: Ceasar Lopez Dictated Date: 06/06/2025 11:07 ET Assigned Physician: Ceasar Lopez Reviewed and Electronically Signed By: Ceasar Lopez Signed Date: 06/06/2025 11:08 ET Workstation ID: [id number] Transcribed By: Self Edit Transcribed Date: 06/06/2025 11:07 ET us Bayron Hester MD IMG XR PROCEDURES Final Res ult * ECG 12 lead (06/06/2025 10:54 AM EDT) Ventricular Rate ECG 65 BPM GEMUSE Atrial Rate 65 BPM GEMUSE P-R Interval 144 ms GEMUSE QRS Duration 78 ms GEMUSE Q-T Interval 438 ms GEMUSE QTc 455 ms GEMUSE P Wave [place] 26 degrees GEMUSE R [place] 4 degrees GEMUSE T [place] 116 degrees GEMUSE ECG Interpretation Normal sinus rhythm ST and T wave abnormality, consider lateral ischemia When compared with ECG of 15-FEB-2025 12:38, T wave inversion now evident in Lateral leads Confirmed by ABDIRAHMAN HALEY ([id number]) on 06/08/2025 11:47:41 PM GEMUSE 06/06/2025 10:5 4 AM EDT 06/08/2025 11:47 PM EDT us Bayron Hester MD ECG ORDERABLES Final Resul t GEMUSE * (ABNORMAL) CBC auto differential (06/06/2025 10:42 AM EDT) WBC 6.9 4.8 - 10.8 K/mcL LAB HEMETOLOGY METHOD 06/06/2025 10:58 AM EDT [facility] RBC 5.40 4.50 - 5.50 M/mcL LAB HEMETOLOGY METHOD 06/06/2025 10:58 AM EDT [facility] Hemoglobin 15.3 13.5 - 17.5 g/dL LAB HEMETOLOGY METHOD 06/06/2025 10:58 AM EDT [facility] Hematocrit 44.2 42.0 - 54.0 % LAB HEMETOLOGY METHOD 06/06/2025 10:58 AM EDT [facility] MCV 81.4 79.0 - 98.0 FL LAB HEMETOLOGY METHOD 06/06/2025 10:[facility] MCH 28.2 27.0 - 32.0 pcg LAB HEMETOLOGY METHOD 06/06/2025 10:58 [facility] MCHC 34.6 32.0 - 37.0 g/dL LAB HEMETOLOGY METHOD 06/06/2025 10:58 [facility] RDW 13.2 11.0 - 15.0 % LAB HEMETOLOGY METHOD 06/06/2025 10:58 AM [facility] Platelets 230 130 - 400 K/mcL LAB HEMETOLOGY METHOD 06/06/2025 10:58 AM [facility] MPV 9.7 7.0 - 11.0 FL LAB HEMETOLOGY METHOD 06/06/2025 10:58 AM [facility] NRBC 0.0 <1.0 % LAB HEMETOLOGY METHOD 06/06/2025 10:58 AM [facility] NRBC Absolute 0.00 <0.10 K/mcL LAB HEMETOLOGY METHOD 06/06/2025 10:58 AM [facility] Neutrophils Relative 80.0 % LAB HEMETOLOGY METHOD 06/06/2025 10:58 AM [facility] Lymphocytes Relative 10.3 % LAB HEMETOLOGY METHOD 06/06/2025 10:58 AM [facility] Monocytes Relative 7.7 % LAB HEMETOLOGY METHOD 06/06/2025 10:58 AM [facility] Eosinophils Relative 1.2 % LAB HEMETOLOGY METHOD 06/06/2025 10:58 AM [facility] Basophils Relative 0.4 % LAB HEMETOLOGY METHOD 06/06/2025 10:58 AM [facility] Immature Granulocytes Relative 0.4 % LAB HEMETOLOGY METHOD 06/06/2025 10:58 AM [facility] Neutrophils Absolute 5.54 1.50 - 7.00 K/mcL LAB HEMETOLOGY METHOD 06/06/2025 10:58 AM [facility] Lymphocytes Absolute 0.71(L) 1.00 - 5.00 K/mcL LAB HEMETOLOGY METHOD 06/06/2025 10:58 AM [facility] Monocytes Absolute 0.53 0.20 - 1.00 K/mcL LAB HEMETOLOGY METHOD 06/06/2025 10:58 AM EDT [facility] Eosinophils Absolute 0.08 0.00 - 0.50 K/[facility] LAB HEMETOLOGY METHOD 06/06/2025 10:58 AM EDT [facility] Basophils Absolute 0.03 0.00 - 0.20 K/[facility] LAB HEMETOLOGY METHOD 06/06/2025 10:58 AM EDT [facility] Immature Granulocytes Absolute 0.03 0.00 - 0.03 K/[facility] LAB HEMETOLOGY METHOD 06/06/2025 10:58 AM EDT [facility] Blood Venous blood specimen / Unknown Venipuncture / Unknown 06/06/2025 10:42 AM EDT 06/06/2025 10:50 AM EDT Bayron Hester MD LAB BLOOD ORDERABLES Final Result Performing Organization Address City/[facility]/ZIP Co de Phone Number [facility] [address] [place] [address], [place] [phone] * B-type natriuretic peptide (06/06/2025 10:42 AM EDT) [facility] BNP 92 <=100 pcg/mL LAB CHEMISTRY METHOD 06/06/2025 11:29 AM EDT [facility] Blood Venous blood specimen / Unknown Venipuncture / Unknown 06/06/2025 10:42 AM EDT 06/06/2025 10:50 AM EDT Bayron Hester MD LAB BLOOD ORDERABLES Final Result [facility] [address] [place] [address], [place] [phone] * Serum albumin (06/06/2025 10:42 AM EDT) Pathologist [facility] Albumin 3.2 3.2 - 5.0 g/dL LAB CHEMISTRY METHOD 06/06/2025 2:58 PM EDT [facility] Blood Venous blood specimen / Unknown Venipuncture / Unknown 06/06/2025 10:42 AM EDT 06/06/2025 10:50 AM EDT Hyacinth DORSEY LAB BLOOD ORDERABLES Final R esult Performing Organization Address City/[facility]/ZIP Co de Phone Number [facility] [address] [place] [address], [place] [phone] * Hepatitis C antibody (02/16/2025 2:00 PM EDT) Hepatitis C Antibody Negative Negative LAB CHEMISTRY METHOD 02/16/2025 5:37 PM EDT [facility] Blood Venous blood specimen / Unknown Venipuncture / Unknown 02/16/2025 2:00 PM EDT 02/16/2025 2:05 PM EDT Ish David MD LAB BLOOD ORDERABLES Final Res ult Performing Organization Address [facility]/ZIP Co de Phone Number [facility] [address] [place] [address], [place] [phone] from Last 3 Months or Most Recently Relevant to Health Maintenance Insurance [facility] [employer] Advance Directives * Full Code [...] 5:57 PM 02/19/2025 7:05 PM This is ord er is used when code status has not been discussed with the patient, or code status is otherwise unknown/unconfirmed To update the patient's code status, place a code status order. Do not modify or discontinue any currently active code status orders. Care Teams Digital Measurement Advisor Relationship Specialty Start Date End Date Physician, Pcp Unknown PCP - General 05/01/25
--- OUTSIDE RECORDS SUMMARY | 2025-07-10 15:25 | XMS_ITS | Clinical Summary ---
Author Organization [facility] Address [address] [address] Phone Care Team Providers Care Latex Dipper Name Role Phone Marilee Cordero BRANDEN Primary Care Provider [phone] Allergies No known active allergies Medications amLODIPine [...] Followed by [facility] - Dr. Maturostrakul Jardiance 10mg daily Congestive heart failure 11/26/2023 Overview (04/03/2024): [facility]: Nuclear stress test: Negative ECG portion of the stress test. Myocardial perfusion imaging is normal with no evidence or fixed or reversible perfusion defects. Moderately reduced global LV function? with resting left ventricular EF of 33%, and post stress LVEF 36%. LV size moderately dilated. No evidence of transient ischemic dilation. Hospitalization for CHF exacerbation: Oct 2023 at [facility] Last Assessment & Plan: - Reviewed condition [...] Psoriatic arthritis 06/04/2012 Overview (03/26/2025): Followed by [facility] - Dr. Garcia Med therapy: DMARD, Derik Previous tx: methotrexate and Enbrel (hx of failed Humira tx in Rheum note 02/04/21). Plan to hold methotrexate with hx cardiac conditions Obstructive sleep apnea syndrome 06/04/2012 Overview (03/26/2025): Following with [facility] - Dr. Balbir Don Cont w/ CPAP, [...] to 49 Years) Discontinued 06/28/2018, 09/30/2008 Insurance [facility] ([id number]) [facility] ([id number]) Care Teams Latex Dipper Relationship Specialty Start Date End Date Marilee Cordero FNP [address] [place] [address] PCP - General 01/08/24
== END 2025-07-10 11:45 | disposition home or self-care (01) ==
LOC: HO.HPS 11:08
PROVIDERS: PCP Registered Nurse; Referring Provider Registered Nurse; Visit Provider Internal Medicine
DX: G47.33 Obstructive sleep apnea (adult) (pediatric) (principal); I27.20 Pulmonary hypertension, unspecified; I50.42 Chronic combined systolic (congestive) and diastolic (congestive) heart failure; R06.09 Other forms of dyspnea
CPT/HCPCS: 99204

== ENCOUNTER → 2025-07-10 11:07 | Outpatient (BNVA) | payer OTHER, SELFPAY | PROVIDERS: PCP Registered Nurse; Referring Provider Registered Nurse; Visit Provider Internal Medicine | DX: I27.20 Pulmonary hypertension, unspecified (principal); R06.09 Other forms of dyspnea; G47.33 Obstructive sleep apnea (adult) (pediatric); I11.0 Hypertensive heart disease with heart failure; I50.42 Chronic combined systolic (congestive) and diastolic (congestive) heart failure | CPT/HCPCS: 99202 ==

== ENCOUNTER 2025-07-11 14:20 | Outpatient (AMB) | payer OTHER, SELFPAY ==
--- OUTSIDE RECORDS SUMMARY | 2018-07-03 09:45 | XMS_ITS | Continuity of Care Document ---
Author Organization [facility] vices Address [address] [place] [address] Phone Care Team Providers Care Museum Curator Name Role Phone Unavailable Unavailable Unavailable Procedures Procedure Date Psychotherapy, 30 Minutes With Patient S Psych Dx Eval Psychotherapy, 30 Minutes With Patient A Advance Directives Directive Yes / No Effective Date File Name No Information Encounters Encounter Description Practice Location Reason(s) For Visit Diagnoses Date Provider Providers Copied on Encounter Psychotherap y, 30 Minutes With Patient [facility], [address] [place] [address], tel:[phone] [facility] Behavioral Health Individual Therapy (chief complaint) Cannabis use, unspecified, uncomplicatedC ocaine use, unspecified, uncomplicatedM ajor depressive disorder, recurrent, mildPost-traum atic stress disorder, unspecified Sep-0 8 No Information Psych Dx Eval [facility], [address] [place] [address], [facility], tel:[phone] [facility] Behavioral Health Initial Assessment (chief complaint) Major depressive disorder, recurrent, mildPost-traum atic stress disorder, unspecifiedCoc norman use, unspecified, uncomplicatedC annabis use, unspecified, uncomplicated May- 8 No Information Psychotherap y, 30 Minutes With Patient [facility], [address] [place] [address], tel:[phone] [facility] Behavioral Health depression (chief complaint) Major depressive disorder, recurrent, mildPost-traum atic stress disorder, unspecified May-2 8 No Information Family History Family Member Type Diagnosis Age At Onset No Information Payers Payer name Insurance type Covered democrat ID Authoriza tiluiz(s) BRII Alonso [id number] Social History Type Description Quantity Date Captured [...]
--- OUTSIDE RECORDS SUMMARY | 2025-04-28 09:00 | XMS_ITS | Encounter Summary ---
Author Organization [facility] Address [address] [facility] 7[address] [place] [address] Care Team Providers Care Armed Custom Protection Officer Name Role Phone Marilee Cordero Primary Care Provider [phone] Cristo Garcia MD Unavailable Doris Candelario Unavailable [phone] Yoselyn Lyons Unavailable Unavailable Balbir Don Unavailable Lindsay Nur PharmD Unavailable [phone] Meño Butcher MD Unavailable [phone] Reason for Referral * Consultation (Routine) - Authorized Specialty Diagnoses / Procedures Referred By Jovanny orr Referred To Contact Pharmacy Diagnoses Type 2 diabetes mellitus with hyperglycemia, with long-term current use of insulin (CMS/HCC) Marilee Cordero FNP [address] [place] [address] Phone: tel: fax: Referral ID Status Reason Start Date Expiration Date Visits Requested Visits Authorized [id number] Authorized Consult and Treat 04/29/2025 04/29/2026 6 6 * Consultation (Routine) - Authorized Specialty Diagnoses / Procedures Referred By Jovanny orr Referred To Contact Podiatry Diagnoses Type 2 diabetes mellitus with hyperglycemia, with long-term current use of insulin (CMS/HCC) Diabetic polyneuropathy associated with type 2 diabetes mellitus (CMS/HCC) Onychauxis Mrailee Cordero FNP [address] [place] [address] Phone: tel: fax: Handy Ochoa DPM [address] [place] [address] Phone: tel: fax: Referral ID Status Reason Start Date Expiration Date Visits Requested Visits Authorized [id number] Authorized Specialty Services Required 04/29/2025 04/29/2026 1 1 Encounter Details Date Type Department Care Team (Latest Contact Info) Description 04/28/2025 9:00 AM EDT Office Visit [facility] [address] [place] [address] Marilee Cordero FNP [address] [place] [address] Type 2 diabetes mellitus with hyperglycemia, with [...] PCP visit: 03/31/25 for HDF Referral to [facility] - reports has not yet heard from office. PCP called [facility] on 04/29/25. They confirmed receipt of referral and will plan to contact pt shortly to schedule - Abscess RLE: improved, no longer with bandage. Reports final appt with [facility] later this week. - Peripheral neuropathy BLE: longstanding numbness/tingling BLE. Able to feel until about midway down miller. Subsequent distal portion of extremities with limited sensation and (+) numbness/tingling. Rx gabapentin 100mg daily. - RUE numbness/tinglin months of decreased sensation and numbness/tingling right hand/fingers. Associated with slight decrease in package maker strength compared to left hand. Right hand [...] arthritis. Pt reports went for fitting, but [place] wanted more specific information related to type of AFO. PCP called [facility] on 04/29/25. LVM, Willrequest assistance from team [...] hyperglycemia, with long-term current use of insulin ([facility]) - Primary Overview Lab Results Component [...] normal limits, following with renal for proteinuria -[facility] referral on 04/29/25 Relevant Medications Dulaglutide (Trulicity) 0.75 MG/0.5ML solution auto-injector Other Relevant Orders POCT Glucose (Completed) POCT Urinalysis (Completed) Referral to Podiatry Referral to Pharmacy [facility] Genitourinary and Reproductive Hematuria Current Assessment & Plan Hematuria noted on point of care UA, confirmed with send out Following with [facility] Relevant Orders Urinalysis Complete (Completed) Neuro [...] UA, confirmed with send out Following with [facility] * Addendum Note - BRANDEN Patel - 04/28/2025 9:00 AM EDTAddended by: MARILEE CORDERO on: 07/06/2025 06:10 PM Modules accepted: Orders documented in this encounter Plan of Treatment Upcoming Encounters Date Type Department Care Team (Late st Contact Info) Description 08/14/2025 1:30 PM EDT Medication Management [facility] [address] [place] [address] Lindsay Nur, PharmD [address] [place] [address] Scheduled Referrals Name Type Priority Associated Diagnoses Orde r Schedule Referral to Podiatry Outpatient Referral Routine Type 2 diabetes mellitus with hyperglycemia, with long-term current use of insulin ([facility]) Diabetic polyneuropathy associated with type 2 diabetes mellitus ([facility]) Onychauxis Expected: 04/29/2025 (Approximate), Expires: 04/29/2026 Referral to Pharmacy [facility] Outpatient Referral Routine Type 2 diabetes mellitus with hyperglycemia, with long-term current use of insulin ([facility]) Ordered: 04/29/2025 documented as of this encounter Procedures Procedure Name Priority Date/Time Associated Diagnosis Comments URINALYSIS, COMPLETE Routine 04/28/2025 10:10 AM EDT Hematuria, unspecified type POCT URINALYSIS DIPSTICK Routine 04/28/2025 9:45 AM EDT Type 2 diabetes mellitus with hyperglycemia, with long-term current use of insulin ([facility]) POCT GLUCOSE Routine 04/28/2025 9:32 AM EDT Type 2 diabetes mellitus with hyperglycemia, with long-term current use of insulin ([facility]) documented in this encounter Results * (ABNORMAL) Urinalysis Complete (04/28/2025 10:10 AM EDT) Color Urine Yellow [facility] Appearance Urine Clear [facility] PH 5.5 5.0 - 9.0 [facility] Glucose Urine UA >=1000(A) Negative mg/dL [facility] Urine Blood Small (1+)(A) Negative [facility] Specific [place] - Urine 1.020 1.005 - 1.025 [facility] Urine Protein 300 (3+)(A) Neg-Trace mg/dL [facility] Urine Ketones Negative Negative mg/dL [facility] Nitrite Urine Negative Negative [facility] Leukocyte Esterase Urine Negative Negative [facility] RBC Urine 3-5(A) 0 - 2 /HPF [facility] Urine WBC 0-5 0 - 5 /HPF [facility] Urine Squamous Epithelial Cell 0-2 0 - 2 /HPF [facility] Urine Bacteria None Seen None Seen [facility] Hyaline Casts, Urine 3-5 0 - 2 /LPF [facility] GRANULAR CASTS (#/HPF) IN URINE Present [facility] Urine (Urine, Random) 04/28/2025 10:10 AM EDT 04/28/2025 5:57 PM EDT Marilee Cordero [address] [facility] URINE ORDERABLES Final Res ult [facility] [address] [place] [address] [phone] * (ABNORMAL) POCT Urinalysis (04/28/2025 9:45 [...] hyperglycemia, with long-term current use of insulin ([facility])- Primary Hematuria, unspecified type Peripheral nerve disease Mononeuritis of unspecified site Diabetic polyneuropathy associated with type 2 diabetes mellitus ([facility]) Numbness and tingling of right arm Onychauxis Other specified disease of nail Abscess of right lower extremity Bilateral foot-drop Other acquired deformity of ankle and foot documented in this encounter Additional Health Concerns Assessment Noted Time PHQ-9 Depression Total Score: 13 01/27/ 025 8:59 AM EDT documented as of this encounter Care Teams Armed Custom Protection Officer Relationship Specialty Start Date End Date Marilee Cordero FNP [address] [place] [address] PCP - General Family Medicine 03/23/23 Cristo Garcia MD [address] [place] [address] [address] [place] [address] Rheumatology 09/01/24 Doris Candelario [address] [place] [address] Cardiology 09/01/24 07/05/25 Yoselyn Lyons [address] [place] [address] Ophthalmology 09/01/24 Balbir Don [address] [facility] [address] [place] [address] Sleep Medicine 09/01/24 Lindsay Nur PharmD [address] [place] [address] Pharmacist Pharmacy 05/29/25 Meño Butcher MD [address] [place] [address] 3rd [place] [address] Cardiology 07/06/25 Dr. Ramirez [address] [facility] [address] [place] [id number] Nephrology 09/01/24 [facility] 03/18/25 05/04/25 documented as of this encounter
--- OUTSIDE RECORDS SUMMARY | 2025-07-03 12:20 | XMS_ITS | Continuity of Care Document ---
Author Organization [facility] Address [address] [place] [id number] Phone Care Team Providers Care Interactive Media Project Manager Name Role Phone Jonny Snow MD Unavailable Unavailable Allergies, Adverse Reactions, Alerts Substance Reaction Status Criticality No Known Allergies Active No Inform ation Medications Medication Instructions Dosage Effective Dates (start - stop) Status Comments atorvastatin 40 mg tablet take 1 tablet by oral route every day 40 MG - Active sertraline 50 mg tablet Take [...] daily as needed for cough - Active diclofenac 1 % topical gel - Active Procedures Procedure Date HEMOGLOBIN A1C OFFICE/OUTPATIENT VISIT, EST DIAST BP 80-89 MM HG SYST BP LT 130 MM HG POS MACROALBUMINURIA REV HG A1C LEVEL LT 7.0% Results Test Name Date and Time Measure Units Reference Range Abnormal Flag Status Commen ts Panel Description: Hemoglobin A1c/Hemoglobin.tot al in Blood Final Hemoglobin A1c 5.9 % 5.7 - 6.4 Final Advance Directives Directive Yes / No Effective Date File Name No Information Encounters Encounter Description Practice Location Reason(s) For Visit Diagnoses Date Provider OFFICE/OUTPAT IENT VISIT, EST CRAVE [facility], [address] [place] [address], [id number], tel:[phone] [facility] [address] [place] diabetes (follow up) (chief complaint)E D Follow Up (chief complaint) Essential (primary) hypertensionType 2 diabetes mellitus without complicationsHemoptysis Sep-0 4-202 5 Snow Jonny. [address] [place] [address], [id number], [place]. tel:[phone] CRAVE [facility], [address] [place] [address], [facility], tel:[phone] CM MAT [facility] [address] [place] Sep-0 3-202 5 [place]. [address] [place] [address], [address] [place] [address], [place]. tel:[phone] CRAVE [facility], [address] [place] [address], [facility], tel:[phone] CM MAT [facility] [address] Aug-2 0-202 5 [place]. [address] [place] [address], [address] [place] [address], [place]. tel:[phone] CRAVE [facility], [address] [place] [address], [facility], tel:[phone] OP A [facility] [address] [place] Medication Management (chief complaint)P sychiatric (chief complaint) Bob-3 1- 5 Choi Luna. [address] [place] [address], [address] [place] [address], [place]. tel:[phone] CRAVE [facility], [address] [place] [address], [facility], tel:[phone] CM MAT [facility] [address] [place] Bob-0 9-202 5 [place]. [address] [place] [address], [address] [place] [address], [place]. tel:[phone] [facility], [address] [place] [address], [facility], tel:[phone] CM MAT [facility] [address] Bob-0 2-202 5 [place]. [address] [place] [address], [id number], [place]. tel:[phone] [facility], [address] [place] [address], [id number], [place] tel:[phone] CM MAT [facility] [address] 5 Phuc [place]. [address] [place] [address], [id number], [place]. tel:[phone] [facility], [address] [place] [address], [id number], [place] tel:[phone] No Information 5 Gasior Michell. [address] [place] [address], [id number], [place]. tel:[phone] [facility], [address] [place] [address], [id number], [place] tel:[phone] OP A [address] Medication Management (chief complaint)P sychiatric (chief complaint) Body mass index (BMI) 33.0-33.9, adult 5 Almaskey Audrey. [address] [place] [address], [id number], [place]. tel:[phone], [address] [place] [address], [id number], [place] tel:[phone] [facility] [address] Medication Refill (chief complaint)C hest congestion (chief complaint) Type 2 diabetes mellitus without complicationsGERD w/o esophagitisCoughEssential (primary) hypertensionBody mass index (BMI) 32.0-32.9, adultDietary counseling and surveillanceExercise counseling 5 Edy Fuller. [address] [place] [address], [id number], [place]. tel:[phone], [address] [place] [address], [address], [place] tel:[phone] IOP A [facility] [address] [place] 5 Aubrey Cerda. [address] [place] [address], [id number], [place]. tel:[phone], [address] [place] [address], [address], [place] tel:[phone] IOP A [facility] [address] [place] May-0 9-202 5 Aubrey Cerda. [address] [place] [address], [id number], [place]. tel:[phone] [facility], [address] [place] [address], [id number], tel:[phone] IOP A [facility] [address] [place] May-0 7-202 5 Leo Carter. [address] [place] [address], [id number], [place]. tel:[phone] [facility], [address] [place] [address], [id number], [place] tel:[phone] IOP A [facility] [address] [place] May-0 6-202 5 Aubrey Cerda. [address] [place] [address], [id number], [place]. tel:[phone] [facility], [address] [place] [address], [id number], tel:[phone] IOP A [facility] [address] [place] May-0 2-202 5 Leo Raul. [address] [place] [address], [id number], [place]. tel:[phone] [facility], [address] [place] [address], [id number], [place] tel:[phone] CM MAT [facility] [address] [place] Apr-3 0-202 5 [place]. [address] [place] [address], [id number], [place]. tel:[phone] [facility], [address] [place] [address], [id number], [place] tel:[phone] [facility] [address] [place] No Information Mar-3 1-202 5 Margarito Sher. [address] [place] [address], [id number], [place]. tel:[phone] [facility], [address] [place] [address], [id number], [place] tel:[phone] CM MAT [facility] [address] [place] Feb-2 6-202 5 [place]. [address] [place] [address], [id number], [place]. tel:[phone] CRAVE [facility], [address] [place] [address], [facility], tel:[phone] OP A [address] 5 Montez Moss. [address] [place] [address], [address] [place] [address], . tel:[phone] [facility], [address] [place] [address], [facility], tel:[phone] OP A [address] 5 Cueva Rossy. [address] [place] [address], [address] [place] [address], [place]. tel:[phone] [facility], [address] [place] [address], [facility], tel:[phone] [facility] [address] [facility] ([facility] ent of care) (chief complaint)e stablish care (chief complaint) Body mass index (BMI) 32.0-32.9, adultEssential (primary) hypertensionType 2 diabetes mellitus without complicationsGERD w/o esophagitisPerson encountering health serviceDietary counseling and surveillanceExercise counseling 5 Grabiel Rasmussen. [address] [place] [address], [address] [place] [address], [place]. tel:[phone] [facility], [address] [place] [address], [facility], tel:[phone] CM MAT [facility] [address] 5 Phuc Archibald. [address] [place] [address], [id number], [place]. tel:[phone] As per patient privacy policy some of the clinical information may not be visible. Family History Family Member Type Diagnosis Age At Onset No Information Immunizations Vaccine Date Status Comments HepA/B (TWINRIX) administered Source: Oth er Registry HepA/B (TWINRIX) administered Source: Ot er Registry COVID-19 Vector-NR (JSN) administered Alaina rce: Other Registry Payers Payer name Insurance type Covered green party ID Authorantony rodriguez(s) Devi Alonso [id number] Social History Type Description Quantity Date Captured Comments Alcohol Use Details Unknown Caffeine Use Details Unknown Tobacco Use Status Smoking Status No Information Sex Male Sexual Orientation Don't Know Gender Identity Male Vital Signs Date / Time: Height Weight BMI Pulse Rate Blood Pressure Temperature Respiratory Rate Body Surface Area Head Circumference Head Circ. Percentile Wt./[place]. Percentile BMI percentile Pulse Ox Inhaled Ox 4:21 PM 65.87 in 88.360 kg (194.80 lbs) 31.5 7 kg/m eter (2) 59 /min 125/81 mm[Hg] 98.30 F 20 /min 2.03 meter(2) 97 % Chief Complaint And Reason For Visit From encounter dated '07/03/2025 16:20'. diabetes (follow up) (chief complaint) ED Follow Up (chief complaint). Description: Patient presented for routine follow-up and reported acute hemoptysis that began this morning upon awakening. Patient states he woke up coughing and bloodcame up. This represents a recurrent episode as patient had recent emergency department visit for bronchitis. Patient denies other associated symptoms besides the coughing. 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 Patient states he cannot breathe with protective equipment on. Patient is a current smoker and reports stress as contributing factor to smoking habits Plan Of Treatment Date Type Action Status Goal Foot exam. Due on due Goal Hep B (2nd) due Goal GFR. Due on due Goal Dental exam. Due on due Goal Dilated eye exam. Due on Jun due Goal Hep B (1st) due Goal ASCVD 10 year risk. Due on S due Goal Lipid panel. Due on 025 due Goal Hep B (3rd). Due on due Goal Pneumococcal vac cine. Due on due Goal Hemoglobin A1C. Due on due Goal Influenza vaccine. Due on due Goal Influenza vaccine. Due on due Goal Lipid panel. Due on due Goal Dilated eye exam. Due on Jun due Goal Hemoglobin A1C. Due on due Goal Pneumococcal vac cine. Due on due Goal Hep B (2nd) due Goal Dental exam. Due on due Goal GFR. Due on due Goal Foot exam. Due on due Goal ASCVD 10 year risk. Due on due Goal Hep B (1st) due Goal Hep B (3rd). Due on due Goal Lipid panel. Due on due Goal Hep B (3rd). Due on due Goal Pneumococcal vac cine. Due on due Goal GFR. Due on due Goal Hep B (2nd) due Goal Hemoglobin A1C. Due on due Goal Dilated eye exam. Due on May due Goal Dental exam. Due on due Goal Foot exam. Due on due Goal Hep B (1st) due Goal Influenza vaccine. Due on due Goal ASCVD 10 year risk. Due on A due Goal GFR. Due on due Goal Hep B (2nd) due Goal Hep B (3rd). Due on due Goal Dental exam. Due on due Goal Dilated eye exam. Due on Apr due Goal Hemoglobin A1C. Due on due Goal Influenza vaccine. Due on due Goal Pneumococcal vac cine. Due on due Goal Foot exam. Due on due Goal Lipid panel. Due on due Goal Hep B (1st) due Goal ASCVD 10 year risk. Due on due Goal GFR. Due on due Goal Dilated eye exam. Due on Apr due Goal Influenza vaccine. Due on due [...] Goal Hemoglobin A1C. Due on due Goal Hemoglobin A1C. Due on due Goal Hep B (2nd) due Goal Influenza vaccine. Due on due Goal Hep B (3rd). Due on due Goal Hep B (1st) due Goal Foot exam. Due on due Goal ASCVD 10 year risk. Due on due Goal GFR. Due on due Goal Dental exam. Due on due Goal Dilated eye exam. Due on Apr due Goal Pneumococcal vac cine. Due on due Goal Lipid panel. Due on due Goal GFR. Due on due Goal Lipid panel. Due on due Goal Pneumococcal vac cine. Due on due Goal ASCVD 10 year risk. Due on due Goal Hep B (1st) due Goal Hep B (3rd). Due on due Goal Dental exam. Due on due Goal Influenza vaccine. Due on due Goal Hep B (2nd) due Goal Hemoglobin A1C. Due on due Goal Foot exam. Due on due Goal Dilated eye exam. Due on February due Goal GFR. Due on due Goal Foot exam. Due on due Goal Hep B (3rd). Due on due Goal Dental exam. Due on due Goal Pneumococcal vac cine. Due on due Goal Hep B (1st) due Goal Lipid panel. Due on 025 due Goal ASCVD 10 year risk. Due on due Goal Hep B (2nd) due Goal Dilated eye exam. Due on February due Goal Hemoglobin A1C. Due on due Goal Influenza vaccine. Due on due Goal Lifestyle education regardin [...] vaccine. Due on due Goal Hep B (3rd). Due on 023 due Goal Pneumococcal vac cine. Due on due Goal Tobacco cessation counseling completed Goal Lifestyle education regardin g diet completed Goal Hep B (3rd). Due on 023 due Goal Hemoglobin A1C. Due on due Goal Dental exam. Due on 025 due Goal Lipid panel. Due on due Goal Hep B (1st) due Goal Foot exam. Due on due Goal Influenza vaccine. Due on Sd due Goal ASCVD 10 year risk. Due on due Goal Hep B (2nd) due Goal Dilated eye exam. Due on February due Goal Pneumococcal vac cine. Due on due Goal GFR. Due on due Goal Hep B (1st) [...] due Goal GFR. Due on due Goal ASCVD 10 year [...] February due Goal Lipid panel. Due on 025 due Goal Hep B (3rd). Due on 023 due Goal Foot exam. Due on due Goal Dilated eye exam. Due on February due Goal Lipid panel. Due on due Goal Hep B (2nd) due Goal ASCVD 10 year risk. Due on due Goal Foot exam. Due on due Goal Pneumococcal vac cine. Due on due Goal Hep B (1st) due Goal Influenza vaccine. Due on due Goal Dental exam. Due on 025 due Goal Hep B (3rd). Due on 023 due Goal GFR. Due on due Goal Influenza vaccine. Due on Ap due Goal Hep B (1st) due Goal Pneumococcal vac cine. Due on due Goal ASCVD 10 year risk. Due on A due Goal Lipid panel. Due on due Goal Hep B (2nd) due Goal Dilated eye exam. Due on Jan due Goal GFR. Due on due Goal Hep B (3rd). Due on 023 due Goal Dental exam. Due on due [...] on due Goal Lipid panel. Due on 025 due Goal Influenza vaccine. Due on due Goal Tobacco cessation counseling completed Goal Lifestyle education regardin g diet completed Referral Ordered: CT THORAX W/O DYE ordered Appointment Joesph Saldana BOOKED Appointment Joesph Saldana BOOKED Appointment Joesph Saldana BOOKED Future Order: Lab Order COMPREHE NSIVE METABOLIC PANEL ([id number]), Sent on: Sent Future Order: Lab Order HIV 1/2 ANTIGEN/ANTIBODY, FOURTH GEN W/ REFLEX ([id number]), Sent on: Sent Future Order: Lab Order MICROALB UMIN, RANDOM URINE (W/CREATININE) ([id number]), Sent on: Sent Future Order: Lab Order LIPID PA NEHEMIAH ([id number]), Sent on: Sent Future Order: Lab Order HEPATITI S C AB W/RFL RNA, PCR W/RFL GENOTYPE,LIPA ([id number]), Sent on: Sent Future Order: Lab Order CBC (INC LUDES DIFF/PLT) ([id number]), Sent on: Sent Future Order: Lab Order COMPREHE NSIVE METABOLIC PANEL ([id number]), Sent on: Sent Future Order: Lab Order HEMOGLOB IN A1C ([id number]), Sent on: Sent Future Order: Lab Order CHLAMYDI A/NEISSERIA GONORRHOEAE RNA, TMA UROGENITAL ([id number]), Sent on: Sent Future Order: Lab Order HIV 1/2 ANTIGEN/ANTIBODY, FOURTH GEN W/ REFLEX ([id number]), Sent on: Sent Future Order: Lab Order HEPATITI S PANEL, ACUTE W/REFLEX ([id number]), Sent on: Sent Future Order: Lab Order LIPID PA NEHEMIAH ([id number]), Sent on: Sent Future Order: Lab Order RPR (DX) W/REFL TITER AND CONFIRMATORY TESTING ([id number]), Sent on: Sent Future Order: Lab Order MICROALB UMIN, RANDOM URINE (W/CREATININE) ([id number]), Sent on: Sent History Of Present Illness Encounter Date Complaint History Of Prese nt Illness diabetes (follow up) ED Follow Up Patient presente d for routine follow-up and reported acute hemoptysis that began this morning upon awakening. Patient states he woke up coughing and blood came up. This represents a recurrent episode as patient had recent emergency department visit for bronchitis. Patient denies other associated symptoms besides the coughing. 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 Patient states he cannot breathe with protective equipment on. Patient is a current smoker and reports stress as contributing factor to smoking habits Medication Management Joesph pres ents today for MM appointment for ongoing treatment of MDD, PTSD, and brief psychotic disorder. 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 He reports feeling tired due to the new work schedule, but is glad to be back working and having this structure and a paycheck. He recently had to move longterm houses d/t an altercation with staff where a staff member felt threatened by Joesph prompting the move. He reports new house is fine, he has lived there previously, but is looking forward to providing PO his first paycheck which will allow him to move to transitional housing with private room.Joesph admits to inconsistent medication use, stating at previous [facility] they were more lenient about medications and so he stopped taking them at some time in February. He expresses some reluctance about taking medications regularly, but does not cite a specific reason other than disdain towards reliance on them- denies any concerning side effects. He does reflect that perhaps being off his medications contributed to his altercation with [facility] staff. He denies any other anger outbursts, denies major mood symptoms, denies SI/SIB/HI/AVH. He denies any considerable anxiety. He has resumed taking his medication over the past weeks and does not have any acute concerns. - Mental Status Examination (MSE) : Mood Patient denies major anxiety. Affect Appropriate to conversation. Thought process Organized and goal-directed. Thought content No apparent delusions or hallucinations. [employer], questionable medication adherence. Psychiatric The patient pres ents with poor judgment but denies anxious/fearful thoughts, compulsive thoughts, decreased need for sleep, depressed mood, difficulty concentrating, difficulty falling asleep, difficulty staying asleep, diminished interest or pleasure, excessive worry, fatigue, feelings of guilt, feelings of invulnerability, increased energy, hallucinations, loss of appetite, paranoia, racing thoughts or restlessness. The Psychiatric is aggravated by conflict or stress and social interactions. Psychiatric The patient pres ents with depressed [...] and has been on psychiatric medications since 2015. The patient reports some agitation but denies [...] 1 month, sooner if necessary, by calling [facility] at [phone]. Chest congestion - Summary : Mr. Saldana presents for a follow-up visit to discuss diabetes management and new respiratory symptoms.- Chief Complaint (CC) : Persistent cough with sputum production following recent illness in assisted.- History of Present Illness : Mr. Saldana is a male patient with a history of diabetes who recently returned from assisted. He reports developing an illness while incarcerated, which has led to persistent respiratory symptoms. The patient describes ongoing congestion and frequent sputum production throughout the day. He denies wheezing but confirms that he is a current smoker. The cough and sputum production have been continuous since his illness in assisted, causing concern about possible pneumonia. Mr. Saldana mentions that an x-ray was performed while he was in assisted, which reportedly showed no significant findings. The patient is currently residing in a longterm house. Medication Refill establish care Here for juan sh of care for PCP. Last had a PCP in 2019. PMHx: HTN, GERD, T2DM, anxiety, depression, PTSDPSHx: reports laparoscopy as infantNo family history of colon cancer, prostate cancer Social: - longterm house- smoking cigarettes 0.5ppd started in 20s [...] to Body mass index (BMI) 33.0-33.9, adult Giving encouragement to exercise Related to Body mass index [BMI] 33.0-33.9, adult Lifestyle education regarding di et Related to Body mass index [BMI] 33.0-33.9, adult Giving encouragement to exercise Related to Body mass index [BMI] 32.0-32.9, adult Lifestyle education regarding di et Related to Body mass index [BMI] 32.0-32.9, adult Welcomed to clinicBr benjamin discussed clinic policies [...] not be visible. Assessments Type Assessment Date assessment Essential (primary) hypertension impression BP at goalAmlodipine 5 mg refill ed assessment Type 2 diabetes mellitus without complications impression Meds: metformin diet controlled A1c: 6.1%Symptoms: no hyper or hypoglycemic symptomsLifestyle: review healthy diet and exercise recommendationsLipids: atorvastatin 40 mgMicroalbuminuria screen: orderedEye: gave phone numberComplications: none. assessment Hemoptysis impression Patient presents wit h recurrent hemoptysis following recent bronchitis treatment. Given significant occupational exposure to black sand without respiratory protection and smoking history, I am concerned about possible silicosis or other occupational lung disease. The combination of smoking and occupational silica exposure significantly increases risk for serious pulmonary pathology. X rya in ED normal Plan:- Therapeutic Interventions: Continue current bronchitis medications from emergency department- Diagnostic Tests: Ordered CT scan of chest to evaluate for occupational lung disease, silicosis, or other pulmonary pathology- Referrals: May require pulmonology referral depending on CT results- Patient Education: Discussed risks of silicosis from occupational sand exposure combined with smoking. Explored smoking cessation benefits including avoiding need for breathing machines, longevity, and financial savings. Patient expressed interest in cutting down smoking but not ready for complete cessation- Follow-Up: Return visit in one month to review CT results and reassess symptoms. Patient work note provided for today's absence. Radiology will contact patient to schedule CT scan after 2:30 PM due to work schedule As per patient privacy policy some of the clinical information may not be visible.
--- NOTE | 2025-07-11 14:40 | MHC.OFFVIS ---
Intake Visit Reasons: cysto/CT Intake Note: Patient presents today for a cystoscopy/CT Urology Medication:Tamsulosin Blood Thinner:Aspirin Antibiotic Allergies:None Shell Assembler Required: Yes Shell Assembler Name: Indiana Ellis Information Interpreted: non-clinical & clinical Allergies No Known Allergies Allergy (Verified 07/11/25 14:44) Medication List - Last Reconciled 07/11/25 by Malvin Cramer MD acetaminophen 650 mg PO TID PRN aspirin 81 mg PO DAILY atorvastatin 40 mg PO BEDTIME carvedilol 6.25 mg PO BID empagliflozin (Jardiance) 10 mg PO DAILY furosemide (Lasix) 80 mg PO BID ixekizumab (Taltz Autoinjector) 80 mg subcut Q4W metformin ER 500 mg PO BID sacubitril-valsartan 49-51 mg (Entresto) 1 tab PO BID spironolactone 25 mg PO DAILY tamsulosin 0.4 mg PO QPM HPI Comments Details: 07/11/25-- History of Present Illness The patient is a 55-year-old male presenting with hematuria. The patient reported noticing a small amount of blood in the urine recently. During the cystoscopy, mild to moderate bladder trabeculations were observed, but no suspicious lesions were found. The patient denies smoking or using nicotine products. Results - Cystoscopy findings: No suspicious bladder lesions, mild to moderate trabeculations - Urine cytology obtained on 04/28/25: Negative for malignant cells - urinalysis 2+ protein Plan 1. Hematuria - CT urogram pending. 2. Proteinuria--refer to nephrology 04/28/25 History of Present Illness - The patient is a 54-year-old male presenting with hematuria. - Hematuria was first noted two months ago and persisted for an entire day. - The episode resolved spontaneously without medical intervention. - The patient denies any associated dysuria during the episode. - There is a history of nephrolithiasis, with the last occurrence approximately ten years ago. - The patient is currently on metformin for diabetes mellitus and denies any history of tobacco use. Results - Urinalysis: 3+ protein, 1+ blood Discussion Notes I discussed with the patient the potential causes of hematuria, including nephrolithiasis and benign prostatic hyperplasia, urinary tract cancer. We also reviewed the need for further evaluation of the urinary tract, including imaging and a PSA test. I explained the procedure of cystoscopy and its role in evaluating the bladder. COUNT INCLUDES THE [facility] Medical History Dyspnea on minimal exertion Pulmonary hypertension Dyspnea on exhalation RAKAN (obstructive sleep apnea) CHF (congestive heart failure) Psoriasis Psoriatic arthritis Hypercholesteremia Lumbago with sciatica, right side Elev transaminase/LDH Neuropathy Diabetes Psoriasis Family History Father Diabetes HTN (hypertension) Mother Diabetes Social History Household Members: Spouse Housing: House Do you presently have visiting nurse or other home services: No Alcohol intake: never Patient Tobacco Use Status: Never used Tobacco e-Cigarette/Vaping Use: Never Used service: No Current occupational status: employed 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 Review of Systems Const All systems reviewed & are unremarkable except as noted in HPI and below Reports no additional complaints Eyes Reports no additional complaints ENT Reports no additional complaints Card Reports no additional complaints Resp Reports no additional complaints GI Reports no additional complaints Reports as per HPI Musc Reports no additional complaints Skin/Breast Reports system reviewed and no additional complaints, except as documented Neuro Reports no additional complaints Psych Reports no additional complaints Endo Reports no additional complaints Faustino/Lymph Reports no additional complaints Aller/Immun Reports no additional complaints Office Procedures Cystoscopy Consent Discussed risk and benefit or proposed procedure with the patient. Information consent for procedure given to the patient. Discussed technical aspects, risks, benefits and alternatives in full. Addressed all of the patient's questions and concerns regarding the procedure. The patient demonstrated knowledge and understanding. They wish to proceed with this procedure. Preparation The patient was prepped in the usual manner. A rivet catcher was present and in the room. Genitalia was prepped with betadine solution in a sterile manner. Lidocaine Jelly 2% was placed into the urethra and 16Fr flexible Olympus cystoscope was inserted into the meatus after adequate lubrication. Procedure Time out per protocol performed. The flexible cystoscope is passed transurethrally: The bladder was inspected in its entirety with utilization retroflexion displaying: Tumor(s): no suspicious bladder lesions visualized Trabeculation: Mild to Moderate i Mucosal Erthema: Orifices: normal shape and position Urethra: normal Cystoscopy findings: prostatic urethra bilobar enlargement bulbous urethra WNL, no suspicious bladder lesions visualized [id number] DISPOSABLE SCOPE URO-G FLEXIBLE SCOPE Procedure code (CPT) selection complete Office Meds lidocaine HCl 2 % mucosal jelly in applicator Performing Provider: Malvin Cramer MD Performing Location: [facility] Administered by: Zabrina Carson RN on 07/11/25 15:05 Dose Route Admin Location Dispensed Lot Number Expiration Date ND Pipe Joints Supervisor 10 mL intra-urethral 20 mL ciprofloxacin HCl 500 mg tablet Performing Provider: Malvin Cramer MD Performing Location: [facility] Administered by: Zabrina Carson RN on 07/11/25 15:05 Dose Route Admin Location Dispensed Lot Number Expiration Date NDC Pipe Joints Supervisor 500 mg PO 1 tab phenazopyridine 200 mg tablet Performing Provider: Malvin Cramer MD Performing Location: [facility] Administered by: Zabrina Carson RN on 07/11/25 15:05 Dose Route Admin Location Dispensed Lot Number Expiration Date NDC Pipe Joints Supervisor 200 mg PO 1 tab Results Reviewed Results Reviewed: Urine Cytology--Collected: 04/28/25 Location: .LAB Received: 04/29/25 Diagnosis Urine: Negative for high-grade urothelial carcinoma. See comment. COMMENT: Paucicellular specimen consisting of a few small groups of urothelial cells, which are small/ medium in size and have variable chromatin. The background has single urothelial cells with degenerative changes, red blood cells and chronic inflammatory cells. The differential diagnosis for these types of groups of urothelial cells includes infection, trauma (e.g. stones) and other types of urothelial neoplasms. Clinical History Gross hematuria Material Received Urine Gross Description Received is 60 cc of clear yellow fluid from which a ThinPrep slide is prepared. Assessment & Plan Assessment & Plan (1) BPH loc w urin obs/LUTS: Code(s): N40.1 - Benign prostatic hyperplasia with lower urinary tract symptoms Category: Medical (2) Hematuria: Code(s): R31.9 - Hematuria, unspecified Category: Medical (3) Proteinuria: Code(s): R80.9 - Proteinuria, unspecified Category: Medical Plan Plan 1. Hematuria - CT urogram pending. 2. Proteinuria--refer to nephrology Orders: Orders AMB Cystoscopy Today R31.0 - Gross hematuria Referrals Nephrology Referral R80.9 - Proteinuria, unspecified Medications: New tamsulosin 0.4 mg PO QPM 90 caps 3RF Patient Instructions: The patient had an opportunity to ask questions regarding treatment plan. The patient expressed understanding and agreement with the above treatment plan. The patient is aware they should contact our office by phone for worsening of their current condition or the appearance of new symptoms. Compliance is encouraged with any medications and followup testing that is ordered. It is a privilege to be allowed the opportunity to participate in the urologic care of your patient. If you have any questions or concerns regarding treatment for the above conditions please do not hesitate to contact me. The office telephone contact is [phone]. This note is constructed in part using voice recognition software. While every effort has been made to ensure accuracy manufacturing plant technician errors may have been included. Yours sincerely, Malvin Cramer MD Scribe Plan - Not visible on output: Patient was informed and verbally consented to the use of an ambient scribe for clinic note documentation during this visit. Coding Level of Care Code Est Pt Level 3 (07019) Diagnoses BPH loc w urin obs/LUTS N40.1 Hematuria R31.9 Proteinuria R80.9 CPT Codes Cystoscopy - CPT: [id number] ([id number])
--- OUTSIDE RECORDS SUMMARY | 2025-07-11 17:15 | XMS_ITS | Encounter Summary ---
Author Organization [employer] Address [address] [facility] 7[address] [place] [address] Care Team Providers Care Rehabilitation Therapist Name Role Phone Marilee Cordero Primary Care Provider [phone] Cristo Garcia MD Unavailable Yoselyn Lyons Unavailable Unavailable Balbir Don Unavailable Lindsay Nur PharmD Unavailable [phone] Meño Butcher MD Unavailable [phone] Encounter Details Date Type Department Care Team (Late st Contact Info) Description 07/08/2025 Results Follow-Up [facility] [address] [place], [place] [phone] Marilee Cordero FNP [address] [place], [place] [phone] Lipid Panel, Standard, Vitamin B12/Folate, Serum Panel [...] Description 08/14/2025 1:30 PM EDT Medication Management [facility] [address] [place] [address] Lindsay Nur, PharmD [address] [place] [address] documented as of this encounter Visit Diagnoses Not on filedocumented in this encounter Additional Health Concerns Assessment Noted Time PHQ-9 Depression Total Score: 13 025 8:59 AM EDT documented as of this encounter Care Teams Rehabilitation Therapist Relationship Specialty Start Date End Date Marilee Cordero FNP [address] [place] [address] PCP - General Family Medicine 03/23/23 Cristo Garcia MD [address] [place] [address] Rheumatology 09/01/24 Yoselyn Lyons [address] [place] [address] Ophthalmology 09/01/24 Balbir Don [address] [facility] [address] [place] [address] Sleep Medicine 09/01/24 Lindsay Nur PharmD [address] [place] [address] Pharmacist Pharmacy 05/29/25 Meño Butcher MD [address] [place] [address] 3rd [place] [address] Cardiology 07/06/25 Dr. Ramirez [address] [facility] [address] [place] [address] Nephrology 09/01/24 documented as of this encounter
--- OUTSIDE RECORDS SUMMARY | 2025-07-11 17:15 | XMS_ITS | Clinical Summary ---
Author Organization [facility] Address [address] [address] Phone Care Team Providers Care Carbon Paper Machine Operator Name Role Phone Marilee Cordero [...] Followed by [facility] - Dr. Maturostrakul Jardiance 10mg daily Congestive heart failure 11/26/2023 Overview (04/03/2024): [facility] Jul [facility]23: Nuclear stress test: Negative ECG portion of the stress test. Myocardial perfusion imaging is normal with no evidence or fixed or reversible perfusion defects. Moderately reduced global LV function? with resting left ventricular EF of 33%, and post stress LVEF 36%. LV size moderately dilated. No evidence of transient ischemic dilation. Hospitalization for CHF exacerbation: Oct 2023 at [facility] Last Assessment & Plan: - [...] Psoriatic arthritis 06/04/2012 Overview (03/26/2025): Followed by [facility] Rheum - Dr. Garcia Med therapy: DMARD, Derik Previous tx: methotrexate and Enbrel (hx of failed Humira tx in Rheum note 02/04/21). Plan to hold methotrexate with hx cardiac conditions Obstructive sleep apnea syndrome 06/04/2012 Overview (03/26/2025): Following with [facility] - Dr. Balbir Don Cont w/ CPAP, [...] to 49 Years) Discontinued 06/28/2018, 09/30/2008 Insurance [employer] [facility] ([id number]) [employer] [facility] ([id number]) Care Teams Carbon Paper Machine Operator Relationship Specialty Start Date End Date Marilee Cordero FNP [address] [place] [address] PCP - General 01/08/24
--- OUTSIDE RECORDS SUMMARY | 2025-07-11 17:15 | XMS_ITS | Encounter Summary ---
Author Organization [employer] Address [address] [facility] 7t [place] [address] Care Team Providers Care Reports Analyst Name Role Phone Marilee Cordero DIRECTOR OF DIVERSITY AND INCLUSION Primary Care Provider [phone] Cristo Garcia MD Unavailable Doris Candelario Unavailable [phone] Yoselyn Lyons Unavailable Unavailable Balbir Don Unavailable Lindsay NurD Unavailable [phone] Meño Butcher MD Unavailable [phone] Encounter Details Date Type Department Care Team (Late st Contact Info) Description 08/11/2023 Abstract [facility] ADULT DENTAL [address] [place], [place] [phone] Gavino Lacey, DIANA [address] [place], [place] [phone] Social History Tobacco Use Types Packs/Day Years Used Date Smoking Tobacco: Never Smokeless Tobacco: Never Alcohol Use Standard Drinks/Week Comments Never 0 (1 standard drink = 0.6 oz pur e alcohol) Depression Answer Date Recorded Patient Health Questionnaire-9 Score 1 10/17/2022 Housing Stability Answer Date Recorded What is your housing situation today? I have claytonivan sacnhez 08/10/[address] you li [...] [facility] [address] [place] [address] Lindsay Nur PharmD [address] [place] [address] documented as of this encounter Visit Diagnoses Not on filedocumented in this encounter Additional Health Concerns Assessment Noted Time PHQ-9 Depression Total Score: 1 10/17/20 22 10:05 AM EST documented as of this encounter Care Teams Reports Analyst Relationship Specialty Start Date End Date Marilee Cordero FNP [address] [place] [address] PCP - General Family Medicine 03/23/23 Cristo Garcia MD [address] [place] [address] [place] [address] Rheumatology 09/01/24 Doris Candelario [address] [place] [address] Cardiology 09/01/24 07/05/25 Yoselyn Lyons [address] [place] [address] Ophthalmology 09/01/24 Balbir Don 22 [facility] [address] [place] [address] Sleep Medicine 09/01/24 Lindsay Nur PharmD [address] [place] [address] Pharmacist Pharmacy 05/29/25 Meño Butcher MD [address] [place] [address] 3rd [place] [address] Cardiology 07/06/25 Dr. Ramirez 100 [facility] 200 [place] [address] Nephrology 09/01/24 [facility] 03/18/25 05/04/25 documented as of this encounter
--- OUTSIDE RECORDS SUMMARY | 2025-07-11 17:15 | XMS_ITS | Encounter Summary ---
Author Organization [employer] Address [address] [facility] 7t [place] [address] Care Team Providers Care Lifestyle Coordinator Name Role Phone Marilee Cordero Primary Care Provider [phone] Cristo Garcia MD Unavailable Doris Candelario Unavailable Yoselyn Lyons Unavailable Unavailable Balbir Don Unavailable Lindsay NurD Unavailable [phone] Meño Butcher MD Unavailable [phone] Reason for Visit * Reason Onset Date Comments Hospital Follow-up 03/17/2025 Encounter Details Date Type Department Care Team (Late st Contact Info) Description 03/17/2025 Telephone [facility] MEDICINE [address] [place] [address] Marilee Cordero FNP [address] [place], [place] [phone] Hospital Follow-up Social History Tobacco Use Types [...] from pt requesting a HDF appt. Hospital: [facility] Date of admission: 03/11/25 Discharge date: 03/15/25 Diagnosed: Leg pain and goes up to back *Send message to [facility] Clinical Care Coordinators documented in this encounter Plan of Treatment Upcoming Encounters Date Type Department Care Team (Late st Contact Info) Description 08/14/2025 1:30 PM EDT Medication Management [facility] [address] [place] [address] Lindsay Nur, PharmD [address] [place] [address] documented as of this encounter Visit Diagnoses Not on filedocumented in this encounter Additional Health Concerns Assessment Noted Time PHQ-9 Depression Total Score: 13 03/31/2 025 8:59 AM EDT documented as of this encounter Care Teams Lifestyle Coordinator Relationship Specialty Start Date End Date Marilee Cordero FNP [address] [place] [address] PCP - General Family Medicine 03/23/23 Cristo Garcia MD [address] [place] [address] [address] [place] [address] Rheumatology 09/01/24 Doris Candelario [address] [place] [address] Cardiology 09/01/24 07/05/25 Yoselyn Lyons [address] [place] [address] Ophthalmology 09/01/24 Balbir Don 22 [facility] 301 [place] [address] Sleep Medicine 09/01/24 Lindsay Nur PharmD [address] [place] [address] Pharmacist Pharmacy 05/29/25 Meño Butcher MD [address] [place] [address] 3rd [place] [address] Cardiology 07/06/25 Dr. Ramirez 100 [facility] 200 [place] [address] Nephrology 09/01/24 [facility] 03/18/25 05/04/25 documented as of this encounter
--- OUTSIDE RECORDS SUMMARY | 2025-07-11 17:15 | XMS_ITS | Clinical Summary ---
Author Organization [employer] Address [address] [facility] [address] [place] [address] Care Team Providers Care Biomedical Equipment Support Specialist Name Role Phone Marilee Cordero BRANDEN Primary Care Provider [phone] Cristo Garcia MD Unavailable Yoselyn Lyons Unavailable Unavailable Balbir Don Unavailable Lindsay Nur PharmD Unavailable [phone] Meño Butcher MD Unavailable [phone] Allergies No known active allergies Medications Blood Pressure kit Use daily Active Blood Glucose Monitoring Suppl (FreeStyle [place] Lite) w/Device kit 1 each by Other [...] hyperglycemia, with long-term current use of insulin ([facility]) Subcutaneous once daily use with lantus pen 100 each 3 3 Active gabapentin (Neurontin) 100 MG capsuleIndicati ons:Peripheral nerve disease TAKE 1 CAPSULE BY MOUTH EVERY EVENING (for nerve pain) 90 capsule 1 3 Active metFORMIN XR (Glucophage-XR) 500 MG 24 hr tabletIndicatio ns:Type 2 diabetes mellitus with hyperglycemia, with long-term current use of insulin ([facility]/HCC) TAKE 1 TABLET BY MOUTH TWICE DAILY [...] Date Hematuria 04/29/2025 Overview (07/06/2025): Following with [facility] - Dr. Cramer Assessment & Plan [...] UA, confirmed with send out Following with [facility] Diabetic polyneuropathy asso ciated with type [...] Followed by [facility] - Dr. James Hogan 10mg daily Psoriatic arthritis 08/30/2024 Overview (04/01/2025): Followed by [facility] - Dr. Garcia Med therapy: DMARD [...] failure 11/26/2023 Overview (07/06/2025): [facility] with [facility] [place] Dr. Butcher April: Nuclear stress test: [...] Hospitalization for CHF exacerbation: Oct 2023 at [facility] - Reviewed condition and concerning signs/symptoms Pharmacotherapy: Aspirin 81mg daily Atorvastatin 40mg nightly Furosemide 40mg BID (RX nephrology) Spironolactone 25mg daily (RX cards) Jardiance 25mg daily Carvedilol 6.25mg BID Entresto 24-26mg BID Assessment & Plan (04/01/2025 7:07 PM EDT): Follow-up with [facility] [place] as scheduled in April 2025. Reports they are already on wait list in case anything sooner becomes available. Assessment & Plan (01/27/2025 9:50 AM EDT): Cont current therapy, symptomatic SOB/BELL Referral to [facility] for further eval Assessment & Plan [...] following with renal for proteinuria -Established with [facility] Assessment & Plan (04/01/2025 7:01 PM EDT): - Initial BG reading [facility]. Repeat value [facility] s/p 10 units lispro. Re-check #3 resulted 436 s/p second dose of 10 units insulin lispro. Pt unable to void for UA. Discussed ED precautions. - Previous rx of Jardiance 10mg daily (rx through [employer] - unclear if currently taking) - No [...] tx in Rheum note 02/04/21) -Re-established with [facility] Nov 2021, last consult appt December 2023 Plan to hold methotrexate with hx cardiac conditions Taltz injections through Rheum with notable improvement Assessment & Plan (03/03/2024 2:42 PM EDT): -Previous tx with methotrexate and Enbrel (hx of failed Humira tx in Rheum note 02/04/21) -Re-established with [facility] Nov 2021, last consult appt December 2023 Plan to hold methotrexate with hx cardiac conditions Authorization for Taltz is pending Assessment & Plan (08/11/2023 1:16 PM EDT): -Previous tx with methotrexate and Enbrel (hx of failed Humira tx in Rheum note 02/04/21) -Re-established with [facility] Nov 2021 Says may have re-started on methotrexate but unsure. Will bring med list to next appt. -Pt was also referred to [facility] Derm Team, appt pending Assessment & Plan (04/12/2023 1:37 PM EDT): -Previous tx with methotrexate and Enbrel (hx of failed Humira tx in Rheum note 02/04/21) -Re-established with [facility] Nov 2021 Says may have re-started on methotrexate but unsure. Will bring med list to next appt. -Pt was also referred to [facility] Derm Team, appt pending Assessment & Plan (10/20/2022 9:18 AM EST): -Previous tx with methotrexate and Enbrel (hx of failed Humira tx in Rheum note 02/04/21) -Reports has not been taking any meddications for psoriasis in > 6 month, interested in re-establishing with specialists -Upcoming appt with [facility] Nov 2021 -Pt was also referred to [facility] Derm Team, appt pending Hypertension [...] apnea syndrome 06/13/2012 Overview (09/01/2024): [facility] Balbir Don Cont w/ CPAP, need updated titration report (home sleep study ordered Jul 2024 per specialist) Assessment & Plan (08/13/2023 8:36 AM EDT): Continues with CPAP nightly Due for settings adjustment, and also reporting intermittent discomfort with mask Referral to [facility] for further eval and management Resolved Problems Problem Noted Date Diagnosed Date Resolved Date Retention of urine 02/26/2015 3 Elevated levels of transamin ase & lactic acid dehydrogenase 08/14/2012 10/20/2022 Encounters Date Type Department Care Team Description 07/08/2025 Results Follow-Up [facility] [address] [place] [address] Marilee Cordero FNP Lipid Panel, Standard, Vitamin B12/Folate, Serum Panel 07/04/2025 8:30 AM EDT Office Visit [facility] [address] [place] [address] Marilee Cordero FNP Type 2 diabetes mellitus with hyperglycemia, with long-term current use of insulin (CMS/[facility]) (Primary Dx); Dietary counseling; Exercise counseling; Hematuria, unspecified type; Psoriatic arthritis (CMS/HCC); Diabetic polyneuropathy associated with type 2 diabetes mellitus (CMS/HCC); Congestive heart failure, unspecified HF chronicity, unspecified heart failure type (CMS/HCC); Numbness and tingling in both hands 07/04/2025 Orders Only GENERIC EXTERNAL DATA DEPARTMENT Provider, Generic External Data 07/04/2025 Travel 07/03/2025 Telephone [facility] [address] [place] [address] Marilee Cordero FNP chart prep 06/26/2025 Travel 05/29/2025 Travel 04/30/2025 Telephone [facility] [address] [place], [place] [phone] Marilee Cordero FNP Call Back Request 04/29/2025 Telephone [facility] [address] [place] [address] Marilee Cordero FNP 04/29/2025 Telephone [facility] [address], [place] [phone] Marilee Cordero FNP DME: COLIN DYE 04/28/2025 9:00 AM EDT Office Visit [facility] [address], [place] [phone] Marilee Cordero FNP Type 2 diabetes mellitus with hyperglycemia, with long-term current use of insulin ([facility]) (Primary Dx); Hematuria, unspecified type; Peripheral nerve disease; Diabetic polyneuropathy associated with type 2 diabetes mellitus ([facility]); Numbness and tingling of right arm; [...] Description 08/14/2025 1:30 PM EDT Medication Management [facility] [address] [place] [address] Lindsay Nur, PharmD [address] [place], [place] [phone] Health Maintenance Due Date Last Done Comments [...] hyperglycemia, with long-term current use of insulin ([facility]) HIV 1/2 [...] Vitamin B12 237 200 - 900 pg/mL [facility] Comment:NORMAL 200-900 PG/ML INDETERMINATE 160-199 PG/ML DEFICIENT < 160 PG/ML Folate 9.4 > or = 4.0 ng/mL [facility] Comment:Reference Values:> o r = 4.0 ng/mL< 4.0 ng/mL suggests folate deficiency Methotrexate, aminopterin and folinic acid(leucovorin) are chemotherapeutic agents whose molecularstructures are similar to folate; therefore, the Architectfolate assay cannot be used for patients using these drugs. Blood Venous blood specimen / Unknown 07/04/2025 10:07 AM EDT 07/04/2025 11:47 AM EDT us Marilee Cordero [employer] LAB BLOOD ORDERABLES Final Res ult [facility] [address] [place] [phone] * (ABNORMAL) CBC auto differential (07/04/2025 10:07 AM EDT) White Blood Count 6.5 4.8 - 10.8 X10*3/uL [facility] Red Blood Count 4.74 4.60 - 5.80 X10*6/uL [facility] Hemoglobin 13.7(L) 14.0 - 18.0 g/dl [facility] Hematocrit 39.5(L) 42.0 - 52.0 % [facility] Mean Corpuscular Volume 83.3 80.0 - 98.0 fL [facility] Mean Corpuscular Hemoglobin 28.9 27.0 - 33.0 pg [facility] Mean Corpuscular HGB Conc 34.7 31.0 - 36.0 g/dl [facility] Red Cell Distribution Width 12.9 11.0 - 16.0 % [facility] Platelet Count 186 160 - 400 X10*3/uL [facility] Mean Platelet Volume 9.4 9.4 - 12.4 fL [facility] Neutrophils Percent Auto 80.1(H) 45 - 73 % [facility] Imm Gran Pct Auto 0.3 0.0 - 0.4 % [facility] Lymphocytes Percent Auto 7.8(L) 20 - 40 % [facility] Monocytes Percent Auto 9.5 2 - 11 % [facility] Eosinophils Percent Auto 1.8 0 - 4 % [facility] Basophils Percent Auto 0.5 0 - 2 % [facility] NRBC Pct Auto 0.0 0.0 - 0.2 /100WBC [facility] Neutrophils Absolute Auto 5.2 2.0 - 8.3 x10*3/uL [facility] Imm Gran Abs Auto 0.02 0.00 - 0.03 X10*3/uL [facility] Lymphocytes Absolute Auto 0.5(L) 1.2 - 4.9 X10*3/uL [facility] Monocytes Absolute Auto 0.6 0.1 - 1.2 X10*3/uL [facility] Eosinophils Absolute Auto 0.1 0.0 - 0.4 X10*3/uL [facility] Basophils Absolute Auto 0.0 0.0 - 0.2 X10*3/uL [facility] NRBC Abs Auto 0.000 0.0 - 0.012 X10*3/uL [facility] 07/04/2025 10:0 7 AM EDT 07/04/2025 11:47 AM EDT us Generic External Data Provider LAB BLOOD ORDERAB LES Final Result [facility] [address] [place] [phone] * Methylmalonic Acid (07/04/2025 10:07 AM EDT) Methylmalonic Acid 225 55 - 335 nmol/L [facility] Comment: Serum methylmalonic acid (MMA) levels [...] outcomes,such as neural tube defects and intrauterine growthrestriction.[employer] utilized Multi-Modal Decomposition(MMD) analysis to establish first and second trimester-specific MMA reference intervals in , as givenbelow:MMA, First trimester (<13 wks gestation): 58-167 nmol/LMMA, Second trimester (13-23 wks gestation):63-241 nmol/LThis test was developed and its analytical performancecharacteristics have been determined by [employer]. It has not been cleared or approved by theFDA. This assay has been validated pursuant to the CLIAregulations and is used for clinical purposes.THIS TEST WAS PERFORMED AT:[employer]/[id number] [place] [address]YRJDXAYEDWIN RANDHAWA MD,PHD Blood Venous blood specimen / Unknown 07/04/2025 10:07 AM EDT 07/04/2025 11:47 AM EDT us Marilee Cordero [employer] LAB BLOOD ORDERABLES Final Res ult Performing Organization Address [facility] Co de Phone Number [facility] [address] [place] [phone] * (ABNORMAL) Sed Rate by Modified Wilbur (07/04/2025 10:07 AM EDT) Erythrocyte Sedimentation Rate 28(H) 0 - 15 MM/HR [facility] Comment:Patients with polycy themia and many hemoglobin abnormalitiesmay have depressed sed rates whereas patients with anemiamay have elevated sed rates. 07/04/2025 10:0 7 AM EDT 07/04/2025 11:47 AM EDT us Generic External Data Provider LAB BLOOD ORDERAB LES Final Result Performing Organization Address [facility] Co de Phone Number [facility] [address] [place] [phone] * C-reactive Protein (07/04/2025 10:07 AM EDT) Pathologist [facility] C Reactive Protein 0.10 < or = 0.50 mg/dL [facility] 07/04/2025 10:0 7 AM EDT 07/04/2025 11:47 AM EDT us Generic External Data Provider LAB BLOOD ORDERAB LES Final Result Performing Organization Address [facility] Co de Phone Number [facility] [address] [place] [phone] * (ABNORMAL) Lipid Panel, Standard (07/04/2025 10:07 AM EDT) Triglycerides 129 <150 mg/dL [facility] Comment:Desirable Triglyceri de: less than 150 mg/dLBorderline High Triglyceride 150-199 mg/dLHigh Triglyceride: 200-499 mg/dLVery High Triglyceride: greater than or equal to 5OO mg/dL Cholesterol 158 <200 mg/dL [facility] Comment:Desirable Cholestero l: less than 200 mg/dLBorderline High Cholesterol: 200-239 mg/dLHigh Cholesterol: greater than 239 mg/dL LDL Cholesterol Calculated 104(H) <100 mg/dL [facility] Comment:Desirable LDL: less than 100 mg/dLNear Optimal/Above Optimal LDL: 110- 129 mg/dLBorderline High LDL: 130-159 mg/dLHigh LDL: 160-189 mg/dLVery High LDL: greater than or equal to 190 mg/dL HDL Cholesterol 29(L) >40 mg/dL [facility] Comment:Desirable HDL: great er than 40 mg/dL Note: This HDL assay may give artificially low results in patients with liver disease. Blood Venous blood specimen / Unknown 07/04/2025 10:07 AM EDT 07/04/2025 11:47 AM EDT Marilee Cordero [employer] LAB BLOOD ORDERABLES Final Res ult [facility] [address] [place] [phone] * (ABNORMAL) Comprehensive Metabolic Panel (07/04/2025 10:07 AM EDT) Sodium 143 135 - 145 mmol/L [facility] Potassium 4.6 3.3 - 5.1 mmol/L [facility] Chloride 109(H) 96 - 108 mmol/L [facility] Carbon Dioxide 28 22 - 29 mmol/L [facility] Anion Gap 11(L) 12 - 20 [facility] Urea Nitrogen (BUN) 23(H) 9 - 16 mg/dL [facility] Creatinine, Serum 0.96 0.5 - 1.4 mg/dL [facility] Estimated Glomerular Filt Rate >60 [facility] Comment:Chronic Kidney Disea se: Estimated GFR < 60 mL/min/1.31n4Rjwlis Kidney Disease: Estimated GFR < 15 mL/min/1.73m2 Glucose 135(H) 60 - 115 mg/dL [facility] Calcium 9.2 8.4 - 10.2 mg/dL [facility] Bilirubin, Total 0.8 0.0 - 1.0 mg/dL [facility] Aspartate Amino Transferase 25 5 - 37 U/L [facility] Alanine Aminotransferase 27 0 - 40 U/L [facility] Total Protein 6.4(L) 6.5 - 8.0 g/dL [facility] Albumin Level 3.8 3.5 - 5.0 g/dL [facility] Alkaline Phosphatase 60 39 - 117 U/L [facility] 07/04/2025 10:0 7 AM EDT 07/04/2025 11:47 AM EDT Generic External Data Provider LAB BLOOD ORDERAB LES Final Result [facility] [address] [place] [phone] * (ABNORMAL) POCT A1c (06/26/2025 1:35 PM EDT) Hemoglobin A1C 10.8(A) 4.0 - 5.7 % QC Media Lot # [id number] Lot# Expiration Date Blood 06/26/2025 1:35 PM EDT Marilee OTERO POINT OF CARE TEST ENTER/EDIT ORDERABLES Final Result * Cytopath-cell enhanced (04/28/2025 3:00 PM EDT) 04/28/2025 3:00 PM EDT 04/29/2025 8:40 AM EDT Narrative [facility] - 04/29/2025 1:59 PM EDT ----- ------- Name: Joesph Saldana Age/Sex: 54/M : 1970 Unit#: [id number] Attend Dr: Malvin Cramer MD Re04/28/25 Status: [facility] ----- ------- SPEC : [id number] RECD: 04/29/25 STATUS: JANET FLORENCE NUM: [id number] JUDITH: 04/28/25-14[address] [facility] DR: Malvin Cramer MD ENTERED: 04/29/25 SP TYPE: Cytology OT DR: Marilee Cordero [employer] ORDERED: Cyto-enhanced Diagnosis Urine: Negative for high-grade [...] developed and their performance characteristics determined by [facility]. They have not been cleared or approved by the U.S. Food and Drug Administration (FDA). However, the FDA has determined that such clearance or approval is not necessary. This laboratory is certified under the Clinical Laboratory Improvement Amendments of 1988 (CLIA) as qualified to perform high complexity clinical laboratory testing. Copies To: Malvin Cramer MD [facility] [address] [place] [address] [address] [place], [place] [phone] [email or web address] [address] [place], [place] [phone] CONTINUED ON NEXT PAGE ----- ------- Name: Joesph Saldana Age/Sex: 54/M : 1970 Unit#: [id number] Attend Dr: Malvin Cramer MD Re04/28/25 Status: DEP REF Location: .LAB Disch: ----- ------- SPEC : [id number] RECD: 04/29/25 STATUS: JANET POWELL NUM: [id number] JUDITH: 04/28/25-14[address] [facility] [address]: Malvin Cramer MD ENTERED: 04/29/25 SP TYPE: Cytology OTHR : Marilee Cordero ORDERED: Cyto-enhanced ----- ------- Signed (signature on file) Bradly See MD 04/29/25 1359 ----- ------- END OF REPORT us Generic External Data Provider LAB CYTOLOGY YAZ JUAREZ Final Result [facility] [address] [place] [phone] * (ABNORMAL) Urinalysis Complete (04/28/2025 10:10 AM EDT) Color Urine Yellow [facility] Appearance Urine Clear [facility] PH 5.5 5.0 - 9.0 [facility] Glucose Urine UA >=1000(A) Negative mg/dL [facility] Urine Blood Small (1+)(A) Negative [facility] Specific [place] - Urine 1.020 1.005 - 1.025 [facility] Urine Protein 300 (3+)(A) Neg-Trace mg/dL [facility] Urine Ketones Negative Negative mg/dL [facility] Nitrite Urine Negative Negative [facility] Leukocyte Esterase Urine Negative Negative [facility] RBC Urine 3-5(A) 0 - 2 /HPF [facility] Urine WBC 0-5 0 - 5 /HPF [facility] Urine Squamous Epithelial Cell 0-2 0 - 2 /HPF [facility] Urine Bacteria None Seen None Seen [facility] Hyaline Casts, Urine 3-5 0 - 2 /LPF [facility] GRANULAR CASTS (#/HPF) IN URINE Present [facility] Urine (Urine, Random) 04/28/2025 10:10 AM EDT 04/28/2025 5:57 PM EDT Marilee Bazannew [facility] URINE ORDERABLES Final Res ult [facility] [address] [place] [phone] * (ABNORMAL) POCT Urinalysis (04/28/2025 9:45 AM EDT) Pathologist [facility] Color, UA Yellow Clarity, UA Clear Glucose, [...] 93,025 Urine 04/28/2025 9:45 AM EDT Marilee [facility] POINT OF CARE TEST ENTER/EDIT ORDERABLES Final Result * (ABNORMAL) POCT Glucose (04/28/2025 9:32 AM EDT) [facility] Glucose Blood, POC 384(A) 60 - 200 mg/dL Blood Capillary blood specimen / Unknown 04/28/2025 9:32 AM EDT Marilee [facility] POINT OF CARE TEST ENTER/EDIT ORDERABLES Final Result * Hepatitis Panel, General (02/26/2025 7:32 AM EDT) Pathologist [facility] Hepatitis A IgM Nonreactive Nonreactive [facility] Comment:IgM antibodies to GIBSON V not detected; does not exclude earlyacute or recovered HAV infection. ~Hepatitis B Surface Antibody NONREACTIVE Nonreactive [facility] Comment:Nonreactive: < 8.00 mIU/mL Hepatitis B Core Antibody Nonreactive Nonreactive [facility] Hepatitis C Antibody Nonreactive Nonreactive [facility] Comment:Antibodies to HCV no t detected; does not exclude early acuteHCV infection. Hepatitis B Surface Ag Negative Negative [facility] 02/26/2025 7:32 AM EDT 02/26/2025 7:32 AM EDT us Generic External Data Provider LAB BLOOD ORDERAB LES Final Result Performing Organization Address [facility] de Phone Number [facility] [address] [place] [phone] * (ABNORMAL) Albumin, Random Urine W/Creatinine (12/25/2023 9:50 AM EST) Creatinine, Urine 162.10 mg/dL [facility] Microalbumin Urine >2,000.0 mg/L H [facility] Microalbum Creatinine Ratio Ur 1,233.8(H ) <30 ug/mg cr [facility] Comment:Albumin/Creatinine R atio Reference Ranges: Normal: < 30 ug/mg creatinine Microalbuminuria: 30 - 300 ug/mg creatinineClinical Albuminuria: > 300 ug/mg creatinine Urine 12/25/2023 9:50 AM EST 12/25/2023 2:38 PM EST Marilee LISAP LAB URINE ORDERABLES Final Res ult Performing Organization Address [facility] de Phone Number [facility] [address] [place] [phone] * HIV-1/2 Antigen and Antibodies, Fourth Generation, with Reflexes (09/13/2023 7:53 AM EST) HIV AB/AG Nonreactive Nonreactive [facility] Comment:HIV-1 p24 Ag and/or HIV-1/HIV-2 Ab not detected.A test result that is nonreactive does not exclude thepossibility of exposure to or infection with HIV-1 and/orHIV-2. Nonreactive results in this assay for individualswith prior exposure to HIV-1 and/or HIV-2 may be due toantigen and antibody levels that are below the limit ofdetection of this assay.The [email or web address] HIV Ag/Ab Combo assay result andsupplemental assay results should be interpreted inconjunction with the patient's clinical presentation,history and other laboratory results. If the results areinconsistent with clinical evidence, additional testing issuggested to confirm the result. Blood Venous blood specimen / Unknown 09/13/2023 7:53 AM EST 09/13/2023 7:53 AM EST us Marilee Cordero [facility] BLOOD ORDERABLES Final Res ult [facility] [address] [place] [phone] from Last 3 Months or Most Recently Relevant to Health Maintenance Insurance [facility] - HSN PARTIAL (MEDICAID) Care Teams Biomedical Equipment Support Specialist Relationship Specialty Start Date End Date Marilee Cordero FNP [address] [place] [address] PCP - General Family Medicine 03/23/23 Cristo Garcia MD [address] [place] [phone] Rheumatology 09/01/24 Yoselyn Lyons [address] [place] [address] Ophthalmology 09/01/24 Balbir Don [facility] [address] [place] [address] Sleep Medicine 09/01/24 Lindsay Nur PharmD [address] [place] [address] Pharmacist Pharmacy 05/29/25 Meño Butcher MD [address] [place] [address] 3[address] [place] [address] Cardiology 07/06/25 Dr. Ramirez [address] [place] [phone] Nephrology 09/01/24
--- OUTSIDE RECORDS SUMMARY | 2025-07-11 17:15 | XMS_ITS | Encounter Summary ---
Author Organization [employer] Address [address] [facility] 7t [place] [address] Care Team Providers Care Information Delivery Analyst Name Role Phone Marilee Cordero WINE CELLAR STOCK CLERK Primary Care Provider [phone] Cristo Garcia MD Unavailable Doris Candelario Unavailable [phone] Yoselyn Lyons Unavailable Unavailable Balbir Don Unavailable Lindsay NurD Unavailable [phone] Meño Butcher MD Unavailable [phone] Reason for Visit * Reason Comments Med Refill Encounter Details Date Type Department Care Team (Late st Contact Info) Description 07/23/2023 Refill [facility] MEDICINE [address] [place] [address] Donavan Mcgee AGNP Social History Tobacco Use [...] Description 08/14/2025 1:30 PM EDT Medication Management [facility] CHC MED & PEDS [address] [place] [address] Lindsay Nur PharmD [address] [place] [address] documented as of this encounter Visit Diagnoses Not on filedocumented in this encounter Additional Health Concerns Assessment Noted Time PHQ-9 Depression Total Score: 1 10/17/20 22 10:05 AM EST documented as of this encounter Care Teams Information Delivery Analyst Relationship Specialty Start Date End Date Marilee Cordero FNP [address] [place] [address] PCP - General Family Medicine 03/23/23 Cristo Garcia MD [address] [place] [phone] Rheumatology 09/01/24 Doris Candelario [address] [place] [address] Cardiology 09/01/24 07/05/25 Yoselyn Lyons [address] [place] [address] Ophthalmology 09/01/24 Balbir Don 22 [facility] 301 [place] [address] Sleep Medicine 09/01/24 Lindsay Nur, PharmD [address] [place] [address] Pharmacist Pharmacy 05/29/25 Meño Butcher MD [address] [place] [address] 3rd [place] [address] Cardiology 07/06/25 Dr. Ramirez [address] [address] Nephrology 09/01/24 Noman LEWISA 03/18/25 05/04/25 documented as of this encounter
--- OUTSIDE RECORDS SUMMARY | 2025-07-11 17:15 | XMS_ITS | Encounter Summary ---
Author Organization [employer] Address [address] [place] [address] 7t [place] [address] Care Team Providers Care Import Export Manager Name Role Phone Marilee Cordero Primary Care Provider [phone] Cristo Garcia MD Unavailable Doris Candelario Unavailable [phone] Yoselyn Lyons Unavailable Unavailable Balbir Don Unavailable Lindsay Nur PharmD Unavailable [phone] Meño Butcher MD Unavailable [phone] Reason for Referral * Consultation (Routine) - Closed Specialty Diagnoses / Procedures Referred By Contzena t Referred To Contact Nephrology Diagnoses Albuminuria Marilee Cordero FNP [address] [place] [address] Phone: tel: fax: Bayorn Marshall MD 100 [facility] 200 [place] [address] Phone: tel: fax: Referral ID Status Reason Start Date Expiration Date V isits Requested Visits Authorized [id number] Closed Specialty Services Required 12/29/2023 12/28/2024 1 1 Encounter Details Date Type Department Care Team (Late st Contact Info) Description 12/29/2023 Orders Only [facility] CHC MED & PEDS [address] [place], [place] [phone] Marilee Cordero FNP [address] [place], [place] [phone] Albuminuria (Primary Dx) Social History Tobacco Use [...] Description 08/14/2025 1:30 PM EDT Medication Management [facility] CHC MED & PEDS [address] [place] [address] Lindsay Nur, PharmD [address] [place] [address] documented as of this encounter Procedures Procedure [...] documented as of this encounter Care Teams Import Export Manager Relationship Specialty Start Date End Date Marilee Cordero FNP [address] [place] [address] PCP - General Family Medicine 03/23/23 Cristo Garcia MD [address] [place] [address] Rheumatology 09/01/24 Doris Candelario [address] [place] [address] Cardiology 09/01/24 07/05/25 Yoselyn Lyons [address] [place] [address] Ophthalmology 09/01/24 Balbir Don 22 [facility] 301 [place] [address] Sleep Medicine 09/01/24 Lindsay Nur PharmD [address] [place] [address] Pharmacist Pharmacy 05/29/25 Meño Butcher MD [address] [place] [address] 3rd [place] [address] Cardiology 07/06/25 Dr. Ramirez 100 [facility] 200 [place] [address] Nephrology 09/01/24 Noman LAWRENCE 03/18/25 05/04/25 documented as of this encounter
--- OUTSIDE RECORDS SUMMARY | 2025-07-11 17:15 | XMS_ITS | Clinical Summary ---
Author Organization [facility] [place] [address] Phone Care Team Providers Care Linotype Operator Name Role Phone Physician, Pcp Unknown Primary [...] - 06/07/2025 2:36 PM EDT Hospital Encounter [facility] [address] [place] [address] Bayron Hester MD Shapiro, Benjamin, [...] (hyper tension) DM2 (diabetes mellitus, type 2) ([facility] V24, [facility] V28) 06/04/2012 DX:DM2 (diabetes mellitus, t ype 2) ([facility]) Obstructive sleep apnea 06/04/2012 DX:Obstr uctive sleep apnea Psoriatic arthritis ([facility] V24, [facility] V28) 06/04/2012 DX:Psoriatic arthritis ([facility]) Hyperlipidemia 06/04/2012 DX:Hyperlipidemi a; COMMENT: [...] of4 resultswithin the time period is included. [facility] Glucose POCT 271(H) 70 - 100 mg/dL 06/07/2025 11:44 AM EDT [facility] Blood Capillary blood specimen / Unknown 06/07/2025 11:44 AM EDT 06/07/2025 11:45 AM EDT Corey Willingham MD LAB POINT O F CARE TEST DOCKED DEVICE UNSOLICITED RESULTS Final Result [facility] [address] [place] [address], * Troponin I high sensitivity (06/07/2025 5:51 AM EDT) Only the most recent of4 resultswithin the time period is included. [facility] High Sensitivity Troponin I 38 <=79 ng/L LAB CHEMISTRY METHOD 06/07/2025 6:58 AM EDT [facility] Blood Venous blood specimen / Unknown Venipuncture / Unknown 06/07/2025 5:51 AM EDT 06/07/2025 6:22 AM EDT Narrative [facility] - 06/07/2025 6:58 AM EDT High levels of biotin in samples may falsely decrease hsTroponin values. Use caution when interpreting hsTroponin results in patients taking biotin who exhibit renal impairment (eGFR <60) or in patients taking more than 20 mg/day of biotin. us Hyacinth DORSEY LAB BLOOD ORDERABLES Final R esult [facility] [address] [place] [address], [place] [phone] * (ABNORMAL) Complete blood count (06/07/2025 5:51 AM EDT) WBC 5.7 4.8 - 10.8 K/mcL LAB HEMETOLOGY METHOD 06/07/2025 8:00 AM [facility] RBC 5.00 4.50 - 5.50 M/mcL LAB HEMETOLOGY METHOD 06/07/2025 8:00 AM [facility] Hemoglobin 13.6 13.5 - 17.5 g/dL LAB HEMETOLOGY METHOD 06/07/2025 8:00 AM [facility] Hematocrit 41.7(L) 42.0 - 54.0 % LAB HEMETOLOGY METHOD 06/07/2025 8:00 AM [facility] MCV 84.2 79.0 - 98.0 FL LAB HEMETOLOGY METHOD 06/07/2025 8:00 AM [facility] MCH 27.5 27.0 - 32.0 pcg LAB HEMETOLOGY METHOD 06/07/2025 8:00 AM [facility] MCHC 32.6 32.0 - 37.0 g/dL LAB HEMETOLOGY METHOD 06/07/2025 8:00 AM [facility] RDW 13.6 11.0 - 15.0 % LAB HEMETOLOGY METHOD 06/07/2025 8:00 AM [facility] Platelets 243 130 - 400 K/mcL LAB HEMETOLOGY METHOD 06/07/2025 8:00 AM [facility] MPV 9.7 7.0 - 11.0 FL LAB HEMETOLOGY METHOD 06/07/2025 8:00 AM EDT [facility] NRBC 0.0 <1.0 % LAB HEMETOLOGY METHOD 06/07/2025 8:00 AM EDT [facility] NRBC Absolute 0.00 <0.10 K/mcL LAB HEMETOLOGY METHOD 06/07/2025 8:00 AM EDT [facility] Blood Venous blood specimen / Unknown Venipuncture / Unknown 06/07/2025 5:51 AM EDT 06/07/2025 6:23 AM EDT Hyacinth DORSEY LAB BLOOD ORDERABLES Final R esult Performing Organization Address [facility]/ZIP Co de Phone Number [facility] [address] [place] [address], [place] [phone] * (ABNORMAL) Magnesium (06/07/2025 5:51 AM EDT) Magnesium 2.7(H) 1.9 - 2.6 mg/dL LAB CHEMISTRY METHOD 06/07/2025 6:58 AM EDT [facility] Blood Venous blood specimen / Unknown Venipuncture / Unknown 06/07/2025 5:51 AM EDT 06/07/2025 6:23 AM EDT Hyacinth DORSEY LAB BLOOD ORDERABLES Final R esult Performing Organization Address City/[facility]/ZIP Co de Phone Number [facility] [address] [place] [address], [place] [phone] * (ABNORMAL) Basic metabolic panel (06/07/2025 5:51 AM EDT) Only the most recent of2 resultswithin the time period is included. Sodium 139 133 - 145 mmol/L LAB CHEMISTRY METHOD 06/07/2025 6:58 AM EDT [facility] Potassium 3.6 3.5 - 5.5 mmol/L LAB CHEMISTRY METHOD 06/07/2025 6:58 AM [facility] Chloride 99 96 - 110 mmol/L LAB CHEMISTRY METHOD 06/07/2025 6:58 AM [facility] CO2 35(H) 21 - 32 mmol/L LAB CHEMISTRY METHOD 06/07/2025 6:58 AM [facility] Anion Gap 5 3 - 11 LAB CHEMISTRY METHOD 06/07/2025 6:58 AM [facility] Glucose 200(H) 70 - 100 mg/dL LAB CHEMISTRY METHOD 06/07/2025 6:58 AM [facility] BUN 29(H) 5 - 25 mg/dL LAB CHEMISTRY METHOD 06/07/2025 6:58 AM [facility] Creatinine 1.20 0.70 - 1.30 mg/dL LAB CHEMISTRY METHOD 06/07/2025 6:58 AM [facility] eGFR 71 >=60 mL/min/1. 73m2 LAB CHEMISTRY METHOD 06/07/2025 6:58 AM [facility] Comment:Calculation based on the Chronic Kidney Disease Epidemiology Collaboration (CKD-EPI) equation refit without adjustment for race. BUN/Creatinine Ratio 24.2 LAB CHEMISTRY METHOD 06/07/2025 6:58 AM [facility] Calcium 9.2 8.5 - 10.5 mg/dL LAB CHEMISTRY METHOD 06/07/2025 6:58 AM [facility] Blood Venous blood specimen / Unknown Venipuncture / Unknown 06/07/2025 5:51 AM EDT 06/07/2025 6:23 AM EDT us Hyacinth DORSEY LAB BLOOD ORDERABLES Final R esult [facility] [address] [place] [address], [place] [phone] * SST tube (06/06/2025 7:06 PM EDT) Extra Tube Hold for add-ons. 06/06/2025 9:01 PM EDT [facility] Comment:Auto resulted. Blood Venous blood specimen / Unknown 06/06/2025 7:06 PM EDT 06/06/2025 7:26 PM EDT us Danny Larose DO LAB BLOOD ORDERABLES Final R esult Performing Organization Address City/[facility]/ZIP Co de Phone Number [facility] [address] [place] [address], [place] [phone] * Light blue tube (06/06/2025 7:06 PM EDT) Pathologist [facility] Extra Tube Hold for add-ons. 06/06/2025 9:01 PM EDT [facility] Comment:Auto resulted. Blood Venous blood specimen / Unknown 06/06/2025 7:06 PM EDT 06/06/2025 7:26 PM EDT us Danny Larose DO LAB BLOOD ORDERABLES Final R esult Performing Organization Address City/[facility]/ZIP Co de Phone Number [facility] [address] [place] [address], [place] [phone] * Respiratory virus panel molecular study (06/06/2025 3:52 PM EDT) Pathologist [facility] Adenovirus Detection by PCR Not Detected Not Detected LAB MICROBIOLOGY METHOD 06/06/2025 5:19 PM EDT [facility] Influenza A PCR Not Detected Not Detected LAB MICROBIOLOGY METHOD 06/06/2025 5:19 PM EDT [facility] Influenza B PCR Not Detected Not Detected LAB MICROBIOLOGY METHOD 06/06/2025 5:19 PM EDT [facility] Coronavirus 229E Not Detected Not Detected LAB MICROBIOLOGY METHOD 06/06/2025 5:19 PM EDT [facility] Coronavirus HKU1 Not Detected Not Detected LAB MICROBIOLOGY METHOD 06/06/2025 5:19 PM EDT [facility] Coronavirus OC43 Not Detected Not Detected LAB MICROBIOLOGY METHOD 06/06/2025 5:19 PM EDT [facility] Coronavirus NL63 Not Detected Not Detected LAB MICROBIOLOGY METHOD 06/06/2025 5:19 PM EDT [facility] Parainfluenza Virus 1 Not Detected Not Detected LAB MICROBIOLOGY METHOD 06/06/2025 5:19 PM EDT [facility] Parainfluenza Virus 2 Not Detected Not Detected LAB MICROBIOLOGY METHOD 06/06/2025 5:19 PM EDT [facility] Parainfluenza Virus 3 Not Detected Not Detected LAB MICROBIOLOGY METHOD 06/06/2025 5:19 PM EDT [facility] Parainfluenza Virus 4 Not Detected Not Detected LAB MICROBIOLOGY METHOD 06/06/2025 5:19 PM EDT [facility] RSV PCR Not Detected Not Detected LAB MICROBIOLOGY METHOD 06/06/2025 5:19 PM EDT [facility] Human Metapneumovirus A and B Not Detected Not Detected LAB MICROBIOLOGY METHOD 06/06/2025 5:19 PM EDT [facility] Rhinovirus/Entero virus Not Detected Not Detected LAB MICROBIOLOGY METHOD 06/06/2025 5:19 PM EDT [facility] Bordetella pertussis Not Detected Not Detected LAB MICROBIOLOGY METHOD 06/06/2025 5:19 PM EDT [facility] Bordetella parapertussis Not Detected Not Detected LAB MICROBIOLOGY METHOD 06/06/2025 5:19 PM EDT [facility] Mycoplasma pneumo by PCR Not Detected Not Detected LAB MICROBIOLOGY METHOD 06/06/2025 5:19 PM EDT [facility] Chlamydia pneumoniae Not Detected Not Detected LAB MICROBIOLOGY METHOD 06/06/2025 5:19 PM EDT [facility] SARS COV-2 Not Detected Not Detected LAB MICROBIOLOGY METHOD 06/06/2025 5:19 PM EDT [facility] Swab Both anterior nares / Unknown Non-blood Collection / Unknown 06/06/2025 3:52 PM EDT 06/06/2025 4:14 PM EDT Narrative [facility] - 06/06/2025 5:19 PM EDT Testing was performed using the [employer] Respiratory Pathogen PCR Assay. All results must [...] MICROBIOLOGY - GENERAL O RDERABLES Final Result [facility] [address] [place] [address], [place] [phone] * CT Angio Chest wo and/or w [...] Signed Date: 06/06/2025 15:19 ET Workstation ID: [id number] Transcribed By: Self Edit Transcribed Date: 06/06/2025 [...] Signed Date: 06/06/2025 15:19 ET Workstation ID: [id number] Transcribed By: Self Edit Transcribed Date: 06/06/2025 15:12 ET Bayron Hester MD IMG CT PROCEDURES Final Res ult * D-dimer, quantitative (06/06/2025 11:48 AM EDT) D-Dimer, Quant (D-DU) 191 <=230 ng/mL DDU LAB COAGULATION METHOD 06/06/2025 12:27 PM EDT [facility] Blood Venous blood specimen / Unknown Venipuncture / Unknown 06/06/2025 11:48 AM EDT 06/06/2025 12:15 PM EDT Narrative [facility] - 06/06/2025 12:27 PM [...] Hester MD LAB BLOOD ORDERABLES Final Result [facility] [address] [place] [address], [place] [phone] * XR Chest 1 View (06/06/2025 11:04 AM EDT) Anatomical Region Laterality Modality Body Radiographic Aleida ging 06/06/2025 11:0 7 AM EDT Impressions 06/06/2025 11:08 AM EDT No acute pulmonary disease. Pulmonary vascular congestion consistent with congestive heart failure has resolved since 02/15/2025. Cardiomegaly is stable. Code 02434 -------- FINAL REPORT -------- Dictated By: Ceasar Lopez Dictated Date: 06/06/2025 11:07 ET Assigned Physician: Ceasar Lopez Reviewed and Electronically Signed By: Ceasar Lopez Signed Date: 06/06/2025 11:08 ET Workstation ID: [id number] Transcribed By: Self Edit Transcribed Date: 06/06/2025 [...] has resolved since 02/15/2025. Cardiomegaly isstable. Code 90431 -------- FINAL REPORT -------- Dictated By: Ceasar Lopez Dictated Date: 06/06/2025 11:07 ET Assigned Physician: Ceasar Lopez Reviewed and Electronically Signed By: Ceasar Lopez Signed Date: 06/06/2025 11:08 ET Workstation ID: [id number] Transcribed By: Self Edit Transcribed Date: 06/06/2025 11:07 ET us Bayron Hester MD IMG XR PROCEDURES Final Res ult * ECG 12 lead (06/06/2025 10:54 AM EDT) Ventricular Rate ECG 65 BPM GEMUSE Atrial Rate 65 BPM GEMUSE P-R Interval 144 ms GEMUSE QRS Duration 78 ms GEMUSE Q-T Interval 438 ms GEMUSE QTc 455 ms GEMUSE P Wave [place] 26 degrees GEMUSE R [place] 4 degrees GEMUSE T [place] 116 degrees GEMUSE ECG Interpretation Normal sinus [...] LAB HEMETOLOGY METHOD 06/06/2025 10:58 AM EDT [facility] RBC 5.40 4.50 - 5.50 M/mcL LAB HEMETOLOGY METHOD 06/06/2025 10:58 AM EDT [facility] Hemoglobin 15.3 13.5 - 17.5 g/dL LAB HEMETOLOGY METHOD 06/06/2025 10:58 AM EDT [facility] Hematocrit 44.2 42.0 - 54.0 % LAB HEMETOLOGY METHOD 06/06/2025 10:58 AM EDT [facility] MCV 81.4 79.0 - 98.0 FL LAB HEMETOLOGY METHOD 06/06/2025 10:[facility] MCH 28.2 27.0 - 32.0 pcg LAB HEMETOLOGY METHOD 06/06/2025 10:58 [facility] MCHC 34.6 32.0 - 37.0 g/dL LAB HEMETOLOGY METHOD 06/06/2025 10:58 [facility] RDW 13.2 11.0 - 15.0 % LAB HEMETOLOGY METHOD 06/06/2025 10:58 AM [facility] Platelets 230 130 - 400 K/mcL LAB HEMETOLOGY METHOD 06/06/2025 10:58 AM [facility] MPV 9.7 7.0 - 11.0 FL LAB HEMETOLOGY METHOD 06/06/2025 10:58 AM [facility] NRBC 0.0 <1.0 % LAB HEMETOLOGY METHOD 06/06/2025 10:58 AM [facility] NRBC Absolute 0.00 <0.10 K/mcL LAB HEMETOLOGY METHOD 06/06/2025 10:58 AM [facility] Neutrophils Relative 80.0 % LAB HEMETOLOGY METHOD 06/06/2025 10:58 AM [facility] Lymphocytes Relative 10.3 % LAB HEMETOLOGY METHOD 06/06/2025 10:58 AM [facility] Monocytes Relative 7.7 % LAB HEMETOLOGY METHOD 06/06/2025 10:58 AM [facility] Eosinophils Relative 1.2 % LAB HEMETOLOGY METHOD 06/06/2025 10:58 AM [facility] Basophils Relative 0.4 % LAB HEMETOLOGY METHOD 06/06/2025 10:58 AM [facility] Immature Granulocytes Relative 0.4 % LAB HEMETOLOGY METHOD 06/06/2025 10:58 AM [facility] Neutrophils Absolute 5.54 1.50 - 7.00 K/mcL LAB HEMETOLOGY METHOD 06/06/2025 10:58 AM [facility] Lymphocytes Absolute 0.71(L) 1.00 - 5.00 K/mcL LAB HEMETOLOGY METHOD 06/06/2025 10:58 AM [facility] Monocytes Absolute 0.53 0.20 - 1.00 K/mcL LAB HEMETOLOGY METHOD 06/06/2025 10:58 AM EDT [facility] Eosinophils Absolute 0.08 0.00 - 0.50 K/[facility] LAB HEMETOLOGY METHOD 06/06/2025 10:58 AM EDT [facility] Basophils Absolute 0.03 0.00 - 0.20 K/[facility] LAB HEMETOLOGY METHOD 06/06/2025 10:58 AM EDT [facility] Immature Granulocytes Absolute 0.03 0.00 - 0.03 K/[facility] LAB HEMETOLOGY METHOD 06/06/2025 10:58 AM EDT [facility] Blood Venous blood specimen / Unknown Venipuncture / Unknown 06/06/2025 10:42 AM EDT 06/06/2025 10:50 AM EDT Bayron Hester MD LAB BLOOD ORDERABLES Final Result Performing Organization Address City/[facility]/ZIP Co de Phone Number [facility] [address] [place] [address], [place] [phone] * B-type natriuretic peptide (06/06/2025 10:42 AM EDT) [facility] BNP 92 <=100 pcg/mL LAB CHEMISTRY METHOD 06/06/2025 11:29 AM EDT [facility] Blood Venous blood specimen / Unknown Venipuncture / Unknown 06/06/2025 10:42 AM EDT 06/06/2025 10:50 AM EDT Bayron Hester MD LAB BLOOD ORDERABLES Final Result [facility] [address] [place] [address], [place] [phone] * Serum albumin (06/06/2025 10:42 AM EDT) Pathologist [facility] Albumin 3.2 3.2 - 5.0 g/dL LAB CHEMISTRY METHOD 06/06/2025 2:58 PM EDT [facility] Blood Venous blood specimen / Unknown Venipuncture / Unknown 06/06/2025 10:42 AM EDT 06/06/2025 10:50 AM EDT Hyacinth DORSEY LAB BLOOD ORDERABLES Final R esult Performing Organization Address City/[facility]/ZIP Co de Phone Number [facility] [address] [place] [address], [place] [phone] * Hepatitis C antibody (02/16/2025 2:00 PM EDT) Hepatitis C Antibody Negative Negative LAB CHEMISTRY METHOD 02/16/2025 5:37 PM EDT [facility] Blood Venous blood specimen / Unknown Venipuncture / Unknown 02/16/2025 2:00 PM EDT 02/16/2025 2:05 PM EDT Ish David MD LAB BLOOD ORDERABLES Final Res ult Performing Organization Address [facility]/ZIP Co de Phone Number [facility] [address] [place] [address], [place] [phone] from Last 3 Months or Most Recently Relevant to Health Maintenance Insurance [facility] [employer] Advance Directives * Full Code [...] currently active code status orders. Care Teams Linotype Operator Relationship Specialty Start Date End Date Physician, Pcp Unknown PCP - General 05/01/25
== END 2025-07-11 15:35 | disposition home or self-care (01) ==
LOC: HO.HUSH 14:20
PROVIDERS: PCP Registered Nurse; Visit Provider Urology
DX: N40.1 Benign prostatic hyperplasia with lower urinary tract symptoms (principal); R31.9 Hematuria, unspecified; R80.9 Proteinuria, unspecified; Z13.9 Encounter for screening, unspecified; R31.0 Gross hematuria
CPT/HCPCS: 52000

== ENCOUNTER → 2025-07-11 14:20 | Outpatient (BNVA) | payer OTHER, SELFPAY | PROVIDERS: PCP Registered Nurse; Visit Provider Urology | DX: N40.1 Benign prostatic hyperplasia with lower urinary tract symptoms (principal) | CPT/HCPCS: 52000; 81003 ==

== ENCOUNTER 2025-07-15 12:06 | Outpatient (AMB) | payer OTHER, SELFPAY ==
[2025-07-15 12:34] VITALS: BP 138/68; PULSE 76; BMI 30.5
--- NOTE | 2025-07-15 12:34 | MHC.OFFVIS ---
Vital Signs 07/15/25 12:34 Height 6 ft Weight 224 lb 13.944 oz BMI 30.5 BP 138/68 Blood Pressure Location Lt brachial Position Sitting Pulse 76 Pulse Source Pulse Oximeter Intake Visit Reasons: 2m follow up Floral Manager Required: Yes Floral Manager Name: BRADLEY [id number] Allergies No Known Allergies Allergy (Verified 07/11/25 14:44) Medication List - Last Reconciled 07/15/25 by Meño Butcher MD acetaminophen 650 mg PO TID PRN aspirin 81 mg PO DAILY atorvastatin 40 mg PO BEDTIME carvedilol 6.25 mg PO BID empagliflozin (Jardiance) 10 mg PO DAILY furosemide (Lasix) 80 mg PO BID ixekizumab (Taltz Autoinjector) 80 mg subcut Q4W metformin ER 500 mg PO BID sacubitril-valsartan 49-51 mg (Entresto) 1 tab PO BID spironolactone 25 mg PO DAILY tamsulosin 0.4 mg PO QPM HPI Comments Details: Joesph returns for follow-up. He was previously seen in consultation regarding cardiomyopathy. 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 It seems that he was getting care at [facility] but would like to switch his care to [facility]. For the most part, he states he is feeling fine. Some tiredness and nonspecific complaints but no clear exertional angina. Many comorbidities including obesity, type 2 diabetes, hypertension, dyslipidemia, untreated sleep apnea. [facility] Medical History Dyspnea on minimal exertion Pulmonary hypertension Dyspnea on exhalation RAKAN (obstructive sleep apnea) CHF (congestive heart failure) Psoriasis Psoriatic arthritis Hypercholesteremia Lumbago with sciatica, right side Elev transaminase/LDH Neuropathy Diabetes Psoriasis Family History Father Diabetes HTN (hypertension) Mother Diabetes Social History Household Members: Spouse Housing: House Do you presently have visiting nurse or other home services: No Alcohol intake: never Patient Tobacco Use Status: Never used Tobacco e-Cigarette/Vaping Use: Never Used service: No Current occupational status: employed 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 Review of Systems Const Denies weakness ENT Denies dizziness Card Denies chest pain, Denies chest pain with activity, Denies syncope, Denies rapid heart rate, Denies pedal edema, Denies edema, Denies leg edema, Denies lightheadedness, Denies palpitations, Denies dyspnea, Denies dyspnea on exertion and Denies orthopnea Resp Denies cough, Denies dyspnea and Denies dyspnea on exertion GI Denies hematochezia and Denies change in stool character Musc Denies abnormal gait, Denies muscle cramps, Denies muscle weakness, Denies numbness, Denies radiating pain into limb and Denies tingling Neuro Denies abnormal gait, Denies dizziness, Denies syncope, Denies numbness, Denies tingling and Denies weakness Endo Denies palpitations Physical Exam Vital Signs: Last Vital Signs Pulse 76 07/15/25 12:34 BP 138/68 07/15/25 12:34 BMI result Body Mass Index 30.5 Const General: comfortable and no acute distress Orientation/consciousness: patient oriented x3 HEENT Other: Unremarkable Head: Yes normal to inspection Neck Neck: Yes normal visual inspection Chest Chest palpation & inspection: normal inspection of the chest Resp Auscultation: clear to auscultation bilaterally Cardio Palpation: normal PMI Heart sounds: S1 normal heart sound present, S2 normal heart sound present, no gallops, no murmurs and no rubs GI Palpation (GI): Soft to palpation Back/Spine/Pelvis Other: unremarkable Skin General skin exam: no rashes or lesions noted Neuro General: patient oriented x3 Extrem General: Yes normal to inspection Psych Mental Status: mental status grossly normal Assessment & Plan Assessment & Plan (1) Chronic combined systolic and diastolic CHF (congestive heart failure): Comment: Code(s): I50.42 - Chronic combined systolic (congestive) and diastolic (congestive) heart failure Category: Medical (2) Atherosclerotic cardiovascular disease: Code(s): I25.10 - Atherosclerotic heart disease of resighini coronary artery without angina pectoris Category: Medical Plan Cardiac studies reviewed. Cardiac catheterization from 2023-proximal LAD 30% stenosis. Distal LAD 50% stenosis. Minimal to mild disease elsewhere. Per cath report, LVEF of 35-40%. In the more recent echocardiogram from February 2025, LVEF 45-50% with moderate diastolic dysfunction. [id number] pulmonary hypertension. Currently on optimal medications for congestive heart failure including carvedilol, Entresto, spironolactone Jardiance. On diuretics-Lasix. With regard to nonobstructive CAD, he has no angina. On statins. Lipids are slightly elevated and we discussed about that today. He states he is trying to lose weight and hopefully that will help. If not, may either increase statin dose or add Zetia. With regard to the history of obstructive sleep apnea, he has been referred to Pulmonary. Ideally, CPAP after their assessment. Follow up in [address] using certified court interpreter. Discussion Notes During the visit, we discussed the patient's fatigue and the need to monitor this symptom closely. We also reviewed the patient's cholesterol levels and the potential need for dietary changes or medication adjustments if levels remain high. The patient's heart condition, including cardiomegaly and heart failure, was evaluated, and it was determined that the condition is stable with current treatment. Patient was informed and verbally consented to the use of an ambient scribe for clinic note documentation during this visit. Patient Instructions: - Monitor fatigue and report any worsening symptoms. - Maintain a healthy diet to manage cholesterol levels. - Attend regular follow-up appointments to monitor heart health. Coding Level of Care Code Est Pt Level 4 (54007) Complex EM visit Add On G2211 Diagnoses Chronic combined systolic and diastolic CHF (congestive heart failure) I50.42 Atherosclerotic cardiovascular disease I25.10
--- OUTSIDE RECORDS SUMMARY | 2025-07-15 16:14 | XMS_ITS | Encounter Summary ---
Author Organization [employer] Address [address] [facility] [address] [place] [address] Care Team Providers Care Medical Insurance Claims Processor Name Role Phone Marilee Cordero Primary Care Provider [phone] Cristo Garcia MD Unavailable Doris Candelario Unavailable [phone] Yoselyn Lyons Unavailable Unavailable Balbir Don Unavailable Lindsay NurD Unavailable [phone] Meño Butcher MD Unavailable [phone] Reason for Visit * Reason Onset Date Comments Hospital Follow-up 03/17/2025 Encounter Details Date Type Department Care Team (Late st Contact Info) Description 03/17/2025 Telephone [facility] MEDICINE [address] [place] [address] Marilee Cordero FNP [address] [place], [place] [id number] Hospital Follow-up Social History Tobacco Use Types [...] from pt requesting a HDF appt. Hospital: [facility] Date of admission: 03/11/25 Discharge date: 03/15/25 Diagnosed: Leg pain and goes up to back *Send message to Noman Clinical Care Coordinators documented in this encounter Plan of Treatment Upcoming Encounters Date Type Department Care Team (Late st Contact Info) Description 08/14/2025 1:30 PM EDT Medication Management [facility] MED & PEDS [address] [place] [address] Lindsay Nur, PharmD [address] [place] [address] documented as of this encounter Visit Diagnoses Not on filedocumented in this encounter Additional Health Concerns Assessment Noted Time PHQ-9 Depression Total Score: 13 03/31/2 025 8:59 AM EDT documented as of this encounter Care Teams Medical Insurance Claims Processor Relationship Specialty Start Date End Date Marilee Cordero FNP [address] [place] [address] PCP - General Family Medicine 03/23/23 Cristo Garcia MD [address] [place] [address] [address] [place] [address] Rheumatology 09/01/24 Doris Candelario [address] [place] [address] Cardiology 09/01/24 07/05/25 Yoselyn Lyons [address] [place] [address] Ophthalmology 09/01/24 Balbir Don [address] [facility] [address] [place] [address] Sleep Medicine 09/01/24 Lindsay Nur PharmD [address] [place] [address] Pharmacist Pharmacy 05/29/25 Meño Butcher MD [address] [place] [address] [address] [place] [address] Cardiology 07/06/25 Dr. Ramirez 100 [facility] [address] [place] [address] Nephrology 09/01/24 [facility] 03/18/25 05/04/25 documented as of this encounter
--- OUTSIDE RECORDS SUMMARY | 2025-07-15 16:14 | XMS_ITS | Encounter Summary ---
Author Organization [employer] Address [address] [facility] [address] [place] [address] Care Team Providers Care Propeller Inspector Name Role Phone Marilee Cordero MAPPING SPECIALIST Primary Care Provider [phone] Cristo Garcia MD Unavailable Doris Candelario Unavailable [phone] Yoselyn Lyons Unavailable Unavailable Balbir Don Unavailable Lindsay NurD Unavailable [phone] Meño Butcher MD Unavailable [phone] Reason for Visit * Reason Comments Med Refill Encounter Details Date Type Department Care Team (Late st Contact Info) Description 07/23/2023 Refill [facility] MEDICINE [address] [place] [address] Donavan Mcgee AGNP Social History Tobacco Use [...] Description 08/14/2025 1:30 PM EDT Medication Management [facility] CH[facility] MED & PEDS [address] [place] [address] Lindsay Nur PharmD [address] [place] [address] documented as of this encounter Visit Diagnoses Not on filedocumented in this encounter Additional Health Concerns Assessment Noted Time PHQ-9 Depression Total Score: 1 10/17/20 22 10:05 AM EST documented as of this encounter Care Teams Propeller Inspector Relationship Specialty Start Date End Date Marilee Cordero FNP [address] [place] [address] PCP - General Family Medicine 03/23/23 Cristo Garcia MD [address] [place] [address] Rheumatology 09/01/24 Doris Candelario [address] [place] [address] Cardiology 09/01/24 07/05/25 Yoselyn Lyons [address] [place] [address] Ophthalmology 09/01/24 Balbir Don 22 [facility] [address] [place] [address] Sleep Medicine 09/01/24 Lindsay Nur, PharmD [address] [place] [address] Pharmacist Pharmacy 05/29/25 Meño Butcher MD [address] [place] [address] 3rd [place] [address] Cardiology 07/06/25 Dr. Ramirez [address] [address] Nephrology 09/01/24 Noman LEWISA 03/18/25 05/04/25 documented as of this encounter
--- OUTSIDE RECORDS SUMMARY | 2025-07-15 16:14 | XMS_ITS | Clinical Summary ---
Author Organization [employer] Address [address] [place] [address] Care Team Providers Care Baker Apprentice Name Role Phone Marilee Cordero BRANDEN Primary Care Provider [phone] Cristo Garcia MD Unavailable Yoselyn Lyons Unavailable Unavailable Balbir Don Unavailable Lindsay Nur PharmD Unavailable [phone] Meño Butcher MD Unavailable [phone] Allergies No known active allergies Medications Blood Pressure kit Use daily Active Blood Glucose Monitoring Suppl (FreeStyle Orland Lite) w/Device kit 1 each by Other [...] hyperglycemia, with long-term current use of insulin ([facility]) Subcutaneous once daily use with lantus pen 100 each 3 3 Active gabapentin (Neurontin) 100 MG capsuleIndicati ons:Peripheral nerve disease TAKE 1 CAPSULE BY MOUTH EVERY EVENING (for nerve pain) 90 capsule 1 3 Active metFORMIN XR (Glucophage-XR) 500 MG 24 hr tabletIndicatio ns:Type 2 diabetes mellitus with hyperglycemia, with long-term current use of insulin ([facility]/HCC) TAKE 1 TABLET BY MOUTH TWICE DAILY [...] Date Hematuria 04/29/2025 Overview (07/06/2025): Following with [facility] Urology - Dr. Cramer Assessment & Plan [...] UA, confirmed with send out Following with [facility] Urology Diabetic polyneuropathy asso ciated with type [...] Followed by [facility] - Dr. James Hogan 10mg daily Psoriatic arthritis 08/30/2024 Overview (04/01/2025): Followed by [facility] Rheum - Dr. Garcia Med therapy: DMARD [...] failure 11/26/2023 Overview (07/06/2025): Previously following with [facility], established with [facility] - Dr. Butcher April: Nuclear stress test: [...] Hospitalization for CHF exacerbation: Oct 2023 at [facility] - Reviewed condition and concerning signs/symptoms Pharmacotherapy: Aspirin 81mg daily Atorvastatin 40mg nightly Furosemide 40mg BID (RX nephrology) Spironolactone 25mg daily (RX cards) Jardiance 25mg daily Carvedilol 6.25mg BID Entresto 24-26mg BID Assessment & Plan (04/01/2025 7:07 PM EDT): Follow-up with [facility] cards as scheduled in April 2025. Reports they are already on wait list in case anything sooner becomes available. Assessment & Plan (01/27/2025 9:50 AM EDT): Cont current therapy, symptomatic SOB/BELL Referral to [facility] for further eval Assessment & Plan [...] following with renal for proteinuria -Established with [facility] CDTM Assessment & Plan (04/01/2025 7:01 PM EDT): - Initial BG reading [facility]. Repeat value [facility] s/p 10 units lispro. Re-check #3 resulted 436 s/p second dose of 10 units insulin lispro. Pt unable to void for UA. Discussed ED precautions. - Previous rx of Jardiance 10mg daily (rx through [facility] - unclear if currently taking) - No [...] tx in Rheum note 02/04/21) -Re-established with [facility] Rheum Nov 2021, last consult appt December 2023 Plan to hold methotrexate with hx cardiac conditions Taltz injections through Rheum with notable improvement Assessment & Plan (03/03/2024 2:42 PM EDT): -Previous tx with methotrexate and Enbrel (hx of failed Humira tx in Rheum note 02/04/21) -Re-established with [facility] Rheum Nov 2021, last consult appt December 2023 Plan to hold methotrexate with hx cardiac conditions Authorization for Taltz is pending Assessment & Plan (08/11/2023 1:16 PM EDT): -Previous tx with methotrexate and Enbrel (hx of failed Humira tx in Rheum note 02/04/21) -Re-established with [facility] Rheum Nov 2021 Says may have re-started on methotrexate but unsure. Will bring med list to next appt. -Pt was also referred to [facility] Derm Team, appt pending Assessment & Plan (04/12/2023 1:37 PM EDT): -Previous tx with methotrexate and Enbrel (hx of failed Humira tx in Rheum note 02/04/21) -Re-established with [facility] Rheum Nov 2021 Says may have re-started on methotrexate but unsure. Will bring med list to next appt. -Pt was also referred to [facility] Derm Team, appt pending Assessment & Plan (10/20/2022 9:18 AM EST): -Previous tx with methotrexate and Enbrel (hx of failed Humira tx in Rheum note 02/04/21) -Reports has not been taking any meddications for psoriasis in > 6 month, interested in re-establishing with specialists -Upcoming appt with [facility] Rheum Nov 2021 -Pt was also referred to [facility] Derm Team, appt pending Hypertension 06/13/2012 Assessment [...] apnea syndrome 06/13/2012 Overview (09/01/2024): Following with [facility] - Dr. Balbir Don Cont w/ CPAP, need updated titration report (home sleep study ordered Jul 2024 per specialist) Assessment & Plan (08/13/2023 8:36 AM EDT): Continues with CPAP nightly Due for settings adjustment, and also reporting intermittent discomfort with mask Referral to [facility] Sleep Medicine for further eval and management Resolved Problems Problem Noted Date Diagnosed Date Resolved Date Retention of urine 02/26/2015 3 Elevated levels of transamin ase & lactic acid dehydrogenase 08/14/2012 10/20/2022 Encounters Date Type Department Care Team Description 07/08/2025 Results Follow-Up [facility] [address] [place] [address] Marilee Cordero FNP Lipid Panel, Standard, Vitamin B12/Folate, Serum Panel, Methylmalonic Acid 07/04/2025 8:30 AM EDT Office Visit [facility] [address] [place] [address] Marilee Cordero FNP Type 2 diabetes mellitus with hyperglycemia, with long-term current use of insulin (CMS/HCC) (Primary Dx); Dietary counseling; Exercise counseling; Hematuria, unspecified type; Psoriatic arthritis (CMS/HCC); Diabetic polyneuropathy associated with type 2 diabetes mellitus (CMS/HCC); Congestive heart failure, unspecified HF chronicity, unspecified heart failure type (CMS/HCC); Numbness and tingling in both hands 07/04/2025 Orders Only GENERIC EXTERNAL DATA DEPARTMENT Provider, Generic External Data 07/04/2025 Travel 07/03/2025 Telephone [facility] [address] [place] [address] Marilee Cordero FNP chart prep 06/26/2025 Travel 05/29/2025 Travel 04/30/[address] [facility] MEDICINE [address] [place], [place] [phone] Marilee Cordero FNP Call Back Request 04/29/[address] [facility] MEDICINE [address] [place] [address] Marilee Cordero FNP 04/29/[address] [facility]S [address] [place], [place] [phone] Marilee Cordero FNP DME: COLIN DYE 04/28/2025 9:00 AM EDT Office Visit [facility] [address] [place], [place] [phone] Marilee Cordero FNP Type 2 diabetes mellitus with hyperglycemia, with long-term current use of insulin ([facility]) (Primary Dx); Hematuria, unspecified type; [...] Description 08/14/2025 1:30 PM EDT Medication Management [facility] [address] [place] [address] Lindsay Nur, PharmD [address] [place] [address] Health Maintenance Due Date Last Done Comments [...] Vitamin B12 237 200 - 900 pg/mL [facility] Comment:NORMAL 200-900 PG/ML INDETERMINATE 160-199 PG/ML DEFICIENT < 160 PG/ML Folate 9.4 > or = 4.0 ng/mL [facility] Comment:Reference Values:> o r = 4.0 ng/mL< 4.0 ng/mL suggests folate deficiency Methotrexate, aminopterin and folinic acid(leucovorin) are chemotherapeutic agents whose molecularstructures are similar to folate; therefore, the Architectfolate assay cannot be used for patients using these drugs. Blood Venous blood specimen / Unknown 07/04/2025 10:07 AM EDT 07/04/2025 11:47 AM EDT us Marilee Cordero SERVICE ATTENDANT LAB BLOOD ORDERABLES Final Res ult [facility] [address] [place] [address] [phone] * (ABNORMAL) CBC auto differential (07/04/2025 10:07 AM EDT) White Blood Count 6.5 4.8 - 10.8 X10*3/uL [facility] Red Blood Count 4.74 4.60 - 5.80 X10*6/uL [facility] Hemoglobin 13.7(L) 14.0 - 18.0 g/dl [facility] Hematocrit 39.5(L) 42.0 - 52.0 % [facility] Mean Corpuscular Volume 83.3 80.0 - 98.0 fL [facility] Mean Corpuscular Hemoglobin 28.9 27.0 - 33.0 pg [facility] Mean Corpuscular HGB Conc 34.7 31.0 - 36.0 g/dl [facility] Red Cell Distribution Width 12.9 11.0 - 16.0 % [facility] Platelet Count 186 160 - 400 X10*3/uL [facility] Mean Platelet Volume 9.4 9.4 - 12.4 fL [facility] Neutrophils Percent Auto 80.1(H) 45 - 73 % [facility] Imm Gran Pct Auto 0.3 0.0 - 0.4 % [facility] Lymphocytes Percent Auto 7.8(L) 20 - 40 % [facility] Monocytes Percent Auto 9.5 2 - 11 % [facility] Eosinophils Percent Auto 1.8 0 - 4 % [facility] Basophils Percent Auto 0.5 0 - 2 % [facility] NRBC Pct Auto 0.0 0.0 - 0.2 /100WBC [facility] Neutrophils Absolute Auto 5.2 2.0 - 8.3 x10*3/uL [facility] Imm Gran Abs Auto 0.02 0.00 - 0.03 X10*3/uL [facility] Lymphocytes Absolute Auto 0.5(L) 1.2 - 4.9 X10*3/uL [facility] Monocytes Absolute Auto 0.6 0.1 - 1.2 X10*3/uL [facility] Eosinophils Absolute Auto 0.1 0.0 - 0.4 X10*3/uL [facility] Basophils Absolute Auto 0.0 0.0 - 0.2 X10*3/uL [facility] NRBC Abs Auto 0.000 0.0 - 0.012 X10*3/uL [facility] 07/04/2025 10:0 7 AM EDT 07/04/2025 11:47 AM EDT us Generic External Data Provider LAB BLOOD ORDERAB LES Final Result [facility] [address] [place] [phone] * Methylmalonic Acid (07/04/2025 10:07 AM EDT) Methylmalonic Acid 225 55 - 335 nmol/L [facility] Comment: Serum methylmalonic acid (MMA) [...] outcomes,such as neural tube defects and intrauterine growthrestriction.[employer] utilized Multi-Modal Decomposition(MMD) analysis to establish first and second trimester-specific MMA reference intervals in , as givenbelow:MMA, First trimester (<13 wks gestation): 58-167 nmol/LMMA, Second trimester (13-23 wks gestation):63-241 nmol/LThis test was developed and its analytical performancecharacteristics have been determined by [employer]. It has not been cleared or approved by theFDA. This assay has been validated pursuant to the CLIAregulations and is used for clinical purposes.THIS TEST WAS PERFORMED AT:[email or web address]/[email or web address] [place] [email or web address] RANDHAWA MD,PHD Blood Venous blood specimen / Unknown 07/04/2025 10:07 AM EDT 07/04/2025 11:47 AM EDT us Marilee Cordero SERVICE ATTENDANT LAB BLOOD ORDERABLES Final Res ult Performing Organization Address [facility] Co de Phone Number [facility] [address] [place] [phone] * (ABNORMAL) Sed Rate by Modified Wilbur (07/04/2025 10:07 AM EDT) Erythrocyte Sedimentation Rate 28(H) 0 - 15 MM/HR [facility] Comment:Patients with polycy themia and many hemoglobin abnormalitiesmay have depressed sed rates whereas patients with anemiamay have elevated sed rates. 07/04/2025 10:0 7 AM EDT 07/04/2025 11:47 AM EDT us Generic External Data Provider LAB BLOOD ORDERAB LES Final Result Performing Organization Address [facility] Co de Phone Number [facility] [address] [place] [phone] * C-reactive Protein (07/04/2025 10:07 AM EDT) C Reactive Protein 0.10 < or = 0.50 mg/dL [facility] 07/04/2025 10:0 7 AM EDT 07/04/2025 11:47 AM EDT us Generic External Data Provider LAB BLOOD ORDERAB LES Final Result Performing Organization Address City/[facility]/ZIP Co de Phone Number [facility] [address] [place] [phone] * (ABNORMAL) Lipid Panel, Standard (07/04/2025 10:07 AM EDT) Triglycerides 129 <150 mg/dL [facility] Comment:Desirable Triglyceri de: less than 150 mg/dLBorderline High Triglyceride 150-199 mg/dLHigh Triglyceride: 200-499 mg/dLVery High Triglyceride: greater than or equal to 5OO mg/dL Cholesterol 158 <200 mg/dL [facility] Comment:Desirable Cholestero l: less than 200 mg/dLBorderline High Cholesterol: 200-239 mg/dLHigh Cholesterol: greater than 239 mg/dL LDL Cholesterol Calculated 104(H) <100 mg/dL [facility] Comment:Desirable LDL: less than 100 mg/dLNear Optimal/Above Optimal LDL: 110- 129 mg/dLBorderline High LDL: 130-159 mg/dLHigh LDL: 160-189 mg/dLVery High LDL: greater than or equal to 190 mg/dL HDL Cholesterol 29(L) >40 mg/dL [facility] Comment:Desirable HDL: great er than 40 mg/dL Note: This HDL assay may give artificially low results in patients with liver disease. Blood Venous blood specimen / Unknown 07/04/2025 10:07 AM EDT 07/04/2025 11:47 AM EDT us Marilee Cordero SERVICE ATTENDANT LAB BLOOD ORDERABLES Final Res ult [facility] [address] [place] [address] [phone] * (ABNORMAL) Comprehensive Metabolic Panel (07/04/2025 10:07 AM EDT) Sodium 143 135 - 145 mmol/L [facility] Potassium 4.6 3.3 - 5.1 mmol/L [facility] Chloride 109(H) 96 - 108 mmol/L [facility] Carbon Dioxide 28 22 - 29 mmol/L [facility] Anion Gap 11(L) 12 - 20 [facility] Urea Nitrogen (BUN) 23(H) 9 - 16 mg/dL [facility] Creatinine, Serum 0.96 0.5 - 1.4 mg/dL [facility] Estimated Glomerular Filt Rate >60 [facility] Comment:Chronic Kidney Disea se: Estimated GFR < 60 mL/min/1.94l0Twhtdc Kidney Disease: Estimated GFR < 15 mL/min/1.73m2 Glucose 135(H) 60 - 115 mg/dL [facility] Calcium 9.2 8.4 - 10.2 mg/dL [facility] Bilirubin, Total 0.8 0.0 - 1.0 mg/dL [facility] Aspartate Amino Transferase 25 5 - 37 U/L [facility] Alanine Aminotransferase 27 0 - 40 U/L [facility] Total Protein 6.4(L) 6.5 - 8.0 g/dL [facility] Albumin Level 3.8 3.5 - 5.0 g/dL [facility] Alkaline Phosphatase 60 39 - 117 U/L [facility] 07/04/2025 10:0 7 AM EDT 07/04/2025 11:47 AM EDT Generic External Data Provider LAB BLOOD ORDERAB LES Final Result [facility] [address] [place] [phone] * (ABNORMAL) POCT A1c (06/26/2025 1:35 PM EDT) Hemoglobin A1C 10.8(A) 4.0 - 5.7 % QC Media Lot # [id number] Lot# Expiration Date Blood 06/26/2025 1:35 PM EDT Marilee OTERO POINT OF CARE TEST ENTER/EDIT ORDERABLES Final Result * Cytopath-cell enhanced (04/28/2025 3:00 PM EDT) 04/28/2025 3:00 PM EDT 04/29/2025 8:40 AM EDT Narrative [facility] - 04/29/2025 1:59 PM EDT ----- ------- Name: Joesph Saldana Age/Sex: 54/M : 1970 Unit#: [id number] Attend Dr: Malvin Cramer MD Re04/28/25 Status: [facility] Disch: ----- ------- SPEC : [id number] RECD: 04/29/25 STATUS: JANET FLORENCE NUM: [id number] JUDITH: 04/28/25-1500 [facility] DR: Malvin Cramer MD ENTERED: 04/29/25 SP TYPE: Cytology OT DR: Marilee Cordero SERVICE ATTENDANT ORDERED: Cyto-enhanced Diagnosis Urine: Negative for high-grade [...] developed and their performance characteristics determined by [facility]. They have not been cleared or approved by the U.S. Food and Drug Administration (FDA). However, the FDA has determined that such clearance or approval is not necessary. This laboratory is certified under the Clinical Laboratory Improvement Amendments of 1988 (CLIA) as qualified to perform high complexity clinical laboratory testing. Copies To: Malvin Cramer MD [facility] Services [address] [place] [address] [address] [place], [place] [phone] [email or web address] Marilee Cordero [address] [place] [address] CONTINUED ON NEXT PAGE ----- ------- Name: LesJoesph Gonzalez Age/Sex: 54/M : 1970 Unit#: [id number] Attend Dr: Malvni Cramer MD Re04/28/25 Status: DEP REF Location: .LAB Disch: ----- ------- SPEC : [id number] RECD: 04/29/25 STATUS: JANET POWELL NUM: [id number] JUDITH: 04/28/25-1499 [facility] DR: Malvin Cramer MD ENTERED: 04/29/25 SP TYPE: Cytology OTHR : Marilee Cordero ORDERED: Cyto-enhanced ----- ------- Signed (signature on file) Bradly See MD 04/29/25 1359 ----- ------- END OF REPORT us Generic External Data Provider LAB CYTOLOGY YAZ JUAREZ Final Result [facility] [address] [place] [phone] * (ABNORMAL) Urinalysis Complete (04/28/2025 10:10 AM EDT) Color Urine Yellow [facility] Appearance Urine Clear [facility] PH 5.5 5.0 - 9.0 [facility] Glucose Urine UA >=1000(A) Negative mg/dL [facility] Urine Blood Small (1+)(A) Negative [facility] Specific [place] - Urine 1.020 1.005 - 1.025 [facility] Urine Protein 300 (3+)(A) Neg-Trace mg/dL [facility] Urine Ketones Negative Negative mg/dL [facility] Nitrite Urine Negative Negative [facility] Leukocyte Esterase Urine Negative Negative [facility] RBC Urine 3-5(A) 0 - 2 /HPF [facility] Urine WBC 0-5 0 - 5 /HPF [facility] Urine Squamous Epithelial Cell 0-2 0 - 2 /HPF [facility] Urine Bacteria None Seen None Seen [facility] Hyaline Casts, Urine 3-5 0 - 2 /LPF [facility] GRANULAR CASTS (#/HPF) IN URINE Present [facility] Urine (Urine, Random) 04/28/2025 10:10 AM EDT 04/28/2025 5:57 PM EDT us Marilee Cordero [facility] URINE ORDERABLES Final Res ult [facility] [address] [place] [phone] * (ABNORMAL) POCT Urinalysis (04/28/2025 9:45 [...] 93,025 Urine 04/28/2025 9:45 AM EDT Marilee [facility] POINT OF CARE TEST ENTER/EDIT ORDERABLES Final Result * (ABNORMAL) POCT Glucose (04/28/2025 9:32 AM EDT) Pathologist [facility] Glucose Blood, POC 384(A) 60 - 200 mg/dL Blood Capillary blood specimen / Unknown 04/28/2025 9:32 AM EDT Marilee [facility] POINT OF CARE TEST ENTER/EDIT ORDERABLES Final Result * Hepatitis Panel, General (02/26/2025 7:32 AM EDT) Hepatitis A IgM Nonreactive Nonreactive [facility] Comment:IgM antibodies to GIBSON V not detected; does not exclude earlyacute or recovered HAV infection. ~Hepatitis B Surface Antibody NONREACTIVE Nonreactive [facility] Comment:Nonreactive: < 8.00 mIU/mL Hepatitis B Core Antibody Nonreactive Nonreactive [facility] Hepatitis C Antibody Nonreactive Nonreactive [facility] Comment:Antibodies to HCV no t detected; does not exclude early acuteHCV infection. Hepatitis B Surface Ag Negative Negative [facility] 02/26/2025 7:32 AM EDT 02/26/2025 7:32 AM EDT us Generic External Data Provider LAB BLOOD ORDERAB LES Final Result Performing Organization Address [facility] Co de Phone Number [facility] [address] [place] [phone] * (ABNORMAL) Albumin, Random Urine W/Creatinine (12/25/2023 9:50 AM EST) Creatinine, Urine 162.10 mg/dL [facility] Microalbumin Urine >2,000.0 mg/L [facility] Microalbum Creatinine Ratio Ur 1,233.8(H ) <30 ug/mg cr [facility] Comment:Albumin/Creatinine R atio Reference Ranges: Normal: < 30 ug/mg creatinine Microalbuminuria: 30 - 300 ug/mg creatinineClinical Albuminuria: > 300 ug/mg creatinine Urine 12/25/2023 9:50 AM EST 12/25/2023 2:38 PM EST us Marilee Cordero SERVICE ATTENDANT LAB URINE ORDERABLES Final Res ult Performing Organization Address [facility] Co de Phone Number [facility] [address] [place] [phone] * HIV-1/2 Antigen and Antibodies, Fourth Generation, with Reflexes (09/13/2023 7:53 AM EST) HIV AB/AG Nonreactive Nonreactive [facility] Comment:HIV-1 p24 Ag and/or HIV-1/HIV-2 Ab not detected.A test result that is nonreactive does not exclude thepossibility of exposure to or infection with HIV-1 and/orHIV-2. Nonreactive results in this assay for individualswith prior exposure to HIV-1 and/or HIV-2 may be due toantigen and antibody levels that are below the limit ofdetection of this assay.The [employer] HIV Ag/Ab Combo assay result andsupplemental assay results should be interpreted inconjunction with the patient's clinical presentation,history and other laboratory results. If the results areinconsistent with clinical evidence, additional testing issuggested to confirm the result. Blood Venous blood specimen / Unknown 09/13/2023 7:53 AM EST 09/13/2023 7:53 AM EST Marilee Cordero [facility] BLOOD ORDERABLES Final Res ult [facility] [address] [place] [phone] from Last 3 Months or Most Recently Relevant to Health Maintenance Insurance [facility] - [facility]SN PARTIAL (MEDICAID) Care Teams Baker Apprentice Relationship Specialty Start Date End Date Marilee Cordero FNP [address] [place] [address] PCP - General Family Medicine 03/23/23 Cristo Garcia MD [address] [place] [address] [address] [place] [address] Rheumatology 09/01/24 Yoselyn Lyons [address] [place] [address] Ophthalmology 09/01/24 Balbir Don 22 [facility] [address] [place] [address] Sleep Medicine 09/01/24 Lindsay Nur PharmD [address] [place] [address] Pharmacist Pharmacy 05/29/25 Meño Butcher MD [address] [place] [address] 3rd [place] [address] Cardiology 07/06/25 Dr. Ramirez [address] [place] [phone] Nephrology 09/01/24
--- OUTSIDE RECORDS SUMMARY | 2025-07-15 16:14 | XMS_ITS | Encounter Summary ---
Author Organization [employer] Address [address] [facility] [address] [place] [address] Care Team Providers Care Tail End Rider Name Role Phone Marilee Cordero POTATO INSPECTOR Primary Care Provider [phone] Cristo Garcia MD Unavailable Doris Candelario Unavailable [phone] Yoselyn Lyons Unavailable Unavailable Balbir Don Unavailable Lindsay NurD Unavailable [phone] Meño Butcher MD Unavailable [phone] Encounter Details Date Type Department Care Team (Late st Contact Info) Description 08/11/2023 Abstract [facility] [address] [place], [place] [phone] Gavino Lacey, DIANA [address] [place], [place] [phone] Social History Tobacco Use Types Packs/Day Years [...] Description 08/14/2025 1:30 PM EDT Medication Management [facility] [address] [place] [address] Lindsay Nur PharmD [address] [place] [address] documented as of this encounter Visit Diagnoses Not on filedocumented in this encounter Additional Health Concerns Assessment Noted Time PHQ-9 Depression Total Score: 1 10/17/20 22 10:05 AM EST documented as of this encounter Care Teams Tail End Rider Relationship Specialty Start Date End Date Marilee Cordero FNP [address] [place] [address] PCP - General Family Medicine 03/23/23 Cristo Garcia MD [address] [place] [address] [place] [phone] Rheumatology 09/01/24 Doris Candelario [address] [place] [address] Cardiology 09/01/24 07/05/25 Yoselyn Lyons [address] [place] [address] Ophthalmology 09/01/24 Balbir Don 22 [facility] [address] [place] [address] Sleep Medicine 09/01/24 Lindsay Nur PharmD [address] [place] [address] Pharmacist Pharmacy 05/29/25 Meño Butcher MD [address] [place] [address] 3rd [place] [address] Cardiology 07/06/25 Dr. Ramirez [address] [facility] [address] [place] [phone] Nephrology 09/01/24 [facility] 03/18/25 05/04/25 documented as of this encounter
--- OUTSIDE RECORDS SUMMARY | 2025-07-15 16:15 | XMS_ITS | Clinical Summary ---
Author Organization [facility] Address [address] [address] Phone Care Team Providers Care Head Machine Feeder Name Role Phone Marilee Cordero BRANDEN Primary Care Provider [phone] Allergies No known active allergies Medications amLODIPine [...] Followed by [facility] - Dr. Maturostrakul Jardiance 10mg daily Congestive heart failure 11/26/2023 Overview (04/03/2024): Following with [facility] Jul 2023: Nuclear stress test: Negative ECG portion of the stress test. Myocardial perfusion imaging is normal with no evidence or fixed or reversible perfusion defects. Moderately reduced global LV function? with resting left ventricular EF of 33%, and post stress LVEF 36%. LV size moderately dilated. No evidence of transient ischemic dilation. Hospitalization for CHF exacerbation: Oct 2023 at [facility] Last Assessment & Plan: - Reviewed [...] Psoriatic arthritis 06/04/2012 Overview (03/26/2025): Followed by [facility] Rheum - Dr. Garcia Med therapy: DMARD, Derik Previous tx: methotrexate and Enbrel (hx of failed Humira tx in Rheum note 02/04/21). Plan to hold methotrexate with hx cardiac conditions Obstructive sleep apnea syndrome 06/04/2012 Overview (03/26/2025): Following with [facility] - Dr. Balbir Don Cont w/ [...] to 49 Years) Discontinued 06/28/2018, 09/30/2008 Insurance [employer] [facility] ([id number]) [employer] [facility] ([id number]) Care Teams Head Machine Feeder Relationship Specialty Start Date End Date Marilee Cordero FNP [address] [place] [address] PCP - General 01/08/24
--- OUTSIDE RECORDS SUMMARY | 2025-07-15 16:15 | XMS_ITS | Encounter Summary ---
Author Organization [employer] Address [address] [place] [address] Care Team Providers Care Clother In Name Role Phone Marilee Crodero Primary Care Provider [phone] Cristo Garcia MD Unavailable Yoselyn Lyons Unavailable Unavailable Balbir Don Unavailable Lindsay Nur PharmD Unavailable [phone] Meño Butcher MD Unavailable Reason for Visit * Reason Onset Date Comments Results 07/08/2025 Encounter Details Date Type Department Care Team (Latest Contact Info) Description 07/08/2025 Results Follow-Up [facility] [address] [place], [place] [id number] Marilee Cordero FNP [address] [place] [address] Lipid Panel, Standard, Vitamin B12/Folate, Serum Panel, Methylmalonic Acid Social History Tobacco Use Types Packs/Day Years [...] the past 12 months, has t he [employer], gas, oil or water company threatened to [...] encounter Miscellaneous Notes * Telephone Encounter - Michelle Conklin RN - 07/14/2025 2:24 PM EDT TC placed to pt via [employer] 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 No answer, LVM to call office back and ask to speak to the nurses. ----- Message from Marilee Cordero sent at 07/14/2025 9:05 AM EDT ----- Please call to review labs: LDL level 104, goal less than 70 with his hx of diabetes. Please confirm adherence to statin nightly. Looks like last time I sent in refill was on 02/09/24, so please queue refill if needed. VitB12 levels were on the low side of normal. I am not sure if insurance would cover the cost of the Vit B12 injections, but if he would like to proceed, we can schedule a nurse visit for Vit B12 injections. Thanks! ----- Message ----- From: Interface, Lab Results In Sent: 07/04/2025 12:08 PM EDT To: BRANDEN Patel documented in this encounter Plan of Treatment Upcoming Encounters Date Type Department Care Team (Late st Contact Info) Description 08/14/2025 1:30 PM EDT Medication Management [facility] [address] [place] [address] Lindsay Nur PharmD [address] [place] [address] documented as of this encounter Visit Diagnoses Not on filedocumented in this encounter Additional Health Concerns Assessment Noted Time PHQ-9 Depression Total Score: 13 025 8:59 AM EDT documented as of this encounter Care Teams Clother In Relationship Specialty Start Date End Date Marilee Cordero FNP [address] [place] [address] PCP - General Family Medicine 03/23/23 Cristo Garcia MD [address] [place] [address] [address] [place] [address] Rheumatology 09/01/24 Yoselyn Lyons [address] [place] [address] Ophthalmology 09/01/24 Balbir Don [address] [facility] [address] [place] [address] Sleep Medicine 09/01/24 Lindsay Nur, Charisse [address] [place] [address] Pharmacist Pharmacy 05/29/25 Meño Butcher MD [address] [place] [address] 3rd [place] [address] Cardiology 07/06/25 Dr. Ramirez 100 [facility] [address] [place] [address] Nephrology 09/01/24 documented as of this encounter
--- OUTSIDE RECORDS SUMMARY | 2025-07-15 16:15 | XMS_ITS | Clinical Summary ---
Author Organization [facility] [place] [address] Phone Care Team Providers Care Workers Compensation Specialist Name Role Phone Physician, Pcp Unknown Primary [...] - 06/07/2025 2:36 PM EDT Hospital Encounter [facility] [address] [place] [address] Bayron Hester MD Shapiro, Benjamin, [...] (hyper tension) DM2 (diabetes mellitus, type 2) ([facility] V24, [facility] V28) 06/04/2012 DX:DM2 (diabetes mellitus, t ype 2) ([facility] Obstructive sleep apnea 06/04/2012 DX:Obstr uctive sleep apnea Psoriatic arthritis ([facility] V24, [facility] V28) 06/04/2012 DX:Psoriatic arthritis ([facility]) Hyperlipidemia 06/04/2012 DX:Hyperlipidemi a; COMMENT: IMO update [...] Heart attack Other cousins with fa charlotte PA's 40's Asthma Sister Relation Name Status Comments [...] of4 resultswithin the time period is included. [facility] Glucose POCT 271(H) 70 - 100 mg/dL 06/07/2025 11:[address] [facility] Blood Capillary blood specimen / Unknown 06/07/2025 11:44 AM EDT 06/07/2025 11:45 AM EDT Corey Willingham MD LAB POINT O F CARE TEST DOCKED DEVICE UNSOLICITED RESULTS Final Result [facility] [address] [place] [address], * Troponin I high sensitivity (06/07/2025 5:51 AM EDT) Only the most recent of4 resultswithin the time period is included. [facility] High Sensitivity Troponin I 38 <=79 ng/L LAB CHEMISTRY METHOD 06/07/2025 6:[address] [facility] Blood Venous blood specimen / Unknown Venipuncture / Unknown 06/07/2025 5:51 AM EDT 06/07/2025 6:[address] [facility] - 06/07/2025 6:58 AM EDT High levels of biotin in samples may falsely decrease hsTroponin values. Use caution when interpreting hsTroponin results in patients taking biotin who exhibit renal impairment (eGFR <60) or in patients taking more than 20 mg/day of biotin. us Hyacinth DORSEY LAB BLOOD ORDERABLES Final R esult [facility] [address] [place] [address], [place] [phone] * (ABNORMAL) Complete blood count (06/07/2025 5:51 AM EDT) WBC 5.7 4.8 - 10.8 K/mcL LAB HEMETOLOGY METHOD 06/07/2025 8:00 AM [facility] RBC 5.00 4.50 - 5.50 M/mcL LAB HEMETOLOGY METHOD 06/07/2025 8:00 AM [facility] Hemoglobin 13.6 13.5 - 17.5 g/dL LAB HEMETOLOGY METHOD 06/07/2025 8:00 AM [facility] Hematocrit 41.7(L) 42.0 - 54.0 % LAB HEMETOLOGY METHOD 06/07/2025 8:00 AM [facility] MCV 84.2 79.0 - 98.0 FL LAB HEMETOLOGY METHOD 06/07/2025 8:00 AM [facility] MCH 27.5 27.0 - 32.0 pcg LAB HEMETOLOGY METHOD 06/07/2025 8:00 AM [facility] MCHC 32.6 32.0 - 37.0 g/dL LAB HEMETOLOGY METHOD 06/07/2025 8:00 AM [facility] RDW 13.6 11.0 - 15.0 % LAB HEMETOLOGY METHOD 06/07/2025 8:00 AM [facility] Platelets 243 130 - 400 K/mcL LAB HEMETOLOGY METHOD 06/07/2025 8:00 AM [facility] MPV 9.7 7.0 - 11.0 FL LAB HEMETOLOGY METHOD 06/07/2025 8:[address] [facility] NRBC 0.0 <1.0 % LAB HEMETOLOGY METHOD 06/07/2025 8:[address] [facility] NRBC Absolute 0.00 <0.10 K/mcL LAB HEMETOLOGY METHOD 06/07/2025 8:[address] [facility] Blood Venous blood specimen / Unknown Venipuncture / Unknown 06/07/2025 5:51 AM EDT 06/07/2025 6:23 AM EDT Hyacinth DORSEY LAB BLOOD ORDERABLES Final R esult Performing Organization Address [facility]/ZIP Co de Phone Number [facility] [address] [place] [address], [place] [phone] * (ABNORMAL) Magnesium (06/07/2025 5:51 AM EDT) Magnesium 2.7(H) 1.9 - 2.6 mg/dL LAB CHEMISTRY METHOD 06/07/2025 6:[address] [facility] Blood Venous blood specimen / Unknown Venipuncture / Unknown 06/07/2025 5:51 AM EDT 06/07/2025 6:23 AM EDT Hyacinth DORSEY LAB BLOOD ORDERABLES Final R esult Performing Organization Address City/[facility]/ZIP Co de Phone Number [facility] [address] [place] [address], [place] [phone] * (ABNORMAL) Basic metabolic panel (06/07/2025 5:51 AM EDT) Only the most recent of2 resultswithin the time period is included. Sodium 139 133 - 145 mmol/L LAB CHEMISTRY METHOD 06/07/2025 6:[address] [facility] Potassium 3.6 3.5 - 5.5 mmol/L LAB CHEMISTRY METHOD 06/07/2025 6:58 AM [facility] Chloride 99 96 - 110 mmol/L LAB CHEMISTRY METHOD 06/07/2025 6:58 AM [facility] CO2 35(H) 21 - 32 mmol/L LAB CHEMISTRY METHOD 06/07/2025 6:58 AM [facility] Anion Gap 5 3 - 11 LAB CHEMISTRY METHOD 06/07/2025 6:58 AM [facility] Glucose 200(H) 70 - 100 mg/dL LAB CHEMISTRY METHOD 06/07/2025 6:58 AM [facility] BUN 29(H) 5 - 25 mg/dL LAB CHEMISTRY METHOD 06/07/2025 6:58 AM [facility] Creatinine 1.20 0.70 - 1.30 mg/dL LAB CHEMISTRY METHOD 06/07/2025 6:58 AM [facility] eGFR 71 >=60 mL/min/1. 73m2 LAB CHEMISTRY METHOD 06/07/2025 6:58 AM [facility] Comment:Calculation based on the Chronic Kidney Disease Epidemiology Collaboration (CKD-EPI) equation refit without adjustment for race. BUN/Creatinine Ratio 24.2 LAB CHEMISTRY METHOD 06/07/2025 6:58 AM [facility] Calcium 9.2 8.5 - 10.5 mg/dL LAB CHEMISTRY METHOD 06/07/2025 6:58 AM [facility] Blood Venous blood specimen / Unknown Venipuncture / Unknown 06/07/2025 5:51 AM EDT 06/07/2025 6:23 AM EDT us Hyacinth DORSEY LAB BLOOD ORDERABLES Final R esult [facility] [address] [place] [address], [place] [phone] * SST tube (06/06/2025 7:06 PM EDT) Extra Tube Hold for add-ons. 06/06/2025 9:[address] [facility] Comment:Auto resulted. Blood Venous blood specimen / Unknown 06/06/2025 7:06 PM EDT 06/06/2025 7:26 PM EDT us Danny Larose DO LAB BLOOD ORDERABLES Final R esult Performing Organization Address City/[facility]/ZIP Co de Phone Number [facility] [address] [place] [address], [place] [phone] * Light blue tube (06/06/2025 7:06 PM EDT) Pathologist [facility] Extra Tube Hold for add-ons. 06/06/2025 9:[address] [facility] Comment:Auto resulted. Blood Venous blood specimen / Unknown 06/06/2025 7:06 PM EDT 06/06/2025 7:26 PM EDT us Danny Larose DO LAB BLOOD ORDERABLES Final R esult Performing Organization Address City/[facility]/ZIP Co de Phone Number [facility] [address] [place] [address], [place] [phone] * Respiratory virus panel molecular study (06/06/2025 3:52 PM EDT) Pathologist [facility] Adenovirus Detection by PCR Not Detected Not Detected LAB MICROBIOLOGY METHOD 06/06/2025 5:[address] [facility] Influenza A PCR Not Detected Not Detected LAB MICROBIOLOGY METHOD 06/06/2025 5:[address] [facility] Influenza B PCR Not Detected Not Detected LAB MICROBIOLOGY METHOD 06/06/2025 5:[address] [facility] Coronavirus 229E Not Detected Not Detected LAB MICROBIOLOGY METHOD 06/06/2025 5:[address] [facility] Coronavirus HKU1 Not Detected Not Detected LAB MICROBIOLOGY METHOD 06/06/2025 5:[address] [facility] Coronavirus OC43 Not Detected Not Detected LAB MICROBIOLOGY METHOD 06/06/2025 5:[address] [facility] Coronavirus NL63 Not Detected Not Detected LAB MICROBIOLOGY METHOD 06/06/2025 5:[address] [facility] Parainfluenza Virus 1 Not Detected Not Detected LAB MICROBIOLOGY METHOD 06/06/2025 5:[address] [facility] Parainfluenza Virus 2 Not Detected Not Detected LAB MICROBIOLOGY METHOD 06/06/2025 5:[address] [facility] Parainfluenza Virus 3 Not Detected Not Detected LAB MICROBIOLOGY METHOD 06/06/2025 5:[address] [facility] Parainfluenza Virus 4 Not Detected Not Detected LAB MICROBIOLOGY METHOD 06/06/2025 5:[address] [facility] RSV PCR Not Detected Not Detected LAB MICROBIOLOGY METHOD 06/06/2025 5:[address] [facility] Human Metapneumovirus A and B Not Detected Not Detected LAB MICROBIOLOGY METHOD 06/06/2025 5:[address] [facility] Rhinovirus/Entero virus Not Detected Not Detected LAB MICROBIOLOGY METHOD 06/06/2025 5:[address] [facility] Bordetella pertussis Not Detected Not Detected LAB MICROBIOLOGY METHOD 06/06/2025 5:[address] [facility] Bordetella parapertussis Not Detected Not Detected LAB MICROBIOLOGY METHOD 06/06/2025 5:[address] [facility] Mycoplasma pneumo by PCR Not Detected Not Detected LAB MICROBIOLOGY METHOD 06/06/2025 5:[address] [facility] Chlamydia pneumoniae Not Detected Not Detected LAB MICROBIOLOGY METHOD 06/06/2025 5:[address] [facility] SARS COV-2 Not Detected Not Detected LAB MICROBIOLOGY METHOD 06/06/2025 5:[address] [facility] Swab Both anterior nares / Unknown Non-blood Collection / Unknown 06/06/2025 3:52 PM EDT 06/06/2025 4:[address] [facility] - 06/06/2025 5:19 PM EDT Testing was performed using the [employer] Respiratory Pathogen PCR Assay. All results must [...] MICROBIOLOGY - GENERAL O RDERABLES Final Result [facility] [address] [place] [address], [place] [phone] * CT Angio Chest wo and/or w [...] Signed Date: 06/06/2025 15:19 ET Workstation ID: [id number] Transcribed By: Self Edit Transcribed Date: 06/06/2025 [...] Signed Date: 06/06/2025 15:19 ET Workstation ID: [id number] Transcribed By: Self Edit Transcribed Date: 06/06/2025 15:12 ET Bayron Hester MD IMG CT PROCEDURES Final Res ult * D-dimer, quantitative (06/06/2025 11:48 AM EDT) D-Dimer, Quant (D-DU) 191 <=230 ng/mL DDU LAB COAGULATION METHOD 06/06/2025 12:[address] [facility] Blood Venous blood specimen / Unknown Venipuncture / Unknown 06/06/2025 11:48 AM EDT 06/06/2025 12:[address] [facility] - 06/06/2025 12:27 PM EDT D-Dimer <230 ng/mL (D-Dimer units) is the threshold for exclusion of DVT/PE. D-Dimer may be elevated in: Critically ill, severely infected, trauma patients, DIC, acute CVA, acute PA, unstable angina, AF, old age, , and smoking. D-Dimer may be decreased with: Initiation of heparin therapy and oral anticoagulants. Bayron Hester MD LAB BLOOD ORDERABLES Final Result [facility] [address] [place] [address], [place] [phone] * XR Chest 1 View (06/06/2025 11:04 AM EDT) Anatomical Region Laterality Modality Body Radiographic Aleida ging 06/06/2025 11:0 7 AM EDT Impressions 06/06/2025 11:08 AM EDT No acute pulmonary disease. Pulmonary vascular congestion consistent with congestive heart failure has resolved since 02/15/2025. Cardiomegaly is stable. Code 28550 -------- FINAL REPORT -------- Dictated By: Ceasar Lopez Dictated Date: 06/06/2025 11:07 ET Assigned Physician: Ceasar Lopez Reviewed and Electronically Signed By: Ceasar Lopez Signed Date: 06/06/2025 11:08 ET Workstation ID: [id number] Transcribed By: Self Edit Transcribed Date: 06/06/2025 [...] has resolved since 02/15/2025. Cardiomegaly isstable. Code 07650 -------- FINAL REPORT -------- Dictated By: Ceasar Lopez Dictated Date: 06/06/2025 11:07 ET Assigned Physician: Ceasar Lopez Reviewed and Electronically Signed By: Ceasar Lopez Signed Date: 06/06/2025 11:08 ET Workstation ID: [id number] Transcribed By: Self Edit Transcribed Date: 06/06/2025 11:07 ET us Bayron Hester MD IMG XR PROCEDURES Final Res ult * ECG 12 lead (06/06/2025 10:54 AM EDT) Ventricular Rate ECG 65 BPM GEMUSE Atrial Rate 65 BPM GEMUSE P-R Interval 144 ms GEMUSE QRS Duration 78 ms GEMUSE Q-T Interval 438 ms GEMUSE QTc 455 ms GEMUSE P Wave Irene 26 degrees GEMUSE R Irene 4 degrees GEMUSE T Irene 116 degrees GEMUSE ECG Interpretation Normal sinus [...] LAB HEMETOLOGY METHOD 06/06/2025 10:[address] [facility] RBC 5.40 4.50 - 5.50 M/mcL LAB HEMETOLOGY METHOD 06/06/2025 10:[address] [facility] Hemoglobin 15.3 13.5 - 17.5 g/dL LAB HEMETOLOGY METHOD 06/06/2025 10:[address] [facility] Hematocrit 44.2 42.0 - 54.0 % LAB HEMETOLOGY METHOD 06/06/2025 10:[address] [facility] MCV 81.4 79.0 - 98.0 FL LAB HEMETOLOGY METHOD [facility]/06[facility]25 [facility] MCH 28.2 27.0 - 32.0 pcg LAB HEMETOLOGY METHOD 06/06/2025 10:[facility] MCHC 34.6 32.0 - 37.0 g/dL LAB HEMETOLOGY METHOD 06/06/2025 10:58 [facility] RDW 13.2 11.0 - 15.0 % LAB HEMETOLOGY METHOD 06/06/2025 10:58 AM [facility] Platelets 230 130 - 400 K/mcL LAB HEMETOLOGY METHOD 06/06/2025 10:58 AM [facility] MPV 9.7 7.0 - 11.0 FL LAB HEMETOLOGY METHOD 06/06/2025 10:58 AM [facility] NRBC 0.0 <1.0 % LAB HEMETOLOGY METHOD 06/06/2025 10:58 AM [facility] NRBC Absolute 0.00 <0.10 K/mcL LAB HEMETOLOGY METHOD 06/06/2025 10:58 AM [facility] Neutrophils Relative 80.0 % LAB HEMETOLOGY METHOD 06/06/2025 10:58 AM [facility] Lymphocytes Relative 10.3 % LAB HEMETOLOGY METHOD 06/06/2025 10:58 AM [facility] Monocytes Relative 7.7 % LAB HEMETOLOGY METHOD 06/06/2025 10:58 AM [facility] Eosinophils Relative 1.2 % LAB HEMETOLOGY METHOD 06/06/2025 10:58 AM [facility] Basophils Relative 0.4 % LAB HEMETOLOGY METHOD 06/06/2025 10:58 AM [facility] Immature Granulocytes Relative 0.4 % LAB HEMETOLOGY METHOD 06/06/2025 10:58 AM [facility] Neutrophils Absolute 5.54 1.50 - 7.00 K/mcL LAB HEMETOLOGY METHOD 06/06/2025 10:58 AM [facility] Lymphocytes Absolute 0.71(L) 1.00 - 5.00 K/mcL LAB HEMETOLOGY METHOD 06/06/2025 10:58 AM [facility] Monocytes Absolute 0.53 0.20 - 1.00 K/mcL LAB HEMETOLOGY METHOD 06/06/2025 10:[address] [facility] Eosinophils Absolute 0.08 0.00 - 0.50 K/[facility] LAB HEMETOLOGY METHOD 06/06/2025 10:[address] [facility] Basophils Absolute 0.03 0.00 - 0.20 K/[facility] LAB HEMETOLOGY METHOD 06/06/2025 10:[address] [facility] Immature Granulocytes Absolute 0.03 0.00 - 0.03 K/[facility] LAB HEMETOLOGY METHOD 06/06/2025 10:[address] [facility] Blood Venous blood specimen / Unknown Venipuncture / Unknown 06/06/2025 10:42 AM EDT 06/06/2025 10:50 AM EDT Bayron Hester MD LAB BLOOD ORDERABLES Final Result Performing Organization Address City/[facility]/ZIP Co de Phone Number [facility] [address] [place] [address], [place] [phone] * B-type natriuretic peptide (06/06/2025 10:42 AM EDT) [facility] BNP 92 <=100 pcg/mL LAB CHEMISTRY METHOD 06/06/2025 11:[address] [facility] Blood Venous blood specimen / Unknown Venipuncture / Unknown 06/06/2025 10:42 AM EDT 06/06/2025 10:50 AM EDT Bayron Hester MD LAB BLOOD ORDERABLES Final Result [facility] [address] [place] [address], [place] [phone] * Serum albumin (06/06/2025 10:42 AM EDT) Pathologist [facility] Albumin 3.2 3.2 - 5.0 g/dL LAB CHEMISTRY METHOD 06/06/2025 2:[address] [facility] Blood Venous blood specimen / Unknown Venipuncture / Unknown 06/06/2025 10:42 AM EDT 06/06/2025 10:50 AM EDT Hyacinth DORSEY LAB BLOOD ORDERABLES Final R esult Performing Organization Address City/[facility]/ZIP Co de Phone Number [facility] [address] [place] [address], [place] [phone] * Hepatitis C antibody (02/16/2025 2:00 PM EDT) Hepatitis C Antibody Negative Negative LAB CHEMISTRY METHOD 02/16/2025 5:[address] [facility] Blood Venous blood specimen / Unknown Venipuncture / Unknown 02/16/2025 2:00 PM EDT 02/16/2025 2:05 PM EDT Ish David MD LAB BLOOD ORDERABLES Final Res ult Performing Organization Address [facility]/ZIP Co de Phone Number [facility] [address] [place] [address], [place] [phone] from Last 3 Months or Most Recently Relevant to Health Maintenance Insurance [facility] [employer] Advance Directives * Full [...] currently active code status orders. Care Teams Workers Compensation Specialist Relationship Specialty Start Date End Date Physician, Pcp Unknown PCP - General 05/01/25
--- OUTSIDE RECORDS SUMMARY | 2025-07-15 16:15 | XMS_ITS | Encounter Summary ---
Author Organization [employer] Address [address] [place] [address] [address] [place] [address] Care Team Providers Care Stitcher Feeder Name Role Phone Marilee Cordero Primary Care Provider [phone] Cristo Garcia MD Unavailable Doris Candelario Unavailable [phone] Yoselyn Lyons Unavailable Unavailable Balbir Don Unavailable Lindsay Nur PharmD Unavailable [phone] Meño Butcher MD Unavailable [phone] Reason for Referral * Consultation (Routine) - Closed Specialty Diagnoses / Procedures Referred By Contzena t Referred To Contact Nephrology Diagnoses Albuminuria Marilee Cordero FNP [address] [place] [address] Phone: tel: fax: Bayron Marshall MD [address] [facility] [address] [place] [address] Phone: tel: fax: Referral ID Status Reason Start Date Expiration Date V isits Requested Visits Authorized [id number] Closed Specialty Services Required 12/29/2023 12/28/2024 1 1 Encounter Details Date Type Department Care Team (Late st Contact Info) Description 12/29/2023 Orders Only [facility] [address] [place], [place] [phone] Marilee Cordero FNP [address] [place], [place] [phone] Albuminuria (Primary Dx) Social History Tobacco Use [...] Description 08/14/2025 1:30 PM EDT Medication Management [facility] [address] [place] [address] Lindsay Nur, PharmD [address] [place] [address] documented as of this encounter Procedures Procedure [...] documented as of this encounter Care Teams Stitcher Feeder Relationship Specialty Start Date End Date Marilee Cordero FNP [address] [place] [address] PCP - General Family Medicine 03/23/23 Cristo Garcia MD [address] [place] [address] Rheumatology 09/01/24 Doris Candelario [address] [place] [address] Cardiology 09/01/24 07/05/25 Yoselyn Lyons [address] [place] [address] Ophthalmology 09/01/24 Balbir Don [address] [facility] [address] [place] [address] Sleep Medicine 09/01/24 Lindsay Nur PharmD [address] [place] [address] Pharmacist Pharmacy 05/29/25 Meño Butcher MD [address] [place] [address] 3rd [place] [address] Cardiology 07/06/25 Dr. Ramirez 100 [facility] [address] [place] [address] Nephrology 09/01/24 Noman LAWRENCE 03/18/25 05/04/25 documented as of this encounter
== END 2025-07-15 12:54 | disposition home or self-care (01) ==
LOC: HO.HCS 12:07
PROVIDERS: PCP Registered Nurse; Visit Provider Internal Medicine
DX: I50.42 Chronic combined systolic (congestive) and diastolic (congestive) heart failure (principal); I25.10 Atherosclerotic heart disease of native coronary artery without angina pectoris
CPT/HCPCS: 99214

== ENCOUNTER → 2025-07-15 12:06 | Outpatient (BNVA) | payer OTHER, SELFPAY | PROVIDERS: PCP Registered Nurse; Visit Provider Internal Medicine | DX: I50.42 Chronic combined systolic (congestive) and diastolic (congestive) heart failure (principal); I25.10 Atherosclerotic heart disease of native coronary artery without angina pectoris | CPT/HCPCS: 99212 ==

== ENCOUNTER 2025-07-29 14:36 | Outpatient (AMB) | payer OTHER, SELFPAY ==
--- OUTSIDE RECORDS SUMMARY | 2018-07-03 09:45 | XMS_ITS | Continuity of Care Document ---
Author Organization [facility] vices Address [address] [place] [address] Phone Care Team Providers Care Pipe Stem Aligner Name Role Phone Unavailable Unavailable Unavailable Procedures Procedure Date Psychotherapy, 30 Minutes With Patient S Psych Dx Eval Psychotherapy, 30 Minutes With Patient A Advance Directives Directive Yes / No Effective Date File Name No Information Encounters Encounter Description Practice Location Reason(s) For Visit Diagnoses Date Provider Providers Copied on Encounter Psychotherap y, 30 Minutes With Patient [facility], [address] [place] [address], tel:[phone] [facility] Behavioral Health Individual Therapy (chief complaint) Cannabis use, unspecified, uncomplicatedC ocaine use, unspecified, uncomplicatedM ajor depressive disorder, recurrent, mildPost-traum atic stress disorder, unspecified Sep-0 8 No Information Psych Dx Eval [facility], [address] [place] [address], [facility], tel:[phone] [facility] Behavioral Health Initial Assessment (chief complaint) Major depressive disorder, recurrent, mildPost-traum atic stress disorder, unspecifiedCoc norman use, unspecified, uncomplicatedC annabis use, unspecified, uncomplicated May- 8 No Information Psychotherap y, 30 Minutes With Patient [facility], [address] [place] [address], tel:[phone] [facility] Behavioral Health depression (chief complaint) Major depressive disorder, recurrent, mildPost-traum atic stress disorder, unspecified May-2 8 No Information Family History Family Member Type Diagnosis Age At Onset No Information Payers Payer name Insurance type Covered democrat ID Authoriza tiluiz(s) BRII Alonso [id number] Social History Type Description Quantity Date Captured [...]
--- NOTE | 2025-07-29 14:41 | HO.NEPHOV_ITS ---
Vital Signs 07/29/25 14:42 Height 6 ft Weight 244 lb BMI 33.1 BP 138/78 Blood Pressure Location Lt brachial Position Sitting Pulse 81 Pulse Source Pulse Oximeter Pulse Oximetry (%) 85 L Oxygen Delivery Method Room Air Intake Visit Reasons: INP: Proteinuria Blacksmith Hammer Operator Required: Yes Blacksmith Hammer Operator Name: storm Murphy Accompanied by: Spouse Allergies No Known Allergies Allergy (Verified 07/29/25 14:46) Medication List - Last Reconciled 07/29/25 by Santo Brooks MD acetaminophen 650 mg PO TID PRN aspirin 81 mg PO DAILY atorvastatin 40 mg PO BEDTIME carvedilol 6.25 mg PO BID empagliflozin (Jardiance) 10 mg PO DAILY furosemide (Lasix) 80 mg PO BID ixekizumab (Taltz Autoinjector) 80 mg subcut Q4W metformin ER 500 mg PO BID sacubitril-valsartan 49-51 mg (Entresto) 1 tab PO BID spironolactone 25 mg PO DAILY tamsulosin 0.4 mg PO QPM HPI Comments Details: - The patient is a 55-year-old male presenting with proteinuria and hematuria. - Proteinuria: Urine protein level approximately 4,000 mg, - Urine is very foamy, - Hematuria detected in tests, no visible blood observed by patient. - Diabetes Mellitus: 20-year history, currently controlled. - Hypertension: Controlled. - History of nonischemic cardiomyopathy. - Sleep Apnea: Managed with CPAP for over 15 years. History of psoriatic arthritis. He was treated with methotrexate for a long time. Currently on Taltz [facility] Medical History (Updated 07/29/25 @ 15:13 by Santo Brooks MD) Dyspnea on minimal exertion Pulmonary hypertension Dyspnea on exhalation RAKAN (obstructive sleep apnea) CHF (congestive heart failure) Psoriasis Psoriatic arthritis Hypercholesteremia Lumbago with sciatica, right side Elev transaminase/LDH Neuropathy Diabetes Psoriasis Family History Father Diabetes HTN (hypertension) Mother Diabetes Social History Household Members: Spouse Housing: House Do you presently have visiting nurse or other home services: No Alcohol intake: never Patient Tobacco Use Status: Never used Tobacco e-Cigarette/Vaping Use: Never Used service: No Current occupational status: employed Current occupation: [employer] Review of Systems Const Denies fever(s) and Denies weight loss Card Denies chest pain Resp Denies cough and Denies hemoptysis GI Denies abdominal pain, Denies diarrhea and Denies nausea Musc Denies back pain Neuro Denies focal weakness Physical Exam Vital Signs: Last Vital Signs Pulse 81 07/29/25 14:42 BP 138/78 07/29/25 14:42 Pulse Ox 85 L 07/29/25 14:42 Oxygen Delivery Method Room Air 07/29/25 14:42 BMI result Body Mass Index 33.1 Const General: comfortable; No acute distress Orientation/consciousness: patient oriented x3 Eyes General: appearance normal, both eyes and all related structures Visual Pineda: normal visual pineda by confrontation Neck Neck: Yes supple and Yes no JVD Resp Effort & Inspection: normal respiratory effort and respiratory effort not decreased Cardio Palpation: no palpable S3 and no palpable S4 Heart sounds: no rubs GI Inspection: Yes normal to inspection Palpation (GI): Soft to palpation Percussion: Yes normal to percussion Auscultation: normal bowel sounds General: Yes no CVA tenderness Back/Spine/Pelvis Back: no CVA tenderness Skin General skin exam: no petechiae and no purpura Neuro General: patient oriented x3 and no focal motor deficits Extrem General: No clubbing and No edema Results Reviewed Nephrology Results: Hgb, (14.0-18.0) 13.7 g/dl L Δ 07/04/25 WBC, (4.8-10.8) 6.5 X10*3/uL 07/04/25 Plt Count, (160-400) 186 X10*3/uL 07/04/25 Sodium, (135-145) 143 mmol/L 07/04/25 Potassium, (3.3-5.1) 4.6 mmol/L Δ 07/04/25 Chloride, (96-108) 109 mmol/L H 07/04/25 Carbon Dioxide, (22-29) 28 mmol/L 07/04/25 BUN, (9-16) 23 mg/dL H 07/04/25 Creatinine, (0.5-1.4) 0.96 mg/dL 07/04/25 Calcium, (8.4-10.2) 9.2 mg/dL 07/04/25 Urine Protein, (Neg-Trace) 300 (3+) mg/dL H 04/28/25 Assessment & Plan Assessment & Plan (1) Proteinuria: Code(s): R80.9 - Proteinuria, unspecified Category: Medical (2) Hematuria: Code(s): R31.9 - Hematuria, unspecified Category: Medical (3) Psoriatic arthritis: Comment: Methotrexate - failed Enbrel - failed Humira - failed Taltz - effective but lost to follow up Code(s): L40.50 - Arthropathic psoriasis, unspecified Category: Medical (4) Acute on chronic heart failure with mildly reduced ejection fraction (HFmrEF, 41-49%): Code(s): I50.23 - Acute on chronic systolic (congestive) heart failure Category: Medical (5) RAKAN (obstructive sleep apnea): Comment: THIS GENTLEMAN DOES HAVE SYMPTOMS AND HISTORY C/W OBSTRUCTIVE SLEEP APNEA, WHICH WAS CONFIRMED BY POLYSOMNOGRAM STUDY IN 2017. HE HAS HISTORY OF USING CPAP FOR SOME YEARS IN THE PAST BUT STOPPED USING UTERUS AGO BECAUSE THE CPAP MACHINE IS TOO OLD. THIS UN TREATED SLEEP APNEA , MAY BE CONTRIBUTING TO HIS PULMONARY HYPERTENSION. Code(s): G47.33 - Obstructive sleep apnea (adult) (pediatric) Category: Medical Plan 54-year-old man with longstanding diabetes mellitus with nephrotic range proteinuria and essentially normal renal function. Joesph most likely has diabetic nephropathy. Nevertheless nondiabetic causes should be ruled out. He has had some hematuria with a negative urological workup. Serum complements were low. He might require a kidney biopsy to rule out nondiabetic causes. At the present time renal function is normal with a creatinine of 0.9 mg/dL. Plan Obtain serologies including serum electrophoresis serum complements hepatitis panel and and urine studies Maintain A1c less than 7% Optimize blood pressure Continue with ARB for renal protection along with SGLT2 inhibitor. Goal is to slow the progression of renal disease Continue to avoid nephrotoxic agents including NSAIDs. Once the baseline workup is completed returned to the office in the next few weeks and I will re-evaluate him for a kidney biopsy. Orders: Orders Creatinine Urine Today R31.9 - Hematuria, unspecified, R80.9 - Proteinuria, unspecified Immunofixation Pnl, Serum Today R31.9 - Hematuria, unspecified, R80.9 - Proteinuria, unspecified Hepatitis B Surface Antibody Today R31.9 - Hematuria, unspecified, R80.9 - Proteinuria, unspecified Complete Blood Count Auto Diff Today R31.9 - Hematuria, unspecified, R80.9 - Pr oteinuria, unspecified Comprehensive Met. Panel Today R31.9 - Hematuria, unspecified, R80.9 - Proteinuria, unspecified Total Protein Urine Random Today R31.9 - Hematuria, unspecified, R80.9 - Proteinuria, unspecified UA and rflx microscopic Today R31.9 - Hematuria, unspecified, R80.9 - Proteinuria, unspecified RAMESH Reflex Titer and Pattern Today R31.9 - Hematuria, unspecified, R80.9 - Proteinuria, unspecified Neutrophil Cytoplasma Ab Today R31.9 - Hematuria, unspecified, R80.9 - Proteinuria, unspecified Anti Glomerular Basement Memb Today R31.9 - Hematuria, unspecified, R80.9 - Proteinuria, unspecified Protein Electrophoresis, Serum Today R31.9 - Hematuria, unspecified, R80.9 - Proteinuria, unspecified Hepatitis B Surface Antigen Today R31.9 - Hematuria, unspecified, R80.9 - Proteinuria, unspecified Hepatitis B Core Antibody Today R31.9 - Hematuria, unspecified, R80.9 - Proteinuria, unspecified Coding Level of Care Code New Pt Level 4 (47869) Diagnoses Proteinuria R80.9 Hematuria R31.9 Psoriatic arthritis L40.50 Acute on chronic heart failure with mildly reduced ejection fraction (HFmrEF, 41-49%) I50.23 RAKAN (obstructive sleep apnea) G47.33 Time Spent (min) 45
[2025-07-29 14:42] VITALS: BP 138/78; PULSE 81; O2SAT 85; BMI 33.1
--- OUTSIDE RECORDS SUMMARY | 2025-07-29 15:58 | XMS_ITS | Encounter Summary ---
Author Organization [employer] Address [address] [facility] [address] [place] [address] Care Team Providers Care Cast Iron Drain Pipe Layer Name Role Phone Marilee Cordero OVERHEAD LINE WORKER Primary Care Provider [phone] Cristo Garcia MD Unavailable Doris Candelario Unavailable [phone] Yoselyn Lyons Unavailable Unavailable Balbir Don Unavailable Lindsay NurD Unavailable [phone] Meño Butcher MD Unavailable [phone] Encounter Details Date Type Department Care Team (Late st Contact Info) Description 08/11/2023 Abstract [facility] ADULT DENTAL [address] [place], [place] [id number] Gavino Lacey, DIANA [address] [place], [place] [id number] Social History Tobacco Use Types Packs/Day Years [...] Description 08/14/2025 1:30 PM EDT Medication Management [facility] MED & PEDS [address] [place] [address] Lindsay Nur PharmD [address] [place] [address] documented as of this encounter Visit Diagnoses Not on filedocumented in this encounter Additional Health Concerns Assessment Noted Time PHQ-9 Depression Total Score: 1 10/17/20 22 10:05 AM EST documented as of this encounter Care Teams Cast Iron Drain Pipe Layer Relationship Specialty Start Date End Date Marilee Cordero FNP [address] [place] [address] PCP - General Family Medicine 03/23/23 Cristo Garcia MD [address] [place] [address] [place] [id number] Rheumatology 09/01/24 Doris Candelario [address] [place] [address] Cardiology 09/01/24 07/05/25 Yoselyn Lyons [address] [place] [address] Ophthalmology 09/01/24 Balbir Don [address] [facility] [address] [place] [address] Sleep Medicine 09/01/24 Lindsay Nur PharmD [address] [place] [address] Pharmacist Pharmacy 05/29/25 Meño Butcher MD [address] [place] [address] [address]rd [place] [address] Cardiology 07/06/25 Dr. Ramirez 100 [facility] [address] [place] [address] Nephrology 09/01/24 [facility] 03/18/25 05/04/25 documented as of this encounter
--- OUTSIDE RECORDS SUMMARY | 2025-07-29 15:58 | XMS_ITS | Encounter Summary ---
Author Organization [employer] Address [address] [facility] [address]t [place] [address] Care Team Providers Care Aging Room Operator Name Role Phone Marilee Cordero DAM ATTENDANT Primary Care Provider [phone] Cristo Garcia MD Unavailable Doris Candelario Unavailable [phone] Yoselyn Lyons Unavailable Unavailable Balbir Don Unavailable Lindsay NurD Unavailable [phone] Meño Butcher MD Unavailable [phone] Reason for Visit * Reason Comments Med Refill Encounter Details Date Type Department Care Team (Late st Contact Info) Description 07/23/2023 Refill [facility] MEDICINE [address] [place] [address] Donavan Mcgee AGNP Social History Tobacco Use [...] Description 08/14/2025 1:30 PM EDT Medication Management [facility] MED & PEDS [address] [place] [address] Lindsay Nur PharmD [address] [place] [address] documented as of this encounter Visit Diagnoses Not on filedocumented in this encounter Additional Health Concerns Assessment Noted Time PHQ-9 Depression Total Score: 1 10/17/20 22 10:05 AM EST documented as of this encounter Care Teams Aging Room Operator Relationship Specialty Start Date End Date Marilee Cordero FNP [address] [place] [address] PCP - General Family Medicine 03/23/23 Cristo Garcia MD [address] [place] [address] Rheumatology 09/01/24 Doris Candelario [address] [place] [address] Cardiology 09/01/24 07/05/25 Yoselyn Lyons [address] [place] [address] Ophthalmology 09/01/24 Balbir Don [address] [facility] [address] [place] [address] Sleep Medicine 09/01/24 Lindsay Nur, PharmD [address] [place] [address] Pharmacist Pharmacy 05/29/25 Meño Butcher MD [address] [place] [address] 3rd [place] [address] Cardiology 07/06/25 Dr. Ramirez [address] [address] Nephrology 09/01/24 Noman LEWISA 03/18/25 05/04/25 documented as of this encounter
--- OUTSIDE RECORDS SUMMARY | 2025-07-29 15:58 | XMS_ITS | Clinical Summary ---
Author Organization [employer] Address [address] [place] [address] Care Team Providers Care Food Cooking Machine Operator Name Role Phone Marilee Cordero BRANDEN Primary Care Provider [phone] Cristo Garcia MD Unavailable Yoselyn Lyons Unavailable Unavailable Balbir Don Unavailable Lindsay Nur PharmD Unavailable [phone] Meño Buthcer MD Unavailable [phone] Allergies No known active allergies Medications Blood Pressure kit Use daily Active Blood Glucose Monitoring Suppl (FreeStyle [place] Lite) w/Device kit 1 each by Other [...] hyperglycemia, with long-term current use of insulin (HCC) Subcutaneous once daily use with lantus pen 100 each 3 3 Active gabapentin (Neurontin) 100 MG capsuleIndicati ons:Peripheral nerve disease TAKE 1 CAPSULE BY MOUTH EVERY EVENING (for nerve pain) 90 capsule 1 3 Active metFORMIN XR (Glucophage-XR) 500 MG 24 hr tabletIndicatio ns:Type 2 diabetes mellitus with hyperglycemia, with long-term current use of insulin (HCC) TAKE 1 TABLET BY MOUTH TWICE DAILY IN THE MORNING AND IN THE EVENING WITH MEALS 180 tablet 1 4 Active Lantus SoloStar 100 UNIT/ML penIndications: Type 2 diabetes mellitus with hyperglycemia, with long-term current use of insulin (HCC) Inject 10 Units under the skin at bedtime. 15 mL 3 4 Active atorvastatin (Lipitor) 40 MG tabletIndicatio ns:Congestive heart failure, unspecified HF chronicity, unspecified heart failure type (HCC) Take 1 tablet (40 mg) by mouth [...] unspecified HF chronicity, unspecified heart failure type (HCC) TAKE 1 TABLET BY MOUTH EVERY MORNING [...] Date Hematuria 04/29/2025 Overview (07/06/2025): Following with [facility] - Dr. Cramer Assessment & Plan [...] UA, confirmed with send out Following with [facility] Diabetic polyneuropathy asso ciated with type [...] Followed by [facility] - Dr. James Hogan 10mg daily Psoriatic arthritis ([facility]/HCC) 08/30/2024 Overview (04/01/2025): Followed by [facility] Rheum - Dr. Garcia Med therapy: DMARD [...] failure 11/26/2023 Overview (07/06/2025): Previously following with [facility], established with [facility] - Dr. Butcher April: Nuclear stress test: [...] Hospitalization for CHF exacerbation: Oct 2023 at [facility] - Reviewed condition and concerning signs/symptoms Pharmacotherapy: Aspirin 81mg daily Atorvastatin 40mg nightly Furosemide 40mg BID (RX nephrology) Spironolactone 25mg daily (RX cards) Jardiance 25mg daily Carvedilol 6.25mg BID Entresto 24-26mg BID Assessment & Plan (04/01/2025 7:07 PM EDT): Follow-up with [facility] as scheduled in April 2025. Reports they are already on wait list in case anything sooner becomes available. Assessment & Plan (01/27/2025 9:50 AM EDT): Cont current therapy, symptomatic SOB/BELL Referral to [facility] for further eval Assessment & Plan [...] following with renal for proteinuria -Established with [facility] Assessment & Plan (04/01/2025 7:01 PM EDT): - Initial BG reading [facility]. Repeat value [facility] s/p 10 units lispro. Re-check #3 resulted 436 s/p second dose of 10 units insulin lispro. Pt unable to void for UA. Discussed ED precautions. - Previous rx of Jardiance 10mg daily (rx through Changeover Operator - unclear if currently taking) - No [...] initially [facility] in office, continued to be [facility] s/p 10 units lispro subcutaneous. After 2nd [...] tx in Rheum note 02/04/21) -Re-established with [facility] Nov 2021, last consult appt December 2023 Plan to hold methotrexate with hx cardiac conditions Taltz injections through Rheum with notable improvement Assessment & Plan (03/03/2024 2:42 PM EDT): -Previous tx with methotrexate and Enbrel (hx of failed Humira tx in Rheum note 02/04/21) -Re-established with [facility] Rheum Nov 2021, last consult appt December 2023 Plan to hold methotrexate with hx cardiac conditions Authorization for Taltz is pending Assessment & Plan (08/11/2023 1:16 PM EDT): -Previous tx with methotrexate and Enbrel (hx of failed Humira tx in Rheum note 02/04/21) -Re-established with [facility] Nov 2021 Says may have re-started on methotrexate but unsure. Will bring med list to next appt. -Pt was also referred to [facility], appt pending Assessment & Plan (04/12/2023 1:37 PM EDT): -Previous tx with methotrexate and Enbrel (hx of failed Humira tx in Rheum note 02/04/21) -Re-established with [facility] Rhe[facility] Nov 2021 Says may have re-started on methotrexate but unsure. Will bring med list to next appt. -Pt was also referred to [facility], appt pending Assessment & Plan (10/20/2022 9:18 AM EST): -Previous tx with methotrexate and Enbrel (hx of failed Humira tx in Rheum note 02/04/21) -Reports has not been taking any meddications for psoriasis in > 6 month, interested in re-establishing with specialists -Upcoming appt with [facility] Rheum Nov 2021 -Pt was also referred to [facility] Derm Team, appt pending Hypertension 06/13/2012 Assessment [...] apnea syndrome 06/13/2012 Overview (09/01/2024): Following with [facility] - Dr. Balbir Don Cont w/ CPAP, need updated titration report (home sleep study ordered Jul 2024 per specialist) Assessment & Plan (08/13/2023 8:36 AM EDT): Continues with CPAP nightly Due for settings adjustment, and also reporting intermittent discomfort with mask Referral to [facility] Sleep Medicine for further eval and management Resolved Problems Problem Noted Date Diagnosed Date Resolved Date Retention of urine 02/26/2015 3 Elevated levels of transamin ase & lactic acid dehydrogenase 08/14/2012 10/20/2022 Encounters Date Type Department Care Team Description 07/08/2025 Results Follow-Up [facility] [address] [place] [address] Marilee Cordero FNP Lipid Panel, Standard, Vitamin B12/Folate, Serum Panel, Methylmalonic Acid 07/04/2025 8:30 AM EDT Office Visit [facility] [address] [place] [address] Marilee Cordero FNP Type 2 diabetes mellitus [...] Generic External Data 07/04/2025 Travel 07/03/2025 Telephone [facility] [address] [place] [address] Marilee Cordero FNP chart prep 06/26/2025 Travel 05/29/2025 Travel 04/30/2025 Telephone [facility] [address] [place], [place] [phone] Marilee Cordero FNP Call Back Request 04/29/2025 Telephone [facility] [address] [place] [address] Marilee Cordero FNP 04/29/2025 Telephone [facility] [address], [place] [phone] Marilee Cordero FNP DME: COLIN DYE 04/28/2025 9:00 AM EDT Office Visit [facility] [address], [place] [phone] Marilee Cordero FNP Type 2 diabetes mellitus with hyperglycemia, with long-term current use of insulin ([facility]) (Primary Dx); Hematuria, unspecified type; Peripheral nerve disease; Diabetic polyneuropathy associated with type 2 diabetes mellitus ([facility]); Numbness and tingling of right arm; [...] Description 08/14/2025 1:30 PM EDT Medication Management [facility] [address] [place] [address] Lindsay Nur, PharmD [address], [place] [phone] Health Maintenance Due Date Last Done Comments [...] hyperglycemia, with long-term current use of insulin ([facility]) HIV 1/2 ANTIGEN/ANTIBODY, FOURTH GENERATION W/RFL [...] Vitamin B12 237 200 - 900 pg/mL [facility] Comment:NORMAL 200-900 PG/ML INDETERMINATE 160-199 PG/ML DEFICIENT < 160 PG/ML Folate 9.4 > or = 4.0 ng/mL [facility] Comment:Reference Values:> o r = 4.0 ng/mL< 4.0 ng/mL suggests folate deficiency Methotrexate, aminopterin and folinic acid(leucovorin) are chemotherapeutic agents whose molecularstructures are similar to folate; therefore, the Architectfolate assay cannot be used for patients using these drugs. Blood Venous blood specimen / Unknown 07/04/2025 10:07 AM EDT 07/04/2025 11:47 AM EDT us Marilee Cordero OIL DIPPER LAB BLOOD ORDERABLES Final Res ult [facility] [address] [place] [phone] * (ABNORMAL) CBC auto differential (07/04/2025 10:07 AM EDT) White Blood Count 6.5 4.8 - 10.8 X10*3/uL [facility] Red Blood Count 4.74 4.60 - 5.80 X10*6/uL [facility] Hemoglobin 13.7(L) 14.0 - 18.0 g/dl [facility] Hematocrit 39.5(L) 42.0 - 52.0 % [facility] Mean Corpuscular Volume 83.3 80.0 - 98.0 fL [facility] Mean Corpuscular Hemoglobin 28.9 27.0 - 33.0 pg [facility] Mean Corpuscular HGB Conc 34.7 31.0 - 36.0 g/dl [facility] Red Cell Distribution Width 12.9 11.0 - 16.0 % [facility] Platelet Count 186 160 - 400 X10*3/uL [facility] Mean Platelet Volume 9.4 9.4 - 12.4 fL [facility] Neutrophils Percent Auto 80.1(H) 45 - 73 % [facility] Imm Gran Pct Auto 0.3 0.0 - 0.4 % [facility] Lymphocytes Percent Auto 7.8(L) 20 - 40 % [facility] Monocytes Percent Auto 9.5 2 - 11 % [facility] Eosinophils Percent Auto 1.8 0 - 4 % [facility] Basophils Percent Auto 0.5 0 - 2 % [facility] NRBC Pct Auto 0.0 0.0 - 0.2 /100WBC [facility] Neutrophils Absolute Auto 5.2 2.0 - 8.3 x10*3/uL [facility] Imm Gran Abs Auto 0.02 0.00 - 0.03 X10*3/uL [facility] Lymphocytes Absolute Auto 0.5(L) 1.2 - 4.9 X10*3/uL [facility] Monocytes Absolute Auto 0.6 0.1 - 1.2 X10*3/uL [facility] Eosinophils Absolute Auto 0.1 0.0 - 0.4 X10*3/uL [facility] Basophils Absolute Auto 0.0 0.0 - 0.2 X10*3/uL [facility] NRBC Abs Auto 0.000 0.0 - 0.012 X10*3/uL [facility] 07/04/2025 10:0 7 AM EDT 07/04/2025 11:47 AM EDT us Generic External Data Provider LAB BLOOD ORDERAB LES Final Result [facility] [address] [place] [phone] * Methylmalonic Acid (07/04/2025 10:07 AM EDT) Methylmalonic Acid 225 55 - 335 nmol/L [facility] Comment: Serum methylmalonic acid (MMA) levels [...] outcomes,such as neural tube defects and intrauterine growthrestriction.[employer] utilized Multi-Modal Decomposition(MMD) analysis to establish first and second trimester-specific MMA reference intervals in , as givenbelow:MMA, First trimester (<13 wks gestation): 58-167 nmol/LMMA, Second trimester (13-23 wks gestation):63-241 nmol/LThis test was developed and its analytical performancecharacteristics have been determined by [employer]. It has not been cleared or approved by theFDA. This assay has been validated pursuant to the CLIAregulations and is used for clinical purposes.THIS TEST WAS PERFORMED AT:[employer]/[id number] [place] [id number] RANDHAWA MD,PHD Blood Venous blood specimen / Unknown 07/04/2025 10:07 AM EDT 07/04/2025 11:47 AM EDT us Marilee Cordero OIL DIPPER LAB BLOOD ORDERABLES Final Res ult Performing Organization Address [facility] Co de Phone Number [facility] [address] [place] [phone] * (ABNORMAL) Sed Rate by Modified Wilbur (07/04/2025 10:07 AM EDT) Erythrocyte Sedimentation Rate 28(H) 0 - 15 MM/HR [facility] Comment:Patients with polycy themia and many hemoglobin abnormalitiesmay have depressed sed rates whereas patients with anemiamay have elevated sed rates. 07/04/2025 10:0 7 AM EDT 07/04/2025 11:47 AM EDT us Generic External Data Provider LAB BLOOD ORDERAB LES Final Result Performing Organization Address [facility] Co de Phone Number [facility] [address] [place] [phone] * C-reactive Protein (07/04/2025 10:07 AM EDT) Pathologist [facility] C Reactive Protein 0.10 < or = 0.50 mg/dL [facility] 07/04/2025 10:0 7 AM EDT 07/04/2025 11:47 AM EDT us Generic External Data Provider LAB BLOOD ORDERAB LES Final Result Performing Organization Address [facility] Co de Phone Number [facility] [address] [place] [phone] * (ABNORMAL) Lipid Panel, Standard (07/04/2025 10:07 AM EDT) Triglycerides 129 <150 mg/dL [facility] Comment:Desirable Triglyceri de: less than 150 mg/dLBorderline High Triglyceride 150-199 mg/dLHigh Triglyceride: 200-499 mg/dLVery High Triglyceride: greater than or equal to 5OO mg/dL Cholesterol 158 <200 mg/dL [facility] Comment:Desirable Cholestero l: less than 200 mg/dLBorderline High Cholesterol: 200-239 mg/dLHigh Cholesterol: greater than 239 mg/dL LDL Cholesterol Calculated 104(H) <100 mg/dL [facility] Comment:Desirable LDL: less than 100 mg/dLNear Optimal/Above Optimal LDL: 110- 129 mg/dLBorderline High LDL: 130-159 mg/dLHigh LDL: 160-189 mg/dLVery High LDL: greater than or equal to 190 mg/dL HDL Cholesterol 29(L) >40 mg/dL [facility] Comment:Desirable HDL: great er than 40 mg/dL Note: This HDL assay may give artificially low results in patients with liver disease. Blood Venous blood specimen / Unknown 07/04/2025 10:07 AM EDT 07/04/2025 11:47 AM EDT Marilee Cordero OIL DIPPER LAB BLOOD ORDERABLES Final Res ult [facility] [address] [place] [phone] * (ABNORMAL) Comprehensive Metabolic Panel (07/04/2025 10:07 AM EDT) Sodium 143 135 - 145 mmol/L [facility] Potassium 4.6 3.3 - 5.1 mmol/L [facility] Chloride 109(H) 96 - 108 mmol/L [facility] Carbon Dioxide 28 22 - 29 mmol/L [facility] Anion Gap 11(L) 12 - 20 [facility] Urea Nitrogen (BUN) 23(H) 9 - 16 mg/dL [facility] Creatinine, Serum 0.96 0.5 - 1.4 mg/dL [facility] Estimated Glomerular Filt Rate >60 [facility] Comment:Chronic Kidney Disea se: Estimated GFR < 60 mL/min/1.25d7Rwinmg Kidney Disease: Estimated GFR < 15 mL/min/1.73m2 Glucose 135(H) 60 - 115 mg/dL [facility] Calcium 9.2 8.4 - 10.2 mg/dL [facility] Bilirubin, Total 0.8 0.0 - 1.0 mg/dL [facility] Aspartate Amino Transferase 25 5 - 37 U/L [facility] Alanine Aminotransferase 27 0 - 40 U/L [facility] Total Protein 6.4(L) 6.5 - 8.0 g/dL [facility] Albumin Level 3.8 3.5 - 5.0 g/dL [facility] Alkaline Phosphatase 60 39 - 117 U/L [facility] 07/04/2025 10:0 7 AM EDT 07/04/2025 11:47 AM EDT Generic External Data Provider LAB BLOOD ORDERAB LES Final Result [facility] [address] [place] [phone] * (ABNORMAL) POCT A1c (06/26/2025 1:35 PM EDT) Hemoglobin A1C 10.8(A) 4.0 - 5.7 % QC Media Lot # [id number] Lot# Expiration Date Blood 06/26/2025 1:35 PM EDT Marilee OTERO POINT OF CARE TEST ENTER/EDIT ORDERABLES Final Result * Cytopath-cell enhanced (04/28/2025 3:00 PM EDT) 04/28/2025 3:00 PM EDT 04/29/2025 8:40 AM EDT Narrative [facility] - 04/29/2025 1:59 PM EDT ----- ------- Name: Joesph Saldana Age/Sex: 54/M : 1970 Unit#: [id number] Attend Dr: Malvin Cramer MD Re04/28/25 Status: [place] [facility] Disch: ----- ------- SPEC : [id number] RECD: 04/29/25 STATUS: JANET FLORENCE NUM: [id number] JUDITH: 04/28/25-[address] [facility] [address]: Malvin Cramer MD ENTERED: 04/29/25 SP TYPE: Cytology OT DR: Marilee Cordero OIL DIPPER ORDERED: Cyto-enhanced Diagnosis Urine: Negative for high-grade [...] developed and their performance characteristics determined by [facility]. They have not been cleared or approved by the U.S. Food and Drug Administration (FDA). However, the FDA has determined that such clearance or approval is not necessary. This laboratory is certified under the Clinical Laboratory Improvement Amendments of 1988 (CLIA) as qualified to perform high complexity clinical laboratory testing. Copies To: Malvin Cramer MD [facility] U[facility] Services [address] [place] [address] [address] [place], [place] [phone] [email or web address] Marilee Cordero [address] [place], [place] [phone] CONTINUED ON NEXT PAGE ----- ------- Name: Joesph Saldana Age/Sex: 54/M : 1970 Unit#: [id number] Attend Dr: Malvin Cramer MD Re04/28/25 Status: DEP REF Location: .LAB Disch: ----- ------- SPEC : [id number] RECD: 04/29/25 STATUS: JANET POWELL NUM: [id number] JUDITH: 04/28/25-[address] [facility] [address]: Malvin Cramer MD ENTERED: 04/29/25 SP TYPE: Cytology OTHR : Marilee Cordero ORDERED: Cyto-enhanced ----- ------- Signed (signature on file) Bradly See MD 04/29/25 1359 ----- ------- END OF REPORT us Generic External Data Provider LAB CYTOLOGY YAZ JUAREZ Final Result [facility] [address] [place] [phone] * (ABNORMAL) Urinalysis Complete (04/28/2025 10:10 AM EDT) Color Urine Yellow [facility] Appearance Urine Clear [facility] PH 5.5 5.0 - 9.0 [facility] Glucose Urine UA >=1000(A) Negative mg/dL [facility] Urine Blood Small (1+)(A) Negative [facility] Specific Blair - Urine 1.020 1.005 - 1.025 [facility] Urine Protein 300 (3+)(A) Neg-Trace mg/dL [facility] Urine Ketones Negative Negative mg/dL [facility] Nitrite Urine Negative Negative [facility] Leukocyte Esterase Urine Negative Negative [facility] RBC Urine 3-5(A) 0 - 2 /HPF [facility] Urine WBC 0-5 0 - 5 /HPF [facility] Urine Squamous Epithelial Cell 0-2 0 - 2 /HPF [facility] Urine Bacteria None Seen None Seen [facility] Hyaline Casts, Urine 3-5 0 - 2 /LPF [facility] GRANULAR CASTS (#/HPF) IN URINE Present [facility] Urine (Urine, Random) 04/28/2025 10:10 AM EDT 04/28/2025 5:57 PM EDT Marilee Bazannew [facility] URINE ORDERABLES Final Res ult [facility] [address] [place] [phone] * (ABNORMAL) POCT Urinalysis (04/28/2025 9:45 [...] Urine 04/28/2025 9:45 AM EDT Marilee [facility] POINT OF CARE TEST ENTER/EDIT ORDERABLES Final Result * (ABNORMAL) POCT Glucose (04/28/2025 9:32 AM EDT) [facility] Glucose Blood, POC 384(A) 60 - 200 mg/dL Blood Capillary blood specimen / Unknown 04/28/2025 9:32 AM EDT Marliee [facility] POINT OF CARE TEST ENTER/EDIT ORDERABLES Final Result * Hepatitis Panel, General (02/26/2025 7:32 AM EDT) Pathologist [facility] Hepatitis A IgM Nonreactive Nonreactive [facility] Comment:IgM antibodies to GIBSON V not detected; does not exclude earlyacute or recovered HAV infection. ~Hepatitis B Surface Antibody NONREACTIVE Nonreactive [facility] Comment:Nonreactive: < 8.00 mIU/mL Hepatitis B Core Antibody Nonreactive Nonreactive [facility] Hepatitis C Antibody Nonreactive Nonreactive [facility] Comment:Antibodies to HCV no t detected; does not exclude early acuteHCV infection. Hepatitis B Surface Ag Negative Negative [facility] 02/26/2025 7:32 AM EDT 02/26/2025 7:32 AM EDT us Generic External Data Provider LAB BLOOD ORDERAB LES Final Result Performing Organization Address [facility] de Phone Number [facility] [address] [place] [phone] * (ABNORMAL) Albumin, Random Urine W/Creatinine (12/25/2023 9:50 AM EST) Creatinine, Urine 162.10 mg/dL [facility] Microalbumin Urine >2,000.0 mg/L H [facility] Microalbum Creatinine Ratio Ur 1,233.8(H ) <30 ug/mg cr [facility] Comment:Albumin/Creatinine R atio Reference Ranges: Normal: < 30 ug/mg creatinine Microalbuminuria: 30 - 300 ug/mg creatinineClinical Albuminuria: > 300 ug/mg creatinine Urine 12/25/2023 9:50 AM EST 12/25/2023 2:38 PM EST Marilee LISAP LAB URINE ORDERABLES Final Res ult Performing Organization Address [facility] de Phone Number [facility] [address] [place] [phone] * HIV-1/2 Antigen and Antibodies, Fourth Generation, with Reflexes (09/13/2023 7:53 AM EST) HIV AB/AG Nonreactive Nonreactive [facility] Comment:HIV-1 p24 Ag and/or HIV-1/HIV-2 Ab not detected.A test result that is nonreactive does not exclude thepossibility of exposure to or infection with HIV-1 and/orHIV-2. Nonreactive results in this assay for individualswith prior exposure to HIV-1 and/or HIV-2 may be due toantigen and antibody levels that are below the limit ofdetection of this assay.The Exosectnity HIV Ag/Ab Combo assay result andsupplemental assay results should be interpreted inconjunction with the patient's clinical presentation,history and other laboratory results. If the results areinconsistent with clinical evidence, additional testing issuggested to confirm the result. Blood Venous blood specimen / Unknown 09/13/2023 7:53 AM EST 09/13/2023 7:53 AM EST us Marilee Cordero [facility] BLOOD ORDERABLES Final Res ult [facility] [address] [place] [phone] from Last 3 Months or Most Recently Relevant to Health Maintenance Insurance [facility] PARTIAL (MEDICAID) Care Teams Food Cooking Machine Operator Relationship Specialty Start Date End Date Marilee Cordero FNP [address] [place] [address] PCP - General Family Medicine 03/23/23 Cristo Garcia MD [address] [place] [phone] Rheumatology 09/01/24 Yoselyn Lyons [address] [place] [address] Ophthalmology 09/01/24 Balbir Don 22 [facility] [address] [place] [address] Sleep Medicine 09/01/24 Lindsay Nur PharmD [address] [place] [address] Pharmacist Pharmacy 05/29/25 Meño Butcher MD [address] [place] [address] [address] [place] [address] Cardiology 07/06/25 Dr. Ramirez [address] [place] [phone] Nephrology 09/01/24
--- OUTSIDE RECORDS SUMMARY | 2025-07-29 16:00 | XMS_ITS | Clinical Summary ---
Author Organization [facility] [place] [address] Phone Care Team Providers Care Mobile Home Servicer Name Role Phone Physician, Pcp Unknown Primary [...] - 06/07/2025 2:36 PM EDT Hospital Encounter [facility] [address] [place] [address] Bayron Hester MD Shapiro, Benjamin, [...] (hyper tension) DM2 (diabetes mellitus, type 2) ([facility] V24, [facility] V28) 06/04/2012 DX:DM2 (diabetes mellitus, t ype 2) ([facility]) Obstructive sleep apnea 06/04/2012 DX:Obstr uctive sleep apnea Psoriatic arthritis ([facility] V24, [facility] V28) 06/04/2012 DX:Psoriatic arthritis ([facility]) Hyperlipidemia 06/04/2012 DX:Hyperlipidemi a; COMMENT: IMO [...] Heart attack Other cousins with fa [place]'s 40's Asthma Sister Relation Name Status Comments Aunt Father Grandparent Mother Other Sister Social History Tobacco Use Types Packs/Day Years Used Date Smoking Tobacco: Never Smokeless Tobacco: Never Alcohol Use Standard Drinks/Week Comments Never 0 (1 standard drink = 0.6 oz pur e alcohol) Interpersonal Safety Answer Date Record ed Physical Abuse Unrecognized value 06/06/2025 Verbal Abuse Unrecognized value 06/06/2025 Sex and Gender Information Value Date [...] Health Maintenance Due Date Last Done Comments Colorectal Cancer Screening: Colonoscopy 1970 Diabetes: Annual Foot Exam 1980 Diabetes: Annual Retina Eye Exam 1980 Hepatitis B Vaccines (1 of 3 - 19+ 3-dose series) 1989 09/27/2005, 05/31/2005, 03/24/2005 Diabetes: Annual Urine Albumin-Creatinine Ratio (uACR) 10/12/2022 [...] or Tdap) 05/26/2032 05/26/2022, 08/12/2014, 02/25/2005 RSV Immunization Adult Patients (1 - 1-dose 75+ series) 2045 Hepatitis [...] Results * ECG-Annotated (06/09/2025) us Provider Onbase MD ECG ORDERABLES Final Result * (ABNORMAL) POCT Glucose, blood (06/07/2025 11:44 AM EDT) Only the most recent of4 resultswithin the time period is included. [facility] Glucose POCT 271(H) 70 - 100 mg/dL 06/07/2025 11:44 AM EDT [facility] Blood Capillary blood specimen / Unknown 06/07/2025 11:44 AM EDT 06/07/2025 11:45 AM EDT Corey Willingham MD LAB POINT O F CARE TEST DOCKED DEVICE UNSOLICITED RESULTS Final Result [facility] [address] [place] [address], * Troponin I high sensitivity (06/07/2025 5:51 AM EDT) Only the most recent of4 resultswithin the time period is included. [facility] High Sensitivity Troponin I 38 <=79 ng/L LAB CHEMISTRY METHOD 06/07/2025 6:58 AM EDT [facility] Blood Venous blood specimen / Unknown Venipuncture / Unknown 06/07/2025 5:51 AM EDT 06/07/2025 6:22 AM EDT Narrative [facility] - 06/07/2025 6:58 AM EDT High levels of biotin in samples may falsely decrease hsTroponin values. Use caution when interpreting hsTroponin results in patients taking biotin who exhibit renal impairment (eGFR <60) or in patients taking more than 20 mg/day of biotin. us Hyacinth DORSEY LAB BLOOD ORDERABLES Final R esult [facility] [address] [place] [address], [place] [phone] * (ABNORMAL) Complete blood count (06/07/2025 5:51 AM EDT) [facility] WBC 5.7 4.8 - 10.8 K/mcL LAB [...] LAB HEMETOLOGY METHOD 06/07/2025 8:00 AM EDT [facility] MPV 9.7 7.0 - 11.0 FL LAB HEMETOLOGY METHOD 06/07/2025 8:00 AM EDT [facility] NRBC 0.0 <1.0 % LAB HEMETOLOGY METHOD 06/07/2025 8:00 AM EDT [facility] NRBC Absolute 0.00 <0.10 K/mcL LAB HEMETOLOGY METHOD 06/07/2025 8:00 AM EDT [facility] Blood Venous blood specimen / Unknown Venipuncture / Unknown 06/07/2025 5:51 AM EDT 06/07/2025 6:23 AM EDT us Hyacinth DORSEY LAB BLOOD ORDERABLES Final R esult [facility] [address] [place] [address], [place] [phone] * (ABNORMAL) Magnesium (06/07/2025 5:51 AM EDT) Magnesium 2.7(H) 1.9 - 2.6 mg/dL LAB CHEMISTRY METHOD 06/07/2025 6:58 AM EDT [facility] Blood Venous blood specimen / Unknown Venipuncture / Unknown 06/07/2025 5:51 AM EDT 06/07/2025 6:23 AM EDT Hyacinth DORSEY LAB BLOOD ORDERABLES Final R esult [facility] [address] [place] [address], [place] [phone] * (ABNORMAL) Basic metabolic panel (06/07/2025 5:51 AM EDT) Only the most recent of2 resultswithin the time period is included. Sodium 139 133 - 145 mmol/L LAB CHEMISTRY METHOD 06/07/2025 6:58 AM [facility] Potassium 3.6 3.5 - 5.5 [...] DORSEY LAB BLOOD ORDERABLES Final R esult [facility] [address] [place] [address], [place] [phone] * SST tube (06/06/2025 7:06 PM EDT) [facility] Extra Tube Hold for add-ons. 06/06/2025 9:01 PM EDT [facility] Comment:Auto resulted. Blood Venous blood specimen / Unknown 06/06/2025 7:06 PM EDT 06/06/2025 7:26 PM EDT us Danny Larose DO LAB BLOOD ORDERABLES Final R esult Performing Organization Address [facility] Co de Phone Number [facility] [address] [place] [address], [place] [phone] * Light blue tube (06/06/2025 7:06 PM EDT) [facility] Extra Tube Hold for add-ons. 06/06/2025 9:01 PM EDT [facility] Comment:Auto resulted. Blood Venous blood specimen / Unknown 06/06/2025 7:06 PM EDT 06/06/2025 7:26 PM EDT us Danny Larose DO LAB BLOOD ORDERABLES Final R esult Performing Organization Address [facility]/ZIP Co de Phone Number [facility] [address] [place] [address], [place] [phone] * Respiratory virus panel molecular study (06/06/2025 3:52 PM EDT) [facility] Adenovirus Detection by PCR Not Detected Not Detected LAB MICROBIOLOGY METHOD 06/06/2025 5:19 PM EDT [facility] Influenza A PCR Not Detected Not Detected LAB MICROBIOLOGY METHOD 06/06/2025 5:19 PM EDT [facility] Influenza B PCR Not Detected Not Detected LAB MICROBIOLOGY METHOD 06/06/2025 5:19 PM EDT [facility] Coronavirus 229E Not Detected Not Detected LAB MICROBIOLOGY METHOD 06/06/2025 5:19 PM EDT [facility] Coronavirus HKU1 Not Detected Not Detected LAB MICROBIOLOGY METHOD 06/06/2025 5:19 PM EDT [facility] Coronavirus OC43 Not Detected Not Detected LAB MICROBIOLOGY METHOD 06/06/2025 5:19 PM EDT [facility] Coronavirus NL63 Not Detected Not Detected LAB MICROBIOLOGY METHOD 06/06/2025 5:19 PM EDT [facility] Parainfluenza Virus 1 Not Detected Not Detected LAB MICROBIOLOGY METHOD 06/06/2025 5:19 PM EDT [facility] Parainfluenza Virus 2 Not Detected Not Detected LAB MICROBIOLOGY METHOD 06/06/2025 5:19 PM EDT [facility] Parainfluenza Virus 3 Not Detected Not Detected LAB MICROBIOLOGY METHOD 06/06/2025 5:19 PM EDT [facility] Parainfluenza Virus 4 Not Detected Not Detected LAB MICROBIOLOGY METHOD 06/06/2025 5:19 PM EDT [facility] RSV PCR Not Detected Not Detected LAB MICROBIOLOGY METHOD 06/06/2025 5:19 PM EDT [facility] Human Metapneumovirus A and B Not Detected Not Detected LAB MICROBIOLOGY METHOD 06/06/2025 5:19 PM EDT [facility] Rhinovirus/Entero virus Not Detected Not Detected LAB MICROBIOLOGY METHOD 06/06/2025 5:19 PM EDT [facility] Bordetella pertussis Not Detected Not Detected LAB MICROBIOLOGY METHOD 06/06/2025 5:19 PM EDT [facility] Bordetella parapertussis Not Detected Not Detected LAB MICROBIOLOGY METHOD 06/06/2025 5:19 PM EDT [facility] Mycoplasma pneumo by PCR Not Detected Not Detected LAB MICROBIOLOGY METHOD 06/06/2025 5:19 PM EDT [facility] Chlamydia pneumoniae Not Detected Not Detected LAB MICROBIOLOGY METHOD 06/06/2025 5:19 PM EDT [facility] SARS COV-2 Not Detected Not Detected LAB MICROBIOLOGY METHOD 06/06/2025 5:19 PM EDT [facility] Swab Both anterior nares / Unknown Non-blood Collection / Unknown 06/06/2025 3:52 PM EDT 06/06/2025 4:14 PM EDT Narrative [facility] - 06/06/2025 5:19 PM EDT Testing was performed using the Ofelia Feliz Respiratory Pathogen PCR Assay. All results must [...] that are below the limit of detection. us Hyacinth DORSEY LAB MICROBIOLOGY - GENERAL O RDERABLES Final Result [facility] [address] [place] [address], * CT Angio Chest wo and/or w [...] Signed Date: 06/06/2025 15:19 ET Workstation ID: [id number] Transcribed By: Self Edit Transcribed Date: 06/06/2025 [...] Signed Date: 06/06/2025 15:19 ET Workstation ID: [id number] Transcribed By: Self Edit Transcribed Date: 06/06/2025 15:12 ET Bayron Hester MD IMG CT PROCEDURES Final Res ult * D-dimer, quantitative (06/06/2025 11:48 AM EDT) D-Dimer, Quant (D-DU) 191 <=230 ng/mL DDU LAB COAGULATION METHOD 06/06/2025 12:27 PM EDT [facility] Blood Venous blood specimen / Unknown Venipuncture / Unknown 06/06/2025 11:48 AM EDT 06/06/2025 12:15 PM EDT Narrative [facility] - 06/06/2025 12:27 PM EDT D-Dimer <230 ng/mL (D-Dimer units) is the threshold for exclusion of DVT/PE. D-Dimer may be elevated in: Critically ill, severely infected, trauma patients, DIC, acute CVA, acute [place], unstable angina, AF, old age, , and smoking. D-Dimer may be decreased with: Initiation of heparin therapy and oral anticoagulants. Bayron Hester MD LAB BLOOD ORDERABLES Final Result [facility] [address] [place] [address], * XR Chest 1 View (06/06/2025 11:04 AM EDT) Anatomical Region Laterality Modality Body Radiographic Aleida ging 06/06/2025 11:0 7 AM EDT Impressions 06/06/2025 11:08 AM EDT No acute pulmonary disease. Pulmonary vascular congestion consistent with congestive heart failure has resolved since 02/15/2025. Cardiomegaly is stable. Code 91779 -------- FINAL REPORT -------- Dictated By: Ceasar Lopez Dictated Date: 06/06/2025 11:07 ET Assigned Physician: Ceasar Lopez Reviewed and Electronically Signed By: Ceasar Lopez Signed Date: 06/06/2025 11:08 ET Workstation ID: [id number] Transcribed By: Self Edit Transcribed Date: 06/06/2025 [...] has resolved since 02/15/2025. Cardiomegaly isstable. Code 36474 -------- FINAL REPORT -------- Dictated By: Ceasar Lopez Dictated Date: 06/06/2025 11:07 ET Assigned Physician: Ceasar Lopez Reviewed and Electronically Signed By: Ceasar Lopez Signed Date: 06/06/2025 11:08 ET Workstation ID: [id number] Transcribed By: Self Edit Transcribed Date: 06/06/2025 11:07 ET us Bayron Hester MD IMG XR PROCEDURES Final Res ult * ECG 12 lead (06/06/2025 10:54 AM EDT) Ventricular Rate ECG 65 BPM GEMUSE Atrial Rate 65 BPM GEMUSE P-R Interval 144 ms GEMUSE QRS Duration 78 ms GEMUSE Q-T Interval 438 ms GEMUSE QTc 455 ms GEMUSE P Wave [place] 26 degrees GEMUSE R [place] 4 degrees GEMUSE T [place] 116 degrees GEMUSE ECG Interpretation Normal sinus [...] METHOD 06/06/2025 10:58 AM [facility] RBC 5.40 4.50 - 5.50 [facility] LAB HEMETOLOGY METHOD 06/06/2025 10:58 AM [facility] Hemoglobin 15.3 13.5 - 17.5 g/dL LAB HEMETOLOGY METHOD 06/06/2025 10:58 AM [facility] Hematocrit 44.2 42.0 - 54.0 % LAB HEMETOLOGY METHOD 06/06/2025 10:58 AM [facility] MCV 81.4 79.0 - 98.0 FL LAB HEMETOLOGY METHOD 06/06/2025 10:58 AM [facility] MCH 28.2 27.0 - 32.0 pcg LAB HEMETOLOGY METHOD 06/06/2025 10:58 AM [facility] MCHC 34.6 32.0 - 37.0 g/dL LAB HEMETOLOGY METHOD 06/06/2025 10:58 AM [facility] RDW 13.2 11.0 - 15.0 % LAB HEMETOLOGY METHOD 06/06/2025 10:58 AM EDT [facility] Platelets 230 130 - 400 K/mcL LAB HEMETOLOGY METHOD 06/06/2025 10:58 AM [facility] MPV 9.7 7.0 - 11.0 FL LAB HEMETOLOGY METHOD 06/06/2025 10:58 [facility] NRBC 0.0 <1.0 % LAB [...] LAB HEMETOLOGY METHOD 06/06/2025 10:58 AM EDT [facility] Monocytes Absolute 0.53 0.20 - 1.00 K/mcL LAB HEMETOLOGY METHOD 06/06/2025 10:58 AM EDT [facility] Eosinophils Absolute 0.08 0.00 - 0.50 K/mcL LAB HEMETOLOGY METHOD 06/06/2025 10:58 AM EDT [facility] Basophils Absolute 0.03 0.00 - 0.20 K/mcL LAB HEMETOLOGY METHOD 06/06/2025 10:58 AM EDT [facility] Immature Granulocytes Absolute 0.03 0.00 - 0.03 K/mcL LAB HEMETOLOGY METHOD 06/06/2025 10:58 AM EDT [facility] Blood Venous blood specimen / Unknown Venipuncture / Unknown 06/06/2025 10:42 AM EDT 06/06/2025 10:50 AM EDT Bayron Hester MD LAB BLOOD ORDERABLES Final Result Performing Organization Address City/[facility]/ZIP Co de Phone Number [facility] [address] [place] [address], [place] [phone] * B-type natriuretic peptide (06/06/2025 10:42 AM EDT) BNP 92 <=100 pcg/mL LAB CHEMISTRY METHOD 06/06/2025 11:29 AM EDT [facility] Blood Venous blood specimen / Unknown Venipuncture / Unknown 06/06/2025 10:42 AM EDT 06/06/2025 10:50 AM EDT Bayron Hester MD LAB BLOOD ORDERABLES Final Result [facility] [address] [place] [address], [place] [phone] * Serum albumin (06/06/2025 10:42 AM EDT) Albumin 3.2 3.2 - 5.0 g/dL LAB CHEMISTRY METHOD 06/06/2025 2:58 PM EDT [facility] Blood Venous blood specimen / Unknown Venipuncture / Unknown 06/06/2025 10:42 AM EDT 06/06/2025 10:50 AM EDT Hyacinth DORSEY LAB BLOOD ORDERABLES Final R esult [facility] [address] [place] [address], [place] [phone] * Hepatitis C antibody (02/16/2025 2:00 PM EDT) [facility] Hepatitis C Antibody Negative Negative LAB CHEMISTRY METHOD 02/16/2025 5:37 PM EDT [facility] Blood Venous blood specimen / Unknown Venipuncture / Unknown 02/16/2025 2:00 PM EDT 02/16/2025 2:05 PM EDT Ish David MD LAB BLOOD ORDERABLES Final Res ult [facility] [address] [place] [address], [place] [phone] from Last 3 Months or Most Recently Relevant to Health Maintenance Insurance [facility] [employer] Advance Directives * Full [...] currently active code status orders. Care Teams Mobile Home Servicer Relationship Specialty Start Date End Date Physician, Pcp Unknown PCP - General 05/01/25
--- OUTSIDE RECORDS SUMMARY | 2025-07-29 16:00 | XMS_ITS | Encounter Summary ---
Author Organization [employer] Address [address] [facility] [address] [place] [address] Care Team Providers Care Stationary Boiler Fireman Name Role Phone Marilee Cordreo Primary Care Provider [phone] Cristo Garcia MD Unavailable Doris Candelario Unavailable [phone] Yoselyn Lyons Unavailable Unavailable Balbir Don Unavailable Lindsay NurD Unavailable [phone] Meño Butcher MD Unavailable [phone] Reason for Visit * Reason Onset Date Comments Hospital Follow-up 03/17/2025 Encounter Details Date Type Department Care Team (Late st Contact Info) Description 03/17/2025 Telephone [facility] MEDICINE [address] [place] [address] Marilee Cordero FNP [address] [place], [place] [phone] Hospital Follow-up Social History Tobacco Use Types [...] from pt requesting a HDF appt. Hospital: [facility] Date of admission: 03/11/25 Discharge date: 03/15/25 Diagnosed: Leg pain and goes up to back *Send message to Noman Clinical Care Coordinators documented in this encounter Plan of Treatment Upcoming Encounters Date Type Department Care Team (Late st Contact Info) Description 08/14/2025 1:30 PM EDT Medication Management [facility] MED & PEDS [address] [place] [address] Lindsay Nur, PharmD [address] [place] [address] documented as of this encounter Visit Diagnoses Not on filedocumented in this encounter Additional Health Concerns Assessment Noted Time PHQ-9 Depression Total Score: 13 03/31/2 025 8:59 AM EDT documented as of this encounter Care Teams Stationary Boiler Fireman Relationship Specialty Start Date End Date Marilee Cordero FNP [address] [place] [address] PCP - General Family Medicine 03/23/23 Cristo Garcia MD [address] [place] [address] [address] [place] [address] Rheumatology 09/01/24 Doris Candelario [address] [place] [address] Cardiology 09/01/24 07/05/25 Yoselyn Lyons [address] [place] [address] Ophthalmology 09/01/24 Balibr Don [address] [facility] [address] [place] [address] Sleep Medicine 09/01/24 Lindsay Nur PharmD [address] [place] [address] Pharmacist Pharmacy 05/29/25 Meño Butcher MD [address] [place] [address] 3rd [place] [address] Cardiology 07/06/25 Dr. Ramirez [address] [facility] [address] [place] [address] Nephrology 09/01/24 [facility] 03/18/25 05/04/25 documented as of this encounter
--- OUTSIDE RECORDS SUMMARY | 2025-07-29 16:00 | XMS_ITS | Clinical Summary ---
Author Organization [facility] Address [address] [address] Phone Care Team Providers Care Escort Patients Name Role Phone Marilee Cordero BRANDEN Primary Care Provider [phone] Allergies No known active allergies Medications amLODIPine [...] Followed by [facility] - Dr. Maturostrakul Jardiance 10mg daily Congestive heart failure 11/26/2023 Overview (04/03/2024): [facility] Jul 2023: Nuclear stress test: Negative ECG [...] Psoriatic arthritis 06/04/2012 Overview (03/26/2025): Followed by [facility] Rheum - Dr. Garcia Med therapy: DMARD, Derik Previous tx: methotrexate and Enbrel (hx of failed Humira tx in Rheum note 02/04/21). Plan to hold methotrexate with hx cardiac conditions Obstructive sleep apnea syndrome 06/04/2012 Overview (03/26/2025): Following with [facility] - Dr. Balbir Don Cont w/ CPAP, [...] to 49 Years) Discontinued 06/28/2018, 09/30/2008 Insurance [employer] [facility] ([id number]) [employer] [facility] ([id number]) Care Teams Escort Patients Relationship Specialty Start Date End Date Marilee Cordero FNP [address] [place] [address] PCP - General 01/08/24
--- OUTSIDE RECORDS SUMMARY | 2025-07-29 16:00 | XMS_ITS | Encounter Summary ---
Author Organization [employer] Address [address] [place] [address] 7[address] [place] [address] Care Team Providers Care User Interface Designer Name Role Phone Marilee Cordero Primary Care Provider [phone] Cristo Garcia MD Unavailable Doris Candelario Unavailable [phone] Yoselyn Lyons Unavailable Unavailable Balbir Don Unavailable Lindsay Nur PharmD Unavailable [phone] Meño Butcher MD Unavailable [phone] Reason for Referral * Consultation (Routine) - Closed Specialty Diagnoses / Procedures Referred By Contzena t Referred To Contact Nephrology Diagnoses Albuminuria Marilee Cordero FNP [address] [place] [address] Phone: tel: fax: Bayron Marshall MD [address] [facility] [address] [place] [address] Phone: tel: fax: Referral ID Status Reason Start Date Expiration Date V isits Requested Visits Authorized [id number] Closed Specialty Services Required 12/29/2023 12/28/2024 1 1 Encounter Details Date Type Department Care Team (Late st Contact Info) Description 12/29/2023 Orders Only [facility]S [address] [place], [place] [phone] Marilee Cordero FNP [address] [place], [place] [phone] Albuminuria (Primary Dx) Social History Tobacco Use [...] Description 08/14/2025 1:30 PM EDT Medication Management [facility] [address] [place] [address] Lindsay Nur, PharmD [address] [place] [address] documented as of this encounter Procedures Procedure [...] documented as of this encounter Care Teams User Interface Designer Relationship Specialty Start Date End Date Marilee Cordero FNP [address] [place] [address] PCP - General Family Medicine 03/23/23 Cristo Garcia MD [address] [place] [phone] Rheumatology 09/01/24 Doris Candelario [address] [place] [address] Cardiology 09/01/24 07/05/25 Yoselyn Lyons [address] [place] [address] Ophthalmology 09/01/24 Balbir Don [address] [facility] [address] [place] [address] Sleep Medicine 09/01/24 Lindsay Nur PharmD [address] [place] [address] Pharmacist Pharmacy 05/29/25 Meño Butcher MD [address] [place] [address] 3rd [place] [address] Cardiology 07/06/25 Dr. Ramirez 100 [facility] [address] [place] [address] Nephrology 09/01/24 Noman LAWRENCE 03/18/25 05/04/25 documented as of this encounter
== END 2025-07-29 15:03 | disposition home or self-care (01) ==
LOC: HO.HKA 14:36
PROVIDERS: PCP Registered Nurse; Referring Provider Urology; Visit Provider Internal Medicine Hypertension Specialist
DX: R80.9 Proteinuria, unspecified (principal); R31.9 Hematuria, unspecified; L40.50 Arthropathic psoriasis, unspecified; I50.23 Acute on chronic systolic (congestive) heart failure; G47.33 Obstructive sleep apnea (adult) (pediatric)
CPT/HCPCS: 99204

== ENCOUNTER → 2025-07-29 14:36 | Outpatient (BNVA) | payer OTHER, SELFPAY | PROVIDERS: PCP Registered Nurse; Referring Provider Urology; Visit Provider Internal Medicine Hypertension Specialist | DX: I10 Essential (primary) hypertension (principal); R31.9 Hematuria, unspecified; R80.9 Proteinuria, unspecified; L40.50 Arthropathic psoriasis, unspecified; I50.23 Acute on chronic systolic (congestive) heart failure; G47.33 Obstructive sleep apnea (adult) (pediatric) | CPT/HCPCS: 99202 ==

== ENCOUNTER 2025-08-25 12:48 | Outpatient (REF) | payer OTHER, SELFPAY ==
--- NOTE | 2025-08-25 | EMG_ITS ---
Chief complaint:?R20.2 Paresthesia of skin R20.0 Anesthesia of skin Reason for referral: Numbness and tingling in both hands Referred by:?Marilee Cordero Procedure done: Bilateral upper extremities NCS/EMG Bilateral median and ulnar motor studies were performed with F responses. Bilateral radial sensory studies and bilateral median and ulnar mixed sensory studies were performed. EMG needle examination was performed. Bilateral median motor distal latencies were significantly prolonged with mild reduction of amplitude. Right median conduction velocity was 36 m/sec. Ulnar motor amplitudes were moderately reduced with mild reduction of conduction velocity in 30s. Sensory responses were absent. Paraspinal needle examination did not reveal any significant abnormality. Impression: [id number] sensory and motor axonal peripheral neuropathy. Codin [id number] 2 extremities MTDD
--- OUTSIDE RECORDS SUMMARY | 2025-08-25 16:13 | XMS_ITS | Encounter Summary ---
Author Organization [employer] Address [address] [place] [address] [address] [place] [address] Care Team Providers Care Steam Flattener Name Role Phone Marilee Cordero Primary Care Provider [phone] Cristo Garcia MD Unavailable Doris Candelario Unavailable [phone] Yoselyn Lyons Unavailable Unavailable Balbir Don Unavailable Lindsay Nur PharmD Unavailable [phone] Meño Butcher MD Unavailable [phone] Reason for Referral * Consultation (Routine) - Closed Specialty Diagnoses / Procedures Referred By Contzena t Referred To Contact Nephrology Diagnoses Albuminuria Marilee Cordero FNP [address] [place] [address] Phone: tel: fax: Bayron Marshall MD 100 [facility] 200 [place] [address] Phone: tel: fax: Referral ID Status Reason Start Date Expiration Date V isits Requested Visits Authorized [id number] Closed Specialty Services Required 12/29/2023 12/28/2024 1 1 Encounter Details Date Type Department Care Team (Late st Contact Info) Description 12/29/2023 Orders Only [facility] [address] [place], [place] [phone] Marilee Cordero FNP [address] [place], [place] [phone] Albuminuria (Primary Dx) Social History Tobacco Use [...] Care Team (Late st Contact Info) Description 09/05/2025 1:00 PM EST Medication Management [facility] [address] [place] [address] Lindsay Nur, PharmD [address] [place] [address] documented as of this encounter Procedures Procedure [...] documented as of this encounter Care Teams Steam Flattener Relationship Specialty Start Date End Date Marilee Cordero FNP [address] [place] [address] PCP - General Family Medicine 03/23/23 Cristo Garcia MD [address] [place] [address] Rheumatology 09/01/24 Doris Candelario [address] [place] [address] Cardiology 09/01/24 07/05/25 Yoselyn Lyons [address] [place] [address] Ophthalmology 09/01/24 Balbir Don 22 [facility] 301 [place] [address] Sleep Medicine 09/01/24 Lindsay Nur PharmD [address] [place] [address] Pharmacist Pharmacy 05/29/25 Meño Butcher MD [address] [place] [address] 3rd [place] [address] Cardiology 07/06/25 Dr. Ramirez 100 [facility] 200 [place] [address] Nephrology 09/01/24 Noman LAWRENCE 03/18/25 05/04/25 documented as of this encounter
--- OUTSIDE RECORDS SUMMARY | 2025-08-25 16:13 | XMS_ITS | Clinical Summary ---
Author Organization [facility] Address [address] [address] Phone Care Team Providers Care Journeyman Painter Name Role Phone Marilee Cordero BRANDEN Primary Care Provider [phone] Allergies No known active allergies Medications amLODIPine [...] Followed by [facility] - Dr. Maturostrakul Jardiance 10mg daily Congestive heart failure 11/26/2023 Overview (04/03/2024): [facility]: Nuclear stress test: Negative ECG portion of the stress test. Myocardial perfusion imaging is normal with no evidence or fixed or reversible perfusion defects. Moderately reduced global LV function? with resting left ventricular EF of 33%, and post stress LVEF 36%. LV size moderately dilated. No evidence of transient ischemic dilation. Hospitalization for CHF exacerbation: Oct 2023 at [facility] Last Assessment & Plan: - Reviewed [...] Psoriatic arthritis 06/04/2012 Overview (03/26/2025): Followed by [facility] Rheum - Dr. Garcia Med therapy: DMARD, Derik Previous tx: methotrexate and Enbrel (hx of failed Humira tx in Rheum note 02/04/21). Plan to hold methotrexate with hx cardiac conditions Obstructive sleep apnea syndrome 06/04/2012 Overview (03/26/2025): Following with [facility] - Dr. Balbir Don Cont w/ CPAP, [...] to 49 Years) Discontinued 06/28/2018, 09/30/2008 Insurance [facility] ([id number]) [facility] ([id number]) Care Teams Journeyman Painter Relationship Specialty Start Date End Date Marilee Cordero FNP [address] [place] [address] PCP - General 01/08/24
--- OUTSIDE RECORDS SUMMARY | 2025-08-25 16:13 | XMS_ITS | Encounter Summary ---
Author Organization [employer] Address [address] [place] [address] 7t [place] [address] Care Team Providers Care Embossing Machine Operator Name Role Phone Marilee Cordero MANAGER E [employer] Primary Care Provider [phone] Cristo Garcia MD Unavailable Yoselyn Lyons Unavailable Unavailable Balbir Don Unavailable Lindsay Nur PharmD Unavailable [phone] Meño Butcher MD Unavailable [phone] Reason for Referral * Consultation (Routine) - Authorized Specialty Diagnoses / Procedures Referred By Contac t Referred To Contact Pharmacy Diagnoses Diabetic macular edema (HCC) Primary hypertension Jamaica Roman MD [address] [place] [address] Phone: tel: fax: Referral ID Status Reason Start Date Expiration Date Visits Requested Visits Authorized [id number] Authorized Consult and Treat 08/25/2025 08/25/2026 6 6 Encounter Details Date Type Department Care Team (Late st Contact Info) Description 08/25/2025 Orders Only [facility] [address] [place], [place] [phone] Jamaica Roman MD [address] [place], [place] [phone] Diabetic macular edema (HCC) (Primary Dx); Primary hypertension Social History Tobacco Use Types Packs/Day Years [...] Description 09/05/2025 1:00 PM EST Medication Management [facility] [address] [place] [address] Lindsay Nur, PharmD [address] [place] [address] Scheduled Referrals Name Type Priority Associated Diagnoses Orde r Schedule Referral to Pharmacy CDTM Outpatient Referral Routine Diabetic macular edema (HCC) Primary hypertension Ordered: 08/25/2025 documented as of this encounter Visit Diagnoses Diagnosis Diabetic macular edema (HCC)- Primary Primary hypertension Unspecified essential hypertension documented in this encounter Additional Health Concerns Assessment Noted Time PHQ-9 Depression Total Score: 13 025 8:59 AM EDT documented as of this encounter Care Teams Embossing Machine Operator Relationship Specialty Start Date End Date Marilee Cordero FNP [address] [place] [address] PCP - General Family Medicine 03/23/23 Cristo Garcia MD [address] [place] [address] Rheumatology 09/01/24 Yoselyn Lyons 180 [place] [address] Ophthalmology 09/01/24 Balbir Don 22 [facility] 301 [place] [address] Sleep Medicine 09/01/24 Lindsay Nur PharmD [address] [place] [address] Pharmacist Pharmacy 05/29/25 Meño Butcher MD [address] [place] [address] 3rd [place] [address] Cardiology 07/06/25 Dr. Ramirez 100 [facility] 200 [place] [address] Nephrology 09/01/24 documented as of this encounter
--- OUTSIDE RECORDS SUMMARY | 2025-08-25 16:13 | XMS_ITS | Encounter Summary ---
Author Organization [employer] Address 75 [facility] 7t [place] [address] Care Team Providers Care Tool Machinist Name Role Phone Marilee Cordero Primary Care Provider [phone] Cristo Garcia MD Unavailable Doris Candelario Unavailable [phone] Yoselyn Lyons Unavailable Unavailable Balbir Don Unavailable Lindsay NurD Unavailable [phone] Meño Butcher MD Unavailable [phone] Reason for Visit * Reason Onset Date Comments Hospital Follow-up 03/17/2025 Encounter Details Date Type Department Care Team (Late st Contact Info) Description 03/17/2025 Telephone [facility] [address] [place] [address] Marilee Cordero FNP [address] [place], [place] [phone] Hospital Follow-up Social History Tobacco Use Types [...] from pt requesting a HDF appt. [place] [facility] Date of admission: 03/11/25 Discharge date: 03/15/25 Diagnosed: Leg pain and goes up to back *Send message to Noman Clinical Care Coordinators documented in this encounter Plan of Treatment Upcoming Encounters Date Type Department Care Team (Late st Contact Info) Description 09/05/2025 1:00 PM EST Medication Management [facility] [address] [place] [address] Lindsay Nur, PharmD [address] [place] [address] documented as of this encounter Visit Diagnoses Not on filedocumented in this encounter Additional Health Concerns Assessment Noted Time PHQ-9 Depression Total Score: 13 025 8:59 AM EDT documented as of this encounter Care Teams Tool Machinist Relationship Specialty Start Date End Date Marilee Cordero FNP [address] [place] [address] PCP - General Family Medicine 03/23/23 Cristo Garcia MD [address] [place] [address] [address] [place] [address] Rheumatology 09/01/24 Doris Candelario [address] [place] [address] Cardiology 09/01/24 07/05/25 Yoselyn Lyons 180 [place] [address] Ophthalmology 09/01/24 Balbir Don 22 [facility] 301 [place] [address] Sleep Medicine 09/01/24 Lindsay Nru PharmD 230 [place] [address] Pharmacist Pharmacy 05/29/25 Meño Butcher MD [address] [place] [address] 3rd [place] [address] Cardiology 07/06/25 Dr. Ramirez 100 [facility] 200 [place] [address] Nephrology 09/01/24 [facility] 03/18/25 05/04/25 documented as of this encounter
--- OUTSIDE RECORDS SUMMARY | 2025-08-25 16:13 | XMS_ITS | Clinical Summary ---
Author Organization [facility] [place] [address] Phone Care Team Providers Care Merchant Mariner Name Role Phone Physician, Pcp Unknown Primary [...] - 06/07/2025 2:36 PM EDT Hospital Encounter [facility] Unit [address] [place] [address] Bayron Hester MD Shapiro, Benjamin, [...] (hyper tension) DM2 (diabetes mellitus, type 2) ([facility] V24, [facility] V28) 06/04/2012 DX:DM2 (diabetes mellitus, t ype 2) ([facility]) Obstructive sleep apnea 06/04/2012 DX:Obstr uctive sleep apnea Psoriatic arthritis ([facility] V24, [facility] V28) 06/04/2012 DX:Psoriatic arthritis ([facility]) Hyperlipidemia 06/04/2012 DX:Hyperlipidemi a; COMMENT: IMO update [...] Heart attack Other cousins with fa [place]'s 40's Asthma Sister Relation Name Status Comments [...] 19+ 3-dose series) 1989 09/27/2005, 05/31/2005, 03/24/2005 RSV Immunization Adult Patients (1 - Risk 50-74 years 1-dose series) 2020 Diabetes: Annual Urine Albumin-Creatinine Ratio (uACR) 10/12/2022 [...] of4 resultswithin the time period is included. [facility] Glucose POCT 271(H) 70 - 100 mg/dL 06/07/2025 11:44 AM EDT [facility] Blood Capillary blood specimen / Unknown 06/07/2025 11:44 AM EDT 06/07/2025 11:45 AM EDT Corey Willingham MD LAB POINT O F CARE TEST DOCKED DEVICE UNSOLICITED RESULTS Final Result [facility] [address] [place] [address], [place] [phone] * Troponin I high sensitivity (06/07/2025 5:51 AM EDT) Only the most recent of4 resultswithin the time period is included. [facility] High Sensitivity Troponin I 38 <=79 ng/L LAB CHEMISTRY METHOD 06/07/2025 6:58 AM EDT [facility] Blood Venous blood specimen / Unknown Venipuncture / Unknown 06/07/2025 5:51 AM EDT 06/07/2025 6:22 AM EDT Narrative [facility] - 06/07/2025 6:58 AM EDT High levels of biotin in samples may falsely decrease hsTroponin values. Use caution when interpreting hsTroponin results in patients taking biotin who exhibit renal impairment (eGFR <60) or in patients taking more than 20 mg/day of biotin. us Hyacinth DORSEY LAB BLOOD ORDERABLES Final R esult [facility] [address] [place] [address], [place] [phone] * (ABNORMAL) Complete blood count (06/07/2025 5:51 AM EDT) [facility] WBC 5.7 4.8 - 10.8 K/mcL LAB HEMETOLOGY METHOD 06/07/2025 8:00 AM [facility] RBC 5.00 4.50 - 5.50 M/mcL LAB HEMETOLOGY METHOD 06/07/2025 8:00 AM [facility] Hemoglobin 13.6 13.5 - 17.5 g/dL LAB HEMETOLOGY METHOD 06/07/2025 8:00 AM [facility] Hematocrit 41.7(L) 42.0 - 54.0 % LAB HEMETOLOGY METHOD 06/07/2025 8:00 AM [facility] MCV 84.2 79.0 - 98.0 FL LAB HEMETOLOGY METHOD 06/07/2025 8:00 AM [facility] MCH 27.5 27.0 - 32.0 pcg LAB HEMETOLOGY METHOD 06/07/2025 8:00 AM [facility] MCHC 32.6 32.0 - 37.0 g/dL LAB HEMETOLOGY METHOD 06/07/2025 8:00 AM [facility] RDW 13.6 11.0 - 15.0 % LAB HEMETOLOGY METHOD 06/07/2025 8:00 AM [facility] Platelets 243 130 - 400 K/mcL LAB HEMETOLOGY METHOD 06/07/2025 8:00 AM EDT [facility] MPV 9.7 7.0 - 11.0 FL LAB HEMETOLOGY METHOD 06/07/2025 8:00 AM EDT [facility] NRBC 0.0 <1.0 % LAB HEMETOLOGY METHOD 06/07/2025 8:00 AM EDT [facility] NRBC Absolute 0.00 <0.10 K/mcL LAB HEMETOLOGY METHOD 06/07/2025 8:00 AM EDT [facility] Blood Venous blood specimen / Unknown Venipuncture / Unknown 06/07/2025 5:51 AM EDT 06/07/2025 6:23 AM EDT Hyacinth DORSEY LAB BLOOD ORDERABLES Final R esult [facility] [address] [place] [address], [place] [phone] * (ABNORMAL) Magnesium (06/07/2025 5:51 AM EDT) Magnesium 2.7(H) 1.9 - 2.6 mg/dL LAB CHEMISTRY METHOD 06/07/2025 6:58 AM EDT [facility] Blood Venous blood specimen / Unknown Venipuncture / Unknown 06/07/2025 5:51 AM EDT 06/07/2025 6:23 AM EDT Hyacinth DORSEY LAB BLOOD ORDERABLES Final R esult [facility] [address] [place] [address], [place] [phone] * (ABNORMAL) Basic metabolic panel (06/07/2025 5:51 AM EDT) Only the most recent of2 resultswithin the time period is included. Sodium 139 133 - 145 mmol/L LAB CHEMISTRY METHOD 06/07/2025 6:58 AM [facility] Potassium 3.6 3.5 - 5.5 mmol/L LAB CHEMISTRY METHOD 06/07/2025 6:58 AM [facility] Chloride 99 96 - 110 mmol/L LAB CHEMISTRY METHOD 06/07/2025 6:58 AM [facility] CO2 35(H) 21 - 32 mmol/L LAB CHEMISTRY METHOD 06/07/2025 6:58 AM [facility] Anion Gap 5 3 - 11 LAB CHEMISTRY METHOD 06/07/2025 6:58 AM [facility] Glucose 200(H) 70 - 100 mg/dL LAB CHEMISTRY METHOD 06/07/2025 6:58 AM [facility] BUN 29(H) 5 - 25 mg/dL LAB CHEMISTRY METHOD 06/07/2025 6:58 AM [facility] Creatinine 1.20 0.70 - 1.30 mg/dL LAB CHEMISTRY METHOD 06/07/2025 6:58 AM [facility] eGFR 71 >=60 mL/min/1. 73m2 LAB CHEMISTRY METHOD 06/07/2025 6:58 AM [facility] Comment:Calculation based on the Chronic Kidney Disease Epidemiology Collaboration (CKD-EPI) equation refit without adjustment for race. BUN/Creatinine Ratio 24.2 LAB CHEMISTRY METHOD 06/07/2025 6:58 AM [facility] Calcium 9.2 8.5 - 10.5 mg/dL LAB CHEMISTRY METHOD 06/07/2025 6:58 AM [facility] Blood Venous blood specimen / Unknown Venipuncture / Unknown 06/07/2025 5:51 AM EDT 06/07/2025 6:23 AM EDT us Hyacinth DORSEY LAB BLOOD ORDERABLES Final R esult [facility] [address] [place] [address], [place] [phone] * SST tube (06/06/2025 7:06 PM EDT) Pathologist [facility] Extra Tube Hold for add-ons. 06/06/2025 9:01 PM EDT [facility] Comment:Auto resulted. Blood Venous blood specimen / Unknown 06/06/2025 7:06 PM EDT 06/06/2025 7:26 PM EDT us Danny Larose DO LAB BLOOD ORDERABLES Final R esult Performing Organization Address [facility] Co de Phone Number [facility] [address] [place] [address], [place] [phone] * Light blue tube (06/06/2025 7:06 PM EDT) [facility] Extra Tube Hold for add-ons. 06/06/2025 9:01 PM EDT [facility] Comment:Auto resulted. Blood Venous blood specimen / Unknown 06/06/2025 7:06 PM EDT 06/06/2025 7:26 PM EDT us Danny Larose DO LAB BLOOD ORDERABLES Final R esult Performing Organization Address City/[facility]/ZIP Co de Phone Number [facility] [address] [place] [address], [place] [phone] * Respiratory virus panel molecular study (06/06/2025 3:52 PM EDT) Pathologist [facility] Adenovirus Detection by PCR Not Detected Not Detected LAB MICROBIOLOGY METHOD 06/06/2025 5:19 PM EDT [facility] Influenza A PCR Not Detected Not Detected LAB MICROBIOLOGY METHOD 06/06/2025 5:19 PM EDT [facility] Influenza B PCR Not Detected Not Detected LAB MICROBIOLOGY METHOD 06/06/2025 5:19 PM EDT [facility] Coronavirus 229E Not Detected Not Detected LAB MICROBIOLOGY METHOD 06/06/2025 5:19 PM EDT [facility] Coronavirus HKU1 Not Detected Not Detected LAB MICROBIOLOGY METHOD 06/06/2025 5:19 PM EDT [facility] Coronavirus OC43 Not Detected Not Detected LAB MICROBIOLOGY METHOD 06/06/2025 5:19 PM EDT [facility] Coronavirus NL63 Not Detected Not Detected LAB MICROBIOLOGY METHOD 06/06/2025 5:19 PM EDT [facility] Parainfluenza Virus 1 Not Detected Not Detected LAB MICROBIOLOGY METHOD 06/06/2025 5:19 PM EDT [facility] Parainfluenza Virus 2 Not Detected Not Detected LAB MICROBIOLOGY METHOD 06/06/2025 5:19 PM EDT [facility] Parainfluenza Virus 3 Not Detected Not Detected LAB MICROBIOLOGY METHOD 06/06/2025 5:19 PM EDT [facility] Parainfluenza Virus 4 Not Detected Not Detected LAB MICROBIOLOGY METHOD 06/06/2025 5:19 PM EDT [facility] RSV PCR Not Detected Not Detected LAB MICROBIOLOGY METHOD 06/06/2025 5:19 PM EDT [facility] Human Metapneumovirus A and B Not Detected Not Detected LAB MICROBIOLOGY METHOD 06/06/2025 5:19 PM EDT [facility] Rhinovirus/Entero virus Not Detected Not Detected LAB MICROBIOLOGY METHOD 06/06/2025 5:19 PM EDT [facility] Bordetella pertussis Not Detected Not Detected LAB MICROBIOLOGY METHOD 06/06/2025 5:19 PM EDT [facility] Bordetella parapertussis Not Detected Not Detected LAB MICROBIOLOGY METHOD 06/06/2025 5:19 PM EDT [facility] Mycoplasma pneumo by PCR Not Detected Not Detected LAB MICROBIOLOGY METHOD 06/06/2025 5:19 PM EDT [facility] Chlamydia pneumoniae Not Detected Not Detected LAB MICROBIOLOGY METHOD 06/06/2025 5:19 PM EDT [facility] SARS COV-2 Not Detected Not Detected LAB MICROBIOLOGY METHOD 06/06/2025 5:19 PM EDT [facility] Swab Both anterior nares / Unknown Non-blood Collection / Unknown 06/06/2025 3:52 PM EDT 06/06/2025 4:14 PM EDT Narrative [facility] - 06/06/2025 5:19 PM EDT Testing was performed using the [employer] Respiratory Pathogen PCR Assay. All results must [...] MICROBIOLOGY - GENERAL O RDERABLES Final Result [facility] [address] [place] [address], * CT Angio Chest wo and/or w [...] Signed Date: 06/06/2025 15:19 ET Workstation ID: [id number] Transcribed By: Self Edit Transcribed Date: 06/06/2025 [...] Signed Date: 06/06/2025 15:19 ET Workstation ID: [id number] Transcribed By: Self Edit Transcribed Date: 06/06/2025 15:12 ET Bayron Hester MD IMG CT PROCEDURES Final Res ult * D-dimer, quantitative (06/06/2025 11:48 AM EDT) D-Dimer, Quant (D-DU) 191 <=230 ng/mL DDU LAB COAGULATION METHOD 06/06/2025 12:27 PM EDT [facility] Blood Venous blood specimen / Unknown Venipuncture / Unknown 06/06/2025 11:48 AM EDT 06/06/2025 12:15 PM EDT Narrative [facility] - 06/06/2025 12:27 PM EDT D-Dimer <230 ng/mL (D-Dimer units) is the threshold for exclusion of DVT/PE. D-Dimer may be elevated in: Critically ill, severely infected, trauma patients, DIC, acute CVA, acute [place], unstable angina, AF, old age, , and smoking. D-Dimer may be decreased with: Initiation of heparin therapy and oral anticoagulants. Bayron Hester MD LAB BLOOD ORDERABLES Final Result [facility] [address] [place] [address], * XR Chest 1 View (06/06/2025 11:04 AM EDT) Anatomical Region Laterality Modality Body Radiographic Aleida ging 06/06/2025 11:0 7 AM EDT Impressions 06/06/2025 11:08 AM EDT No acute pulmonary disease. Pulmonary vascular congestion consistent with congestive heart failure has resolved since 02/15/2025. Cardiomegaly is stable. Code 66345 -------- FINAL REPORT -------- Dictated By: Ceasar Lopez Dictated Date: 06/06/2025 11:07 ET Assigned Physician: Ceasar Lopez Reviewed and Electronically Signed By: Ceasar Lopez Signed Date: 06/06/2025 11:08 ET Workstation ID: [id number] Transcribed By: Self Edit Transcribed Date: 06/06/2025 [...] has resolved since 02/15/2025. Cardiomegaly isstable. Code 08192 -------- FINAL REPORT -------- Dictated By: Ceasar Lopez Dictated Date: 06/06/2025 11:07 ET Assigned Physician: Ceasar Lopez Reviewed and Electronically Signed By: Ceasar Lopez Signed Date: 06/06/2025 11:08 ET Workstation ID: [id number] Transcribed By: Self Edit Transcribed Date: 06/06/2025 11:07 ET us Bayron Hester MD IMG XR PROCEDURES Final Res ult * ECG 12 lead (06/06/2025 10:54 AM EDT) Ventricular Rate ECG 65 BPM GEMUSE Atrial Rate 65 BPM GEMUSE P-R Interval 144 ms GEMUSE QRS Duration 78 ms GEMUSE Q-T Interval 438 ms GEMUSE QTc 455 ms GEMUSE P Wave [place] 26 degrees GEMUSE R [place] 4 degrees GEMUSE T [place] 116 degrees GEMUSE ECG Interpretation Normal sinus [...] K/mcL LAB [facility] RBC 5.40 4.50 - 5.50 M/mcL LAB HEMETOLOGY METHOD 06/06/2025 10:58 AM EDT [facility] Hemoglobin 15.3 13.5 - 17.5 g/dL LAB HEMETOLOGY METHOD 06/06/2025 10:58 AM [facility] Hematocrit 44.2 42.0 - 54.0 % LAB HEMETOLOGY METHOD 06/06/2025 10:58 AM EDT [facility] MCV 81.4 79.0 - 98.0 FL LAB HEMETOLOGY METHOD 06/06/2025 10:58 AM [facility] MCH 28.2 27.0 - 32.0 pcg LAB HEMETOLOGY METHOD 06/06/2025 10:58 AM [facility] MCHC 34.6 32.0 - 37.0 g/dL LAB HEMETOLOGY METHOD 06/06/2025 10:58 AM [facility] RDW 13.2 11.0 - 15.0 % LAB HEMETOLOGY METHOD 06/06/2025 10:58 AM [facility] Platelets 230 130 - 400 K/mcL LAB HEMETOLOGY METHOD 06/06/2025 10:58 AM [facility] MPV 9.7 7.0 - 11.0 FL LAB HEMETOLOGY METHOD 06/06/2025 10:58 AM [facility] NRBC 0.0 <1.0 % LAB HEMETOLOGY METHOD 06/06/2025 10:58 AM [facility] NRBC Absolute 0.00 <0.10 K/[facility] LAB HEMETOLOGY METHOD 06/06/2025 10:58 AM [facility] Neutrophils Relative 80.0 % LAB HEMETOLOGY METHOD 06/06/2025 10:58 AM [facility] Lymphocytes Relative 10.3 % LAB HEMETOLOGY METHOD 06/06/2025 10:58 AM [facility] Monocytes Relative 7.7 % LAB HEMETOLOGY METHOD 06/06/2025 10:58 AM [facility] Eosinophils Relative 1.2 % LAB HEMETOLOGY METHOD 06/06/2025 10:58 AM [facility] Basophils Relative 0.4 % LAB HEMETOLOGY METHOD 06/06/2025 10:58 AM [facility] Immature Granulocytes Relative 0.4 % LAB HEMETOLOGY METHOD 06/06/2025 10:58 AM [facility] Neutrophils Absolute 5.54 1.50 - 7.00 K/mcL LAB HEMETOLOGY METHOD 06/06/2025 10:58 AM [facility] Lymphocytes Absolute 0.71(L) 1.00 - 5.00 K/mcL LAB HEMETOLOGY METHOD 06/06/2025 10:58 AM EDT [facility] Monocytes Absolute 0.53 0.20 - 1.00 K/mcL LAB HEMETOLOGY METHOD 06/06/2025 10:58 AM EDT [facility] Eosinophils Absolute 0.08 0.00 - 0.50 K/[facility] LAB HEMETOLOGY METHOD 06/06/2025 10:58 AM EDT [facility] Basophils Absolute 0.03 0.00 - 0.20 K/[facility] LAB HEMETOLOGY METHOD 06/06/2025 10:58 AM EDT [facility] Immature Granulocytes Absolute 0.03 0.00 - 0.03 K/mcL LAB HEMETOLOGY METHOD 06/06/2025 10:58 AM EDT [facility] Blood Venous blood specimen / Unknown Venipuncture / Unknown 06/06/2025 10:42 AM EDT 06/06/2025 10:50 AM EDT Bayron Hester MD LAB BLOOD ORDERABLES Final Result Performing Organization Address City/[facility]/ZIP Co de Phone Number [facility] [address] [place] [address], [place] [phone] * B-type natriuretic peptide (06/06/2025 10:42 AM EDT) BNP 92 <=100 pcg/mL LAB CHEMISTRY METHOD 06/06/2025 11:29 AM EDT [facility] Blood Venous blood specimen / Unknown Venipuncture / Unknown 06/06/2025 10:42 AM EDT 06/06/2025 10:50 AM EDT Bayron Hester MD LAB BLOOD ORDERABLES Final Result [facility] [address] [place] [address], [place] [phone] * Serum albumin (06/06/2025 10:42 AM EDT) [facility] Albumin 3.2 3.2 - 5.0 g/dL LAB CHEMISTRY METHOD 06/06/2025 2:58 PM EDT [facility] Blood Venous blood specimen / Unknown Venipuncture / Unknown 06/06/2025 10:42 AM EDT 06/06/2025 10:50 AM EDT Hyacinth DORSEY LAB BLOOD ORDERABLES Final R esult [facility] [address] [place] [address], [place] [phone] * Hepatitis C antibody (02/16/2025 2:00 PM EDT) [facility] Hepatitis C Antibody Negative Negative LAB CHEMISTRY METHOD 02/16/2025 5:37 PM EDT [facility] Blood Venous blood specimen / Unknown Venipuncture / Unknown 02/16/2025 2:00 PM EDT 02/16/2025 2:05 PM EDT Ish David MD LAB BLOOD ORDERABLES Final Res ult Performing Organization Address [facility]/ZIP Co de Phone Number [facility] [address] [place] [address], [place] [phone] from Last 3 Months or Most Recently Relevant to Health Maintenance Insurance [facility] [employer] Advance Directives * Full [...] currently active code status orders. Care Teams Merchant Mariner Relationship Specialty Start Date End Date Physician, Pcp Unknown PCP - General 05/01/25
--- OUTSIDE RECORDS SUMMARY | 2025-08-25 16:13 | XMS_ITS | Clinical Summary ---
Author Organization [employer] Address [address] [facility] 7t [place] [address] Care Team Providers Care Extension Agent Name Role Phone Marilee Cordero BRANDEN Primary Care Provider [phone] Cristo Garcia MD Unavailable Yoselyn Lyons Unavailable Unavailable Balbir Don Unavailable Lindsay Nur PharmD Unavailable [phone] Meño Butcher MD Unavailable [phone] Allergies No known active allergies Medications Blood Pressure kit Use daily Active Blood Glucose Monitoring Suppl (FreeStyle [place] Lite) w/Device kit 1 each by Other [...] Date Hematuria 04/29/2025 Overview (07/06/2025): Following with [facility] Urology - Dr. Cramer Assessment & Plan [...] UA, confirmed with send out Following with [facility] Urology Diabetic polyneuropathy asso ciated with type [...] Followed by [facility] - Dr. James Hogan 10mg daily Psoriatic arthritis ([facility]/HCC) 08/30/2024 Overview (04/01/2025): Followed by [facility] Rheum - Dr. Garcia Med therapy: DMARD [...] failure 11/26/2023 Overview (07/06/2025): Previously following with [facility], established with [facility] - Dr. Butcher April: Nuclear stress test: [...] Hospitalization for CHF exacerbation: Oct 2023 at [facility] - Reviewed condition and concerning signs/symptoms Pharmacotherapy: Aspirin 81mg daily Atorvastatin 40mg nightly Furosemide 40mg BID (RX nephrology) Spironolactone 25mg daily (RX cards) Jardiance 25mg daily Carvedilol 6.25mg BID Entresto 24-26mg BID Assessment & Plan (04/01/2025 7:07 PM EDT): Follow-up with [facility] as scheduled in April 2025. Reports they are already on wait list in case anything sooner becomes available. Assessment & Plan (01/27/2025 9:50 AM EDT): Cont current therapy, symptomatic SOB/BELL Referral to [facility] for further eval Assessment & Plan [...] following with renal for proteinuria -Established with [facility] CDTM Assessment & Plan (04/01/2025 7:01 PM EDT): - Initial BG reading [facility]. Repeat value [facility] s/p 10 units lispro. Re-check #3 resulted 436 s/p second dose of 10 units insulin lispro. Pt unable to void for UA. Discussed ED precautions. - Previous rx of Jardiance 10mg daily (rx through [employer] - unclear if currently taking) - No [...] initially [facility] in office, continued to be [facility] s/p 10 units lispro subcutaneous. After 2nd [...] tx in Rheum note 02/04/21) -Re-established with [facility] Rheum Nov 2021, last consult appt December 2023 Plan to hold methotrexate with hx cardiac conditions Taltz injections through Rheum with notable improvement Assessment & Plan (03/03/2024 2:42 PM EDT): -Previous tx with methotrexate and Enbrel (hx of failed Humira tx in Rheum note 02/04/21) -Re-established with [facility] Rheum Nov 2021, last consult appt December 2023 Plan to hold methotrexate with hx cardiac conditions Authorization for Taltz is pending Assessment & Plan (08/11/2023 1:16 PM EDT): -Previous tx with methotrexate and Enbrel (hx of failed Humira tx in Rheum note 02/04/21) -Re-established with [facility] Rheum Nov 2021 Says may have re-started on methotrexate but unsure. Will bring med list to next appt. -Pt was also referred to [facility] Derm Team, appt pending Assessment & Plan (04/12/2023 1:37 PM EDT): -Previous tx with methotrexate and Enbrel (hx of failed Humira tx in Rheum note 02/04/21) -Re-established with [facility] Rheum Nov 2021 Says may have re-started on methotrexate but unsure. Will bring med list to next appt. -Pt was also referred to [facility] Derm Team, appt pending Assessment & Plan (10/20/2022 9:18 AM EST): -Previous tx with methotrexate and Enbrel (hx of failed Humira tx in Rheum note 02/04/21) -Reports has not been taking any meddications for psoriasis in > 6 month, interested in re-establishing with specialists -Upcoming appt with [facility] Rheum Nov 2021 -Pt was also referred to [facility] Derm Team, appt pending Hypertension 06/13/2012 [...] reporting intermittent discomfort with mask Referral to [facility] Sleep Medicine for further eval and management Resolved Problems Problem Noted Date Diagnosed Date Resolved Date Retention of urine 02/26/2015 Elevated levels of transamin ase & lactic acid dehydrogenase 08/14/2012 10/20/2022 Encounters Date Type Department Care Team Description 08/25/2025 Orders Only [facility] [address] [place] [address] Jamaica Roman MD Diabetic macular edema (HCC) (Primary Dx); Primary hypertension 08/20/2025 Telephone [facility] [address] [place] [address] Lindsay Nur, Charisse 07/08/2025 Results Follow-Up [facility] [address] [place] [address] Marilee Cordero FNP Lipid Panel, Standard, Vitamin B12/Folate, Serum Panel, Methylmalonic Acid 07/04/2025 8:30 AM EDT Office Visit [facility] [address] [place] [address] Marilee Cordero FNP Type 2 diabetes mellitus [...] Generic External Data 07/04/2025 Travel 07/03/2025 Telephone [facility] [address] [place] [address] Marilee Cordero FNP chart prep 06/26/2025 Travel 05/29/2025 Travel from Last 3 Months Immunizations Immunization [...] the past 12 months, has t he [employer], gas, oil or water company threatened to [...] Description 09/05/2025 1:00 PM EST Medication Management [facility] [address], [place] [phone] Lindsay Nur PharmD [address] [place] [address] Health Maintenance Due Date Last Done Comments [...] 08/12/2024 08/11/20, 01/07/2014, 10/01/2010, Additional history exists Diabetes: Urine [...] Associated Diagnosis Comments SED RATE BY MODIFIED URSZULAERGREN Routine 07/04/2025 10:07 AM EDT C-REACTIVE PROTEIN Routine 07/04/2025 10 :07 AM EDT COMPREHENSIVE METABOLIC PANEL Routine 07/04/2025 10:07 AM EDT CBC WITH AUTO DIFFERENTIAL Routine 07/04/2025 10:07 AM EDT VITAMIN B12/FOLATE, SERUM PANEL Routine 07/04/2025 10:07 AM EDT Type 2 diabetes mellitus with hyperglycemia, with long-term current use of insulin ([facility]) METHYLMALONIC ACID Routine 07/04/2025 10 :07 AM [...] Vitamin B12 237 200 - 900 pg/mL [facility] Comment:NORMAL 200-900 PG/ML INDETERMINATE 160-199 PG/ML DEFICIENT < 160 PG/ML Folate 9.4 > or = 4.0 ng/mL [facility] Comment:Reference Values:> o r = 4.0 ng/mL< 4.0 ng/mL suggests folate deficiency Methotrexate, aminopterin and folinic acid(leucovorin) are chemotherapeutic agents whose molecularstructures are similar to folate; therefore, the Architectfolate assay cannot be used for patients using these drugs. Blood Venous blood specimen / Unknown 07/04/2025 10:07 AM EDT 07/04/2025 11:47 AM EDT Marilee Cordero DRYING MACHINE RECEIVER LAB BLOOD ORDERABLES Final Res ult [facility] [address], [place] [phone] * (ABNORMAL) CBC auto differential (07/04/2025 10:07 AM EDT) White Blood Count 6.5 4.8 - 10.8 X10*3/uL [facility] Red Blood Count 4.74 4.60 - 5.80 X10*6/uL [facility] Hemoglobin 13.7(L) 14.0 - 18.0 g/dl [facility] Hematocrit 39.5(L) 42.0 - 52.0 % [facility] Mean Corpuscular Volume 83.3 80.0 - 98.0 fL [facility] Mean Corpuscular Hemoglobin 28.9 27.0 - 33.0 pg [facility] Mean Corpuscular HGB Conc 34.7 31.0 - 36.0 g/dl [facility] Red Cell Distribution Width 12.9 11.0 - 16.0 % [facility] Platelet Count 186 160 - 400 X10*3/uL [facility] Mean Platelet Volume 9.4 9.4 - 12.4 fL [facility] Neutrophils Percent Auto 80.1(H) 45 - 73 % [facility] Imm Gran Pct Auto 0.3 0.0 - 0.4 % [facility] Lymphocytes Percent Auto 7.8(L) 20 - 40 % [facility] Monocytes Percent Auto 9.5 2 - 11 % [facility] Eosinophils Percent Auto 1.8 0 - 4 % [facility] Basophils Percent Auto 0.5 0 - 2 % [facility] NRBC Pct Auto 0.0 0.0 - 0.2 /100WBC [facility] Neutrophils Absolute Auto 5.2 2.0 - 8.3 x10*3/uL [facility] Imm Gran Abs Auto 0.02 0.00 - 0.03 X10*3/uL [facility] Lymphocytes Absolute Auto 0.5(L) 1.2 - 4.9 X10*3/uL [facility] Monocytes Absolute Auto 0.6 0.1 - 1.2 X10*3/uL [facility] Eosinophils Absolute Auto 0.1 0.0 - 0.4 X10*3/uL [facility] Basophils Absolute Auto 0.0 0.0 - 0.2 X10*3/uL [facility] NRBC Abs Auto 0.000 0.0 - 0.012 X10*3/uL [facility] 07/04/2025 10:0 7 AM EDT 07/04/2025 11:47 AM EDT us Generic External Data Provider LAB BLOOD ORDERAB LES Final Result [facility] [address] [place] [phone] * Methylmalonic Acid (07/04/2025 10:07 AM EDT) Methylmalonic Acid 225 55 - 335 nmol/L [facility] Comment: Serum methylmalonic acid (MMA) [...] outcomes,such as neural tube defects and intrauterine growthrestriction.[employer] utilized Multi-Modal Decomposition(MMD) analysis to establish first and second trimester-specific MMA reference intervals in , as givenbelow:MMA, First trimester (<13 wks gestation): 58-167 nmol/LMMA, Second trimester (13-23 wks gestation):63-241 nmol/LThis test was developed and its analytical performancecharacteristics have been determined by [employer]. It has not been cleared or approved by theA. This assay has been validated pursuant to the CLIAregulations and is used for clinical purposes.THIS TEST WAS PERFORMED AT:[id number] [place] [address]NQFXJESEDWIN RANDHAWA MD,PHD Blood Venous blood specimen / Unknown 07/04/2025 10:07 AM EDT 07/04/2025 11:47 AM EDT Marilee Cordero DRYING MACHINE RECEIVER LAB BLOOD ORDERABLES Final Res ult Performing Organization Address [facility] [place] [facility] Co de Phone Number [facility] [address] [place] [phone] * (ABNORMAL) Sed Rate by Modified Urszulaergren (07/04/2025 10:07 AM EDT) Erythrocyte Sedimentation Rate 28(H) 0 - 15 MM/HR [facility] Comment:Patients with polycy themia and many hemoglobin abnormalitiesmay have depressed sed rates whereas patients with anemiamay have elevated sed rates. 07/04/2025 10:0 7 AM EDT 07/04/2025 11:47 AM EDT Generic External Data Provider LAB BLOOD ORDERAB LES Final Result Performing Organization Address [facility] Co de Phone Number [facility] [address] [place] [phone] * C-reactive Protein (07/04/2025 10:07 AM EDT) C Reactive Protein 0.10 < or = 0.50 mg/dL [facility] 07/04/2025 10:0 7 AM EDT 07/04/2025 11:47 AM EDT us Generic External Data Provider LAB BLOOD ORDERAB LES Final Result [facility] [address] [place] [phone] * (ABNORMAL) Lipid Panel, Standard (07/04/2025 10:07 AM EDT) Triglycerides 129 <150 mg/dL [facility] Comment:Desirable Triglyceri de: less than 150 mg/dLBorderline High Triglyceride 150-199 mg/dLHigh Triglyceride: 200-499 mg/dLVery High Triglyceride: greater than or equal to 5OO mg/dL Cholesterol 158 <200 mg/dL [facility] Comment:Desirable Cholestero l: less than 200 mg/dLBorderline High Cholesterol: 200-239 mg/dLHigh Cholesterol: greater than 239 mg/dL LDL Cholesterol Calculated 104(H) <100 mg/dL [facility] Comment:Desirable LDL: less than 100 mg/dLNear Optimal/Above Optimal LDL: 110- 129 mg/dLBorderline High LDL: 130-159 mg/dLHigh LDL: 160-189 mg/dLVery High LDL: greater than or equal to 190 mg/dL HDL Cholesterol 29(L) >40 mg/dL [facility] Comment:Desirable HDL: great er than 40 mg/dL Note: This HDL assay may give artificially low results in patients with liver disease. Blood Venous blood specimen / Unknown 07/04/2025 10:07 AM EDT 07/04/2025 11:47 AM EDT us Marilee Cordero DRYING MACHINE RECEIVER LAB BLOOD ORDERABLES Final Res ult [facility] [address] [place] [phone] * (ABNORMAL) Comprehensive Metabolic Panel (07/04/2025 10:07 AM EDT) Sodium 143 135 - 145 mmol/L [facility] Potassium 4.6 3.3 - 5.1 mmol/L [facility] Chloride 109(H) 96 - 108 mmol/L [facility] Carbon Dioxide 28 22 - 29 mmol/L [facility] Anion Gap 11(L) 12 - 20 [facility] Urea Nitrogen (BUN) 23(H) 9 - 16 mg/dL [facility] Creatinine, Serum 0.96 0.5 - 1.4 mg/dL [facility] Estimated Glomerular Filt Rate >60 [facility] Comment:Chronic Kidney Disea se: Estimated GFR < 60 mL/min/1.49t6Fiyrmz Kidney Disease: Estimated GFR < 15 mL/min/1.73m2 Glucose 135(H) 60 - 115 mg/dL [facility] Calcium 9.2 8.4 - 10.2 mg/dL [facility] Bilirubin, Total 0.8 0.0 - 1.0 mg/dL [facility] Aspartate Amino Transferase 25 5 - 37 U/L [facility] Alanine Aminotransferase 27 0 - 40 U/L [facility] Total Protein 6.4(L) 6.5 - 8.0 g/dL [facility] Albumin Level 3.8 3.5 - 5.0 g/dL [facility] Alkaline Phosphatase 60 39 - 117 U/L [facility] 07/04/2025 10:0 7 AM EDT 07/04/2025 11:47 AM EDT us Generic External Data Provider LAB BLOOD ORDERAB LES Final Result [facility] [address] [place] [phone] * (ABNORMAL) POCT A1c (06/26/2025 1:35 PM EDT) Hemoglobin A1C 10.8(A) 4.0 - 5.7 % QC Media Lot # [id number] Lot# Expiration Date Blood 06/26/2025 1:35 PM EDT us Marilee Phalen DRYING MACHINE RECEIVER POINT OF CARE TEST ENTER/EDIT ORDERABLES Final Result * Hepatitis Panel, General (02/26/2025 7:32 AM EDT) Hepatitis A IgM Nonreactive Nonreactive [facility] Comment:IgM antibodies to GIBSON V not detected; does not exclude earlyacute or recovered HAV infection. ~Hepatitis B Surface Antibody NONREACTIVE Nonreactive [facility] Comment:Nonreactive: < 8.00 mIU/mL Hepatitis B Core Antibody Nonreactive Nonreactive [facility] Hepatitis C Antibody Nonreactive Nonreactive [facility] Comment:Antibodies to HCV no t detected; does not exclude early acuteHCV infection. Hepatitis B Surface Ag Negative Negative [facility] 02/26/2025 7:32 AM EDT 02/26/2025 7:32 AM EDT Generic External Data Provider LAB BLOOD ORDERAB LES Final Result Performing Organization Address [facility] [place] [facility] Co de Phone Number [facility] [address] [place] [address] [phone] * (ABNORMAL) Albumin, Random Urine W/Creatinine (12/25/2023 9:50 AM EST) Creatinine, Urine 162.10 mg/dL [facility] Microalbumin Urine >2,000.0 mg/L [facility] Microalbum Creatinine Ratio Ur 1,233.8(H ) <30 ug/mg cr [facility] Comment:Albumin/Creatinine R atio Reference Ranges: Normal: < 30 ug/mg creatinine Microalbuminuria: 30 - 300 ug/mg creatinineClinical Albuminuria: > 300 ug/mg creatinine Urine 12/25/2023 9:50 AM EST 12/25/2023 2:38 PM EST Marilee Cordero DRYING MACHINE RECEIVER LAB URINE ORDERABLES Final Res ult Performing Organization Address [facility] Co de Phone Number [facility] [address] [place] [phone] * HIV-1/2 Antigen and Antibodies, Fourth Generation, with Reflexes (09/13/2023 7:53 AM EST) HIV AB/AG Nonreactive Nonreactive [facility] Comment:HIV-1 p24 Ag and/or HIV-1/HIV-2 Ab not detected.A test result that is nonreactive does not exclude thepossibility of exposure to or infection with HIV-1 and/orHIV-2. Nonreactive results in this assay for individualswith prior exposure to HIV-1 and/or HIV-2 may be due toantigen and antibody levels that are below the limit ofdetection of this assay.The [employer] HIV Ag/Ab Combo assay result andsupplemental assay results should be interpreted inconjunction with the patient's clinical presentation,history and other laboratory results. If the results areinconsistent with clinical evidence, additional testing issuggested to confirm the result. Blood Venous blood specimen / Unknown 09/13/2023 7:53 AM EST 09/13/2023 7:53 AM EST us Marilee Cordero [facility] LAB BLOOD ORDERABLES Final Res ult [facility] [address] [place] [phone] from Last 3 Months or Most Recently Relevant to Health Maintenance Insurance [facility] - HSN PARTIAL (MEDICAID) Care Teams Extension Agent Relationship Specialty Start Date End Date Marilee Cordero FNP [address] [place] [address] PCP - General Family Medicine 03/23/23 Cristo Garcia MD [address] [place] [phone] Rheumatology 09/01/24 Yoselyn Lyons [address] [place] [address] Ophthalmology 09/01/24 Balbir Don 22 [facility] [address] [place] [address] Sleep Medicine 09/01/24 Lindsay Nur PharmD [address] [place] [address] Pharmacist Pharmacy 05/29/25 Meño Butcher MD [address] [place] [address] 3rd [place] [address] Cardiology 07/06/25 Dr. Ramirez [address] [place] [address] [address] [place] [phone] Nephrology 09/01/24
--- OUTSIDE RECORDS SUMMARY | 2025-08-25 16:13 | XMS_ITS | Encounter Summary ---
Author Organization [employer] Address [address] [facility] 7t [place] [address] Care Team Providers Care Correctional Captain Name Role Phone Marilee Cordero PHYSICIAN OFFICE REP Primary Care Provider [phone] Cirsto Garcia MD Unavailable Doris Candelario Unavailable [phone] Yoselyn Lyons Unavailable Unavailable Balbir Don Unavailable Lindsay NurD Unavailable [phone] Meño Butcher MD Unavailable [phone] Encounter Details Date Type Department Care Team (Late st Contact Info) Description 08/11/2023 Abstract [facility] [address] [place], [place] [phone] Gavino Lacey, DIANA [address] [place], [place] [phone] Social History Tobacco Use Types Packs/Day Years [...] Description 09/05/2025 1:00 PM EST Medication Management [facility] [address] [place] [address] Lindsay Nur, PharmD [address] [place] [address] documented as of this encounter Visit Diagnoses Not on filedocumented in this encounter Additional Health Concerns Assessment Noted Time PHQ-9 Depression Total Score: 1 10/17/20 22 10:05 AM EST documented as of this encounter Care Teams Correctional Captain Relationship Specialty Start Date End Date Marilee Cordero FNP [address] [place] [address] PCP - General Family Medicine 03/23/23 Cristo Garcia MD [address] [place] [address] [place] [address] Rheumatology 09/01/24 Doris Candelario [address] [place] [address] Cardiology 09/01/24 07/05/25 Yoselyn Lyons [address] [place] [address] Ophthalmology 09/01/24 Balbir Don 22 [facility] [address] [place] [address] Sleep Medicine 09/01/24 Lindsay Nur PharmD [address] [place] [address] Pharmacist Pharmacy 05/29/25 Meño Butcher MD 11 [facility] 3rd [place] [address] Cardiology 07/06/25 Dr. Ramirez 100 [facility] [address] [place] [address] Nephrology 09/01/24 [facility] 03/18/25 05/04/25 documented as of this encounter
--- OUTSIDE RECORDS SUMMARY | 2025-08-25 16:13 | XMS_ITS | Encounter Summary ---
Author Organization [employer] Address 75 [facility] 7t [place] [address] Care Team Providers Care Technician Biological Health Name Role Phone Marilee Cordero BRANDEN Primary Care Provider [phone] Cristo Garcia MD Unavailable Yoselyn Lyons Unavailable Unavailable Balbir Don Unavailable Lindsay uNr PharmD Unavailable [phone] Meño Butcher MD Unavailable [phone] Encounter Details Date Type Department Care Team (Late st Contact Info) Description 08/20/2025 Telephone [facility] [address] [place], [place] [phone] Lindsay Nur, PharmD [address] [place], [place] [phone] Social History Tobacco Use Types Packs/Day Years [...] encounter Miscellaneous Notes * Telephone Encounter - Lindsay Nur PharmD - 08/20/2025 4:26 PM EDT PCP referred for CDTM. Requesting updated referral from supervising physician per [place] requirements, thank you! documented in this encounter Plan of Treatment Upcoming Encounters Date Type Department Care Team (Late st Contact Info) Description 09/05/2025 1:00 PM EST Medication Management [facility] [address] [place] [address] Lindsay Nur PharmD [address] [place] [address] documented as of this encounter Visit Diagnoses Not on filedocumented in this encounter Additional Health Concerns Assessment Noted Time PHQ-9 Depression Total Score: 13 025 8:59 AM EDT documented as of this encounter Care Teams Technician Biological Health Relationship Specialty Start Date End Date Marilee Cordero FNP [address] [place] [address] PCP - General Family Medicine 03/23/23 Cristo Garcia MD [address] [place] [address] Rheumatology 09/01/24 Yoselyn Lyons [address] [place] [address] Ophthalmology 09/01/24 Balbir Don 22 [facility] [address] [place] [address] Sleep Medicine 09/01/24 Lindsay Nur PharmD [address] [place] [address] Pharmacist Pharmacy 05/29/25 Meño Butcher MD [address] [place] [address] 3rd [place] [address] Cardiology 07/06/25 Dr. Ramirez 100 [facility] 200 [place] [phone] Nephrology 09/01/24 documented as of this encounter
--- OUTSIDE RECORDS SUMMARY | 2025-08-25 16:13 | XMS_ITS | Encounter Summary ---
Author Organization [employer] Address 75 [facility] 7t [place] [address] Care Team Providers Care Weapons System Instrument Mechanic Name Role Phone Marilee Cordero HEAD OF COMMISSION DEPARTMENT Primary Care Provider [phone] Cristo Garcia MD Unavailable Doris Candelario Unavailable [phone] Yoselyn Lyons Unavailable Unavailable Balbir Don Unavailable Lindsay NurD Unavailable [phone] Meño Butcher MD Unavailable [phone] Reason for Visit * Reason Comments Med Refill Encounter Details Date Type Department Care Team (Late st Contact Info) Description 07/23/2023 Refill [facility] [address] [place] [address] Donavan Mcgee AGNP Social History Tobacco Use [...] Department Care Team (Late Contact Info) Description 09/05/2025 1:00 PM EST Medication Management [facility] [address] [place] [address] Lindsay Nur PharmD [address] [place] [address] documented as of this encounter Visit Diagnoses Not on filedocumented in this encounter Additional Health Concerns Assessment Noted Time PHQ-9 Depression Total Score: 1 10/17/20 22 10:05 AM EST documented as of this encounter Care Teams Weapons System Instrument Mechanic Relationship Specialty Start Date End Date Marilee Cordero FNP [address] [place] [address] PCP - General Family Medicine 03/23/23 Cristo Garcia MD [address] [place] [address] Rheumatology 09/01/24 Doris Candelario [address] [place] [address] Cardiology 09/01/24 07/05/25 Yoselyn Lyons [address] [place] [address] Ophthalmology 09/01/24 Balbir Don 22 [facility] 301 [place] [address] Sleep Medicine 09/01/24 Lindsay Nur, PharmD [address] [place] [address] Pharmacist Pharmacy 05/29/25 Meño Butcher MD [address] [place] [address] 3rd [place] [address] Cardiology 07/06/25 Dr. Ramirez [address] [place] [address] [address] [place] [phone] Nephrology 09/01/24 Noman LEWISA 03/18/25 05/04/25 documented as of this encounter
== END 2025-08-25 12:49 | disposition home or self-care (01) ==
LOC: HO.NEURO 12:48
PROVIDERS: PCP Registered Nurse; Visit Provider Registered Nurse
DX: R20.0 Anesthesia of skin (principal); R20.2 Paresthesia of skin
CPT/HCPCS: 95886; 95913

== ENCOUNTER → 2025-08-25 13:04 | Outpatient (BNV) | payer OTHER, SELFPAY | PROVIDERS: PCP Registered Nurse; Visit Provider Psychiatry & Neurology Neurology | DX: G62.89 Other specified polyneuropathies (principal) | CPT/HCPCS: 95886; 95913 ==

== ENCOUNTER 2025-08-29 14:01 | Outpatient (AMB) | payer OTHER, SELFPAY ==
--- OUTSIDE RECORDS SUMMARY | 2018-07-03 09:45 | XMS_ITS | Continuity of Care Document ---
Author Organization [facility] vices Address [address] [place] [address] Phone Care Team Providers Care Auditor/Quality Name Role Phone Unavailable Unavailable Unavailable Procedures Procedure Date Psychotherapy, 30 Minutes With Patient S Psych Dx Eval Psychotherapy, 30 Minutes With Patient A Advance Directives Directive Yes / No Effective Date File Name No Information Encounters Encounter Description Practice Location Reason(s) For Visit Diagnoses Date Provider Providers Copied on Encounter Psychotherap y, 30 Minutes With Patient [facility], [address] [place] [address], tel:[phone] [facility] Behavioral Health Individual Therapy (chief complaint) Cannabis use, unspecified, uncomplicatedC ocaine use, unspecified, uncomplicatedM ajor depressive disorder, recurrent, mildPost-traum atic stress disorder, unspecified Sep-0 8 No Information Psych Dx Eval [facility], [address] [place] [address], [facility], tel:[phone] [facility] Behavioral Health Initial Assessment (chief complaint) Major depressive disorder, recurrent, mildPost-traum atic stress disorder, unspecifiedCoc norman use, unspecified, uncomplicatedC annabis use, unspecified, uncomplicated May- 8 No Information Psychotherap y, 30 Minutes With Patient [facility], [address] [place] [address], tel:[phone] [facility] Behavioral Health depression (chief complaint) Major depressive disorder, recurrent, mildPost-traum atic stress disorder, unspecified May-2 8 No Information Family History Family Member Type Diagnosis Age At Onset No Information Payers Payer name Insurance type Covered democrat ID Authoriza tiluiz(s) BRII Alonso [id number] Social History Type Description Quantity Date Captured [...]
[2025-08-29 14:24] VITALS: BP 126/72; PULSE 71; O2SAT 95; BMI 33.8
--- NOTE | 2025-08-29 14:24 | A.OFFVIS_ITS ---
Vital Signs 08/29/25 14:24 Height 6 ft Weight 249 lb 1.957 oz BMI 33.8 BP 126/72 Blood Pressure Location Lt brachial Position Sitting Pulse 71 Pulse Source Pulse Oximeter Pulse Oximetry (%) 95 Oxygen Delivery Method Room Air Intake Visit Reasons: PsA Intake Note: Patient presents for PsA and lab results follow up. Collections Representative Required: Yes Collections Representative Language: Professor Of Marketing Name: Juliet [id number] Accompanied by: Spouse Allergies No Known Allergies Allergy (Verified 08/29/25 14:30) Medication List - Last Reconciled 08/29/25 by Jeanie Patel MD acetaminophen 650 mg PO TID PRN aspirin 81 mg PO DAILY atorvastatin 40 mg PO BEDTIME carvedilol 6.25 mg PO BID empagliflozin (Jardiance) 10 mg PO DAILY furosemide (Lasix) 80 mg PO BID ixekizumab (Taltz Autoinjector) 80 mg subcut Q4W metformin ER 500 mg PO BID sacubitril-valsartan 49-51 mg (Entresto) 1 tab PO BID spironolactone 25 mg PO DAILY tamsulosin 0.4 mg PO QPM HPI Comments Details: Patient is a 55-year-old male with hyperlipidemia, diabetes, hypertension c/b HFrEF, 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 Has been having health issues including heart issues. Recently hospitalized at [facility] for HF exacerbation - Patient currently not on any DMARD medications - Denies prolonged AM stiffness but has significant psoriatic plaques - Due to significant PsO, he was restarted on Taltz Today - On Ixekizumab 80mg SC every 4 weeks - PsO much improved - No PsA sx Rheumatologic History: Methotrexate - failed Enbrel - failed Humira - failed Taltz - effective but lost to follow up Initial history: This is a 52-year-old male with past medical history of hypertension, diabetes, dyslipidemia, psoriasis, psoriatic arthritis who presents for evaluation of psoriatic arthritis. Patient was on methotrexate and Enbrel and his psoriasis and psoriatic arthritis were relatively well controlled. He has not received Enbrel for 3 years. He previously failed Humira. His last dose of methotrexate was 8 months ago. He states that his psoriasis has come back over his body and is quite itchy. He also has chronic low back pain, mentions history of sciatica. He states that his back pain is almost all day. Is not always worse in the morning. He also has diffuse pain in his hands, wrists, ankles. He was admitted 2 months ago for a diabetic foot infection. Current Rheumatology Medication(s): Ixekizumab 80mg SC every 4 weeks [facility] Medical History Dyspnea on minimal exertion Pulmonary hypertension Dyspnea on exhalation RAKAN (obstructive sleep apnea) CHF (congestive heart failure) Psoriasis Psoriatic arthritis Hypercholesteremia Lumbago with sciatica, right side Elev transaminase/LDH Neuropathy Diabetes Psoriasis Family History Father Diabetes HTN (hypertension) Mother Diabetes Social History Household Members: Spouse Housing: House Do you presently have visiting nurse or other home services: No Alcohol intake: never Patient Tobacco Use Status: Never used Tobacco e-Cigarette/Vaping Use: Never Used service: No Current occupational status: employed Current occupation: [employer] Review of Systems Narrative Review of Systems Constitutional: Denies fever, chills, weight loss ENT: Denies vision changes, eye pain or eye redness, dental caries, dry mouth GI: Denies nausea, vomiting, diarrhea, abdominal pain, change in BM Pulm: Denies SOB, BELL, hemoptysis, wheezing Cards: Denies chest pain, palpitations Skin: Denies Raynaud's, rash, nail changes, photosensitivity, [employer] 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 Well appearing and in no apparent painful distress MSK Hands * Right Hand: Able to make a fist. No swelling or tenderness to palpation of the MCPs, PIPs or DIPs. * Left Hand: Able to make a fist. No swelling or tenderness to palpation of the MCPs, PIPs or DIPs. TTP of the 5th MCP Wrists * Right Wrist: Full ROM to flexion and extension. No swelling or TTP * Left Wrist: Full ROM to flexion and extension. No swelling or TTP Elbows * Right Elbow: Full ROM. No swelling or TTP. No TTP of the medial epicondyle. No TTP of the lateral epicondyle * Left Elbow: Full ROM. No swelling or TTP. No TTP of the medial epicondyle. No TTP of the lateral epicondyle Shoulders * Right shoulder: Full ROM. No swelling noted. No TTP of the AC joint. No TTP of the subacromial bursa. No TTP of the posterior shoulder * Left shoulder: Full ROM. No swelling noted. No TTP of the AC joint. No TTP of the subacromial bursa. No TTP of the posterior shoulder Knees * Right knee: No swelling noted. No TTP of the knee joint line. No TTP of pes anserine bursa * Left knee: No swelling noted. No TTP of the knee joint line. No TTP of pes anserine bursa. Ankles * Right ankle: Good ankle dorsiflexion and plantar flexion. No swelling. No TTP of the ankle joint * Left ankle: Good ankle dorsiflexion and plantar flexion. No swelling. No TTP of the ankle joint Feet * Right foot: Negative squeeze test * Left foot: Negative squeeze test Tender points? * No tenderness to palpation of the bilateral trapezius, supraspinatus, anterior costochondral junctions, bilateral suboccipital muscle insertions LE bilateral pitting edema SKIN PSO rash noted to elbows, gaiter region of ankle and scalp Vital Signs: Last Vital Signs Pulse 71 08/29/25 14:24 BP 126/72 08/29/25 14:24 Pulse Ox 95 08/29/25 14:24 Oxygen Delivery Method Room Air 08/29/25 14:24 BMI result Body Mass Index 33.8 Results Reviewed Results Reviewed: Laboratory Tests 03/11/25 07/04/25 16:31 10:07 WBC 6.5 RBC 4.74 D Hgb 13.7 L D Hct 39.5 L D Plt Count 186 ESR 28 H Sodium 143 Potassium 4.6 D Chloride 109 H Carbon Dioxide 28 BUN 23 H Creatinine 0.96 AST 25 ALT 27 C-Reactive Protein 3.41 H 0.10 Laboratory Tests 02/26/25 07:32 Hepatitis A IgM Ab Nonreactive Hep Bs Antigen Negative Hep Bs Antibody NONREACTIVE Hep B Core Total Ab Nonreactive Hepatitis C Ab (EIA) Nonreactive TB Test (T-Spot) Com Negative Assessment & Plan Assessment & Plan (1) Psoriatic arthritis: Comment: Methotrexate - failed Enbrel - failed Humira - failed Taltz - effective but lost to follow up Code(s): L40.50 - Arthropathic psoriasis, unspecified Category: Medical Plan: #PsO/PsA Patient is a 55-year-old male with psoriasis complicated by psoriatic arthritis here today for follow up. Improved PsO and stable PsA Plan - Taltz SC 80 mg every 4 weeks - RTC 4 months - Labs before visit: CBC, CMP, ESR, CRP (2) Long-term current use of ixekizumab: Code(s): Z79.620 - rn long term care (current) use of immunosuppressive biologic Plan: #rn long term care treatment with IL 17 inhibitors (Taltz) Risks and benefits of IL 17 inhibitors discussed with the patient. ?Risks include infections, injection site reactions, activation of inflammatory bowel disease. Benefits include improved disease activity. Discussed with patient that if she is feeling sick or having flu-like symptoms she is to hold the medication that week and resolved the following week. Plan I spent 30 minutes reviewing the record and labs, taking a history, examining the patient, discussing the treatment plan, ordering diagnostic work up and documenting in the medical record Orders: Orders Complete Blood Count Auto Diff 4 Months Z79.899 - Other long term acute care registered nurse (current) drug therapy C Reactive Protein 4 Months Z79.899 - Other long term acute care registered nurse (current) drug therapy Erythrocyte Sedimentation Rate 4 Months Z79.899 - Other long term acute care registered nurse (current) drug therapy Comprehensive Met. Panel 4 Months Z79.899 - Other [facility] (current) drug therapy Medications: Refilled ixekizumab (Taltz Autoinjector) 80 mg subcut Q4W 1 mL 5RF L40.50 - Arthropathic psoriasis, unspecified Coding Level of Care Code Est Pt Level 4 (82668) Complex EM visit Add On G2211 Diagnoses Psoriatic arthritis L40.50 Long-term current use of ixekizumab Z79.620
--- OUTSIDE RECORDS SUMMARY | 2025-08-29 14:50 | XMS_ITS | Encounter Summary ---
Author Organization [employer] Address [address] [place] [address] [address] [place] [address] Care Team Providers Care Procurement Intern Name Role Phone Marilee Cordero CHAPLAIN RESIDENT Primary Care Provider [phone] Cristo Garcia MD Unavailable Yoselyn Lyons Unavailable Unavailable Balbir Don Unavailable Lindsay Nur PharmD Unavailable [phone] Meño Butcher MD Unavailable [phone] Reason for Referral * Consultation (Routine) - Authorized Specialty Diagnoses / Procedures Referred By Contac t Referred To Contact Pharmacy Diagnoses Diabetic macular edema (HCC) Primary hypertension Jamaica Roman MD [address] [place] [address] Phone: tel: fax: Referral ID Status Reason Start Date Expiration Date Visits Requested Visits Authorized [id number] Authorized Consult and Treat 08/25/2025 08/25/2026 6 6 Encounter Details Date Type Department Care Team (Late st Contact Info) Description 08/25/2025 Orders Only [facility] [address] [place], [place] [phone] Jamaica Roman MD [address] [place], [place] [phone] Diabetic macular edema (HCC) (Primary Dx); Primary [...] is your housing situation today? I have lcayton sanchez 08/30/[address] you [...] Care Team (Late st Contact Info) Description 09/01/2025 3:15 PM EST Telemedicine [facility] [address] [place] [address] Marilee Cordero FNP [address] [place] [address] 09/05/2025 1:00 PM EST Medication Management [facility] [address] [place] [address] Lindsay Nur PharmD [address] [place] [address] Scheduled Referrals Name Type Priority Associated Diagnoses [...] documented as of this encounter Care Teams Procurement Intern Relationship Specialty Start Date End Date Marilee Cordero FNP [address] [place] [address] PCP - General Family Medicine 03/23/23 Cristo Garcia MD [address] [place] [address] [address] [place] [address] Rheumatology 09/01/24 Yoselyn Lyons [address] [place] [address] Ophthalmology 09/01/24 Balbir Don 22 [facility] [address] [place] [address] Sleep Medicine 09/01/24 Lindsay Nur, PharmD [address] [place] [address] Pharmacist Pharmacy 05/29/25 Meño Butcher MD 11 [facility] 3rd [place] [address] Cardiology 07/06/25 Dr. Ramirez 100 [facility] 200 [place] [address] Nephrology 09/01/24 documented as of this encounter
--- OUTSIDE RECORDS SUMMARY | 2025-08-29 14:50 | XMS_ITS | Encounter Summary ---
Author Organization [employer] Address [address] [place] [address] [address] [place] [address] Care Team Providers Care Economist Research Assistant Name Role Phone Marilee Cordero Primary Care Provider [phone] Cristo Garcia MD Unavailable Doris Candelario Unavailable [phone] Yoselyn Lyons Unavailable Unavailable Balbir Don Unavailable Lindsay Nur PharmD Unavailable [phone] Meño Butcher MD Unavailable [phone] Reason for Referral * Consultation (Routine) - Closed Specialty Diagnoses / Procedures Referred By Contzena t Referred To Contact Nephrology Diagnoses Albuminuria Marilee Cordero FNP [address] [place] [address] Phone: tel: fax: Bayron Marshall MD 100 [facility] [address] [place] [address] Phone: tel: fax: Referral ID Status Reason Start Date Expiration Date V isits Requested Visits Authorized [id number] Closed Specialty Services Required 12/29/2023 12/28/2024 1 1 Encounter Details Date Type Department Care Team (Late st Contact Info) Description 12/29/2023 Orders Only [facility] MED & PEDS [address] [place], [place] [phone] Marilee Cordero FNP [address] [place], [place] [phone] Albuminuria (Primary Dx) Social History Tobacco Use [...] Info) Description 09/01/2025 3:15 PM EST Telemedicine [facility] [address] [place] [address] Marilee Cordero FNP [address] [place] [address] 09/05/2025 1:00 PM EST Medication Management [facility] [address] [place] [address] Lindsay Nur PharmD [address] [place] [address] documented as of this encounter Procedures Procedure [...] documented as of this encounter Care Teams Economist Research Assistant Relationship Specialty Start Date End Date Marilee Cordero FNP [address] [place] [address] PCP - General Family Medicine 03/23/23 Cristo Garcia MD [address] [place] [address] [address] [place] [address] Rheumatology 09/01/24 Doris Candelario [address] [place] [address] Cardiology 09/01/24 07/05/25 Yoselyn Lyons [address] [place] [address] Ophthalmology 09/01/24 Balbir Don 22 [facility] 301 [place] [address] Sleep Medicine 09/01/24 Lindsay Nur, Charisse [address] [place] [address] Pharmacist Pharmacy 05/29/25 Meño Butcher MD [address]rd [place] [address] Cardiology 07/06/25 Dr. Ramirez 100 [facility] [address] [place] [id number] Nephrology 09/01/24 [facility] 03/18/25 05/04/25 documented as of this encounter
--- OUTSIDE RECORDS SUMMARY | 2025-08-29 14:50 | XMS_ITS | Encounter Summary ---
Author Organization [employer] Address [address] [facility] 7t [place] [address] Care Team Providers Care Dialysis Patient Care Technician Name Role Phone Marilee Cordero SENIOR IT RECRUITER Primary Care Provider Cristo Garcia MD Unavailable Doris Candelario Unavailable [phone] Yoselyn Lyons Unavailable Unavailable Balbir Don Unavailable Lindsay NurD Unavailable [phone] Meño Butcher MD Unavailable [phone] Encounter Details Date Type Department Care Team (Late st Contact Info) Description 08/11/2023 Abstract [facility] [address] [place], [place] [phone] Gavino Lacey, DIANA [address] [place], [place] [phone] Social History Tobacco Use Types Packs/Day Years [...] Info) Description 09/01/2025 3:15 PM EST Telemedicine [facility] MED & PED[facility] [address] [place] [address] Marilee Cordero FNP [address] [place] [address] 09/05/2025 1:00 PM EST Medication Management [facility] [address] [place] [address] Lindsay Nur, PharmD [address] [place] [address] documented as of this encounter Visit Diagnoses Not on filedocumented in this encounter Additional Health Concerns Assessment Noted Time PHQ-9 Depression Total Score: 1 10/17/20 22 10:05 AM EST documented as of this encounter Care Teams Dialysis Patient Care Technician Relationship Specialty Start Date End Date Marilee Cordero FNP [address] [place] [address] PCP - General Family Medicine 03/23/23 Cristo Garcia MD [address] [place] [address] [place] [address] Rheumatology 09/01/24 Doris Candelario [address] [place] [address] Cardiology 09/01/24 07/05/25 Ysoelyn Lyons [address] [place] [address] Ophthalmology 09/01/24 Balbir Don 22 [facility] 301 [place] [address] Sleep Medicine 09/01/24 Lindsay Nur PharmD [address] [place] [address] Pharmacist Pharmacy 05/29/25 Meño Butcher MD [address] [place] [address] 3rd [place] [address] Cardiology 07/06/25 Dr. Ramirez 100 [facility] 200 [place] [address] Nephrology 09/01/24 [facility] 03/18/25 05/04/25 documented as of this encounter
--- OUTSIDE RECORDS SUMMARY | 2025-08-29 14:50 | XMS_ITS | Clinical Summary ---
Author Organization [employer] Address [address] [facility] 7t [place] [address] Care Team Providers Care Mexican Food Maker Hand Name Role Phone Marilee Cordero BRANDEN Primary Care Provider [phone] Cristo Garcia MD Unavailable Yoselyn Lyons Unavailable Unavailable Balbir Don Unavailable Lindsay Nur PharmD Unavailable [phone] Meño Butcher MD Unavailable [phone] Allergies No known active allergies Medications Blood Pressure kit Use daily Active Blood Glucose Monitoring Suppl (FreeStyle Newell Lite) w/Device kit 1 each by Other [...] Date Hematuria 04/29/2025 Overview (07/06/2025): Following with [facility] Urology - Dr. Cramer Assessment & Plan [...] UA, confirmed with send out Following with [facility] Urology Diabetic polyneuropathy asso ciated with type [...] Followed by [facility] - Dr. James Hogan 10mg daily Psoriatic arthritis ([facility]/HCC) 08/30/2024 Overview (04/01/2025): Followed by [facility] Rheum - Dr. Garcia Med therapy: DMARD [...] failure 11/26/2023 Overview (07/06/2025): [facility], established with [facility] - Dr. Butcher April: Nuclear stress test: [...] CHF exacerbation: Oct 2023 at [facility] - Reviewed condition and concerning signs/symptoms Pharmacotherapy: Aspirin 81mg daily Atorvastatin 40mg nightly Furosemide 40mg BID (RX nephrology) Spironolactone 25mg daily (RX cards) Jardiance 25mg daily Carvedilol 6.25mg BID Entresto 24-26mg BID Assessment & Plan (04/01/2025 7:07 PM EDT): Follow-up with [facility] as scheduled in April 2025. Reports they are already on wait list in case anything sooner becomes available. Assessment & Plan (01/27/2025 9:50 AM EDT): Cont current therapy, symptomatic SOB/BELL Referral to [facility] for further eval Assessment & Plan [...] following with renal for proteinuria -Established with [facility] CDTM Assessment & Plan (04/01/2025 7:01 PM EDT): - Initial BG reading [facility]. Repeat value [facility] s/p 10 units lispro. Re-check #3 resulted 436 s/p second dose of 10 units insulin lispro. Pt unable to void for UA. Discussed ED precautions. - Previous rx of Jardiance 10mg daily (rx through Sales Department Clerk - unclear if currently taking) - No [...] initially [facility] in office, continued to be [facility] s/p 10 units lispro subcutaneous. After [...] tx in Rheum note 02/04/21) -Re-established with [facility] Rheum Nov 2021, last consult appt December 2023 Plan to hold methotrexate with hx cardiac conditions Taltz injections through Rheum with notable improvement Assessment & Plan (03/03/2024 2:42 PM EDT): -Previous tx with methotrexate and Enbrel (hx of failed Humira tx in Rheum note 02/04/21) -Re-established with [facility] Rheum Nov 2021, last consult appt December 2023 Plan to hold methotrexate with hx cardiac conditions Authorization for Taltz is pending Assessment & Plan (08/11/2023 1:16 PM EDT): -Previous tx with methotrexate and Enbrel (hx of failed Humira tx in Rheum note 02/04/21) -Re-established with [facility] Rheum Nov 2021 Says may have re-started on methotrexate but unsure. Will bring med list to next appt. -Pt was also referred to [facility] Derm Team, appt pending Assessment & Plan (04/12/2023 1:37 PM EDT): -Previous tx with methotrexate and Enbrel (hx of failed Humira tx in Rheum note 02/04/21) -Re-established with [facility] Rheum Nov 2021 Says may have re-started on methotrexate but unsure. Will bring med list to next appt. -Pt was also referred to [facility] Derm Team, appt pending Assessment & Plan (10/20/2022 9:18 AM EST): -Previous tx with methotrexate and Enbrel (hx of failed Humira tx in Rheum note 02/04/21) -Reports has not been taking any meddications for psoriasis in > 6 month, interested in re-establishing with specialists -Upcoming appt with [facility] Rheum Nov 2021 -Pt was also referred to [facility] Derm Team, appt pending Hypertension 06/13/2012 [...] reporting intermittent discomfort with mask Referral to [facility] Sleep Medicine for further eval and management Resolved Problems Problem Noted Date Diagnosed Date Resolved Date Retention of urine 02/26/2015 3 Elevated levels of transamin ase & lactic acid dehydrogenase 08/14/2012 10/20/2022 Encounters Date Type Department Care Team Description 08/26/2025 Telephone [facility] MED & PEDS [address] [place] [address] Marilee Cordero FNP Transition Of Care (Tcm) 08/25/2025 Orders Only [facility] MED & PEDS [address] [place] [address] Jamaica Roman MD Diabetic macular edema (HCC) (Primary Dx); Primary hypertension 08/20/2025 Telephone [facility] MED & PEDS [address] [place] [address] Lindsay Nur, Charisse 07/08/2025 Results Follow-Up [facility] MED & PEDS [address] [place] [address] Marilee Cordero FNP Lipid Panel, Standard, Vitamin B12/Folate, Serum Panel, Methylmalonic Acid 07/04/2025 8:30 AM EDT Office Visit [facility] MED & PEDS [address] [place] [address] Marilee Cordero FNP Type 2 diabetes mellitus [...] Generic External Data 07/04/2025 Travel 07/03/2025 Telephone [facility] MED & PEDS [address] [place] [address] Marilee Cordero FNP chart prep 06/26/2025 Travel [...] Info) Description 09/01/2025 3:15 PM EST Telemedicine [facility] MED & PEDS [address] [place] [address] Marilee Cordero, MUTUEL TELLER [address] [place] [address] 09/05/2025 1:00 PM EST Medication Management [facility] MED & PEDS [address] [place] [address] Lindsay Nur, PharmD [address] [place] [address] Health Maintenance Due Date Last Done Comments [...] Vitamin B12 237 200 - 900 pg/mL [facility] Comment:NORMAL 200-900 PG/ML INDETERMINATE 160-199 PG/ML DEFICIENT < 160 PG/ML Folate 9.4 > or = 4.0 ng/mL [facility] Comment:Reference Values:> o r = 4.0 ng/mL< 4.0 ng/mL suggests folate deficiency Methotrexate, aminopterin and folinic acid(leucovorin) are chemotherapeutic agents whose molecularstructures are similar to folate; therefore, the Architectfolate assay cannot be used for patients using these drugs. Blood Venous blood specimen / Unknown 07/04/2025 10:07 AM EDT 07/04/2025 11:47 AM EDT Marilee Cordero MUTUEL TELLER LAB BLOOD ORDERABLES Final Res ult [facility] [address] [place] [phone] * (ABNORMAL) CBC auto differential (07/04/2025 10:07 AM EDT) Pathologist [facility] White Blood Count 6.5 4.8 - 10.8 X10*3/uL [facility] Red Blood Count 4.74 4.60 - 5.80 X10*6/uL [facility] Hemoglobin 13.7(L) 14.0 - 18.0 g/dl [facility] Hematocrit 39.5(L) 42.0 - 52.0 % [facility] Mean Corpuscular Volume 83.3 80.0 - 98.0 fL [facility] Mean Corpuscular Hemoglobin 28.9 27.0 - 33.0 pg [facility] Mean Corpuscular HGB Conc 34.7 31.0 - 36.0 g/dl [facility] Red Cell Distribution Width 12.9 11.0 - 16.0 % [facility] Platelet Count 186 160 - 400 X10*3/uL [facility] Mean Platelet Volume 9.4 9.4 - 12.4 fL [facility] Neutrophils Percent Auto 80.1(H) 45 - 73 % [facility] Imm Gran Pct Auto 0.3 0.0 - 0.4 % [facility] Lymphocytes Percent Auto 7.8(L) 20 - 40 % [facility] Monocytes Percent Auto 9.5 2 - 11 % [facility] Eosinophils Percent Auto 1.8 0 - 4 % [facility] Basophils Percent Auto 0.5 0 - 2 % [facility] NRBC Pct Auto 0.0 0.0 - 0.2 /100WBC [facility] Neutrophils Absolute Auto 5.2 2.0 - 8.3 x10*3/uL [facility] Imm Gran Abs Auto 0.02 0.00 - 0.03 X10*3/uL [facility] Lymphocytes Absolute Auto 0.5(L) 1.2 - 4.9 X10*3/uL [facility] Monocytes Absolute Auto 0.6 0.1 - 1.2 X10*3/uL [facility] Eosinophils Absolute Auto 0.1 0.0 - 0.4 X10*3/uL [facility] Basophils Absolute Auto 0.0 0.0 - 0.2 X10*3/uL [facility] NRBC Abs Auto 0.000 0.0 - 0.012 X10*3/uL [facility] 07/04/2025 10:0 7 AM EDT 07/04/2025 11:47 AM EDT us Generic External Data Provider LAB BLOOD ORDERAB LES Final Result [facility] [address] [place] [address] [phone] * Methylmalonic Acid (07/04/2025 10:07 AM EDT) Methylmalonic Acid 225 55 - 335 nmol/L [facility] Comment: Serum methylmalonic acid (MMA) [...] outcomes,such as neural tube defects and intrauterine growthrestriction.[employer] utilized Multi-Modal Decomposition(MMD) analysis to establish first and second trimester-specific MMA reference intervals in , as givenbelow:MMA, First trimester (<13 wks gestation): 58-167 nmol/LMMA, Second trimester (13-23 wks gestation):63-241 nmol/LThis test was developed and its analytical performancecharacteristics have been determined by [employer]. It has not been cleared or approved by theA. This assay has been validated pursuant to the CLIAregulations and is used for clinical purposes.THIS TEST WAS PERFORMED AT:[id number] [place] [address]OSREPBAEDWIN RANDHAWA MD,PHD Blood Venous blood specimen / Unknown 07/04/2025 10:07 AM EDT 07/04/2025 11:47 AM EDT us Marilee Cordero MUTUEL TELLER LAB BLOOD ORDERABLES Final Res ult Performing Organization Address City/[facility]/ZIP Co de Phone Number [facility] [address] [place] [phone] * (ABNORMAL) Sed Rate by Modified Westergren (07/04/2025 10:07 AM EDT) Erythrocyte Sedimentation Rate 28(H) 0 - 15 MM/HR [facility] Comment:Patients with polycy themia and many hemoglobin abnormalitiesmay have depressed sed rates whereas patients with anemiamay have elevated sed rates. 07/04/2025 10:0 7 AM EDT 07/04/2025 11:47 AM EDT us Generic External Data Provider LAB BLOOD ORDERAB LES Final Result [facility] [address] [place] [address] [phone] * C-reactive Protein (07/04/2025 10:07 AM EDT) C Reactive Protein 0.10 < or = 0.50 mg/dL [facility] 07/04/2025 10:0 7 AM EDT 07/04/2025 11:47 AM EDT us Generic External Data Provider LAB BLOOD ORDERAB LES Final Result Performing Organization Address [facility] Co de Phone Number [facility] [address] [place] [phone] * (ABNORMAL) Lipid Panel, Standard (07/04/2025 10:07 AM EDT) Triglycerides 129 <150 mg/dL [facility] Comment:Desirable Triglyceri de: less than 150 mg/dLBorderline High Triglyceride 150-199 mg/dLHigh Triglyceride: 200-499 mg/dLVery High Triglyceride: greater than or equal to 5OO mg/dL Cholesterol 158 <200 mg/dL [facility] Comment:Desirable Cholestero l: less than 200 mg/dLBorderline High Cholesterol: 200-239 mg/dLHigh Cholesterol: greater than 239 mg/dL LDL Cholesterol Calculated 104(H) <100 mg/dL [facility] Comment:Desirable LDL: less than 100 mg/dLNear Optimal/Above Optimal LDL: 110- 129 mg/dLBorderline High LDL: 130-159 mg/dLHigh LDL: 160-189 mg/dLVery High LDL: greater than or equal to 190 mg/dL HDL Cholesterol 29(L) >40 mg/dL [facility] Comment:Desirable HDL: great er than 40 mg/dL Note: This HDL assay may give artificially low results in patients with liver disease. Blood Venous blood specimen / Unknown 07/04/2025 10:07 AM EDT 07/04/2025 11:47 AM EDT us Marilee Phalen MUTUEL TELLER LAB BLOOD ORDERABLES Final Res ult Performing Organization Address [facility]/ZIP Co de Phone Number [facility] [address] [place] [address] [phone] * (ABNORMAL) Comprehensive Metabolic Panel (07/04/2025 10:07 AM EDT) Sodium 143 135 - 145 mmol/L [facility] Potassium 4.6 3.3 - 5.1 mmol/L [facility] Chloride 109(H) 96 - 108 mmol/L [facility] Carbon Dioxide 28 22 - 29 mmol/L [facility] Anion Gap 11(L) 12 - 20 [facility] Urea Nitrogen (BUN) 23(H) 9 - 16 mg/dL [facility] Creatinine, Serum 0.96 0.5 - 1.4 mg/dL [facility] Estimated Glomerular Filt Rate >60 [facility] Comment:Chronic Kidney Disea se: Estimated GFR < 60 mL/min/1.46a5Eknowu Kidney Disease: Estimated GFR < 15 mL/min/1.73m2 Glucose 135(H) 60 - 115 mg/dL [facility] Calcium 9.2 8.4 - 10.2 mg/dL [facility] Bilirubin, Total 0.8 0.0 - 1.0 mg/dL [facility] Aspartate Amino Transferase 25 5 - 37 U/L [facility] Alanine Aminotransferase 27 0 - 40 U/L [facility] Total Protein 6.4(L) 6.5 - 8.0 g/dL [facility] Albumin Level 3.8 3.5 - 5.0 g/dL [facility] Alkaline Phosphatase 60 39 - 117 U/L [facility] 07/04/2025 10:0 7 AM EDT 07/04/2025 11:47 AM EDT us Generic External Data Provider LAB BLOOD ORDERAB LES Final Result Performing Organization Address City/[facility]/ZIP Co de Phone Number [facility] [address] [place] [phone] [phone] * (ABNORMAL) POCT A1c (06/26/2025 1:35 PM EDT) Hemoglobin A1C 10.8(A) 4.0 - 5.7 % QC Media Lot # [id number] Lot# Expiration Date Blood 06/26/2025 1:35 PM EDT Marilee Cordero MUTUEL TELLER POINT OF CARE TEST ENTER/EDIT ORDERABLES Final Result * Hepatitis Panel, General (02/26/2025 7:32 AM EDT) Hepatitis A IgM Nonreactive Nonreactive [facility] Comment:IgM antibodies to GIBSON V not detected; does not exclude earlyacute or recovered HAV infection. ~Hepatitis B Surface Antibody NONREACTIVE Nonreactive [facility] Comment:Nonreactive: < 8.00 mIU/mL Hepatitis B Core Antibody Nonreactive Nonreactive [facility] Hepatitis C Antibody Nonreactive Nonreactive [facility] Comment:Antibodies to HCV no t detected; does not exclude early acuteHCV infection. Hepatitis B Surface Ag Negative Negative [facility] 02/26/2025 7:32 AM EDT 02/26/2025 7:32 AM EDT Generic External Data Provider LAB BLOOD ORDERAB LES Final Result [facility] [address] [place] [phone] * (ABNORMAL) Albumin, Random Urine W/Creatinine (12/25/2023 9:50 AM EST) Creatinine, Urine 162.10 mg/dL [facility] Microalbumin Urine >2,000.0 mg/L [facility] Microalbum Creatinine Ratio Ur 1,233.8(H ) <30 ug/mg cr [facility] Comment:Albumin/Creatinine R atio Reference Ranges: Normal: < 30 ug/mg creatinine Microalbuminuria: 30 - 300 ug/mg creatinineClinical Albuminuria: > 300 ug/mg creatinine Urine 12/25/2023 9:50 AM EST 12/25/2023 2:38 PM EST Marilee Cordero [facility] LAB URINE ORDERABLES Final Res ult Performing Organization Address [facility]/ZIP Co de Phone Number [facility] [address] [place] [phone] [phone] * HIV-1/2 Antigen and Antibodies, Fourth Generation, with Reflexes (09/13/2023 7:53 AM EST) HIV AB/AG Nonreactive Nonreactive [facility] Comment:HIV-1 p24 Ag and/or HIV-1/HIV-2 Ab not detected.A test result that is nonreactive does not exclude thepossibility of exposure to or infection with HIV-1 and/orHIV-2. Nonreactive results in this assay for individualswith prior exposure to HIV-1 and/or HIV-2 may be due toantigen and antibody levels that are below the limit ofdetection of this assay.The [employer] HIV Ag/Ab Combo assay result andsupplemental assay results should be interpreted inconjunction with the patient's clinical presentation,history and other laboratory results. If the results areinconsistent with clinical evidence, additional testing issuggested to confirm the result. Blood Venous blood specimen / Unknown 09/13/2023 7:53 AM EST 09/13/2023 7:53 AM EST Marilee Cordero [facility] LAB BLOOD ORDERABLES Final Res ult Performing Organization Address City/[facility]/ZIP Co de Phone Number [facility] [address] [place] [address] [phone] from Last 3 Months or Most Recently Relevant to Health Maintenance Insurance [facility] - HSN PARTIAL (MEDICAID) Care Teams Mexican Food Maker Hand Relationship Specialty Start Date End Date Marilee Cordero FNP [address] [place] [address] PCP - General Family Medicine 03/23/23 Cristo Garcia MD [address] [place] [phone] Rheumatology 09/01/24 Yoselyn Lyons [address] [place] [address] Ophthalmology 09/01/24 Balbir Don 22 [facility] [address] [place] [address] Sleep Medicine 09/01/24 Lindsay Nur PharmD [address] [place] [address] Pharmacist Pharmacy 05/29/25 Meño Butcher MD [address] [place] [address] 3rd [place] [address] Cardiology 07/06/25 Dr. Ramirez 100 [facility] [address] [place] [address] Nephrology 09/01/24
--- OUTSIDE RECORDS SUMMARY | 2025-08-29 14:50 | XMS_ITS | Encounter Summary ---
Author Organization [employer] Address [address] [facility] 7t [place] [address] Care Team Providers Care Terminal Carman Name Role Phone Marilee Cordero MANAGER FILM Primary Care Provider [phone] Cristo Garcia MD Unavailable Doris Candelario Unavailable [phone] Yoselyn Lyons Unavailable Unavailable Balbir Don Unavailable Lindsay NurD Unavailable [phone] Meño Butcher MD Unavailable [phone] Reason for Visit * Reason Comments Med Refill Encounter Details Date Type Department Care Team (Late st Contact Info) Description 07/23/2023 Refill [facility] MEDICINE [address] [place], [place] [phone] Donavan Mcgee AGNP Social History Tobacco Use [...] Department Care Team (Late Contact Info) Description 09/01/2025 3:15 PM EST Telemedicine [facility] PEDS [address] [place] [address] Marilee Cordero FNP [address] [place] [address] 09/05/2025 1:00 PM EST Medication Management [facility] MED & PEDS [address] [place] [address] Lindsay Nur PharmD [address] [place] [address] documented as of this encounter Visit Diagnoses Not on filedocumented in this encounter Additional Health Concerns Assessment Noted Time PHQ-9 Depression Total Score: 1 10/17/20 22 10:05 AM EST documented as of this encounter Care Teams Terminal Carman Relationship Specialty Start Date End Date Marilee Cordero FNP [address] [place] [address] PCP - General Family Medicine 03/23/23 Cristo Garcia MD [address] [place] [phone] Rheumatology 09/01/24 Doris Candelario [address] [place] [address] Cardiology 09/01/24 07/05/25 Yoselyn Lyons [address] [place] [address] Ophthalmology 09/01/24 Balbir Don [address] [address] Sleep Medicine 09/01/24 Lindsay Nur, Charisse [address] [place] [address] Pharmacist Pharmacy 05/29/25 Meño Butcher MD [facility] [address] 3rd [place] [address] Cardiology 07/06/25 Dr. Ramirez 100 [facility] [address] [place] [phone] Nephrology 09/01/24 [facility] 03/18/25 05/04/25 documented as of this encounter
--- OUTSIDE RECORDS SUMMARY | 2025-08-29 14:50 | XMS_ITS | Encounter Summary ---
Author Organization [employer] Address [address] [facility] 7t [place] [address] Care Team Providers Care Warehouse Attendant Name Role Phone Marilee Cordero Primary Care Provider [phone] Cristo Garcia MD Unavailable Doris Candelario Unavailable [phone] Yoselyn Lyons Unavailable Unavailable Balbir Don Unavailable Lindsay NurD Unavailable [phone] Meño Butcher MD Unavailable [phone] Reason for Visit * Reason Onset Date Comments Hospital Follow-up 03/17/2025 Encounter Details Date Type Department Care Team (Late st Contact Info) Description 03/17/2025 Telephone [facility] MEDICINE [address] [place] [address] Marilee Cordero FNP [address] [place], [place] [phone] Hospital Follow-up Social History Tobacco Use Types [...] from pt requesting a HDF appt. Hospital: [facility] Date of admission: 03/11/25 Discharge date: 03/15/25 Diagnosed: Leg pain and goes up to back *Send message to [place] Clinical Care Coordinators documented in this encounter Plan of Treatment Upcoming Encounters Date Type Department Care Team ([facility] st Contact Info) Description 09/01/2025 3:15 PM EST Telemedicine [facility] MED & PEDS [address] [place] [address] Marilee Cordero, BRANDEN [address] [place] [address] 09/05/2025 1:00 PM EST Medication Management [facility] MED [facility] PEDS [address] [place] [address] Lindsay Nur PharmD [address] [place] [address] documented as of this encounter Visit Diagnoses Not on filedocumented in this encounter Additional Health Concerns Assessment Noted Time PHQ-9 Depression Total Score: 13 025 8:59 AM EDT documented as of this encounter Care Teams Warehouse Attendant Relationship Specialty Start Date End Date Marilee Cordero FNP [address] [place] [address] PCP - General Family Medicine 03/23/23 Cristo Garcia MD [address] [place] [address] Rheumatology 09/01/24 Doris Candelario [address] [place] [address] Cardiology 09/01/24 07/05/25 Yoselyn Lyons [address] [place] [address] Ophthalmology 09/01/24 Balbir Don 22 [facility] [address] [place] [address] Sleep Medicine 09/01/24 Lindsay Nur, PharmD [address] [place] [address] Pharmacist Pharmacy 05/29/25 Meño Butcher MD [address] [place] [address] 3rd [place] [address] Cardiology 07/06/25 Dr. Ramirez [address] [phone] Nephrology 09/01/24 [facility] 03/18/25 05/04/25 documented as of this encounter
--- OUTSIDE RECORDS SUMMARY | 2025-08-29 14:52 | XMS_ITS | Clinical Summary ---
Author Organization [facility] [place] [address] Phone Care Team Providers Care Wrapper And Preserver Name Role Phone Physician, Pcp Unknown Primary [...] - 06/07/2025 2:36 PM EDT Hospital Encounter [facility] Intermediate Care Unit [address] [place] [address] Bayron Hester MD Shapiro, Benjamin, [...] (hyper tension) DM2 (diabetes mellitus, type 2) ([facility] V24, [facility] [place]28) 06/04/2012 DX:DM2 (diabetes mellitus, t ype 2) ([facility]) Obstructive sleep apnea 06/04/2012 DX:Obstr uctive sleep apnea Psoriatic arthritis ([facility] [place], [facility] V28) 06/04/2012 DX:Psoriatic arthritis ([facility]) Hyperlipidemia 06/04/2012 DX:Hyperlipidemi a; COMMENT: [...] Heart attack Other cousins with fa [place] VA's 40's Asthma Sister Relation Name Status Comments [...] of4 resultswithin the time period is included. [facility] Glucose POCT 271(H) 70 - 100 mg/dL 06/07/2025 11:44 AM EDT [facility] Blood Capillary blood specimen / Unknown 06/07/2025 11:44 AM EDT 06/07/2025 11:45 AM EDT Corey Willingham MD LAB POINT O F CARE TEST DOCKED DEVICE UNSOLICITED RESULTS Final Result [facility] [address] [place] [address], [place] [phone] * Troponin I high sensitivity (06/07/2025 5:51 AM EDT) Only the most recent of4 resultswithin the time period is included. [facility] High Sensitivity Troponin I 38 <=79 [...] esult [facility] [address] [place] [address], [place] [phone] * (ABNORMAL) Complete blood count (06/07/2025 5:51 AM EDT) [facility] WBC 5.7 4.8 - 10.8 K/mcL LAB HEMETOLOGY METHOD 06/07/2025 8:00 AM [facility] RBC 5.00 4.50 - 5.50 M/mcL LAB HEMETOLOGY METHOD 06/07/2025 8:00 AM [facility] Hemoglobin 13.6 13.5 - 17.5 g/dL LAB HEMETOLOGY METHOD 06/07/2025 8:00 AM [facility] Hematocrit 41.7(L) 42.0 - 54.0 % LAB HEMETOLOGY METHOD 06/07/2025 8:00 AM [facility] MCV 84.2 79.0 - 98.0 FL LAB HEMETOLOGY METHOD 06/07/2025 8:00 AM [facility] MCH 27.5 27.0 - 32.0 pcg LAB HEMETOLOGY METHOD 06/07/2025 8:00 AM [facility] MCHC 32.6 32.0 - 37.0 g/dL LAB HEMETOLOGY METHOD 06/07/2025 8:00 AM [facility] RDW 13.6 11.0 - 15.0 % LAB HEMETOLOGY METHOD 06/07/2025 8:00 AM [facility] Platelets 243 130 - 400 K/mcL LAB HEMETOLOGY METHOD 06/07/2025 8:00 AM EDT [facility] MPV 9.7 [...] esult [facility] [address] [place] [address], [place] [phone] * (ABNORMAL) Magnesium (06/07/2025 5:51 AM EDT) Magnesium 2.7(H) 1.9 - 2.6 mg/dL LAB CHEMISTRY METHOD 06/07/2025 6:58 AM EDT [facility] Blood Venous blood specimen / Unknown Venipuncture / Unknown 06/07/2025 5:51 AM EDT 06/07/2025 6:23 AM EDT Hyacinth DORSEY LAB BLOOD ORDERABLES Final R esult [facility] [address] [place] [address], [place] [phone] * (ABNORMAL) Basic metabolic panel (06/07/2025 5:51 AM EDT) Only the most recent of2 resultswithin the time period is included. Sodium 139 133 - 145 mmol/L LAB CHEMISTRY METHOD 06/07/2025 6:58 AM [facility] Potassium 3.6 3.5 - 5.5 mmol/L LAB CHEMISTRY METHOD 06/07/2025 6:58 AM [facility] Chloride 99 96 - 110 mmol/L LAB CHEMISTRY METHOD 06/07/2025 6:58 AM [facility] CO2 35(H) 21 - 32 mmol/L LAB CHEMISTRY METHOD 06/07/2025 6:58 AM [facility] Anion Gap 5 3 - 11 LAB CHEMISTRY METHOD 06/07/2025 6:58 AM [facility] Glucose 200(H) 70 - 100 mg/dL LAB CHEMISTRY METHOD 06/07/2025 6:58 AM [facility] BUN 29(H) 5 - 25 mg/dL LAB CHEMISTRY METHOD 06/07/2025 6:58 AM [facility] Creatinine 1.20 0.70 - 1.30 mg/dL LAB CHEMISTRY METHOD 06/07/2025 6:58 AM [facility] eGFR 71 >=60 mL/min/1. 73m2 LAB CHEMISTRY METHOD 06/07/2025 6:58 AM [facility] Comment:Calculation based on the Chronic Kidney Disease Epidemiology Collaboration (CKD-EPI) equation refit without adjustment for race. BUN/Creatinine Ratio 24.2 LAB CHEMISTRY METHOD 06/07/2025 6:58 AM [facility] Calcium 9.2 8.5 - 10.5 mg/dL LAB CHEMISTRY METHOD 06/07/2025 6:58 AM [facility] Blood Venous blood specimen / Unknown Venipuncture / Unknown 06/07/2025 5:51 AM EDT 06/07/2025 6:23 AM EDT us Hyacinth DORSEY LAB BLOOD ORDERABLES Final R esult [facility] [address] [place] [address], [place] [phone] * SST tube (06/06/2025 7:06 PM EDT) Pathologist [facility] Extra Tube Hold for add-ons. 06/06/2025 9:01 PM EDT [facility] Comment:Auto resulted. Blood Venous blood specimen / Unknown 06/06/2025 7:06 PM EDT 06/06/2025 7:26 PM EDT us Danny Larose DO LAB BLOOD ORDERABLES Final R esult Performing Organization Address [facility] Co de Phone Number [facility] [address] [place] [address], [place] [phone] * Light blue tube (06/06/2025 7:06 PM EDT) [facility] Extra Tube Hold for add-ons. 06/06/2025 9:01 PM EDT [facility] Comment:Auto resulted. Blood Venous blood specimen / Unknown 06/06/2025 7:06 PM EDT 06/06/2025 7:26 PM EDT us Danny Larose DO LAB BLOOD ORDERABLES Final R esult Performing Organization Address City/[facility]/ZIP Co de Phone Number [facility] [address] [place] [address], [place] [phone] * Respiratory virus panel molecular study (06/06/2025 3:52 PM EDT) Pathologist [facility] Adenovirus Detection by PCR Not Detected Not [...] PM EDT Testing was performed using the [employer] Respiratory Pathogen PCR Assay. All results must [...] Result [facility] [address] [place] [address], * CT Angio Chest wo and/or w [...] Signed Date: 06/06/2025 15:19 ET Workstation ID: [id number] Transcribed By: Self Edit Transcribed Date: 06/06/2025 [...] Signed Date: 06/06/2025 15:19 ET Workstation ID: [id number] Transcribed By: Self Edit Transcribed Date: 06/06/2025 [...] infected, trauma patients, DIC, acute CVA, acute VA, unstable angina, AF, old age, , and smoking. D-Dimer may be decreased with: Initiation of heparin therapy and oral anticoagulants. Bayron Hester MD LAB BLOOD ORDERABLES Final Result [facility] [address] [place] [address], * XR Chest 1 View (06/06/2025 11:04 AM EDT) Anatomical Region Laterality Modality Body Radiographic Aleida ging 06/06/2025 11:0 7 AM EDT Impressions 06/06/2025 11:08 AM EDT No acute pulmonary disease. Pulmonary vascular congestion consistent with congestive heart failure has resolved since 02/15/2025. Cardiomegaly is stable. Code 04106 -------- FINAL REPORT -------- Dictated By: Ceasar Lopez Dictated Date: 06/06/2025 11:07 ET Assigned Physician: Ceasar Lopez Reviewed and Electronically Signed By: Ceasar Lopez Signed Date: 06/06/2025 11:08 ET Workstation ID: [id number] Transcribed By: Self Edit Transcribed Date: 06/06/2025 [...] has resolved since 02/15/2025. Cardiomegaly isstable. Code 06508 -------- FINAL REPORT -------- Dictated By: Ceasar Lopez Dictated Date: 06/06/2025 11:07 ET Assigned Physician: Ceasar Lopez Reviewed and Electronically Signed By: Ceasar Lopez Signed Date: 06/06/2025 11:08 ET Workstation ID: [id number] Transcribed By: Self Edit Transcribed Date: 06/06/2025 11:07 ET us Bayron Hester MD IMG XR PROCEDURES Final Res ult * ECG 12 lead (06/06/2025 10:54 AM EDT) Ventricular Rate ECG 65 BPM GEMUSE Atrial Rate 65 BPM GEMUSE P-R Interval 144 ms GEMUSE QRS Duration 78 ms GEMUSE Q-T Interval 438 ms GEMUSE QTc 455 ms GEMUSE P Wave [place] 26 degrees GEMUSE R [place] 4 degrees GEMUSE T [place] 116 degrees GEMUSE ECG Interpretation Normal sinus [...] K/mcL LAB HEMETOLOGY METHOD 06/06/2025 10:[facility] RBC 5.40 4.50 - 5.50 M/mcL LAB HEMETOLOGY METHOD 06/06/2025 10:58 AM EDT [facility] Hemoglobin 15.3 13.5 - 17.5 g/dL LAB HEMETOLOGY METHOD 06/06/2025 10:58 AM [facility] Hematocrit 44.2 42.0 - 54.0 % LAB HEMETOLOGY METHOD 06/06/2025 10:58 AM EDT [facility] MCV 81.4 79.0 - 98.0 FL LAB HEMETOLOGY METHOD 06/06/2025 10:58 AM [facility] MCH 28.2 27.0 - 32.0 pcg LAB HEMETOLOGY METHOD 06/06/2025 10:58 AM [facility] MCHC 34.6 32.0 - 37.0 g/dL LAB HEMETOLOGY METHOD 06/06/2025 10:58 AM [facility] RDW 13.2 11.0 - 15.0 % LAB HEMETOLOGY METHOD 06/06/2025 10:58 AM [facility] Platelets 230 130 - 400 K/mcL LAB HEMETOLOGY METHOD 06/06/2025 10:58 AM [facility] MPV 9.7 7.0 - 11.0 FL LAB HEMETOLOGY METHOD 06/06/2025 10:58 AM [facility] NRBC 0.0 <1.0 % LAB HEMETOLOGY METHOD 06/06/2025 10:58 AM [facility] NRBC Absolute 0.00 <0.10 K/[facility] LAB HEMETOLOGY METHOD 06/06/2025 10:58 AM [facility] Neutrophils Relative 80.0 % LAB HEMETOLOGY METHOD 06/06/2025 10:58 AM [facility] Lymphocytes Relative 10.3 % LAB HEMETOLOGY METHOD 06/06/2025 10:58 AM [facility] Monocytes Relative 7.7 % LAB HEMETOLOGY METHOD 06/06/2025 10:58 AM [facility] Eosinophils Relative 1.2 % LAB HEMETOLOGY METHOD 06/06/2025 10:58 AM [facility] Basophils Relative 0.4 % LAB HEMETOLOGY METHOD 06/06/2025 10:58 AM [facility] Immature Granulocytes Relative 0.4 % LAB HEMETOLOGY METHOD 06/06/2025 10:58 AM [facility] Neutrophils Absolute 5.54 1.50 - 7.00 K/mcL LAB HEMETOLOGY METHOD 06/06/2025 10:58 AM [facility] Lymphocytes Absolute 0.71(L) 1.00 - 5.00 K/mcL LAB HEMETOLOGY METHOD 06/06/2025 10:58 AM EDT [facility] Monocytes Absolute 0.53 0.20 - 1.00 K/mcL LAB HEMETOLOGY METHOD 06/06/2025 10:58 AM EDT [facility] Eosinophils Absolute 0.08 0.00 - 0.50 K/[facility] LAB HEMETOLOGY METHOD 06/06/2025 10:58 AM EDT [facility] Basophils Absolute 0.03 0.00 - 0.20 K/[facility] LAB HEMETOLOGY METHOD 06/06/2025 10:58 AM EDT [facility] Immature Granulocytes Absolute 0.03 0.00 - 0.03 K/mcL LAB HEMETOLOGY METHOD 06/06/2025 10:58 AM EDT [facility] Blood Venous blood specimen / Unknown Venipuncture / Unknown 06/06/2025 10:42 AM EDT 06/06/2025 10:50 AM EDT Bayron Hester MD LAB BLOOD ORDERABLES Final Result Performing Organization Address City/[facility]/ZIP Co de Phone Number [facility] [address] [place] [address], [place] [phone] * B-type natriuretic peptide (06/06/2025 10:42 AM EDT) BNP 92 <=100 pcg/mL LAB CHEMISTRY METHOD 06/06/2025 11:29 AM EDT [facility] Blood Venous blood specimen / Unknown Venipuncture / Unknown 06/06/2025 10:42 AM EDT 06/06/2025 10:50 AM EDT Bayron Hester MD LAB BLOOD ORDERABLES Final Result [facility] [address] [place] [address], [place] [phone] * Serum albumin (06/06/2025 10:42 AM EDT) [facility] Albumin 3.2 3.2 - 5.0 g/dL LAB CHEMISTRY METHOD 06/06/2025 2:58 PM EDT [facility] Blood Venous blood specimen / Unknown Venipuncture / Unknown 06/06/2025 10:42 AM EDT 06/06/2025 10:50 AM EDT Hyacinth DORSEY LAB BLOOD ORDERABLES Final R esult [facility] [address] [place] [address], [place] [phone] * Hepatitis C antibody (02/16/2025 2:00 PM EDT) [facility] Hepatitis C Antibody Negative Negative LAB CHEMISTRY METHOD 02/16/2025 5:37 PM EDT [facility] Blood Venous blood specimen / Unknown Venipuncture / Unknown 02/16/2025 2:00 PM EDT 02/16/2025 2:05 PM EDT Ish David MD LAB BLOOD ORDERABLES Final Res ult Performing Organization Address [facility]/ZIP Co de Phone Number [facility] [address] [place] [address], [place] [phone] from Last 3 Months or Most Recently Relevant to Health Maintenance Insurance [facility] PUBLIC PLANS Advance Directives * Full Code [...] currently active code status orders. Care Teams Wrapper And Preserver Relationship Specialty Start Date End Date Physician, Pcp Unknown PCP - General 05/01/25
--- OUTSIDE RECORDS SUMMARY | 2025-08-29 14:52 | XMS_ITS | Encounter Summary ---
Author Organization [employer] Address [address] [facility] 7t [place] [address] Care Team Providers Care Office Lead Name Role Phone Marilee Cordero Primary Care Provider [phone] Cristo Garcia MD Unavailable Yoselyn Lyons Unavailable Unavailable Balbir Don Unavailable Lindsay Nur PharmD Unavailable [phone] Meño Butcher MD Unavailable [phone] Reason for Visit * Reason Onset Date Comments Transition Of Care (Tcm) 08/26/2025 Encounter Details Date Type Department Care Team ([facility] st Contact Info) Description 08/26/2025 Telephone [facility] [address] [place], [place] [id number] Marilee Cordero FNP [address] [place] [address] Transition Of Care (Tcm) Social History Tobacco Use Types Packs/Day Years [...] the past 12 months, has t he [employer], gas, oil or water company threatened to [...] encounter Miscellaneous Notes * Telephone Encounter - Clementina Swann [place] - 08/26/2025 9:55 AM EDT Booked tele appointment on 09/01 at 3:15pm with Gil JENSEN documented in this encounter Plan of Treatment Upcoming Encounters Date Type Department Care Team ([facility] st Contact Info) Description 09/01/2025 3:15 PM EST Telemedicine [facility] MED & PEDS [address] [place] [address] Marilee Cordero FNP [address] [place] [address] 09/05/2025 1:00 PM EST Medication Management [facility] MED & PEDS [address] [place] [address] Lindsay Nur, MorenitaD [address] [place] [address] documented as of this encounter Visit Diagnoses Not on filedocumented in this encounter Additional Health Concerns Assessment Noted Time PHQ-9 Depression Total Score: 13 025 8:59 AM EDT documented as of this encounter Care Teams Office Lead Relationship Specialty Start Date End Date Marilee Cordero FNP [address] [place] [address] PCP - General Family Medicine 03/23/23 Cristo Garcia MD [address] [place] [address] Rheumatology 09/01/24 Yoselyn Lyons [address] [place] [address] Ophthalmology 09/01/24 Balbir Don [address] [facility] [address] [place] [address] Sleep Medicine 09/01/24 Lindsay Nur PharmD [address] [place] [address] Pharmacist Pharmacy 05/29/25 Meño Butcher MD [address] [place] [address] 3rd [place] [address] Cardiology 07/06/25 Dr. Ramirez [address] [facility] [address] [place] [address] Nephrology 09/01/24 documented as of this encounter
--- OUTSIDE RECORDS SUMMARY | 2025-08-29 14:52 | XMS_ITS | Clinical Summary ---
Author Organization [facility] Address [address] [address] Phone Care Team Providers Care Metal Base Blocker Name Role Phone Marilee Cordero BRANDEN Primary Care Provider [phone] Allergies No known active allergies Medications amLODIPine [...] Hospitalization for CHF exacerbation: Oct 20[facility] at [facility] Last Assessment & Plan: - Reviewed [...] Psoriatic arthritis 06/04/2012 Overview (03/26/2025): Followed by [facility] Rheum - Dr. Garcia Med therapy: DMARD, Derik Previous tx: methotrexate and Enbrel (hx of failed Humira tx in Rheum note 02/04/21). Plan to hold methotrexate with hx cardiac conditions Obstructive sleep apnea syndrome 06/04/2012 Overview (03/26/2025): Following with [facility] - Dr. Balbir Don Cont w/ [...] to 49 Years) Discontinued 06/28/2018, 09/30/2008 Insurance [facility] [facility] ([id number]) [employer] [facility] ([id number]) Care Teams Metal Base Blocker Relationship Specialty Start Date End Date Marilee Cordero FNP [address] [place] [address] PCP - General 01/08/24
== END 2025-08-29 14:52 | disposition home or self-care (01) ==
LOC: HO.RHES 14:01
PROVIDERS: PCP Registered Nurse; Visit Provider Student in an Organized Health Care Education/Training Program
DX: L40.50 Arthropathic psoriasis, unspecified (principal); Z79.620 Long term (current) use of immunosuppressive biologic
CPT/HCPCS: 99214

== ENCOUNTER → 2025-08-29 14:01 | Outpatient (BNVA) | payer OTHER, SELFPAY | PROVIDERS: PCP Registered Nurse; Visit Provider Student in an Organized Health Care Education/Training Program | DX: L40.50 Arthropathic psoriasis, unspecified (principal); Z79.620 Long term (current) use of immunosuppressive biologic; Z79.82 Long term (current) use of aspirin; Z79.899 Other long term (current) drug therapy | CPT/HCPCS: 99212 ==

== ENCOUNTER 2025-09-05 14:12 | Outpatient (REF) | payer OTHER, SELFPAY ==
--- OUTSIDE RECORDS SUMMARY | 2018-07-03 08:45 | XMS_ITS | Continuity of Care Document ---
Author Organization [facility] vices Address [address] [place] [address] Phone Care Team Providers Care Information Security Officer Name Role Phone Unavailable Unavailable Unavailable Procedures Procedure Date Psychotherapy, 30 Minutes With Patient S Psych Dx Eval Psychotherapy, 30 Minutes With Patient A Advance Directives Directive Yes / No Effective Date File Name No Information Encounters Encounter Description Practice Location Reason(s) For Visit Diagnoses Date Provider Providers Copied on Encounter Psychotherap y, 30 Minutes With Patient [facility], [address] [place] [address], tel:[phone] [facility] Behavioral Health Individual Therapy (chief complaint) Cannabis use, unspecified, uncomplicatedC ocaine use, unspecified, uncomplicatedM ajor depressive disorder, recurrent, mildPost-traum atic stress disorder, unspecified Sep-0 8 No Information Psych Dx Eval [facility], [address] [place] [address], [facility], tel:[phone] [facility] Behavioral Health Initial Assessment (chief complaint) Major depressive disorder, recurrent, mildPost-traum atic stress disorder, unspecifiedCoc norman use, unspecified, uncomplicatedC annabis use, unspecified, uncomplicated May- 8 No Information Psychotherap y, 30 Minutes With Patient [facility], [address] [place] [address], tel:[phone] [facility] Behavioral Health depression (chief complaint) Major depressive disorder, recurrent, mildPost-traum atic stress disorder, unspecified May-2 8 No Information Family History Family Member Type Diagnosis Age At Onset No Information Payers Payer name Insurance type Covered republican ID Authoriza tiluiz(s) BRII Alonso [id number] Social History Type Description Quantity Date Captured [...]
[2025-09-05 14:31] LABS: MANUAL DIFF FLAG NO
[2025-09-05 14:43] LABS: Appearance Urine Clear; Glucose Urine UA >=1000 mg/dL (Negative); PH 6.0 (5.0-9.0); Specific Gravity - Urine >= 1.030 (1.005-1.025); UMIC TRIGGER UA YES
[2025-09-05 14:43] LABS: Hematocrit 41.9 % (42.0-52.0); Hemoglobin 14.2 g/dl (14.0-18.0); Imm Gran Abs Auto 0.01 X10*3/uL (0.00-0.03); Imm Gran Pct Auto 0.2 % (0.0-0.4); Lymphocytes Absolute Auto 0.6 X10*3/uL (1.2-4.9); Mean Corpuscular HGB Conc 33.9 g/dl (31.0-36.0); Mean Corpuscular Hemoglobin 28.1 pg (27.0-33.0); Mean Corpuscular Volume 82.8 fL (80.0-98.0); NRBC Abs Auto 0.000 X10*3/uL (0.0-0.012); NRBC Pct Auto 0.0 /100WBC (0.0-0.2); Platelet Count 200 X10*3/uL (160-400); Red Blood Count 5.06 X10*6/uL (4.60-5.80); White Blood Count 6.0 X10*3/uL (4.8-10.8)
[2025-09-05 15:13] LABS: Total Protein Urine Random 172 mg/dL (<12)
[2025-09-05 15:16] LABS: Alanine Aminotransferase 20 U/L (0-40); Albumin Level 4.0 g/dL (3.5-5.0); Alkaline Phosphatase 108 U/L (39-117); Anion Gap 15 (12-20); Aspartate Amino Transferase 18 U/L (5-37); Blood Urea Nitrogen 24 mg/dL (9-16); Calcium 9.3 mg/dL (8.4-10.2); Carbon Dioxide 27 mmol/L (22-29); Chloride 96 mmol/L (96-108); Estimated Glomerular Filt Rate > 60; Potassium 3.9 mmol/L (3.3-5.1); Sodium 134 mmol/L (135-145); Total Protein 6.8 g/dL (6.5-8.0)
--- OUTSIDE RECORDS SUMMARY | 2025-09-05 15:58 | XMS_ITS | Encounter Summary ---
Author Organization [employer] Address [address] [facility] 7t [place] [address] Care Team Providers Care Supervisor Correspondence Section Name Role Phone Marilee Cordero CUSTOMER MARKETING ASSISTANT Primary Care Provider [phone] Cristo Garcia MD Unavailable Doris Candelario Unavailable [phone] Yoselyn Lyons Unavailable Unavailable Balbir Don Unavailable Lindsay NurD Unavailable [phone] Meño Butcher MD Unavailable [phone] Reason for Visit * Reason Comments Med Refill Encounter Details Date Type Department Care Team (Late st Contact Info) Description 07/23/2023 Refill [facility] MEDICINE [address] [place] [address] Donavan Mcgee AGNP Social History Tobacco Use [...] Department Care Team (Late Contact Info) Description 10/02/2025 2:30 PM EST Medication Management [facility] MED & PEDS [address] [place] [address] Lindsay Nur PharmD [address] [place] [address] documented as of this encounter Visit Diagnoses Not on filedocumented in this encounter Additional Health Concerns Assessment Noted Time PHQ-9 Depression Total Score: 1 10/17/20 22 10:05 AM EST documented as of this encounter Care Teams Supervisor Correspondence Section Relationship Specialty Start Date End Date Marliee Cordero FNP [address] [place] [address] PCP - General Family Medicine 03/23/23 Cristo Garcia MD [address] [place] [address] Rheumatology 09/01/24 Doris Candelario [address] [place] [address] Cardiology 09/01/24 07/05/25 Yoselyn Lyons [address] [place] [address] Ophthalmology 09/01/24 Balbir Don 22 [facility] [address] [place] [address] Sleep Medicine 09/01/24 Lindsay Nur, PharmD [address] [place] [address] Pharmacist Pharmacy 05/29/25 Meño Butcher MD [address] [place] [address] 3rd [place] [address] Cardiology 07/06/25 Dr. Ramirez [address] [place] [address] [address] [place] [address] Nephrology 09/01/24 Noman LEWISA 03/18/25 05/04/25 documented as of this encounter
--- OUTSIDE RECORDS SUMMARY | 2025-09-05 15:58 | XMS_ITS | Encounter Summary ---
Author Organization [employer] Address [address] [facility] 7t [place] [address] Care Team Providers Care Finished Stock Inspector Name Role Phone Marilee Cordero Primary Care Provider [phone] Cristo Garcia MD Unavailable Doris Candelario Unavailable [phone] Yoselyn Lyons Unavailable Unavailable Balbir Don Unavailable Lindsay NurD Unavailable [phone] Meño Butcher MD Unavailable [phone] Reason for Visit * Reason Onset Date Comments Hospital Follow-up 03/17/2025 Encounter Details Date Type Department Care Team (Late st Contact Info) Description 03/17/2025 Telephone [facility] MEDICINE [address] [place] [address] Marilee Cordero FNP [address] [place], [place] [phone] Hospital Follow-up Social History Tobacco Use Types [...] from pt requesting a HDF appt. Hospital: [facility] Date of admission: 03/11/25 Discharge date: 03/15/25 Diagnosed: Leg pain and goes up to back *Send message to Noman Clinical Care Coordinators documented in this encounter Plan of Treatment Upcoming Encounters Date Type Department Care Team (Late st Contact Info) Description 10/02/2025 2:30 PM EST Medication Management [facility] MED & PEDS [address] [place] [address] Lindsay Nur, PharmD [address] [place] [address] documented as of this encounter Visit Diagnoses Not on filedocumented in this encounter Additional Health Concerns Assessment Noted Time PHQ-9 Depression Total Score: 13 025 8:59 AM EDT documented as of this encounter Care Teams Finished Stock Inspector Relationship Specialty Start Date End Date Marilee Cordero FNP [address] [place] [address] PCP - General Family Medicine 03/23/23 Cristo Garcia MD [address] [place] [address] [address] [place] [address] Rheumatology 09/01/24 Doris Candelario [address] [place] [address] Cardiology 09/01/24 07/05/25 Yoselyn Lyons [address] [place] [address] Ophthalmology 09/01/24 Balbir Don [address] [facility] [address] [place] [address] Sleep Medicine 09/01/24 Lindsay Nur PharmD [address] [place] [address] Pharmacist Pharmacy 05/29/25 Meño Butcher MD [address] [place] [address] 3rd [place] [address] Cardiology 07/06/25 Dr. Ramirez [address] [facility] [address] [place] [address] Nephrology 09/01/24 [facility] 03/18/25 05/04/25 documented as of this encounter
--- OUTSIDE RECORDS SUMMARY | 2025-09-05 15:58 | XMS_ITS | Encounter Summary ---
Author Organization [employer] Address [address] [facility] 7[address] [place] [address] Care Team Providers Care Customer Solutions Teammate Name Role Phone Marilee Cordero BRANDEN Primary Care Provider [phone] Cristo Garcia MD Unavailable Yoselyn Lyons Unavailable Unavailable Balbir Don Unavailable Lindsay Nur PharmD Unavailable [phone] Meño Butcher MD Unavailable [phone] Encounter Details Date Type Department Care Team (Late st Contact Info) Description 09/05/2025 Telephone [facility] MED & PEDS [address] [place], [place] [id number] Lindsay Nur, PharmD [address] [place], [place] [id number] Social History Tobacco Use Types Packs/Day Years [...] Telephone Encounter - Lindsay Nur PharmD - 09/05/2025 1:55 PM EST During CDTM visit today patient expresses concern about low SpO2 readings on home pulse oximeter that occurred 2 months ago . Patient showed photos on cell phone confirming readings of 60-80%. Confirms experiencing SOB at the time. Confirms going to the hospital for this problem on more than one occasion and reports nothing was found to be wrong, and the problem returned 3-4 days after discharge. Today patient DENIES currently experiencing SOB, chest pain, or other cardiac or respiratory symptoms. SpO2 in office was 98%. Patient does have heart failure. Suggested monitoring weight for any rapid fluid accumulation. Suggested following up with cardiology. Advised ER immediately if low O2 saturation recurs. Will send toPCP as an FYI. documented in this encounter Plan of Treatment Upcoming Encounters Date Type Department Care Team (Late st Contact Info) Description 10/02/2025 2:30 PM EST Medication Management [facility] MED & PEDS [address] [place] [address] Lindsay Nur PharmD [address] [place] [address] documented as of this encounter Visit Diagnoses Not on filedocumented in this encounter Additional Health Concerns Assessment Noted Time PHQ-9 Depression Total Score: 13 025 8:59 AM EDT documented as of this encounter Care Teams Customer Solutions Teammate Relationship Specialty Start Date End Date Marilee Cordero FNP [address] [place] [address] PCP - General Family Medicine 03/23/23 Cristo Garcia MD [address] [place] [address] [address] [place] [address] Rheumatology 09/01/24 Yoselyn Lyons [address] [place] [address] Ophthalmology 09/01/24 Balbir Don 22 [facility] [address] [place] [address] Sleep Medicine 09/01/24 Lindsay Nur PharmD [address] [place] [address] Pharmacist Pharmacy 05/29/25 Meño Butcher MD [address] [place] [address] 3rd [place] [address] Cardiology 07/06/25 Dr. Ramirez 100 [facility] [address] [place] [address] Nephrology 09/01/24 documented as of this encounter
--- OUTSIDE RECORDS SUMMARY | 2025-09-05 15:58 | XMS_ITS | Encounter Summary ---
Author Organization [employer] Address 75 [facility] 7t [place] [address] Care Team Providers Care Business Data Analyst Name Role Phone Marilee Cordero MANAGER LSW Primary Care Provider [phone] Cristo Garcia MD Unavailable Yoselyn Lyons Unavailable Unavailable Balbir Don Unavailable Lindsay Nur PharmD Unavailable [phone] Meño Butcher MD Unavailable [phone] Encounter Details Date Type Department Care Team (Latest Contact Info) Description 09/05/2025 Travel Social History Tobacco Use Types Packs/Day [...] Description 10/02/2025 2:30 PM EST Medication Management [facility] MED & PEDS [address] [place] [address] Lindsay Nur PharmD [address] [place] [address] documented as of this encounter Visit Diagnoses Not on filedocumented in this encounter Additional Health Concerns Assessment Noted Time PHQ-9 Depression Total Score: 13 025 8:59 AM EDT documented as of this encounter Care Teams Business Data Analyst Relationship Specialty Start Date End Date Marilee Cordero FNP [address] [place] [address] PCP - General Family Medicine 03/23/23 Cristo Garcia MD [address] [place] [address] Rheumatology 09/01/24 Yoselyn Lyons [address] [place] [address] Ophthalmology 09/01/24 Balbir Don 22 [facility] [address] [place] [address] Sleep Medicine 09/01/24 Lindsay Nur, MorenitaD [address] [place] [address] Pharmacist Pharmacy 05/29/25 Meño Butcher MD 11 [facility] 3rd [place] [address] Cardiology 07/06/25 Dr. Ramirez [address] [place] [phone] Nephrology 09/01/24 documented as of this encounter
--- OUTSIDE RECORDS SUMMARY | 2025-09-05 15:58 | XMS_ITS | Encounter Summary ---
Author Organization [employer] Address 75 [facility] 7t [place] [address] Care Team Providers Care Back Pad Inspector Name Role Phone Marilee Cordero FIELD MARKETING REPRESENTATIVE Primary Care Provider Cristo Garcia MD Unavailable Yoselyn Lyons Unavailable Unavailable Balbir Don Unavailable Lindsay Nur PharmD Unavailable [phone] Meño Butcher MD Unavailable [phone] Encounter Details Date Type Department Care Team (Latest Contact Info) Description 09/01/2025 Travel Social History Tobacco Use Types Packs/Day [...] Description 10/02/2025 2:30 PM EST Medication Management [facility] MED & PEDS [address] [place] [address] Lindsay Nur PharmD [address] [place] [address] documented as of this encounter Visit Diagnoses Not on filedocumented in this encounter Additional Health Concerns Assessment Noted Time PHQ-9 Depression Total Score: 13 025 8:59 AM EDT documented as of this encounter Care Teams Back Pad Inspector Relationship Specialty Start Date End Date Marilee Cordero FNP [address] [place] [address] PCP - General Family Medicine 03/23/23 Cristo Garcia MD [address] [place] [address] Rheumatology 09/01/24 Yoselyn Lyons [address] [place] [address] Ophthalmology 09/01/24 Balbir Don 22 [facility] [address] [place] [address] Sleep Medicine 09/01/24 Lindsay Nur, MorenitaD [address] [place] [address] Pharmacist Pharmacy 05/29/25 Meño Butcher MD 11 [facility] 3rd [place] [address] Cardiology 07/06/25 Dr. Ramirez [address] [place] [phone] Nephrology 09/01/24 documented as of this encounter
--- OUTSIDE RECORDS SUMMARY | 2025-09-05 15:58 | XMS_ITS | Clinical Summary ---
Author Organization [employer] Address [address] [place] [address] Care Team Providers Care Architectural Examiner Name Role Phone Marilee Cordero BRANDEN Primary Care Provider [phone] Cristo Garcia MD Unavailable Yoselyn Lyons Unavailable Unavailable Balbir Don Unavailable Lindsay Nur PharmD Unavailable [phone] Meño Butcher MD Unavailable [phone] Allergies No known active allergies Medications Blood Pressure kit Use daily Active Blood Glucose Monitoring Suppl (FreeStyle [place] Lite) w/Device kit 1 each by Other [...] pen 100 each 3 03/23/20 23 Active acetaminophen (Tylenol) 500 MG tablet Take 1 tablet (500 mg) by mouth every 6 (six) hours if needed for mild pain for up to 20 doses. 20 tablet 03/18/20 24 Active carvedilol (Coreg) 6.25 MG tablet Take 6.25 mg by mouth with breakfast and with evening meal. 05/21/20 24 Active Taltz 80 MG/ML injection 05/09/20 24 Active furosemide (Lasix) 40 MG tablet Take 2 tablets by mouth 2 times daily. Active tamsulosin (Flomax) 0.4 MG 24 hr capsuleIndicat ions:Benign prostatic hyperplasia, unspecified whether lower urinary tract symptoms present TAKE 1 CAPSULE BY MOUTH EVERY EVENING (1/2 HOUR AFTER MEALS) 90 capsule 1 10/22/20 24 Active Aspirin EC Adult Low Dose 81 MG EC tabletIndicati ons:Congestive heart failure, unspecified HF chronicity, unspecified heart failure type (HCC) TAKE 1 TABLET BY MOUTH EVERY MORNING 90 tablet 1 02/26/20 25 Active Entresto 49-51 MG tablet Take 1 tablet by mouth 2 times daily. 02/21/20 25 Active empagliflozin (Jardiance) 25 MG Take 1 tablet (25 mg) by mouth Once per day. 90 tablet 3 05/29/20 25 Active spironolactone (Aldactone) 25 MG tablet 05/22/20 25 Active Dulaglutide (Trulicity) 3 MG/0.5ML solution auto-injectorI ndications:Typ e 2 diabetes mellitus with hyperglycemia, with long-term current use of insulin ([facility]) Inject 3 mg under the skin 1 (one) time per week. 2 mL 2 09/05/20 25 Active metFORMIN XR (Glucophage-XR ) 500 MG 24 hr tabletIndicati ons:Type 2 diabetes mellitus with hyperglycemia, with long-term current use of insulin ([facility]) TAKE 1 TABLET BY MOUTH TWICE DAILY IN THE MORNING AND IN THE EVENING WITH MEALS 180 tablet 1 09/05/20 25 Active insulin glargine (Lantus SoloStar) 100 UNIT/ML penIndications :Type 2 diabetes mellitus with hyperglycemia, with long-term current use of insulin ([facility]) Inject 20 Units under the skin at bedtime. 15 mL 3 09/05/20 25 Active gabapentin (Neurontin) 100 MG capsuleIndicat ions:Periphera l nerve disease TAKE 1 CAPSULE BY MOUTH EVERY EVENING (for nerve pain) 90 capsule 1 04/26/20 23 2024 Discontinued(M ed list cleanup (will not trigger notification to Pharmacy)) metFORMIN XR (Glucophage-XR ) 500 MG 24 hr tabletIndicati ons:Type 2 diabetes mellitus with hyperglycemia, with long-term current use of insulin ([facility]) TAKE 1 TABLET BY MOUTH TWICE DAILY IN THE MORNING AND IN THE EVENING WITH MEALS 180 tablet 1 02/09/20 24 2024 Discontinued(R eorder (will not trigger notification to Pharmacy)) Lantus SoloStar 100 UNIT/ML penIndications :Type 2 diabetes mellitus with hyperglycemia, with long-term current use of insulin (HCC) Inject 10 Units under the skin at bedtime. 15 mL 3 02/09/20 24 2024 Discontinued(R eorder (will not trigger notification to Pharmacy)) atorvastatin (Lipitor) 40 MG tabletIndicati ons:Congestive heart failure, unspecified HF chronicity, unspecified heart failure type (HCC) Take 1 tablet (40 mg) by mouth at bedtime. 90 tablet 1 02/09/20 24 2024 Discontinued(M ed list cleanup (will not trigger notification to Pharmacy)) Dulaglutide (Trulicity) 1.5 MG/0.5ML solution auto-injector Inject 1.5 mg under the skin 1 (one) time per week. 2 mL 1 05/29/20 25 2024 Discontinued(D ose adjustment) Active Problems Problem Noted Date Diagnosed Date Hematuria 04/29/2025 Overview (07/06/2025): Following with [facility] - Dr. Cramer Assessment & [...] UA, confirmed with send out Following with [facility] Diabetic polyneuropathy asso ciated with [...] Followed by [facility] - Dr. James Hogan 10mg daily Psoriatic arthritis ([facility]/HCC) 08/30/2024 Overview (04/01/2025): Followed by [facility] Rheum - Dr. Garcia Med therapy: DMARD (Taltz) Previous tx: methotrexate and Enbrel (hx of [...] failure 11/26/2023 Overview (07/06/2025): Previously following with [facility], established with [facility] - Dr. Butcher April: Nuclear stress [...] Hospitalization for CHF exacerbation: Oct 2023 at [facility] - Reviewed condition and concerning signs/symptoms Pharmacotherapy: Aspirin 81mg daily Atorvastatin 40mg nightly Furosemide 40mg BID (RX nephrology) Spironolactone 25mg daily (RX cards) Jardiance 25mg daily Carvedilol 6.25mg BID Entresto 24-26mg BID Assessment & Plan (04/01/2025 7:07 PM EDT): Follow-up with [facility] as scheduled in April 2025. Reports they are already on wait list in case anything sooner becomes available. Assessment & Plan (01/27/2025 9:50 AM EDT): Cont current therapy, symptomatic SOB/BELL Referral to [facility] for further eval Assessment & Plan [...] following with renal for proteinuria -Established with [facility] Assessment & Plan (04/01/2025 7:01 PM EDT): - Initial BG reading [facility]. Repeat value HH s/p 10 units lispro. Re-check #3 resulted 436 s/p second dose of 10 units insulin lispro. Pt unable to void for UA. Discussed ED precautions. - Previous rx of Jardiance 10mg daily (rx through [employer] - unclear if currently taking) - No [facility] Says may have re-started on methotrexate but unsure. Will bring med list to next appt. -Pt was also referred to [facility] Derm Team, appt pending Assessment & Plan (04/12/2023 1:37 PM EDT): -Previous tx with methotrexate and Enbrel (hx of failed Humira tx in Rheum note 02/04/21) -Re-established with [facility] Nov 2021 Says may have re-started on methotrexate but unsure. Will bring med list to next appt. -Pt was also referred to [facility] Derm Team, appt pending Assessment & Plan (10/20/2022 9:18 AM EST): -Previous tx with methotrexate and Enbrel (hx of failed Humira tx in Rheum note 02/04/21) -Reports has not been taking any meddications for psoriasis in > 6 month, interested in re-establishing with specialists -Upcoming appt with [facility] Rheum Nov 2021 -Pt was also referred to [facility] Derm Team, appt pending Hypertension 06/13/2012 Assessment [...] reporting intermittent discomfort with mask Referral to [facility] Medicine for further eval and management Resolved Problems Problem Noted Date Diagnosed Date Resolved Date Retention of urine 02/26/2015 3 Elevated levels of transamin ase & lactic acid dehydrogenase 08/14/2012 10/20/2022 Encounters Date Type Department Care Team Description 09/05/2025 Orders Only GENERIC EXTERNAL DATA DEPARTMENT Provider, Generic External Data 09/05/2025 Telephone [facility] [address] [place] [address] Lindsay Nur, PharmD 09/05/2025 Travel 09/01/2025 Telephone [facility] [address] [place] [address] Marilee Cordero FNP 09/01/2025 Travel 08/26/2025 Telephone [facility] [address] [place] [address] Marilee Cordero FNP Transition Of Care (Tcm) 08/25/2025 Orders Only [facility] [address] [place] [address] Jamaica Roman MD Diabetic macular edema (HCC) (Primary Dx); Primary hypertension 08/20/2025 Telephone [facility] [address] [place] [address] Lindsay Nur PharmD 07/08/2025 Results Follow-Up [facility] [address] [place] [address] Marilee Cordero FNP Lipid Panel, Standard, Vitamin B12/Folate, Serum Panel, Methylmalonic Acid 07/04/2025 8:30 AM EDT Office Visit [facility] [address] [place] [address] Marilee Cordero FNP Type 2 diabetes mellitus [...] Generic External Data 07/04/2025 Travel 07/03/2025 Telephone [facility] [address] [place] [address] Marilee Cordero FNP chart prep 06/26/2025 Travel from Last 3 Months Immunizations Immunization Administration Dates Next Due Hep A, ped/adol, 2 dose 09/27/2005,03/24/2005 Hep B, Adolescent or Pediatric 09/27/2005,2004,03/24/2005 HepB-CpG 09/05/2025 Influenza injectable quadriv alent IIV4 with preservative 09/28/2016 Influenza injectable quadriv alent preservative free 08/11/2023,10/17/2022,09/17/2019 Influenza, IIV3, injectable 08/12/2014, 1 Influenza, Split (incl. shawna fied surface antigen) 07/09/2013,08/14/2012 Influenza, seasonal, injecta ble, preservative free 09/05/2025,08/30/2024 Moderna Covid-19 Vaccine 12+ 01/14/2022,03/03/20 21,02/03/2021 Pfizer Covid-19 Vaccine 12+ 09/05/2025 Pneumococcal Conjugate PCV 13 06/28/2018 Pneumococcal Conjugate [...] Sign Reading Time Taken Comments Blood Pressure 148/76 09/05/2025 1:24 PM EST Pulse 65 09/05/2025 1:24 PM EST Temperature 36.4 C (97.6 F) 07/04/2025 8:49 AM EDT Respiratory Rate 20 07/04/2025 8:49 AM EDT Oxygen Saturation 98% 09/05/2025 1:24 PM EST Inhaled Oxygen Concentration - - Weight 106 kg (232 lb 12.8 oz) 07/04/2025 8:49 A M EDT Height 182.9 cm (6') 07/04/2025 8:49 AM EDT Body Mass Index 31.57 07/04/2025 8:49 AM EDT Plan of Treatment Upcoming Encounters Date Type Department Care Team (Late st Contact Info) Description 10/02/2025 2:30 PM EST Medication Management [facility] [address] [place], [place] [phone] Lindsya Nur, PharmD [address], [place] [phone] Health Maintenance Due Date Last Done Comments CT Colonography 1970 Colonoscopy 1970 Colorectal Cancer Screening 1970 FIT DNA/Cologuard 1970 FIT 1970 FOBT 1970 Sigmoidoscopy 1970 Eye Exam 1980 Dental Prophylaxis 11/10/2012 05/09/2012, 0 12/13/2011, 07/22/2009 Dental Oral Exam 07/11/2014 01/07/2014 Dental X-Ray: Bitewings 08/12/2024 08/11/20, 01/07/2014, 10/01/2010, Additional history exists Diabetes: Urine Protein Screening 12/25/2024 09/05/2025, 12/25/2023, 09/13/2023, Additional history exists Depression Monitoring 07/29/2025 01/27/2025, 025 SDOH Screening 08/30/2025 08/30/2024 Diabetes: Hemoglobin A1C 09/26/2025 025, 03/31/2025, 01/27/2025, Additional history exists Hepatitis B Vaccines (2 of 2 - CpG 2-dose series) 10/03/2025 09/05/2025, 09/27/2005, 05/31/2005, Additional history exists Tobacco Screening 03/05/2026 03/05/2025 [...] Vaccine: 50+ Years Completed 03/31/2025, 06/28/2018, 09/30/2008 COVID-19 Vaccine Completed 09/05/2025, , 03/03/2021, Additional history exists Influenza Vaccine Completed 09/05/2025, , 08/11/2023, Additional history exists HIB Vaccines Aged Out [...] Date/Time Associated Diagnosis Comments COMPREHENSIVE METABOLIC PANEL Routine 09/05/2025 2:27 PM EST CBC WITH AUTO DIFFERENTIAL Routine 09/05/2025 2:27 PM EST URINE PROTEIN, TOTAL, RANDOM (W/O CREATININE) Routine 09/05/2025 2:21 PM EST CREATININE, RANDOM URINE Routine 09/05/2025 2:21 PM EST URINALYSIS, COMPLETE Routine 09/05/2025 2:21 PM EST SED RATE BY MODIFIED WESTERGREN Routine 07/04/2025 10:07 AM EDT C-REACTIVE PROTEIN Routine 07/04/2025 10 :07 AM EDT COMPREHENSIVE METABOLIC PANEL Routine 07/04/2025 10:07 AM EDT CBC WITH AUTO DIFFERENTIAL Routine 07/04/2025 10:07 AM EDT VITAMIN B12/FOLATE, SERUM PANEL Routine 07/04/2025 10:07 AM EDT Type 2 diabetes mellitus with hyperglycemia, with long-term current use of insulin ([facility]) METHYLMALONIC ACID Routine 07/04/2025 10 :07 AM EDT Type 2 diabetes mellitus with hyperglycemia, with long-term current use of insulin ([facility]) LIPID PANEL, STANDARD Routine 07/04/2025 10:07 AM EDT Type 2 diabetes mellitus with hyperglycemia, with long-term current use of insulin ([facility]) POCT GLYCATED HEMOGLOBIN, TOTAL Routine 06/26/2025 1:35 PM EDT Type 2 diabetes mellitus with hyperglycemia, with long-term current use of insulin ([facility]) HEPATITIS PANEL, GENERAL Routine 02/26/2025 7:32 AM EDT PANORAMIC RADIOGRAPHIC IMAGE Routine 03/18/2024 9:00 AM EDT HIV 1/2 ANTIGEN/ANTIBODY, FOURTH GENERATION W/RFL Routine 09/13/2023 7:53 AM EST Physical exam BITEWING - SINGLE RADIOGRAPHIC IMAGE Routine 08/11/2023 11:30 AM EDT PERIODIC ORAL EVALUATION - ESTABLISHED PATIENT Routine 01/07/2014 12:00 AM EDT PROPHYLAXIS - ADULT Routine 05/09/2012 1 2:00 AM EDT from Last 3 Months or Most Recently Relevant to Health Maintenance Results * (ABNORMAL) CBC auto differential (09/05/2025 2:27 PM EST) Only the most recent of2 resultswithin the time period is included. White Blood Count 6.0 4.8 - 10.8 X10*3/uL [facility] Red Blood Count 5.06 4.60 - 5.80 X10*6/uL [facility] Hemoglobin 14.2 14.0 - 18.0 g/dl [facility] Hematocrit 41.9(L) 42.0 - 52.0 % [facility] Mean Corpuscular Volume 82.8 80.0 - 98.0 fL [facility] Mean Corpuscular Hemoglobin 28.1 27.0 - 33.0 pg [facility] Mean Corpuscular HGB Conc 33.9 31.0 - 36.0 g/dl [facility] Red Cell Distribution Width 13.5 11.0 - 16.0 % [facility] Platelet Count 200 160 - 400 X10*3/uL [facility] Mean Platelet Volume 10.0 9.4 - 12.4 fL [facility] Neutrophils Percent Auto 81.8(H) 45 - 73 % [facility] Imm Gran Pct Auto 0.2 0.0 - 0.4 % [facility] Lymphocytes Percent Auto 9.3(L) 20 - 40 % [facility] Monocytes Percent Auto 6.5 2 - 11 % [facility] Eosinophils Percent Auto 1.7 0 - 4 % [facility] Basophils Percent Auto 0.5 0 - 2 % [facility] NRBC Pct Auto 0.0 0.0 - 0.2 /100WBC [facility] Neutrophils Absolute Auto 4.9 2.0 - 8.3 x10*3/uL [facility] Imm Gran Abs Auto 0.01 0.00 - 0.03 X10*3/uL [facility] Lymphocytes Absolute Auto 0.6(L) 1.2 - 4.9 X10*3/uL [facility] Monocytes Absolute Auto 0.4 0.1 - 1.2 X10*3/uL [facility] Eosinophils Absolute Auto 0.1 0.0 - 0.4 X10*3/uL [facility] Basophils Absolute Auto 0.0 0.0 - 0.2 X10*3/uL [facility] NRBC Abs Auto 0.000 0.0 - 0.012 X10*3/uL [facility] 09/05/2025 2:27 PM EST 09/05/2025 2:27 PM EST us Generic External Data Provider LAB BLOOD ORDERAB LES Final Result [facility] [address] [place] [address] [phone] * (ABNORMAL) Comprehensive Metabolic Panel (09/05/2025 2:27 PM EST) Only the most recent of2 resultswithin the time period is included. Sodium 134(L) 135 - 145 mmol/L [facility] Potassium 3.9 3.3 - 5.1 mmol/L [facility] Chloride 96 96 - 108 mmol/L [facility] Carbon Dioxide 27 22 - 29 mmol/L [facility] Anion Gap 15 12 - 20 [facility] Urea Nitrogen (BUN) 24(H) 9 - 16 mg/dL [facility] Creatinine, Serum 1.20 0.5 - 1.4 mg/dL [facility] Estimated Glomerular Filt Rate >60 [facility] Comment:Chronic Kidney Disea se: Estimated GFR < 60 mL/min/[id number] Kidney Disease: Estimated GFR < 15 mL/min/1.73m2 Glucose 634(HH) 60 - 115 mg/dL [facility] Comment:Critical value for G LUCOSE Results called to and read garthy: SOPHIA Person calling: NOEMI Date: 09/05/25 Time: 1516 Calcium 9.3 8.4 - 10.2 mg/dL [facility] Bilirubin, Total 0.5 0.0 - 1.0 mg/dL [facility] Aspartate Amino Transferase 18 5 - 37 U/L [facility] Alanine Aminotransferase 20 0 - 40 U/L [facility] Total Protein 6.8 6.5 - 8.0 g/dL [facility] Albumin Level 4.0 3.5 - 5.0 g/dL [facility] Alkaline Phosphatase 108 39 - 117 U/L [facility] 09/05/2025 2:27 PM EST 09/05/2025 2:27 PM EST us Generic External Data Provider LAB BLOOD ORDERAB LES Final Result Performing Organization Address [facility] de Phone Number [facility] [address] [place] [phone] * (ABNORMAL) Urine Protein, Total, Random without Creatinine (09/05/2025 2:21 PM EST) Protein, Total, Random Urine 172(H) <12 mg/dL [facility] 09/05/2025 2:21 PM EST 09/05/2025 2:37 PM EST Generic External Data Provider LAB URINE ORDERAB LES Final Result Performing Organization Address [facility] Phone Number [facility] [address] [place] [phone] * Creatinine, Random Urine (09/05/2025 2:21 PM EST) Creatinine, Urine 23.89 mg/dL [facility] 09/05/2025 2:21 PM EST 09/05/2025 2:37 PM EST Generic External Data Provider LAB URINE ORDERAB LES Final Result Performing Organization Address [facility] de Phone Number [facility] [address] [place] [phone] * (ABNORMAL) Urinalysis Complete (09/05/2025 2:21 PM EST) Color Urine Yellow [facility] Appearance Urine Clear [facility] PH 6.0 5.0 - 9.0 [facility] Glucose Urine UA >=1000(A) Negative mg/dL [facility] Urine Blood Trace(A) Negative [facility] Specific [place] - Urine >=1.030(H) 1.005 - 1.025 [facility] Urine Protein 300 (3+)(A) Neg-Trace mg/dL [facility] Urine Ketones Negative Negative mg/dL [facility] Nitrite Urine Negative Negative [facility] Leukocyte Esterase Urine Negative Negative [facility] RBC Urine 0-2 0 - 2 /HPF [facility] Urine WBC 0-5 0 - 5 /HPF [facility] Urine Squamous Epithelial Cell 0-2 0 - 2 /HPF [facility] Urine Bacteria None Seen None Seen [facility] Hyaline Casts, Urine 0-2 0 - 2 /LPF [facility] 09/05/2025 2:21 PM EST 09/05/2025 2:37 PM EST us Generic External Data Provider LAB URINE ORDERAB LES Final Result Performing Organization Address [facility]/ZIP Co de Phone Number [facility] [address] [place] [phone] * Vitamin B12/Folate, Serum Panel (07/04/2025 10:07 AM EDT) Vitamin B12 237 200 - 900 pg/mL [facility] Comment:NORMAL 200-900 PG/ML INDETERMINATE 160-199 PG/ML DEFICIENT < 160 PG/ML Folate 9.4 > or = 4.0 ng/mL [facility] Comment:Reference Values:> o r = 4.0 ng/mL< 4.0 ng/mL suggests folate deficiency Methotrexate, aminopterin and folinic acid(leucovorin) are chemotherapeutic agents whose molecularstructures are similar to folate; therefore, the Architectfolate assay cannot be used for patients using these drugs. Blood Venous blood specimen / Unknown 07/04/2025 10:07 AM EDT 07/04/2025 11:47 AM EDT us Marilee Cordero SECURITY REP LAB BLOOD ORDERABLES Final Res ult Performing Organization Address [facility]/ZIP Co de Phone Number [facility] [address] [place] [phone] * Methylmalonic Acid (07/04/2025 10:07 AM EDT) Methylmalonic Acid 225 55 - 335 nmol/L [facility] Comment: Serum methylmalonic acid (MMA) [...] outcomes,such as neural tube defects and intrauterine growthrestriction.[facility] utilized Multi-Modal Decomposition(MMD) analysis to establish first and second trimester-specific MMA reference intervals in , as givenbelow:MMA, First trimester (<13 wks gestation): 58-167 nmol/LMMA, Second trimester (13-23 wks gestation):63-241 nmol/LThis test was developed and its analytical performancecharacteristics have been determined by [employer]. It has not been cleared or approved by theFDA. This assay has been validated pursuant to the CLIAregulations and is used for clinical purposes.THIS TEST WAS PERFORMED AT:[employer] [id number] [place] [id number] RANDHAWA MD,PHD Blood Venous blood specimen / Unknown 07/04/2025 10:07 AM EDT 07/04/2025 11:47 AM EDT us Marilee Cordero SECURITY REP LAB BLOOD ORDERABLES Final Res ult [facility] [address] [place] [phone] [phone] * (ABNORMAL) Sed Rate by Modified Wilbur (07/04/2025 10:07 AM EDT) Erythrocyte Sedimentation Rate 28(H) 0 - 15 MM/HR [facility] Comment:Patients with polycy themia and many hemoglobin abnormalitiesmay have depressed sed rates whereas patients with anemiamay have elevated sed rates. 07/04/2025 10:0 7 AM EDT 07/04/2025 11:47 AM EDT Generic External Data Provider LAB BLOOD ORDERAB LES Final Result Performing Organization Address [facility]/ZIP Co de Phone Number [facility] [address] [place] [phone] * C-reactive Protein (07/04/2025 10:07 AM EDT) C Reactive Protein 0.10 < or = 0.50 mg/dL [facility] 07/04/2025 10:0 7 AM EDT 07/04/2025 11:47 AM EDT Generic External Data Provider LAB BLOOD ORDERAB LES Final Result Performing Organization Address [facility] Co de Phone Number [facility] [address] [place] [phone] * (ABNORMAL) Lipid Panel, Standard (07/04/2025 10:07 AM EDT) Triglycerides 129 <150 mg/dL [facility] Comment:Desirable Triglyceri de: less than 150 mg/dLBorderline High Triglyceride 150-199 mg/dLHigh Triglyceride: 200-499 mg/dLVery High Triglyceride: greater than or equal to 5OO mg/dL Cholesterol 158 <200 mg/dL [facility] Comment:Desirable Cholestero l: less than 200 mg/dLBorderline High Cholesterol: 200-239 mg/dLHigh Cholesterol: greater than 239 mg/dL LDL Cholesterol Calculated 104(H) <100 mg/dL [facility] Comment:Desirable LDL: less than 100 [...] EDT 07/04/2025 11:47 AM EDT Marilee Cordero SECURITY REP LAB BLOOD ORDERABLES Final Res ult Performing Organization Address [facility] Co de Phone Number [facility] [address] [place] [phone] * (ABNORMAL) POCT A1c (06/26/2025 1:35 PM EDT) Pathologist [facility] Hemoglobin A1C 10.8(A) 4.0 - 5.7 % QC Media Lot # [id number] Lot# Expiration Date Blood 06/26/2025 1:35 PM EDT Marilee Phalen SECURITY REP POINT OF CARE TEST ENTER/EDIT ORDERABLES Final Result * Hepatitis Panel, General (02/26/2025 7:32 AM EDT) Pathologist [facility] Hepatitis A IgM Nonreactive Nonreactive [facility] Comment:IgM antibodies to GIBSON V not detected; does not exclude earlyacute or recovered HAV infection. ~Hepatitis B Surface Antibody NONREACTIVE Nonreactive [facility] Comment:Nonreactive: < 8.00 mIU/mL Hepatitis B Core Antibody Nonreactive Nonreactive [facility] Hepatitis C Antibody Nonreactive Nonreactive [facility] Comment:Antibodies to HCV no t detected; does not exclude early acuteHCV infection. Hepatitis B Surface Ag Negative Negative [facility] 02/26/2025 7:32 AM EDT 02/26/2025 7:32 AM EDT Generic External Data Provider LAB BLOOD ORDERAB LES Final Result Performing Organization Address [facility]/ZIP Co de Phone Number [facility] [address] [place] [phone] * HIV-1/2 Antigen and Antibodies, Fourth Generation, with Reflexes (09/13/2023 7:53 AM EST) HIV AB/AG Nonreactive Nonreactive [facility] Comment:HIV-1 p24 Ag and/or HIV-1/HIV-2 Ab not detected.A test result that is nonreactive does not exclude thepossibility of exposure to or infection with HIV-1 and/orHIV-2. Nonreactive results in this assay for individualswith prior exposure to HIV-1 and/or HIV-2 may be due toantigen and antibody levels that are below the limit ofdetection of this assay.The [employer] HIV Ag/Ab Combo assay result andsupplemental assay results should be interpreted inconjunction with the patient's clinical presentation,history and other laboratory results. If the results areinconsistent with clinical evidence, additional testing issuggested to confirm the result. Blood Venous blood specimen / Unknown 09/13/2023 7:53 AM EST 09/13/2023 7:53 AM EST us Marilee Cordero [facility] LAB BLOOD ORDERABLES Final Res ult [facility] [address] [place] [address] [phone] from Last 3 Months or Most Recently Relevant to Health Maintenance Insurance [facility] - HSN PARTIAL (MEDICAID) Member Subscriber Plan / Payer (Ef fective 2023-Present) Name:Les Joesph Gonzalez Relation to Subscriber:Self Name:Joesph Saldana Payer ID:Not on file Group ID:Not on file Type:Not on file Address: [address] [address] Care Teams Architectural Examiner Relationship Specialty Start Date End Date Marilee Cordero FNP [address] [place] [address] PCP - General Family Medicine 03/23/23 Cristo Garcia MD [address] [place] [phone] Rheumatology 09/01/24 Yoselyn Lyons [address] [place] [address] Ophthalmology 09/01/24 Balbir Don [address] [facility] [address] [place] [address] Sleep Medicine 09/01/24 Lindsay Nur PharmD [address] [place] [address] Pharmacist Pharmacy 05/29/25 Meño Butcher MD [address] [place] [address] 3rd [place] [address] Cardiology 07/06/25 Dr. Ramirez 100 [facility] 200 [place] [address] Nephrology 09/01/24
--- OUTSIDE RECORDS SUMMARY | 2025-09-05 15:58 | XMS_ITS | Encounter Summary ---
Author Organization [employer] Address [address] [facility] 7t [place] [address] Care Team Providers Care Home Appliance Installer Name Role Phone Marilee Cordero BRANDEN Primary Care Provider [phone] Cristo Garcia MD Unavailable Yoselyn Lyons Unavailable Unavailable Balbir Don Unavailable Lindsay Nur PharmD Unavailable [phone] Meño Butcher MD Unavailable [phone] Encounter Details Date Type Department Care Team (Late st Contact Info) Description 09/05/2025 Orders Only GENERIC EXTERNAL DATA [...] Description 10/02/2025 2:30 PM EST Medication Management [facility] [address] [place] [address] Lindsay Nur, PharmD [address] [place] [address] documented as of this encounter Procedures Procedure Name Priority Date/Time Associated Diagnosis Comments CBC WITH AUTO DIFFERENTIAL Routine 09/05/2025 2:27 PM EST COMPREHENSIVE METABOLIC PANEL Routine 09/05/2025 2:27 PM EST URINE PROTEIN, TOTAL, RANDOM (W/O CREATININE) Routine 09/05/2025 2:21 PM EST CREATININE, RANDOM URINE Routine 09/05/2025 2:21 PM EST URINALYSIS, COMPLETE Routine 09/05/2025 2:21 PM EST documented in this encounter Results * (ABNORMAL) Comprehensive Metabolic Panel (09/05/2025 2:27 PM EST) Sodium 134(L) 135 - 145 mmol/L [facility] Potassium 3.9 3.3 - 5.1 mmol/L [facility] Chloride 96 96 - 108 mmol/L [facility] Carbon Dioxide 27 22 - 29 mmol/L [facility] Anion Gap 15 12 - 20 [facility] Urea Nitrogen (BUN) 24(H) 9 - 16 mg/dL [facility] Creatinine, Serum 1.20 0.5 - 1.4 mg/dL [facility] Estimated Glomerular Filt Rate >60 [facility] Comment:Chronic Kidney Disea se: Estimated GFR < 60 mL/min/1.24u7Dcrdai Kidney Disease: Estimated GFR < 15 mL/min/1.73m2 Glucose 634(HH) 60 - 115 mg/dL [facility] Comment:Critical value for G LUCOSE Results called to and read corinne CORTES Person calling: NOEMI Date: 09/05/25 Time: 1516 Calcium 9.3 8.4 - 10.2 mg/dL [facility] Bilirubin, Total 0.5 0.0 - 1.0 mg/dL [facility] Aspartate Amino Transferase 18 5 - 37 U/L [facility] Alanine Aminotransferase 20 0 - 40 U/L [facility] Total Protein 6.8 6.5 - 8.0 g/dL [facility] Albumin Level 4.0 3.5 - 5.0 g/dL [facility] Alkaline Phosphatase 108 39 - 117 U/L [facility] 09/05/2025 2:27 PM EST 09/05/2025 2:27 PM EST us Generic External Data Provider LAB BLOOD ORDERAB LES Final Result [facility] [address] [place] [address] [phone] * (ABNORMAL) CBC auto differential (09/05/2025 2:27 PM EST) White Blood Count 6.0 4.8 - 10.8 X10*3/uL [facility] Red Blood Count 5.06 4.60 - 5.80 X10*6/uL [facility] Hemoglobin 14.2 14.0 - 18.0 g/dl [facility] Hematocrit 41.9(L) 42.0 - 52.0 % [facility] Mean Corpuscular Volume 82.8 80.0 - 98.0 fL [facility] Mean Corpuscular Hemoglobin 28.1 27.0 - 33.0 pg [facility] Mean Corpuscular HGB Conc 33.9 31.0 - 36.0 g/dl [facility] Red Cell Distribution Width 13.5 11.0 - 16.0 % [facility] Platelet Count 200 160 - 400 X10*3/uL [facility] Mean Platelet Volume 10.0 9.4 - 12.4 fL [facility] Neutrophils Percent Auto 81.8(H) 45 - 73 % [facility] Imm Gran Pct Auto 0.2 0.0 - 0.4 % [facility] Lymphocytes Percent Auto 9.3(L) 20 - 40 % [facility] Monocytes Percent Auto 6.5 2 - 11 % [facility] Eosinophils Percent Auto 1.7 0 - 4 % [facility] Basophils Percent Auto 0.5 0 - 2 % [facility] NRBC Pct Auto 0.0 0.0 - 0.2 /100WBC [facility] Neutrophils Absolute Auto 4.9 2.0 - 8.3 x10*3/uL [facility] Imm Gran Abs Auto 0.01 0.00 - 0.03 X10*3/uL [facility] Lymphocytes Absolute Auto 0.6(L) 1.2 - 4.9 X10*3/uL [facility] Monocytes Absolute Auto 0.4 0.1 - 1.2 X10*3/uL [facility] Eosinophils Absolute Auto 0.1 0.0 - 0.4 X10*3/uL [facility] Basophils Absolute Auto 0.0 0.0 - 0.2 X10*3/uL [facility] NRBC Abs Auto 0.000 0.0 - 0.012 X10*3/uL [facility] 09/05/2025 2:27 PM EST 09/05/2025 2:27 PM EST Generic External Data Provider LAB BLOOD ORDERAB LES Final Result Performing Organization Address [facility] Phone Number [facility] [address] [place] [phone] * (ABNORMAL) Urine Protein, Total, Random without Creatinine (09/05/2025 2:21 PM EST) Protein, Total, Random Urine 172(H) <12 mg/dL [facility] 09/05/2025 2:21 PM EST 09/05/2025 2:37 PM EST Generic External Data Provider LAB URINE ORDERAB LES Final Result Performing Organization Address [facility] Phone Number [facility] [address] [place] [phone] * Creatinine, Random Urine (09/05/2025 2:21 PM EST) Creatinine, Urine 23.89 mg/dL [facility] 09/05/2025 2:21 PM EST 09/05/2025 2:37 PM EST Generic External Data Provider LAB URINE ORDERAB LES Final Result Performing Organization Address [facility] Phone Number [facility] [address] [place] [phone] * (ABNORMAL) Urinalysis Complete (09/05/2025 2:21 PM EST) Color Urine Yellow [facility] Appearance Urine Clear [facility] PH 6.0 5.0 - 9.0 [facility] Glucose Urine UA >=1000(A) Negative mg/dL [facility] Urine Blood Trace(A) Negative [facility] Specific [place] - Urine >=1.030(H) 1.005 - 1.025 [facility] Urine Protein 300 (3+)(A) Neg-Trace mg/dL [facility] Urine Ketones Negative Negative mg/dL [facility] Nitrite Urine Negative Negative [facility] Leukocyte Esterase Urine Negative Negative [facility] RBC Urine 0-2 0 - 2 /HPF [facility] Urine WBC 0-5 0 - 5 /HPF [facility] Urine Squamous Epithelial Cell 0-2 0 - 2 /HPF [facility] Urine Bacteria None Seen None Seen [facility] Hyaline Casts, Urine 0-2 0 - 2 /LPF [facility] 09/05/2025 2:21 PM EST 09/05/2025 2:37 PM EST us Generic External Data Provider LAB URINE ORDERAB LES Final Result [facility] [address] [place] [address] [phone] documented in this encounter Visit Diagnoses Not on filedocumented in this encounter Additional Health Concerns Assessment Noted Time PHQ-9 Depression Total Score: 13 025 8:59 AM EDT documented as of this encounter Care Teams Home Appliance Installer Relationship Specialty Start Date End Date Marilee Cordero FNP [address] [place] [address] PCP - General Family Medicine 03/23/23 Cristo Garcia MD [address] [place] [address] [address] [place] [address] Rheumatology 09/01/24 Yoselyn Lyons [address] [place] [address] Ophthalmology 09/01/24 Balbir Don [address] [facility] [address] [place] [address] Sleep Medicine 09/01/24 Lindsay Nur, PharmD [address] [place] [address] Pharmacist Pharmacy 05/29/25 Meño Butcher MD [address] [place] [address] 3rd [place] [address] Cardiology 07/06/25 Dr. Ramirez [address] [place] [phone] Nephrology 09/01/24 documented as of this encounter
--- OUTSIDE RECORDS SUMMARY | 2025-09-05 15:58 | XMS_ITS | Encounter Summary ---
Author Organization [employer] Address [address] [facility] 7t [place] [address] Care Team Providers Care Plane Tableman Name Role Phone Marilee Cordero PAYROLL TAX SPECIALIST Primary Care Provider [phone] Cristo Garcia MD Unavailable Yoselyn Lyons Unavailable Unavailable Balbir Don Unavailable Lindsay Nur PharmD Unavailable [phone] Meño Butcher MD Unavailable [phone] Encounter Details Date Type Department Care Team (Late st Contact Info) Description 09/01/2025 Telephone [facility] [address] [place], [place] [phone] Marilee Cordero FNP [address] [place], [place] [phone] Social History Tobacco Use Types Packs/Day Years [...] Description 10/02/2025 2:30 PM EST Medication Management [facility] [address] [place] [address] Lindsay Nur PharmD [address] [place] [address] documented as of this encounter Visit Diagnoses Not on filedocumented in this encounter Additional Health Concerns Assessment Noted Time PHQ-9 Depression Total Score: 13 025 8:59 AM EDT documented as of this encounter Care Teams Plane Tableman Relationship Specialty Start Date End Date Marilee Cordero FNP [address] [place] [address] PCP - General Family Medicine 03/23/23 Cristo Garcia MD [address] [place] [address] Rheumatology 09/01/24 Yoselyn Lyons [address] [place] [address] Ophthalmology 09/01/24 Balbir Don [address] [facility] [address] [place] [address] Sleep Medicine 09/01/24 Lindsay Nur PharmD [address] [place] [address] Pharmacist Pharmacy 05/29/25 Meño Butcher MD [address] [place] [address] 3rd [place] [address] Cardiology 07/06/25 Dr. Ramirez [address] [place] [address] [address] [place] [address] Nephrology 09/01/24 documented as of this encounter
--- OUTSIDE RECORDS SUMMARY | 2025-09-05 15:58 | XMS_ITS | Encounter Summary ---
Author Organization [employer] Address [address] [facility] 7t [place] [address] Care Team Providers Care Area Counselor Name Role Phone Marilee Cordero ROLL MILL OPERATOR Primary Care Provider [phone] Cristo Garcia MD Unavailable Doris Candelario Unavailable [phone] Yoselyn Lyons Unavailable Unavailable Balbir Don Unavailable Lindsay NurD Unavailable [phone] Meño Butcher MD Unavailable [phone] Encounter Details Date Type Department Care Team (Late st Contact Info) Description 08/11/2023 Abstract [facility] [address] [place], [place] [phone] Gavino Lacey, DIANA [address] [place], [place] [phone] Social History Tobacco Use Types Packs/Day Years [...] Description 10/02/2025 2:30 PM EST Medication Management [facility] [address] [place] [address] Lindsay Nur, PharmD [address] [place] [address] documented as of this encounter Visit Diagnoses Not on filedocumented in this encounter Additional Health Concerns Assessment Noted Time PHQ-9 Depression Total Score: 1 10/17/20 22 10:05 AM EST documented as of this encounter Care Teams Area Counselor Relationship Specialty Start Date End Date Marilee Cordero FNP [address] [place] [address] PCP - General Family Medicine 03/23/23 Cristo Garcia MD [address] [place] [address] [place] [address] Rheumatology 09/01/24 Doris Candelario [address] [place] [address] Cardiology 09/01/24 07/05/25 Yoselyn Lyons [address] [place] [address] Ophthalmology 09/01/24 Balbir Don 22 [facility] 301 [place] [address] Sleep Medicine 09/01/24 Lindsay Nur PharmD [address] [place] [address] Pharmacist Pharmacy 05/29/25 Meño Butcher MD 11 [facility] 3rd [place] [address] Cardiology 07/06/25 Dr. Ramirez 100 [facility] 200 [place] [address] Nephrology 09/01/24 [facility] 03/18/25 05/04/25 documented as of this encounter
--- OUTSIDE RECORDS SUMMARY | 2025-09-05 15:58 | XMS_ITS | Encounter Summary ---
Author Organization [employer] Address [address] [facility] 7t [place] [address] Care Team Providers Care Nail Kegger Name Role Phone Marilee Cordero Primary Care Provider [phone] Cristo Garcia MD Unavailable Doris Candelario Unavailable [phone] Yoselyn Lyons Unavailable Unavailable Balbir Don Unavailable Lindsay Nur PharmD Unavailable [phone] Meño Butcher MD Unavailable Reason for Referral * Consultation (Routine) - Closed Specialty Diagnoses / Procedures Referred By Contzena t Referred To Contact Nephrology Diagnoses Albuminuria Marilee Cordero FNP [address] [place] [address] Phone: tel: fax: Bayron Marshall MD 100 [facility] 200 [place] [address] Phone: tel: fax: Referral ID Status Reason Start Date Expiration Date V isits Requested Visits Authorized [id number] Closed Specialty Services Required 12/29/2023 12/28/2024 1 1 Encounter Details Date Type Department Care Team (Late st Contact Info) Description 12/29/2023 Orders Only [facility] [address] [place], [place] [phone] Marilee Cordero FNP [address] [place], [place] [phone] Albuminuria (Primary Dx) Social History Tobacco Use [...] Description 10/02/2025 2:30 PM EST Medication Management [facility] [address] [place] [address] Lindsay Nur, PharmD [address] [place] [address] documented as of this encounter Procedures Procedure [...] documented as of this encounter Care Teams Nail Kegger Relationship Specialty Start Date End Date Marilee Cordero FNP [address] [place] [address] PCP - General Family Medicine 03/23/23 Cristo Garcia MD [address] [place] [address] Rheumatology 09/01/24 Doris Candelario [address] [place] [address] Cardiology 09/01/24 07/05/25 Yoselyn Lyons [address] [place] [address] Ophthalmology 09/01/24 Balbir Don 22 [facility] 301 [place] [address] Sleep Medicine 09/01/24 Lindsay Nur PharmD [address] [place] [address] Pharmacist Pharmacy 05/29/25 Meño Butcher MD [address] [place] [address] 3rd [place] [address] Cardiology 07/06/25 Dr. Ramirez 100 [facility] 200 [place] [address] Nephrology 09/01/24 Noman [facility] 03/18/25 05/04/25 documented as of this encounter
--- OUTSIDE RECORDS SUMMARY | 2025-09-05 15:59 | XMS_ITS | Clinical Summary ---
Author Organization [facility] Address [address] [phone] Phone Care Team Providers Care Assistant Name Role Phone Marilee Cordero BRANDEN Primary Care Provider [phone] Allergies No known active allergies Medications amLODIPine [...] [facility] [place] [facility] Dr. Maturostrakul Jardiance 10mg daily Congestive heart failure 11/26/2023 Overview (04/03/2024): [facility]: Nuclear stress test: Negative ECG portion of the stress test. Myocardial perfusion imaging is normal with no evidence or fixed or reversible perfusion defects. Moderately reduced global LV function? with resting left ventricular EF of 33%, and post stress LVEF 36%. LV size moderately dilated. No evidence of transient ischemic dilation. Hospitalization for CHF exacerbation: Oct 2023 at [facility] Last Assessment & Plan: - [...] Psoriatic arthritis 06/04/2012 Overview (03/26/2025): Followed by [facility] - Dr. Garcia Med therapy: DMARD, Derik Previous tx: methotrexate and Enbrel (hx of failed Humira tx in Rheum note 02/04/21). Plan to hold methotrexate with hx cardiac conditions Obstructive sleep apnea syndrome 06/04/2012 Overview (03/26/2025): Following with [facility] - Dr. Balbir Don [...] to 49 Years) Discontinued 06/28/2018, 09/30/2008 Insurance [facility] ([id number]) [facility] ([id number]) Care Teams Assistant Relationship Specialty Start Date End Date Marilee Cordero FNP [address] [place] [address] PCP - General 01/08/24
--- OUTSIDE RECORDS SUMMARY | 2025-09-05 15:59 | XMS_ITS | Clinical Summary ---
Author Organization [facility] [place] [address] Phone Care Team Providers Care Tower Director Name Role Phone Physician, Pcp Unknown Primary [...] 06/07/2025 2:36 PM EDT Hospital Encounter [facility] Intermediate Care Unit [address] [place] [address] Bayron Hester MD Shapiro, Benjamin, [...] (hyper tension) DM2 (diabetes mellitus, type 2) ([facility] V24, [facility] V28) 06/04/2012 DX:DM2 (diabetes mellitus, t ype 2) ([facility]) Obstructive sleep apnea 06/04/2012 DX:Obstr uctive sleep apnea Psoriatic arthritis ([facility] V24, [facility] V28) 06/04/2012 DX:Psoriatic arthritis ([facility] [...] of4 resultswithin the time period is included. [facility] Glucose POCT 271(H) 70 - 100 mg/dL 06/07/2025 11:44 AM EDT [facility] Blood Capillary blood specimen / Unknown 06/07/2025 11:44 AM EDT 06/07/2025 11:45 AM EDT Corey Willingham MD LAB POINT O F CARE TEST DOCKED DEVICE UNSOLICITED RESULTS Final Result [facility] [address] [place] [address], [place] [phone] * Troponin I high sensitivity (06/07/2025 5:51 AM EDT) Only the most recent of4 resultswithin the time period is included. [facility] High Sensitivity Troponin I 38 <=79 [...] esult [facility] [address] [place] [address], [place] [phone] * (ABNORMAL) Complete blood count (06/07/2025 5:51 AM EDT) [facility] WBC 5.7 4.8 - 10.8 K/mcL LAB HEMETOLOGY METHOD 06/07/2025 8:00 AM [facility] RBC 5.00 4.50 - 5.50 M/mcL LAB HEMETOLOGY METHOD 06/07/2025 8:00 AM [facility] Hemoglobin 13.6 13.5 - 17.5 g/dL LAB HEMETOLOGY METHOD 06/07/2025 8:00 AM [facility] Hematocrit 41.7(L) 42.0 - 54.0 % LAB HEMETOLOGY METHOD 06/07/2025 8:00 AM [facility] MCV 84.2 79.0 - 98.0 FL LAB HEMETOLOGY METHOD 06/07/2025 8:00 AM [facility] MCH 27.5 27.0 - 32.0 pcg LAB HEMETOLOGY METHOD 06/07/2025 8:00 AM [facility] MCHC 32.6 32.0 - 37.0 g/dL LAB HEMETOLOGY METHOD 06/07/2025 8:00 AM [facility] RDW 13.6 11.0 - 15.0 % LAB HEMETOLOGY METHOD 06/07/2025 8:00 AM [facility] Platelets 243 130 - 400 [...] R esult [facility] [address] [place] [address], [place] [phone] * (ABNORMAL) Magnesium (06/07/2025 5:51 AM EDT) Magnesium 2.7(H) 1.9 - 2.6 mg/dL LAB CHEMISTRY METHOD 06/07/2025 6:58 AM EDT [facility] Blood Venous blood specimen / Unknown Venipuncture / Unknown 06/07/2025 5:51 AM EDT 06/07/2025 6:23 AM EDT Hyacinth DORSEY LAB BLOOD ORDERABLES Final R esult [facility] [address] [place] [address], [place] [phone] * (ABNORMAL) Basic metabolic panel (06/07/2025 5:51 AM EDT) Only the most recent of2 resultswithin the time period is included. Sodium 139 133 - 145 mmol/L LAB CHEMISTRY METHOD 06/07/2025 6:58 AM [facility] Potassium 3.6 3.5 - 5.5 mmol/L LAB CHEMISTRY METHOD 06/07/2025 6:58 AM [facility] Chloride 99 96 - 110 mmol/L LAB CHEMISTRY METHOD 06/07/2025 6:58 AM [facility] CO2 35(H) 21 - 32 mmol/L LAB CHEMISTRY METHOD 06/07/2025 6:58 AM [facility] Anion Gap 5 3 - 11 LAB CHEMISTRY METHOD 06/07/2025 6:58 AM [facility] Glucose 200(H) 70 - 100 mg/dL LAB CHEMISTRY METHOD 06/07/2025 6:58 AM [facility] BUN 29(H) 5 - 25 mg/dL LAB CHEMISTRY METHOD 06/07/2025 6:58 AM [facility] Creatinine 1.20 0.70 - 1.30 mg/dL LAB CHEMISTRY METHOD 06/07/2025 6:58 AM [facility] eGFR 71 >=60 mL/min/1. 73m2 LAB CHEMISTRY METHOD 06/07/2025 6:58 AM [facility] Comment:Calculation based on the Chronic Kidney Disease Epidemiology Collaboration (CKD-EPI) equation refit without adjustment for race. BUN/Creatinine Ratio 24.2 LAB CHEMISTRY METHOD 06/07/2025 6:58 AM [facility] Calcium 9.2 8.5 - 10.5 mg/dL LAB CHEMISTRY METHOD 06/07/2025 6:58 AM [facility] Blood Venous blood specimen / Unknown Venipuncture / Unknown 06/07/2025 5:51 AM EDT 06/07/2025 6:23 AM EDT us Hyacinth DORSEY LAB BLOOD ORDERABLES Final R esult [facility] [address] [place] [address], [place] [phone] * SST tube (06/06/2025 7:06 PM EDT) Pathologist [facility] Extra Tube Hold for add-ons. 06/06/2025 9:01 PM EDT [facility] Comment:Auto resulted. Blood Venous blood specimen / Unknown 06/06/2025 7:06 PM EDT 06/06/2025 7:26 PM EDT us Danny Larose DO LAB BLOOD ORDERABLES Final R esult Performing Organization Address [facility] Co de Phone Number [facility] [address] [place] [address], [place] [phone] * Light blue tube (06/06/2025 7:06 PM EDT) [facility] Extra Tube Hold for add-ons. 06/06/2025 9:01 PM EDT [facility] Comment:Auto resulted. Blood Venous blood specimen / Unknown 06/06/2025 7:06 PM EDT 06/06/2025 7:26 PM EDT us Danny Larose DO LAB BLOOD ORDERABLES Final R esult Performing Organization Address City/[facility]/ZIP Co de Phone Number [facility] [address] [place] [address], [place] [phone] * Respiratory virus panel molecular study (06/06/2025 3:52 PM EDT) Pathologist [facility] Adenovirus Detection by PCR Not Detected Not [...] PM EDT Testing was performed using the [employer] Respiratory Pathogen PCR Assay. All results must [...] Final Result [facility] [address] [place] [address], * CT Angio Chest wo and/or w Contrast (06/06/2025 2:42 PM EDT) Anatomical Region Laterality Modality Body Computed Tomogra phy 06/06/2025 3:12 PM EDT Impressions 06/06/2025 3:19 PM EDT No acute pulmonary embolism. -------- FINAL REPORT -------- Dictated By: Ambreen Haung Dictated Date: 06/06/2025 15:12 ET Assigned Physician: Ambreen Huang Reviewed and Electronically Signed By: Ambreen Huang Signed Date: 06/06/2025 15:19 ET Workstation ID: [id number] Transcribed By: Self Edit Transcribed Date: 06/06/2025 [...] Signed Date: 06/06/2025 15:19 ET Workstation ID: [id number] Transcribed By: Self Edit Transcribed Date: 06/06/2025 [...] Final Result [facility] [address] [place] [address], * XR Chest 1 View (06/06/2025 11:04 AM EDT) Anatomical Region Laterality Modality Body Radiographic Aleida ging 06/06/2025 11:0 7 AM EDT Impressions 06/06/2025 11:08 AM EDT No acute pulmonary disease. Pulmonary vascular congestion consistent with congestive heart failure has resolved since 02/15/2025. Cardiomegaly is stable. Code 94357 -------- FINAL REPORT -------- Dictated By: Ceasar Lopez Dictated Date: 06/06/2025 11:07 ET Assigned Physician: Ceasar Lopez Reviewed and Electronically Signed By: Ceasar Lopez Signed Date: 06/06/2025 11:08 ET Workstation ID: [id number] Transcribed By: Self Edit Transcribed Date: 06/06/2025 [...] has resolved since 02/15/2025. Cardiomegaly isstable. Code 85199 -------- FINAL REPORT -------- Dictated By: Ceasar Lopez Dictated Date: 06/06/2025 11:07 ET Assigned Physician: Ceasar Lopez Reviewed and Electronically Signed By: Ceasar Lopez Signed Date: 06/06/2025 11:08 ET Workstation ID: [id number] Transcribed By: Self Edit Transcribed Date: 06/06/2025 11:07 ET us Bayron Hester MD IMG XR PROCEDURES Final Res ult * ECG 12 lead (06/06/2025 10:54 AM EDT) Ventricular Rate ECG 65 BPM GEMUSE Atrial Rate 65 BPM GEMUSE P-R Interval 144 ms GEMUSE QRS Duration 78 ms GEMUSE Q-T Interval 438 ms GEMUSE QTc 455 ms GEMUSE P Wave [place] 26 degrees GEMUSE R [place] 4 degrees GEMUSE T [place] 116 degrees GEMUSE ECG Interpretation Normal sinus [...] K/mcL LAB [facility] RBC 5.40 4.50 - 5.50 M/mcL LAB HEMETOLOGY METHOD 06/06/2025 10:58 AM EDT [facility] Hemoglobin 15.3 13.5 - 17.5 g/dL LAB HEMETOLOGY METHOD 06/06/2025 10:58 AM [facility] Hematocrit 44.2 42.0 - 54.0 % LAB HEMETOLOGY METHOD 06/06/2025 10:58 AM EDT [facility] MCV 81.4 79.0 - 98.0 FL LAB HEMETOLOGY METHOD 06/06/2025 10:58 AM [facility] MCH 28.2 27.0 - 32.0 pcg LAB HEMETOLOGY METHOD 06/06/2025 10:58 AM [facility] MCHC 34.6 32.0 - 37.0 g/dL LAB HEMETOLOGY METHOD 06/06/2025 10:58 AM [facility] RDW 13.2 11.0 - 15.0 % LAB HEMETOLOGY METHOD 06/06/2025 10:58 AM [facility] Platelets 230 130 - 400 K/mcL LAB HEMETOLOGY METHOD 06/06/2025 10:58 AM [facility] MPV 9.7 7.0 - 11.0 FL LAB HEMETOLOGY METHOD 06/06/2025 10:58 AM [facility] NRBC 0.0 <1.0 % LAB HEMETOLOGY METHOD 06/06/2025 10:58 AM [facility] NRBC Absolute 0.00 <0.10 K/[facility] LAB HEMETOLOGY METHOD 06/06/2025 10:58 AM [facility] Neutrophils Relative 80.0 % LAB HEMETOLOGY METHOD 06/06/2025 10:58 AM [facility] Lymphocytes Relative 10.3 % LAB HEMETOLOGY METHOD 06/06/2025 10:58 AM [facility] Monocytes Relative 7.7 % LAB HEMETOLOGY METHOD 06/06/2025 10:58 AM [facility] Eosinophils Relative 1.2 % LAB HEMETOLOGY METHOD 06/06/2025 10:58 AM [facility] Basophils Relative 0.4 % LAB HEMETOLOGY METHOD 06/06/2025 10:58 AM [facility] Immature Granulocytes Relative 0.4 % LAB HEMETOLOGY METHOD 06/06/2025 10:58 AM [facility] Neutrophils Absolute 5.54 1.50 - 7.00 K/mcL LAB HEMETOLOGY METHOD 06/06/2025 10:58 AM [facility] Lymphocytes Absolute 0.71(L) 1.00 - 5.00 K/mcL LAB HEMETOLOGY METHOD 06/06/2025 10:58 AM EDT [facility] Monocytes Absolute 0.53 0.20 - 1.00 K/mcL LAB HEMETOLOGY METHOD 06/06/2025 10:58 AM EDT [facility] Eosinophils Absolute 0.08 0.00 - 0.50 K/[facility] LAB HEMETOLOGY METHOD 06/06/2025 10:58 AM EDT [facility] Basophils Absolute 0.03 0.00 - 0.20 K/[facility] LAB HEMETOLOGY METHOD 06/06/2025 10:58 AM EDT [facility] Immature Granulocytes Absolute 0.03 0.00 - 0.03 K/mcL LAB HEMETOLOGY METHOD 06/06/2025 10:58 AM EDT [facility] Blood Venous blood specimen / Unknown Venipuncture / Unknown 06/06/2025 10:42 AM EDT 06/06/2025 10:50 AM EDT Bayron Hester MD LAB BLOOD ORDERABLES Final Result Performing Organization Address City/[facility]/ZIP Co de Phone Number [facility] [address] [place] [address], [place] [phone] * B-type natriuretic peptide (06/06/2025 10:42 AM EDT) BNP 92 <=100 pcg/mL LAB CHEMISTRY METHOD 06/06/2025 11:29 AM EDT [facility] Blood Venous blood specimen / Unknown Venipuncture / Unknown 06/06/2025 10:42 AM EDT 06/06/2025 10:50 AM EDT Bayron Hester MD LAB BLOOD ORDERABLES Final Result [facility] [address] [place] [address], [place] [phone] * Serum albumin (06/06/2025 10:42 AM EDT) [facility] Albumin 3.2 3.2 - 5.0 g/dL LAB CHEMISTRY METHOD 06/06/2025 2:58 PM EDT [facility] Blood Venous blood specimen / Unknown Venipuncture / Unknown 06/06/2025 10:42 AM EDT 06/06/2025 10:50 AM EDT Hyacinth DORSEY LAB BLOOD ORDERABLES Final R esult [facility] [address] [place] [address], [place] [phone] * Hepatitis C antibody (02/16/2025 2:00 PM EDT) [facility] Hepatitis C Antibody Negative Negative LAB CHEMISTRY METHOD 02/16/2025 5:37 PM EDT [facility] Blood Venous blood specimen / Unknown Venipuncture / Unknown 02/16/2025 2:00 PM EDT 02/16/2025 2:05 PM EDT Ish David MD LAB BLOOD ORDERABLES Final Res ult Performing Organization Address [facility]/ZIP Co de Phone Number [facility] [address] [place] [address], [place] [phone] from Last 3 Months or Most Recently Relevant to Health Maintenance Insurance [facility] [employer] Advance Directives * Full [...] currently active code status orders. Care Teams Tower Director Relationship Specialty Start Date End Date Physician, Pcp Unknown PCP - General 05/01/25
[2025-09-07 04:28] LABS: HBS Num1 4.92 mIU/mL (0-7.99); HBc Num1 0.05 S/CO (0.00-0.79); HBsAGNum1 0.33 S/CO (0.00-0.99); Hepatitis B Surface Antigen Negative (Negative); ~Hepatitis B Surface Antibody NONREACTIVE (Nonreactive)
[2025-09-09 15:24] LABS: Prot Elec - Albumin 3.9 g/dL (3.8-4.8); Prot Elec - Alpha1 0.2 g/dL (0.2-0.3); Prot Elec - Alpha2 0.9 g/dL (0.5-0.9); Prot Elec - Beta 1 0.4 g/dL (0.4-0.6); Prot Elec - Beta 2 0.4 g/dL (0.2-0.5); Prot Elec - Gamma 0.8 g/dL (0.8-1.7); Prot Elec - Total Protein 6.6 g/dL (6.1-8.1)
[2025-09-09 16:03] LABS: Anti Nuclear Antibody Screen NEGATIVE (NEGATIVE)
[2025-09-09 17:47] LABS: Anti Glomerular Basement Memb <1.0 AI
[2025-09-10 15:24] LABS: Neutrophil Cyto Ab Screen NEGATIVE (NEGATIVE)
== END 2025-09-05 14:13 | disposition home or self-care (01) ==
LOC: HO.LAB 14:12
PROVIDERS: Absent Provider Internal Medicine Hypertension Specialist; PCP Registered Nurse; Visit Provider Registered Nurse
DX: R31.9 Hematuria, unspecified (principal); R80.9 Proteinuria, unspecified; Z01.84 Encounter for antibody response examination
CPT/HCPCS: 36415; 80053; 81001; 82570; 82784; 83520; 84156; 84165; 85025; 86036; 86038; 86334; 86704; 86706; 87340

== ENCOUNTER 2025-09-09 13:32 | Outpatient (AMB) | payer OTHER, SELFPAY ==
--- NOTE | 2025-09-09 13:38 | HO.NEPHOV ---
Vital Signs 09/09/25 13:39 09/09/25 13:56 Height 6 ft Weight 250 lb BMI 33.9 BP 178/84 H 140/70 H Blood Pressure Location Rt brachial Rt brachial Position Sitting Sitting Pulse 73 Pulse Source Pulse Oximeter Pulse Oximetry (%) 88 L Oxygen Delivery Method Room Air Intake Visit Reasons: 4-6wks f/u w/labs Customer Care Specialist Required: Yes Customer Care Specialist Name: cruz [id number] Accompanied by: Spouse Allergies No Known Allergies Allergy (Verified 09/09/25 13:41) Medication List - Last Reconciled 09/09/25 by Santo Brooks MD acetaminophen 650 mg PO TID PRN aspirin 81 mg PO DAILY atorvastatin 40 mg PO BEDTIME carvedilol 6.25 mg PO BID empagliflozin (Jardiance) 10 mg PO DAILY furosemide (Lasix) 80 mg PO BID ixekizumab (Taltz Autoinjector) 80 mg subcut Q4W metformin ER 500 mg PO BID sacubitril-valsartan 49-51 mg (Entresto) 1 tab PO BID spironolactone 25 mg PO DAILY tamsulosin 0.4 mg PO QPM HPI Comments Details: - The patient is a 55-year-old male presenting with proteinuria and hematuria. - Proteinuria: Urine protein level approximately 4,000 mg, - Urine is very foamy, - Hematuria detected in tests, no visible blood observed by patient. - Diabetes Mellitus: 20-year history, currently controlled. - Hypertension: Controlled. - History of nonischemic cardiomyopathy. - Sleep Apnea: Managed with CPAP for over 15 years. History of psoriatic arthritis. He was treated with methotrexate for a long time. Currently on Taltz 09/09/25 Non compliant with meds Missed anti diabetic meds Recent blood glucose 634 Nephrotic range proteinuria PFSH Medical History Dyspnea on minimal exertion Pulmonary hypertension Dyspnea on exhalation RAKAN (obstructive sleep apnea) CHF (congestive heart failure) Psoriasis Psoriatic arthritis Hypercholesteremia Lumbago with sciatica, right side Elev transaminase/LDH Neuropathy Diabetes Psoriasis Family History Father Diabetes HTN (hypertension) Mother Diabetes Social History Household Members: Spouse Housing: House Do you presently have visiting nurse or other home services: No Alcohol intake: never Patient Tobacco Use Status: Never used Tobacco e-Cigarette/Vaping Use: Never Used service: No Current occupational status: employed 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 Physical Exam Vital Signs: Last Vital Signs Pulse 73 09/09/25 13:39 BP 178/84 H 09/09/25 13:39 Pulse Ox 88 L 09/09/25 13:39 Oxygen Delivery Method Room Air 09/09/25 13:39 BMI result Body Mass Index 33.9 Results Reviewed Nephrology Results: Hgb, (14.0-18.0) 14.2 g/dl 09/05/25 WBC, (4.8-10.8) 6.0 X10*3/uL 09/05/25 Plt Count, (160-400) 200 X10*3/uL 09/05/25 Sodium, (135-145) 134 mmol/L L 09/05/25 Potassium, (3.3-5.1) 3.9 mmol/L 09/05/25 Chloride, (96-108) 96 mmol/L 09/05/25 Carbon Dioxide, (22-29) 27 mmol/L 09/05/25 BUN, (9-16) 24 mg/dL H 09/05/25 Creatinine, (0.5-1.4) 1.20 mg/dL 09/05/25 Calcium, (8.4-10.2) 9.3 mg/dL 09/05/25 Urine Protein, (Neg-Trace) 300 (3+) mg/dL H 09/05/25 Urine Creatinine 23.89 mg/dL 09/05/25 Assessment & Plan Assessment & Plan (1) Proteinuria: Code(s): R80.9 - Proteinuria, unspecified Category: Medical (2) Hematuria: Code(s): R31.9 - Hematuria, unspecified Category: Medical (3) Psoriatic arthritis: Comment: Methotrexate - failed Enbrel - failed Humira - failed Taltz - effective but lost to follow up Code(s): L40.50 - Arthropathic psoriasis, unspecified Category: Medical (4) Acute on chronic heart failure with mildly reduced ejection fraction (HFmrEF, 41-49%): Code(s): I50.23 - Acute on chronic systolic (congestive) heart failure Category: Medical (5) RAKAN (obstructive sleep apnea): Comment: THIS GENTLEMAN DOES HAVE SYMPTOMS AND HISTORY C/W OBSTRUCTIVE SLEEP APNEA, WHICH WAS CONFIRMED BY POLYSOMNOGRAM STUDY IN 2017. HE HAS HISTORY OF USING CPAP FOR SOME YEARS IN THE PAST BUT STOPPED USING UTERUS AGO BECAUSE THE CPAP MACHINE IS TOO OLD. THIS UN TREATED SLEEP APNEA , MAY BE CONTRIBUTING TO HIS PULMONARY HYPERTENSION. Code(s): G47.33 - Obstructive sleep apnea (adult) (pediatric) Category: Medical Plan 54-year-old man with longstanding diabetes mellitus with nephrotic range proteinuria and essentially normal renal function. Joesph most likely has diabetic nephropathy. Nevertheless nondiabetic causes should be ruled out. He has had some hematuria with a negative urological workup. Serum complements were low. He might require a kidney biopsy to rule out nondiabetic causes. At the present time renal function is normal with a creatinine of 0.9 mg/dL. and has bumped to 1.2 serologies including serum electrophoresis serum complements hepatitis panel- ordered adn pending Maintain A1c less than 7% Optimize blood pressure - initial reading was elevated- repeat was better Continue with ARB for renal protection along with SGLT2 inhibitor. Goal is to slow the progression of renal disease Continue to avoid nephrotoxic agents including NSAIDs. Once the baseline workup is completed returned to the office in the next few weeks and I will re-evaluate him for a kidney biopsy. Orders: Orders Complement C3 3 Weeks L40.9 - Psoriasis, unspecified, R80.9 - Proteinuria, unspecified Complement C4 3 Weeks L40.9 - Psoriasis, unspecified, R80.9 - Proteinuria, unspecified Immunofixation Pnl, Serum 3 Weeks L40.9 - Psoriasis, unspecified, R80.9 - Proteinuria, unspecified UA and rflx microscopic 3 Weeks I50.23 - Acute on chronic systolic (congestive) heart failure, R31.9 - Hematuria, unspecified, R80.9 - Proteinuria, unspecified US renal BI Today R31.9 - Hematuria, unspecified, R80.9 - Proteinuria, unspecified Phospholipase A2 Receptor Pnl 3 Weeks L40.9 - Psoriasis, unspecified, R80.9 - Proteinuria, unspecified Basic Metabolic Panel 3 Weeks L40.9 - Psoriasis, unspecified, R80.9 - Proteinuria, unspecified Urine Eosinophil 3 Weeks I50.23 - Acute on chronic systolic (congestive) heart failure, R31.9 - Hematuria, unspecified, R80.9 - Proteinuria, unspecified Coding Level of Care Code Est Pt Level 4 (56349) Diagnoses Proteinuria R80.9 Hematuria R31.9 Psoriatic arthritis L40.50 Acute on chronic heart failure with mildly reduced ejection fraction (HFmrEF, 41-49%) I50.23 RAKAN (obstructive sleep apnea) G47.33
[2025-09-09 13:39] VITALS: BP 178/84; PULSE 73; O2SAT 88; BMI 33.9
[2025-09-09 13:56] VITALS: BP 140/70
--- OUTSIDE RECORDS SUMMARY | 2025-09-09 15:10 | XMS_ITS | Encounter Summary ---
Author Organization [employer] Address [address] [place] [address] [address] [place] [address] Care Team Providers Care Spring Maker Name Role Phone Marilee Cordero Primary Care Provider [phone] Cristo Garcia MD Unavailable Doris Candelario Unavailable [phone] Yoselyn Lyons Unavailable Unavailable Balbir Don Unavailable Lindsay Nur PharmD Unavailable [phone] Meño Butcher MD Unavailable [phone] Reason for Referral * Consultation (Routine) - Closed Specialty Diagnoses / Procedures Referred By Contzena t Referred To Contact Nephrology Diagnoses Albuminuria Marilee Cordero FNP [address] [place] [address] Phone: tel: fax: Bayron Marshall MD [address] [facility] [address] [place] [address] Phone: tel: fax: Referral ID Status Reason Start Date Expiration Date V isits Requested Visits Authorized [id number] Closed Specialty Services Required 12/29/2023 12/28/2024 1 1 Encounter Details Date Type Department Care Team (Late st Contact Info) Description 12/29/2023 Orders Only [facility] [address] [place], [place] [phone] aMrilee Cordero FNP [address] [place], [place] [phone] Albuminuria (Primary Dx) Social History Tobacco Use [...] Description 10/02/2025 2:30 PM EST Medication Management [facility] [address] [place] [address] Lindsay Nur, PharmD [address] [place] [address] documented as of this encounter Procedures Procedure [...] documented as of this encounter Care Teams Spring Maker Relationship Specialty Start Date End Date Marilee Cordero FNP [address] [place] [address] PCP - General Family Medicine 03/23/23 Cristo Garcia MD [address] [place] [address] Rheumatology 09/01/24 Doris Candelario [address] [place] [address] Cardiology 09/01/24 07/05/25 Yoselyn Lyons [address] [place] [address] Ophthalmology 09/01/24 Balbir Don [address] [facility] [address] [place] [address] Sleep Medicine 09/01/24 Lindsay Nur PharmD [address] [place] [address] Pharmacist Pharmacy 05/29/25 Meño Butcher MD [address] [place] [address] 3[address] [place] [address] Cardiology 07/06/25 Dr. Ramirez 100 [facility] [address] [place] [address] Nephrology 09/01/24 Noman LAWRENCE 03/18/25 05/04/25 documented as of this encounter
--- OUTSIDE RECORDS SUMMARY | 2025-09-09 15:10 | XMS_ITS | Clinical Summary ---
Author Organization [email or web address] Address [address] [place] [address] Care Team Providers Care Production Cloth Cutter Name Role Phone Marilee Cordero BRANDEN Primary Care Provider [phone] Cristo Garcia MD Unavailable Yoselyn Lyons Unavailable Unavailable Balbir Don Unavailable Lindsay Nur PharmD Unavailable [phone] Meño Butcher MD Unavailable [phone] Allergies No known active allergies Medications Blood Pressure kit Use daily Active Blood Glucose Monitoring Suppl (FreeStyle Keene Lite) w/Device kit 1 each by Other [...] hyperglycemia, with long-term current use of insulin ([facility]) Inject 3 mg under the skin 1 (one) time per week. 2 mL 2 09/05/20 25 Active metFORMIN XR (Glucophage-XR ) 500 MG 24 hr tabletIndicati ons:Type 2 diabetes mellitus with hyperglycemia, with long-term current use of insulin ([facility]) TAKE 1 TABLET BY MOUTH TWICE DAILY IN THE MORNING AND IN THE EVENING WITH MEALS 180 tablet 1 09/05/20 25 Active insulin glargine (Lantus SoloStar) 100 UNIT/ML penIndications :Type 2 diabetes mellitus with hyperglycemia, with long-term current use of insulin ([facility]) Inject 20 Units under the skin at [...] hyperglycemia, with long-term current use of insulin ([facility]) TAKE 1 TABLET BY MOUTH TWICE DAILY [...] Date Hematuria 04/29/2025 Overview (07/06/2025): Following with [facility] - Dr. Cramer Assessment & Plan [...] UA, confirmed with send out Following with [facility] Diabetic polyneuropathy asso ciated with type [...] Followed by [facility] - Dr. James Hogan 10mg daily Psoriatic arthritis ([facility]/HCC) 08/30/2024 Overview (04/01/2025): Followed by [facility] Rheum - Dr. Garcia Med therapy: DMARD [...] (07/06/2025): Previously following with [facility], established with [facility] - Dr. Butcher April: Nuclear stress test: [...] Hospitalization for CHF exacerbation: Oct 2023 at [facility] - Reviewed condition and concerning signs/symptoms Pharmacotherapy: Aspirin 81mg daily Atorvastatin 40mg nightly Furosemide 40mg BID (RX nephrology) Spironolactone 25mg daily (RX cards) Jardiance 25mg daily Carvedilol 6.25mg BID Entresto 24-26mg BID Assessment & Plan (04/01/2025 7:07 PM EDT): Follow-up with [facility] as scheduled in April 2025. Reports they are already on wait list in case anything sooner becomes available. Assessment & Plan (01/27/2025 9:50 AM EDT): Cont current therapy, symptomatic SOB/BELL Referral to [facility] for further eval Assessment & Plan (09/01/2024 [...] following with renal for proteinuria -Established with [facility] Assessment & Plan (04/01/2025 7:01 PM EDT): - Initial BG reading [facility]. Repeat value HH s/p 10 units lispro. Re-check #3 resulted 436 s/p second dose of 10 units insulin lispro. Pt unable to void for UA. Discussed ED precautions. - Previous rx of Jardiance 10mg daily (rx through [employer] - unclear if currently taking) - No [...] tx in Rheum note 02/04/21) -Re-established with [facility] Nov 2021, last consult appt December 2023 Plan to hold methotrexate with hx cardiac conditions Taltz injections through Rheum with notable improvement Assessment & Plan (03/03/2024 2:42 PM EDT): -Previous tx with methotrexate and Enbrel (hx of failed Humira tx in Rheum note 02/04/21) -Re-established with [facility] Rheum Nov 2021, last consult appt December 2023 Plan to hold methotrexate with hx cardiac conditions Authorization for Taltz is pending Assessment & Plan (08/11/2023 1:16 PM EDT): -Previous tx with methotrexate and Enbrel (hx of failed Humira tx in Rheum note 02/04/21) -Re-established with [facility] Rheum Nov 2021 Says may have re-started on methotrexate but unsure. Will bring med list to next appt. -Pt was also referred to [facility] Derm Team, appt pending Assessment & Plan (04/12/2023 1:37 PM EDT): -Previous tx with methotrexate and Enbrel (hx of failed Humira tx in Rheum note 02/04/21) -Re-established with [facility] Rheum Nov 2021 Says may have re-started on methotrexate but unsure. Will bring med list to next appt. -Pt was also referred to [facility] Derm Team, appt pending Assessment & Plan (10/20/2022 9:18 AM EST): -Previous tx with methotrexate and Enbrel (hx of failed Humira tx in Rheum note 02/04/21) -Reports has not been taking any meddications for psoriasis in > 6 month, interested in re-establishing with specialists -Upcoming appt with [facility] Rheum Nov 2021 -Pt was also referred to [facility] Derm Team, appt pending Hypertension 06/13/2012 [...] reporting intermittent discomfort with mask Referral to [facility] Sleep Medicine for further eval and management Resolved Problems Problem Noted Date Diagnosed Date Resolved Date Retention of urine 02/26/2015 3 Elevated levels of transamin ase & lactic acid dehydrogenase 08/14/2012 10/20/2022 Encounters Date Type Department Care Team Description 09/05/2025 Orders Only GENERIC EXTERNAL DATA DEPARTMENT Provider, Generic External Data 09/05/2025 Telephone [facility] [address] [place] [address] Lindsay Nur, PharmD 09/05/2025 Travel 09/01/2025 Telephone [facility] [address] [place] [address] Marilee Cordero FNP 09/01/2025 Travel 08/26/2025 Telephone [facility] [address] [place] [address] Marilee Cordero FNP Transition Of Care (Tcm) 08/25/2025 Orders Only [facility] [address] [place] [address] Jamaica Roman MD Diabetic macular edema (HCC) (Primary Dx); Primary hypertension 08/20/2025 Telephone [facility] [address] [place] [address] Lindsay Nur PharmD 07/08/2025 Results Follow-Up [facility] [address] [place] [address] Marilee Cordero FNP Lipid Panel, Standard, Vitamin B12/Folate, Serum Panel, Methylmalonic Acid 07/04/2025 8:30 AM EDT Office Visit [facility] [address] [place] [address] Marilee Cordero FNP Type 2 diabetes mellitus [...] Generic External Data 07/04/2025 Travel 07/03/2025 Telephone [facility] [address] [place] [address] Marilee Cordero FNP chart prep 06/26/2025 Travel [...] your housing situation today? I have clayton sanhcez 08/30/[address] you li [...] 10/02/2025 2:30 PM EST Medication Management [facility] [address], [place] [phone] Lindsay Nur, PharmD [address], [place] [phone] Health Maintenance Due Date Last Done Comments CT Colonography 1970 Colonoscopy 1970 Colorectal Cancer Screening 1970 FIT DNA/Cologuard 1970 FIT 1970 FOBT 1970 Sigmoidoscopy 1970 Eye Exam 1980 Dental Prophylaxis 11/10/2012 05/09/2012, 0 12/13/2011, 07/22/2009 Dental Oral Exam 07/11/2014 01/07/2014 Dental X-Ray: Bitewings 08/12/2024 08/11/20, 01/07/2014, 10/01/2010, Additional history exists Depression Monitoring 07/29/2025 01/27/2025, [...] 07/04/2026 07/04/2025, 08/30, 04/27/2022, Additional history exists Diabetes: Urine Protein Screening 09/05/2026 09/05/2025, 12/25/2023, 09/13/2023, Additional history exists Dental X-Ray: Full Mouth [...] Procedure Name Priority Date/Time Associated Diagnosis Comments HEPATITIS B SURFACE ANTIGEN, EIA Routine 09/05/2025 2:27 PM EST HEPATITIS B CORE AB TOTAL Routine 09/05/2025 2:27 PM EST HEPATITIS B SURFACE ANTIBODY, QUALITATIVE Routine 09/05/2025 2:27 PM EST COMPREHENSIVE METABOLIC [...] Blood Count 6.0 4.8 - 10.8 X10*3/uL [facility] Red Blood Count 5.06 4.60 - 5.80 X10*6/uL [facility] Hemoglobin 14.2 14.0 - 18.0 g/dl [facility] Hematocrit 41.9(L) 42.0 - 52.0 % [facility] Mean Corpuscular Volume 82.8 80.0 - 98.0 fL [facility] Mean Corpuscular Hemoglobin 28.1 27.0 - 33.0 pg [facility] Mean Corpuscular HGB Conc 33.9 31.0 - 36.0 g/dl [facility] Red Cell Distribution Width 13.5 11.0 - 16.0 % [facility] Platelet Count 200 160 - 400 X10*3/uL [facility] Mean Platelet Volume 10.0 9.4 - 12.4 fL [facility] Neutrophils Percent Auto 81.8(H) 45 - 73 % [facility] Imm Gran Pct Auto 0.2 0.0 - 0.4 % [facility] Lymphocytes Percent Auto 9.3(L) 20 - 40 % [facility] Monocytes Percent Auto 6.5 2 - 11 % [facility] Eosinophils Percent Auto 1.7 0 - 4 % [facility] Basophils Percent Auto 0.5 0 - 2 % [facility] NRBC Pct Auto 0.0 0.0 - 0.2 /100WBC [facility] Neutrophils Absolute Auto 4.9 2.0 - 8.3 x10*3/uL [facility] Imm Gran Abs Auto 0.01 0.00 - 0.03 X10*3/uL [facility] Lymphocytes Absolute Auto 0.6(L) 1.2 - 4.9 X10*3/uL [facility] Monocytes Absolute Auto 0.4 0.1 - 1.2 X10*3/uL [facility] Eosinophils Absolute Auto 0.1 0.0 - 0.4 X10*3/uL [facility] Basophils Absolute Auto 0.0 0.0 - 0.2 X10*3/uL [facility] NRBC Abs Auto 0.000 0.0 - 0.012 X10*3/uL [facility] 09/05/2025 2:27 PM EST 09/05/2025 2:27 PM EST Generic External Data Provider LAB BLOOD ORDERAB LES Final Result Performing Organization Address City/[facility] Co de Phone Number [facility] [address] [place] [phone] * Hepatitis B surface antigen, EIA (09/05/2025 2:27 PM EST) Pathologist [facility] Hepatitis B Surface Ag Negative Negative [facility] 09/05/2025 2:27 PM EST 09/05/2025 2:27 PM EST Generic External Data Provider LAB BLOOD ORDERAB LES Final Result Performing Organization Address [facility] Co de Phone Number [facility] [address] [place] [phone] * Hepatitis B Core Antibody, Total (09/05/2025 2:27 PM EST) Hepatitis B Core Antibody Nonreactive Nonreactive [facility] 09/05/2025 2:27 PM EST 09/05/2025 2:27 PM EST Generic External Data Provider LAB BLOOD ORDERAB LES Final Result Performing Organization Address [facility] de Phone Number [facility] [address] [place] [phone] * Hepatitis B Surface Antibody, Qualitative (09/05/2025 2:27 PM EST) ~Hepatitis B Surface Antibody NONREACTIVE Nonreactive [facility] Comment:Nonreactive: < 8.00 mIU/mL 09/05/2025 2:27 PM EST 09/05/2025 2:27 PM EST us Generic External Data Provider LAB BLOOD ORDERAB LES Final Result [facility] [address] [place] [address] [phone] * (ABNORMAL) Comprehensive Metabolic Panel (09/05/2025 2:27 PM EST) Only the most recent of2 resultswithin the time period is included. Sodium 134(L) 135 - 145 mmol/L [facility] Potassium 3.9 3.3 - 5.1 mmol/L [facility] Chloride 96 96 - 108 mmol/L [facility] Carbon Dioxide 27 22 - 29 mmol/L [facility] Anion Gap 15 12 - 20 [facility] Urea Nitrogen (BUN) 24(H) 9 - 16 mg/dL [facility] Creatinine, Serum 1.20 0.5 - 1.4 mg/dL [facility] Estimated Glomerular Filt Rate >60 [facility] Comment:Chronic Kidney Disea se: Estimated GFR < 60 mL/min/[id number] Kidney Disease: Estimated GFR < 15 mL/min/1.73m2 Glucose 634(HH) 60 - 115 mg/dL [facility] Comment:Critical value for G LUCOSE Results called to and read corinne CORTES Person calling: NOEMI Date: 09/05/25 Time: 1516 Calcium 9.3 8.4 - 10.2 mg/dL [facility] Bilirubin, Total 0.5 0.0 - 1.0 mg/dL [facility] Aspartate Amino Transferase 18 5 - 37 U/L [facility] Alanine Aminotransferase 20 0 - 40 U/L [facility] Total Protein 6.8 6.5 - 8.0 g/dL [facility] Albumin Level 4.0 3.5 - 5.0 g/dL [facility] Alkaline Phosphatase 108 39 - 117 U/L [facility] 09/05/2025 2:27 PM EST 09/05/2025 2:27 PM EST Generic External Data Provider LAB BLOOD ORDERAB LES Final Result Performing Organization Address [facility] de Phone Number [facility] [address] [place] [phone] * (ABNORMAL) Urine Protein, Total, Random without Creatinine (09/05/2025 2:21 PM EST) Protein, Total, Random Urine 172(H) <12 mg/dL [facility] 09/05/2025 2:21 PM EST 09/05/2025 2:37 PM EST Generic External Data Provider LAB URINE ORDERAB LES Final Result Performing Organization Address [facility] Phone Number [facility] [address] [place] [phone] * Creatinine, Random Urine (09/05/2025 2:21 PM EST) Creatinine, Urine 23.89 mg/dL [facility] 09/05/2025 2:21 PM EST 09/05/2025 2:37 PM EST Generic External Data Provider LAB URINE ORDERAB LES Final Result Performing Organization Address [facility] Phone Number [facility] [address] [place] [phone] * (ABNORMAL) Urinalysis Complete (09/05/2025 2:21 PM EST) Color Urine Yellow [facility] Appearance Urine Clear [facility] PH 6.0 5.0 - 9.0 [facility] Glucose Urine UA >=1000(A) Negative mg/dL [facility] Urine Blood Trace(A) Negative [facility] Specific [place] - Urine >=1.030(H) 1.005 - 1.025 [facility] Urine Protein 300 (3+)(A) Neg-Trace mg/dL [facility] Urine Ketones Negative Negative mg/dL [facility] Nitrite Urine Negative Negative [facility] Leukocyte Esterase Urine Negative Negative [facility] RBC Urine 0-2 0 - 2 /HPF [facility] Urine WBC 0-5 0 - 5 /HPF [facility] Urine Squamous Epithelial Cell 0-2 0 - 2 /HPF [facility] Urine Bacteria None Seen None Seen [facility] Hyaline Casts, Urine 0-2 0 - 2 /LPF [facility] 09/05/2025 2:21 PM EST 09/05/2025 2:37 PM EST us Generic External Data Provider LAB URINE ORDERAB LES Final Result Performing Organization Address [facility] Co de Phone Number [facility] [address] [place] [phone] * Vitamin B12/Folate, Serum Panel (07/04/2025 10:07 AM EDT) Vitamin B12 237 200 - 900 pg/mL [facility] Comment:NORMAL 200-900 PG/ML INDETERMINATE 160-199 PG/ML DEFICIENT < 160 PG/ML Folate 9.4 > or = 4.0 ng/mL [facility] Comment:Reference Values:> o r = 4.0 ng/mL< 4.0 ng/mL suggests folate deficiency Methotrexate, aminopterin and folinic acid(leucovorin) are chemotherapeutic agents whose molecularstructures are similar to folate; therefore, the Architectfolate assay cannot be used for patients using these drugs. Blood Venous blood specimen / Unknown 07/04/2025 10:07 AM EDT 07/04/2025 11:47 AM EDT us Marilee Cordero [employer] LAB BLOOD ORDERABLES Final Res ult Performing Organization Address City/[facility]/ZIP Co de Phone Number [facility] [address] [place] [phone] * Methylmalonic Acid (07/04/2025 10:07 AM EDT) Pathologist [facility] Methylmalonic Acid 225 55 - 335 nmol/L [facility] Comment: Serum methylmalonic acid (MMA) [...] outcomes,such as neural tube defects and intrauterine growthrestriction.[employer] utilized Multi-Modal Decomposition(MMD) analysis to establish first and second trimester-specific MMA reference intervals in , as givenbelow:MMA, First trimester (<13 wks gestation): 58-167 nmol/LMMA, Second trimester (13-23 wks gestation):63-241 nmol/LThis test was developed and its analytical performancecharacteristics have been determined by [employer]. It has not been cleared or approved by theFDA. This assay has been validated pursuant to the CLIAregulations and is used for clinical purposes.THIS TEST WAS PERFORMED AT:[id number] [place] [id number] RANDHAWA MD,PHD Blood Venous blood specimen / Unknown 07/04/2025 10:07 AM EDT 07/04/2025 11:47 AM EDT us Marilee Cordero [facility] LAB BLOOD ORDERABLES Final Res ult [facility] [address] [place] [phone] * (ABNORMAL) Sed Rate by Modified Wilbur (07/04/2025 10:07 AM EDT) Pathologist [facility] Erythrocyte Sedimentation Rate 28(H) 0 - 15 MM/HR [facility] Comment:Patients with polycy themia and many hemoglobin abnormalitiesmay have depressed sed rates whereas patients with anemiamay have elevated sed rates. 07/04/2025 10:0 7 AM EDT 07/04/2025 11:47 AM EDT Generic External Data Provider LAB BLOOD ORDERAB LES Final Result Performing Organization Address City/[facility]/ZIP Co de Phone Number [facility] [address] [place] [phone] * C-reactive Protein (07/04/2025 10:07 AM EDT) C Reactive Protein 0.10 < or = 0.50 mg/dL [facility] 07/04/2025 10:0 7 AM EDT 07/04/2025 11:47 AM EDT Generic External Data Provider LAB BLOOD ORDERAB LES Final Result Performing Organization Address [facility] Co de Phone Number [facility] [address] [place] [phone] * (ABNORMAL) Lipid Panel, Standard (07/04/2025 10:07 AM EDT) Triglycerides 129 <150 mg/dL [facility] Comment:Desirable Triglyceri de: less than 150 mg/dLBorderline High Triglyceride 150-199 mg/dLHigh Triglyceride: 200-499 mg/dLVery High Triglyceride: greater than or equal to 5OO mg/dL Cholesterol 158 <200 mg/dL [facility] Comment:Desirable Cholestero l: less than 200 mg/dLBorderline High Cholesterol: 200-239 mg/dLHigh Cholesterol: greater than 239 mg/dL LDL Cholesterol Calculated 104(H) <100 mg/dL [facility] Comment:Desirable LDL: less than 100 mg/dLNear Optimal/Above Optimal LDL: 110- 129 mg/dLBorderline High LDL: 130-159 mg/dLHigh LDL: 160-189 mg/dLVery High LDL: greater than or equal to 190 mg/dL HDL Cholesterol 29(L) >40 mg/dL [facility] Comment:Desirable HDL: great er than 40 mg/dL Note: This HDL assay may give artificially low results in patients with liver disease. Blood Venous blood specimen / Unknown 07/04/2025 10:07 AM EDT 07/04/2025 11:47 AM EDT Marilee Cordero [employer] LAB BLOOD ORDERABLES Final Res ult [facility] [address] [place] [phone] * (ABNORMAL) POCT A1c (06/26/2025 1:35 PM EDT) Hemoglobin A1C 10.8(A) 4.0 - 5.7 % QC Media Lot # [id number] Lot# Expiration Date Blood 06/26/2025 1:35 PM EDT Marilee Cordero [employer] LOADER POINT OF CARE TEST ENTER/EDIT ORDERABLES Final Result * Hepatitis Panel, General (02/26/2025 7:32 AM EDT) Hepatitis A IgM Nonreactive Nonreactive [facility] Comment:IgM antibodies to GIBSON V not detected; does not exclude earlyacute or recovered HAV infection. ~Hepatitis B Surface Antibody NONREACTIVE Nonreactive [facility] Comment:Nonreactive: < 8.00 mIU/mL Hepatitis B Core Antibody Nonreactive Nonreactive [facility] Hepatitis C Antibody Nonreactive Nonreactive [facility] Comment:Antibodies to HCV no t detected; does not exclude early acuteHCV infection. Hepatitis B Surface Ag Negative Negative [facility] 02/26/2025 7:32 AM EDT 02/26/2025 7:32 AM EDT Generic External Data Provider LAB BLOOD ORDERAB LES Final Result Performing Organization Address [facility]/ZIP Co de Phone Number [facility] [address] [place] [phone] * HIV-1/2 Antigen and Antibodies, Fourth Generation, with Reflexes (09/13/2023 7:53 AM EST) HIV AB/AG Nonreactive Nonreactive [facility] Comment:HIV-1 p24 Ag and/or HIV-1/HIV-2 Ab not detected.A test result that is nonreactive does not exclude thepossibility of exposure to or infection with HIV-1 and/orHIV-2. Nonreactive results in this assay for individualswith prior exposure to HIV-1 and/or HIV-2 may be due toantigen and antibody levels that are below the limit ofdetection of this assay.[facility] HIV Ag/Ab Combo assay result andsupplemental assay results should be interpreted inconjunction with the patient's clinical presentation,history and other laboratory results. If the results areinconsistent with clinical evidence, additional testing issuggested to confirm the result. Blood Venous blood specimen / Unknown 09/13/2023 7:53 AM EST 09/13/2023 7:53 AM EST us Marilee Cordero [facility] LAB BLOOD ORDERABLES Final Res ult Performing Organization Address [facility] Co de Phone Number [facility] [address] [place] [phone] from Last 3 Months or Most Recently Relevant to Health Maintenance Insurance [facility] - HSN PARTIAL (MEDICAID) Care Teams Production Cloth Cutter Relationship Specialty Start Date End Date Marilee Cordero FNP [address] [place] [address] PCP - General Family Medicine 03/23/23 Cristo Garcia MD [address] [place] [address] [place] [phone] Rheumatology 09/01/24 Yoselyn Lyons [address] [place] [address] Ophthalmology 09/01/24 Balbir Don [address] [facility] [address] [place] [address] Sleep Medicine 09/01/24 Lindsay Nur, PharmD [address] [place] [address] Pharmacist Pharmacy 05/29/25 Meño Butcher MD [address] 3rd [place] [address] Cardiology 07/06/25 Dr. Ramirze [address] [place] [address] [address] [place] [phone] Nephrology 09/01/24
--- OUTSIDE RECORDS SUMMARY | 2025-09-09 15:10 | XMS_ITS | Encounter Summary ---
Author Organization [employer] Address 75 [facility] 7t [place] [address] Care Team Providers Care Automotive Heavy Mechanic Name Role Phone Marilee Cordero STRETCHER HELPER Primary Care Provider [phone] Cristo Garcia MD Unavailable Doris Candelario Unavailable [phone] Yoselyn Lyons Unavailable Unavailable Balbir Don Unavailable Lindsay NurD Unavailable [phone] Meño Butcher MD Unavailable [phone] Reason for Visit * Reason Comments Med Refill Encounter Details Date Type Department Care Team (Late st Contact Info) Description 07/23/2023 Refill [facility] MEDICINE [address] [place] [address] Donavan Mcgee AGNP Social History Tobacco Use [...] Description 10/02/2025 2:30 PM EST Medication Management [facility] MED & PEDS 505 [place] [address] Lindsay Nur PharmD 230 [place] [address] documented as of this encounter Visit Diagnoses Not on filedocumented in this encounter Additional Health Concerns Assessment Noted Time PHQ-9 Depression Total Score: 1 10/17/20 22 10:05 AM EST documented as of this encounter Care Teams Automotive Heavy Mechanic Relationship Specialty Start Date End Date Marilee Cordero FNP [address] [place] [address] PCP - General Family Medicine 03/23/23 Cristo Gracia MD [address] [place] [address] Rheumatology 09/01/24 Doris Candelario [address] [place] [address] Cardiology 09/01/24 07/05/25 Yoselyn Lyons [address] [place] [address] Ophthalmology 09/01/24 Balbir Don 22 [facility] 301 [place] [address] Sleep Medicine 09/01/24 Lindsay Nur, PharmD 230 [place] [address] Pharmacist Pharmacy 05/29/25 Meño Butcher MD [address] [place] [address] 3rd [place] [address] Cardiology 07/06/25 Dr. Ramirez [address] [place] [address] 200 [place] [address] Nephrology 09/01/24 Noman LEWISA 03/18/25 05/04/25 documented as of this encounter
--- OUTSIDE RECORDS SUMMARY | 2025-09-09 15:10 | XMS_ITS | Encounter Summary ---
Author Organization [employer] Address 75 [facility] 7t [place] [address] Care Team Providers Care Chief Medical Physicist Name Role Phone Marilee Cordero Primary Care Provider [phone] Cristo Garcia MD Unavailable Doris Candelario Unavailable [phone] Yoselyn Lyons Unavailable Unavailable Balbir Don Unavailable Lindsay NurD Unavailable [phone] Meño Butcher MD Unavailable [phone] Reason for Visit * Reason Onset Date Comments Hospital Follow-up 03/17/2025 Encounter Details Date Type Department Care Team (Late st Contact Info) Description 03/17/2025 Telephone [facility] MEDICINE 230 [place] [address] Marilee Cordero FNP 505 [place], [place] [phone] Hospital Follow-up Social History Tobacco Use Types [...] from pt requesting a HDF appt. Hospital: [facility] Date of admission: 03/11/25 Discharge date: 03/15/25 Diagnosed: Leg pain and goes up to back *Send message to Noman Clinical Care Coordinators documented in this encounter Plan of Treatment Upcoming Encounters Date Type Department Care Team (Late st Contact Info) Description 10/02/2025 2:30 PM EST Medication Management [facility] CHC MED & PEDS [address] [place] [address] Lindsay Nur, PharmD 230 [place] [address] documented as of this encounter Visit Diagnoses Not on filedocumented in this encounter Additional Health Concerns Assessment Noted Time PHQ-9 Depression Total Score: 13 025 8:59 AM EDT documented as of this encounter Care Teams Chief Medical Physicist Relationship Specialty Start Date End Date Marilee Cordero FNP 230 [place] [address] PCP - General Family Medicine 03/23/23 Cristo Garcia MD [address] [place] [address] 402 [place] [address] Rheumatology 09/01/24 Doris Candelario [address] [place] [address] Cardiology 09/01/24 07/05/25 Yoselyn Lyons 180 [place] [address] Ophthalmology 09/01/24 Balbir Don 22 [facility] 301 [place] [address] Sleep Medicine 09/01/24 Lindsay Nur PharmD 230 [place] [address] Pharmacist Pharmacy 05/29/25 Meño Butcher MD [address] [place] [address] 3rd [place] [address] Cardiology 07/06/25 Dr. Ramirez 100 [facility] 200 [place] [address] Nephrology 09/01/24 [facility] 03/18/25 05/04/25 documented as of this encounter
--- OUTSIDE RECORDS SUMMARY | 2025-09-09 15:10 | XMS_ITS | Encounter Summary ---
Author Organization [employer] Address 75 [facility] 7t [place] [address] Care Team Providers Care Shingle Bolt Cutter Name Role Phone Marilee Cordero BRANDEN Primary Care Provider [phone] Cristo Garcia MD Unavailable Yoselyn Lyons Unavailable Unavailable Balbir Don Unavailable Lindsay Nur PharmD Unavailable [phone] Meño Butcher MD Unavailable [phone] Encounter Details Date Type Department Care Team [...] Description 10/02/2025 2:30 PM EST Medication Management [facility] MED & PEDS 505 [place] [address] Lindsay Nur, PharmD 230 [place] [address] documented as of this encounter Procedures Procedure Name Priority Date/Time Associated Diagnosis Comments CBC WITH AUTO DIFFERENTIAL Routine 09/05/2025 2:27 PM EST HEPATITIS B SURFACE ANTIGEN, EIA Routine 09/05/2025 [...] EST documented in this encounter Results * Hepatitis B surface antigen, EIA (09/05/2025 2:27 PM EST) Pathologist [facility] Hepatitis B Surface Ag Negative Negative [facility] 09/05/2025 2:27 PM EST 09/05/2025 2:27 PM EST Generic External Data Provider LAB BLOOD ORDERAB LES Final Result Performing Organization Address [facility] Co de Phone Number [facility] [address] [place] [phone] * Hepatitis B Core Antibody, Total (09/05/2025 2:27 PM EST) [facility] Hepatitis B Core Antibody Nonreactive Nonreactive [facility] 09/05/2025 2:27 PM EST 09/05/2025 2:27 PM EST Generic External Data Provider LAB BLOOD ORDERAB LES Final Result Performing Organization Address [facility] Co de Phone Number [facility] [address] [place] [phone] * Hepatitis B Surface Antibody, Qualitative (09/05/2025 2:27 PM EST) Pathologist [facility] ~Hepatitis B Surface Antibody NONREACTIVE Nonreactive [facility] Comment:Nonreactive: < 8.00 mIU/mL 09/05/2025 2:27 PM EST 09/05/2025 2:27 PM EST Generic External Data Provider LAB BLOOD ORDERAB LES Final Result Performing Organization Address [facility] Co de Phone Number [facility] [address] [place] [phone] * (ABNORMAL) Comprehensive Metabolic Panel (09/05/2025 2:27 PM EST) [facility] Sodium 134(L) 135 - 145 mmol/L [facility] Potassium 3.9 3.3 - 5.1 mmol/L [facility] Chloride 96 96 - 108 mmol/L [facility] Carbon Dioxide 27 22 - 29 mmol/L [facility] Anion Gap 15 12 - 20 [facility] Urea Nitrogen (BUN) 24(H) 9 - 16 mg/dL [facility] Creatinine, Serum 1.20 0.5 - 1.4 mg/dL [facility] Estimated Glomerular Filt Rate >60 [facility] Comment:Chronic Kidney Disea se: Estimated GFR < 60 mL/min/1.48l1Ndsboy Kidney Disease: Estimated GFR < 15 mL/min/1.73m2 Glucose 634(HH) 60 - 115 mg/dL [facility] Comment:Critical value for G LUCOSE Results called to and read carole: SOPHIA Person calling: DELOSSF Date: 09/05/25 Time: 1516 Calcium 9.3 8.4 - 10.2 mg/dL [facility] Bilirubin, Total 0.5 0.0 - 1.0 mg/dL [facility] Aspartate Amino Transferase 18 5 - 37 U/L [facility] Alanine Aminotransferase 20 0 - 40 U/L [facility] Total Protein 6.8 6.5 - 8.0 g/dL [facility] Albumin Level 4.0 3.5 - 5.0 g/dL [facility] Alkaline Phosphatase 108 39 - 117 U/L [facility] 09/05/2025 2:27 PM EST 09/05/2025 2:27 PM EST us Generic External Data Provider LAB BLOOD ORDERAB LES Final Result [facility] [address] [place] [phone] * (ABNORMAL) CBC auto differential (09/05/2025 2:27 PM EST) Pathologist [facility] White Blood Count 6.0 4.8 - 10.8 X10*3/uL [facility] Red Blood Count 5.06 4.60 - 5.80 X10*6/uL [facility] Hemoglobin 14.2 14.0 - 18.0 g/dl [facility] Hematocrit 41.9(L) 42.0 - 52.0 % [facility] Mean Corpuscular Volume 82.8 80.0 - 98.0 fL [facility] Mean Corpuscular Hemoglobin 28.1 27.0 - 33.0 pg [facility] Mean Corpuscular HGB Conc 33.9 31.0 - 36.0 g/dl [facility] Red Cell Distribution Width 13.5 11.0 - 16.0 % [facility] Platelet Count 200 160 - 400 X10*3/uL [facility] Mean Platelet Volume 10.0 9.4 - 12.4 fL [facility] Neutrophils Percent Auto 81.8(H) 45 - 73 % [facility] Imm Gran Pct Auto 0.2 0.0 - 0.4 % [facility] Lymphocytes Percent Auto 9.3(L) 20 - 40 % [facility] Monocytes Percent Auto 6.5 2 - 11 % [facility] Eosinophils Percent Auto 1.7 0 - 4 % [facility] Basophils Percent Auto 0.5 0 - 2 % [facility] NRBC Pct Auto 0.0 0.0 - 0.2 /100WBC [facility] Neutrophils Absolute Auto 4.9 2.0 - 8.3 x10*3/uL [facility] Imm Gran Abs Auto 0.01 0.00 - 0.03 X10*3/uL [facility] Lymphocytes Absolute Auto 0.6(L) 1.2 - 4.9 X10*3/uL [facility] Monocytes Absolute Auto 0.4 0.1 - 1.2 X10*3/uL [facility] Eosinophils Absolute Auto 0.1 0.0 - 0.4 X10*3/uL [facility] Basophils Absolute Auto 0.0 0.0 - 0.2 X10*3/uL [facility] NRBC Abs Auto 0.000 0.0 - 0.012 X10*3/uL [facility] 09/05/2025 2:27 PM EST 09/05/2025 2:27 PM EST Generic External Data Provider LAB BLOOD ORDERAB LES Final Result Performing Organization Address [facility] de Phone Number [facility] [address] [place] [phone] * (ABNORMAL) Urine Protein, Total, Random without Creatinine (09/05/2025 2:21 PM EST) Protein, Total, Random Urine 172(H) <12 mg/dL [facility] 09/05/2025 2:21 PM EST 09/05/2025 2:37 PM EST Generic External Data Provider LAB URINE ORDERAB LES Final Result Performing Organization Address [facility] Phone Number [facility] [address] [place] [phone] * Creatinine, Random Urine (09/05/2025 2:21 PM EST) Creatinine, Urine 23.89 mg/dL [facility] 09/05/2025 2:21 PM EST 09/05/2025 2:37 PM EST Generic External Data Provider LAB URINE ORDERAB LES Final Result Performing Organization Address [facility] de Phone Number [facility] [address] [place] [phone] * (ABNORMAL) Urinalysis Complete (09/05/2025 2:21 PM EST) Color Urine Yellow [facility] Appearance Urine Clear [facility] PH 6.0 5.0 - 9.0 [facility] Glucose Urine UA >=1000(A) Negative mg/dL [facility] Urine Blood Trace(A) Negative [facility] Specific [place] - Urine >=1.030(H) 1.005 - 1.025 [facility] Urine Protein 300 (3+)(A) Neg-Trace mg/dL [facility] Urine Ketones Negative Negative mg/dL [facility] Nitrite Urine Negative Negative [facility] Leukocyte Esterase Urine Negative Negative [facility] RBC Urine 0-2 0 - 2 /HPF [facility] Urine WBC 0-5 0 - 5 /HPF [facility] Urine Squamous Epithelial Cell 0-2 0 - 2 /HPF [facility] Urine Bacteria None Seen None Seen [facility] Hyaline Casts, Urine 0-2 0 - 2 /LPF [facility] 09/05/2025 2:21 PM EST 09/05/2025 2:37 PM EST us Generic External Data Provider LAB URINE ORDERAB LES Final Result Performing Organization Address City/State/[facility] Co de Phone Number [facility] [address] [place] [phone] documented in this encounter Visit Diagnoses Not on filedocumented in this encounter Additional Health Concerns Assessment Noted Time PHQ-9 Depression Total Score: 13 01/27/ 025 8:59 AM EDT documented as of this encounter Care Teams Shingle Bolt Cutter Relationship Specialty Start Date End Date Marilee Cordero FNP [address] [place] [address] PCP - General Family Medicine 03/23/23 Cristo Garcia MD [address] [place] [address] [address] [place] [address] Rheumatology 09/01/24 Yoselyn Lyons 180 [place] [address] Ophthalmology 09/01/24 Balbir Don 22 [facility] 301 [place] [address] Sleep Medicine 09/01/24 Lindsay Nur, MorenitaD 230 [place] [address] Pharmacist Pharmacy 05/29/25 Meño Butcher MD [address] 3rd [place] [address] Cardiology 07/06/25 Dr. Ramirez 100 [facility] 200 [place] [address] Nephrology 09/01/24 documented as of this encounter
--- OUTSIDE RECORDS SUMMARY | 2025-09-09 15:10 | XMS_ITS | Encounter Summary ---
Author Organization [employer] Address 75 [facility] 7t [place] [address] Care Team Providers Care Automatic Folder Seamer Name Role Phone Marilee Cordero OPERATIONS RESEARCH ANALYST Primary Care Provider [phone] Cristo Garcia MD Unavailable Yoselyn Lyons Unavailable Unavailable Balbir Don Unavailable Lindsay Nur PharmD Unavailable [phone] Meño Butcher MD Unavailable [phone] Encounter Details Date Type Department Care Team [...] Description 10/02/2025 2:30 PM EST Medication Management [facility] MED & PEDS 505 [place] [address] Lindsay Nur PharmD 230 [place] [address] documented as of this encounter Visit Diagnoses Not on filedocumented in this encounter Additional Health Concerns Assessment Noted Time PHQ-9 Depression Total Score: 13 025 8:59 AM EDT documented as of this encounter Care Teams Automatic Folder Seamer Relationship Specialty Start Date End Date Marilee Cordero FNP 230 [place] [address] PCP - General Family Medicine 03/23/23 Cristo Garcia MD [address] [place] [address] Rheumatology 09/01/24 Yoselyn Lyons 180 [place] [address] Ophthalmology 09/01/24 Balbir Don 22 [facility] [address] [place] [address] Sleep Medicine 09/01/24 Lindsay Nur, MorenitaD [address] [place] [address] Pharmacist Pharmacy 05/29/25 Meño Butcher MD 11 [facility] 3rd [place] [address] Cardiology 07/06/25 Dr. Ramirez [address] [place] [phone] Nephrology 09/01/24 documented as of this encounter
--- OUTSIDE RECORDS SUMMARY | 2025-09-09 15:10 | XMS_ITS | Encounter Summary ---
Author Organization [employer] Address 75 [facility] 7t [place] [address] Care Team Providers Care Metal Fabricating Supervisor Name Role Phone Marilee Cordero MEMBERSHIP MANAGER Primary Care Provider [phone] Cristo Garcia MD Unavailable Doris Candelario Unavailable [phone] Yoselyn Lyons Unavailable Unavailable Balbir Don Unavailable Lindsay NurD Unavailable [phone] Meño Butcher MD Unavailable [phone] Encounter Details Date Type Department Care Team (Late st Contact Info) Description 08/11/2023 Abstract [facility] ADULT D[facility]AL 230 [place], [place] [phone] Gavino Lacey, DIANA 230 [place], [place] [phone] Social History Tobacco Use Types Packs/Day Years [...] Description 10/02/2025 2:30 PM EST Medication Management [facility] MED & PEDS [address] [place] [address] Lindsay Nur, PharmD 230 [place] [address] documented as of this encounter Visit Diagnoses Not on filedocumented in this encounter Additional Health Concerns Assessment Noted Time PHQ-9 Depression Total Score: 1 10/17/20 22 10:05 AM EST documented as of this encounter Care Teams Metal Fabricating Supervisor Relationship Specialty Start Date End Date Marilee Cordero FNP 230 [place] [address] PCP - General Family Medicine 03/23/23 Cristo Garcia MD [address] [place] [address] [place] [address] Rheumatology 09/01/24 Doris Candelario [address] [place] [address] Cardiology 09/01/24 07/05/25 Yoselyn Lyons 180 [place] [address] Ophthalmology 09/01/24 Balbir Don 22 [facility] 301 [place] [address] Sleep Medicine 09/01/24 Lindsay Nur PharmD 230 [place] [address] Pharmacist Pharmacy 05/29/25 Meño Butcher MD 11 [facility] 3rd [place] [address] Cardiology 07/06/25 Dr. Ramirez 100 [facility] 200 [place] [address] Nephrology 09/01/24 [facility] 03/18/25 05/04/25 documented as of this encounter
--- OUTSIDE RECORDS SUMMARY | 2025-09-09 15:10 | XMS_ITS | Encounter Summary ---
Author Organization [employer] Address 75 [facility] 7t [place] [address] Care Team Providers Care Heel Slicker Name Role Phone Marilee Cordero BRANDEN Primary Care Provider [phone] Cristo Garcia MD Unavailable Yoselyn Lyons Unavailable Unavailable Balbir Don Unavailable Lindsay Nur PharmD Unavailable [phone] Meño Butcher MD Unavailable [phone] Encounter Details Date Type Department Care Team (Late st Contact Info) Description 09/05/2025 Telephone [facility] MED & PEDS [address] [place], [place] [phone] Lindsay Nur, PharmD 230 [place], [place] [phone] Social History Tobacco Use Types Packs/Day Years [...] Description 10/02/2025 2:30 PM EST Medication Management [facility] MED & PEDS 505 [place] [address] Lindsay Nur PharmD 230 [place] [address] documented as of this encounter Visit Diagnoses Not on filedocumented in this encounter Additional Health Concerns Assessment Noted Time PHQ-9 Depression Total Score: 13 025 8:59 AM EDT documented as of this encounter Care Teams Heel Slicker Relationship Specialty Start Date End Date Marilee Cordero FNP 230 [place] [address] PCP - General Family Medicine 03/23/23 Cristo Garcia MD [address] [place] [address] 402 [place] [address] Rheumatology 09/01/24 Yoselyn Lyons 180 [place] [address] Ophthalmology 09/01/24 Balbir Don 22 [facility] 301 [place] [address] Sleep Medicine 09/01/24 Lindsay Nur PharmD 230 [place] [address] Pharmacist Pharmacy 05/29/25 Meño Butcher MD [address] [place] [address] 3rd [place] [address] Cardiology 07/06/25 Dr. Ramirez 100 [facility] 200 [place] [address] Nephrology 09/01/24 documented as of this encounter
--- OUTSIDE RECORDS SUMMARY | 2025-09-09 15:13 | XMS_ITS | Clinical Summary ---
Author Organization [facility] [place] [address] Phone Care Team Providers Care Compressor Stations Superintendent Name Role Phone Physician, Pcp Unknown Primary [...] (CMS/HCC V24, CMS/HCC V28) 06/06/2025 Hypoxia 02/15/2025 Surgical History Surgery Date Site/Laterality Comments OTHER SURGICAL HISTORY 07/03/2002 PROCEDURE: HISTORY OTHER; COMMENT: nasal septal reconstruction with laser turbinectomy Medical History Medical History Date Comments HTN (hypertension) 06/04/2012 DX:HTN (hyper tension) DM2 (diabetes mellitus, type 2) [place] [place] [facility] [place]) 06/04/2012 DX:DM2 (diabetes mellitus, t ype 2) ([facility]) Obstructive sleep apnea 06/04/2012 DX:Obstr uctive sleep apnea Psoriatic arthritis ([facility] [place], [facility] V28) 06/04/2012 DX:Psoriatic arthritis ([facility]) Hyperlipidemia 06/04/2012 DX:Hyperlipidemi a; COMMENT: IMO update [...] Heart attack Other cousins with fa char[place]'s 40's Asthma Sister Relation Name Status Comments [...] Date/Time Associated Diagnosis Comments ECG ANNOTATED 06/09/2025 BASIC METABOLIC PANEL Routine 06/07/2025 5:51 AM EDT HEPATITIS C ANTIBODY Routine 02/16/2025 2:00 PM EDT from Last 3 Months or Most Recently Relevant to Health Maintenance Results * ECG-Annotated (06/09/2025) us Provider Onbase MD ECG ORDERABLES Final Result * (ABNORMAL) Basic metabolic panel (06/07/2025 5:51 AM EDT) Sodium 139 133 - 145 mmol/L LAB CHEMISTRY METHOD 06/07/2025 6:58 AM EDT [facility] Potassium 3.6 3.5 - 5.5 mmol/L LAB CHEMISTRY METHOD 06/07/2025 6:58 AM EDT [facility] Chloride 99 96 - 110 mmol/L LAB CHEMISTRY METHOD 06/07/2025 6:58 AM [facility] CO2 35(H) 21 - 32 mmol/L LAB CHEMISTRY METHOD 06/07/2025 6:58 AM EDT [facility] Anion Gap 5 3 - 11 LAB CHEMISTRY METHOD 06/07/2025 6:58 AM EDT [facility] Glucose 200(H) 70 - 100 mg/dL LAB CHEMISTRY METHOD 06/07/2025 6:58 AM EDT [facility] BUN 29(H) 5 - 25 mg/dL LAB CHEMISTRY METHOD 06/07/2025 6:58 AM EDT [facility] Creatinine 1.20 0.70 - 1.30 mg/dL LAB CHEMISTRY METHOD 06/07/2025 6:58 AM EDT [facility] eGFR 71 >=60 mL/min/1. 73m2 LAB CHEMISTRY METHOD 06/07/2025 6:58 AM EDT [facility] Comment:Calculation based on the Chronic Kidney Disease Epidemiology Collaboration (CKD-EPI) equation refit without adjustment for race. BUN/Creatinine Ratio 24.2 LAB CHEMISTRY METHOD 06/07/2025 6:58 AM EDT [facility] Calcium 9.2 8.5 - 10.5 mg/dL LAB CHEMISTRY METHOD 06/07/2025 6:58 AM EDT [facility] Blood Venous blood specimen / Unknown Venipuncture / Unknown 06/07/2025 5:51 AM EDT 06/07/2025 6:23 AM EDT Hyacinth DORSEY LAB BLOOD ORDERABLES Final R esult [facility] [address] [place] [address], * Hepatitis C antibody (02/16/2025 2:00 PM EDT) Hepatitis C Antibody Negative Negative LAB CHEMISTRY METHOD 02/16/2025 5:37 PM EDT [facility] Blood Venous blood specimen / Unknown Venipuncture / Unknown 02/16/2025 2:00 PM EDT 02/16/2025 2:05 PM EDT us Ish David MD LAB BLOOD ORDERABLES Final Res ult [facility] ([facility]) [facility] [address] [place] [address], [place] [phone] from Last 3 Months or Most Recently Relevant to Health Maintenance Insurance [facility] PUBLIC PL[facility] Advance Directives * Full [...] currently active code status orders. Care Teams Compressor Stations Superintendent Relationship Specialty Start Date End Date Physician, Pcp Unknown PCP - General 05/01/25
== END 2025-09-09 14:01 | disposition home or self-care (01) ==
LOC: HO.HKA 13:33
PROVIDERS: PCP Registered Nurse; Visit Provider Internal Medicine Hypertension Specialist
DX: R80.9 Proteinuria, unspecified (principal); R31.9 Hematuria, unspecified; L40.50 Arthropathic psoriasis, unspecified; I50.23 Acute on chronic systolic (congestive) heart failure; G47.33 Obstructive sleep apnea (adult) (pediatric)
CPT/HCPCS: 99214

== ENCOUNTER → 2025-09-09 20:30 | Outpatient (REF) | payer OTHER, SELFPAY | LOC: HO.SL 20:30 | PROVIDERS: PCP Registered Nurse; Visit Provider Internal Medicine | DX: I11.0 Hypertensive heart disease with heart failure (principal); I50.23 Acute on chronic systolic (congestive) heart failure; L40.9 Psoriasis, unspecified; G47.33 Obstructive sleep apnea (adult) (pediatric); R31.9 Hematuria, unspecified; R80.9 Proteinuria, unspecified | CPT/HCPCS: 99212 ==

== ENCOUNTER → 2025-09-09 21:10 | Outpatient (BNV) | payer OTHER, SELFPAY | PROVIDERS: PCP Registered Nurse; Visit Provider Internal Medicine | DX: G47.33 Obstructive sleep apnea (adult) (pediatric) (principal); G47.61 Periodic limb movement disorder | CPT/HCPCS: 95810 ==

== ENCOUNTER 2025-09-17 13:58 | Outpatient (AMB) | payer OTHER, SELFPAY ==
--- OUTSIDE RECORDS SUMMARY | 2018-07-03 08:45 | XMS_ITS | Continuity of Care Document ---
Author Organization [facility] vices Address [address] [place] [address] Phone Care Team Providers Care Community Outreach Advocate Name Role Phone Unavailable Unavailable Unavailable Procedures Procedure Date Psychotherapy, 30 Minutes With Patient S Psych Dx Eval Psychotherapy, 30 Minutes With Patient A Advance Directives Directive Yes / No Effective Date File Name No Information Encounters Encounter Description Practice Location Reason(s) For Visit Diagnoses Date Provider Providers Copied on Encounter Psychotherap y, 30 Minutes With Patient [facility], [address] [place] [address], tel:[phone] [facility] Behavioral Health Individual Therapy (chief complaint) Cannabis use, unspecified, uncomplicatedC ocaine use, unspecified, uncomplicatedM ajor depressive disorder, recurrent, mildPost-traum atic stress disorder, unspecified Sep-0 8 No Information Psych Dx Eval [facility], [address] [place] [address], [facility], tel:[phone] [facility] Behavioral Health Initial Assessment (chief complaint) Major depressive disorder, recurrent, mildPost-traum atic stress disorder, unspecifiedCoc norman use, unspecified, uncomplicatedC annabis use, unspecified, uncomplicated May- 8 No Information Psychotherap y, 30 Minutes With Patient [facility], [address] [place] [address], tel:[phone] [facility] Behavioral Health depression (chief complaint) Major depressive disorder, recurrent, mildPost-traum atic stress disorder, unspecified May-2 8 No Information Family History Family Member Type Diagnosis Age At Onset No Information Payers Payer name Insurance type Covered constitution party ID Authoriza tiluiz(s) BRII Alonso [id number] Social History Type Description Quantity Date Captured Comments Sex Male Smoking Status No Information Chief Complaint And Reason For Visit From encounter dated '07/03/2018 13:45'. Individual Therapy (chief complaint). Description: Mr. Saldana presented for scheduled individual therapy session. Reason For Referral Reason For Referral No Information History Of Present Illness Encounter Date Complaint History Of Prese nt Illness Individual Therapy Mr. Saldana presented for scheduled individual therapy session. Initial Assessment depression The patient pres ents with depressed mood, difficulty falling asleep, difficulty staying asleep and hallucinations. The patient's risk factors include drug abuse, financial worries, history of depression and history of suicidal attempts. The depression is aggravated by conflict or stress. The patient's relieving factors are medication. Functional Status Date Functional Assessmen t No Information Instructions Date Instruction Additional Infor mation No Information Assessments Type Assessment Date assessment Cannabis use, unspecified, uncom plicated assessment Cocaine use, unspecified, uncomp licated assessment Major depressive disorder, recur rent, mild assessment Post-traumatic stress disorder, unspecified Patient Care Teams Name Effective Dates (start - stop) Status Members No Information
--- OUTSIDE RECORDS SUMMARY | 2018-07-03 08:45 | XMS_ITS | Continuity of Care Document ---
Author Organization [facility] vices Address [address] [place] [address] Phone Care Team Providers Care Grain Broker And Market Operator Name Role Phone Unavailable Unavailable Unavailable Procedures Procedure Date Psychotherapy, 30 Minutes With Patient S Psych Dx Eval Psychotherapy, 30 Minutes With Patient A Advance Directives Directive Yes / No Effective Date File Name No Information Encounters Encounter Description Practice Location Reason(s) For Visit Diagnoses Date Provider Providers Copied on Encounter Psychotherap y, 30 Minutes With Patient [facility], [address] [address], tel:[phone] [facility] Behavioral Health Individual Therapy (chief complaint) Cannabis use, unspecified, uncomplicatedC ocaine use, unspecified, uncomplicatedM ajor depressive disorder, recurrent, mildPost-traum atic stress disorder, unspecified Sep-0 8 No Information Psych Dx Eval [facility], [address] [place] [address], [facility], tel:[phone] [facility] Behavioral Health Initial Assessment (chief complaint) Major depressive disorder, recurrent, mildPost-traum atic stress disorder, unspecifiedCoc norman use, unspecified, uncomplicatedC annabis use, unspecified, uncomplicated May- 8 No Information Psychotherap y, 30 Minutes With Patient [facility], [address] [address], tel:[phone] [facility] Behavioral Health depression (chief complaint) Major depressive disorder, recurrent, mildPost-traum atic stress disorder, unspecified May-2 8 No Information Family History Family Member Type Diagnosis Age At Onset No Information Payers Payer name Insurance type Covered democrat ID Authoriza tiluiz(s) BRII Alonso [id number] Social History Type Description Quantity Date Captured [...]
--- OUTSIDE RECORDS SUMMARY | 2018-07-03 08:45 | XMS_ITS | Continuity of Care Document ---
Author Organization [facility] vices Address [address] [place] [address] Phone Care Team Providers Care Thermite Bomb Loader Name Role Phone Unavailable Unavailable Unavailable Procedures Procedure Date Psychotherapy, 30 Minutes With Patient S Psych Dx Eval Psychotherapy, 30 Minutes With Patient A Advance Directives Directive Yes / No Effective Date File Name No Information Encounters Encounter Description Practice Location Reason(s) For Visit Diagnoses Date Provider Providers Copied on Encounter Psychotherap y, 30 Minutes With Patient [facility], [address] [place] [address], tel:[phone] [facility] Behavioral Health Individual Therapy (chief complaint) Cannabis use, unspecified, uncomplicatedC ocaine use, unspecified, uncomplicatedM ajor depressive disorder, recurrent, mildPost-traum atic stress disorder, unspecified Sep-0 8 No Information Psych Dx Eval [facility], [address] [place] [address], [facility], tel:[phone] [facility] Behavioral Health Initial Assessment (chief complaint) Major depressive disorder, recurrent, mildPost-traum atic stress disorder, unspecifiedCoc norman use, unspecified, uncomplicatedC annabis use, unspecified, uncomplicated May- 8 No Information Psychotherap y, 30 Minutes With Patient [facility], [address] [place] [address], tel:[phone] [facility] Behavioral Health depression (chief complaint) Major depressive disorder, recurrent, mildPost-traum atic stress disorder, unspecified May-2 8 No Information Family History Family Member Type Diagnosis Age At Onset No Information Payers Payer name Insurance type Covered republican ID Authoriza tiluiz(s) BRII Alonso [id number] Social History Type Description Quantity Date Captured [...]
--- OUTSIDE RECORDS SUMMARY | 2018-07-03 08:45 | XMS_ITS | Continuity of Care Document ---
Author Organization [facility] vices Address [address] [place] [address] Phone Care Team Providers Care Communication Technician Name Role Phone Unavailable Unavailable Unavailable Procedures Procedure Date Psychotherapy, 30 Minutes With Patient S Psych Dx Eval Psychotherapy, 30 Minutes With Patient A Advance Directives Directive Yes / No Effective Date File Name No Information Encounters Encounter Description Practice Location Reason(s) For Visit Diagnoses Date Provider Providers Copied on Encounter Psychotherap y, 30 Minutes With Patient [facility], [address] [place] [address], tel:[phone] [facility] Behavioral Health Individual Therapy (chief complaint) Cannabis use, unspecified, uncomplicatedC ocaine use, unspecified, uncomplicatedM ajor depressive disorder, recurrent, mildPost-traum atic stress disorder, unspecified Sep-0 8 No Information Psych Dx Eval [facility], [address] [place] [address], [facility], tel:[phone] [facility] Behavioral Health Initial Assessment (chief complaint) Major depressive disorder, recurrent, mildPost-traum atic stress disorder, unspecifiedCoc norman use, unspecified, uncomplicatedC annabis use, unspecified, uncomplicated May- 8 No Information Psychotherap y, 30 Minutes With Patient [facility], [address] [place] [address], tel:[phone] [facility] Behavioral Health depression (chief complaint) Major depressive disorder, recurrent, mildPost-traum atic stress disorder, unspecified May-2 8 No Information Family History Family Member Type Diagnosis Age At Onset No Information Payers Payer name Insurance type Covered libertarian ID Authoriza tiluiz(s) BRII Alonso [id number] Social History Type Description Quantity Date Captured [...]
[2025-09-17 14:07] VITALS: BP 110/62; PULSE 67; O2SAT 93; BMI 31.8
--- NOTE | 2025-09-17 14:07 | MHC.OFFVIS ---
Vital Signs 09/17/25 14:07 Height 6 ft Weight 234 lb 12.677 oz BMI 31.8 BP 110/62 Blood Pressure Location Lt brachial Position Sitting Pulse 67 Pulse Source Pulse Oximeter Pulse Oximetry (%) 93 Oxygen Delivery Method Room Air Intake Visit Reasons: Dyspnea on Exertion Intake Note: pt is here for follow up and states he is feeling tired, and he checks his oxygen at home and it was 80 while he was resting. here for sleep study results. Hotel Dining Room Cashier Required: Yes Hotel Dining Room Cashier Services: Hotel Dining Room Cashier Present Hotel Dining Room Cashier Name: Ambika [id number] Allergies No Known Allergies Allergy (Verified 09/17/25 14:22) Medication List - Last Reconciled 09/17/25 by Doris Simmons MD acetaminophen 650 mg PO TID PRN aspirin 81 mg PO DAILY atorvastatin 40 mg PO BEDTIME carvedilol 6.25 mg PO BID empagliflozin (Jardiance) 10 mg PO DAILY furosemide (Lasix) 80 mg PO BID ixekizumab (Taltz Autoinjector) 80 mg subcut Q4W metformin ER 500 mg PO BID sacubitril-valsartan 49-51 mg (Entresto) 1 tab PO BID spironolactone 25 mg PO DAILY tamsulosin 0.4 mg PO QPM Do you need a note to return to daycare/school/sports/work: No HPI HPI Dyspnea on Exertion: Details: This 55 years old gentleman is here for follow-up after the sleep study. He had polysomnogram study which did not show evidence for sleep apnea, but his O2 sat was low during sleep, c/w nocturnal hypoxemia. Average O2 sat during the night 96%, lowest O2 sat 79% and O2 sat below 88% for 12 minutes. He was started on O2 supplementation during the study. During the daytime when he is at home he notices that his O2 sat is as low as mid 80s. But goes up and down. He does not have any cough or wheezing. His basic underlying problem is congestive heart failure and pulmonary hypertension. Pulmonary function test is still pending. During the daytime is O2 sat falls as low as 85-88 % and he does get short of breath with minimal exertion He is being treated with diuretic therapy and has lost significant amount of weight in the last 2 months [facility] Medical History (Updated 09/17/25 @ 14:32 by Doris Simmons MD) Hypoxemia Nocturnal hypoxemia Dyspnea on minimal exertion Pulmonary hypertension Dyspnea on exhalation RAKAN (obstructive sleep apnea) CHF (congestive heart failure) Psoriasis Psoriatic arthritis Hypercholesteremia Lumbago with sciatica, right side Elev transaminase/LDH Neuropathy Diabetes Psoriasis Family History Father Diabetes HTN (hypertension) Mother Diabetes Social History Household Members: Spouse Housing: House Do you presently have visiting nurse or other home services: No Alcohol intake: never Patient Tobacco Use Status: Never used Tobacco e-Cigarette/Vaping Use: Never Used service: No Current occupational status: employed 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 Review of Systems Const All systems reviewed & are unremarkable except as noted in HPI and below Eyes Reports no additional complaints ENT Reports no additional complaints Card Denies chest pain, Denies irregular heart rhythm, Reports dyspnea on exertion and Reports orthopnea Resp Reports as per HPI and Reports dyspnea on exertion GI Reports no additional complaints Reports nocturia Musc Reports muscle weakness (General muscular weakness) Skin/Breast Reports other (Changes of stasis dermatitis over the legs) Neuro Reports no additional complaints Psych Reports no additional complaints Endo Reports other (Being treated for diabetes mellitus) Faustino/Lymph Reports no additional complaints Aller/Immun Reports no additional complaints Physical Exam Vital Signs: Last Vital Signs Pulse 67 09/17/25 14:07 BP 110/62 09/17/25 14:07 Pulse Ox 93 09/17/25 14:07 Oxygen Delivery Method Room Air 09/17/25 14:07 BMI result Body Mass Index 31.8 Const General: comfortable, no acute distress, alert and awake Orientation/consciousness: patient oriented x3 HEENT Head: Yes normal to inspection General nose exam: No nasal polyps present and No nasal discharge present Face and sinus: Yes sinuses nontender Mouth: oropharynx abnormals (Narrow and crowded Mallampati scale 4) Throat: Yes posterior oropharynx normal Eyes General: appearance normal, both eyes and all related structures Neck Neck: Yes normal visual inspection, Yes no lymphadenopathy, Yes trachea midline and Yes no JVD Thyroid: Thyroid normal Chest Chest palpation & inspection: normal inspection of the chest, normal palpation of entire chest wall and no tenderness Resp Effort & Inspection: normal respiratory effort Auscultation: clear to auscultation bilaterally, no crackles and no wheezes Cardio Palpation: normal PMI Rate: regular rate Rhythm: regular rhythm Heart sounds: no gallops and no murmurs Peripheral pulses: Peripheral pulses 2+ throughout GI Palpation (GI): Soft to palpation, nontender, No hepatosplenomegaly present and no masses Auscultation: normal bowel sounds Back/Spine/Pelvis Thoracic/Lumbar Spine: thoracic and lumbar spine normal to inspection Skin General skin exam: other (Stasis dermatitis lesions over the legs) Neuro General: patient oriented x3 and no focal motor deficits Cranial nerves: Yes CN's II-XII intact bilaterally Extrem General: Yes normal to inspection, Yes no clubbing, cyanosis or edema, Yes no calf tenderness and Yes venous stasis dermatitis (Both legs worse on the left side) Psych Appearance: grossly normal and well kempt Speech and movement: Normal speech and movement present Assessment & Plan Assessment & Plan (1) Nocturnal hypoxemia: Comment: 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 During polysomnogram study he had O2 sat below 88% for 9-12 minutes, and he was started on O2 supplementation He did not have any significant degree of central or obstructive sleep apnea Code(s): G47.34 - Idiopathic sleep related nonobstructive alveolar hypoventilation Category: Medical Plan: He will be started on O2 2 L/minute to use during the night. (2) Pulmonary hypertension: Comment: PATIENT EDUCATED ABOUT PULMONARY HYPERTENSION, THIS SEEMS TO BE PRIMARILY OF CARDIAC ORIGIN. HE IS BEING TREATED FOR CHRONIC CONGESTIVE HEART FAILURE . FINDING OF NOCTURNAL HYPOXEMIA WELL EXERCISE INDUCED HYPOXEMIA MAY BE CONTRIBUTING TO HIS PULMONARY HYPERTENSION.. Code(s): I27.20 - Pulmonary hypertension, unspecified Category: Medical Plan: I THINK HE WILL BENEFIT FROM THE USE OF O2 2 L/MINUTE DURING THE DAYTIME, ESPECIALLY WITH ANY PHYSICAL EXERTION . Coding Level of Care Code Est Pt Level 3 (46627) Diagnoses Nocturnal hypoxemia G47.34 Pulmonary hypertension I27.20
--- OUTSIDE RECORDS SUMMARY | 2025-09-18 02:08 | XMS_ITS | Encounter Summary ---
Author Organization [email or web address] Address [address] [facility] [address] [place] [address] Care Team Providers Care Family Day Care Worker Name Role Phone Marilee Cordero [facility] Primary Care Provider [phone] Cristo Garcia MD Unavailable Doris Candelario Unavailable [phone] Yoselyn Lyons Unavailable Unavailable Balbir Don Unavailable Lindsay NurD Unavailable [phone] Meño Butcher MD Unavailable [phone] Encounter Details Date Type Department Care Team (Late st Contact Info) Description 08/11/2023 Abstract [facility] [address] [place], [place] [phone] Gavino Lacey, DIANA [address] [place], [place] [phone] Social History Tobacco Use Types Packs/Day Years [...] 10/02/2025 2:30 PM EST Medication Management [facility] [address] [place] [address] Lindsay Nur, PharmD [address] [place] [address] documented as of this encounter Visit Diagnoses Not on filedocumented in this encounter Additional Health Concerns Assessment Noted Time PHQ-9 Depression Total Score: 1 10/17/20 22 10:05 AM EST documented as of this encounter Care Teams Family Day Care Worker Relationship Specialty Start Date End Date Marilee Cordero FNP [address] [place] [address] PCP - General Family Medicine 03/23/23 Cristo Garcia MD [address] [place] [address] [place] [id number] Rheumatology 09/01/24 Doris Candelario [address] [place] [address] Cardiology 09/01/24 07/05/25 Yoselyn Lyons [address] [place] [address] Ophthalmology 09/01/24 Balbir Don [address] [facility] [address] [place] [address] Sleep Medicine 09/01/24 Lindsay Nur PharmD [address] [place] [address] Pharmacist Pharmacy 05/29/25 Meño Butcher MD [address] [facility] [address] [place] [address] Cardiology 07/06/25 Dr. Ramirez [address] [facility] [address] [place] [address] Nephrology 09/01/24 [facility] 03/18/25 05/04/25 documented as of this encounter
--- OUTSIDE RECORDS SUMMARY | 2025-09-18 02:09 | XMS_ITS | Clinical Summary ---
Author Organization [facility] Address [address] [place] [address] Care Team Providers [employer] Name Role Phone Marilee Cordero BRANDEN Primary Care Provider [phone] Cristo Garcia MD Unavailable Yoselyn Lyons Unavailable Unavailable Balbir Don Unavailable Lindsay Nur PharmD Unavailable [phone] Meño Btucher MD Unavailable [phone] Allergies No known active allergies Medications Blood Pressure kit Use daily Active Blood Glucose Monitoring Suppl (FreeStyle Prim Lite) w/Device kit 1 each by Other [...] hyperglycemia, with long-term current use of insulin ([facility]) Inject 3 mg under the skin 1 (one) time per week. 2 mL 2 09/05/20 25 Active metFORMIN XR (Glucophage-XR ) 500 MG 24 hr tabletIndicati ons:Type 2 diabetes mellitus with hyperglycemia, with long-term current use of insulin ([facility]) TAKE 1 TABLET BY MOUTH TWICE DAILY IN THE MORNING AND IN THE EVENING WITH MEALS 180 tablet 1 09/05/20 25 Active insulin glargine (Lantus SoloStar) 100 UNIT/ML penIndications :Type 2 diabetes mellitus with hyperglycemia, with long-term current use of insulin ([facility]) Inject 20 Units under the skin at [...] hyperglycemia, with long-term current use of insulin ([facility]) TAKE 1 TABLET BY MOUTH TWICE DAILY [...] Date Hematuria 04/29/2025 Overview (07/06/2025): Following with [facility] - Dr. Cramre Assessment & Plan (07/06/2025 6:01 PM EDT): - Consult March 2025: Possible causes including nephrolithiasis, BPH, UTI, cancer. - Urine cytopath negative for high-grade urothelial carcinoma - Plan: PSA. Schedule a CT urogram. Plan for cystoscopy to directly visualize the bladder and urethra. Assessment & Plan (04/29/2025 8:42 AM EDT): Hematuria noted on point of care UA, confirmed with send out Following with [facility] Diabetic polyneuropathy asso ciated with type [...] Followed by [facility] - Dr. James Hogan 10mg daily Psoriatic arthritis ([facility]/HCC) 08/30/2024 Overview (04/01/2025): Followed by [facility] Rheum - Dr. Garcia Med therapy: DMARD [...] (07/06/2025): Previously following with [facility], established with [facility] - Dr. Butcher April: Nuclear stress test: [...] Hospitalization for CHF exacerbation: Oct 2023 at [facility] - Reviewed condition and concerning signs/symptoms Pharmacotherapy: Aspirin 81mg daily Atorvastatin 40mg nightly Furosemide 40mg BID (RX nephrology) Spironolactone 25mg daily (RX cards) Jardiance 25mg daily Carvedilol 6.25mg BID Entresto 24-26mg BID Assessment & Plan (04/01/2025 7:07 PM EDT): Follow-up with [facility] as scheduled in April 2025. Reports they are already on wait list in case anything sooner becomes available. Assessment & Plan (01/27/2025 9:50 AM EDT): Cont current therapy, symptomatic SOB/BELL Referral to [facility] for further eval Assessment & Plan [...] following with renal for proteinuria -Established with [facility] Assessment & Plan (04/01/2025 7:01 PM EDT): - Initial BG reading [facility]. Repeat value HH s/p 10 units lispro. Re-check #3 resulted 436 s/p second dose of 10 units insulin lispro. Pt unable to void for UA. Discussed ED precautions. - Previous rx of Jardiance 10mg daily (rx through [facility] - unclear if currently taking) - No [...] tx in Rheum note 02/04/21) -Re-established with [facility] Nov 2021, last consult appt December 2023 Plan to hold methotrexate with hx cardiac conditions Taltz injections through Rheum with notable improvement Assessment & Plan (03/03/2024 2:42 PM EDT): -Previous tx with methotrexate and Enbrel (hx of failed Humira tx in Rheum note 02/04/21) -Re-established with [facility] Rhe[facility] Nov 2021, last consult appt December 2023 Plan to hold methotrexate with hx cardiac conditions Authorization for Taltz is pending Assessment & Plan (08/11/2023 1:16 PM EDT): -Previous tx with methotrexate and Enbrel (hx of failed Humira tx in Rheum note 02/04/21) -Re-established with [facility] Rhe[facility] Nov 2021 Says may have re-started on methotrexate but unsure. Will bring med list to next appt. -Pt was also referred to [facility] Derm Team, appt pending Assessment & Plan (04/12/2023 1:37 PM EDT): -Previous tx with methotrexate and Enbrel (hx of failed Humira tx in Rheum note 02/04/21) -Re-established with [facility] Rhe[facility] Nov 2021 Says may have re-started on methotrexate but unsure. Will bring med list to next appt. -Pt was also referred to [facility] Derm Team, appt pending Assessment & Plan (10/20/2022 9:18 AM EST): -Previous tx with methotrexate and Enbrel (hx of failed Humira tx in Rheum note 02/04/21) -Reports has not been taking any meddications for psoriasis in > 6 month, interested in re-establishing with specialists -Upcoming appt with [facility] Rhe[facility] Nov 2021 -Pt was also referred to [facility] Derm Team, appt pending Hypertension [...] reporting intermittent discomfort with mask Referral to [facility] Sleep Medicine for further eval and management Resolved Problems Problem Noted Date Diagnosed Date Resolved Date Retention of urine 02/26/2015 3 Elevated levels of transamin ase & lactic acid dehydrogenase 08/14/2012 10/20/2022 Encounters Date Type Department Care Team Description 09/05/2025 Orders Only GENERIC EXTERNAL DATA DEPARTMENT Provider, Generic External Data 09/05/2025 Telephone [facility] [address] [place] [address] Lindsay Nur, PharmD 09/05/2025 Travel 09/01/2025 Telephone [facility] [address] [place] [address] Marilee Cordero FNP 09/01/2025 Travel 08/26/2025 Telephone [facility] [address] [place] [address] Marilee Cordero FNP Transition Of Care (Tcm) 08/25/2025 Orders Only [facility] [address] [place] [address] Jamaica Roman MD Diabetic macular edema (HCC) (Primary Dx); Primary hypertension 08/20/2025 Telephone [facility] [address] [place] [address] Lindsay Nur PharmD 07/08/2025 Results Follow-Up [facility] [address] [place] [address] Marilee Cordero FNP Lipid Panel, Standard, Vitamin B12/Folate, Serum Panel, Methylmalonic Acid 07/04/2025 8:30 AM EDT Office Visit [facility] [address] [place] [address] Marilee Cordero FNP Type 2 diabetes mellitus [...] Generic External Data 07/04/2025 Travel 07/03/2025 Telephone [facility] [address] [place] [address] Marilee Cordero FNP chart prep 06/26/2025 Travel [...] 10/02/2025 2:30 PM EST Medication Management [facility] [address], [place] [phone] Lindsay Nur, PharmD [address], [place] [phone] Health Maintenance Due Date Last Done Comments CT Colonography 1970 Colonoscopy 1970 Colorectal Cancer Screening 1970 FIT DNA/Cologuard 1970 FIT 1970 FOBT 1970 Sigmoidoscopy 1970 Eye Exam 1980 Dental Prophylaxis 11/10/2012 05/09/2012, 0 12/13/2011, 07/22/2009 Dental Oral Exam 07/11/2014 01/07/2014 RSV Patients and Patients Aged 60 years or older (1 - Risk 50-74 years 1-dose series) 2020 Dental X-Ray: Bitewings 08/12/2024 08/11/20 23, 01/07/2014, 10/01/2010, Additional history exists Depression Monitoring [...] Procedure Name Priority Date/Time Associated Diagnosis Comments IMMUNOFIXATION, SERUM Routine 09/05/2025 2:27 PM EST ANCA SCREEN WITH REFLEX TO TITER Routine 09/05/2025 2:27 PM EST GLOMERULAR BASEMENT MEMBRANE ANTIBODY (IGG) Routine 09/05/2025 2:27 PM EST RAMESH SCREEN, IFA, W/REFL TITER AND PATTERN Routine 09/05/2025 2:27 PM EST PROTEIN, TOTAL AND PROTEIN ELECTROPHORESIS Routine 09/05/2025 2:27 PM EST HEPATITIS B [...] Recently Relevant to Health Maintenance Results * ANCA Screen with Reflex to ANCA Titer (09/05/2025 2:27 PM EST) Pathologist [facility] ANCA Screen NEGATIVE NEGATIVE [facility] Comment:ANCA screen uses ind irect immunofluorescence to detectantibodies to neutrophil cytoplasmic antigens. Apositive screen reflexes to titer and pattern. Patternsinclude cytoplasmic (c-ANCA) and perinuclear (p-ANCA)both of which are associated with vasculitis, andatypical p-ANCA which is associated with inflammatorybowel disease and other disorders.THIS TEST WAS PERFORMED AT:[facility] [address] [id number] MCINTOSH MD P-ANCA Titer [facility] Atypical P-ANCA Titer [facility] C-ANCA Titer [facility] 09/05/2025 2:27 PM EST 09/05/2025 2:27 PM EST us Generic External Data Provider LAB BLOOD ORDERAB LES Final Result [facility] [address], [place] [phone] * (ABNORMAL) CBC auto differential (09/05/2025 2:27 PM EST) Only the most recent of2 resultswithin the time period is included. Pathologist [facility] White Blood Count 6.0 4.8 - 10.8 X10*3/uL [facility] Red Blood Count 5.06 4.60 - 5.80 X10*6/uL [facility] Hemoglobin 14.2 14.0 - 18.0 g/dl [facility] Hematocrit 41.9(L) 42.0 - 52.0 % [facility] Mean Corpuscular Volume 82.8 80.0 - 98.0 fL [facility] Mean Corpuscular Hemoglobin 28.1 27.0 - 33.0 pg [facility] Mean Corpuscular HGB Conc 33.9 31.0 - 36.0 g/dl [facility] Red Cell Distribution Width 13.5 11.0 - 16.0 % [facility] Platelet Count 200 160 - 400 X10*3/uL [facility] Mean Platelet Volume 10.0 9.4 - 12.4 fL [facility] Neutrophils Percent Auto 81.8(H) 45 - 73 % [facility] Imm Gran Pct Auto 0.2 0.0 - 0.4 % [facility] Lymphocytes Percent Auto 9.3(L) 20 - 40 % [facility] Monocytes Percent Auto 6.5 2 - 11 % [facility] Eosinophils Percent Auto 1.7 0 - 4 % [facility] Basophils Percent Auto 0.5 0 - 2 % [facility] NRBC Pct Auto 0.0 0.0 - 0.2 /100WBC [facility] Neutrophils Absolute Auto 4.9 2.0 - 8.3 x10*3/uL [facility] Imm Gran Abs Auto 0.01 0.00 - 0.03 X10*3/uL [facility] Lymphocytes Absolute Auto 0.6(L) 1.2 - 4.9 X10*3/uL [facility] Monocytes Absolute Auto 0.4 0.1 - 1.2 X10*3/uL [facility] Eosinophils Absolute Auto 0.1 0.0 - 0.4 X10*3/uL [facility] Basophils Absolute Auto 0.0 0.0 - 0.2 X10*3/uL [facility] NRBC Abs Auto 0.000 0.0 - 0.012 X10*3/uL [facility] 09/05/2025 2:27 PM EST 09/05/2025 2:27 PM EST Generic External Data Provider LAB BLOOD ORDERAB LES Final Result Performing Organization Address [facility] de Phone Number [facility] [address] [place] [phone] * Glomerular Basement Membrane Antibody (IgG) (09/05/2025 2:27 PM EST) Glomerular Basement Memebrane Antibody (IgG) <1.0 AI [facility] Comment:Value Interpretation ----- <1.0 No Antibody Detected > or = 1.0 Antibody DetectedTHIS TEST WAS PERFORMED AT:[facility] [employer] [facility] [address] [id number] MCINTOSH MD 09/05/2025 2:27 PM EST 09/05/2025 2:27 PM EST Generic External Data Provider LAB BLOOD ORDERAB LES Final Result Performing Organization Address [facility] Phone Number [facility] [address] [place] [phone] * Hepatitis B surface antigen, EIA (09/05/2025 2:27 PM EST) Hepatitis B Surface Ag Negative Negative [facility] 09/05/2025 2:27 PM EST 09/05/2025 2:27 PM EST Generic External Data Provider LAB BLOOD ORDERAB LES Final Result Performing Organization Address [facility] Co in Phone Number [facility] [address] [place] [phone] * Hepatitis B Core Antibody, Total (09/05/2025 2:27 PM EST) Hepatitis B Core Antibody Nonreactive Nonreactive [facility] 09/05/2025 2:27 PM EST 09/05/2025 2:27 PM EST Generic External Data Provider LAB BLOOD ORDERAB LES Final Result Performing Organization Address [facility] Phone Number [facility] [address] [place] [phone] * Hepatitis B Surface Antibody, Qualitative (09/05/2025 2:27 PM EST) Pathologist [facility] ~Hepatitis B Surface Antibody NONREACTIVE Nonreactive [facility] Comment:Nonreactive: < 8.00 mIU/mL 09/05/2025 2:27 PM EST 09/05/2025 2:27 PM EST Generic External Data Provider LAB BLOOD ORDERAB LES Final Result Performing Organization Address [facility] Number [facility] [address] [place] [phone] * Immunofixation, Serum (09/05/2025 2:27 PM EST) Pathologist [facility] IMMUNOGLOBULIN G 889 600 - 1640 mg/dL [facility] IMMUNOGLOBULIN A 292 47 - 310 mg/dL [facility] Immunoglobulin M 111 50 - 300 mg/dL [facility] Comment:THIS TEST WAS PERFOR MED AT:[facility] [employer] [facility] [address] [id number] MCINTOSH MD Immunofixation Result [facility] Comment:No monoclonal protei ns detected 09/05/2025 2:27 PM EST 09/05/2025 2:27 PM EST Generic External Data Provider LAB BLOOD ORDERAB LES Final Result Performing Organization Address [facility] Phone Number [facility] [address] [place] [phone] * RAMESH Screen,IFA, with Reflex to Titer and Pattern (09/05/2025 2:27 PM EST) Anti Nuclear Antibody Screen NEGATIVE NEGATIVE [facility] Comment:RAMESH IFA is a first l ine screen for detecting thepresence of up to approximately 150 autoantibodies invarious autoimmune diseases. A negative RAMESH IFA resultsuggests an RAMESH-associated autoimmune disease is notpresent at this time, but is not definitive. If thereis high clinical suspicion for Sjogren's syndrome,testing for anti-SS-A/Ro antibody should be considered.Anti-More-1 antibody should be considered for clinicallysuspected inflammatory myopathies.AC-0: NegativeInternational Consensus on RAMESH Patterns(https://doi.org/10.1515/hkzi-6996-1655)For additional information, please refer tohttp://education.[employer]/faq/BEO219(This link is being provided for informational/educational purposes only.)THIS TEST WAS PERFORMED AT:[employer] [place] [id number] MCINTOSH MD RAMESH Titer TNP [facility] RAMESH Pattern TNP [facility] RAMESH Titer [facility] RAMESH Pattern 2 [facility] RAMESH TITER 3 [facility] RAMESH PATTERN 3 [facility] 09/05/2025 2:27 PM EST 09/05/2025 2:27 PM EST us Generic External Data Provider LAB BLOOD ORDERAB LES Final Result [facility] [address] [place] [phone] * Protein, Total and Protein??Electrophoresis (09/05/2025 2:27 PM EST) Pathologist [facility] Prot Elec - Total Protein 6.6 6.1 - 8.1 g/dL [facility] Prot Elec - Albumin 3.9 3.8 - 4.8 g/dL [facility] Prot Elec - Alpha1 0.2 0.2 - 0.3 g/dL [facility] Prot Elec - Alpha2 0.9 0.5 - 0.9 g/dL [facility] Prot Elec - Beta 1 0.4 0.4 - 0.6 g/dL [facility] Prot Elec - Beta 2 0.4 0.2 - 0.5 g/dL [facility] Prot Elec - Gamma 0.8 0.8 - 1.7 g/dL [facility] PES - Abn Protein Band 1 TNP [facility] PES-Abn Protein Band 2 TNP [facility] PES-Abn Protein Band 3 [facility] Prot Elec - Interpretation SEE NOTE [facility] Comment:Normal Serum Protein Electrophoresis Pattern.No abnormal protein bands (M-protein) detected.THIS TEST WAS PERFORMED AT:[facility] [place] [id number] MCINTOSH MD 09/05/2025 2:27 PM EST 09/05/2025 2:27 PM EST us Generic External Data Provider LAB BLOOD ORDERAB LES Final Result [facility] [address] [place] [phone] * (ABNORMAL) Comprehensive Metabolic Panel (09/05/2025 2:27 PM EST) Only the most recent of2 resultswithin the time period is included. Sodium 134(L) 135 - 145 mmol/L [facility] Potassium 3.9 3.3 - 5.1 mmol/L [facility] Chloride 96 96 - 108 mmol/L [facility] Carbon Dioxide 27 22 - 29 mmol/L [facility] Anion Gap 15 12 - 20 [facility] Urea Nitrogen (BUN) 24(H) 9 - 16 mg/dL [facility] Creatinine, Serum 1.20 0.5 - 1.4 mg/dL [facility] Estimated Glomerular Filt Rate >60 [facility] Comment:Chronic Kidney Disea se: Estimated GFR < 60 mL/min/[id number] Kidney Disease: Estimated GFR < 15 mL/min/1.73m2 Glucose 634(HH) 60 - 115 mg/dL [facility] Comment:Critical value for G LUCOSE Results called to and read garthy: SOPHIA Person calling: NOEMI Date: 09/05/25 Time: 1516 Calcium 9.3 8.4 - 10.2 mg/dL [facility] Bilirubin, Total 0.5 0.0 - 1.0 mg/dL [facility] Aspartate Amino Transferase 18 5 - 37 U/L [facility] Alanine Aminotransferase 20 0 - 40 U/L [facility] Total Protein 6.8 6.5 - 8.0 g/dL [facility] Albumin Level 4.0 3.5 - 5.0 g/dL [facility] Alkaline Phosphatase 108 39 - 117 U/L [facility] 09/05/2025 2:27 PM EST 09/05/2025 2:27 PM EST us Generic External Data Provider LAB BLOOD ORDERAB LES Final Result Performing Organization Address City/[facility] Co de Phone Number [facility] [address] [place] [phone] * (ABNORMAL) Urine Protein, Total, Random without Creatinine (09/05/2025 2:21 PM EST) Protein, Total, Random Urine 172(H) <12 mg/dL [facility] 09/05/2025 2:21 PM EST 09/05/2025 2:37 PM EST Generic External Data Provider LAB URINE ORDERAB LES Final Result Performing Organization Address City/[facility] Co de Phone Number [facility] [address] [place] [phone] * Creatinine, Random Urine (09/05/2025 2:21 PM EST) Creatinine, Urine 23.89 mg/dL [facility] 09/05/2025 2:21 PM EST 09/05/2025 2:37 PM EST Generic External Data Provider LAB URINE ORDERAB LES Final Result Performing Organization Address [facility] de Phone Number [facility] [address] [place] [phone] * (ABNORMAL) Urinalysis Complete (09/05/2025 2:21 PM EST) Color Urine Yellow [facility] Appearance Urine Clear [facility] PH 6.0 5.0 - 9.0 [facility] Glucose Urine UA >=1000(A) Negative mg/dL [facility] Urine Blood Trace(A) Negative [facility] Specific [place] - Urine >=1.030(H) 1.005 - 1.025 [facility] Urine Protein 300 (3+)(A) Neg-Trace mg/dL [facility] Urine Ketones Negative Negative mg/dL [facility] Nitrite Urine Negative Negative [facility] Leukocyte Esterase Urine Negative Negative [facility] RBC Urine 0-2 0 - 2 /HPF [facility] Urine WBC 0-5 0 - 5 /HPF [facility] Urine Squamous Epithelial Cell 0-2 0 - 2 /HPF [facility] Urine Bacteria None Seen None Seen [facility] Hyaline Casts, Urine 0-2 0 - 2 /LPF [facility] 09/05/2025 2:21 PM EST 09/05/2025 2:37 PM EST Generic External Data Provider LAB URINE ORDERAB LES Final Result Performing Organization Address [facility] Co de Phone Number [facility] [address] [place] [phone] * Vitamin B12/Folate, Serum Panel (07/04/2025 10:07 AM EDT) Vitamin B12 237 200 - 900 pg/mL [facility] Comment:NORMAL 200-900 PG/ML INDETERMINATE 160-199 PG/ML DEFICIENT < 160 PG/ML Folate 9.4 > or = 4.0 ng/mL [facility] Comment:Reference Values:> o r = 4.0 ng/mL< 4.0 ng/mL suggests folate deficiency Methotrexate, aminopterin and folinic acid(leucovorin) are chemotherapeutic agents whose molecularstructures are similar to folate; therefore, the Architectfolate assay cannot be used for patients using these drugs. Blood Venous blood specimen / Unknown 07/04/2025 10:07 AM EDT 07/04/2025 11:47 AM EDT Marilee Cordero [facility] LAB BLOOD ORDERABLES Final Res ult [facility] [address] [place] [phone] * Methylmalonic Acid (07/04/2025 10:07 AM EDT) Methylmalonic Acid 225 55 - 335 nmol/L [facility] Comment: Serum methylmalonic acid (MMA) [...] outcomes,such as neural tube defects and intrauterine growthrestriction.[employer] utilized Multi-Modal Decomposition(MMD) analysis to establish first and second trimester-specific MMA reference intervals in , as givenbelow:MMA, First trimester (<13 wks gestation): 58-167 nmol/LMMA, Second trimester (13-23 wks gestation):63-241 nmol/LThis test was developed and its analytical performancecharacteristics have been determined by [employer]. It has not been cleared or approved by theFDA. This assay has been validated pursuant to the CLIAregulations and is used for clinical purposes.THIS TEST WAS PERFORMED AT:[employer]/[id number] [place] [id number] RANDHAWA MD,PHD Blood Venous blood specimen / Unknown 07/04/2025 10:07 AM EDT 07/04/2025 11:47 AM EDT us Marilee Cordero [facility] LAB BLOOD ORDERABLES Final Res ult Performing Organization Address [facility]/ZIP Co de Phone Number [facility] [address] [place] [phone] * (ABNORMAL) Sed Rate by Modified Leoncioren (07/04/2025 10:07 AM EDT) Erythrocyte Sedimentation Rate 28(H) 0 - 15 MM/HR [facility] Comment:Patients with polycy themia and many hemoglobin abnormalitiesmay have depressed sed rates whereas patients with anemiamay have elevated sed rates. 07/04/2025 10:0 7 AM EDT 07/04/2025 11:47 AM EDT us Generic External Data Provider LAB BLOOD ORDERAB LES Final Result Performing Organization Address [facility]/ZIP Co de Phone Number [facility] [address] [place] [phone] * C-reactive Protein (07/04/2025 10:07 AM EDT) C Reactive Protein 0.10 < or = 0.50 mg/dL [facility] 07/04/2025 10:0 7 AM EDT 07/04/2025 11:47 AM EDT us Generic External Data Provider LAB BLOOD ORDERAB LES Final Result Performing Organization Address City/[facility]/ZIP Co de Phone Number [facility] [address] [place] [phone] * (ABNORMAL) Lipid Panel, Standard (07/04/2025 10:07 AM EDT) Triglycerides 129 <150 mg/dL [facility] Comment:Desirable Triglyceri de: less than 150 mg/dLBorderline High Triglyceride 150-199 mg/dLHigh Triglyceride: 200-499 mg/dLVery High Triglyceride: greater than or equal to 5OO mg/dL Cholesterol 158 <200 mg/dL [facility] Comment:Desirable Cholestero l: less than 200 mg/dLBorderline High Cholesterol: 200-239 mg/dLHigh Cholesterol: greater than 239 mg/dL LDL Cholesterol Calculated 104(H) <100 mg/dL [facility] Comment:Desirable LDL: less than 100 mg/dLNear Optimal/Above Optimal LDL: 110- 129 mg/dLBorderline High LDL: 130-159 mg/dLHigh LDL: 160-189 mg/dLVery High LDL: greater than or equal to 190 mg/dL HDL Cholesterol 29(L) >40 mg/dL [facility] Comment:Desirable HDL: great er than 40 mg/dL Note: This HDL assay may give artificially low results in patients with liver disease. Blood Venous blood specimen / Unknown 07/04/2025 10:07 AM EDT 07/04/2025 11:47 AM EDT us Marilee Cordero HEDDLER TIER LAB BLOOD ORDERABLES Final Res ult [facility] [address] [place] [phone] * (ABNORMAL) POCT A1c (06/26/2025 1:35 PM EDT) Hemoglobin A1C 10.8(A) 4.0 - 5.7 % QC Media Lot # [id number] Lot# Expiration Date Blood 06/26/2025 1:35 PM EDT us Marilee Cordero HEDDLER TIER POINT OF CARE TEST ENTER/EDIT ORDERABLES Final Result * Hepatitis Panel, General (02/26/2025 7:32 AM EDT) Pathologist [facility] Hepatitis A IgM Nonreactive Nonreactive [facility] Comment:IgM antibodies to GIBSON V not detected; does not exclude earlyacute or recovered HAV infection. ~Hepatitis B Surface Antibody NONREACTIVE Nonreactive [facility] Comment:Nonreactive: < 8.00 mIU/mL Hepatitis B Core Antibody Nonreactive Nonreactive [facility] Hepatitis C Antibody Nonreactive Nonreactive [facility] Comment:Antibodies to HCV no t detected; does not exclude early acuteHCV infection. Hepatitis B Surface Ag Negative Negative [facility] 02/26/2025 7:32 AM EDT 02/26/2025 7:32 AM EDT us Generic External Data Provider LAB BLOOD ORDERAB LES Final Result [facility] [address] [place] [phone] * HIV-1/2 Antigen and Antibodies, Fourth Generation, with Reflexes (09/13/2023 7:53 AM EST) Pathologist [facility] HIV AB/AG Nonreactive Nonreactive [facility] Comment:HIV-1 p24 Ag and/or HIV-1/HIV-2 Ab not detected.A test result that is nonreactive does not exclude thepossibility of exposure to or infection with HIV-1 and/orHIV-2. Nonreactive results in this assay for individualswith prior exposure to HIV-1 and/or HIV-2 may be due toantigen and antibody levels that are below the limit ofdetection of this assay.The Mood[employer] HIV Ag/Ab Combo assay result andsupplemental assay results should be interpreted inconjunction with the patient's clinical presentation,history and other laboratory results. If the results areinconsistent with clinical evidence, additional testing issuggested to confirm the result. Blood Venous blood specimen / Unknown 09/13/2023 7:53 AM EST 09/13/2023 7:53 AM EST us Marilee Cordero HEDDLER TIER LAB BLOOD ORDERABLES Final Res ult [facility] [address] [place] [address] [phone] from Last 3 Months or Most Recently Relevant to Health Maintenance Insurance [facility] - HSN PARTIAL (MEDICAID) Care Teams Venture Capitalist Relationship Specialty Start Date End Date Marilee Cordero FNP [address] [place] [address] PCP - General Family Medicine 03/23/23 Cristo Garcia MD [address] [place] [address] [address] [place] [address] Rheumatology 09/01/24 Yoselyn Lyons 180 [place] [address] Ophthalmology 09/01/24 Balbir Don 22 [facility] 301 [place] [address] Sleep Medicine 09/01/24 Lindsay Nur PharmD 230 [place] [address] Pharmacist Pharmacy 05/29/25 Meño Butcher MD [address] [place] [address] 3rd [place] [address] Cardiology 07/06/25 Dr. Ramirez 100 [facility] 200 [place] [address] Nephrology 09/01/24
--- OUTSIDE RECORDS SUMMARY | 2025-09-18 02:10 | XMS_ITS | Encounter Summary ---
Author Organization [employer] Address 75 [facility] 7t [place] [address] Care Team Providers Care Forest Technician Name Role Phone Marilee Cordero SHIPPING SUPPORT Primary Care Provider [phone] Cristo Garcia MD Unavailable Doris Candelario Unavailable [phone] Yoselyn Lyons Unavailable Unavailable Balbir Don Unavailable Lindsay NurD Unavailable [phone] Meño Butcher MD Unavailable [phone] Reason for Visit * Reason Comments Med Refill Encounter Details Date Type Department Care Team (Late st Contact Info) Description 07/23/2023 Refill [facility] MED[facility]INE 230 [place] [address] Donavan Mcgee AGNP Social History Tobacco Use [...] Description 10/02/2025 2:30 PM EST Medication Management [facility] CHC MED & PEDS 505 [place] [address] Lindsay Nur PharmD 230 [place] [address] documented as of this encounter Visit Diagnoses Not on filedocumented in this encounter Additional Health Concerns Assessment Noted Time PHQ-9 Depression Total Score: 1 10/17/20 22 10:05 AM EST documented as of this encounter Care Teams Forest Technician Relationship Specialty Start Date End Date Marilee Cordero FNP 230 [place] [address] PCP - General Family Medicine 03/23/23 Cristo Garcia MD [address] [place] [address] Rheumatology 09/01/24 Doris Candelario [address] [place] [address] Cardiology 09/01/24 07/05/25 Yoselyn Lyons 180 [place] [address] Ophthalmology 09/01/24 Balbir Don 22 [facility] 301 [place] [address] Sleep Medicine 09/01/24 Lindsay Nur, PharmD 230 [place] [address] Pharmacist Pharmacy 05/29/25 Meño Butcher MD [address] [place] [address] 3rd [place] [address] Cardiology 07/06/25 Dr. Ramirez [address] [place] [address] 200 [place] [address] Nephrology 09/01/24 Noman LEWISA 03/18/25 05/04/25 documented as of this encounter
--- OUTSIDE RECORDS SUMMARY | 2025-09-18 02:11 | XMS_ITS | Encounter Summary ---
Author Organization [employer] Address 75 [facility] 7t [place] [address] Care Team Providers Care Summons Server Name Role Phone Marilee Cordero Primary Care Provider [phone] Cristo Garcia MD Unavailable Doris Candelario Unavailable [phone] Yoselyn Lyons Unavailable Unavailable Balbir Don Unavailable Lindsay NurD Unavailable [phone] Meño Butcher MD Unavailable [phone] Reason for Visit * Reason Onset Date Comments Hospital Follow-up 03/17/2025 Encounter Details Date Type Department Care Team (Late st Contact Info) Description 03/17/2025 Telephone [facility] MED[facility]INE [address] [place] [address] Marilee Cordero FNP 505 [place], [place] [phone] Hospital Follow-up Social History Tobacco Use Types [...] from pt requesting a HDF appt. [place] [facility] [place] of admission: 03/11/25 Discharge date: 03/15/25 Diagnosed: Leg pain and goes up to back *Send message to Noman Clinical Care Coordinators documented in this encounter Plan of Treatment Upcoming Encounters Date Type Department Care Team (Late st Contact Info) Description 10/02/2025 2:30 PM EST Medication Management [facility] MED & PEDS [address] [place] [address] Lindsay Nur, PharmD 230 [place] [address] documented as of this encounter Visit Diagnoses Not on filedocumented in this encounter Additional Health Concerns Assessment Noted Time PHQ-9 Depression Total Score: 13 025 8:59 AM EDT documented as of this encounter Care Teams Summons Server Relationship Specialty Start Date End Date Marilee Cordero FNP [address] [place] [address] PCP - General Family Medicine 03/23/23 Cristo Garcia MD [address] [place] [address] 402 [place] [address] Rheumatology 09/01/24 Doris Candelario [address] [place] [address] Cardiology 09/01/24 07/05/25 Yosleyn Lyons 180 [place] [address] Ophthalmology 09/01/24 Balbir Don 22 [facility] 301 [place] [address] Sleep Medicine 09/01/24 Lindsay Nur PharmD 230 [place] [address] Pharmacist Pharmacy 05/29/25 Meño Butcher MD [address] [place] [address] 3rd [place] [address] Cardiology 07/06/25 Dr. Rmairez 100 [facility] 200 [place] [address] Nephrology 09/01/24 [facility] 03/18/25 05/04/25 documented as of this encounter
--- OUTSIDE RECORDS SUMMARY | 2025-09-18 02:11 | XMS_ITS | Encounter Summary ---
Author Organization [employer] Address [address] [place] [address] 7t [place] [address] Care Team Providers Care Ssrs Developer Name Role Phone Marilee Cordero Primary Care Provider [phone] Cristo Garcia MD Unavailable Doris Candelario Unavailable [phone] Yoselyn Lyons Unavailable Unavailable Balbir Don Unavailable Lindsay Nur PharmD Unavailable [phone] Meño Butcher MD Unavailable [phone] Reason for Referral * Consultation (Routine) - Closed Specialty Diagnoses / Procedures Referred By Contzena t Referred To Contact Nephrology Diagnoses Albuminuria Marilee Cordero FNP [address] [place] [address] Phone: tel: fax: Bayron Marshall MD 100 [facility] 200 [place] [address] Phone: tel: fax: Referral ID Status Reason Start Date Expiration Date V isits Requested Visits Authorized [id number] Closed Specialty Services Required 12/29/2023 12/28/2024 1 1 Encounter Details Date Type Department Care Team (Late st Contact Info) Description 12/29/2023 Orders Only [facility] CHC MED & PEDS 505 [place], [place] [phone] Marilee Cordero FNP 505 [place], [place] [phone] Albuminuria (Primary Dx) Social History Tobacco Use [...] Description 10/02/2025 2:30 PM EST Medication Management [facility] CH[facility] MED & PEDS [address] [place] [address] Lindsay Nur, PharmD 230 [place] [address] documented as of this encounter Procedures Procedure [...] documented as of this encounter Care Teams Ssrs Developer Relationship Specialty Start Date End Date Marilee Cordero FNP [address] [place] [address] PCP - General Family Medicine 03/23/23 Cristo Garcia MD [address] [place] [address] Rheumatology 09/01/24 Doris Candelario [address] [place] [address] Cardiology 09/01/24 07/05/25 Yoselyn Lyons 180 [place] [address] Ophthalmology 09/01/24 Balbir Don 22 [facility] 301 [place] [address] Sleep Medicine 09/01/24 Lindsay Nur PharmD 230 [place] [address] Pharmacist Pharmacy 05/29/25 Meño Butcher MD [address] [place] [address] 3rd [place] [address] Cardiology 07/06/25 Dr. Ramirez 100 [facility] 200 [place] [address] Nephrology 09/01/24 Noman LAWRENCE 03/18/25 05/04/25 documented as of this encounter
--- OUTSIDE RECORDS SUMMARY | 2025-09-18 02:15 | XMS_ITS | Clinical Summary ---
Author Organization [facility] Address [address] [address] Phone Care Team Providers Care Marine Pipefitter Helper Name Role Phone Marilee Cordero BRANDEN Primary Care Provider [phone] Allergies No known active allergies Medications amLODIPine [...] Hospitalization for CHF exacerbation: Oct 2023 at [facility] Last Assessment & Plan: [...] Psoriatic arthritis 06/04/2012 Overview (03/26/2025): Followed by [facility] - Dr. Garcia Med therapy: DMARD, Derik Previous tx: methotrexate and Enbrel (hx of failed Humira tx in Rheum note 02/04/21). Plan to hold methotrexate with hx cardiac conditions Obstructive sleep apnea syndrome 06/04/2012 Overview (03/26/2025): Following with [facility] - Dr. Balbir Don Cont [...] to 49 Years) Discontinued 06/28/2018, 09/30/2008 Insurance [employer] [facility] ([id number]) [employer] [facility] ([id number]) Care Teams Marine Pipefitter Helper Relationship Specialty Start Date End Date Marilee Cordero FNP 230 [place] [address] PCP - General 01/08/24
== END 2025-09-17 14:22 | disposition home or self-care (01) ==
LOC: HO.HPS 13:58
PROVIDERS: PCP Registered Nurse; Visit Provider Internal Medicine
DX: G47.34 Idiopathic sleep related nonobstructive alveolar hypoventilation (principal); I27.20 Pulmonary hypertension, unspecified
CPT/HCPCS: 99213

== ENCOUNTER → 2025-09-17 13:58 | Outpatient (BNVA) | payer OTHER, SELFPAY | PROVIDERS: PCP Registered Nurse; Visit Provider Internal Medicine | DX: G47.34 Idiopathic sleep related nonobstructive alveolar hypoventilation (principal); I27.20 Pulmonary hypertension, unspecified | CPT/HCPCS: 99212 ==

== ENCOUNTER 2025-09-23 08:17 | Outpatient (REF) | payer OTHER, SELFPAY ==
--- OUTSIDE RECORDS SUMMARY | 2018-07-03 08:45 | XMS_ITS | Continuity of Care Document ---
Author Organization [facility] vices Address [address] [place] [address] Phone Care Team Providers Care Religious Educator Name Role Phone Unavailable Unavailable Unavailable Procedures Procedure Date Psychotherapy, 30 Minutes With Patient S Psych Dx Eval Psychotherapy, 30 Minutes With Patient A Advance Directives Directive Yes / No Effective Date File Name No Information Encounters Encounter Description Practice Location Reason(s) For Visit Diagnoses Date Provider Providers Copied on Encounter Psychotherap y, 30 Minutes With Patient [facility], [address] [place] [address], tel:[phone] [facility] Behavioral Health Individual Therapy (chief complaint) Cannabis use, unspecified, uncomplicatedC ocaine use, unspecified, uncomplicatedM ajor depressive disorder, recurrent, mildPost-traum atic stress disorder, unspecified Sep-0 8 No Information Psych Dx Eval [facility], [address] [place] [address], [facility], tel:[phone] [facility] Behavioral Health Initial Assessment (chief complaint) Major depressive disorder, recurrent, mildPost-traum atic stress disorder, unspecifiedCoc norman use, unspecified, uncomplicatedC annabis use, unspecified, uncomplicated May- 8 No Information Psychotherap y, 30 Minutes With Patient [facility], [address] [place] [address], tel:[phone] [facility] Behavioral Health depression (chief complaint) Major depressive disorder, recurrent, mildPost-traum atic stress disorder, unspecified May-2 8 No Information Family History Family Member Type Diagnosis Age At Onset No Information Payers Payer name Insurance type Covered alliance party ID Authoriza tiluiz(s) BRII Alonso [id number] Social History Type Description Quantity Date Captured [...]
--- NOTE | ~2025-09-23 | US_ITS ---
CLINICAL HISTORY: R31.9 - Hematuria, unspecified US of kidneys Comparison: None provided Findings: Right kidney is normal in size, echogenicity and morphology, 13.0 cm in length. No calculus, mass or hydronephrosis. Left kidney is normal in size, echogenicity and morphology, 14.0 cm in length. Mildly lobulated hypoechoic solid structure at the interpolar cortex, slightly hyperechoic to adjacent normal cortex, 3.8 x 2.5 x 2.2 cm, no posterior acoustic features, color Doppler demonstrates internal vascular flow. No calculus or hydronephrosis. Limited color Doppler demonstrates unremarkable bilateral blood flow. Impression: Probable left renal solid mass, malignancy needs to be excluded, recommend renal CT or MRI without and with IV contrast. This document has been electronically signed by: Jerri Zamora MD on 09/23/2025 15:19:29
--- OUTSIDE RECORDS SUMMARY | 2025-09-23 08:32 | XMS_ITS | Encounter Summary ---
Author Organization [employer] Address 75 [facility] 7t [place] [address] Care Team Providers Care Blower Feeder Dyed Raw Stock Name Role Phone Marilee Cordero STEAM LOCOMOTIVE FIRER/FIREMAN Primary Care Provider Cristo Garcia MD Unavailable Doris Candelario Unavailable [phone] Yoselyn Lyons Unavailable Unavailable Balbir Don Unavailable Lindsay NurD Unavailable [phone] Meño Butcher MD Unavailable [phone] Encounter Details Date Type Department Care Team (Late st Contact Info) Description 08/11/2023 Abstract [facility]AL [address] [place], [place] [phone] Gavino Lacey, DIANA [address] [place], [place] [phone] Social History Tobacco Use Types Packs/Day Years [...] 10/02/2025 2:30 PM EST Medication Management [facility] MED [facility] PEDS [address] [place] [address] Lindsay Nur, PharmD 230 [place] [address] documented as of this encounter Visit Diagnoses Not on filedocumented in this encounter Additional Health Concerns Assessment Noted Time PHQ-9 Depression Total Score: 1 10/17/20 22 10:05 AM EST documented as of this encounter Care Teams Blower Feeder Dyed Raw Stock Relationship Specialty Start Date End Date Marilee Cordero FNP [address] [place] [address] PCP - General Family Medicine 03/23/23 Cristo Garcia MD [address] [place] [address] [place] [address] Rheumatology 09/01/24 Doris Candelario [address] [place] [address] Cardiology 09/01/24 07/05/25 Yoselyn Lyons 180 [place] [address] Ophthalmology 09/01/24 Balbir Don 22 [facility] 301 [place] [address] Sleep Medicine 09/01/24 Lindsay Nur PharmD 230 [place] [address] Pharmacist Pharmacy 05/29/25 Meño Butcher MD 11 [facility] 3rd [place] [address] Cardiology 07/06/25 Dr. Ramirez 100 [facility] 200 [place] [address] Nephrology 09/01/24 [facility] 03/18/25 05/04/25 documented as of this encounter
--- OUTSIDE RECORDS SUMMARY | 2025-09-23 08:33 | XMS_ITS | Encounter Summary ---
Author Organization [employer] Address [address] [facility] 7t [place] [address] Care Team Providers Care Portfolio Lead Name Role Phone Marilee Cordero Primary Care Provider [phone] Cristo Garcia MD Unavailable Doris Candelario Unavailable [phone] Yoselyn Lyons Unavailable Unavailable Balbir Don Unavailable Lindsay NurD Unavailable [phone] Meño Butcher MD Unavailable Reason for Visit * Reason Onset Date Comments Hospital Follow-up 03/17/2025 Encounter Details Date Type Department Care Team (Late st Contact Info) Description 03/17/2025 Telephone [facility] MEDICINE 230 [place] [address] Marilee Cordero FNP 505 [place], [place] [phone] Hospital Follow-up Social History Tobacco Use Types [...] from pt requesting a HDF appt. [place] [facility] [place] of admission: 03/11/25 Discharge date: 03/15/25 Diagnosed: Leg pain and goes up to back *Send message to Noman Clinical Care Coordinators documented in this encounter Plan of Treatment Upcoming Encounters Date Type Department Care Team (Late st Contact Info) Description 10/02/2025 2:30 PM EST Medication Management [facility] CHC MED & PEDS [address] [place] [address] Lindsay Nur, PharmD 230 [place] [address] documented as of this encounter Visit Diagnoses Not on filedocumented in this encounter Additional Health Concerns Assessment Noted Time PHQ-9 Depression Total Score: 13 025 8:59 AM EDT documented as of this encounter Care Teams Portfolio Lead Relationship Specialty Start Date End Date Marilee Cordero FNP [address] [place] [address] PCP - General Family Medicine 03/23/23 Cristo Garcia MD [address] [place] [address] [address] [place] [address] Rheumatology 09/01/24 Doris Candelario [address] [place] [address] Cardiology 09/01/24 07/05/25 Yoselyn Lyons 180 [place] [address] Ophthalmology 09/01/24 Balbir Don 22 [facility] 301 [place] [address] Sleep Medicine 09/01/24 Lindsay Nur PharmD 230 [place] [address] Pharmacist Pharmacy 05/29/25 Meño Butcher MD [address] [place] [address] 3rd [place] [address] Cardiology 07/06/25 Dr. Ramirez 100 [facility] 200 [place] [address] Nephrology 09/01/24 [facility] 03/18/25 05/04/25 documented as of this encounter
--- OUTSIDE RECORDS SUMMARY | 2025-09-23 08:33 | XMS_ITS | Clinical Summary ---
Author Organization [employer] Address [address] [facility] [address] [place] [address] Care Team Providers Care Cylinder Devalver Name Role Phone Marilee Cordero BRANDEN Primary Care Provider [phone] Cristo Garcia MD Unavailable Yoselyn Lyons Unavailable Unavailable Balbir Don Unavailable Lindsay Nur PharmD Unavailable Meño Butcher MD Unavailable [phone] Allergies No known active allergies Medications Blood Pressure kit Use daily Active Blood Glucose Monitoring Suppl (FreeStyle [place] Lite) w/Device kit 1 each by Other [...] hyperglycemia, with long-term current use of insulin ([facility]) Inject 3 mg under the skin 1 (one) time per week. 2 mL 2 09/05/20 25 Active metFORMIN XR (Glucophage-XR ) 500 MG 24 hr tabletIndicati ons:Type 2 diabetes mellitus with hyperglycemia, with long-term current use of insulin ([facility]) TAKE 1 TABLET BY MOUTH TWICE DAILY IN THE MORNING AND IN THE EVENING WITH MEALS 180 tablet 1 09/05/20 25 Active insulin glargine (Lantus SoloStar) 100 UNIT/ML penIndications :Type 2 diabetes mellitus with hyperglycemia, with long-term current use of insulin ([facility]) Inject 20 Units under the skin at [...] hyperglycemia, with long-term current use of insulin ([facility]) TAKE 1 TABLET BY MOUTH [...] Date Hematuria 04/29/2025 Overview (07/06/2025): Following with [facility] - Dr. Cramer Assessment & Plan [...] UA, confirmed with send out Following with [facility] Diabetic polyneuropathy asso ciated with type [...] Followed by [facility] - Dr. James Hogan 10mg daily Psoriatic arthritis ([facility]/HCC) 08/30/2024 Overview (04/01/2025): Followed by [facility] Rheum - Dr. Garcia Med therapy: DMARD [...] (07/06/2025): Previously following with [facility], established with [facility] - Dr. Butcher April: Nuclear stress test: [...] Hospitalization for CHF exacerbation: Oct 2023 at [facility] - Reviewed condition and concerning signs/symptoms Pharmacotherapy: Aspirin 81mg daily Atorvastatin 40mg nightly Furosemide 40mg BID (RX nephrology) Spironolactone 25mg daily (RX cards) Jardiance 25mg daily Carvedilol 6.25mg BID Entresto 24-26mg BID Assessment & Plan (04/01/2025 7:07 PM EDT): Follow-up with [facility] as scheduled in April 2025. Reports they are already on wait list in case anything sooner becomes available. Assessment & Plan (01/27/2025 9:50 AM EDT): Cont current therapy, symptomatic SOB/BELL Referral to [facility] for further eval Assessment & Plan [...] following with renal for proteinuria -Established with [facility] Assessment & Plan (04/01/2025 7:01 PM EDT): - Initial BG reading [facility]. Repeat value HH s/p 10 units lispro. Re-check #3 resulted 436 s/p second dose of 10 units insulin lispro. Pt unable to void for UA. Discussed ED precautions. - Previous rx of Jardiance 10mg daily (rx through [employer] - unclear if currently taking) - No [...] tx in Rheum note 02/04/21) -Re-established with [facility] Rheum Nov 2021, last consult appt December 2023 Plan to hold methotrexate with hx cardiac conditions Taltz injections through Rheum with notable improvement Assessment & Plan (03/03/2024 2:42 PM EDT): -Previous tx with methotrexate and Enbrel (hx of failed Humira tx in Rheum note 02/04/21) -Re-established with [facility] Rheum Nov 2021, last consult appt December 2023 Plan to hold methotrexate with hx cardiac conditions Authorization for Taltz is pending Assessment & Plan (08/11/2023 1:16 PM EDT): -Previous tx with methotrexate and Enbrel (hx of failed Humira tx in Rheum note 02/04/21) -Re-established with [facility] Rheum Nov 2021 Says may have re-started on methotrexate but unsure. Will bring med list to next appt. -Pt was also referred to [facility] Derm Team, appt pending Assessment & Plan (04/12/2023 1:37 PM EDT): -Previous tx with methotrexate and Enbrel (hx of failed Humira tx in Rheum note 02/04/21) -Re-established with [facility] Rheum Nov 2021 Says may have re-started on methotrexate but unsure. Will bring med list to next appt. -Pt was also referred to [facility] Derm Team, appt pending Assessment & Plan (10/20/2022 9:18 AM EST): -Previous tx with methotrexate and Enbrel (hx of failed Humira tx in Rheum note 02/04/21) -Reports has not been taking any meddications for psoriasis in > 6 month, interested in re-establishing with specialists -Upcoming appt with [facility] Rheum Nov 2021 -Pt was also referred to [facility] Derm Team, appt pending Hypertension 06/13/2012 [...] reporting intermittent discomfort with mask Referral to [facility] Sleep Medicine for further eval and management Resolved Problems Problem Noted Date Diagnosed Date Resolved Date Retention of urine 02/26/2015 3 Elevated levels of transamin ase & lactic acid dehydrogenase 08/14/2012 10/20/2022 Encounters Date Type Department Care Team Description 09/05/2025 Orders Only GENERIC EXTERNAL DATA DEPARTMENT Provider, Generic External Data 09/05/2025 Telephone [facility] [address] [place] [address] Lindsay Nur, PharmD 09/05/2025 Travel 09/01/2025 Telephone [facility] [address] [place] [address] Marilee Cordero FNP 09/01/2025 Travel 08/26/2025 Telephone [facility] [address] [place] [address] Marilee Cordero FNP Transition Of Care (Tcm) 08/25/2025 Orders Only [facility] [address] [place] [address] Jamaica Roman MD Diabetic macular edema (HCC) (Primary Dx); Primary hypertension 08/20/2025 Telephone [facility] [address] [place] [address] Lindsay Nur PharmD 07/08/2025 Results Follow-Up [facility] [address] [place] [address] Marilee Cordero FNP Lipid Panel, Standard, Vitamin B12/Folate, Serum Panel, Methylmalonic Acid 07/04/2025 8:30 AM EDT Office Visit [facility] [address] [place] [address] Marilee Cordero FNP Type 2 diabetes mellitus [...] Data 07/04/2025 Travel 07/03/2025 Telephone [facility] [address] [place] [address] Marilee Cordero FNP chart prep 06/26/2025 Travel [...] PM EST Medication Management [facility] [address] [place], [place] [phone] Lindsay Nur, PharmD [address], [place] [phone] Health Maintenance Due Date Last Done Comments [...] ANCA Titer (09/05/2025 2:27 PM EST) Pathologist [facility] ANCA Screen NEGATIVE NEGATIVE [facility] Comment:ANCA screen uses ind irect immunofluorescence to detectantibodies to neutrophil cytoplasmic antigens. Apositive screen reflexes to titer and pattern. Patternsinclude cytoplasmic (c-ANCA) and perinuclear (p-ANCA)both of which are associated with vasculitis, andatypical p-ANCA which is associated with inflammatorybowel disease and other disorders.THIS TEST WAS PERFORMED AT:[facility] [address] [id number] MCINTOSH MD P-ANCA Titer [facility] Atypical P-ANCA Titer [facility] C-ANCA Titer [facility] 09/05/2025 2:27 PM EST 09/05/2025 2:27 PM EST us Generic External Data Provider LAB BLOOD ORDERAB LES Final Result [facility] [address] [place], [place] [phone] * (ABNORMAL) CBC auto differential (09/05/2025 2:27 PM EST) Only the most recent of2 resultswithin the time period is included. Pathologist [facility] White Blood Count 6.0 4.8 - 10.8 X10*3/uL [facility] Red Blood Count 5.06 4.60 - 5.80 X10*6/uL [facility] Hemoglobin 14.2 14.0 - 18.0 g/dl [facility] Hematocrit 41.9(L) 42.0 - 52.0 % [facility] Mean Corpuscular Volume 82.8 80.0 - 98.0 fL [facility] Mean Corpuscular Hemoglobin 28.1 27.0 - 33.0 pg [facility] Mean Corpuscular HGB Conc 33.9 31.0 - 36.0 g/dl [facility] Red Cell Distribution Width 13.5 11.0 - 16.0 % [facility] Platelet Count 200 160 - 400 X10*3/uL [facility] Mean Platelet Volume 10.0 9.4 - 12.4 fL [facility] Neutrophils Percent Auto 81.8(H) 45 - 73 % [facility] Imm Gran Pct Auto 0.2 0.0 - 0.4 % [facility] Lymphocytes Percent Auto 9.3(L) 20 - 40 % [facility] Monocytes Percent Auto 6.5 2 - 11 % [facility] Eosinophils Percent Auto 1.7 0 - 4 % [facility] Basophils Percent Auto 0.5 0 - 2 % [facility] NRBC Pct Auto 0.0 0.0 - 0.2 /100WBC [facility] Neutrophils Absolute Auto 4.9 2.0 - 8.3 x10*3/uL [facility] Imm Gran Abs Auto 0.01 0.00 - 0.03 X10*3/uL [facility] Lymphocytes Absolute Auto 0.6(L) 1.2 - 4.9 X10*3/uL [facility] Monocytes Absolute Auto 0.4 0.1 - 1.2 X10*3/uL [facility] Eosinophils Absolute Auto 0.1 0.0 - 0.4 X10*3/uL [facility] Basophils Absolute Auto 0.0 0.0 - 0.2 X10*3/uL [facility] NRBC Abs Auto 0.000 0.0 - 0.012 X10*3/uL [facility] 09/05/2025 2:27 PM EST 09/05/2025 2:27 PM EST Generic External Data Provider LAB BLOOD ORDERAB LES Final Result Performing Organization Address [facility] de Phone Number [facility] [address] [place] [phone] * Glomerular Basement Membrane Antibody (IgG) (09/05/2025 2:27 PM EST) Glomerular Basement Memebrane Antibody (IgG) <1.0 AI [facility] Comment:Value Interpretation ----- <1.0 No Antibody Detected > or = 1.0 Antibody DetectedTHIS TEST WAS PERFORMED AT:[facility] [address] [id number] MCINTOSH MD 09/05/2025 2:27 PM EST 09/05/2025 2:27 PM EST Generic External Data Provider LAB BLOOD ORDERAB LES Final Result Performing Organization Address [facility] Phone Number [facility] [address] [place] [phone] * Hepatitis B surface antigen, EIA (09/05/2025 2:27 PM EST) Hepatitis B Surface Ag Negative Negative [facility] 09/05/2025 2:27 PM EST 09/05/2025 2:27 PM EST Generic External Data Provider LAB BLOOD ORDERAB LES Final Result Performing Organization Address [facility] Co tx Phone Number [facility] [address] [place] [phone] * Hepatitis B Core Antibody, Total (09/05/2025 2:27 PM EST) Hepatitis B Core Antibody Nonreactive Nonreactive [facility] 09/05/2025 2:27 PM EST 09/05/2025 2:27 PM EST Generic External Data Provider LAB BLOOD ORDERAB LES Final Result Performing Organization Address [facility] Phone Number [facility] [address] [place] [phone] * Hepatitis B Surface Antibody, Qualitative (09/05/2025 2:27 PM EST) Pathologist [facility] ~Hepatitis B Surface Antibody NONREACTIVE Nonreactive [facility] Comment:Nonreactive: < 8.00 mIU/mL 09/05/2025 2:27 PM EST 09/05/2025 2:27 PM EST Generic External Data Provider LAB BLOOD ORDERAB LES Final Result Performing Organization Address [facility] Number [facility] [address] [place] [phone] * Immunofixation, Serum (09/05/2025 2:27 PM EST) Pathologist [facility] IMMUNOGLOBULIN G 889 600 - 1640 mg/dL [facility] IMMUNOGLOBULIN A 292 47 - 310 mg/dL [facility] Immunoglobulin M 111 50 - 300 mg/dL [facility] Comment:THIS TEST WAS PERFOR MED AT:[facility] [address] [phone] MCINTOSH MD Immunofixation Result [facility] Comment:No monoclonal protei ns detected 09/05/2025 2:27 PM EST 09/05/2025 2:27 PM EST Generic External Data Provider LAB BLOOD ORDERAB LES Final Result Performing Organization Address [facility] Phone Number [facility] [address] [place] [phone] * RAMESH Screen,IFA, with Reflex to Titer and Pattern (09/05/2025 2:27 PM EST) Anti Nuclear Antibody Screen NEGATIVE NEGATIVE [facility] Comment:RAMESH IFA is a first [...] clinicallysuspected inflammatory myopathies.AC-0: NegativeInternational Consensus on RAMESH Patterns(https://doi.org/10.1515/mgoe-3892-3175)For additional information, please refer tohttp://education.Open CS/faq/WEF256(This link is being provided for informational/educational purposes only.)THIS TEST WAS PERFORMED AT:[employer] [place] [id number] MCINTOSH MD RAMESH Titer TNP [facility] RAMESH Pattern TNP [facility] Pattern 2 [facility] RAMESH TITER 3 [facility] RAMESH PATTERN 3 [facility] 09/05/2025 2:27 PM EST 09/05/2025 2:27 PM EST us Generic External Data Provider LAB BLOOD ORDERAB LES Final Result [facility] [address] [place] [phone] [phone] * Protein, Total and Protein??Electrophoresis (09/05/2025 2:27 PM EST) Pathologist [facility] Prot Elec - Total Protein 6.6 6.1 - 8.1 g/dL [facility] Prot Elec - Albumin 3.9 3.8 - 4.8 g/dL [facility] Prot Elec - Alpha1 0.2 0.2 - 0.3 g/dL [facility] Prot Elec - Alpha2 0.9 0.5 - 0.9 g/dL [facility] Prot Elec - Beta 1 0.4 0.4 - 0.6 g/dL [facility] Prot Elec - Beta 2 0.4 0.2 - 0.5 g/dL [facility] Prot Elec - Gamma 0.8 0.8 - 1.7 g/dL [facility] PES - Abn Protein Band 1 TNP [facility] PES-Abn Protein Band 2 TNP [facility] PES-Abn Protein Band 3 [facility] Prot Elec - Interpretation SEE NOTE [facility] Comment:Normal Serum Protein Electrophoresis Pattern.No abnormal protein bands (M-protein) detected.THIS TEST WAS PERFORMED AT:[employer] [place] [id number] MCINTOSH MD 09/05/2025 2:27 PM EST 09/05/2025 2:27 PM EST us Generic External Data Provider LAB BLOOD ORDERAB LES Final Result [facility] [address] [place] [phone] * (ABNORMAL) Comprehensive Metabolic Panel (09/05/2025 2:27 PM EST) Only the most recent of2 resultswithin the time period is included. Sodium 134(L) 135 - 145 mmol/L [facility] Potassium 3.9 3.3 - 5.1 mmol/L [facility] Chloride 96 96 - 108 mmol/L [facility] Carbon Dioxide 27 22 - 29 mmol/L [facility] Anion Gap 15 12 - 20 [facility] Urea Nitrogen (BUN) 24(H) 9 - 16 mg/dL [facility] Creatinine, Serum 1.20 0.5 - 1.4 mg/dL [facility] Estimated Glomerular Filt Rate >60 [facility] Comment:Chronic Kidney Disea se: Estimated GFR < 60 mL/min/1.82q9Zthtwv Kidney Disease: Estimated GFR < 15 mL/min/1.73m2 Glucose 634(HH) 60 - 115 mg/dL [facility] Comment:Critical value for G LUCOSE Results called to and read garthy: SOPHIA Person calling: NOEMI Date: 09/05/25 Time: 1516 Calcium 9.3 8.4 - 10.2 mg/dL [facility] Bilirubin, Total 0.5 0.0 - 1.0 mg/dL [facility] Aspartate Amino Transferase 18 5 - 37 U/L [facility] Alanine Aminotransferase 20 0 - 40 U/L [facility] Total Protein 6.8 6.5 - 8.0 g/dL [facility] Albumin Level 4.0 3.5 - 5.0 g/dL [facility] Alkaline Phosphatase 108 39 - 117 U/L [facility] 09/05/2025 2:27 PM EST 09/05/2025 2:27 PM EST us Generic External Data Provider LAB BLOOD ORDERAB LES Final Result Performing Organization Address City/[facility] Co de Phone Number [facility] [address] [place] [phone] * (ABNORMAL) Urine Protein, Total, Random without Creatinine (09/05/2025 2:21 PM EST) Protein, Total, Random Urine 172(H) <12 mg/dL [facility] 09/05/2025 2:21 PM EST 09/05/2025 2:37 PM EST Generic External Data Provider LAB URINE ORDERAB LES Final Result Performing Organization Address City/[facility] Co de Phone Number [facility] [address] [place] [phone] * Creatinine, Random Urine (09/05/2025 2:21 PM EST) Creatinine, Urine 23.89 mg/dL [facility] 09/05/2025 2:21 PM EST 09/05/2025 2:37 PM EST Generic External Data Provider LAB URINE ORDERAB LES Final Result Performing Organization Address [facility] de Phone Number [facility] [address] [place] [phone] [phone] * (ABNORMAL) Urinalysis Complete (09/05/2025 2:21 PM EST) Color Urine Yellow [facility] Appearance Urine Clear [facility] PH 6.0 5.0 - 9.0 [facility] Glucose Urine UA >=1000(A) Negative mg/dL [facility] Urine Blood Trace(A) Negative [facility] Specific [place] - Urine >=1.030(H) 1.005 - 1.025 [facility] Urine Protein 300 (3+)(A) Neg-Trace mg/dL [facility] Urine Ketones Negative Negative mg/dL [facility] Nitrite Urine Negative Negative [facility] Leukocyte Esterase Urine Negative Negative [facility] RBC Urine 0-2 0 - 2 /HPF [facility] Urine WBC 0-5 0 - 5 /HPF [facility] Urine Squamous Epithelial Cell 0-2 0 - 2 /HPF [facility] Urine Bacteria None Seen None Seen [facility] Hyaline Casts, Urine 0-2 0 - 2 /LPF [facility] 09/05/2025 2:21 PM EST 09/05/2025 2:37 PM EST Generic External Data Provider LAB URINE ORDERAB LES Final Result Performing Organization Address [facility] Co de Phone Number [facility] [address] [place] [phone] * Vitamin B12/Folate, Serum Panel (07/04/2025 [...] EDT 07/04/2025 11:47 AM EDT Marilee Cordero [facility] LAB BLOOD ORDERABLES Final Res ult [facility] [address] [place] [phone] * Methylmalonic Acid (07/04/2025 10:07 AM [...] outcomes,such as neural tube defects and intrauterine growthrestriction.[employer] utilized Multi-Modal Decomposition(MMD) analysis to establish first and second trimester-specific MMA reference intervals in , as givenbelow:MMA, First trimester (<13 wks gestation): 58-167 nmol/LMMA, Second trimester (13-23 wks gestation):63-241 nmol/LThis test was developed and its analytical performancecharacteristics have been determined by [employer]. It has not been cleared or approved by theFDA. This assay has been validated pursuant to the CLIAregulations and is used for clinical purposes.THIS TEST WAS PERFORMED AT:[id number] [place] [address]FUBETQUEDWIN RANDHAWA MD,PHD Blood Venous blood specimen / Unknown 07/04/2025 10:07 AM EDT 07/04/2025 11:47 AM EDT us Marilee Cordero [employer] LAB BLOOD ORDERABLES Final Res ult Performing Organization Address [facility]/ZIP Co de Phone Number [facility] [address] [place] [phone] * (ABNORMAL) Sed Rate by Modified [...] ORDERAB LES Final Result Performing Organization Address [facility]/ZIP Co de Phone Number [facility] [address] [place] [phone] * C-reactive Protein (07/04/2025 10:07 AM EDT) C Reactive Protein 0.10 < or = 0.50 mg/dL [facility] 07/04/2025 10:0 7 AM EDT 07/04/2025 11:47 AM EDT us Generic External Data Provider LAB BLOOD ORDERAB LES Final Result Performing Organization Address City/[facility]/ZIP Co de Phone Number [facility] [address] [place] [phone] * (ABNORMAL) Lipid Panel, Standard (07/04/2025 10:07 AM EDT) Triglycerides 129 <150 mg/dL [facility] Comment:Desirable Triglyceri de: less than [...] 190 mg/dL HDL Cholesterol 29(L) >40 mg/dL [facility] Comment:Desirable HDL: great er than 40 mg/dL Note: This HDL assay may give artificially low results in patients with liver disease. Blood Venous blood specimen / Unknown 07/04/2025 10:07 AM EDT 07/04/2025 11:47 AM EDT us Marilee Cordero [employer] LAB BLOOD ORDERABLES Final Res ult [facility] [address] [place] [phone] * (ABNORMAL) POCT A1c (06/26/2025 1:35 PM EDT) Hemoglobin A1C 10.8(A) 4.0 - 5.7 % QC Media Lot # [id number] Lot# Expiration Date Blood 06/26/2025 1:35 PM EDT us Marilee Cordero [employer] POINT OF CARE TEST ENTER/EDIT ORDERABLES Final Result * Hepatitis Panel, General (02/26/2025 7:32 AM EDT) Pathologist [facility] Hepatitis A IgM Nonreactive Nonreactive [facility] ORDERAB LES Final Result [facility] [address] [place] [address] [phone] * HIV-1/2 Antigen and Antibodies, Fourth Generation, with Reflexes (09/13/2023 7:53 AM EST) Pathologist [facility] HIV AB/AG Nonreactive Nonreactive [facility] Comment:HIV-1 p24 Ag and/or HIV-1/HIV-2 Ab not detected.A test result that is nonreactive does not exclude thepossibility of exposure to or infection with HIV-1 and/orHIV-2. Nonreactive results in this assay for individualswith prior exposure to HIV-1 and/or HIV-2 may be due toantigen and antibody levels that are below the limit ofdetection of this assay.The [employer] HIV Ag/Ab Combo assay result andsupplemental assay results should be interpreted inconjunction with the patient's clinical presentation,history and other laboratory results. If the results areinconsistent with clinical evidence, additional testing issuggested to confirm the result. Blood Venous blood specimen / Unknown 09/13/2023 7:53 AM EST 09/13/2023 7:53 AM EST us Marilee Cordero [employer] LAB BLOOD ORDERABLES Final Res ult [facility] [address] [place] [phone] from Last 3 Months or Most Recently Relevant to Health Maintenance Insurance [facility] - HSN PARTIAL (MEDICAID) Care Teams Cylinder Devalver Relationship Specialty Start Date End Date Marilee Cordero FNP [address] [place] [address] PCP - General Family Medicine 03/23/23 Cristo Garcia MD [address] [place] [address] [address] [place] [address] Rheumatology 09/01/24 Yoselyn Lyons [address] [place] [address] Ophthalmology 09/01/24 Balbir Don [address] [facility] [address] [place] [address] Sleep Medicine 09/01/24 Lindsay Nur PharmD [address] [place] [address] Pharmacist Pharmacy 05/29/25 Meño Butcher MD [address] [place] [address] 3[address] [place] [address] Cardiology 07/06/25 Dr. Ramirez [address] [facility] [address] [place] [phone] Nephrology 09/01/24
--- OUTSIDE RECORDS SUMMARY | 2025-09-23 08:33 | XMS_ITS | Encounter Summary ---
Author Organization [employer] Address [address] [facility] 7t [place] [address] Care Team Providers Care Hospital Cleaner Name Role Phone Marilee Cordero SOFT TILE SETTER Primary Care Provider [phone] Cristo Garcia MD Unavailable Doris Candelario Unavailable [phone] Yoselyn Lyons Unavailable Unavailable Balbir Don Unavailable Lindsay NurD Unavailable [phone] Meño Butcher MD Unavailable Reason for Visit * Reason Comments Med Refill Encounter Details Date Type Department Care Team (Late st Contact Info) Description 07/23/2023 Refill [facility] [address] [place] [address] Donavan Mcgee AGNP Social History Tobacco Use [...] Description 10/02/2025 2:30 PM EST Medication Management [facility] [address] [place] [address] Lindsay Nur PharmD [address] [place] [address] documented as of this encounter Visit Diagnoses Not on filedocumented in this encounter Additional Health Concerns Assessment Noted Time PHQ-9 Depression Total Score: 1 10/17/20 22 10:05 AM EST documented as of this encounter Care Teams Hospital Cleaner Relationship Specialty Start Date End Date Marilee Cordero FNP [address] [place] [address] PCP - General Family Medicine 03/23/23 Cristo Garcia MD [address] [place] [address] Rheumatology 09/01/24 Doris Candelario [address] [place] [address] Cardiology 09/01/24 07/05/25 Yoselyn Lyons [address] [place] [address] Ophthalmology 09/01/24 Balbir Don 22 [facility] 301 [place] [address] Sleep Medicine 09/01/24 Lindsay Nur, PharmD [address] [place] [address] Pharmacist Pharmacy 05/29/25 Meño Butcher MD [address] [place] [address] 3rd [place] [address] Cardiology 07/06/25 Dr. Ramirez [address] [place] [address] [address] [place] [address] Nephrology 09/01/24 Noman LEWISA 03/18/25 05/04/25 documented as of this encounter
--- OUTSIDE RECORDS SUMMARY | 2025-09-23 08:36 | XMS_ITS | Encounter Summary ---
Author Organization [employer] Address [address] [place] [address] 7t [place] [address] Care Team Providers Care Auto Driver Name Role Phone Marilee Cordero Primary Care Provider [phone] Cristo Garcia MD Unavailable Doris Candelario Unavailable [phone] Yoselyn Lyons Unavailable Unavailable Balbir Don Unavailable Lindsay Nur PharmD Unavailable [phone] Meño Butcher MD Unavailable [phone] Reason for Referral * Consultation (Routine) - Closed Specialty Diagnoses / Procedures Referred By Contzena t Referred To Contact Nephrology Diagnoses Albuminuria Marilee Cordero FNP [address] [place] [address] Phone: tel: fax: Bayron Marshall MD [address] [facility] [address] [place] [address] Phone: tel: fax: Referral ID Status Reason Start Date Expiration Date V isits Requested Visits Authorized [id number] Closed Specialty Services Required 12/29/2023 12/28/2024 1 1 Encounter Details Date Type Department Care Team (Late st Contact Info) Description 12/29/2023 Orders Only [facility] [address] [place], [place] [phone] Marilee Cordero FNP [address] [place], [place] [phone] Albuminuria (Primary Dx) Social History Tobacco Use [...] Description 10/02/2025 2:30 PM EST Medication Management [facility] [address] [place] [address] Lindsay Nur, PharmD [address] [place] [address] documented as of this encounter Procedures Procedure [...] documented as of this encounter Care Teams Auto Driver Relationship Specialty Start Date End Date Marilee Cordero FNP [address] [place] [address] PCP - General Family Medicine 03/23/23 Cristo Garcia MD [address] [place] [address] Rheumatology 09/01/24 Doris Candelario [address] [place] [address] Cardiology 09/01/24 07/05/25 Yoselyn Lyons [address] [place] [address] Ophthalmology 09/01/24 Balbir Don 22 [facility] 301 [place] [address] Sleep Medicine 09/01/24 Lindsay Nur PharmD [address] [place] [address] Pharmacist Pharmacy 05/29/25 Meño Butcher MD [address] [place] [address] 3rd [place] [address] Cardiology 07/06/25 Dr. Ramirez [address] [facility] 200 [place] [address] Nephrology 09/01/24 Noman LAWRENCE 03/18/25 05/04/25 documented as of this encounter
--- OUTSIDE RECORDS SUMMARY | 2025-09-23 08:36 | XMS_ITS | Clinical Summary ---
Author Organization [facility] [place] [address] Phone Care Team Providers Care Grab Driver Name Role Phone Physician, Pcp Unknown Primary [...] (hyper tension) DM2 (diabetes mellitus, type 2) ([facility] [place], [facility] V28) 06/04/2012 DX:DM2 (diabetes mellitus, t ype 2) ([facility]) Obstructive sleep apnea 06/04/2012 DX:Obstr uctive sleep apnea Psoriatic arthritis ([facility] V24, [facility] V28) 06/04/2012 DX:Psoriatic arthritis ([facility]) Hyperlipidemia 06/04/2012 DX:Hyperlipidemi a; COMMENT: [...] Heart attack Other cousins with fa [place]'s 40's Asthma Sister Relation Name Status Comments [...] Procedure Name Priority Date/Time Associated Diagnosis Comments BASIC METABOLIC PANEL Routine 06/07/2025 5:51 AM EDT HEPATITIS C ANTIBODY Routine 02/16/2025 2:00 PM EDT from Last 3 Months or Most Recently Relevant to Health Maintenance Results * (ABNORMAL) Basic metabolic panel (06/07/2025 5:51 [...] LAB CHEMISTRY METHOD 06/07/2025 6:58 AM EDT [facility] BUN 29(H) 5 - 25 mg/dL LAB CHEMISTRY METHOD 06/07/2025 6:58 AM EDT [facility] Creatinine 1.20 0.70 - 1.30 mg/dL LAB CHEMISTRY METHOD 06/07/2025 6:58 AM EDT [facility] eGFR 71 >=60 mL/min/1. 73m2 LAB CHEMISTRY METHOD 06/07/2025 6:58 AM EDT [facility] Comment:Calculation based on the Chronic Kidney Disease Epidemiology Collaboration (CKD-EPI) equation refit without adjustment for race. BUN/Creatinine Ratio 24.2 LAB CHEMISTRY METHOD 06/07/2025 6:58 AM EDT [facility] Calcium 9.2 8.5 - 10.5 mg/dL LAB CHEMISTRY METHOD 06/07/2025 6:58 AM EDT [facility] Blood Venous blood specimen / Unknown Venipuncture / Unknown 06/07/2025 5:51 AM EDT 06/07/2025 6:23 AM EDT us Hyacinth DORSEY LAB BLOOD ORDERABLES Final R esult Performing Organization Address City/[facility]/ZIP Co de Phone Number [facility] [address] [place] [address], * Hepatitis C antibody (02/16/2025 2:00 PM EDT) Hepatitis C Antibody Negative Negative LAB CHEMISTRY METHOD 02/16/2025 5:37 PM EDT [facility] Blood Venous blood specimen / Unknown Venipuncture / Unknown 02/16/2025 2:00 PM EDT 02/16/2025 2:05 PM EDT us Ish David MD LAB BLOOD ORDERABLES Final Res ult [facility] [address] [place] [address], from Last 3 Months or Most Recently Relevant to Health Maintenance Insurance [facility] [employer] Advance Directives * Full Code [...] currently active code status orders. Care Teams Grab Driver Relationship Specialty Start Date End Date Physician, Pcp Unknown PCP - General 05/01/25
--- OUTSIDE RECORDS SUMMARY | 2025-09-23 08:36 | XMS_ITS | Clinical Summary ---
Author Organization [facility] Address [address] [address] Phone Care Team Providers Care Ratings Analyst Name Role Phone Marilee Cordero BRANDEN Primary Care Provider [phone] Allergies No known active allergies Medications amLODIPine [...] Followed by [facility] - Dr. Maturostrakul Jardiance 10mg daily Congestive heart failure 11/26/2023 Overview (04/03/2024): [facility]: Nuclear stress test: Negative ECG portion of the stress test. Myocardial perfusion imaging is normal with no evidence or fixed or reversible perfusion defects. Moderately reduced global LV function? with resting left ventricular EF of 33%, and post stress LVEF 36%. LV size moderately dilated. No evidence of transient ischemic dilation. Hospitalization for CHF exacerbation: Oct 2023 at [facility] Last Assessment & Plan: - Reviewed [...] Psoriatic arthritis 06/04/2012 Overview (03/26/2025): [facility] by [facility] Rheum - Dr. Garcia Med therapy: DMARD, Derik Previous tx: methotrexate and Enbrel (hx of failed Humira tx in Rheum note 02/04/21). Plan to hold methotrexate with hx cardiac conditions Obstructive sleep apnea syndrome 06/04/2012 Overview (03/26/2025): Following with [facility] - Dr. Balbir Don [...] to 49 Years) Discontinued 06/28/2018, 09/30/2008 Insurance [email or web address] [facility] ([id number]) [email or web address] [facility] ([id number]) Care Teams Ratings Analyst Relationship Specialty Start Date End Date Marilee Cordero FNP [address] [place] [address] PCP - General 01/08/24
== END 2025-09-23 08:18 | disposition home or self-care (01) ==
LOC: HO.US 08:17
PROVIDERS: PCP Registered Nurse; Visit Provider Internal Medicine Hypertension Specialist
DX: R31.9 Hematuria, unspecified (principal); R80.9 Proteinuria, unspecified
CPT/HCPCS: 76775

== ENCOUNTER → 2025-09-23 08:19 | Outpatient (BNV) | payer OTHER, SELFPAY | PROVIDERS: PCP Registered Nurse; Visit Provider Radiology Diagnostic Radiology | DX: R31.9 Hematuria, unspecified (principal) | CPT/HCPCS: 76775 ==

== ENCOUNTER 2025-10-09 10:01 | Outpatient (AMB) | payer OTHER, SELFPAY ==
--- NOTE | 2025-10-09 10:31 | MHC.OFFVIS ---
Intake Visit Reasons: Renal mass (set)UA+PVR) Intake Note: Patient presents today for renal mass follow up Urology Medication:Tamsulosin Blood Thinner:Aspirin Antibiotic Allergies:None PVR:582ml (asked to empty bladder, left 700ml in urinal) Advanced Practice Registered Nurse Required: Yes Advanced Practice Registered Nurse Name: Abdifatah Information Interpreted: non-clinical & clinical Allergies No Known Allergies Allergy (Verified 10/09/25 14:03) PFSH Medical History Hypoxemia Nocturnal hypoxemia Dyspnea on minimal exertion Pulmonary hypertension Dyspnea on exhalation RAKAN (obstructive sleep apnea) CHF (congestive heart failure) Psoriasis Psoriatic arthritis Hypercholesteremia Lumbago with sciatica, right side Elev transaminase/LDH Neuropathy Diabetes Psoriasis Family History Father Diabetes HTN (hypertension) Mother Diabetes Social History Household Members: Spouse Housing: House Do you presently have visiting nurse or other home services: No Alcohol intake: never Patient Tobacco Use Status: Never used Tobacco e-Cigarette/Vaping Use: Never Used service: No Current occupational status: employed 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 Procedures Post Void Residual Post Residual Void Post Void Residual (PVR): 582 [id number] Void Residual by ultrasound Results AMB Urinalysis, Automated UA Leukoctes 0 Moo/uL Last Edit by Yari Hernandez on 10/09/25 16:34 UA Nitrite Negative Last Edit by Yari Hernandez on 10/09/25 16:34 UA Urobilinogen 0.2 mg/dL Last Edit by Yari Hernandez on 10/09/25 16:34 UA Protein 300 mg/dL Last Edit by Yari Hernandez on 10/09/25 16:34 UA pH 6.0 Last Edit by Yari Hernandez on 10/09/25 16:34 UA Blood 10 Jhonny/uL Last Edit by Yari Hernandez on 10/09/25 16:34 UA Specific [place] 1.015 Last Edit by Yari Hernandez on 10/09/25 16:34 UA Ketone Negative Last Edit by Yari Hernandez on 10/09/25 16:34 UA Bilirubin 0 mg/dL Last Edit by Yari Hernandez on 10/09/25 16:34 UA Glucose 1000 mg/dL Last Edit by Yari Hernandez on 10/09/25 16:34 Results Reviewed Results Reviewed: Urine Cytology--Collected: 04/28/25 Location: .LAB Received: 04/29/25 Diagnosis Urine: Negative for high-grade urothelial carcinoma. See comment. COMMENT: Paucicellular specimen consisting of a few small groups of urothelial cells, which are small/ medium in size and have variable chromatin. The background has single urothelial cells with degenerative changes, red blood cells and chronic inflammatory cells. The differential diagnosis for these types of groups of urothelial cells includes infection, trauma (e.g. stones) and other types of urothelial neoplasms. Clinical History Gross hematuria Material Received Urine Gross Description Received is 60 cc of clear yellow fluid from which a ThinPrep slide is prepared. Assessment & Plan Assessment & Plan Orders: Orders AMB Post Void Residual by ultrasound Today N40.1 - Benign prostatic hyperplasia with lower urinary tract symptoms, R31.0 - Gross hematuria, Z12.5 - Encounter for screening for malignant neoplasm of prostate AMB Urinalysis Automated Today Z13.9 - Encounter for screening, unspecified Coding CPT Codes Post Residual Void - PVR CPT Code: [id number] Void Residual by ultrasound ([id number])
== END 2025-10-09 11:30 | disposition home or self-care (01) ==
LOC: HO.HUSH 10:02
PROVIDERS: PCP Registered Nurse; Visit Provider Urology
DX: Z13.9 Encounter for screening, unspecified (principal)

== ENCOUNTER 2025-10-09 13:54 | Outpatient (AMB) | payer OTHER, SELFPAY ==
--- OUTSIDE RECORDS SUMMARY | 2018-07-03 08:45 | XMS_ITS | Continuity of Care Document ---
Author Organization [facility] vices Address [address] [place] [address] Phone Care Team Providers Care Hot Frame Tender Name Role Phone Unavailable Unavailable Unavailable Procedures Procedure Date Psychotherapy, 30 Minutes With Patient S Psych Dx Eval Psychotherapy, 30 Minutes With Patient A Advance Directives Directive Yes / No Effective Date File Name No Information Encounters Encounter Description Practice Location Reason(s) For Visit Diagnoses Date Provider Providers Copied on Encounter Psychotherap y, 30 Minutes With Patient [facility], [address] [place] [address], tel:[phone] [facility] Behavioral Health Individual Therapy (chief complaint) Cannabis use, unspecified, uncomplicatedC ocaine use, unspecified, uncomplicatedM ajor depressive disorder, recurrent, mildPost-traum atic stress disorder, unspecified Sep-0 8 No Information Psych Dx Eval [facility], [address] [place] [address], [facility], tel:[phone] [facility] Behavioral Health Initial Assessment (chief complaint) Major depressive disorder, recurrent, mildPost-traum atic stress disorder, unspecifiedCoc norman use, unspecified, uncomplicatedC annabis use, unspecified, uncomplicated May- 8 No Information Psychotherap y, 30 Minutes With Patient [facility], [address] [place] [address], tel:[phone] [facility] Behavioral Health depression (chief complaint) Major depressive disorder, recurrent, mildPost-traum atic stress disorder, unspecified May-2 8 No Information Family History Family Member Type Diagnosis Age At Onset No Information Payers Payer name Insurance type Covered republican ID Authoriza tiluiz(s) BRII Alonso [id number] Social History Type Description Quantity Date Captured [...]
[2025-10-09 14:00] VITALS: BP 160/80; PULSE 65; O2SAT 92; BMI 32.3
--- NOTE | 2025-10-09 14:00 | HO.NEPHOV_ITS ---
Vital Signs 10/09/25 14:00 Height 6 ft Weight 238 lb BMI 32.3 BP 160/80 H Blood Pressure Location Rt brachial Position Sitting Pulse 65 Pulse Source Pulse Oximeter Pulse Oximetry (%) 92 Oxygen Delivery Method Room Air Intake Visit Reasons: 4 wks f/u w/labs and US Senior Director Marketing Required: Yes Senior Director Marketing Name: John [id number] Accompanied by: Spouse Allergies No Known Allergies Allergy (Verified 10/09/25 14:03) HPI Comments Details: History of Present Illness - Joesph is a 55-year-old male presenting with proteinuria and hematuria. - Proteinuria: Urine protein level approximately 4,000 mg, - Urine is very foamy, - Hematuria detected in tests, no visible blood observed by patient. - Diabetes Mellitus: 20-year history, currently controlled. - Hypertension: Controlled. - History of nonischemic cardiomyopathy. - Sleep Apnea: Managed with CPAP for over 15 years. History of psoriatic arthritis. He was treated with methotrexate for a long time. Currently on Taltz Recent renal USG showed renal mass and is being followed by urology. CT scan scheduled for Oct 2025 The patient reports that his blood sugar has been high, which he attributes to overeating during the holidays, and he experiences increased tingling sensations when his sugar is elevated. He also noted that his blood pressure was high today. Results - Imaging: A sonogram revealed a renal mass measuring approximately 3 to 4 cm. [facility] Medical History Hypoxemia Nocturnal hypoxemia Dyspnea on minimal exertion Pulmonary hypertension Dyspnea on exhalation RAKAN (obstructive sleep apnea) CHF (congestive heart failure) Psoriasis Psoriatic arthritis Hypercholesteremia Lumbago with sciatica, right side Elev transaminase/LDH Neuropathy Diabetes Psoriasis Family History Father Diabetes HTN (hypertension) Mother Diabetes Social History Household Members: Spouse Housing: House Do you presently have visiting nurse or other home services: No Alcohol intake: never Patient Tobacco Use Status: Never used Tobacco e-Cigarette/Vaping Use: Never Used service: No Current occupational status: employed Current occupation: [employer] Physical Exam Exam Exam: Physical Exam General: Awake. Comfortable. HENT: Neck supple. Mucosa moist. Throat a little high today. Pulmonary: Lungs aeration equal. No rales. Cardiology: Heart S1-S2 heard. No gallop. Blood pressure 140/70. Abdomen: Soft. Non tender. Bowel sounds normal. Neurologic: No involuntary movements. No myoclonus. Tingling sensation noted. Extremities: No edema. No rash. Vital Signs: Last Vital Signs Pulse 65 10/09/25 14:00 BP 160/80 H 10/09/25 14:00 Pulse Ox 92 10/09/25 14:00 Oxygen Delivery Method Room Air 10/09/25 14:00 BMI result Body Mass Index 32.3 Comfortable Neck supple no JVD. Lungs entry equal no rales. Heart S1-S2 heard no gallop or rub. Abdomen soft nontender. Neuro alert awake oriented. No asterixis. Extremities no edema. Results Reviewed Nephrology Results: Hgb, (14.0-18.0) 14.2 g/dl 09/05/25 WBC, (4.8-10.8) 6.0 X10*3/uL 09/05/25 Plt Count, (160-400) 200 X10*3/uL 09/05/25 Sodium, (135-145) 134 mmol/L L 09/05/25 Potassium, (3.3-5.1) 3.9 mmol/L 09/05/25 Chloride, (96-108) 96 mmol/L 09/05/25 Carbon Dioxide, (22-29) 27 mmol/L 09/05/25 BUN, (9-16) 24 mg/dL H 09/05/25 Creatinine, (0.5-1.4) 1.20 mg/dL 09/05/25 Calcium, (8.4-10.2) 9.3 mg/dL 09/05/25 Urine Protein, (Neg-Trace) 300 (3+) mg/dL H 09/05/25 Urine Creatinine 23.89 mg/dL 09/05/25 Renal US 09/23/25 Assessment & Plan Assessment & Plan (1) Proteinuria: Code(s): R80.9 - Proteinuria, unspecified Category: Medical (2) Hematuria: Code(s): R31.9 - Hematuria, unspecified Category: Medical (3) Psoriatic arthritis: Comment: Methotrexate - failed Enbrel - failed Humira - failed Taltz - effective but lost to follow up Code(s): L40.50 - Arthropathic psoriasis, unspecified Category: Medical (4) Acute on chronic heart failure with mildly reduced ejection fraction (HFmrEF, 41-49%): Code(s): I50.23 - Acute on chronic systolic (congestive) heart failure Category: Medical (5) CKD (chronic kidney disease): Code(s): N18.9 - Chronic kidney disease, unspecified Category: Medical Plan Plan 54-year-old man with longstanding diabetes mellitus with nephrotic range proteinuria and essentially normal renal function. Joesph most likely has diabetic nephropathy. Nevertheless nondiabetic causes should be ruled out. He has had some hematuria with a negative urological workup. Serum complements were low. He might require a kidney biopsy to rule out nondiabetic causes. At the present time renal function is normal with a creatinine of 0.9 mg/dL. and has bumped to 1.2 serologies including serum electrophoresis serum complements hepatitis panel- were essentially normal Maintain A1c less than 7% Optimize blood pressure - initial reading was elevated- repeat was better Continue with ARB for renal protection along with SGLT2 inhibitor. Goal is to slow the progression of renal disease Continue to avoid nephrotoxic agents including NSAIDs. Renal Mass - A CT scan has been ordered by urology and is scheduled for October to further evaluate the 3-4 cm renal mass found on sonogram. - The patient was informed that while the scan is necessary to rule out malignancy, most renal cysts are benign. - Care will be coordinated with the urology service following the results of the imaging. DM / Hyperglycemia - The patient reports elevated blood sugar levels, which he associates with diet during the holidays, causing tingling sensations. - He was counseled on the importance of dietary management to control blood sugar levels and preserve kidney function to avoid future dialysis. Hypertension - The patient's blood pressure was elevated at 140/70 mmHg. - He was instructed to continue his current medications. - Follow-up is scheduled in three months, with plans for blood tests to monitor kidney function at that time. Orders: Orders UA and rflx microscopic 3 Months N18.9 - Chronic kidney disease, unspecified, R80.9 - Proteinuria, unspecified Basic Metabolic Panel 3 Months N18.9 - Chronic kidney disease, unspecified, R80.9 - Proteinuria, unspecified Creatinine Urine 3 Months N18.9 - Chronic kidney disease, unspecified, R80.9 - Proteinuria, unspecified Total Protein Urine Random 3 Months N18.9 - Chronic kidney disease, unspecified, R80.9 - Proteinuria, unspecified Coding Level of Care Code Est Pt Level 4 (09676) Diagnoses Proteinuria R80.9 Hematuria R31.9 Psoriatic arthritis L40.50 Acute on chronic heart failure with mildly reduced ejection fraction (HFmrEF, 41-49%) I50.23 CKD (chronic kidney disease) N18.9
--- OUTSIDE RECORDS SUMMARY | 2025-10-09 21:11 | XMS_ITS | Encounter Summary ---
Author Organization [employer] Address [address] [facility] 7t [place] [address] Care Team Providers Care Scientific Writer Name Role Phone Marilee Cordero Primary Care Provider [phone] Cristo Garcia MD Unavailable Doris Candelario Unavailable [phone] Yoselyn Lyons Unavailable Unavailable Balbir Don Unavailable Lindsay NurD Unavailable [phone] Meño Butcher MD Unavailable [phone] Reason for Visit * Reason Onset Date Comments Hospital Follow-up 03/17/2025 Encounter Details Date Type Department Care Team (Late st Contact Info) Description 03/17/2025 Telephone [facility] MED[facility]INE [address] [place] [address] Marilee Cordero FNP [address] [place], [place] [phone] Hospital Follow-up Social History Tobacco Use Types [...] from pt requesting a HDF appt. Hospital: [facility] [place] [place] Date of admission: 03/11/25 Discharge date: 03/15/25 Diagnosed: Leg pain and goes up to back *Send message to [facility] Clinical Care Coordinators documented in this encounter Plan of Treatment Not on file documented as of this encounter Visit Diagnoses Not on filedocumented in this encounter Additional Health Concerns Assessment Noted Time PHQ-9 Depression Total Score: 13 025 8:59 AM EDT documented as of this encounter Care Teams Scientific Writer Relationship Specialty Start Date End Date Marilee Cordero FNP [address] [place] [address] PCP - General Family Medicine 03/23/23 Cristo Garcia MD [address] [place] [address] Rheumatology 09/01/24 Doris Candelario [address] [place], [place] Cardiology 09/01/24 07/05/25 Yoselyn Lyons [address] [place] [address] Ophthalmology 09/01/24 Balbir Don 22 [facility] [address] [place] [address] Sleep Medicine 09/01/24 Lindsay Nur PharmD [address] [place] [address] Pharmacist Pharmacy 05/29/25 Meño Butcher MD [address] [place] [address] 3rd [place] [address] Cardiology 07/06/25 Dr. Ramirez [address] [facility] 200 [place] [address] Nephrology 09/01/24 [facility] 03/18/25 05/04/25 documented as of this encounter
--- OUTSIDE RECORDS SUMMARY | 2025-10-09 21:11 | XMS_ITS | Clinical Summary ---
Author Organization [employer] Address [address] [facility] [address] [place] [address] Care Team Providers Care Sulfate Drier Machine Operator Name Role Phone Marilee Cordero BRANDEN Primary Care Provider [phone] Cristo Garcia MD Unavailable Yoselyn Lyons Unavailable Unavailable Balbir Don Unavailable Lindsay Nur PharmD Unavailable [phone] Meño Butcher MD Unavailable [phone] Allergies No known active allergies Medications Blood Pressure kit Use daily Active Blood Glucose Monitoring Suppl (FreeStyle [place] Lite) w/Device kit 1 each by Other [...] lantus pen 100 each 3 3 Active acetaminophen (Tylenol) 500 MG tablet Take [...] by mouth 2 times daily. 5 Active empagliflozin (Jardiance) 25 MG Take 1 tablet (25 mg) by mouth Once per day. 90 tablet 3 5 Active spironolactone (Aldactone) 25 MG tablet 5 Active Dulaglutide (Trulicity) 3 MG/0.5ML solution auto-injectorIn dications:Type 2 diabetes mellitus with hyperglycemia, with long-term current use of insulin ([facility]) Inject 3 mg under the skin 1 (one) time per week. 2 mL 2 5 Active metFORMIN XR (Glucophage-XR) 500 MG 24 hr tabletIndicatio ns:Type 2 diabetes mellitus with hyperglycemia, with long-term current use of insulin ([facility]) TAKE 1 TABLET BY MOUTH TWICE DAILY IN THE MORNING AND IN THE EVENING WITH MEALS 180 tablet 1 5 Active insulin glargine (Lantus SoloStar) 100 UNIT/ML penIndications: Type 2 diabetes mellitus with hyperglycemia, with long-term current use of insulin ([facility]) Inject 20 Units under the skin at bedtime. 15 mL 3 5 Active Active Problems Problem Noted Date Diagnosed Date Hematuria 04/29/2025 Overview (07/06/2025): Following with [facility] - Dr. Cramer Assessment & Plan [...] confirmed with send out Following with [facility] Diabetic polyneuropathy asso ciated with type [...] Followed by [facility] - Dr. James Hogan 10mg daily Psoriatic arthritis ([facility]) 08/30/2024 Overview (04/01/2025): Followed by [facility] - Dr. Garcia Med therapy: DMARD [...] failure 11/26/2023 Overview (07/06/2025): [facility] with [facility] - Dr. Butcher April: Nuclear stress test: [...] Hospitalization for CHF exacerbation: Oct 2023 at [facility] - Reviewed condition and concerning signs/symptoms Pharmacotherapy: Aspirin 81mg daily Atorvastatin 40mg nightly Furosemide 40mg BID (RX nephrology) Spironolactone 25mg daily (RX cards) Jardiance 25mg daily Carvedilol 6.25mg BID Entresto 24-26mg BID Assessment & Plan (04/01/2025 7:07 PM EDT): Follow-up with [facility] as scheduled in April 2025. Reports they are already on wait list in case anything sooner becomes available. Assessment & Plan (01/27/2025 9:50 AM EDT): Cont current therapy, symptomatic SOB/BELL Referral to [facility] for further eval Assessment & Plan [...] following with renal for proteinuria -Established with [facility] Assessment & Plan (04/01/2025 7:01 PM EDT): - Initial BG reading HH. Repeat value [facility]HH s/p 10 units lispro. Re-check #3 resulted 436 s/p second dose of 10 units insulin lispro. Pt unable to void for UA. Discussed ED precautions. - Previous rx of Jardiance 10mg daily (rx through [facility] - unclear if currently taking) - No [...] in Rheum note 02/04/21) -Re-established with [facility] Nov 2021, last consult appt December 2023 Plan to hold methotrexate with hx cardiac conditions Taltz injections through Rheum with notable improvement Assessment & Plan (03/03/2024 2:42 PM EDT): -Previous tx with methotrexate and Enbrel (hx of failed Humira tx in Rheum note 02/04/21) -Re-established with [facility] Nov 2021, last consult appt December 2023 Plan to hold methotrexate with hx cardiac conditions Authorization for Derik is pending Assessment & Plan (08/11/2023 1:16 PM EDT): -Previous tx with methotrexate and Enbrel (hx of failed Humira tx in Rheum note 02/04/21) -Re-established with [facility] Nov 2021 Says may have re-started on methotrexate but unsure. Will bring med list to next appt. -Pt was also referred to [facility] Derm Team, appt pending Assessment & Plan (04/12/2023 1:37 PM EDT): -Previous tx with methotrexate and Enbrel (hx of failed Humira tx in Rheum note 02/04/21) -Re-established with [facility] Nov 2021 Says may have re-started on methotrexate but unsure. Will bring med list to next appt. -Pt was also referred to [facility] Derm Team, appt pending Assessment & Plan (10/20/2022 9:18 AM EST): -Previous tx with methotrexate and Enbrel (hx of failed Humira tx in Rheum note 02/04/21) -Reports has not been taking any meddications for psoriasis in > 6 month, interested in re-establishing with specialists -Upcoming appt with [facility] Nov 2021 -Pt was also referred to [facility] Derm Team, appt pending Hypertension 06/13/2012 [...] intermittent discomfort with mask Referral to [facility] for further eval and management Resolved Problems Problem Noted Date Diagnosed Date Resolved Date Retention of urine 02/26/2015 Elevated levels of transamin ase & lactic acid dehydrogenase 08/14/2012 10/20/2022 Encounters Date Type Department Care Team Description 10/08/2025 Telephone [facility] MEDICINE [address] [place] [address] Marilee Cordero FNP 10/03/2025 Telephone [facility] MED & PEDS [address] [place] [address] Marilee Cordero FNP EMG Results 10/02/2025 Telephone [facility] [address] [place] [address] Marilee Cordero FNP 09/23/2025 Orders Only [facility] External Provider, [facility] 09/05/2025 Orders Only GENERIC EXTERNAL DATA DEPARTMENT Provider, Generic External Data 09/05/2025 Telephone [facility] MED & PEDS [address] [place] [address] Lindsay Nur, PharmD 09/05/2025 Travel 09/01/2025 Telephone [facility] MED & PEDS [address] [place] [address] Marilee Cordero FNP 09/01/2025 Travel 08/26/2025 Telephone [facility] MED & PEDS [address] [place] [address] Marilee Cordero FNP Transition Of Care (Tcm) 08/25/2025 Orders Only [facility] MED & PEDS [address] [place] [address] Jamaica Roman MD Diabetic macular edema (HCC) (Primary Dx); Primary hypertension 08/20/2025 Telephone [facility] MED & PEDS [address] [place] [address] Lindsay Nur, PharmD from Last 3 Months Immunizations Immunization Administration [...] 07/04/2025 8:49 AM EDT Plan of Treatment Health Maintenance [...] on patient's age to complete this topic Goals Goal Patient Goal Type Associated Problems Recent Progress Patient-Stated? Author Help patients manage their type 2 diabetes Care Plan Help patients manage their type 2 diabetes No Lindsay Nur, PharmD Weekly blood pressure task Care Plan Weekly blood pressure task No Toni Nura, PharmD Help patients manage their type 2 diabetes Care Plan Help patients manage their type 2 diabetes No Liudmila Lindsay, PharmD Patient has diabetic eye disease Care Plan Patient has diabetic eye disease No Liudmila Lindsay, PharmD Help patients manage their type 2 diabetes Care Plan Help patients manage their type 2 diabetes No Liudmila Lindsay, PharmD Patient has chronic kidney disease Care Plan Patient has chronic kidney disease No Liudmila Lindsay, PharmD Help patients manage their type 2 diabetes Care Plan Help patients manage their type 2 diabetes No Liudmila Lindsay, PharmD Patient has diabetic neuropathy Care Plan Patient has diabetic neuropathy No Toni Nura, PharmD Weekly blood pressure task Care Plan Weekly blood pressure task No Liudmila Lindsay, PharmD Weekly blood pressure task Care Plan Weekly blood pressure task No Liudmila Lindsay, PharmD Weekly blood pressure task Care Plan Weekly blood pressure task No Liudmila Lindsay, PharmD Patient has diabetic eye disease Care Plan Patient has diabetic eye disease No Liudmila Lindsay, PharmD Patient has diabetic eye disease Care Plan Patient has diabetic eye disease No Liudmila Lindsay, PharmD Patient has diabetic eye disease Care Plan Patient has diabetic eye disease No Lindsay Nur, PharmD Patient has chronic kidney disease Care Plan Patient has chronic kidney disease No Toni Nura, PharmD Patient has chronic kidney disease Care Plan Patient has chronic kidney disease No Toni Nura, PharmD Patient has chronic kidney disease Care Plan Patient has chronic kidney disease No Toni Nura, PharmD Patient has diabetic neuropathy Care Plan Patient has diabetic neuropathy No Toni Nura, PharmD Patient has diabetic neuropathy Care Plan Patient has diabetic neuropathy No Toni Nura, PharmD Patient has diabetic neuropathy Care Plan Patient has diabetic neuropathy No Lindsay Nur, PharmD Weekly blood pressure task Care Plan Weekly blood pressure task No Rosalba Awan Weekly blood pressure task Care Plan Weekly blood pressure task No Rosalba Awan Weekly blood pressure task Care Plan Weekly blood pressure task No Rosalba Awan Weekly blood pressure task Care Plan Weekly blood pressure task No Rosalba Awan Patient has diabetic eye disease Care Plan Patient has diabetic eye disease No Rosalba Awan Patient has diabetic eye disease Care Plan Patient has diabetic eye disease No Rosalba Awan Patient has diabetic eye disease Care Plan Patient has diabetic eye disease No Christopher Awanelitasia Patient has diabetic eye disease Care Plan Patient has diabetic eye disease No Rosalba Awan Patient has chronic kidney disease Care Plan Patient has chronic kidney disease No Cesilia Awanngelitasia Patient has chronic kidney disease Care Plan Patient has chronic kidney disease No Christopher Awanelitasia Patient has chronic kidney disease Care Plan Patient has chronic kidney disease No Rosalba Awan Patient has chronic kidney disease Care Plan Patient has chronic kidney disease No Rosalba Awan Patient has diabetic neuropathy Care Plan Patient has diabetic neuropathy No Cesilia Awanngelitasia Patient has diabetic neuropathy Care Plan Patient has diabetic neuropathy No Cesilia Awanngelitasia Patient has diabetic neuropathy Care Plan Patient has diabetic neuropathy No Rosalba Awan Patient has diabetic neuropathy Care Plan Patient has diabetic neuropathy No Rosalba Awan Weekly blood pressure task Care Plan Weekly blood pressure task No Phalen, Marilee, [employer] Weekly blood pressure task Care Plan Weekly blood pressure task No Phalen, Marilee, B[employer] Weekly blood pressure task Care Plan Weekly blood pressure task No Phalen, Marilee, B[employer] Weekly blood pressure task Care Plan Weekly blood pressure task No Phalen, Marilee, B[employer] OPERATOR [employer] Patient has diabetic eye disease Care Plan Patient has diabetic eye disease No Phalen, Marilee, B[employer] M[employer] OPERATOR [employer] Patient has diabetic eye disease Care Plan Patient has diabetic eye disease No Phalen, Marilee, B[employer] OPERATOR [employer] Patient has diabetic eye disease Care Plan Patient has diabetic eye disease No Phalen, Marilee, B[employer] M[employer] OPERATOR [employer] Patient has diabetic eye disease Care Plan Patient has diabetic eye disease No Phalen, Marilee, B[employer] OPERATOR [employer] Patient has chronic kidney disease Care Plan Patient has chronic kidney disease No Phalen Marilee, BORE M[employer] OPERATOR [employer] Patient has chronic kidney disease Care Plan Patient has chronic kidney disease No Phalen, Marilee, B[employer] OPERATOR [employer] Patient has chronic kidney disease Care Plan Patient has chronic kidney disease No Phalen, Marilee, B[employer] M[employer] OPERATOR [employer] Patient has chronic kidney disease Care Plan Patient has chronic kidney disease No Phalen, Marilee, B[employer] OPER[employer] Patient has diabetic neuropathy Care Plan Patient has diabetic neuropathy No Phalen Marilee, B[employer] OPERATOR [employer] Patient has diabetic neuropathy Care Plan Patient has diabetic neuropathy No Phalen Marilee, B[employer] OPERATOR [employer] Patient has diabetic neuropathy Care Plan Patient has diabetic neuropathy No Phalen Marilee, B[employer] OPERATOR [employer] Patient has diabetic neuropathy Care Plan Patient has diabetic neuropathy No Phalen, Marilee, B[employer] Weekly blood pressure task Care Plan Weekly blood pressure task No Rosalba Awan Weekly blood pressure task Care Plan Weekly blood pressure task No Rosalba Awan Weekly blood pressure task Care Plan Weekly blood pressure task No Rosalba Awan Weekly blood pressure task Care Plan Weekly blood pressure task No Rosalba Awan Patient has diabetic eye disease Care Plan Patient has diabetic eye disease No Rosalba Awan Patient has diabetic eye disease Care Plan Patient has diabetic eye disease No Rosalba Awan Patient has diabetic eye disease Care Plan Patient has diabetic eye disease No Cesilia Awanngelitasia Patient has diabetic eye disease Care Plan Patient has diabetic eye disease No Rosalba Awan Patient has chronic kidney disease Care Plan Patient has chronic kidney disease No Rosalba Awan Patient has chronic kidney disease Care Plan Patient has chronic kidney disease No Rosalba Awan Patient has chronic kidney disease Care Plan Patient has chronic kidney disease No Rosalba Awan Patient has chronic kidney disease Care Plan Patient has chronic kidney disease No Rosalba Awan Patient has diabetic neuropathy Care Plan Patient has diabetic neuropathy No Rosalba Awan Patient has diabetic neuropathy Care Plan Patient has diabetic neuropathy No Rosalba Awan Patient has diabetic neuropathy Care Plan Patient has diabetic neuropathy No Rosalba Awan Patient has diabetic neuropathy Care Plan Patient has diabetic neuropathy No Rosalba Awan Procedures Procedure Name Priority Date/Time Associated Diagnosis Comments US RENAL COMPLETE Routine 09/23/2025 3:1 9 PM EST IMMUNOFIXATION, SERUM Routine 09/05/2025 2:27 PM EST [...] Routine 09/05/2025 2:21 PM EST URINALYSIS, COMPLETE (INCLUDES MACRO AND MICRO) Routine 09/05/2025 2:21 PM EST LIPID PANEL, STANDARD Routine 07/04/2025 10:07 AM [...] Recently Relevant to Health Maintenance Results * US Renal Complete (09/23/2025 3:19 PM EST) Anatomical Region Laterality Modality Kidney Ultrasound 09/23/2025 3:19 PM EST Narrative 09/23/2025 3:20 PM EST [place] [address] Ultrasound Report Signed with Addenda Patient: Joesph Saldana MR#: [id number] : 1970 Acct:[id number] Age/Sex: 55 / M ADM Date: 09/23/25 Loc: HO.US Attending Dr: Santo Brooks MD Ordering Physician: Santo Brooks MD Date of Service: 09/23/25 Procedure(s): US renal BI Accession Number(s): [id number] cc: Santo Brooks MD; Marilee Cordero Reason for Exam: R31.9 - Hematuria, unspecified ADDENDUM This document has been electronically signed by: Jerri Zamora MD on 09/23/2025 15:19:29 ADDENDUM: Receipt of this report by the clinical staff was confirmed with Reva Cardona MA on Sep 23, 2025 15:37:00 EST. This document has been electronically signed by: Claudia Barnett on 09/23/2025 15:40:17 Addendum Dictated By: Jerri Zamora MD Addendum Signed By: <Electronically signed by Jerri Zamora MD in OV> 09/23/251539 Addendum Cosigned By: DD/ TD/TT: 09/23/25 CLINICAL HISTORY: R31.9 - Hematuria, unspecified US of kidneys Comparison: None provided Findings: Right kidney is normal in size, echogenicity and morphology, 13.0 cm in length. No calculus, mass or hydronephrosis. Left kidney is normal in size, echogenicity and morphology, 14.0 cm in length. Mildly lobulated hypoechoic solid structure at the interpolar cortex, slightly hyperechoic to adjacent normal cortex, 3.8 x 2.5 x 2.2 cm, no posterior acoustic features, color Doppler demonstrates internal vascular flow. No calculus or hydronephrosis. Limited color Doppler demonstrates unremarkable bilateral blood flow. Impression: Probable left renal solid mass, malignancy needs to be excluded, recommend renal CT or MRI without and with IV contrast. This document has been electronically signed by: Jerri Zamora MD on 09/23/2025 15:19:29 Dictated By: Jerri Zamora MD Signed By: <Electronically signed by Jerri Zamora MD in OV> 09/23/25 1520 DD/ 18 TD/TT: 09/23/251518 [employer] General Supervisor: Procedure Note Donotuseinterpreter, Image - 09/23/[address] [address] Ultrasound Report Signed with Addenda Patient: Joesph Saldana LMR#: [id number] : 1970Acct:[id number] Age/Sex: 55 / MADM Date: 09/23/25 Loc: HO.US Attending Dr: Santo Brooks MD Ordering Physician: Santo Brooks MD Date of Service: 09/23/25 Procedure(s): US renal BI Accession Number(s): [id number] cc: Santo Brooks MD; Marilee Cordero Reason for Exam: R31.9 - Hematuria, unspecified ADDENDUM This document has been electronically signed by: Jerri Zamora MD on 09/23/2025 15:19:29 ADDENDUM: Receipt of this report by the clinical staff was confirmed with Reva Cardona MA on Sep 23, 2025 15:37:00 EST. This document has been electronically signed by: Claudia Barnett on 09/23/2025 15:40:17 Addendum Dictated By: Jerri Zamora MD Addendum Signed By: <Electronically signed by Jerri Zamora MD inOV> 09/23/251539 Addendum Cosigned By: DD/ TD/TT: 09/23/25 CLINICAL HISTORY: R31.9 - Hematuria, unspecified US of kidneys Comparison: None provided Findings: Right kidney is normal in size, echogenicity and morphology, 13.0 cm in length. No calculus, mass or hydronephrosis. Left kidney is normal in size, echogenicity and morphology, 14.0 cm in length. Mildly lobulated hypoechoic solid structure at the interpolar cortex, slightly hyperechoic to adjacent normal cortex, 3.8 x 2.5 x 2.2 cm, no posterior acoustic features, color Doppler demonstrates internal vascular flow. No calculus or hydronephrosis. Limited color Doppler demonstrates unremarkable bilateral blood flow. Impression: Probable left renal solid mass, malignancy needs to be excluded, recommend renal CT or MRI without and with IV contrast. This document has been electronically signed by: Jerri Zamora MD on 09/23/2025 15:19:29 Dictated By: Jerri Zamora MD Signed By: <Electronically signed by Jerri Zamora MD in OV> 09/23/25 1520 DD/ 18 TD/TT: 09/23/251518 [employer] General Supervisor: [facility] External Provider IMG US PROCEDURES Edited Result - Final * ANCA Screen with Reflex to ANCA Titer (09/05/2025 2:27 PM EST) Pathologist [facility] ANCA Screen NEGATIVE NEGATIVE [facility] Comment:ANCA screen uses ind irect immunofluorescence to detectantibodies to neutrophil cytoplasmic antigens. Apositive screen reflexes to titer and pattern. Patternsinclude cytoplasmic (c-ANCA) and perinuclear (p-ANCA)both of which are associated with vasculitis, andatypical p-ANCA which is associated with inflammatorybowel disease and other disorders.THIS TEST WAS PERFORMED AT:[facility] [place] [id number] MCINTOSH MD P-ANCA Titer TNP [facility] Atypical P-ANCA Titer NMP [facility] C-ANCA Titer [facility] 09/05/2025 2:27 PM EST 09/05/2025 2:27 PM EST us Generic External Data Provider LAB BLOOD ORDERAB LES Final Result [facility] [address] [place] [phone] * (ABNORMAL) CBC auto differential (09/05/2025 2:27 PM EST) Pathologist [facility] White Blood Count 6.0 4.8 - 10.8 X10*3/uL [facility] Red Blood Count 5.06 4.60 - 5.80 X10*6/uL [facility] Hemoglobin 14.2 14.0 - 18.0 g/dl [facility] Hematocrit 41.9(L) 42.0 - 52.0 % [facility] Mean Corpuscular Volume 82.8 80.0 - 98.0 fL [facility] Mean Corpuscular Hemoglobin 28.1 27.0 - 33.0 pg [facility] Mean Corpuscular HGB Conc 33.9 31.0 - 36.0 g/dl [facility] Red Cell Distribution Width 13.5 11.0 - 16.0 % [facility] Platelet Count 200 160 - 400 X10*3/uL [facility] Mean Platelet Volume 10.0 9.4 - 12.4 fL [facility] Neutrophils Percent Auto 81.8(H) 45 - 73 % [facility] Imm Gran Pct Auto 0.2 0.0 - 0.4 % [facility] Lymphocytes Percent Auto 9.3(L) 20 - 40 % [facility] Monocytes Percent Auto 6.5 2 - 11 % [facility] Eosinophils Percent Auto 1.7 0 - 4 % [facility] Basophils Percent Auto 0.5 0 - 2 % [facility] NRBC Pct Auto 0.0 0.0 - 0.2 /100WBC [facility] Neutrophils Absolute Auto 4.9 2.0 - 8.3 x10*3/uL [facility] Imm Gran Abs Auto 0.01 0.00 - 0.03 X10*3/uL [facility] Lymphocytes Absolute Auto 0.6(L) 1.2 - 4.9 X10*3/uL [facility] Monocytes Absolute Auto 0.4 0.1 - 1.2 X10*3/uL [facility] Eosinophils Absolute Auto 0.1 0.0 - 0.4 X10*3/uL [facility] Basophils Absolute Auto 0.0 0.0 - 0.2 X10*3/uL [facility] NRBC Abs Auto 0.000 0.0 - 0.012 X10*3/uL [facility] 09/05/2025 2:27 PM EST 09/05/2025 2:27 PM EST us Generic External Data Provider LAB BLOOD ORDERAB LES Final Result [facility] [address] [place] [phone] * Glomerular Basement Membrane Antibody (IgG) (09/05/2025 2:27 PM EST) Glomerular Basement Memebrane Antibody (IgG) <1.0 AI [facility] Comment:Value Interpretation ----- <1.0 No Antibody Detected > or = 1.0 Antibody DetectedTHIS TEST WAS PERFORMED AT:[employer] [address] [phone] MCINTOSH MD 09/05/2025 2:27 PM EST 09/05/2025 2:27 PM EST Generic External Data Provider LAB BLOOD ORDERAB LES Final Result Performing Organization Address [facility] Co de Phone Number [facility] [address] [place] [phone] * Hepatitis B surface antigen, EIA (09/05/2025 2:27 PM EST) Pathologist [facility] Hepatitis B Surface Ag Negative Negative [facility] 09/05/2025 2:27 PM EST 09/05/2025 2:27 PM EST Generic External Data Provider LAB BLOOD ORDERAB LES Final Result Performing Organization Address [facility] de Phone Number [facility] [address] [place] [phone] * Hepatitis B Core Antibody, Total (09/05/2025 2:27 PM EST) Pathologist [facility] Hepatitis B Core Antibody Nonreactive Nonreactive [facility] 09/05/2025 2:27 PM EST 09/05/2025 2:27 PM EST Generic External Data Provider LAB BLOOD ORDERAB LES Final Result Performing Organization Address [facility] de Phone Number [facility] [address] [place] [phone] * Hepatitis B Surface Antibody, Qualitative (09/05/2025 2:27 PM EST) ~Hepatitis B Surface Antibody NONREACTIVE Nonreactive [facility] Comment:Nonreactive: < 8.00 mIU/mL 09/05/2025 2:27 PM EST 09/05/2025 2:27 PM EST Generic External Data Provider LAB BLOOD ORDERAB LES Final Result Performing Organization Address [facility] de Phone Number [facility] [address] [place] [phone] * Immunofixation, Serum (09/05/2025 2:27 PM EST) IMMUNOGLOBULIN G 889 600 - 1640 mg/dL [facility] IMMUNOGLOBULIN A 292 47 - 310 mg/dL [facility] Immunoglobulin M 111 50 - 300 mg/dL [facility] Comment:THIS TEST WAS PERFOR MED AT:[facility] [place] [id number] MCINTOSH MD Immunofixation Result [facility] Comment:No monoclonal protei ns detected 09/05/2025 2:27 PM EST 09/05/2025 2:27 PM EST Generic External Data Provider LAB BLOOD ORDERAB LES Final Result Performing Organization Address [facility] de Phone Number [facility] [address] [place] [phone] * RAMESH Screen,IFA, with Reflex to Titer and Pattern (09/05/2025 2:27 PM EST) Anti Nuclear Antibody Screen NEGATIVE NEGATIVE [facility] Comment:RAMESH IFA is a first [...] clinicallysuspected inflammatory myopathies.AC-0: NegativeInternational Consensus on RAMESH Patterns(https://doi.org/10.1515/wqso-8130-4581)For additional information, please refer tohttp://education.[employer]/faq/FEC673(This link is being provided for informational/educational purposes only.)THIS TEST WAS PERFORMED AT:[facility] [place] [id number] MCINTOSH MD RAMESH Titer TNP [facility] RAMESH Pattern TNP [facility] RAM[facility]iter 2 [facility] Pattern 2 [facility] RAMESH TITER 3 [facility] RAMESH PATTERN 3 [facility] 09/05/2025 2:27 PM EST 09/05/2025 2:27 PM EST us Generic External Data Provider LAB BLOOD ORDERAB LES Final Result [facility] [address] [place] [phone] * Protein, Total and Protein??Electrophoresis (09/05/2025 2:27 PM EST) Prot Elec - Total Protein 6.6 6.1 - 8.1 g/dL [facility] Prot Elec - Albumin 3.9 3.8 - 4.8 g/dL [facility] Prot Elec - Alpha1 0.2 0.2 - 0.3 g/dL [facility] Prot Elec - Alpha2 0.9 0.5 - 0.9 g/dL [facility] Prot Elec - Beta 1 0.4 0.4 - 0.6 g/dL [facility] Prot Elec - Beta 2 0.4 0.2 - 0.5 g/dL [facility] Prot Elec - Gamma 0.8 0.8 - 1.7 g/dL [facility] PES - Abn Protein Band 1 [facility] PES-Abn Protein Band 2 [facility] PES-Abn Protein Band 3 [facility] Prot Elec - Interpretation SEE NOTE [facility] Comment:Normal Serum Protein Electrophoresis Pattern.No abnormal protein bands (M-protein) detected.THIS TEST WAS PERFORMED AT:[facility] [place] [id number] MCINTOSH MD 09/05/2025 2:27 PM EST 09/05/2025 2:27 PM EST us Generic External Data Provider LAB BLOOD ORDERAB LES Final Result [facility] [address] [place] [address] [phone] * (ABNORMAL) Comprehensive Metabolic Panel (09/05/2025 2:27 PM EST) Sodium 134(L) 135 - 145 mmol/L [facility] Potassium 3.9 3.3 - 5.1 mmol/L [facility] Chloride 96 96 - 108 mmol/L [facility] Carbon Dioxide 27 22 - 29 mmol/L [facility] Anion Gap 15 12 - 20 [facility] Urea Nitrogen (BUN) 24(H) 9 - 16 mg/dL [facility] Creatinine, Serum 1.20 0.5 - 1.4 mg/dL [facility] Estimated Glomerular Filt Rate >60 [facility] Comment:Chronic Kidney Disea se: Estimated GFR < 60 mL/min/1.66j9Cruxbn Kidney Disease: Estimated GFR < 15 mL/min/1.73m2 Glucose 634(HH) 60 - 115 mg/dL [facility] Comment:Critical value for G LUCOSE Results called to and read corinne CORTES Person calling: NOEMI Date: 09/05/25 Time: 1516 Calcium 9.3 8.4 - 10.2 mg/dL [facility] Bilirubin, Total 0.5 0.0 - 1.0 mg/dL [facility] Aspartate Amino Transferase 18 5 - 37 U/L [facility] Alanine Aminotransferase 20 0 - 40 U/L [facility] Total Protein 6.8 6.5 - 8.0 g/dL [facility] Albumin Level 4.0 3.5 - 5.0 g/dL [facility] Alkaline Phosphatase 108 39 - 117 U/L [facility] 09/05/2025 2:27 PM EST 09/05/2025 2:27 PM EST Generic External Data Provider LAB BLOOD ORDERAB LES Final Result Performing Organization Address [facility] de Phone Number [facility] [address] [place] [phone] * (ABNORMAL) Urine Protein, Total, Random without Creatinine (09/05/2025 2:21 PM EST) Protein, Total, Random Urine 172(H) <12 mg/dL [facility] 09/05/2025 2:21 PM EST 09/05/2025 2:37 PM EST Generic External Data Provider LAB URINE ORDERAB LES Final Result Performing Organization Address [facility] de Phone Number [facility] [address] [place] [phone] * Creatinine, Random Urine (09/05/2025 2:21 PM EST) Creatinine, Urine 23.89 mg/dL [facility] 09/05/2025 2:21 PM EST 09/05/2025 2:37 PM EST Generic External Data Provider LAB URINE ORDERAB LES Final Result Performing Organization Address [facility] de Phone Number [facility] [address] [place] [phone] * (ABNORMAL) Urinalysis Complete (09/05/2025 2:21 PM EST) Color Urine Yellow [facility] Appearance Urine Clear [facility] PH 6.0 5.0 - 9.0 [facility] Glucose Urine UA >=1000(A) Negative mg/dL [facility] Urine Blood Trace(A) Negative [facility] Specific [place] - Urine >=1.030(H) 1.005 - 1.025 [facility] Urine Protein 300 (3+)(A) Neg-Trace mg/dL [facility] Urine Ketones Negative Negative mg/dL [facility] Nitrite Urine Negative Negative [facility] Leukocyte Esterase Urine Negative Negative [facility] RBC Urine 0-2 0 - 2 /HPF [facility] Urine WBC 0-5 0 - 5 /HPF [facility] Urine Squamous Epithelial Cell 0-2 0 - 2 /HPF [facility] Urine Bacteria None Seen None Seen [facility] Hyaline Casts, Urine 0-2 0 - 2 /LPF [facility] 09/05/2025 2:21 PM EST 09/05/2025 2:37 PM EST us Generic External Data Provider LAB URINE ORDERAB LES Final Result [facility] [address] [place] [address] [phone] * (ABNORMAL) Lipid Panel, Standard (07/04/2025 10:07 AM EDT) Triglycerides 129 <150 mg/dL [facility] Comment:Desirable Triglyceri de: less than 150 mg/dLBorderline High Triglyceride 150-199 mg/dLHigh Triglyceride: 200-499 mg/dLVery High Triglyceride: greater than or equal to 5OO mg/dL Cholesterol 158 <200 mg/dL [facility] Comment:Desirable Cholestero l: less than 200 mg/dLBorderline High Cholesterol: 200-239 mg/dLHigh Cholesterol: greater than 239 mg/dL LDL Cholesterol Calculated 104(H) <100 mg/dL [facility] Comment:Desirable LDL: less than 100 mg/dLNear Optimal/Above Optimal LDL: 110- 129 mg/dLBorderline High LDL: 130-159 mg/dLHigh LDL: 160-189 mg/dLVery High LDL: greater than or equal to 190 mg/dL HDL Cholesterol 29(L) >40 mg/dL [facility] Comment:Desirable HDL: great er than 40 mg/dL Note: This HDL assay may give artificially low results in patients with liver disease. Blood Venous blood specimen / Unknown 07/04/2025 10:07 AM EDT 07/04/2025 11:47 AM EDT Marilee Cordero B[employer] M[employer] OPERATOR [employer] LAB BLOOD ORDERABLES Final Res ult Performing Organization Address [facility] Co de Phone Number [facility] [address] [place] [phone] * (ABNORMAL) POCT A1c (06/26/2025 1:35 PM EDT) Hemoglobin A1C 10.8(A) 4.0 - 5.7 % QC Media Lot # [id number] Lot# Expiration Date Blood 06/26/2025 1:35 PM EDT Marilee Cordero B[employer] M[employer] OPERATOR [employer] P[employer] POINT OF CARE TEST ENTER/EDIT ORDERABLES Final Result * Hepatitis Panel, General (02/26/2025 7:32 AM EDT) Hepatitis A IgM Nonreactive Nonreactive [facility] Comment:IgM antibodies to GIBSON V not detected; does not exclude earlyacute or recovered HAV infection. ~Hepatitis B Surface Antibody NONREACTIVE Nonreactive [facility] Comment:Nonreactive: < 8.00 mIU/mL Hepatitis B Core Antibody Nonreactive Nonreactive [facility] Hepatitis C Antibody Nonreactive Nonreactive [facility] Comment:Antibodies to HCV no t detected; does not exclude early acuteHCV infection. Hepatitis B Surface Ag Negative Negative [facility] 02/26/2025 7:32 AM EDT 02/26/2025 7:32 AM EDT Generic External Data Provider LAB BLOOD ORDERAB LES Final Result Performing Organization Address [facility]/ZIP Co de Phone Number [facility] [address] [place] [phone] [phone] * HIV-1/2 Antigen and Antibodies, Fourth Generation, with Reflexes (09/13/2023 7:53 AM EST) HIV AB/AG Nonreactive Nonreactive [facility] Comment:HIV-1 p24 Ag and/or HIV-1/HIV-2 Ab not detected.A test result that is nonreactive does not exclude thepossibility of exposure to or infection with HIV-1 and/orHIV-2. Nonreactive results in this assay for individualswith prior exposure to HIV-1 and/or HIV-2 may be due toantigen and antibody levels that are below the limit ofdetection of this assay.The Circular HIV Ag/Ab Combo assay result andsupplemental assay results should be interpreted inconjunction with the patient's clinical presentation,history and other laboratory results. If the results areinconsistent with clinical evidence, additional testing issuggested to confirm the result. Blood Venous blood specimen / Unknown 09/13/2023 7:53 AM EST 09/13/2023 7:53 AM EST us Marilee Cordero [facility] LAB BLOOD ORDERABLES Final Res ult [facility] [address] [place] [address] [phone] from Last 3 Months or Most Recently Relevant to Health Maintenance Additional Health Concerns Active Problems Noted Date Diagnosed Date Help patients manage their type 2 diabetes 10/01 Weekly blood pressure task 10/01/2025 Help patients manage their type 2 diabetes 10/01 Patient has diabetic eye disease 10/01/2025 Help patients manage their type 2 diabetes 10/01 Patient has chronic kidney disease 10/01/2025 Help patients manage their type 2 diabetes 10/01 Patient has diabetic neuropathy 10/01/2025 Weekly blood pressure task 10/01/2025 Weekly blood pressure task 10/01/2025 Weekly blood pressure task 10/01/2025 Patient has diabetic eye disease 10/01/2025 Patient has diabetic eye disease 10/01/2025 Patient has diabetic eye disease 10/01/2025 Patient has chronic kidney disease 10/01/2025 Patient has chronic kidney disease 10/01/2025 Patient has chronic kidney disease 10/01/2025 Patient has diabetic neuropathy 10/01/2025 Patient has diabetic neuropathy 10/01/2025 Patient has diabetic neuropathy 10/01/2025 Weekly blood pressure task 10/02/2025 Weekly blood pressure task 10/02/2025 Weekly blood pressure task 10/02/2025 Weekly blood pressure task 10/02/2025 Patient has diabetic eye disease 10/02/2025 Patient has diabetic eye disease 10/02/2025 Patient has diabetic eye disease 10/02/2025 Patient has diabetic eye disease 10/02/2025 Patient has chronic kidney disease 10/02/2025 Patient has chronic kidney disease 10/02/2025 Patient has chronic kidney disease 10/02/2025 Patient has chronic kidney disease 10/02/2025 Patient has diabetic neuropathy 10/02/2025 Patient has diabetic neuropathy 10/02/2025 Patient has diabetic neuropathy 10/02/2025 Patient has diabetic neuropathy 10/02/2025 Weekly blood pressure task 10/03/2025 Weekly blood pressure task 10/03/2025 Weekly blood pressure task 10/03/2025 Weekly blood pressure task 10/03/2025 Patient has diabetic eye disease 10/03/2025 Patient has diabetic eye disease 10/03/2025 Patient has diabetic eye disease 10/03/2025 Patient has diabetic eye disease 10/03/2025 Patient has chronic kidney disease 10/03/2025 Patient has chronic kidney disease 10/03/2025 Patient has chronic kidney disease 10/03/2025 Patient has chronic kidney disease 10/03/2025 Patient has diabetic neuropathy 10/03/2025 Patient has diabetic neuropathy 10/03/2025 Patient has diabetic neuropathy 10/03/2025 Patient has diabetic neuropathy 10/03/2025 Weekly blood pressure task 10/08/2025 Weekly blood pressure task 10/08/2025 Weekly blood pressure task 10/08/2025 Weekly blood pressure task 10/08/2025 Patient has diabetic eye disease 10/08/2025 Patient has diabetic eye disease 10/08/2025 Patient has diabetic eye disease 10/08/2025 Patient has diabetic eye disease 10/08/2025 Patient has chronic kidney disease 10/08/2025 Patient has chronic kidney disease 10/08/2025 Patient has chronic kidney disease 10/08/2025 Patient has chronic kidney disease 10/08/2025 Patient has diabetic neuropathy 10/08/2025 Patient has diabetic neuropathy 10/08/2025 Patient has diabetic neuropathy 10/08/2025 Patient has diabetic neuropathy 10/08/2025 Insurance [facility] - HSN PARTIAL (MEDICAID) Care Teams Sulfate Drier Machine Operator Relationship Specialty Start Date End Date Gil MarileeBRANDEN bills [address] [place] [address] PCP - General Family Medicine 03/23/23 Cristo Garcia MD [address] [place] [address] Rheumatology 09/01/24 Yoselyn Lyons [address] [place] [address] Ophthalmology 09/01/24 Balbir Don [address] [facility] 301 [place] [address] Sleep Medicine 09/01/24 Lindsay Nur, MorenitaD [address] [place] [address] Pharmacist Pharmacy 05/29/25 Meño Butcher MD [address] [place] [address] 3rd [place] [address] Cardiology 07/06/25 Dr. Ramirez [address] [place] [address] [address] [place] [phone] Nephrology 09/01/24
--- OUTSIDE RECORDS SUMMARY | 2025-10-09 21:11 | XMS_ITS | Encounter Summary ---
Author Organization [email or web address] Address [address] [facility] [address] [place] [address] Care Team Providers Care Dog Groomer Name Role Phone Marilee Cordero FOOD STOREROOM CLERK Primary Care Provider [phone] Cristo Garcia MD Unavailable Doris Candelario Unavailable [phone] Yoselyn Lyons Unavailable Unavailable Balbir Don Unavailable Lindsay NurD Unavailable [phone] Meño Butcher MD Unavailable [phone] Reason for Visit * Reason Comments Med Refill Encounter Details Date Type Department Care Team (Late st Contact Info) Description 07/23/2023 Refill [facility] [address] [place] [address] Donavan Mcgee AGNP Social History Tobacco Use [...] as of this encounter Plan of Treatment Not on file documented as of this encounter Visit Diagnoses Not on filedocumented in this encounter Additional Health Concerns Assessment Noted Time PHQ-9 Depression Total Score: 1 10/17/20 22 10:05 AM EST documented as of this encounter Care Teams Dog Groomer Relationship Specialty Start Date End Date Marilee Cordero FNP [address] [place] [address] PCP - General Family Medicine 03/23/23 Cristo Garcia MD [address] [place] [address] [address] [place] [address] Rheumatology 09/01/24 Doris Candelario [address] [place] [address] Cardiology 09/01/24 07/05/25 Yoselyn Lyons [address] [place] [address] Ophthalmology 09/01/24 Balbir Don 22 [facility] 301 [place] [address] Sleep Medicine 09/01/24 Lindsay Nur PharmD [address] [place] [address] Pharmacist Pharmacy 05/29/25 Meño Butcher MD [address] [place] [address] 3rd [place] [address] Cardiology 07/06/25 Dr. Ramirez 100 [facility] 200 [place] [address] Nephrology 09/01/24 [facility] 03/18/25 05/04/25 documented as of this encounter
--- OUTSIDE RECORDS SUMMARY | 2025-10-09 21:11 | XMS_ITS | Encounter Summary ---
Author Organization [employer] Address [address] [place] [address] [address] [place] [address] Care Team Providers Care Director International Name Role Phone Marilee Cordero Primary Care Provider [phone] Cristo Garcia MD Unavailable Doris Candelario Unavailable [phone] Yoselyn Lyons Unavailable Unavailable Balbir Don Unavailable Lindsay Nur PharmD Unavailable [phone] Meño Butcher MD Unavailable [phone] Reason for Referral * Consultation (Routine) - Closed Specialty Diagnoses / Procedures Referred By Contzena t Referred To Contact Nephrology Diagnoses Albuminuria Marilee Cordero FNP [address] [place] [address] Phone: tel: fax: Bayron Marshall MD [address] [facility] 200 [place] [address] Phone: tel: fax: Referral ID Status Reason Start Date Expiration Date V isits Requested Visits Authorized [id number] Closed Specialty Services Required 12/29/2023 12/28/2024 1 1 Encounter Details Date Type Department Care Team (Late st Contact Info) Description 12/29/2023 Orders Only [facility] [address] [place], [place] [phone] Marilee Cordero FNP [address] [place], [place] [phone] Albuminuria (Primary Dx) Social History Tobacco Use [...] on file documented as of this encounter Procedures Procedure [...] documented as of this encounter Care Teams Director International Relationship Specialty Start Date End Date Marilee CorderoBRANDEN [address] [place] [address] PCP - General Family Medicine 03/23/23 Cristo Garcia MD [address] [place] [address] Rheumatology 09/01/24 Doris Candelario [address] [place] [address] Cardiology 09/01/24 07/05/25 Yoselyn Lyons 180 [place] [address] Ophthalmology 09/01/24 Balbir Don 22 [facility] 301 [place] [address] Sleep Medicine 09/01/24 Lindsay Nur PharmD [address] [place] [address] Pharmacist Pharmacy 05/29/25 Meño Butcher MD [address] [place] [address] 3rd [place] [address] Cardiology 07/06/25 Dr. Ramirez 100 [facility] 200 [place] [address] Nephrology 09/01/24 [facility] 03/18/25 05/04/25 documented as of this encounter
--- OUTSIDE RECORDS SUMMARY | 2025-10-09 21:11 | XMS_ITS | Encounter Summary ---
Author Organization [employer] Address [address] [facility] 7t [place] [address] Care Team Providers Care Athletic Team Physician Name Role Phone Marilee Cordero Primary Care Provider [phone] Cristo Garcia MD Unavailable Yoselyn Lyons Unavailable Unavailable Balbir Don Unavailable Lindsay Nur PharmD Unavailable [phone] Meño Butcher MD Unavailable [phone] Encounter Details Date Type Department Care Team (Late st Contact Info) Description 10/08/[address] [facility] [address] [place] [address] Marilee Cordero FNP [address] [place], [place] [id number] Social History Tobacco Use Types Packs/Day Years [...] encounter Miscellaneous Notes * Telephone Encounter - Rosalba Awan - 10/08/2025 4:16 PM EST Pharmacy [facility] attempted outreach call on 10/08/25 for CDTM - Diabetes appointment; however, unable to reach patient. LVM for patient to contact Rosalba Awan at [phone]. documented in this encounter Plan of Treatment Not on file documented as of this encounter Goals Goal Patient Goal Type Associated Problems Recent Progress Patient-Stated? Author Help patients manage their type 2 diabetes Care Plan Help patients manage their type 2 diabetes No Lindsay Nur, PharmD Weekly blood pressure task Care Plan Weekly blood pressure task No Toni Nura, PharmD Help patients manage their type 2 diabetes Care Plan Help patients manage their type 2 diabetes No Toni Nura, PharmD Patient has diabetic eye disease Care Plan Patient has diabetic eye disease No Dillon Nurcia, PharmD Help patients manage their type 2 diabetes Care Plan Help patients manage their type 2 diabetes No Toni Nura, PharmD Patient has chronic kidney disease Care Plan Patient has chronic kidney disease No Toni Nura, PharmD Help patients manage their type 2 diabetes Care Plan Help patients manage their type 2 diabetes No Toni Nura, PharmD Patient has diabetic neuropathy Care Plan Patient has diabetic neuropathy No Toni Nura, PharmD Weekly blood pressure task Care Plan Weekly blood pressure task No Toni Nura, PharmD Weekly blood pressure task Care Plan Weekly blood pressure task No Toni Nura, PharmD Weekly blood pressure task Care Plan Weekly blood pressure task No Toni Nura, PharmD Patient has diabetic eye disease Care Plan Patient has diabetic eye disease No Liudmila Lindsay, PharmD Patient has diabetic eye disease Care Plan Patient has diabetic eye disease No Liudmila Lindsay, PharmD Patient has diabetic eye disease Care Plan Patient has diabetic eye disease No Dillon Nurcia, PharmD Patient has chronic kidney disease Care Plan Patient has chronic kidney disease No Dillon Nurcia, PharmD Patient has chronic kidney disease Care Plan Patient has chronic kidney disease No Dillon Nurcia, PharmD Patient has chronic kidney disease Care [...] Plan Patient has chronic kidney disease No Rosabla Awan Patient has chronic kidney disease Care Plan Patient has chronic kidney disease No Rosalba Awan Patient has chronic kidney disease Care Plan Patient has chronic kidney disease No Lv, Rosangelie Patient has chronic kidney disease Care Plan Patient has chronic kidney disease No Cesilia Awanngelie Patient has diabetic neuropathy Care Plan Patient has diabetic neuropathy No Cesilia Awanngcristo Patient has diabetic neuropathy Care Plan Patient has diabetic neuropathy No Rosalba Awan Patient has diabetic neuropathy Care Plan Patient has diabetic neuropathy No Cesilia Awanngelie Patient has diabetic neuropathy Care Plan Patient has diabetic neuropathy No Cesilia Awanngelie Weekly blood pressure task Care Plan Weekly blood pressure task No Phalen Marilee, RN DIABETES EDUCATOR Weekly blood pressure task Care Plan Weekly blood pressure task No Phalen, Marilee, RN DIABETES EDUCATOR Weekly blood pressure task Care Plan Weekly blood pressure task No Phalen, Marilee, RN DIABETES EDUCATOR Weekly blood pressure task Care Plan Weekly blood pressure task No Phalen, Marilee, RN DIABETES EDUCATOR Patient has diabetic eye disease Care Plan Patient has diabetic eye disease No Phalen Marilee, RN DIABETES EDUCATOR Patient has diabetic eye disease Care Plan Patient has diabetic eye disease No Phalen, Marilee, RN DIABETES EDUCATOR Patient has diabetic eye disease Care Plan Patient has diabetic eye disease No Phalen Marilee, RN DIABETES EDUCATOR Patient has diabetic eye disease Care Plan Patient has diabetic eye disease No Phalen, Marilee, RN DIABETES EDUCATOR Patient has chronic kidney disease Care Plan Patient has chronic kidney disease No Phalen, Marilee, RN DIABETES EDUCATOR Patient has chronic kidney disease Care Plan Patient has chronic kidney disease No Phalen, Marilee, RN DIABETES EDUCATOR Patient has chronic kidney disease Care Plan Patient has chronic kidney disease No Phalen, Marilee, RN DIABETES EDUCATOR Patient has chronic kidney disease Care Plan Patient has chronic kidney disease No Phalen, Marilee, RN DIABETES EDUCATOR Patient has diabetic neuropathy Care Plan Patient has diabetic neuropathy No Phalnew Marilee, RN DIABETES EDUCATOR Patient has diabetic neuropathy Care Plan Patient has diabetic neuropathy No Phalen Marilee, RN DIABETES EDUCATOR Patient has diabetic neuropathy Care Plan Patient has diabetic neuropathy No Phalen, Marilee, RN DIABETES EDUCATOR Patient has diabetic neuropathy Care Plan Patient has diabetic neuropathy No Phalen, Marilee, RN DIABETES EDUCATOR Weekly blood pressure task Care Plan Weekly blood pressure task No Rosalba Awan Weekly blood pressure task Care Plan Weekly blood pressure task No Christopher Awanelitasia Weekly blood pressure task Care Plan Weekly blood pressure task No Cesilia Awanngcristo Weekly blood pressure task Care Plan Weekly [...] Patient has diabetic neuropathy No Rosalba Awan documented as of this encounter Visit Diagnoses Not on filedocumented in this encounter Additional Health Concerns Active Problems Noted Date [...] neuropathy 10/08/2025 Patient has diabetic neuropathy 10/08/2025 Assessment Noted Time PHQ-9 Depression Total Score: 13 01/27/ 025 8:59 AM EDT documented as of this encounter Care Teams Athletic Team Physician Relationship Specialty Start Date End Date Marilee Cordero FNP [address] [place] [address] PCP - General Family Medicine 03/23/23 Cristo Garcia MD [address] [place] [address] Rheumatology 09/01/24 Yoselyn Lyons [address] [place] [address] Ophthalmology 09/01/24 Balbri Don 22 [facility] [address] [place] [address] Sleep Medicine 09/01/24 Lindsay Nur PharmD 230 [place] [address] Pharmacist Pharmacy 05/29/25 Meño Butcher MD [address] [place] [address] 3rd [place] [address] Cardiology 07/06/25 Dr. Ramirez [address] [place] [address] [address] [place] [id number] Nephrology 09/01/24 documented as of this encounter
--- OUTSIDE RECORDS SUMMARY | 2025-10-09 21:11 | XMS_ITS | Encounter Summary ---
Author Organization [employer] Address 75 [facility] 7t [place] [address] Care Team Providers Care Manager Education Name Role Phone Marilee Cordero SERVICE CENTER COORDINATOR Primary Care Provider [phone] Cristo Garcia MD Unavailable Doris Candelario Unavailable [phone] Yoselyn Lyons Unavailable Unavailable Balbir Don Unavailable Lindsay NurD Unavailable [phone] Meño Butcher MD Unavailable [phone] Encounter Details Date Type Department Care Team (Late st Contact Info) Description 08/11/2023 Abstract [facility] [address] [place], [place] [phone] Gavino Lacey, DIANA [address] [place], [place] [phone] Social History Tobacco Use Types Packs/Day Years [...] documented as of this encounter Care Teams Manager Education Relationship Specialty Start Date End Date Marilee Cordero FNP [address] [place] [address] PCP - General Family Medicine 03/23/23 Cristo Garcia MD [address] [place] [address] Rheumatology 09/01/24 Doris Candelario [address] [place] [address] Cardiology 09/01/24 07/05/25 Yoselyn Lyons 180 [place] [address] Ophthalmology 09/01/24 Balbir Don 22 [facility] 301 [place] [address] Sleep Medicine 09/01/24 Lindsay Nur PharmD 230 [place] [address] Pharmacist Pharmacy 05/29/25 Meño Butcher MD [address] [place] [address] Drive 3rd [place] [address] Cardiology 07/06/25 Dr. Ramirez 100 [facility] 200 [place] [address] Nephrology 09/01/24 [facility] 03/18/25 05/04/25 documented as of this encounter
--- OUTSIDE RECORDS SUMMARY | 2025-10-09 21:11 | XMS_ITS | Clinical Summary ---
Author Organization [facility] [place] [address] Phone Care Team Providers Care Shut Off Worker Name Role Phone Physician, Pcp Unknown Primary [...] Noted Date Diagnosed Date Acute respiratory failure with hypoxia Hypoxia 02/15/2025 Surgical History Surgery Date Site/Laterality Comments OTHER SURGICAL HISTORY 07/03/2002 PROCEDURE: HISTORY OTHER; COMMENT: nasal septal reconstruction with laser turbinectomy Medical History Medical History Date Comments HTN (hypertension) 06/04/2012 DX:HTN (hyper tension) DM2 (diabetes mellitus, type 2) ([facility] V24, [facility] V28) 06/04/2012 DX:DM2 (diabetes mellitus, t ype 2) ([facility]) Obstructive sleep apnea 06/04/2012 DX:Obstr uctive sleep apnea Psoriatic arthritis ([facility] V24, [facility] V28) 06/04/2012 DX:Psoriatic arthritis ([facility]) Hyperlipidemia 06/04/2012 DX:Hyperlipidemi a; COMMENT: [...] mmol/L LAB CHEMISTRY METHOD 06/07/2025 6:58 AM [facility] Potassium 3.6 3.5 - 5.5 mmol/L LAB CHEMISTRY METHOD 06/07/2025 6:58 AM [facility] Chloride 99 96 - 110 mmol/L LAB CHEMISTRY METHOD 06/07/2025 6:58 AM [facility] CO2 35(H) 21 - 32 mmol/L LAB CHEMISTRY METHOD 06/07/2025 6:58 AM [facility] Anion Gap 5 3 - 11 LAB CHEMISTRY METHOD 06/07/2025 6:58 AM [facility] Glucose 200(H) 70 - 100 mg/dL LAB CHEMISTRY METHOD 06/07/2025 6:58 AM [facility] BUN 29(H) 5 - 25 mg/dL LAB CHEMISTRY METHOD 06/07/2025 6:58 AM EDT [facility] Creatinine 1.20 0.70 - 1.30 mg/dL LAB CHEMISTRY METHOD 06/07/2025 6:58 AM EDT [facility] eGFR 71 >=60 mL/min/1. 73m2 LAB CHEMISTRY METHOD 06/07/2025 6:58 AM EDT [facility] Comment:Calculation based on the Chronic Kidney Disease Epidemiology Collaboration (CKD-EPI) equation refit without adjustment for race. BUN/Creatinine Ratio 24.2 LAB CHEMISTRY METHOD 06/07/2025 6:58 AM EDT [facility] Calcium 9.2 8.5 - 10.5 mg/dL LAB CHEMISTRY METHOD 06/07/2025 6:58 AM EDT [facility] Blood Venous blood specimen / Unknown Venipuncture / Unknown 06/07/2025 5:51 AM EDT 06/07/2025 6:23 AM EDT us Hyacinth DORSEY LAB BLOOD ORDERABLES Final R esult Performing Organization Address City/[facility]/ZIP Co de Phone Number [facility] [address] [place] [address], * Hepatitis C antibody (02/16/2025 2:00 PM EDT) Hepatitis C Antibody Negative Negative LAB CHEMISTRY METHOD 02/16/2025 5:37 PM EDT [facility] Blood Venous blood specimen / Unknown Venipuncture / Unknown 02/16/2025 2:00 PM EDT 02/16/2025 2:05 PM EDT us Ish David MD LAB BLOOD ORDERABLES Final Res ult [facility] [address] [place] [address], from Last 3 Months or Most Recently Relevant to Health Maintenance Insurance [facility] [employer] Advance Directives * Full [...] currently active code status orders. Care Teams Shut Off Worker Relationship Specialty Start Date End Date Physician, Pcp Unknown PCP - General 05/01/25
--- OUTSIDE RECORDS SUMMARY | 2025-10-09 21:11 | XMS_ITS | Encounter Summary ---
Author Organization [employer] Address [address] [facility] 7t [place] [address] Care Team Providers Care Engagement Specialist Name Role Phone Marilee Cordero Primary Care Provider [phone] Cristo Garcia MD Unavailable Yoselyn Lyons Unavailable Unavailable Balbir Don Unavailable Lindsay Nur PharmD Unavailable [phone] Meño Butcher MD Unavailable [phone] Reason for Visit * Reason Onset Date Comments EMG Results 10/03/2025 Encounter Details Date Type Department Care Team ([facility] st Contact Info) Description 10/03/2025 Telephone [facility] [address] [place], [place] [phone] Marilee Cordero FNP [address] [place] [address] EMG Results Social History Tobacco Use Types Packs/Day Years [...] encounter Miscellaneous Notes * Telephone Encounter - BRANDEN Patel - 10/03/2025 12:33 PM EST Pt did not answer during televisit to review results. 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 The nerve testing demonstrated two primary findings: First, it demonstrated bilateral carpal tunnelsyndrome, which helps to explain the numbness/tingling in his hands. For treatment options, he can consider wrist splints, physical therapy, and/or referral to Hand specialist for consideration of inj ections/surgery. The second important finding was peripheral neuropathy, indicating damage to the nerves/nerve fibers. It is very important that he have good blood sugar and blood pressure control to help with this. If he would like to discuss further, please schedule him for an appointment. Thank you! documented in this encounter Plan of Treatment Not on file documented as of this encounter Goals Goal Patient Goal Type Associated Problems Recent Progress Patient-Stated? Author Help patients manage their type 2 diabetes Care Plan Help patients manage their type 2 diabetes No Toni Nura, PharmD Weekly blood pressure task Care Plan Weekly blood pressure task No Liudmila Lindsay, PharmD Help patients manage their type 2 diabetes Care Plan Help patients manage their type 2 diabetes No Liudmila Lindsay, PharmD Patient has diabetic eye disease Care Plan Patient has diabetic eye disease No Nur Lindsay, PharmD Help patients manage their type 2 diabetes Care Plan Help patients manage their type 2 diabetes No Liudmila Lindsay, PharmD Patient has chronic kidney disease Care Plan Patient has chronic kidney disease No Nur Lindsay, PharmD Help patients manage their type 2 diabetes Care Plan Help patients manage their type 2 diabetes No Liudmila Lindsay, PharmD Patient has diabetic neuropathy Care Plan Patient has diabetic neuropathy No Liudmila Lindsay, PharmD Weekly blood pressure task Care Plan Weekly blood pressure task No Liudmila Lindsay, PharmD Weekly blood pressure task Care Plan Weekly blood pressure task No Dillon Nurcia, PharmD Weekly blood pressure task Care Plan Weekly blood pressure task No Liudmila Lindsay, PharmD Patient has diabetic eye disease Care Plan Patient has diabetic eye disease No Nur Lindsay, PharmD Patient has diabetic eye disease Care Plan Patient has diabetic eye disease No Nur Lindsay, PharmD Patient has diabetic eye disease Care Plan Patient has diabetic eye disease No Nur Lindsay, PharmD Patient has chronic kidney disease Care Plan Patient has chronic kidney disease No Nur Lindsay, PharmD Patient has chronic kidney disease Care Plan Patient has chronic kidney disease No Liudmila Lindsay, PharmD Patient has chronic kidney disease Care Plan Patient has chronic kidney disease No Nur Lindsay, PharmD Patient has diabetic neuropathy Care Plan Patient has diabetic neuropathy No Nur Lindsay, PharmD Patient has diabetic neuropathy Care Plan Patient has diabetic neuropathy No Nur Lindsay, PharmD Patient has diabetic neuropathy Care Plan Patient has diabetic neuropathy No Nur Lindsay, PharmD Weekly blood pressure task Care Plan Weekly blood pressure task No Cesilia Awanngelie Weekly blood pressure task Care Plan Weekly blood pressure task No Lv Rosangelie Weekly blood pressure task Care Plan Weekly blood pressure task No Lv Rosangelie Weekly blood pressure task Care Plan Weekly blood pressure task No Lv Rosangelie Patient has diabetic eye disease Care Plan Patient has diabetic eye disease No Lv Rosangelie Patient has diabetic eye disease Care Plan Patient has diabetic eye disease No Lv Rosangelie Patient has diabetic eye disease Care Plan Patient has diabetic eye disease No Lv, Rosangelie Patient has diabetic eye disease Care Plan Patient has diabetic eye disease No Lv Rosangelie Patient has chronic kidney disease Care Plan Patient has chronic kidney disease No Lv Rosangelie Patient has chronic kidney disease Care Plan Patient has chronic kidney disease No Lv Rosangelie Patient has chronic kidney disease Care Plan Patient has chronic kidney disease No Lv Rosangelie Patient has chronic kidney disease Care Plan Patient has chronic kidney disease No Lv Rosangelie Patient has diabetic neuropathy Care Plan Patient has diabetic neuropathy No Lv Rosangelie Patient has diabetic neuropathy Care Plan Patient has diabetic neuropathy No Lv Rosangelie Patient has diabetic neuropathy Care Plan Patient has diabetic neuropathy No Lv Rosangelie Patient has diabetic neuropathy Care Plan Patient has diabetic neuropathy No Cesilia Awanngelie Weekly blood pressure task Care Plan Weekly blood pressure task No Phalnew Marilee, MEDICAL RECEPTION Weekly blood pressure task Care Plan Weekly blood pressure task No Phalnew, Marilee, MEDICAL RECEPTION Weekly blood pressure task Care Plan Weekly blood pressure task No Phalen Marilee, MEDICAL RECEPTION Weekly blood pressure task Care Plan Weekly blood pressure task No Phalen, Marilee, MEDICAL RECEPTION Patient has diabetic eye disease Care Plan Patient has diabetic eye disease No Phalen, Marilee, MEDICAL RECEPTION Patient has diabetic eye disease Care Plan Patient has diabetic eye disease No Phalen, Marilee, MEDICAL RECEPTION Patient has diabetic eye disease Care Plan Patient has diabetic eye disease No Phalen, Marilee, MEDICAL RECEPTION Patient has diabetic eye disease Care Plan Patient has diabetic eye disease No Phalen, Marilee, MEDICAL RECEPTION Patient has chronic kidney disease Care Plan Patient has chronic kidney disease No Phalen, Marilee, MEDICAL RECEPTION Patient has chronic kidney disease Care Plan Patient has chronic kidney disease No Phalen, Marilee, MEDICAL RECEPTION Patient has chronic kidney disease Care Plan Patient has chronic kidney disease No Phalen, Marilee, MEDICAL RECEPTION Patient has chronic kidney disease Care Plan Patient has chronic kidney disease No Phalen, Marilee, MEDICAL RECEPTION Patient has diabetic neuropathy Care Plan Patient has diabetic neuropathy No Phalen, Marilee, MEDICAL RECEPTION Patient has diabetic neuropathy Care Plan Patient has diabetic neuropathy No Phalen, Marilee, MEDICAL RECEPTION Patient has diabetic neuropathy Care Plan Patient has diabetic neuropathy No Marilee Cordero FNP Patient has diabetic neuropathy Care Plan Patient has diabetic neuropathy No Marilee Cordero FNP documented as of this encounter Visit Diagnoses [...] neuropathy 10/03/2025 Patient has diabetic neuropathy 10/03/2025 Assessment Noted Time PHQ-9 Depression Total Score: 13 025 8:59 AM EDT documented as of this encounter Care Teams Engagement Specialist Relationship Specialty Start Date End Date Marilee Cordero FNP [address] [place] [address] PCP - General Family Medicine 03/23/23 Cristo Garcia MD [address] [place] [address] [address] [place] [address] Rheumatology 09/01/24 Yoselyn Lyons [address] [place] [address] Ophthalmology 09/01/[address] [facility] [address] [place] [address] Sleep Medicine 09/01/24 Lindsay Nur PharmD 230 [place] [address] Pharmacist Pharmacy 05/29/25 Meño Butcher MD [address] [place] [address] 3rd [place] [address] Cardiology 07/06/25 Dr. Ramirez [address] [place] [address] [address] [place] [address] Nephrology 09/01/24 documented as of this encounter
== END 2025-10-09 14:16 | disposition home or self-care (01) ==
LOC: HO.HKA 13:55
PROVIDERS: PCP Registered Nurse; Visit Provider Internal Medicine Hypertension Specialist
DX: R80.9 Proteinuria, unspecified (principal); R31.9 Hematuria, unspecified; L40.50 Arthropathic psoriasis, unspecified; I50.23 Acute on chronic systolic (congestive) heart failure; N18.9 Chronic kidney disease, unspecified
CPT/HCPCS: 99214